=== PATIENT | male | born 1945 | race Caucasian/White ===

== ENCOUNTER 2018-04-15 06:56 | Inpatient (IN) | payer OTHER, MEDICARE ==
--- NOTE | 2018-04-15 07:52 | PDOC ---
History of Present Illness - General History Source: Patient Exam Limitations: No Limitations - History of Present Illness Initial Comments: 04/15/18 09:19 The patient is a 72 year old male with a significant PMH of COPD, afib( on eliquis), hypertension and BPH who presents to the emergency department with an injury s/p fall earlier today. The patient reports that he woke up this morning to use the rest room and slipped and fell. The patient reports that he had an episode of lightheadedness and dizziness when he was walking to the bathroom and slipped on his urine . The patient states that he fell forward but denies any loc or head injury. He denies any pain prior to falling. He also reports some difficulty speaking clearly secondary to cough. The patient reports that he recently got his flu shot. He denies any other symptoms. He denies any fever, chills, nausea, vomit, diarrhea, constipation or urinary symptoms. He denies any chest pain, shortness of breath, headache . the patient denies any other complaints. PCP: Dr. Cordoba <Mariajose Jiang - Last Filed: 04/15/18 09:20> - General History Source: Patient Exam Limitations: No Limitations <Hemalatha Manzo - Last Filed: 04/15/18 15:58> - General Chief Complaint: Injury Stated Complaint: FALL/WEAKNESS Time Seen by Provider: 04/15/18 07:52 Past History <Mariajose Jiang - Last Filed: 04/15/18 09:20> - Past Medical History Anemia: No Cardiac Disorders: Yes (A-fib) COPD: Yes Disorders: Yes (BPH) HTN: Yes - Surgical History Abdominal Surgery: Yes (hernia) Orthopedic Surgery: Yes (rt hip replacement) - Suicide/Smoking/Psychosocial Hx Smoking History: Never smoked Have you smoked in the past 12 months: No Information on smoking cessation initiated: No Hx Alcohol Use: No Drug/Substance Use Hx: No Substance Use Type: None Hx Substance Use Treatment: No <Hemalatha Manzo - Last Filed: 04/15/18 15:58> - Past Medical History Allergies/Adverse Reactions: Allergies Allergy/AdvReac Type Severity Reaction Status Date / Time No Known Allergies Allergy Verified 04/15/18 07:03 Home Medications: Ambulatory Orders Alprazolam [Xanax] 1 mg PO QID 03/06/18 Apixaban [Eliquis] 5 mg PO BID 03/06/18 Atenolol [Tenormin -] 50 mg PO DAILY 03/06/18 Folic Acid 1 mg PO DAILY 03/06/18 Clopidogrel Bisulfate [Plavix -] 75 mg PO DAILY 03/07/18 Albuterol 2.5/Ipratropium 0.5 [Duoneb -] 1 vial NEB QID PRN 03/09/18 Cefuroxime Axetil [Ceftin -] 500 mg PO Q12H 2 Days #4 tablet 03/11/18 Mineral Oil/Pet Hy-Phl [Aquaphor -] 1 applic TP BID jar 03/11/18 Prednisone See Taper PO DAILY #42 tablet 03/11/18 Tamsulosin HCl [Flomax -] 0.4 mg PO DAILY@0830 30 Days #30 cap.er.24h 03/11/18 Budesonide/Formeterol Fumarate [SYMBICORT 80/4.5mcg -] 2 puff IH BID inhaler Diltiazem Cd [Cardizem Cd -] 120 mg PO DAILY #30 cap.cd.24h 03/19/18 Docusate Sodium [Colace -] 300 mg PO HS capsule 03/19/18 Polyethylene Glycol 3350 [Miralax 119 gm Btl -] 17 gm PO DAILY bottle 03/19/18 predniSONE [Deltasone -] 20 mg PO DAILY tablet 03/19/18 Review of Systems - Review of Systems Able to Perform ROS?: Yes Comments:: 04/15/18 09:19 GENERAL/CONSTITUTIONAL: (+)injury s/p fall. No fever or chills. No weakness. HEAD, EYES, EARS, NOSE AND THROAT: No change in vision. No ear pain or discharge. No sore throat. CARDIOVASCULAR: No chest pain or shortness of breath. RESPIRATORY: (+)cough. No wheezing, or hemoptysis. GASTROINTESTINAL: No nausea, vomiting, diarrhea or constipation. GENITOURINARY: No dysuria, frequency, or change in urination. MUSCULOSKELETAL: No joint or muscle swelling or pain. No neck or back pain. SKIN: No rash NEUROLOGIC: (+)lightheaded, dizziness. No headache, vertigo, loss of consciousness, or change in strength/sensation. ENDOCRINE: No increased thirst. No abnormal weight change. HEMATOLOGIC/LYMPHATIC: No anemia, easy bleeding, or history of blood clots. ALLERGIC/IMMUNOLOGIC: No hives or skin allergy. <Mariajose Jiang - Last Filed: 04/15/18 09:20> *Physical Exam - Vital Signs Last Vital Signs Temp Pulse Resp BP Pulse Ox 97.9 F 84 20 116/68 95 04/15/18 07:03 04/15/18 07:03 04/15/18 07:03 04/15/18 07:03 04/15/18 07:03 - Physical Exam Comments: 04/15/18 09:19 GENERAL: A&O , answers questions, speaks in 3-4 word sentences The patient is in no acute distress. HEAD: Normal with no signs of trauma. EYES: PERRLA, EOMI, sclera anicteric, conjunctiva clear. ENT: Ears normal, nares patent, oropharynx clear without exudates. Moist mucous membranes. NECK: Normal range of motion, supple without lymphadenopathy, JVD, or masses. LUNGS: (+)wheezing, rhonchorous breath sounds. Breath sounds equal, no crackles. HEART:(+)distant heart sounds. Regular rate and rhythm, normal S1 and S2 without murmur, rub or gallop. ABDOMEN: Soft, nontender, normoactive bowel sounds. No guarding, no rebound. No masses palpable. EXTREMITIES: (+)right lower extremity edema. Normal range of motion. No clubbing or cyanosis. No erythema, or tenderness. NEUROLOGICAL: Cranial nerves II through XII grossly intact. Normal speech. No focal neurological deficits. MUSCULOSKELETAL: Back non-tender to palpation, no CVA tenderness SKIN: Warm, Dry, normal turgor, no rashes or lesions noted <Mariajose Jiang - Last Filed: 04/15/18 09:20> - Vital Signs Last Vital Signs Temp Pulse Resp BP Pulse Ox 97.9 F 84 20 116/68 95 04/15/18 07:03 04/15/18 07:03 04/15/18 07:03 04/15/18 07:03 04/15/18 07:03 <Hemalatha Manzo - Last Filed: 04/15/18 15:58> ED Treatment Course - LABORATORY CBC & Chemistry Diagram: 04/15/18 09:14 04/15/18 09:14 <Hemalatha Manzo - Last Filed: 04/15/18 15:58> Medical Decision Making - Critical Care Time Total Critical Care Time (minutes): 60 Critical Care Statement: The care of this patient involved high complexity decision making to prevent further life threatening deterioration of the patient 's condition and/or to evaluate & treat vital organ system(s) failure or risk of failure. - Medical Decision Making 04/15/18 11:34 EKG: SR rate of 84 bpm, axis nml, no st elevations or depression, t waves upright, right axis 04/15/18 11:35 Laboratory Tests 04/15/18 04/15/18 04/15/18 09:14 09:14 10:30 WBC 18.9 H Hgb 11.6 L Hct 35.1 L Plt Count 307 D ABG pH 7.34 L ABG pCO2 at Pt Temp 62.7 H* ABG pO2 at Pt Temp 58.6 L ABG HCO3 33.1 H Sodium 135 L Potassium 3.9 Chloride 96 L Carbon Dioxide 35 H BUN 9 Creatinine 0.4 L CXR: demonstrates RLL pneumonia Pt very hypoxic Is currently on Eliquis Will do CTA chest as well to r/o PE Admitted to Dr Poon Consults placed to ID, Cardiology Call placed to ICU resident for ICU admission given pt hypoxia Clinical impression: pneumonia, initial presentation hypoxia, initial presentation <Hemalatha Manzo - Last Filed: 04/15/18 15:58> *DC/Admit/Observation/Transfer - Attestations Scribe Attestion: 04/15/18 09:20 Documentation prepared by Mariajose Jiang, acting as medical clinic manager for Hemalatha Manzo MD. <Mariajose Jiang - Last Filed: 04/15/18 09:20> - Discharge Dispostion Decision to Admit order: Yes <Hemalatha Manzo - Last Filed: 04/15/18 15:58> Diagnosis at time of Disposition: Pneumonia Qualifiers: Pneumonia type: due to unspecified organism Laterality: right Lung location: lower lobe of lung Qualified Code(s): J18.1 - Lobar pneumonia, unspecified organism - Discharge Dispostion Condition at time of disposition: Fair
[2018-04-15] MEDS ORDERED: methylPREDNISolone NA SUCC 125 MG/2 ML VIAL IVPB ONE (08:26)
[2018-04-15] MEDS ORDERED: ALBUTEROL SO4 2.5/IPRATROPIUM 0.5 INH SOL 3 ML VIAL.NEB. NEB ONE ×4 (08:26→16:33)
[2018-04-15 09:27] LABS: BASO % 0.7 % (0-2.0); HEMATOCRIT 35.1 % (35.4-49); HEMOGLOBIN 11.6 GM/dL (11.7-16.9); LYMPH % 3.2 % (8-40); MCH 29.9 pg (25.7-33.7); MCHC 32.9 g/dl (32.0-35.9); MEAN CELL VOLUME 90.9 fl (80-96); MEAN PLT VOLUME 7.6 fl (7.5-11.1); MONO % 8.5 % (3.8-10.2); NEUT % 87.6 % (42.8-82.8); PLATELET COUNT 307 K/MM3 (134-434); RBC 3.86 M/mm3 (4.00-5.60); RDW 13.8 % (11.9-15.9); WHITE BLOOD COUNT 18.9 K/mm3 (4.0-10.0)
[2018-04-15 09:49] LABS: ALBUMIN 2.3 g/dl (3.4-5.0); ANION GAP 4 MMOL/L (8-16); BILIRUBIN,TOTAL 0.6 mg/dL (0.2-1); BLOOD UREA NITROGEN 9 mg/dL (7-18); CHLORIDE 96 mmol/L (98-107); CO2 35 mmol/L (21-32); CREATININE 0.4 mg/dL (0.55-1.3); GLUCOSE,RANDOM 117 mg/dL (74-106); POTASSIUM 3.9 mmol/L (3.5-5.1); SGOT/AST 19 U/L (15-37); SGPT/ALT 14 U/L (13-61); SODIUM 135 mmol/L (136-145); TOT PROT 5.8 g/dl (6.4-8.2)
[2018-04-15 09:53] LABS: ALK PHOS 67 U/L (45-117)
[2018-04-15] MEDS ORDERED: methylPREDNISolone NA SUCC 125 MG/2 ML VIAL ONE (09:53)
[2018-04-15] MEDS ORDERED: PIPERACILLIN/TAZOB 4.5 GM 4.5 GM in DEXTROSE 5%-WATER 100 ML IVPB ONE (10:00)
[2018-04-15] MEDS ORDERED: VANCOMYCIN 1,000 MG in DEXTROSE 5%-WATER - 250 ML IVPB ONE (10:00)
[2018-04-15 10:54] LABS: ARTERIAL BLD GAS O2 SATURATION 87.7 % (90-98.9); ARTERIAL BLOOD GAS BASE EXCESS 6.1 meq/l (-2-2); ARTERIAL BLOOD GAS PO2 58.6 mmHg (70-100); ARTERIAL BLOOD GAS pH 7.34 (7.35-7.45)
[2018-04-15 11:03] LABS: ALLENS TEST POSITIVE
[2018-04-15 11:04] LABS: ARTERIAL BLOOD GAS PCO2 62.7 mmHg (35-45)
[2018-04-15] MEDS ORDERED: VANCOMYCIN 1 GRAM (PRE-DOCKED) 1,000 MG/250 ML BAG IVPB ONE (11:23)
[2018-04-15] MEDS ORDERED: PIPERACILLIN/TAZOB 4.5 GM 4.5 GM/100 ML BAG IVPB ONE (11:23)
[2018-04-15 11:34] LABS: URINE APPEARANCE SLCLOUDY; URINE BILIRUBIN NEGATIVE (<2.0 mg/dL); URINE COLOR AMBER; URINE GLUCOSE (UA) NEGATIVE (NEGATIVE); URINE KETONE NEGATIVE (NEGATIVE); URINE NITRITE NEGATIVE (NEGATIVE); URINE UROBILINOGEN 4.0 E.U/dl mg/dL (0.2-1.0)
[2018-04-15 11:35] LABS: URINE LEUK ESTERASE 1+ (NEGATIVE); URINE PROTEIN 1+ (NEGATIVE)
[2018-04-15 11:55] LABS: EPI CELLS RARE /HPF (FEW); GRANULAR CASTS 3 /lpf; URINE MUCUS FEW
--- NOTE | 2018-04-15 12:30 | PN ---
Teaching Attending Note Name of Resident: Thien Lin ATTENDING PHYSICIAN STATEMENT I saw and evaluated the patient. I reviewed the resident's note and discussed the case with the resident. I agree with the resident's findings and plan as documented. SUBJECTIVE: Pt seen and examined in the ER. Briefly, 72yo male with h/o HTN, COPD, atrial fibrillation on anticoagulation, BPH who presents after fall at home. Denies chest pain or palpitations. [place]on short of breath and with a productive cough. No fevers, chills or sweats. No recent travel or sick contacts. Was hospitalized last month for pneumonia treated with zosyn and vanco. MRSA in sputum but felt to be contaminant. He is a former long time smoker, quit last year, smoked on average 1 1/2 PPD. Hypoxic and in respiratory distress in the ER , placed on BiPAP. OBJECTIVE: Vital Signs Period Temp Pulse Resp BP Sys/Cleaning Pulse Ox Last 24 Hr 97.9 F-98.6 F 66-84 14-20 95-116/53-68 85-98 Intake & Output 04/12/18 04/13/18 04/14/18 04/15/18 23:59 23:59 23:59 23:59 Weight 63.503 kg Gen: somnolent but arousable, mildly tachypneic on BiPAP Heart: RRR Lung: distant breath sounds Abd: soft, nontender Ext: no edema CBC, BMP 04/15/18 09:14 04/15/18 09:14 ABG Results ABG pH 7.34 (7.35-7.45) L 04/15/18 10:30 ABG pCO2 at Pt Temp 62.7 mmHg (35-45) H* 04/15/18 10:30 ABG pO2 at Pt Temp 58.6 mmHg (70-100) L 04/15/18 10:30 ABG HCO3 33.1 meq/L (22-26) H 04/15/18 10:30 ABG O2 Sat (Measured) 87.7 % (90-98.9) L 04/15/18 10:30 ABG O2 Content 13.8 % vol (15-22) L 04/15/18 10:30 ABG Base Excess 6.1 meq/l (-2-2) H 04/15/18 10:30 ASSESSMENT AND PLAN: Acute on Chronic Hypoxic and Hypercapneic Respiratory Failure RLL Pneumonia Sepsis Acute COPD Exacerbation Atrial Fibrillation HTN BPH - IV antibiotics to cover health care acquired organisms - f/u cultures - send urinary antigens - check lactate - ID eval - IV medrol 60mg q8h - inhaled bronchodilators standing and PRN - O2 to keep SpO2 >88% - BiPAP to assist in work of breathing - rate control - continue anticoagulation - ICU monitoring for now critical care time spent in reviewing chart, evaluating patient and formulating plan 35 min
--- NOTE | 2018-04-15 13:36 | EKG ---
Test Reason : Blood Pressure : / mmHG Vent. Rate : 084 BPM Atrial Rate : 075 BPM P-R Int : 160 ms QRS Dur : 066 ms QT Int : 362 ms P-R-T Axes : 079 091 091 degrees QTc Int : 427 ms POOR DATA QUALITY, INTERPRETATION MAY BE ADVERSELY AFFECTED SINUS RHYTHM WITH MARKED SINUS ARRHYTHMIA RIGHTWARD AXIS LOW VOLTAGE QRS CANNOT RULE OUT ANTEROSEPTAL INFARCT , AGE UNDETERMINED ABNORMAL ECG WHEN COMPARED WITH ECG OF 12-MAR-2018 23:23, SINUS RHYTHM HAS REPLACED ATRIAL FIBRILLATION VENT. RATE HAS DECREASED BY 49 BPM QUESTIONABLE CHANGE IN QRS DURATION Confirmed by PRAKASH KENDRICK MD ([id number]) on 04/15/2018 1:36:00 PM Referred By: Confirmed By:PRAKASH KENDRICK MD
[2018-04-15] MEDS ORDERED: ALBUTEROL SO4 2.5/IPRATROPIUM 0.5 INH SOL 3 ML VIAL.NEB. NEB PRN (14:42)
[2018-04-15] MEDS ORDERED: AZITHROMYCIN IVPB 500 MG in DEXTROSE 5%-WATER - 250 ML IVPB ONE (15:22)
--- NOTE | 2018-04-15 15:22 | PN ---
Progress Note (short form) - Note Progress Note: id consult dictated RLL pneumonia hyopoxemic hypercapneic resp failure copd mrsa contact isolation vanco/zosyn/zith cultures legionella urinary antigen Problem List - Problems (1) Respiratory failure with hypoxia and hypercapnia Code(s): J96.91 - RESPIRATORY FAILURE, UNSPECIFIED WITH HYPOXIA; J96.92 - RESPIRATORY FAILURE, UNSPECIFIED WITH HYPERCAPNIA (2) Pneumonia Code(s): J18.9 - PNEUMONIA, UNSPECIFIED ORGANISM Qualifiers: Pneumonia type: due to unspecified organism Laterality: right Lung location: lower lobe of lung Qualified Code(s): J18.1 - Lobar pneumonia, unspecified organism (3) CHF exacerbation Code(s): I50.9 - HEART FAILURE, UNSPECIFIED (4) COPD exacerbation Code(s): J44.1 - CHRONIC OBSTRUCTIVE PULMONARY DISEASE W (ACUTE) EXACERBATION (5) MRSA (methicillin resistant Staphylococcus aureus) carrier Code(s): Z22.322 - CARRIER OR SUSPECTED CARRIER OF METHICILLIN RESIS STAPH
--- NOTE | 2018-04-15 15:24 | CONSULT ---
Consultation: REQUESTING PROVIDER: Dr. Manzo CONSULT REQUEST: We have been asked to medically evaluate this patient for Dr. Ovalles. HISTORY OF PRESENT ILLNESS: A 72 y.o. M w/ PMHx. of COPD(not on home O2), A. Fib ( on Eliquis), HTN and BPH, present to the ED for syncopal episode. Pt.s provided Hx, as Pt. was on Bipap. Over the last few days Pt. has been feeling increasingly lethargic with subjective fever, and coughing with phlegm production. Pt.and Pt's unable to describe phlegm. Pt. woke up this morning and went to use the bathroom(complaining of incontinence), when the Pt. slipped on his own urine and fell to the ground. Pt. denies hitting head or losing consciousness. Pt. was recently admitted for pneumonia here last month and was treat with Vancomycin and Zosyn. Pt. had a positive(?contamination) culture for MRSA. Pt. at this time endorses "leaking urine," suprapubic abdominal pain, fever, shortness of breath and a cough that has been present for a long time. REVIEW OF SYSTEMS: CONSTITUTIONAL: Present: fever, chills, diaphoresis, malaise Absent: generalized weakness, loss of appetite, weight change CARDIOVASCULAR: Absent: chest pain, syncope, palpitations, irregular heart rate , lightheadedness, peripheral edema RESPIRATORY: Present: cough, shortness of breath Absent: dyspnea with exertion, orthopnea, wheezing, stridor, hemoptysis GASTROINTESTINAL: Present: abdominal pain Absent: abdominal distension, nausea, vomiting, diarrhea, constipation, melena, hematochezia GENITOURINARY: Present: urgency, hesitancy Absent: dysuria, frequency, hematuria , flank pain, genital pain HEMATOLOGIC/IMMUNOLOGIC: Present: frequent infections NEUROLOGIC: Present: bladder incontinence Absent: headache, bowel changes PHYSICAL EXAMINATION Vital Signs - 24 hr 04/15/18 04/15/18 04/15/18 07:03 08:20 11:50 Temperature 97.9 F 98.6 F Pulse Rate 84 Pulse Rate [ 67 Left Apical] Respiratory 20 16 Rate Blood Pressure 116/68 Blood Pressure 95/64 [Left Arm] O2 Sat by Pulse 95 85 L 98 Oximetry (%) 04/15/18 04/15/18 04/15/18 12:22 12:38 14:25 Temperature 98.2 F Pulse Rate Pulse Rate [ 66 64 Left Apical] Respiratory 14 16 Rate Blood Pressure Blood Pressure 100/53 93/47 [Left Arm] O2 Sat by Pulse 86 L 99 99 Oximetry (%) 04/15/18 14:28 Temperature 98.0 F Pulse Rate Pulse Rate [ 57 L Left Apical] Respiratory 16 Rate Blood Pressure Blood Pressure 97/55 [Left Arm] O2 Sat by Pulse 100 Oximetry (%) GENERAL: Drowsy, lethargic, in moderate respiratory distress EARS, NOSE, THROAT: On Bipap LUNGS: Decreased breath sounds, on Bipap, right-sided crackles. No accessory muscle use.- Limited Exam HEART: Soft heart beat Regular rate and rhythm, normal S1 and S2 without murmur - Limited Exam ABDOMEN: Soft, nontender, not distended, normoactive bowel sounds, no guarding, no rebound, no masses. UPPER EXTREMITIES: 2+ right radial pulses, warm, well-perfused. No cyanosis. Mild clubbing. Cap refill <2 seconds. No peripheral edema. LOWER EXTREMITIES: Pulses not appreciated, warm, well-perfused. No calf tenderness. 1+ edema. PSYCHIATRIC: Cooperative. Good eye contact. SKIN: Warm, dry, xerotic flaky skin on the lower extremities Laboratory Results - last 24 hr 04/15/18 04/15/18 04/15/18 09:14 09:14 10:30 WBC 18.9 H RBC 3.86 L Hgb 11.6 L Hct 35.1 L MCV 90.9 MCH 29.9 MCHC 32.9 RDW 13.8 Plt Count 307 D MPV 7.6 Absolute Neuts (auto) 16.5 H Neutrophils % 87.6 H Lymphocytes % 3.2 L D Monocytes % 8.5 Eosinophils % 0.0 D Basophils % 0.7 D Nucleated RBC % 0 Anticoagulation Therapy No Result Required. Puncture Site Left radial ABG pH 7.34 L ABG pCO2 at Pt Temp 62.7 H* ABG pO2 at Pt Temp 58.6 L ABG HCO3 33.1 H ABG O2 Sat (Measured) 87.7 L ABG O2 Content 13.8 L ABG Base Excess 6.1 H [place] Test Positive O2 Delivery Device No Result Required. Oxygen Flow Rate 6l Vent Mode No Result Required. Vent Rate No Result Required. Mechanical Rate No Result Required. Pressure Support Vent No Result Required. Sodium 135 L Potassium 3.9 Chloride 96 L Carbon Dioxide 35 H Anion Gap 4 L BUN 9 Creatinine 0.4 L Creat Clearance w eGFR > 60 Random Glucose 117 H Calcium 8.0 L Total Bilirubin 0.6 AST 19 ALT 14 Alkaline Phosphatase 67 Creatine Kinase 41 Troponin I 0.02 Total Protein 5.8 L Albumin 2.3 L Urine Color Urine Appearance Urine pH Ur Specific [place] Urine Protein Urine Glucose (UA) Urine Ketones Urine Blood Urine Nitrite Urine Bilirubin Urine Urobilinogen Ur Leukocyte Esterase Urine WBC (Auto) Urine RBC (Auto) Ur Epithelial Cells Granular Casts Urine Mucus 04/15/18 11:22 WBC RBC Hgb Hct MCV MCH MCHC RDW Plt Count MPV Absolute Neuts (auto) Neutrophils % Lymphocytes % Monocytes % Eosinophils % Basophils % Nucleated RBC % Anticoagulation Therapy Puncture Site ABG pH ABG pCO2 at Pt Temp ABG pO2 at Pt Temp ABG HCO3 ABG O2 Sat (Measured) ABG O2 Content ABG Base Excess [place] Test O2 Delivery Device Oxygen Flow Rate Vent Mode Vent Rate Mechanical Rate Pressure Support Vent Sodium Potassium Chloride Carbon Dioxide Anion Gap BUN Creatinine Creat Clearance w eGFR Random Glucose Calcium Total Bilirubin AST ALT Alkaline Phosphatase Creatine Kinase Troponin I Total Protein Albumin Urine Color Kimber[place] Urine Appearance Slcloudy Urine pH 5.0 D Ur Specific [place] 1.018 Urine Protein 1+ H Urine Glucose (UA) Negative Urine Ketones Negative Urine Blood 1+ H Urine Nitrite Negative Urine Bilirubin Negative Urine Urobilinogen 4.0 e.u/dl Ur Leukocyte Esterase 1+ H Urine WBC (Auto) 33 Urine RBC (Auto) 10 Ur Epithelial Cells Rare Granular Casts 3 Urine Mucus Few Active Medications Current Medications Albuterol/Ipratropium (Duoneb -) 1 amp NEB Q4H PRN PRN Reason: SHORTNESS OF BREATH Albuterol/Ipratropium (Duoneb -) 1 amp NEB RQID GE Vancomycin HCl 1,000 mg/ (Dextrose) 250 mls @ 166.667 mls/hr IVPB ONCE ONE; Protocol Stop: 04/16/18 11:29 Piperacillin Sod/Tazobactam (Sod 4.5 gm/ Dextrose) 100 mls @ 200 mls/hr IVPB ONCE ONE; Protocol Stop: 04/15/18 16:29 Methylprednisolone Sodium Succinate (Solu-Medrol -) 60 mg IVPUSH Q8H-IV GE ASSESSMENT/PLAN: A 72 y.o. M w/ PMHx. of COPD(not on home O2), A. Fib( on Eliquis), HTN and BPH, present to the ED for syncopal episode and acute respiratory distress. #Pulmonary -Pneumonia superimposed on COPD CXR: shows RLL consolidation Duonebs Q4H PRN and RQID c/w BiPAP on 60% FiO2, Rate: 12, IPAP: 12, EPAP: 6 will attempt to titrate down f/u CTA chest started Solumedrol 60mg Q8H c/w Vancomycin 1000mg daily, f/u w/ trough before 4th dose c/w Zosyn 4.5g Q6H received 1 dose of Zithromax in ED f/u Urine Legionella Ag f/u lactate received 1 dose of Solumedrol 125mg in ED #Cardiovascular -Afib c/w Eliquis (Head CT: no acute pathology) c/w Atenolol ICU monitoring Telemetry monitoring EKG #Urology -BPH c/w Tamsulosin monitor urine output bladder scan if output is low low threshold for Boyd? #F/E/N -monitor electrolytes, replete as needed -regular diet -encourage PO intake for fluid hydration #DVT PPx. -c/w Eliquis Dispo: We will continue to follow the patient. Thank you for this consultative opportunity. Visit type - Emergency Visit Emergency Visit: Yes ED Registration Date: 04/15/18 Care time: The patient presented to the Emergency Department on the above date and was hospitalized for further evaluation of their emergent condition. - New Patient This patient is new to me today: Yes Date on this admission: 04/15/18 - Critical Care Critical Care patient: No
[2018-04-15] MEDS: ALBUTEROL SO4 2.5/IPRATROPIUM 0.5 INH SOL 3 ML VIAL.NEB. NEB SCH ×2 (15:26→21:49)
[2018-04-15] MEDS ORDERED: AZITHROMYCIN IVPB 250 ML IVPB ONE (15:27)
[2018-04-15] MEDS: PIPERACILLIN/TAZOB 4.5 GM 4.5 GM in DEXTROSE 5%-WATER 100 ML IVPB ONE ×2 (15:31→16:20)
--- NOTE | 2018-04-15 17:19 | CON.CARD ---
Cardiology Consult (text) - Consultation Consultation Note: cc: fall hpi: 72 m hx copd, afib, htn, cad here s/p fall. Pt slipped and had mechanical fall at home. Also with some sob. No cp, palps, loc, pnd, orthopnea, le edema. In er found with pna and hypoxic, now on bipap. 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 pmh: per hpi psh: hip surgery social: ex tob fam: nc ros: no nvd, vision changes, bacon, muscel pain, dysuria, gib, hematuria meds: Home Medications Medication Instructions Recorded Alprazolam [Xanax] 1 mg PO QID 03/06/18 Apixaban [Eliquis] 5 mg PO BID 03/06/18 Atenolol [Tenormin -] 50 mg PO DAILY 03/06/18 Folic Acid 1 mg PO DAILY 03/06/18 Clopidogrel Bisulfate [Plavix -] 75 mg PO DAILY 03/07/18 Albuterol 2.5/Ipratropium 0.5 1 vial NEB QID PRN 03/09/18 [Duoneb -] Cefuroxime Axetil [Ceftin -] 500 mg PO Q12H 2 Days #4 tablet 03/11/18 Mineral Oil/Pet Hy-Phl [Aquaphor -] 1 applic TP BID jar 03/11/18 Prednisone See Taper PO DAILY #42 tablet 03/11/18 Tamsulosin HCl [Flomax -] 0.4 mg PO DAILY@0830 30 Days #30 03/11/18 cap.er.24h Budesonide/Formeterol Fumarate 2 puff IH BID inhaler 03/19/18 [SYMBICORT 80/4.5mcg -] Diltiazem Cd [Cardizem Cd -] 120 mg PO DAILY #30 cap.cd.24h 03/19/18 Docusate Sodium [Colace -] 300 mg PO HS capsule 03/19/18 Polyethylene Glycol 3350 [Miralax 17 gm PO DAILY bottle 03/19/18 119 gm Btl -] predniSONE [Deltasone -] 20 mg PO DAILY tablet 03/19/18 pe: Vital Signs Period Temp Pulse Resp BP Sys/Cleaning Pulse Ox Last 24 Hr 97.9 F-98.6 F 57-84 14-20 93-116/47-68 85-100 nad, no jvd rrr s1s2 no mrg coarse bs bl, on bipap, nl eff, on bipap aao3 no le e/c/c abd nt nd pos bs no jaundice diaphoresis pos dp pt Laboratory Last Values WBC 18.9 K/mm3 (4.0-10.0) H 04/15/18 09:14 RBC 3.86 M/mm3 (4.00-5.60) L 04/15/18 09:14 Hgb 11.6 GM/dL (11.7-16.9) L 04/15/18 09:14 Hct 35.1 % (35.4-49) L 04/15/18 09:14 MCV 90.9 fl (80-96) 04/15/18 09:14 MCH 29.9 pg (25.7-33.7) 04/15/18 09:14 MCHC 32.9 g/dl (32.0-35.9) 04/15/18 09:14 RDW 13.8 % (11.9-15.9) 04/15/18 09:14 Plt Count 307 K/MM3 (134-434) D 04/15/18 09:14 MPV 7.6 fl (7.5-11.1) 04/15/18 09:14 Absolute Neuts (auto) 16.5 K/mm3 (1.5-8.0) H 04/15/18 09:14 Neutrophils % 87.6 % (42.8-82.8) H 04/15/18 09:14 Lymphocytes % 3.2 % (8-40) L D 04/15/18 09:14 Monocytes % 8.5 % (3.8-10.2) 04/15/18 09:14 Eosinophils % 0.0 % (0-4.5) D 04/15/18 09:14 Basophils % 0.7 % (0-2.0) D 04/15/18 09:14 Nucleated RBC % 0 % (0-0) 04/15/18 09:14 Anticoagulation Therapy No Result Required. 04/15/18 10:30 Puncture Site Left radial 04/15/18 10:30 ABG pH 7.34 (7.35-7.45) L 04/15/18 10:30 ABG pCO2 at Pt Temp 62.7 mmHg (35-45) H* 04/15/18 10:30 ABG pO2 at Pt Temp 58.6 mmHg (70-100) L 04/15/18 10:30 ABG HCO3 33.1 meq/L (22-26) H 04/15/18 10:30 ABG O2 Sat (Measured) 87.7 % (90-98.9) L 04/15/18 10:30 ABG O2 Content 13.8 % vol (15-22) L 04/15/18 10:30 ABG Base Excess 6.1 meq/l (-2-2) H 04/15/18 10:30 Tiago Test Positive 04/15/18 10:30 O2 Delivery Device No Result Required. 04/15/18 10:30 Oxygen Flow Rate 6l 04/15/18 10:30 Vent Mode No Result Required. 04/15/18 10:30 Vent Rate No Result Required. 04/15/18 10:30 Mechanical Rate No Result Required. 04/15/18 10:30 Pressure Support Vent No Result Required. 04/15/18 10:30 Sodium 135 mmol/L (136-145) L 04/15/18 09:14 Potassium 3.9 mmol/L (3.5-5.1) 04/15/18 09:14 Chloride 96 mmol/L (98-107) L 04/15/18 09:14 Carbon Dioxide 35 mmol/L (21-32) H 04/15/18 09:14 Anion Gap 4 MMOL/L (8-16) L 04/15/18 09:14 BUN 9 mg/dL (7-18) 04/15/18 09:14 Creatinine 0.4 mg/dL (0.55-1.3) L 04/15/18 09:14 Creat Clearance w eGFR > 60 (>60) 04/15/18 09:14 Random Glucose 117 mg/dL (74-106) H 04/15/18 09:14 Calcium 8.0 mg/dL (8.5-10.1) L 04/15/18 09:14 Total Bilirubin 0.6 mg/dL (0.2-1) 04/15/18 09:14 AST 19 U/L (15-37) 04/15/18 09:14 ALT 14 U/L (13-61) 04/15/18 09:14 Alkaline Phosphatase 67 U/L (45-117) 04/15/18 09:14 Creatine Kinase 41 IU/L (26-308) 04/15/18 09:14 Troponin I 0.02 ng/ml (0.00-0.05) 04/15/18 09:14 Total Protein 5.8 g/dl (6.4-8.2) L 04/15/18 09:14 Albumin 2.3 g/dl (3.4-5.0) L 04/15/18 09:14 Urine Color Kimberly 04/15/18 11:22 Urine Appearance Slcloudy 04/15/18 11:22 Urine pH 5.0 (5.0-8.0) D 04/15/18 11:22 Ur Specific [place] 1.018 (1.001-1.035) 04/15/18 11:22 Urine Protein 1+ (NEGATIVE) H 04/15/18 11:22 Urine Glucose (UA) Negative (NEGATIVE) 04/15/18 11:22 Urine Ketones Negative (NEGATIVE) 04/15/18 11:22 Urine Blood 1+ (NEGATIVE) H 04/15/18 11:22 Urine Nitrite Negative (NEGATIVE) 04/15/18 11:22 Urine Bilirubin Negative (<2.0 mg/dL) 04/15/18 11:22 Urine Urobilinogen 4.0 e.u/dl mg/dL (0.2-1.0) 04/15/18 11:22 Ur Leukocyte Esterase 1+ (NEGATIVE) H 04/15/18 11:22 Urine WBC (Auto) 33 /hpf (3-5) 04/15/18 11:22 Urine RBC (Auto) 10 /hpf (0-3) 04/15/18 11:22 Ur Epithelial Cells Rare /HPF (FEW) 04/15/18 11:22 Granular Casts 3 /lpf 04/15/18 11:22 Urine Mucus Few 04/15/18 11:22 ecg: sr,nl intervals, no ischemic changes cxr: right pna echo 02/2018: nl lv/rv, mild tr, mod phtn a/p: 72 m hx copd, afib, htn, cad here s/p fall. fall: -mechanical, no signs of cardiac etiology pna: -cont abx, supplemental o2 afib: -in sr now -was on atenolol 50 qd and dilt 120 qd but now bp low likely from sepsis. hold these meds for now, monitor on tele -cont home eliquis htn: -bp on low side in setting of infection, holding home meds for now cad: -unclear details, pt said he had cath at [facility] about 10 yrs ago and was told he had narrowing in artery but that due to its location it could not be fixed. he says he was started on plavix and told to continue. Seems that cad is no longer and indication for him to take plavix now that he is on eliquis. Would consider dc plavix when more info is available.
--- NOTE | 2018-04-15 19:25 | CONS ---
DATE OF CONSULTATION: DATE OF DICTATION: 04/15/2018 INFECTIOUS DISEASE CONSULTATION REQUESTING PHYSICIAN: Georgina Michelle M.D. CONSULTING PHYSICIAN: Zenaida Kolb M.D. HISTORY OF PRESENT ILLNESS: This is a 72-year-old man who I originally met in early February. He has had 2 admissions to [facility]. He was here from the to , and again from the to the . The first admission was for pneumonia, he was treated with Zosyn. He had just been in the hospital at [place] prior to that, and was treated with Zosyn. He had MRSA colonization of his sputum. He had urinary retention. He was discharged on the , he returned on the with atrial fibrillation. He had the Boyd catheter apparently removed. He is now readmitted today early this morning for a syncopal episode. Over the past few days he had been increasingly lethargic with fever and cough with phlegm production. He woke up, he went to the bathroom, and then he slipped and fell. He was brought to the emergency room. There was no actual syncope. He was treated, and he had a chest x-ray, was noted to be hypoxic, had a large right lower lobe infiltrate, he was started on vancomycin and Zosyn. I am asked to see him for further recommendations. He is currently on BiPAP and unable to contribute to the history which is from the chart. PAST MEDICAL HISTORY: Notable for history of urinary retention. He has had a Boyd in the past. He has a history of COPD, atrial fibrillation, hypertension, bronchitis. He is oxygen dependent. SURGICAL HISTORY: Notable for hernia repair, pacemaker, and appendectomy. He has also had a right hip fracture. ALLERGIES: He has no known drug allergies. SOCIAL HISTORY: He is a former smoker. He stopped one year ago. Former alcohol use. He stopped drinking 10 years ago. 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 He lives with his . He is followed by Dr. Cordoba in the community. MEDICATION: At home include, it is hard to know if this is an up to date list. Includes prednisone, Flomax, Miralax, valproic acid, Colace, Cardizem, Plavix, Symbicort, Tenormin, Eliquis, Xanax, and DuoNeb. REVIEW OF SYSTEMS: Per the he has apparently been having fever over the last several days and becoming more lethargic at home. PHYSICAL EXAMINATION: GENERAL: He is a thin man on BiPAP, he is arousable, saturating 100%. VITAL SIGNS: Temperature 98.4, has had no fever . Pulse of 61, blood pressure 95/46, respiratory rate 16. He is on BiPAP saturating 98%. HEENT: Normocephalic. Eyes are anicteric. I cannot look in his mouth. NECK: Supple. LUNGS: Diminished breath sounds at the right base. HEART: Regular rate and rhythm. ABDOMEN: Soft, nontender. He has no palpable bladder. EXTREMITIES: Without edema. LABORATORY: White count is 18.9, hemoglobin 11.6, platelets of 307. His pO2 on 6 L was 58. His BUN and creatinine are 9 and 0.4. Liver function tests normal. Sodium 135. Urinalysis was 1%. Leukocyte esterase with 33 white cells. Urine and blood cultures are pending. He had a prior sputum on March 07 with MRSA. Chest x-ray reveals a right lower lobe infiltrate. CAT scan reveals no acute changes. 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 He received vancomycin and Zosyn in the emergency room, which I would continue . I would add Zithromax at this time, follow up his blood cultures, obtain a sputum culture if possible and obtain urinary antigens. Management of his chronic obstructive pulmonary disease per pulmonary. Further recommendations to follow. Rivera [id number]
[2018-04-15] MEDS ORDERED: PIPERACILLIN/TAZOBACTAM 4.5 GM VIAL IVPB ONE (21:19)
[2018-04-15] MEDS ORDERED: DEXTROSE 5%-WATER 100 ML IVPB ONE (21:19)
[2018-04-15] MEDS: PIPERACILLIN/TAZOB 4.5 GM 4.5 GM in DEXTROSE 5%-WATER 100 ML IVPB SCH (21:38)
[2018-04-15] MEDS: APIXABAN 5 MG TABLET PO SCH (21:39)
[2018-04-15] MEDS: methylPREDNISolone NA SUCC 40 MG/1 ML VIAL IVPUSH SCH (21:45)
[2018-04-15] MEDS: MUPIROCIN 2% TOPICAL OINTMENT FOR DECOLONIZATION NS SCH (21:46)
[2018-04-15] MEDS ORDERED: CHLORHEXIDINE GLUCONATE 4% CLEANSER FOR DECOLONIZATION TP SCH (22:00)
[2018-04-15] MEDS ORDERED: ALPRAZolam 2 MG TABLET PO ONE (23:30)
--- NOTE | 2018-04-15 23:34 | HP ---
Admitting History and Physical - Admission Chief Complaint: fall / cough / fever History of Present Illness: HISTORY OF PRESENT ILLNESS: A 72 y.o. M w/ PMHx. of COPD(not on home O2), A. Fib ( on Eliquis), HTN and BPH, present to the ED for syncopal episode. Pt.s provided Hx, as Pt. was on Bipap. Over the last few days Pt. has been feeling increasingly lethargic with subjective fever, and coughing with phlegm production. Pt.and Pt's unable to describe phlegm. Pt. woke up this morning and went to use the bathroom(complaining of incontinence), when the Pt. slipped on his own urine and fell to the ground. Pt. denies hitting head or losing consciousness. Pt. was recently admitted for pneumonia here last month and was treat with Vancomycin and Zosyn. Pt. had a positive(?contamination) culture for MRSA. Pt. at this time endorses "leaking urine," suprapubic abdominal pain, fever, shortness of breath and a cough that has been present for a long time. History Source: Medical Record Limitations to Obtaining History: Other (patient on bipap) - Past Medical History Cardiovascular: Yes: AFIB, HTN Pulmonary: Yes: Bronchitis, COPD, O2 Dependent, Pneumonia Dermatology: Yes: Other (B/L feet scars/ scratches) - Past Surgical History Past Surgical History: Yes: Appendectomy, Hernia Repair, Permanent Pacemaker - Smoking History Smoking history: Former smoker Have you smoked in the past 12 months: No - Alcohol/Substance Use Hx Alcohol Use: No - Social History Usual Living Arrangement: Yes: With Significant Other Home Medications - Allergies Allergies/Adverse Reactions: Allergies Allergy/AdvReac Type Severity Reaction Status Date / Time No Known Allergies Allergy Verified 04/15/18 07:03 - Home Medications Home Medications: Ambulatory Orders Alprazolam [Xanax] 1 mg PO QID 03/06/18 Apixaban [Eliquis] 5 mg PO BID 03/06/18 Atenolol [Tenormin -] 50 mg PO DAILY 03/06/18 Folic Acid 1 mg PO DAILY 03/06/18 Clopidogrel Bisulfate [Plavix -] 75 mg PO DAILY 03/07/18 Albuterol 2.5/Ipratropium 0.5 [Duoneb -] 1 vial NEB QID PRN 03/09/18 Cefuroxime Axetil [Ceftin -] 500 mg PO Q12H 2 Days #4 tablet 03/11/18 Mineral Oil/Pet Hy-Phl [Aquaphor -] 1 applic TP BID jar 03/11/18 Prednisone See Taper PO DAILY #42 tablet 03/11/18 Tamsulosin HCl [Flomax -] 0.4 mg PO DAILY@0830 30 Days #30 cap.er.24h 03/11/18 Budesonide/Formeterol Fumarate [SYMBICORT 80/4.5mcg -] 2 puff IH BID inhaler Diltiazem Cd [Cardizem Cd -] 120 mg PO DAILY #30 cap.cd.24h 03/19/18 Docusate Sodium [Colace -] 300 mg PO HS capsule 03/19/18 Polyethylene Glycol 3350 [Miralax 119 gm Btl -] 17 gm PO DAILY bottle 03/19/18 predniSONE [Deltasone -] 20 mg PO DAILY tablet 03/19/18 Review of Systems - Review of Systems Constitutional: reports: Chills, Fever, Lethargy, Weakness. denies: Night Sweats, Unintentional Wgt. Loss Eyes: reports: No Symptoms HENT: reports: No Symptoms, Nasal Congestion Neck: reports: No Symptoms Cardiovascular: reports: Shortness of Breath. denies: Chest Pain, Palpitations Respiratory: reports: Cough. denies: Orthopnea, SOB, Wheezing Gastrointestinal: reports: No Symptoms Genitourinary: reports: No Symptoms Breasts: reports: No Symptoms Reported Musculoskeletal: reports: No Symptoms Integumentary: reports: No Symptoms Neurological: reports: Pre-Existing Deficit Endocrine: reports: No Symptoms Hematology/Lymphatic: reports: No Symptoms Psychiatric: reports: No Symptoms Physical Examination Vital Signs: Vital Signs Temperature 98.0 F 04/15/18 19:01 Pulse Rate 63 04/15/18 21:00 Respiratory Rate 17 04/15/18 21:00 Blood Pressure 100/49 04/15/18 21:00 O2 Sat by Pulse Oximetry (%) 98 04/15/18 21:30 Labs: CBC, BMP 04/15/18 09:14 04/15/18 09:14 Problem List - Problems (1) Pneumonia Code(s): J18.9 - PNEUMONIA, UNSPECIFIED ORGANISM Qualifiers: Pneumonia type: due to unspecified organism Laterality: right Lung location: lower lobe of lung Qualified Code(s): J18.1 - Lobar pneumonia, unspecified organism (2) Respiratory failure with hypoxia and hypercapnia Code(s): J96.91 - RESPIRATORY FAILURE, UNSPECIFIED WITH HYPOXIA; J96.92 - RESPIRATORY FAILURE, UNSPECIFIED WITH HYPERCAPNIA (3) CHF exacerbation Code(s): I50.9 - HEART FAILURE, UNSPECIFIED (4) COPD exacerbation Code(s): J44.1 - CHRONIC OBSTRUCTIVE PULMONARY DISEASE W (ACUTE) EXACERBATION (5) Atrial fibrillation Code(s): I48.91 - UNSPECIFIED ATRIAL FIBRILLATION Qualifiers: Atrial fibrillation type: paroxysmal Qualified Code(s): I48.0 - Paroxysmal atrial fibrillation (6) Coronary artery disease Code(s): I25.10 - ATHSCL HEART DISEASE OF [place] CORONARY ARTERY W/O ANG PCTRS Qualifiers: Coronary Disease-Associated Artery/Lesion type: [place] artery [place] vs. transplanted heart: [place] heart Associated angina: without angina Qualified Code(s): I25.10 - Atherosclerotic heart disease of [place] coronary artery without angina pectoris (7) HTN (hypertension) Code(s): I10 - ESSENTIAL (PRIMARY) HYPERTENSION Qualifiers: Hypertension type: essential hypertension Qualified Code(s): I10 - Essential (primary) hypertension Assessment/Plan hpi: 72 m hx copd, afib, htn, cad here s/p fall. Pt slipped and had mechanical fall at home. Also with some sob. No cp, palps, loc, pnd, orthopnea, le edema. In er found with pna and hypoxic, now on bipap.
[2018-04-15] MEDS: VANCOMYCIN 1,000 MG in DEXTROSE 5%-WATER - 250 ML IVPB SCH (23:59)
[2018-04-16] MEDS: methylPREDNISolone NA SUCC 40 MG/1 ML VIAL IVPUSH SCH ×3 (03:00→17:01)
[2018-04-16] MEDS: PIPERACILLIN/TAZOB 4.5 GM 4.5 GM in DEXTROSE 5%-WATER 100 ML IVPB SCH ×3 (03:00→17:01)
[2018-04-16] MEDS ORDERED: DEXTROSE 5%-WATER 100 ML IVPB ONE ×3 (03:36→16:32)
[2018-04-16] MEDS ORDERED: PIPERACILLIN/TAZOBACTAM 4.5 GM VIAL IVPB ONE ×3 (03:36→16:32)
[2018-04-16 06:23] LABS: BASO % 0.2 % (0-2.0); HEMATOCRIT 32.1 % (35.4-49); HEMOGLOBIN 10.7 GM/dL (11.7-16.9); LYMPH % 4.2 % (8-40); MCH 29.9 pg (25.7-33.7); MCHC 33.4 g/dl (32.0-35.9); MEAN CELL VOLUME 89.7 fl (80-96); MEAN PLT VOLUME 8.1 fl (7.5-11.1); MONO % 4.1 % (3.8-10.2); NEUT % 91.5 % (42.8-82.8); PLATELET COUNT 272 K/MM3 (134-434); RBC 3.58 M/mm3 (4.00-5.60); RDW 13.5 % (11.9-15.9); WHITE BLOOD COUNT 10.1 K/mm3 (4.0-10.0)
[2018-04-16 06:30] LABS: INR 1.86 (0.83-1.09)
[2018-04-16 06:33] LABS: ACTIVATED PTT 32.1 SECONDS (25.2-36.5)
[2018-04-16 06:44] LABS: CHLORIDE 92 mmol/L (98-107); POTASSIUM 3.9 mmol/L (3.5-5.1); SODIUM 132 mmol/L (136-145)
[2018-04-16 06:51] LABS: ANION GAP 3 MMOL/L (8-16); BLOOD UREA NITROGEN 10 mg/dL (7-18); CALCIUM 8.2 mg/dL (8.5-10.1); CO2 37 mmol/L (21-32); CREATININE 0.3 mg/dL (0.55-1.3); GLUCOSE,RANDOM 144 mg/dL (74-106); MAGNESIUM 2.2 mg/dL (1.8-2.4); PHOSPHOROUS 3.4 mg/dL (2.5-4.9)
[2018-04-16] MEDS: ALBUTEROL SO4 2.5/IPRATROPIUM 0.5 INH SOL 3 ML VIAL.NEB. NEB SCH ×4 (08:30→20:04)
--- NOTE | 2018-04-16 09:22 | PN ---
Progress Note (short form) - Note Progress Note: &2 y/o male came to ER for syncopal episode/fall. Found to be hypoxic with Rt lower lobe pneumonia. No c/o pain. Intermittent coughing/congestion noted. Reports being hungry. Vital Signs Period Temp Pulse Resp BP Sys/Cleaning Pulse Ox Last 24 Hr 97.2 F-98.6 F 51-67 14-22 93-124/45-69 86-100 CBC, BMP 04/16/18 05:30 04/16/18 05:30 HEENT- Normocephalic Neck- Supple Lungs- Diminished rt Lower lobe Heart- S1/S2 Abd- Soft, nt Ext- No LE edema Active Medications Albuterol/Ipratropium (Duoneb -) 1 amp NEB Q4H PRN PRN Reason: SHORTNESS OF BREATH Last Admin: 04/15/18 16:17 Dose: 1 amp Albuterol/Ipratropium (Duoneb -) 1 amp NEB RQID GE Last Admin: 04/15/18 21:49 Dose: 1 amp Apixaban (Eliquis -) 5 mg PO BID GE Last Admin: 04/15/18 21:39 Dose: 5 mg Chlorhexidine Gluconate (Hibiclens For Decolonization -) 1 applic TP HS GE Last Admin: 04/15/18 21:46 Dose: 1 applic Chlorhexidine Gluconate (Hibiclens For Decolonization -) 1 applic TP HS GE Piperacillin Sod/Tazobactam (Sod 4.5 gm/ Dextrose) 100 mls @ 200 mls/hr IVPB Q8H-IV GE; Protocol Last Admin: 04/16/18 03:00 Dose: 200 mls/hr Vancomycin HCl 1,000 mg/ (Dextrose) 250 mls @ 166.667 mls/hr IVPB Q12H GE; Protocol Last Admin: 04/15/18 23:59 Dose: 166.667 mls/hr Methylprednisolone Sodium Succinate (Solu-Medrol -) 60 mg IVPUSH Q8H-IV GE Last Admin: 04/16/18 03:00 Dose: 60 mg Mupirocin (Bactroban Ointment (For Decolonization) -) 1 applic NS BID GE Stop: 04/20/18 21:59 Last Admin: 04/15/18 21:46 Dose: 1 applic Mupirocin (Bactroban Ointment (For Decolonization) -) 1 applic NS BID GE Stop: 04/21/18 09:59 Pneumococcal 13-Valent Conj Vacc (Prevnar 13 Syringe -) 0.5 ml IM .ONCE ONE Stop: 04/16/18 10:01 #Pneumonia Cont IV antibiotics/ steroids WBC trending down now 10.1 Cult pending # COPD ON O2 via nasal cannula Sat 96 Duoneb/ Albuterol PRN #Afib Eliquis 5 mg BID Plan- Awaiting breakfast. Transfer out of ICU today if pt remains stable. Problem List - Problems (1) Pneumonia Code(s): J18.9 - PNEUMONIA, UNSPECIFIED ORGANISM Qualifiers: Pneumonia type: due to unspecified organism Laterality: right Lung location: lower lobe of lung Qualified Code(s): J18.1 - Lobar pneumonia, unspecified organism (2) Respiratory failure with hypoxia and hypercapnia Code(s): J96.91 - RESPIRATORY FAILURE, UNSPECIFIED WITH HYPOXIA; J96.92 - RESPIRATORY FAILURE, UNSPECIFIED WITH HYPERCAPNIA (3) CHF exacerbation Code(s): I50.9 - HEART FAILURE, UNSPECIFIED (4) COPD exacerbation Code(s): J44.1 - CHRONIC OBSTRUCTIVE PULMONARY DISEASE W (ACUTE) EXACERBATION (5) Atrial fibrillation Code(s): I48.91 - UNSPECIFIED ATRIAL FIBRILLATION Qualifiers: Atrial fibrillation type: paroxysmal Qualified Code(s): I48.0 - Paroxysmal atrial fibrillation (6) Coronary artery disease Code(s): I25.10 - ATHSCL HEART DISEASE OF [place] CORONARY ARTERY W/O ANG PCTRS Qualifiers: Coronary Disease-Associated Artery/Lesion type: [place] artery [place] vs. transplanted heart: [place] heart Associated angina: without angina Qualified Code(s): I25.10 - Atherosclerotic heart disease of [place] coronary artery without angina pectoris (7) HTN (hypertension) Code(s): I10 - ESSENTIAL (PRIMARY) HYPERTENSION Qualifiers: Hypertension type: essential hypertension Qualified Code(s): I10 - Essential (primary) hypertension
[2018-04-16] MEDS: APIXABAN 5 MG TABLET PO SCH ×2 (09:53→21:48)
[2018-04-16] MEDS ORDERED: PNEUMOC 13-VAL CONJ-DIP CRM/PF 0.5 ML DISP.SYRIN IM ONE (10:00)
[2018-04-16] MEDS ORDERED: MUPIROCIN 2% TOPICAL OINTMENT FOR DECOLONIZATION NS SCH ×2 (10:00→22:00)
[2018-04-16] MEDS ORDERED: VANCOMYCIN 1,000 MG in DEXTROSE 5%-WATER - 250 ML IVPB ONE (10:00)
[2018-04-16 11:07] LABS: ACANTHOCYTES 0; ANISOCYTOSIS 0; HELMET CELLS 0; HOWELL-JOLLY BODIES 0; MACROCYTOSIS 0; OVALOCYTE 0; PLATELET ESTIMATE NORMAL; ROULEAU 0; SICKELED CELLS 0; TARGET CELLS 0; TEAR DROP CELLS 0; TOXIC GRANULATION 0
[2018-04-16] MEDS: VANCOMYCIN 1,000 MG in DEXTROSE 5%-WATER - 250 ML IVPB SCH ×2 (11:28→22:51)
[2018-04-16] MEDS ORDERED: ALBUTEROL SO4 0.083% IH SOL 2.5 MG/3 ML VIAL.NEB. NEB PRN ×2 (11:34→18:03)
--- NOTE | 2018-04-16 11:54 | PN ---
Progress Note (short form) - Note Progress Note: s: less sob today, no cp palps dizzy o: Vital Signs Period Temp Pulse Resp BP Sys/Cleaning Pulse Ox Last 24 Hr 97.2 F-98.6 F 51-67 14-22 93-124/45-69 86-100 nad, no jvd rrr s1s2 no mrg coarse bs bl, nl eff, aao3 no le e/c/c abd nt nd pos bs no jaundice diaphoresis Current Medications Generic Name Dose Route Start Last Admin Trade Name Freq PRN Reason Stop Dose Admin Albuterol Sulfate 1 amp 04/16/18 11:34 Ventolin 0.083% Nebulizer Soln - NEB Q8H PRN SHORT OF BREATH/WHEEZING Albuterol/Ipratropium 1 amp 04/15/18 16:00 04/15/18 21:49 Duoneb - NEB 1 amp RQID GE Administration Apixaban 5 mg 04/15/18 22:00 04/16/18 09:53 Eliquis - PO 5 mg BID GE Administration Chlorhexidine Gluconate 1 applic 04/15/18 22:00 04/15/18 21:46 Hibiclens For Decolonization - TP 1 applic HS GE Administration Chlorhexidine Gluconate 1 applic 04/16/18 22:00 Hibiclens For Decolonization - TP HS GE Piperacillin Sod/Tazobactam 100 mls @ 200 mls/hr 04/15/18 18:45 04/16/18 09: 55 Sod 4.5 gm/ Dextrose IVPB 200 mls/hr Q8H-IV GE Administration Protocol Vancomycin HCl 1,000 mg/ 250 mls @ 166.667 mls/hr 04/15/18 23:00 04/16/18 11: 28 Dextrose IVPB 166.667 mls/hr Q12H GE Administration Protocol Methylprednisolone Sodium Succinate 60 mg 04/15/18 18:00 04/16/18 09:52 Solu-Medrol - IVPUSH 60 mg Q8H-IV GE Administration Mupirocin 1 applic 04/15/18 22:00 04/15/18 21:46 Bactroban Ointment (For Decolonization) - NS 04/20/18 21:59 1 applic BID GE Administration Mupirocin 1 applic 04/16/18 10:00 04/16/18 09:51 Bactroban Ointment (For Decolonization) - NS 04/21/18 09:59 Not Given BID GE CBC, BMP 04/16/18 05:30 04/16/18 05:30 ecg: sr,nl intervals, no ischemic changes cxr: right pna echo 02/2018: nl lv/rv, mild tr, mod phtn a/p: 72 m hx copd, afib, htn, cad here s/p fall. fall: -mechanical, no signs of cardiac etiology pna: -cont abx, supplemental o2 afib: -in sr now -was on atenolol 50 qd and dilt 120 qd but now bp low likely from sepsis. hold these meds for now, monitor on tele -cont home eliquis htn: -bp on low side in setting of infection, holding home meds for now cad: -unclear details, pt said he had cath at [facility] about 10 yrs ago and was told he had narrowing in artery but that due to its location it could not be fixed. he says he was started on plavix and told to continue. Seems that cad is no longer and indication for him to take plavix now that he is on eliquis. Would consider dc plavix if no other indication.
--- NOTE | 2018-04-16 11:54 | PN ---
Teaching Attending Note Name of Resident: Thien Lin ATTENDING PHYSICIAN STATEMENT I saw and evaluated the patient. I reviewed the resident's note and discussed the case with the resident. I agree with the resident's findings and plan as documented. SUBJECTIVE: Pt seen and examined in the ICU. Breathing much improved today. Off BiPAP, tolerating PO. +productive cough. No fevers recorded. OBJECTIVE: Vital Signs Period Temp Pulse Resp BP Sys/Cleaning Pulse Ox Last 24 Hr 97.2 F-98.6 F 51-67 14-22 93-124/45-69 86-100 Intake & Output 04/13/18 04/14/18 04/15/18 04/16/18 23:59 23:59 23:59 23:59 Intake Total 350 250 Balance 350 250 Weight 62.9 kg Gen: less tachypneic Heart: RRR Lung: distant breath sounds Abd: soft, nontender Ext: no edema CBC, BMP 04/16/18 05:30 04/16/18 05:30 Active Medications Albuterol Sulfate (Ventolin 0.083% Nebulizer Soln -) 1 amp NEB Q8H PRN PRN Reason: SHORT OF BREATH/WHEEZING Albuterol/Ipratropium (Duoneb -) 1 amp NEB RQID GE Last Admin: 04/15/18 21:49 Dose: 1 amp Apixaban (Eliquis -) 5 mg PO BID GE Last Admin: 04/16/18 09:53 Dose: 5 mg Chlorhexidine Gluconate (Hibiclens For Decolonization -) 1 applic TP HS GE Last Admin: 04/15/18 21:46 Dose: 1 applic Chlorhexidine Gluconate (Hibiclens For Decolonization -) 1 applic TP HS GE Piperacillin Sod/Tazobactam (Sod 4.5 gm/ Dextrose) 100 mls @ 200 mls/hr IVPB Q8H-IV GE; Protocol Last Admin: 04/16/18 09:55 Dose: 200 mls/hr Vancomycin HCl 1,000 mg/ (Dextrose) 250 mls @ 166.667 mls/hr IVPB Q12H GE; Protocol Last Admin: 04/16/18 11:28 Dose: 166.667 mls/hr Methylprednisolone Sodium Succinate (Solu-Medrol -) 60 mg IVPUSH Q8H-IV GE Last Admin: 04/16/18 09:52 Dose: 60 mg Mupirocin (Bactroban Ointment (For Decolonization) -) 1 applic NS BID [facility] Stop: 04/20/18 21:59 Last Admin: 04/15/18 21:46 Dose: 1 applic Mupirocin (Bactroban Ointment (For Decolonization) -) 1 applic NS BID [facility] Stop: 04/21/18 09:59 Last Admin: 04/16/18 09:51 Dose: Not Given ASSESSMENT AND PLAN: Acute on Chronic Hypoxic and Hypercapneic Respiratory Failure RLL Pneumonia Sepsis Acute COPD Exacerbation Atrial Fibrillation HTN BPH - continue antibiotics per ID - f/u cultures, send sputum - send urinary antigens - can decrease medrol to 40mg q8h - inhaled bronchodilators standing and PRN - O2 to keep SpO2 >88% - BiPAP as needed to assist in work of breathing - rate control - continue anticoagulation - can monitor on floor critical care time spent in reviewing chart, evaluating patient and formulating plan 35 min
[2018-04-16] MEDS ORDERED: ATENOLOL 50 MG TABLET (FP) PO SCH (12:30)
[2018-04-16] MEDS: MUPIROCIN 2% TOPICAL OINTMENT FOR DECOLONIZATION NS SCH ×2 (13:22→21:48)
[2018-04-16] MEDS: ALPRAZolam 0.25 MG TABLET PO SCH ×3 (13:42→21:50)
--- NOTE | 2018-04-16 13:58 | PN ---
Physical Exam: SUBJECTIVE: Patient seen and examined. Pt. is asking for Flu vaccine when healthy. No acute events overnight, denies complaints except to eat and to get a private bed if transferred from the ICU. OBJECTIVE: Vital Signs Period Temp Pulse Resp BP Sys/Cleaning Pulse Ox Last 24 Hr 97.2 F-98.6 F 51-74 14-22 95-124/45-69 96-100 GENERAL: The patient is awake, alert, in no acute distress. HEAD: Normal with no signs of trauma. EYES: PERRL, extraocular movements intact, sclera anicteric, conjunctiva clear. No ptosis. ENT: Ears normal, nares patent, oropharynx clear without exudates, moist mucous membranes. NECK: Trachea midline, full range of motion, supple. LUNGS: Decreased breath sounds, mild expiratory wheezes- improved from yesterday , no crackles, wet sounding cough with white sputum production, no accessory muscle use. HEART: Soft beat, regular rate and rhythm, S1, S2 without murmur ABDOMEN: Soft, nontender, nondistended, normoactive bowel sounds, no guarding, no rebound EXTREMITIES: LLE 1+ pulse, RLE pulse not appreciated, Right radial 1+ pulse, All extremities were warm, well-perfused, RLE has trace edema. NEUROLOGICAL: Normal speech, gait not observed. PSYCH: Normal mood, normal affect. SKIN: Warm, dry. LE xerotic w/ flaky skin Laboratory Results - last 24 hr 04/15/18 04/16/18 04/16/18 16:43 05:30 05:30 WBC 10.1 H RBC 3.58 L Hgb 10.7 L Hct 32.1 L MCV 89.7 MCH 29.9 MCHC 33.4 RDW 13.5 Plt Count 272 MPV 8.1 Absolute Neuts (auto) 9.2 H Neutrophils % 91.5 H Neutrophils % (Manual) 93.0 H Band Neutrophils % 1.0 Lymphocytes % 4.2 L D Lymphocytes % (Manual) 3.0 L D Monocytes % 4.1 Monocytes % (Manual) 3 L Eosinophils % 0.0 Eosinophils % (Manual) 0.0 Basophils % 0.2 Basophils % (Manual) 0.0 Myelocytes % (Man) 0 Promyelocytes % (Man) 0 Blast Cells % (Manual) 0 Nucleated RBC % 0 Metamyelocytes 0 Hypochromia 0 Toxic Granulation 0 Dohle Bodies 0 Platelet Estimate Normal Polychromasia 0 Poikilocytosis 0 Basophilic Stippling 0 Anisocytosis 0 Microcytosis 0 Macrocytosis 0 Spherocytes 0 Sickle Cells 0 Target Cells 0 Tear Drop Cells 0 Ovalocytes 0 Stomatocytes 0 Helmet Cells 0 [place] Bodies 0 [place] Rings 0 Jerel Cells 0 Acanthocytes (Spur) 0 Rouleaux 0 Fragmented RBCs 0 Schistocytes 0 PT with INR 21.00 H INR 1.86 H PTT (Actin FS) 32.1 Sodium Potassium Chloride Carbon Dioxide Anion Gap BUN Creatinine Creat Clearance w eGFR POC Glucometer Random Glucose Lactic Acid 2.1 H Calcium Phosphorus Magnesium 04/16/18 04/16/18 05:30 05:50 WBC RBC Hgb Hct MCV MCH MCHC RDW Plt Count MPV Absolute Neuts (auto) Neutrophils % Neutrophils % (Manual) Band Neutrophils % Lymphocytes % Lymphocytes % (Manual) Monocytes % Monocytes % (Manual) Eosinophils % Eosinophils % (Manual) Basophils % Basophils % (Manual) Myelocytes % (Man) Promyelocytes % (Man) Blast Cells % (Manual) Nucleated RBC % Metamyelocytes Hypochromia Toxic Granulation Dohle Bodies Platelet Estimate Polychromasia Poikilocytosis Basophilic Stippling Anisocytosis Microcytosis Macrocytosis Spherocytes Sickle Cells Target Cells Tear Drop Cells Ovalocytes Stomatocytes Helmet Cells [place] Bodies [place] Rings Jerel Cells Acanthocytes (Spur) Rouleaux Fragmented RBCs Schistocytes PT with INR INR PTT (Actin FS) Sodium 132 L Potassium 3.9 Chloride 92 L Carbon Dioxide 37 H Anion Gap 3 L BUN 10 Creatinine 0.3 L Creat Clearance w eGFR > 60 POC Glucometer [phone] Random Glucose 144 H Lactic Acid Calcium 8.2 L Phosphorus 3.4 Magnesium 2.2 Active Medications Current Medications Albuterol Sulfate (Ventolin 0.083% Nebulizer Soln -) 1 amp NEB Q8H PRN PRN Reason: SHORT OF BREATH/WHEEZING Albuterol/Ipratropium (Duoneb -) 1 amp NEB RQID [facility] Last Admin: 04/16/18 11:40 Dose: 1 amp Alprazolam (Xanax -) 1 mg PO QID [facility] Last Admin: 04/16/18 13:42 Dose: 1 mg Apixaban (Eliquis -) 5 mg PO BID [facility] Last Admin: 04/16/18 09:53 Dose: 5 mg Atenolol (Tenormin -) 50 mg PO DAILY [facility] Last Admin: 04/16/18 13:22 Dose: 50 mg Chlorhexidine Gluconate (Hibiclens For Decolonization -) 1 applic TP HS [facility] Last Admin: 04/15/18 21:46 Dose: 1 applic Chlorhexidine Gluconate (Hibiclens For Decolonization -) 1 applic TP HS [facility] Piperacillin Sod/Tazobactam (Sod 4.5 gm/ Dextrose) 100 mls @ 200 mls/hr IVPB Q8H-IV [facility]; Protocol Last Admin: 04/16/18 09:55 Dose: 200 mls/hr Vancomycin HCl 1,000 mg/ (Dextrose) 250 mls @ 166.667 mls/hr IVPB Q12H [facility]; Protocol Last Admin: 04/16/18 11:28 Dose: 166.667 mls/hr Azithromycin 500 mg/ Dextrose 250 mls @ 250 mls/hr IVPB DAILY [facility] Methylprednisolone Sodium Succinate (Solu-Medrol -) 60 mg IVPUSH Q8H-IV [facility] Last Admin: 04/16/18 09:52 Dose: 60 mg Mupirocin (Bactroban Ointment (For Decolonization) -) 1 applic NS BID [facility] Stop: 04/20/18 21:59 Last Admin: 04/16/18 13:22 Dose: 1 applic Mupirocin (Bactroban Ointment (For Decolonization) -) 1 applic NS BID [facility] Stop: 04/21/18 09:59 Last Admin: 04/16/18 09:51 Dose: Not Given Tamsulosin HCl (Flomax -) 0.4 mg PO DAILY@0830 [facility] ASSESSMENT/PLAN: A 72 y.o. M w/ PMHx. of COPD(not on home O2), A. Fib( on Eliquis), HTN and BPH, present to the ED for syncopal episode and acute respiratory distress. #Pulmonary -Pneumonia superimposed on COPD f/u Sputum Cx. CXR: shows RLL consolidation Duonebs RQID and Albuterol Neb Q8H PRN switch to 2L NC f/u CTA chest Decreased Solumedrol to 40mg Q8H c/w Vancomycin 1000mg daily, f/u w/ trough before 4th dose c/w Zosyn 4.5g Q6H c/w Azithromycin 500mg (day 2/4- as per UptoDate protocol for bacterial etiology for COPD exacerbation) Day 2 of total Abx. Legionella Ag. Negative #Cardiovascular -Afib c/w Eliquis (Head CT: no acute pathology) Started Atenolol 50mg Hold Cardizem as BP is in the low-normal range #Urology -BPH Started Tamsulosin 0.4mg monitor urine output bladder scan if output is low low threshold for Boyd? #Psychiatry -Anxiety Resumed Xanax 1mg PO QID #F/E/N -monitor electrolytes, replete as needed -regular diet -encourage PO intake for fluid hydration #DVT PPx. -c/w Eliquis Visit type - Emergency Visit Emergency Visit: Yes ED Registration Date: 04/15/18 Care time: The patient presented to the Emergency Department on the above date and was hospitalized for further evaluation of their emergent condition. - New Patient This patient is new to me today: No - Critical Care Critical Care patient: No - Discharge Referral Referred to [facility] Med P.C.: No
[2018-04-16] MEDS ORDERED: TAMSULOSIN HCL 0.4 MG CAP.ER.24H (FP) PO STA (15:03)
--- NOTE | 2018-04-16 16:46 | PN ---
Progress Note (short form) - Note Progress Note: doing much better Vital Signs Period Temp Pulse Resp BP Sys/Cleaning Pulse Ox Last 24 Hr 97.2 F-98.4 F 51-74 16-22 95-124/45-69 96-100 cor-rrr llungs decreased bs at basesa abd soft,nt ext no edema CBC, BMP 04/16/18 05:30 04/16/18 05:30 Microbiology 04/15/18 10:56 Blood - Peripheral Venous Blood Culture - Preliminary NO GROWTH OBTAINED AFTER 24 HOURS, INCUBATION TO CONTINUE FOR 4 DAYS. 04/15/18 10:50 Blood - Peripheral Venous Blood Culture - Preliminary NO GROWTH OBTAINED AFTER 24 HOURS, INCUBATION TO CONTINUE FOR 4 DAYS. 04/15/18 17:42 Urine For Antigen Detection Legionella Antigen - Final 04/15/18 17:42 Urine For Antigen Detection Streptococcus pneumoniae Antigen (M - Final 04/15/18 11:22 Urine - Urine Clean Catch Urine Culture - Final NO GROWTH OBTAINED a/p RLL pneumonia hyopoxemic hypercapneic resp failure copd mrsa contact isolation vanco/zosyn cultures legionella urinary antigen-negative can d/c zithromax Problem List - Problems (1) Respiratory failure with hypoxia and hypercapnia Code(s): J96.91 - RESPIRATORY FAILURE, UNSPECIFIED WITH HYPOXIA; J96.92 - RESPIRATORY FAILURE, UNSPECIFIED WITH HYPERCAPNIA (2) Pneumonia Code(s): J18.9 - PNEUMONIA, UNSPECIFIED ORGANISM Qualifiers: Pneumonia type: due to unspecified organism Laterality: right Lung location: lower lobe of lung Qualified Code(s): J18.1 - Lobar pneumonia, unspecified organism (3) CHF exacerbation Code(s): I50.9 - HEART FAILURE, UNSPECIFIED (4) COPD exacerbation Code(s): J44.1 - CHRONIC OBSTRUCTIVE PULMONARY DISEASE W (ACUTE) EXACERBATION (5) MRSA (methicillin resistant Staphylococcus aureus) carrier Code(s): Z22.322 - CARRIER OR SUSPECTED CARRIER OF METHICILLIN RESIS STAPH
[2018-04-16] MEDS ORDERED: PT OWN MED DRAWER 7, Y5N ONE ×2 (19:56→21:44)
[2018-04-16] MEDS: CHLORHEXIDINE GLUCONATE 4% CLEANSER FOR DECOLONIZATION TP SCH (21:49)
[2018-04-16] MEDS ORDERED: CHLORHEXIDINE GLUCONATE 4% CLEANSER FOR DECOLONIZATION TP SCH (22:00)
[2018-04-17] MEDS ORDERED: DEXTROSE 5%-WATER 100 ML IVPB ONE ×3 (01:38→17:50)
[2018-04-17] MEDS ORDERED: PIPERACILLIN/TAZOBACTAM 4.5 GM VIAL IVPB ONE ×3 (01:38→17:49)
[2018-04-17] MEDS: methylPREDNISolone NA SUCC 40 MG/1 ML VIAL IVPUSH SCH ×3 (02:00→17:54)
[2018-04-17] MEDS: PIPERACILLIN/TAZOB 4.5 GM 4.5 GM in DEXTROSE 5%-WATER 100 ML IVPB SCH ×3 (02:00→17:54)
[2018-04-17] MEDS: CHLORHEXIDINE GLUCONATE 4% CLEANSER FOR DECOLONIZATION TP SCH ×3 (02:01→22:57)
[2018-04-17 06:12] LABS: HEMATOCRIT 33.3 % (35.4-49); HEMOGLOBIN 11.1 GM/dL (11.7-16.9); MCH 29.8 pg (25.7-33.7); MCHC 33.5 g/dl (32.0-35.9); MEAN CELL VOLUME 88.9 fl (80-96); MEAN PLT VOLUME 8.2 fl (7.5-11.1); PLATELET COUNT 335 K/MM3 (134-434); RBC 3.74 M/mm3 (4.00-5.60); RDW 13.7 % (11.9-15.9); WHITE BLOOD COUNT 12.6 K/mm3 (4.0-10.0)
[2018-04-17 06:27] LABS: ANION GAP 3 MMOL/L (8-16); BLOOD UREA NITROGEN 9 mg/dL (7-18); CALCIUM 8.1 mg/dL (8.5-10.1); CHLORIDE 92 mmol/L (98-107); CO2 36 mmol/L (21-32); CREATININE 0.3 mg/dL (0.55-1.3); GLUCOSE,RANDOM 122 mg/dL (74-106); PHOSPHOROUS 3.5 mg/dL (2.5-4.9); POTASSIUM 3.9 mmol/L (3.5-5.1); SODIUM 131 mmol/L (136-145)
[2018-04-17] MEDS: ALBUTEROL SO4 2.5/IPRATROPIUM 0.5 INH SOL 3 ML VIAL.NEB. NEB SCH ×4 (07:40→20:45)
[2018-04-17] MEDS ORDERED: TAMSULOSIN HCL 0.4 MG CAP.ER.24H (FP) PO SCH (08:30)
[2018-04-17] MEDS: TAMSULOSIN HCL 0.4 MG CAP.ER.24H (FP) PO SCH (08:54)
--- NOTE | 2018-04-17 09:10 | PN ---
Progress Note (short form) - Note Progress Note: doing much better Vital Signs Period Temp Pulse Resp BP Sys/Cleaning Pulse Ox Last 24 Hr 97.2 F-97.8 F 62-78 14-21 99-146/45-77 98 cor-rrr lungs decreased bs at bases abd soft,nt ext no edema CBC, BMP 04/17/18 05:30 04/17/18 05:30 Microbiology 04/15/18 10:56 Blood - Peripheral Venous Blood Culture - Preliminary NO GROWTH OBTAINED AFTER 24 HOURS, INCUBATION TO CONTINUE FOR 4 DAYS. 04/15/18 10:50 Blood - Peripheral Venous Blood Culture - Preliminary NO GROWTH OBTAINED AFTER 24 HOURS, INCUBATION TO CONTINUE FOR 4 DAYS. 04/15/18 17:42 Urine For Antigen Detection Legionella Antigen - Final 04/15/18 17:42 Urine For Antigen Detection Streptococcus pneumoniae Antigen (M - Final 04/15/18 11:22 Urine - Urine Clean Catch Urine Culture - Final NO GROWTH OBTAINED a/p RLL pneumonia hyopoxemic hypercapneic resp failure copd mrsa contact isolation vanco/zosyn-check vanco trough f/u cultures Problem List - Problems (1) Respiratory failure with hypoxia and hypercapnia Code(s): J96.91 - RESPIRATORY FAILURE, UNSPECIFIED WITH HYPOXIA; J96.92 - RESPIRATORY FAILURE, UNSPECIFIED WITH HYPERCAPNIA (2) Pneumonia Code(s): J18.9 - PNEUMONIA, UNSPECIFIED ORGANISM Qualifiers: Pneumonia type: due to unspecified organism Laterality: right Lung location: lower lobe of lung Qualified Code(s): J18.1 - Lobar pneumonia, unspecified organism (3) CHF exacerbation Code(s): I50.9 - HEART FAILURE, UNSPECIFIED (4) COPD exacerbation Code(s): J44.1 - CHRONIC OBSTRUCTIVE PULMONARY DISEASE W (ACUTE) EXACERBATION (5) MRSA (methicillin resistant Staphylococcus aureus) carrier Code(s): Z22.322 - CARRIER OR SUSPECTED CARRIER OF METHICILLIN RESIS STAPH
[2018-04-17] MEDS: ALPRAZolam 0.25 MG TABLET PO SCH ×2 (09:18→15:36)
--- NOTE | 2018-04-17 09:18 | PN ---
Physical Exam: SUBJECTIVE: Patient seen and examined. Around midnight Pt. complained about not being able to urinate. Bladder scan performed and found 1L of fluid, Boyd placed and drained 1100ml fluid. Pt. had not complaints afterwards. OBJECTIVE: Vital Signs Period Temp Pulse Resp BP Sys/Cleaning Pulse Ox Last 24 Hr 97.2 F-97.8 F 62-78 14-21 99-146/45-88 98 GENERAL: The patient is awake, alert, lying in bed in no acute distress. EYES: sclera anicteric, conjunctiva clear. ENT: Ears normal, nares patent, moist mucous membranes. LUNGS: Decreased breath sounds b/l, no wheezes, no crackles, no accessory muscle use. HEART: soft heart beat, could not appreciate sounds. ABDOMEN: Soft, nontender, nondistended, normoactive bowel sounds, no guarding, no rebound EXTREMITIES: 1+ left radial pulse, could not appreciate dorsal pedal pulses b/l , could not appreciate right radial pulse, All extremites warm to touch, well- perfused, no edema, no tenderness. NEUROLOGICAL: Normal speech, gait not observed. PSYCH: Normal mood, normal affect. SKIN: Warm, dry, normal turgor Laboratory Results - last 24 hr 04/16/18 04/17/18 04/17/18 05:30 05:30 05:30 WBC 12.6 H RBC 3.74 L Hgb 11.1 L Hct 33.3 L MCV 88.9 MCH 29.8 MCHC 33.5 RDW 13.7 Plt Count 335 D MPV 8.2 Neutrophils % (Manual) 93.0 H Band Neutrophils % 1.0 Lymphocytes % (Manual) 3.0 L D Monocytes % (Manual) 3 L Eosinophils % (Manual) 0.0 Basophils % (Manual) 0.0 Myelocytes % (Man) 0 Promyelocytes % (Man) 0 Blast Cells % (Manual) 0 Metamyelocytes 0 Hypochromia 0 Toxic Granulation 0 Dohle Bodies 0 Platelet Estimate Normal Polychromasia 0 Poikilocytosis 0 Basophilic Stippling 0 Anisocytosis 0 Microcytosis 0 Macrocytosis 0 Spherocytes 0 Sickle Cells 0 Target Cells 0 Tear Drop Cells 0 Ovalocytes 0 Stomatocytes 0 Helmet Cells 0 [place] Bodies 0 [place] Rings 0 Jerel Cells 0 Acanthocytes (Spur) 0 Rouleaux 0 Fragmented RBCs 0 Schistocytes 0 Sodium 131 L Potassium 3.9 Chloride 92 L Carbon Dioxide 36 H Anion Gap 3 L BUN 9 Creatinine 0.3 L Creat Clearance w eGFR > 60 Random Glucose 122 H Calcium 8.1 L Phosphorus 3.5 Magnesium 2.0 Active Medications Current Medications Albuterol Sulfate (Ventolin 0.083% Nebulizer Soln -) 1 amp NEB Q8H PRN PRN Reason: SHORT OF BREATH/WHEEZING Albuterol/Ipratropium (Duoneb -) 1 amp NEB RQID [facility] Last Admin: 04/16/18 20:04 Dose: 1 amp Alprazolam (Xanax -) 1 mg PO QID [facility] Last Admin: 04/16/18 21:50 Dose: 1 mg Apixaban (Eliquis -) 5 mg PO BID [facility] Last Admin: 04/16/18 21:48 Dose: 5 mg Atenolol (Tenormin -) 50 mg PO DAILY [facility] Chlorhexidine Gluconate (Hibiclens For Decolonization -) 1 applic TP HS [facility] Last Admin: 04/16/18 21:49 Dose: 1 applic Chlorhexidine Gluconate (Hibiclens For Decolonization -) 1 applic TP HS [facility] Last Admin: 04/17/18 02:01 Dose: 1 applic Vancomycin HCl 1,000 mg/ (Dextrose) 250 mls @ 166.667 mls/hr IVPB Q12H [facility]; Protocol Last Admin: 04/16/18 22:51 Dose: 166.667 mls/hr Piperacillin Sod/Tazobactam (Sod 4.5 gm/ Dextrose) 100 mls @ 200 mls/hr IVPB Q8H-IV [facility]; Protocol Last Admin: 04/17/18 02:00 Dose: 200 mls/hr Methylprednisolone Sodium Succinate (Solu-Medrol -) 40 mg IVPUSH Q8H-IV [facility] Last Admin: 04/17/18 02:00 Dose: 40 mg Mupirocin (Bactroban Ointment (For Decolonization) -) 1 applic NS BID [facility] Stop: 04/20/18 21:59 Last Admin: 04/16/18 21:48 Dose: 1 applic Tamsulosin HCl (Flomax -) 0.4 mg PO DAILY@0830 [facility] Last Admin: 04/17/18 08:54 Dose: 0.4 mg ASSESSMENT/PLAN: A 72 y.o. M w/ PMHx. of COPD(not on home O2), A. Fib( on Eliquis), HTN and BPH, present to the ED for syncopal episode and acute respiratory distress. #Pulmonary -Pneumonia superimposed on COPD f/u Sputum Cx. CXR: shows RLL consolidation Duonebs RQID and Albuterol Neb Q8H PRN switch to 2L NC f/u CTA chest Decreased Solumedrol to 40mg Q8H c/w Vancomycin 1000mg daily, f/u w/ trough 30min before 4th dose c/w Zosyn 4.5g Q6H c/w Azithromycin 500mg (day 3/4- as per UptoDate protocol for bacterial etiology for COPD exacerbation) Day 3 of total Abx. Legionella Ag. Negative #Cardiovascular -Afib c/w Eliquis (Head CT: no acute pathology) c/w Atenolol 50mg Restart Cardizem as SBP is starting to increase to 140s #Urology -BPH c/w Tamsulosin 0.4mg monitor urine output bladder scan if output is low low threshold for Boyd? #Psychiatry -Anxiety Resumed Xanax 1mg PO QID #F/E/N -monitor electrolytes, replete as needed -regular diet -encourage PO intake for fluid hydration #DVT PPx. -c/w Eliquis
[2018-04-17] MEDS: APIXABAN 5 MG TABLET PO SCH ×2 (09:19→21:53)
[2018-04-17] MEDS: MUPIROCIN 2% TOPICAL OINTMENT FOR DECOLONIZATION NS SCH ×2 (09:19→22:56)
[2018-04-17] MEDS: ATENOLOL 50 MG TABLET (FP) PO SCH (09:19)
[2018-04-17] MEDS ORDERED: AZITHROMYCIN IVPB 500 MG in DEXTROSE 5%-WATER - 250 ML IVPB SCH (10:00)
--- NOTE | 2018-04-17 10:16 | PN ---
Progress Note (short form) - Note Progress Note: 72 y/o male found eating breakfast. Denies pain. No coughing noted. Vital Signs Period Temp Pulse Resp BP Sys/Cleaning Pulse Ox Last 24 Hr 97.2 F-97.8 F 62-78 14-21 99-146/45-88 96-98 CBC, BMP 04/17/18 05:30 04/17/18 05:30 HEENT- NL Neck- Supple Lungs- CTAB Heart- S1/ s2 Abd- Soft, NT Ext- No LE edema Active Medications Albuterol Sulfate (Ventolin 0.083% Nebulizer Soln -) 1 amp NEB Q8H PRN PRN Reason: SHORT OF BREATH/WHEEZING Albuterol/Ipratropium (Duoneb -) 1 amp NEB RQID [facility] Last Admin: 04/17/18 07:40 Dose: 1 amp Alprazolam (Xanax -) 1 mg PO QID [facility] Last Admin: 04/17/18 09:18 Dose: 1 mg Apixaban (Eliquis -) 5 mg PO BID [facility] Last Admin: 04/17/18 09:19 Dose: 5 mg Atenolol (Tenormin -) 50 mg PO DAILY [facility] Last Admin: 04/17/18 09:19 Dose: 50 mg Chlorhexidine Gluconate (Hibiclens For Decolonization -) 1 applic TP HS [facility] Last Admin: 04/16/18 21:49 Dose: 1 applic Chlorhexidine Gluconate (Hibiclens For Decolonization -) 1 applic TP HS [facility] Last Admin: 04/17/18 02:01 Dose: 1 applic Vancomycin HCl 1,000 mg/ (Dextrose) 250 mls @ 166.667 mls/hr IVPB Q12H [facility]; Protocol Last Admin: 04/16/18 22:51 Dose: 166.667 mls/hr Piperacillin Sod/Tazobactam (Sod 4.5 gm/ Dextrose) 100 mls @ 200 mls/hr IVPB Q8H-IV [facility]; Protocol Last Admin: 04/17/18 09:18 Dose: 200 mls/hr Methylprednisolone Sodium Succinate (Solu-Medrol -) 40 mg IVPUSH Q8H-IV [facility] Last Admin: 04/17/18 09:18 Dose: 40 mg Mupirocin (Bactroban Ointment (For Decolonization) -) 1 applic NS BID [facility] Stop: 04/20/18 21:59 Last Admin: 04/17/18 09:19 Dose: 1 applic Tamsulosin HCl (Flomax -) 0.4 mg PO DAILY@0830 [facility] Last Admin: 04/17/18 08:54 Dose: 0.4 mg #Pneumonia Cont IV antibiotics/ steroids WBC now 12.6 Cultures neg # COPD ON O2 via nasal cannula Sat 96-98 Duoneb/ Albuterol PRN #Afib Eliquis 5 mg BID Cardio consult appreciated Problem List - Problems (1) Pneumonia Code(s): J18.9 - PNEUMONIA, UNSPECIFIED ORGANISM Qualifiers: Pneumonia type: due to unspecified organism Laterality: right Lung location: lower lobe of lung Qualified Code(s): J18.1 - Lobar pneumonia, unspecified organism (2) Respiratory failure with hypoxia and hypercapnia Code(s): J96.91 - RESPIRATORY FAILURE, UNSPECIFIED WITH HYPOXIA; J96.92 - RESPIRATORY FAILURE, UNSPECIFIED WITH HYPERCAPNIA (3) CHF exacerbation Code(s): I50.9 - HEART FAILURE, UNSPECIFIED (4) COPD exacerbation Code(s): J44.1 - CHRONIC OBSTRUCTIVE PULMONARY DISEASE W (ACUTE) EXACERBATION (5) Atrial fibrillation Code(s): I48.91 - UNSPECIFIED ATRIAL FIBRILLATION Qualifiers: Atrial fibrillation type: paroxysmal Qualified Code(s): I48.0 - Paroxysmal atrial fibrillation (6) Coronary artery disease Code(s): I25.10 - ATHSCL HEART DISEASE OF [place] CORONARY ARTERY W/O ANG PCTRS Qualifiers: Coronary Disease-Associated Artery/Lesion type: [place] artery [place] vs. transplanted heart: [place] heart Associated angina: without angina Qualified Code(s): I25.10 - Atherosclerotic heart disease of [place] coronary artery without angina pectoris (7) HTN (hypertension) Code(s): I10 - ESSENTIAL (PRIMARY) HYPERTENSION Qualifiers: Hypertension type: essential hypertension Qualified Code(s): I10 - Essential (primary) hypertension
--- NOTE | 2018-04-17 11:14 | PN ---
Progress Note (short form) - Note Progress Note: s: less sob today, no cp palps dizzy o: Vital Signs Period Temp Pulse Resp BP Sys/Cleaning Pulse Ox Last 24 Hr 97.2 F-97.8 F 62-78 14-21 99-146/45-88 96-98 nad, no jvd rrr s1s2 no mrg coarse bs bl, nl eff, aao3 no le e/c/c abd nt nd pos bs no jaundice diaphoresis Current Medications Generic Name Dose Route Start Last Admin Trade Name Freq PRN Reason Stop Dose Admin Albuterol Sulfate 1 amp 04/16/18 18:03 Ventolin 0.083% Nebulizer Soln - NEB Q8H PRN SHORT OF BREATH/WHEEZING Albuterol/Ipratropium 1 amp 04/16/18 20:00 04/17/18 07:40 Duoneb - NEB 1 amp RQID [facility] Administration Alprazolam 1 mg 04/16/18 14:00 04/17/18 09:18 Xanax - PO 1 mg QID [facility] Administration Apixaban 5 mg 04/16/18 22:00 04/17/18 09:19 Eliquis - PO 5 mg BID [facility] Administration Atenolol 50 mg 04/17/18 10:00 04/17/18 09:19 Tenormin - PO 50 mg DAILY [facility] Administration Chlorhexidine Gluconate 1 applic 04/16/18 22:00 04/16/18 21:49 Hibiclens For Decolonization - TP 1 applic HS [facility] Administration Chlorhexidine Gluconate 1 applic 04/16/18 22:00 04/17/18 02:01 Hibiclens For Decolonization - TP 1 applic HS [facility] Administration Vancomycin HCl 1,000 mg/ 250 mls @ 166.667 mls/hr 04/16/18 23:00 04/16/18 22: 51 Dextrose IVPB 166.667 mls/hr Q12H [facility] Administration Protocol Piperacillin Sod/Tazobactam 100 mls @ 200 mls/hr 04/17/18 02:00 04/17/18 09: 18 Sod 4.5 gm/ Dextrose IVPB 200 mls/hr Q8H-IV [facility] Administration Protocol Methylprednisolone Sodium Succinate 40 mg 04/16/18 14:58 04/17/18 09:18 Solu-Medrol - IVPUSH 40 mg Q8H-IV [facility] Administration Mupirocin 1 applic 04/16/18 22:00 04/17/18 09:19 Bactroban Ointment (For Decolonization) - NS 04/20/18 21:59 1 applic BID [facility] Administration Tamsulosin HCl 0.4 mg 04/16/18 13:55 04/17/18 08:54 Flomax - PO 0.4 mg DAILY@0830 [facility] Administration CBC, BMP 04/17/18 05:30 04/17/18 05:30 tele: sr ecg: sr,nl intervals, no ischemic changes cxr: right pna echo 02/2018: nl lv/rv, mild tr, mod phtn a/p: 72 m hx copd, afib, htn, cad here s/p fall. fall: -mechanical, no signs of cardiac etiology pna: -cont abx, supplemental o2 afib: -in sr now -was on atenolol 50 qd and dilt 120 qd but now bp low likely from sepsis. held these meds at first, now atenolol resumed, watch bp. -cont home eliquis htn: -stable cad: -unclear details, pt said he had cath at [facility] about 10 yrs ago and was told he had narrowing in artery but that due to its location it could not be fixed. he says he was started on plavix and told to continue. Seems that cad is no longer and indication for him to take plavix now that he is on eliquis. Would consider dc plavix if no other indication. can dc tele
[2018-04-17] MEDS: VANCOMYCIN 1,000 MG in DEXTROSE 5%-WATER - 250 ML IVPB SCH (11:36)
--- NOTE | 2018-04-17 12:05 | PN ---
Teaching Attending Note Name of Resident: Thien Lin ATTENDING PHYSICIAN STATEMENT I saw and evaluated the patient. I reviewed the resident's note and discussed the case with the resident. I agree with the resident's findings and plan as documented. SUBJECTIVE: Patient seen and examined in the ICU. Breathing much improved today. Currently off NIPPV and on NC O2. Still with some congested cough, but improving. OBJECTIVE: Intake & Output 04/14/18 04/15/18 04/16/18 04/17/18 23:59 23:59 23:59 23:59 Intake Total 350 1750 550 Output Total 0 3500 Balance 350 1750 -2950 Weight 138 lb 10.732 oz 138 lb 128 lb 1 oz Last Vital Signs Temp Pulse Resp BP Pulse Ox 97.8 F 74 16 137/88 96 04/17/18 06:00 04/17/18 08:00 04/17/18 08:00 04/17/18 08:00 04/17/18 08:20 Active Medications Albuterol Sulfate (Ventolin 0.083% Nebulizer Soln -) 1 amp NEB Q8H PRN PRN Reason: SHORT OF BREATH/WHEEZING Albuterol/Ipratropium (Duoneb -) 1 amp NEB RQID [facility] Last Admin: 04/17/18 07:40 Dose: 1 amp Alprazolam (Xanax -) 1 mg PO QID [facility] Last Admin: 04/17/18 09:18 Dose: 1 mg Apixaban (Eliquis -) 5 mg PO BID [facility] Last Admin: 04/17/18 09:19 Dose: 5 mg Atenolol (Tenormin -) 50 mg PO DAILY [facility] Last Admin: 04/17/18 09:19 Dose: 50 mg Chlorhexidine Gluconate (Hibiclens For Decolonization -) 1 applic TP HS [facility] Last Admin: 04/16/18 21:49 Dose: 1 applic Chlorhexidine Gluconate (Hibiclens For Decolonization -) 1 applic TP HS [facility] Last Admin: 04/17/18 02:01 Dose: 1 applic Vancomycin HCl 1,000 mg/ (Dextrose) 250 mls @ 166.667 mls/hr IVPB Q12H [facility]; Protocol Last Admin: 04/17/18 11:36 Dose: 166.667 mls/hr Piperacillin Sod/Tazobactam (Sod 4.5 gm/ Dextrose) 100 mls @ 200 mls/hr IVPB Q8H-IV [facility]; Protocol Last Admin: 04/17/18 09:18 Dose: 200 mls/hr Methylprednisolone Sodium Succinate (Solu-Medrol -) 40 mg IVPUSH Q8H-IV [facility] Last Admin: 04/17/18 09:18 Dose: 40 mg Mupirocin (Bactroban Ointment (For Decolonization) -) 1 applic NS BID [facility] Stop: 04/20/18 21:59 Last Admin: 04/17/18 09:19 Dose: 1 applic Tamsulosin HCl (Flomax -) 0.4 mg PO DAILY@0830 [facility] Last Admin: 04/17/18 08:54 Dose: 0.4 mg Gen: mildly tachypneic at rest Heart: RRR Lung: distant breath sounds, few scattered rhonchi, no wheeze Abd: soft, nontender Ext: no edema Laboratory Results - last 24 hr 04/17/18 04/17/18 04/17/18 05:30 05:30 09:55 WBC 12.6 H RBC 3.74 L Hgb 11.1 L Hct 33.3 L MCV 88.9 MCH 29.8 MCHC 33.5 RDW 13.7 Plt Count 335 D MPV 8.2 Sodium 131 L Potassium 3.9 Chloride 92 L Carbon Dioxide 36 H Anion Gap 3 L BUN 9 Creatinine 0.3 L Creat Clearance w eGFR > 60 Random Glucose 122 H Calcium 8.1 L Phosphorus 3.5 Magnesium 2.0 Vancomycin Pre-Dose 8.9 L ASSESSMENT AND PLAN: Acute on Chronic Hypoxic and Hypercapneic Respiratory Failure RLL Pneumonia Sepsis Acute COPD Exacerbation Atrial Fibrillation HTN BPH - continue antibiotics per ID - Medrol taper - inhaled bronchodilators standing and PRN - O2 to keep SpO2 >88% - NIPPV as needed to assist in work of breathing - rate control - continue anticoagulation - Floor Dr Turner
[2018-04-17] MEDS: ALPRAZolam 2 MG TABLET PO SCH ×3 (14:45→21:53)
[2018-04-17] MEDS ORDERED: PT OWN MED DRAWER 7, Y5N ONE (23:56)
[2018-04-18] MEDS: VANCOMYCIN 1,000 MG in DEXTROSE 5%-WATER - 250 ML IVPB SCH ×3 (00:08→22:33)
[2018-04-18] MEDS ORDERED: PIPERACILLIN/TAZOBACTAM 4.5 GM VIAL IVPB ONE ×2 (01:52→10:13)
[2018-04-18] MEDS ORDERED: DEXTROSE 5%-WATER 100 ML IVPB ONE ×2 (01:52→10:13)
[2018-04-18] MEDS: methylPREDNISolone NA SUCC 40 MG/1 ML VIAL IVPUSH SCH ×3 (02:06→17:15)
[2018-04-18] MEDS: PIPERACILLIN/TAZOB 4.5 GM 4.5 GM in DEXTROSE 5%-WATER 100 ML IVPB SCH ×2 (02:06→10:32)
[2018-04-18] MEDS: ALBUTEROL SO4 2.5/IPRATROPIUM 0.5 INH SOL 3 ML VIAL.NEB. NEB SCH ×4 (07:30→20:39)
[2018-04-18] MEDS: TAMSULOSIN HCL 0.4 MG CAP.ER.24H (FP) PO SCH (08:33)
[2018-04-18] MEDS: MUPIROCIN 2% TOPICAL OINTMENT FOR DECOLONIZATION NS SCH ×2 (10:29→21:03)
[2018-04-18] MEDS: APIXABAN 5 MG TABLET PO SCH ×2 (10:31→21:05)
[2018-04-18] MEDS: ATENOLOL 50 MG TABLET (FP) PO SCH (10:31)
[2018-04-18] MEDS: ALPRAZolam 2 MG TABLET PO SCH ×4 (10:31→22:31)
[2018-04-18] MEDS ORDERED: PT OWN MED DRAWER 7, Y5N ONE ×3 (11:28→20:47)
--- NOTE | 2018-04-18 12:13 | PN ---
Progress Note (short form) - Note Progress Note: doing much better alert Vital Signs Period Temp Pulse Resp BP Sys/Cleaning Pulse Ox Last 24 Hr 97.8 F-98.1 F 71-83 14-20 105-121/41-61 98 cor-rrr lungs decreased bs at bases abd soft,nt ext no edema CBC, BMP 04/17/18 05:30 04/17/18 05:30 Microbiology 04/16/18 16:35 Sputum - Expectorated Gram Stain - Final 04/16/18 16:35 Sputum - Expectorated Sputum Culture - Preliminary Presumptive Mrsa (Pbp2a Pos) 04/15/18 10:56 Blood - Peripheral Venous Blood Culture - Preliminary NO GROWTH OBTAINED AFTER 72 HOURS, INCUBATION TO CONTINUE FOR 2 DAYS. 04/15/18 10:50 Blood - Peripheral Venous Blood Culture - Preliminary NO GROWTH OBTAINED AFTER 72 HOURS, INCUBATION TO CONTINUE FOR 2 DAYS. 04/15/18 17:42 Urine For Antigen Detection Legionella Antigen - Final 04/15/18 17:42 Urine For Antigen Detection Streptococcus pneumoniae Antigen (M - Final 04/15/18 11:22 Urine - Urine Clean Catch Urine Culture - Final NO GROWTH OBTAINED a/p RLL pneumonia-MRSA hyopoxemic hypercapneic resp failure copd mrsa contact isolation d/c zosyn continue vancomycin repeat vanco trough before increasing dose Problem List - Problems (1) Respiratory failure with hypoxia and hypercapnia Code(s): J96.91 - RESPIRATORY FAILURE, UNSPECIFIED WITH HYPOXIA; J96.92 - RESPIRATORY FAILURE, UNSPECIFIED WITH HYPERCAPNIA (2) Pneumonia Code(s): J18.9 - PNEUMONIA, UNSPECIFIED ORGANISM Qualifiers: Pneumonia type: due to unspecified organism Laterality: right Lung location: lower lobe of lung Qualified Code(s): J18.1 - Lobar pneumonia, unspecified organism (3) CHF exacerbation Code(s): I50.9 - HEART FAILURE, UNSPECIFIED (4) COPD exacerbation Code(s): J44.1 - CHRONIC OBSTRUCTIVE PULMONARY DISEASE W (ACUTE) EXACERBATION (5) MRSA (methicillin resistant Staphylococcus aureus) carrier Code(s): Z22.322 - CARRIER OR SUSPECTED CARRIER OF METHICILLIN RESIS STAPH
--- NOTE | 2018-04-18 12:26 | PN ---
Progress Note, Physician History of Present Illness: PULMONARY ALERT,OOB-CHAIR,FEELING BETTER,+ COUGH - Current Medication List Current Medications: Active Medications Albuterol Sulfate (Ventolin 0.083% Nebulizer Soln -) 1 amp NEB Q8H PRN PRN Reason: SHORT OF BREATH/WHEEZING Albuterol/Ipratropium (Duoneb -) 1 amp NEB RQID [facility] Last Admin: 04/18/18 11:00 Dose: 1 amp Alprazolam (Xanax -) 1 mg PO QID [facility] Last Admin: 04/18/18 10:31 Dose: 1 mg Apixaban (Eliquis -) 5 mg PO BID [facility] Last Admin: 04/18/18 10:31 Dose: 5 mg Atenolol (Tenormin -) 50 mg PO DAILY [facility] Last Admin: 04/18/18 10:31 Dose: 50 mg Chlorhexidine Gluconate (Hibiclens For Decolonization -) 1 applic TP HS [facility] Last Admin: 04/17/18 22:56 Dose: Not Given Chlorhexidine Gluconate (Hibiclens For Decolonization -) 1 applic TP HS [facility] Last Admin: 04/17/18 22:57 Dose: Not Given Vancomycin HCl 1,000 mg/ (Dextrose) 250 mls @ 166.667 mls/hr IVPB Q12H [facility]; Protocol Last Admin: 04/18/18 12:16 Dose: 166.667 mls/hr Methylprednisolone Sodium Succinate (Solu-Medrol -) 40 mg IVPUSH Q8H-IV [facility] Last Admin: 04/18/18 10:31 Dose: 40 mg Mupirocin (Bactroban Ointment (For Decolonization) -) 1 applic NS BID [facility] Stop: 04/20/18 21:59 Last Admin: 04/18/18 10:29 Dose: Not Given Tamsulosin HCl (Flomax -) 0.4 mg PO DAILY@0830 [facility] Last Admin: 04/18/18 08:33 Dose: 0.4 mg - Objective Vital Signs: Vital Signs Temperature 98 F 04/18/18 10:00 Pulse Rate 83 04/18/18 10:00 Respiratory Rate 20 04/18/18 10:00 Blood Pressure 119/58 L 04/18/18 10:00 O2 Sat by Pulse Oximetry (%) 98 04/17/18 21:00 Constitutional: Yes: Well Nourished, Calm Eyes: Yes: WNL HENT: Yes: WNL Neck: Yes: WNL Cardiovascular: Yes: Pulse Irregular, S1, S2 Respiratory: Yes: Rales (FEW CRACKLES R BASE) Gastrointestinal: Yes: Normal Bowel Sounds, Soft Extremities: Yes: WNL Edema: No Labs: CBC, BMP 04/17/18 05:30 Problem List - Problems (1) Acute on chronic respiratory failure with hypoxia and hypercapnia Code(s): J96.21 - ACUTE AND CHRONIC RESPIRATORY FAILURE WITH HYPOXIA; J96.22 - ACUTE AND CHRONIC RESPIRATORY FAILURE WITH HYPERCAPNIA Assessment/Plan ASSESSMENT AND PLAN: Acute on Chronic Hypoxic and Hypercapneic Respiratory Failure improving RLL Pneumonia Sepsis resolved Acute COPD Exacerbation Atrial Fibrillation HTN BPH - continue antibiotics per ID - medrol - inhaled bronchodilators standing and PRN - O2 to keep SpO2 >88% - BiPAP as needed to assist in work of breathing - rate control - continue anticoagulation DR COREAS
--- NOTE | 2018-04-18 14:41 | PN ---
Progress Note (short form) - Note Progress Note: sitting in chair / comfortable Harsh cough / productive cough no dyspnea Vital Signs Period Temp Pulse Resp BP Sys/Cleaning Pulse Ox Last 24 Hr 97.8 F-98.1 F 71-83 14-20 107-121/48-61 98-99 thin frail neck suppl e heart s1/S2 irreg lung decresed BS / ronchi left base expiratory wheeze abd soft non tneder barba in place ext no edema CBC, BMP 04/17/18 05:30 04/17/18 05:30 Microbiology 04/16/18 16:35 Sputum - Expectorated Gram Stain - Final 04/16/18 16:35 Sputum - Expectorated Sputum Culture - Preliminary Presumptive Mrsa (Pbp2a Pos) 04/15/18 10:56 Blood - Peripheral Venous Blood Culture - Preliminary NO GROWTH OBTAINED AFTER 72 HOURS, INCUBATION TO CONTINUE FOR 2 DAYS. 04/15/18 10:50 Blood - Peripheral Venous Blood Culture - Preliminary NO GROWTH OBTAINED AFTER 72 HOURS, INCUBATION TO CONTINUE FOR 2 DAYS. 04/15/18 17:42 Urine For Antigen Detection Legionella Antigen - Final 04/15/18 17:42 Urine For Antigen Detection Streptococcus pneumoniae Antigen (M - Final 04/15/18 11:22 Urine - Urine Clean Catch Urine Culture - Final NO GROWTH OBTAINED Active Medications Albuterol Sulfate (Ventolin 0.083% Nebulizer Soln -) 1 amp NEB Q8H PRN PRN Reason: SHORT OF BREATH/WHEEZING Albuterol/Ipratropium (Duoneb -) [address] [facility] Last Admin: 04/18/18 11:00 Dose: 1 amp Alprazolam (Xanax -) [address] [facility] Last Admin: 04/18/18 13:58 Dose: 1 mg Apixaban (Eliquis -) [address] [facility] Last Admin: 04/18/18 10:31 Dose: 5 mg Atenolol (Tenormin -) [address] [facility] Last Admin: 04/18/18 10:31 Dose: 50 mg Chlorhexidine Gluconate (Hibiclens For Decolonization -) 1 applic TP [facility] Last Admin: 04/17/18 22:56 Dose: Not Given Chlorhexidine Gluconate (Hibiclens For Decolonization -) 1 applic TP [facility] Last Admin: 04/17/18 22:57 Dose: Not Given Vancomycin HCl 1,000 mg/ (Dextrose) 250 mls @ 166.667 mls/hr IVPB Q12H [facility]; Protocol Last Admin: 04/18/18 12:16 Dose: 166.667 mls/hr Methylprednisolone Sodium Succinate (Solu-Medrol -) 40 mg IVPUSH Q8H-IV [facility] Stop: 04/19/18 02:00 Last Admin: 04/18/18 10:31 Dose: 40 mg Methylprednisolone Sodium Succinate (Solu-Medrol -) [address] [facility] Mupirocin (Bactroban Ointment (For Decolonization) -) [address] [facility] Stop: 04/20/18 21:59 Last Admin: 04/18/18 10:29 Dose: Not Given Tamsulosin HCl (Flomax -) 0.4 mg PO DAILY@0830 [facility] Last Admin: 04/18/18 08:33 Dose: 0.4 mg # PNA in setting of COPD RLL pneumonia s/p acute on chronic hypoxic repiratory failure s/p sepsis required ICU NIPPV PRN keep O2 > 88% continue ABX / nebulizer / IV steroids appreciate Pulm follow up # Atrial Fibrillation rate controlled -atenolol on NOAC - to continue # HTN trend Bp on atenolol # BPH required barba on flomax opinion Problem List - Problems (1) Pneumonia Code(s): J18.9 - PNEUMONIA, UNSPECIFIED ORGANISM Qualifiers: Pneumonia type: due to unspecified organism Laterality: right Lung location: lower lobe of lung Qualified Code(s): J18.1 - Lobar pneumonia, unspecified organism (2) Respiratory failure with hypoxia and hypercapnia Code(s): J96.91 - RESPIRATORY FAILURE, UNSPECIFIED WITH HYPOXIA; J96.92 - RESPIRATORY FAILURE, UNSPECIFIED WITH HYPERCAPNIA (3) CHF exacerbation Code(s): I50.9 - HEART FAILURE, UNSPECIFIED (4) COPD exacerbation Code(s): J44.1 - CHRONIC OBSTRUCTIVE PULMONARY DISEASE W (ACUTE) EXACERBATION (5) Atrial fibrillation Code(s): I48.91 - UNSPECIFIED ATRIAL FIBRILLATION Qualifiers: Atrial fibrillation type: paroxysmal Qualified Code(s): I48.0 - Paroxysmal atrial fibrillation (6) Coronary artery disease Code(s): I25.10 - ATHSCL HEART DISEASE OF [place] CORONARY ARTERY W/O ANG PCTRS Qualifiers: Coronary Disease-Associated Artery/Lesion type: [place] artery [place] vs. transplanted heart: [place] heart Associated angina: without angina Qualified Code(s): I25.10 - Atherosclerotic heart disease of [place] coronary artery without angina pectoris (7) HTN (hypertension) Code(s): I10 - ESSENTIAL (PRIMARY) HYPERTENSION Qualifiers: Hypertension type: essential hypertension Qualified Code(s): I10 - Essential (primary) hypertension
[2018-04-18] MEDS: CHLORHEXIDINE GLUCONATE 4% CLEANSER FOR DECOLONIZATION TP SCH ×2 (21:03→21:04)
[2018-04-19] MEDS: methylPREDNISolone NA SUCC 40 MG/1 ML VIAL IVPUSH SCH ×3 (02:50→21:48)
[2018-04-19] MEDS: ALBUTEROL SO4 2.5/IPRATROPIUM 0.5 INH SOL 3 ML VIAL.NEB. NEB SCH ×4 (07:35→19:55)
[2018-04-19 08:01] LABS: BASO % 0.1 % (0-2.0); HEMATOCRIT 32.9 % (35.4-49); HEMOGLOBIN 10.8 GM/dL (11.7-16.9); LYMPH % 3.2 % (8-40); MCH 29.6 pg (25.7-33.7); MCHC 32.8 g/dl (32.0-35.9); MEAN CELL VOLUME 90.2 fl (80-96); MEAN PLT VOLUME 8.4 fl (7.5-11.1); MONO % 5.4 % (3.8-10.2); NEUT % 91.3 % (42.8-82.8); PLATELET COUNT 343 K/MM3 (134-434); RBC 3.65 M/mm3 (4.00-5.60); RDW 14.1 % (11.9-15.9); WHITE BLOOD COUNT 13.1 K/mm3 (4.0-10.0)
[2018-04-19 08:35] LABS: ANION GAP 8 MMOL/L (8-16); BLOOD UREA NITROGEN 8 mg/dL (7-18); CALCIUM 8.3 mg/dL (8.5-10.1); CHLORIDE 96 mmol/L (98-107); CO2 34 mmol/L (21-32); CREATININE 0.3 mg/dL (0.55-1.3); GLUCOSE,RANDOM 97 mg/dL (74-106); POTASSIUM 4.1 mmol/L (3.5-5.1); SODIUM 139 mmol/L (136-145)
[2018-04-19] MEDS: TAMSULOSIN HCL 0.4 MG CAP.ER.24H (FP) PO SCH (08:42)
[2018-04-19] MEDS: VANCOMYCIN 1,000 MG in DEXTROSE 5%-WATER - 250 ML IVPB SCH (10:45)
[2018-04-19] MEDS: APIXABAN 5 MG TABLET PO SCH ×2 (10:45→21:48)
[2018-04-19] MEDS: MUPIROCIN 2% TOPICAL OINTMENT FOR DECOLONIZATION NS SCH ×2 (10:45→21:46)
[2018-04-19] MEDS: ALPRAZolam 2 MG TABLET PO SCH ×4 (10:46→21:48)
[2018-04-19] MEDS: ATENOLOL 50 MG TABLET (FP) PO SCH (10:46)
[2018-04-19] MEDS ORDERED: VANCOMYCIN 1,250 MG in DEXTROSE 5%-WATER - 250 ML IVPB SCH (10:58)
--- NOTE | 2018-04-19 10:58 | PN ---
Progress Note (short form) - Note Progress Note: doing much better alert Vital Signs Period Temp Pulse Resp BP Sys/Cleaning Pulse Ox Last 24 Hr 97.6 F-98 F 58-77 18-20 100-136/54-80 96 cor-rrr lungs decreased bs at bses abd soft,nt ext no edema +barba Laboratory Tests 04/17/18 04/19/18 09:55 09:45 Vancomycin Pre-Dose 8.9 L 10.1 L CBC, BMP 04/19/18 06:30 04/19/18 06:30 Microbiology 04/16/18 16:35 Sputum - Expectorated Gram Stain - Final 04/16/18 16:35 Sputum - Expectorated Sputum Culture - Preliminary Presumptive Mrsa (Pbp2a Pos) 04/15/18 10:56 Blood - Peripheral Venous Blood Culture - Preliminary NO GROWTH OBTAINED AFTER 72 HOURS, INCUBATION TO CONTINUE FOR 2 DAYS. 04/15/18 10:50 Blood - Peripheral Venous Blood Culture - Preliminary NO GROWTH OBTAINED AFTER 72 HOURS, INCUBATION TO CONTINUE FOR 2 DAYS. 04/15/18 17:42 Urine For Antigen Detection Legionella Antigen - Final 04/15/18 17:42 Urine For Antigen Detection Streptococcus pneumoniae Antigen (M - Final 04/15/18 11:22 Urine - Urine Clean Catch Urine Culture - Final NO GROWTH OBTAINED Current Medications Albuterol Sulfate (Ventolin 0.083% Nebulizer Soln -) 1 amp NEB Q8H PRN PRN Reason: SHORT OF BREATH/WHEEZING Albuterol/Ipratropium (Duoneb -) 1 amp NEB RQID [facility] Last Admin: 04/19/18 07:35 Dose: 1 amp Alprazolam (Xanax -) 1 mg PO QID [facility] Last Admin: 04/19/18 10:46 Dose: 1 mg Apixaban (Eliquis -) 5 mg PO BID [facility] Last Admin: 04/19/18 10:45 Dose: 5 mg Atenolol (Tenormin -) 50 mg PO DAILY [facility] Last Admin: 04/19/18 10:46 Dose: 50 mg Chlorhexidine Gluconate (Hibiclens For Decolonization -) 1 applic TP [facility] Last Admin: 04/18/18 21:03 Dose: Not Given Chlorhexidine Gluconate (Hibiclens For Decolonization -) 1 applic TP [facility] Last Admin: 04/18/18 21:04 Dose: Not Given Vancomycin HCl 1,000 mg/ (Dextrose) 250 mls @ 166.667 mls/hr IVPB Q12H [facility]; Protocol Last Admin: 04/19/18 10:45 Dose: 166.667 mls/hr Methylprednisolone Sodium Succinate (Solu-Medrol -) 40 mg IVPUSH BID [facility] Last Admin: 04/19/18 10:46 Dose: 40 mg Mupirocin (Bactroban Ointment (For Decolonization) -) 1 applic NS BID [facility] Stop: 04/20/18 21:59 Last Admin: 04/19/18 10:45 Dose: Not Given Tamsulosin HCl (Flomax -) 0.4 mg PO DAILY@0830 [facility] Last Admin: 04/19/18 08:42 Dose: 0.4 mg a/p RLL pneumonia-MRSA hyopoxemic hypercapneic resp failure copd mrsa day #4 antibiotics contact isolation increase vancomycin to 1250 bid suspect leukocytosis partially due to steroids Problem List - Problems (1) Respiratory failure with hypoxia and hypercapnia Code(s): J96.91 - RESPIRATORY FAILURE, UNSPECIFIED WITH HYPOXIA; J96.92 - RESPIRATORY FAILURE, UNSPECIFIED WITH HYPERCAPNIA (2) Pneumonia Code(s): J18.9 - PNEUMONIA, UNSPECIFIED ORGANISM Qualifiers: Pneumonia type: due to unspecified organism Laterality: right Lung location: lower lobe of lung Qualified Code(s): J18.1 - Lobar pneumonia, unspecified organism (3) CHF exacerbation Code(s): I50.9 - HEART FAILURE, UNSPECIFIED (4) COPD exacerbation Code(s): J44.1 - CHRONIC OBSTRUCTIVE PULMONARY DISEASE W (ACUTE) EXACERBATION (5) MRSA (methicillin resistant Staphylococcus aureus) carrier Code(s): Z22.322 - CARRIER OR SUSPECTED CARRIER OF METHICILLIN RESIS STAPH
[2018-04-19 12:13] LABS: PLATELET ESTIMATE ADEQUATE
--- NOTE | 2018-04-19 13:49 | PN ---
Progress Note, Physician History of Present Illness: pulmonary alert,no distress,-cp,-sob - Current Medication List Current Medications: Active Medications Albuterol Sulfate (Ventolin 0.083% Nebulizer Soln -) 1 amp NEB Q8H PRN PRN Reason: SHORT OF BREATH/WHEEZING Albuterol/Ipratropium (Duoneb -) 1 amp NEB RQID [facility] Last Admin: 04/19/18 11:34 Dose: 1 amp Alprazolam (Xanax -) 1 mg PO QID [facility] Last Admin: 04/19/18 10:46 Dose: 1 mg Apixaban (Eliquis -) 5 mg PO BID [facility] Last Admin: 04/19/18 10:45 Dose: 5 mg Atenolol (Tenormin -) 50 mg PO DAILY [facility] Last Admin: 04/19/18 10:46 Dose: 50 mg Chlorhexidine Gluconate (Hibiclens For Decolonization -) 1 applic TP [facility] Last Admin: 04/18/18 21:03 Dose: Not Given Chlorhexidine Gluconate (Hibiclens For Decolonization -) 1 applic TP [facility] Last Admin: 04/18/18 21:04 Dose: Not Given Vancomycin HCl 1,250 mg/ (Dextrose) 250 mls @ 166.667 mls/hr IVPB BID [facility]; Protocol Methylprednisolone Sodium Succinate (Solu-Medrol -) 40 mg IVPUSH BID [facility] Last Admin: 04/19/18 10:46 Dose: 40 mg Mupirocin (Bactroban Ointment (For Decolonization) -) 1 applic NS BID [facility] Stop: 04/20/18 21:59 Last Admin: 04/19/18 10:45 Dose: Not Given Tamsulosin HCl (Flomax -) 0.4 mg PO DAILY@0830 [facility] Last Admin: 04/19/18 08:42 Dose: 0.4 mg - Objective Vital Signs: Vital Signs Temperature 98 F 04/19/18 10:00 Pulse Rate 73 04/19/18 10:00 Respiratory Rate 20 04/19/18 10:00 Blood Pressure 121/62 04/19/18 10:00 O2 Sat by Pulse Oximetry (%) 96 04/18/18 21:00 Constitutional: Yes: Well Nourished, Calm Eyes: Yes: WNL HENT: Yes: WNL Neck: Yes: Lymphadenopathy Cardiovascular: Yes: Pulse Irregular, S1, S2 Respiratory: Yes: Diminished Gastrointestinal: Yes: Normal Bowel Sounds, Soft Extremities: Yes: WNL Edema: No Labs: CBC, BMP 04/19/18 06:30 04/19/18 06:30 INR, PTT INR 1.86 (0.83-1.09) H 04/16/18 05:30 Problem List - Problems (1) Acute on chronic respiratory failure with hypoxia and hypercapnia Code(s): J96.21 - ACUTE AND CHRONIC RESPIRATORY FAILURE WITH HYPOXIA; J96.22 - ACUTE AND CHRONIC RESPIRATORY FAILURE WITH HYPERCAPNIA Assessment/Plan ASSESSMENT AND PLAN: Acute on Chronic Hypoxic and Hypercapneic Respiratory Failure improving RLL Pneumonia Sepsis resolved Acute COPD Exacerbation Atrial Fibrillation HTN BPH - continue antibiotics per ID - medrol taper - inhaled bronchodilators standing and PRN - O2 to keep SpO2 >88% - BiPAP as needed to assist in work of breathing - rate control - continue anticoagulation DR COREAS
[2018-04-19] MEDS: CHLORHEXIDINE GLUCONATE 4% CLEANSER FOR DECOLONIZATION TP SCH (21:46)
[2018-04-19] MEDS: VANCOMYCIN 1,250 MG in DEXTROSE 5%-WATER - 250 ML IVPB SCH (22:28)
[2018-04-20] MEDS: ALBUTEROL SO4 2.5/IPRATROPIUM 0.5 INH SOL 3 ML VIAL.NEB. NEB SCH ×4 (07:31→20:53)
[2018-04-20 08:08] LABS: BASO % 0.1 % (0-2.0); HEMATOCRIT 34.6 % (35.4-49); HEMOGLOBIN 11.3 GM/dL (11.7-16.9); LYMPH % 3.6 % (8-40); MCH 29.4 pg (25.7-33.7); MCHC 32.7 g/dl (32.0-35.9); MEAN CELL VOLUME 89.8 fl (80-96); MEAN PLT VOLUME 8.1 fl (7.5-11.1); MONO % 4.6 % (3.8-10.2); NEUT % 91.7 % (42.8-82.8); PLATELET COUNT 418 K/MM3 (134-434); RBC 3.85 M/mm3 (4.00-5.60); RDW 13.9 % (11.9-15.9); WHITE BLOOD COUNT 18.5 K/mm3 (4.0-10.0)
[2018-04-20 08:54] LABS: ANION GAP 5 MMOL/L (8-16); BLOOD UREA NITROGEN 8 mg/dL (7-18); CALCIUM 8.2 mg/dL (8.5-10.1); CHLORIDE 97 mmol/L (98-107); CO2 34 mmol/L (21-32); CREATININE 0.3 mg/dL (0.55-1.3); GLUCOSE,RANDOM 81 mg/dL (74-106); POTASSIUM 4.3 mmol/L (3.5-5.1); SODIUM 135 mmol/L (136-145)
[2018-04-20] MEDS: APIXABAN 5 MG TABLET PO SCH ×2 (10:19→22:21)
[2018-04-20] MEDS: MUPIROCIN 2% TOPICAL OINTMENT FOR DECOLONIZATION NS SCH (10:19)
[2018-04-20] MEDS: TAMSULOSIN HCL 0.4 MG CAP.ER.24H (FP) PO SCH (10:19)
[2018-04-20] MEDS: ATENOLOL 50 MG TABLET (FP) PO SCH (10:19)
[2018-04-20] MEDS: VANCOMYCIN 1,250 MG in DEXTROSE 5%-WATER - 250 ML IVPB SCH ×2 (10:20→22:22)
[2018-04-20] MEDS: ALPRAZolam 2 MG TABLET PO SCH ×4 (10:20→22:21)
[2018-04-20] MEDS: methylPREDNISolone NA SUCC 40 MG/1 ML VIAL IVPUSH SCH ×2 (10:20→22:22)
--- NOTE | 2018-04-20 10:26 | PN ---
Progress Note (short form) - Note Progress Note: PULMONARY Breathing much improved. +nonproductive cough. No fevers or chills. Vital Signs Period Temp Pulse Resp BP Sys/Cleaning Pulse Ox Last 24 Hr 97.8 F-98.2 F 54-75 18-20 105-133/55-80 94 Gen: NAD in chair Heart: RRR Lung: decreased breath sounds at the bases Abd: soft, nontender Ext: no edema CBC, BMP 04/20/18 07:30 04/20/18 07:30 Active Medications Albuterol Sulfate (Ventolin 0.083% Nebulizer Soln -) 1 amp NEB Q8H PRN PRN Reason: SHORT OF BREATH/WHEEZING Albuterol/Ipratropium (Duoneb -) 1 amp NEB RQID [facility] Last Admin: 04/20/18 07:31 Dose: 1 amp Alprazolam (Xanax -) 1 mg PO QID [facility] Last Admin: 04/20/18 10:20 Dose: 1 mg Apixaban (Eliquis -) 5 mg PO BID [facility] Last Admin: 04/20/18 10:19 Dose: 5 mg Atenolol (Tenormin -) 50 mg PO DAILY [facility] Last Admin: 04/20/18 10:19 Dose: 50 mg Chlorhexidine Gluconate (Hibiclens For Decolonization -) 1 applic TP HS [facility] Last Admin: 04/19/18 21:46 Dose: Not Given Vancomycin HCl 1,250 mg/ (Dextrose) 250 mls @ 166.667 mls/hr IVPB BID [facility]; Protocol Last Admin: 04/20/18 10:20 Dose: 166.667 mls/hr Methylprednisolone Sodium Succinate (Solu-Medrol -) 40 mg IVPUSH BID [facility] Last Admin: 04/20/18 10:20 Dose: 40 mg Mupirocin (Bactroban Ointment (For Decolonization) -) 1 applic NS BID [facility] Stop: 04/20/18 21:59 Last Admin: 04/20/18 10:19 Dose: Not Given Tamsulosin HCl (Flomax -) 0.8 mg PO DAILY@0830 [facility] Last Admin: 04/20/18 10:19 Dose: 0.8 mg A/P Acute on Chronic Hypoxic and Hypercapneic Respiratory Failure improving RLL Pneumonia Sepsis resolved Acute COPD Exacerbation Atrial Fibrillation HTN BPH - continue antibiotics per ID - can change steroids to PO prednisone 40mg daily in AM if continues to improve - inhaled bronchodilators standing and PRN - O2 to keep SpO2 >88% - rate control - continue anticoagulation
[2018-04-20 11:15] LABS: ANISOCYTOSIS 0; MACROCYTOSIS 0; PLATELET ESTIMATE INCREASED
[2018-04-20 13:01] VITALS: BMI 16.9
--- NOTE | 2018-04-20 13:54 | PN ---
Progress Note (short form) - Note Progress Note: s: no cp, palps, dizzy, sob, edema o: Vital Signs Period Temp Pulse Resp BP Sys/Cleaning Pulse Ox Last 24 Hr 97.8 F-98.2 F 54-75 18-20 105-133/55-80 94 nad, no jvd rrr s1s2 no mrg coarse bs bl, nl eff, aao3 no le e/c/c abd nt nd pos bs no jaundice diaphoresis Current Medications Albuterol Sulfate (Ventolin 0.083% Nebulizer Soln -) 1 amp NEB Q8H PRN PRN Reason: SHORT OF BREATH/WHEEZING Albuterol/Ipratropium (Duoneb -) 1 amp NEB RQID [facility] Last Admin: 04/20/18 11:11 Dose: 1 amp Alprazolam (Xanax -) 1 mg PO QID [facility] Last Admin: 04/20/18 13:41 Dose: 1 mg Apixaban (Eliquis -) 5 mg PO BID [facility] Last Admin: 04/20/18 10:19 Dose: 5 mg Atenolol (Tenormin -) 50 mg PO DAILY [facility] Last Admin: 04/20/18 10:19 Dose: 50 mg Chlorhexidine Gluconate (Hibiclens For Decolonization -) 1 applic TP HS [facility] Last Admin: 04/19/18 21:46 Dose: Not Given Vancomycin HCl 1,250 mg/ (Dextrose) 250 mls @ 166.667 mls/hr IVPB BID [facility]; Protocol Last Admin: 04/20/18 10:20 Dose: 166.667 mls/hr Methylprednisolone Sodium Succinate (Solu-Medrol -) 40 mg IVPUSH BID [facility] Last Admin: 04/20/18 10:20 Dose: 40 mg Mupirocin (Bactroban Ointment (For Decolonization) -) 1 applic NS BID [facility] Stop: 04/20/18 21:59 Last Admin: 04/20/18 10:19 Dose: Not Given Tamsulosin HCl (Flomax -) 0.8 mg PO DAILY@0830 [facility] Last Admin: 04/20/18 10:19 Dose: 0.8 mg tele: sr ecg: sr,nl intervals, no ischemic changes cxr: right pna echo 02/2018: nl lv/rv, mild tr, mod phtn a/p: 72 m hx copd, afib, htn, cad here s/p fall. fall: -mechanical, no signs of cardiac etiology pna: -cont abx, supplemental o2 afib: -in sr now -was on atenolol 50 qd and dilt 120 qd initially bp low likely from sepsis, improving - continue atenolol, holding diltiazem, rate is controlled -cont home eliquis htn: -stable cad: -unclear details, pt said he had cath at [facility] about 10 yrs ago and was told he had narrowing in artery but that due to its location it could not be fixed. he says he was started on plavix and told to continue. Seems that cad is no longer and indication for him to take plavix now that he is on eliquis. Would consider dc plavix if no other indication.
--- NOTE | 2018-04-20 15:22 | CONSULT ---
- Consultation REQUESTING PROVIDER: Zechariah Nicole - Wound Care CONSULT REQUEST: We have been asked to surgically evaluate this patient for sacral ulcer PCP: Georgina Michelle MD History Source: Medical Record HPI: Called to liset 72 yo male with PMHx, admitted to [facility] s/p syncopal episode. During his physical exam it was noted he has a sacral ulcer. Smoking history: Former smoker PMHx: AFIB, HTN, Bronchitis, COPD, O2 Dependent / BiPap, Pneumonia, B/L feet scars/ scratches, BPH PSHx: Appendectomy, Hernia Repair, Permanent Pacemaker Home Meds Alprazolam [Xanax] 1 mg PO QID 03/06/18 Apixaban [Eliquis] 5 mg PO BID 03/06/18 Atenolol [Tenormin -] 50 mg PO DAILY 03/06/18 Folic Acid 1 mg PO DAILY 03/06/18 Clopidogrel Bisulfate [Plavix -] 75 mg PO DAILY 03/07/18 Albuterol 2.5/Ipratropium 0.5 1 vial NEB QID PRN 03/09/18 [Duoneb -] Cefuroxime Axetil [Ceftin -] 500 mg PO Q12H 2 Days #4 tablet 03/11/18 Mineral Oil/Pet Hy-Phl [Aquaphor -] 1 applic TP BID jar 03/11/18 Prednisone See Taper PO DAILY #42 tablet 03/11/18 Tamsulosin HCl [Flomax -] 0.4 mg PO DAILY@0830 30 Days #30 03/11/18 Budesonide/Formeterol Fumarate 2 puff IH BID inhaler 03/19/18 [SYMBICORT 80/4.5mcg -] Diltiazem Cd [Cardizem Cd -] 120 mg PO DAILY #30 cap.cd.24h 03/19/18 Docusate Sodium [Colace -] 300 mg PO HS capsule 03/19/18 Polyethylene Glycol 3350 [Miralax 17 gm PO DAILY bottle 03/19/18 predniSONE [Deltasone -] 20 mg PO DAILY tablet 03/19/18 Allergies: NKDA ROS: CONSTITUTIONAL: Absent: fever, chills, diaphoresis, generalized weakness, malaise, loss of appetite, weight change CARDIOVASCULAR: Absent: chest pain, syncope, palpitations, irregular heart rate , lightheadedness, peripheral edema RESPIRATORY: Absent: cough, shortness of breath, dyspnea with exertion, wheezing , stridor, hemoptysis GASTROINTESTINAL:Absent: abdominal pain, abdominal distension, nausea, vomiting , diarrhea, constipation, melena, hematochezia GENITOURINARY: Absent: dysuria, frequency, urgency, hesitancy, hematuria, flank pain, genital pain MUSCULOSKELETAL: Absent: myalgia, arthralgia, joint swelling, back pain, neck pain SKIN: Absent: rash, itching, pallor HEMATOLOGIC/IMMUNOLOGIC: Absent: easy bleeding, easy bruising, lymphadenopathy NEUROLOGIC: Absent: headache, focal weakness, paresthesias, dizziness, unsteady gait, seizure, mental status changes, PSYCHIATRIC: Absent: anxiety, depression, suicidal or homicidal ideation, hallucinations. PE: GENERAL: Awake, alert, and fully oriented, in nad HEAD: NC. AT. EYES: PERRL, sclera anicteric, conjunctiva clear. NECK: Normal ROM, supple without lymphadenopathy, JVD, or masses. LUNGS: CTA bilat HEART: Afib ABDOMEN: Soft, NT. ND. MUSCULOSKELETAL: No CVAT bilat UE: 2+ pulses, warm, well-perfused. No cyanosis. Cap refill <2 seconds. No peripheral edema. LE: 2+ pulses, warm, well-perfused. No calf tenderness. No peripheral edema. NEURO: Normal speech, gait not observed. PSYCH: Cooperative. Good eye contact. Appropriate mood and affect. SKIN: Stage 1 sacral/pilonidal cleft ulcer. clean. No signs of infection. Not malodorous. No drainage. No bogginess/induration. DTI developing to right buttock near intergluteal cleft Last Vital Signs Temp Pulse Resp BP Pulse Ox 98.1 F 84 18 116/72 94 L 04/20/18 14:45 04/20/18 14:45 04/20/18 14:45 04/20/18 14:45 04/19/18 21:00 CBC, BMP 04/20/18 07:30 04/20/18 07:30 Microbiology 04/15/18 10:56 Blood - Peripheral Venous Blood Culture - Final NO GROWTH AFTER 5 DAYS INCUBATION 04/15/18 10:50 Blood - Peripheral Venous Blood Culture - Final NO GROWTH AFTER 5 DAYS INCUBATION 04/16/18 16:35 Sputum - Expectorated Gram Stain - Final 04/16/18 16:35 Sputum - Expectorated Sputum Culture - Final S Aureus 04/15/18 17:42 Urine For Antigen Detection Legionella Antigen - Final 04/15/18 17:42 Urine For Antigen Detection Streptococcus pneumoniae Antigen (M - Final 04/15/18 11:22 Urine - Urine Clean Catch Urine Culture - Final NO GROWTH OBTAINED Problem List - Problems (1) Stage 1 decubitus ulcer Assessment/Plan: Offload all pressure sensitive areas. Optifoam dressing No surgical intervention. Cont medical management Reconsult surgery as needed. On behalf of dr. Nicole, thank you for the opportunity to participate in your patient's care. Code(s): L89.91 - PRESSURE ULCER OF UNSPECIFIED SITE, STAGE 1 Visit type - Case Type Case Type: ED Admission - New patient This patient is new to me today: Yes Date on this admission: 04/20/18
[2018-04-20] MEDS: CHLORHEXIDINE GLUCONATE 4% CLEANSER FOR DECOLONIZATION TP SCH (22:23)
--- NOTE | 2018-04-20 22:34 | PN ---
Progress Note (short form) - Note Progress Note: in bed comfortable persistent cough Vital Signs Period Temp Pulse Resp BP Sys/Cleaning Pulse Ox Last 24 Hr 97.7 F-98.1 F 54-84 18-20 112-133/52-80 94-94 thin frail neck suppl e heart s1/S2 irreg lung decresed BS / ronchi left base expiratory wheeze abd soft non tneder barba in place ext no edema CBC, BMP 04/20/18 07:30 04/20/18 07:30 CBC, BMP 04/17/18 05:30 04/17/18 05:30 Microbiology 04/15/18 10:56 Blood - Peripheral Venous Blood Culture - Final NO GROWTH AFTER 5 DAYS INCUBATION 04/15/18 10:50 Blood - Peripheral Venous Blood Culture - Final NO GROWTH AFTER 5 DAYS INCUBATION 04/16/18 16:35 Sputum - Expectorated Gram Stain - Final 04/16/18 16:35 Sputum - Expectorated Sputum Culture - Final S Aureus 04/15/18 17:42 Urine For Antigen Detection Legionella Antigen - Final 04/15/18 17:42 Urine For Antigen Detection Streptococcus pneumoniae Antigen (M - Final 04/15/18 11:22 Urine - Urine Clean Catch Urine Culture - Final NO GROWTH OBTAINED Active Medications Albuterol Sulfate (Ventolin 0.083% Nebulizer Soln -) 1 amp NEB Q8H PRN PRN Reason: SHORT OF BREATH/WHEEZING Albuterol/Ipratropium (Duoneb -) 1 amp NEB RQID [facility] Last Admin: 04/20/18 20:53 Dose: 1 amp Alprazolam (Xanax -) 1 mg PO QID [facility] Last Admin: 04/20/18 22:21 Dose: 1 mg Apixaban (Eliquis -) 5 mg PO BID [facility] Last Admin: 04/20/18 22:21 Dose: 5 mg Atenolol (Tenormin -) 50 mg PO DAILY [facility] Last Admin: 04/20/18 10:19 Dose: 50 mg Chlorhexidine Gluconate (Hibiclens For Decolonization -) 1 applic TP HS [facility] Last Admin: 04/20/18 22:23 Dose: Not Given Vancomycin HCl 1,250 mg/ (Dextrose) 250 mls @ 166.667 mls/hr IVPB BID [facility]; Protocol Last Admin: 04/20/18 22:22 Dose: 166.667 mls/hr Methylprednisolone Sodium Succinate (Solu-Medrol -) 40 mg IVPUSH BID [facility] Last Admin: 04/20/18 22:22 Dose: 40 mg Tamsulosin HCl (Flomax -) 0.8 mg PO DAILY@0830 [facility] Last Admin: 04/20/18 10:19 Dose: 0.8 mg # PNA in setting of COPD inc in WBC today -- may need to re asses for infrction has remained afebrile / decubiti does not appear infected will reculture if febrile admitted with RLL pneumonia s/p acute on chronic hypoxic repiratory failure s/p sepsis required ICU NIPPV PRN keep O2 > 88% continue ABX / nebulizer / IV steroids # Atrial Fibrillation rate controlled -atenolol on NOAC - to continue # HTN trend Bp on atenolol # BPH required barba trial of voiding without barba if unsuccessful will resume and consult on flomax Problem List - Problems (1) Pneumonia Code(s): J18.9 - PNEUMONIA, UNSPECIFIED ORGANISM Qualifiers: Pneumonia type: due to unspecified organism Laterality: right Lung location: lower lobe of lung Qualified Code(s): J18.1 - Lobar pneumonia, unspecified organism (2) Respiratory failure with hypoxia and hypercapnia Code(s): J96.91 - RESPIRATORY FAILURE, UNSPECIFIED WITH HYPOXIA; J96.92 - RESPIRATORY FAILURE, UNSPECIFIED WITH HYPERCAPNIA (3) CHF exacerbation Code(s): I50.9 - HEART FAILURE, UNSPECIFIED (4) COPD exacerbation Code(s): J44.1 - CHRONIC OBSTRUCTIVE PULMONARY DISEASE W (ACUTE) EXACERBATION (5) Atrial fibrillation Code(s): I48.91 - UNSPECIFIED ATRIAL FIBRILLATION Qualifiers: Atrial fibrillation type: paroxysmal Qualified Code(s): I48.0 - Paroxysmal atrial fibrillation (6) Coronary artery disease Code(s): I25.10 - ATHSCL HEART DISEASE OF [place] CORONARY ARTERY W/O ANG PCTRS Qualifiers: Coronary Disease-Associated Artery/Lesion type: [place] artery [place] vs. transplanted heart: [place] heart Associated angina: without angina Qualified Code(s): I25.10 - Atherosclerotic heart disease of [place] coronary artery without angina pectoris (7) HTN (hypertension) Code(s): I10 - ESSENTIAL (PRIMARY) HYPERTENSION Qualifiers: Hypertension type: essential hypertension Qualified Code(s): I10 - Essential (primary) hypertension
[2018-04-21] MEDS: ALBUTEROL SO4 2.5/IPRATROPIUM 0.5 INH SOL 3 ML VIAL.NEB. NEB SCH ×4 (07:30→20:35)
[2018-04-21 07:47] LABS: BASO % 0.1 % (0-2.0); HEMATOCRIT 36.2 % (35.4-49); HEMOGLOBIN 11.9 GM/dL (11.7-16.9); LYMPH % 2.7 % (8-40); MCH 29.6 pg (25.7-33.7); MCHC 32.8 g/dl (32.0-35.9); MEAN CELL VOLUME 90.2 fl (80-96); MEAN PLT VOLUME 7.9 fl (7.5-11.1); MONO % 3.2 % (3.8-10.2); PLATELET COUNT 428 K/MM3 (134-434); RBC 4.01 M/mm3 (4.00-5.60); RDW 14.3 % (11.9-15.9); WHITE BLOOD COUNT 20.4 K/mm3 (4.0-10.0)
[2018-04-21 08:56] LABS: ANION GAP 6 MMOL/L (8-16); BLOOD UREA NITROGEN 11 mg/dL (7-18); CALCIUM 8.2 mg/dL (8.5-10.1); CHLORIDE 98 mmol/L (98-107); CO2 31 mmol/L (21-32); CREATININE 0.4 mg/dL (0.55-1.3); GLUCOSE,RANDOM 93 mg/dL (74-106); POTASSIUM 4.6 mmol/L (3.5-5.1); SODIUM 135 mmol/L (136-145)
--- NOTE | 2018-04-21 10:30 | PN ---
Progress Note (short form) - Note Progress Note: PULMONARY Breathing continues to improve. +nonproductive cough. No fevers or chills. Vital Signs Period Temp Pulse Resp BP Sys/Cleaning Pulse Ox Last 24 Hr 97.7 F-98.1 F 64-84 18-20 112-134/52-72 94 Gen: NAD in chair Heart: RRR Lung: decreased breath sounds at the bases Abd: soft, nontender Ext: no edema CBC, BMP 04/21/18 07:15 04/21/18 07:15 Active Medications Albuterol Sulfate (Ventolin 0.083% Nebulizer Soln -) 1 amp NEB Q8H PRN PRN Reason: SHORT OF BREATH/WHEEZING Albuterol/Ipratropium (Duoneb -) 1 amp NEB RQID [facility] Last Admin: 04/21/18 07:30 Dose: 1 amp Alprazolam (Xanax -) 1 mg PO QID [facility] Last Admin: 04/20/18 22:21 Dose: 1 mg Apixaban (Eliquis -) 5 mg PO BID [facility] Last Admin: 04/20/18 22:21 Dose: 5 mg Atenolol (Tenormin -) 50 mg PO DAILY [facility] Last Admin: 04/20/18 10:19 Dose: 50 mg Chlorhexidine Gluconate (Hibiclens For Decolonization -) 1 applic TP HS [facility] Last Admin: 04/20/18 22:23 Dose: Not Given Vancomycin HCl 1,250 mg/ (Dextrose) 250 mls @ 166.667 mls/hr IVPB BID [facility]; Protocol Last Admin: 04/20/18 22:22 Dose: 166.667 mls/hr Methylprednisolone Sodium Succinate (Solu-Medrol -) 40 mg IVPUSH BID [facility] Last Admin: 04/20/18 22:22 Dose: 40 mg Tamsulosin HCl (Flomax -) 0.8 mg PO DAILY@0830 [facility] Last Admin: 04/20/18 10:19 Dose: 0.8 mg A/P Acute on Chronic Hypoxic and Hypercapneic Respiratory Failure improving RLL Pneumonia Sepsis resolved Acute COPD Exacerbation Atrial Fibrillation HTN BPH - continue antibiotics per ID - will change steroids to PO prednisone - inhaled bronchodilators standing and PRN - O2 to keep SpO2 >88% - rate control - continue anticoagulation
--- NOTE | 2018-04-21 10:33 | PN ---
Progress Note (short form) - Note Progress Note: in bed comfortable persistent cough barba out voiding well Vital Signs Period Temp Pulse Resp BP Sys/[place] Pulse Ox Last 24 Hr 97.7 F-98.1 F 54-84 18-20 112-133/52-80 94-94 thin frail neck suppl e heart s1/S2 irreg lung decresed BS / ronchi left base expiratory wheeze abd soft non tneder / no pelvic distension ext no edema CBC, BMP 04/21/18 07:15 04/21/18 07:15 CBC, BMP 04/20/18 07:30 04/20/18 07:30 Microbiology 04/15/18 10:56 Blood - Peripheral Venous Blood Culture - Final NO GROWTH AFTER 5 DAYS INCUBATION 04/15/18 10:50 Blood - Peripheral Venous Blood Culture - Final NO GROWTH AFTER 5 DAYS INCUBATION 04/16/18 16:35 Sputum - Expectorated Gram Stain - Final 04/16/18 16:35 Sputum - Expectorated Sputum Culture - Final S Aureus 04/15/18 17:42 Urine For Antigen Detection Legionella Antigen - Final 04/15/18 17:42 Urine For Antigen Detection Streptococcus pneumoniae Antigen (M - Final 04/15/18 11:22 Urine - Urine Clean Catch Urine Culture - Final NO GROWTH OBTAINED Active Medications Albuterol Sulfate (Ventolin 0.083% Nebulizer Soln -) 1 amp NEB Q8H PRN PRN Reason: SHORT OF BREATH/WHEEZING Albuterol/Ipratropium (Duoneb -) 1 amp NEB RQID [facility] Last Admin: 04/21/18 07:30 Dose: 1 amp Alprazolam (Xanax -) 1 mg PO QID [facility] Last Admin: 04/20/18 22:21 Dose: 1 mg Apixaban (Eliquis -) 5 mg PO BID [facility] Last Admin: 04/20/18 22:21 Dose: 5 mg Atenolol (Tenormin -) 50 mg PO DAILY [facility] Last Admin: 04/20/18 10:19 Dose: 50 mg Chlorhexidine Gluconate (Hibiclens For Decolonization -) 1 applic TP HS [facility] Last Admin: 04/20/18 22:23 Dose: Not Given Vancomycin HCl 1,250 mg/ (Dextrose) 250 mls @ 166.667 mls/hr IVPB BID [facility]; Protocol Last Admin: 04/20/18 22:22 Dose: 166.667 mls/hr Prednisone (Deltasone -) 40 mg PO DAILY [facility] Tamsulosin HCl (Flomax -) 0.8 mg PO DAILY@0830 [facility] Last Admin: 04/20/18 10:19 Dose: 0.8 mg # PNA in setting of COPD inc in WBC today -- may need to re asses for infrction has remained afebrile / decubiti does not appear infected will reculture if febrile admitted with RLL pneumonia s/p acute on chronic hypoxic repiratory failure s/p sepsis required ICU NIPPV PRN keep O2 > 88% continue ABX / nebulizer / IV steroids # Atrial Fibrillation rate controlled -atenolol on NOAC - to continue # HTN trend Bp on atenolol # BPH required barba trial of voiding without barba if unsuccessful will resume and consult on flomax Problem List - Problems (1) Pneumonia Code(s): J18.9 - PNEUMONIA, UNSPECIFIED ORGANISM Qualifiers: Pneumonia type: due to unspecified organism Laterality: right Lung location: lower lobe of lung Qualified Code(s): J18.1 - Lobar pneumonia, unspecified organism (2) Respiratory failure with hypoxia and hypercapnia Code(s): J96.91 - RESPIRATORY FAILURE, UNSPECIFIED WITH HYPOXIA; J96.92 - RESPIRATORY FAILURE, UNSPECIFIED WITH HYPERCAPNIA (3) CHF exacerbation Code(s): I50.9 - HEART FAILURE, UNSPECIFIED (4) COPD exacerbation Code(s): J44.1 - CHRONIC OBSTRUCTIVE PULMONARY DISEASE W (ACUTE) EXACERBATION (5) Atrial fibrillation Code(s): I48.91 - UNSPECIFIED ATRIAL FIBRILLATION Qualifiers: Atrial fibrillation type: paroxysmal Qualified Code(s): I48.0 - Paroxysmal atrial fibrillation (6) Coronary artery disease Code(s): I25.10 - ATHSCL HEART DISEASE OF [place] CORONARY ARTERY W/O ANG PCTRS Qualifiers: Coronary Disease-Associated Artery/Lesion type: [place] artery [place] vs. transplanted heart: [place] heart Associated angina: without angina Qualified Code(s): I25.10 - Atherosclerotic heart disease of [place] coronary artery without angina pectoris (7) HTN (hypertension) Code(s): I10 - ESSENTIAL (PRIMARY) HYPERTENSION Qualifiers: Hypertension type: essential hypertension Qualified Code(s): I10 - Essential (primary) hypertension
[2018-04-21] MEDS: methylPREDNISolone NA SUCC 40 MG/1 ML VIAL IVPUSH SCH (10:48)
[2018-04-21 10:49] LABS: ACANTHOCYTES 0; ANISOCYTOSIS 0; HELMET CELLS 0; HOWELL-JOLLY BODIES 0; MACROCYTOSIS 0; OVALOCYTE 0; PLATELET ESTIMATE NORMAL; ROULEAU 0; SICKELED CELLS 0; TARGET CELLS 0; TEAR DROP CELLS 0; TOXIC GRANULATION 0
[2018-04-21] MEDS ORDERED: PT OWN MED DRAWER 7, Y5N ONE (11:11)
[2018-04-21] MEDS: ALPRAZolam 2 MG TABLET PO SCH ×4 (11:15→21:28)
[2018-04-21] MEDS: VANCOMYCIN 1,250 MG in DEXTROSE 5%-WATER - 250 ML IVPB SCH ×2 (11:16→21:28)
[2018-04-21] MEDS: TAMSULOSIN HCL 0.4 MG CAP.ER.24H (FP) PO SCH (11:16)
[2018-04-21] MEDS: APIXABAN 5 MG TABLET PO SCH ×2 (11:16→21:28)
[2018-04-21] MEDS: ATENOLOL 50 MG TABLET (FP) PO SCH (11:16)
[2018-04-21] MEDS ORDERED: methylPREDNISolone NA SUCC 40 MG/1 ML VIAL IVPUSH ONE (12:00)
--- NOTE | 2018-04-21 15:32 | PN ---
Progress Note (short form) - Note Progress Note: s: less sob today, no cp palps dizzy o: Vital Signs Period Temp Pulse Resp BP Sys/Cleaning Pulse Ox Last 24 Hr 97.7 F-97.7 F 64-84 20-20 112-134/52-56 94 nad, no jvd rrr s1s2 no mrg cta bl, nl eff, aao3 no le e/c/c abd nt nd pos bs no jaundice diaphoresis Current Medications Generic Name Dose Route Start Last Admin Trade Name Freq PRN Reason Stop Dose Admin Albuterol Sulfate 1 amp 04/16/18 18:03 Ventolin 0.083% Nebulizer Soln - NEB Q8H PRN SHORT OF BREATH/WHEEZING Albuterol/Ipratropium 1 amp 04/16/18 20:00 04/21/18 07:30 Duoneb - NEB 1 amp RQID GE Administration Alprazolam 1 mg 04/17/18 14:45 04/21/18 14:41 Xanax - PO 1 mg QID GE Administration Apixaban 5 mg 04/16/18 22:00 04/21/18 11:16 Eliquis - PO 5 mg BID GE Administration Atenolol 50 mg 04/17/18 10:00 04/21/18 11:16 Tenormin - PO 50 mg DAILY GE Administration Vancomycin HCl 1,250 mg/ 250 mls @ 166.667 mls/hr 04/19/18 22:00 04/21/18 11: 16 Dextrose IVPB 166.667 mls/hr BID GE Administration Protocol Prednisone 40 mg 04/22/18 10:00 Deltasone - PO DAILY GE Tamsulosin HCl 0.8 mg 04/20/18 08:30 04/21/18 11:16 Flomax - PO 0.8 mg DAILY@0830 GE Administration CBC, BMP 04/21/18 07:15 04/21/18 07:15 ecg: sr,nl intervals, no ischemic changes cxr: right pna echo 02/2018: nl lv/rv, mild tr, mod phtn a/p: 72 m hx copd, afib, htn, cad here s/p fall. fall: -mechanical, no signs of cardiac etiology pna: -on abx afib: -in sr now -was on atenolol 50 qd and dilt 120 qd but now bp low likely from sepsis. held these meds at first, now atenolol resumed. Resume dilt on dc. -cont home eliquis htn: -stable cad: -unclear details, pt said he had cath at [facility] about 10 yrs ago and was told he had narrowing in artery but that due to its location it could not be fixed. he says he was started on plavix and told to continue. Seems that cad is no longer and indication for him to take plavix now that he is on eliquis. Would consider dc plavix if no other indication.
--- NOTE | 2018-04-21 17:27 | PN ---
Progress Note (short form) - Note Progress Note: doing much better alert no oxygen feels well Vital Signs Period Temp Pulse Resp BP Sys/Cleaning Pulse Ox Last 24 Hr 97.7 F-98.4 F 64-95 18-20 112-142/52-70 94-97 cor-rrr lungs clear abd soft,nt ext no edema CBC, BMP 04/21/18 07:15 04/21/18 07:15 Microbiology 04/15/18 10:56 Blood - Peripheral Venous Blood Culture - Final NO GROWTH AFTER 5 DAYS INCUBATION 04/15/18 10:50 Blood - Peripheral Venous Blood Culture - Final NO GROWTH AFTER 5 DAYS INCUBATION 04/16/18 16:35 Sputum - Expectorated Gram Stain - Final 04/16/18 16:35 Sputum - Expectorated Sputum Culture - Final S Aureus 04/15/18 17:42 Urine For Antigen Detection Legionella Antigen - Final 04/15/18 17:42 Urine For Antigen Detection Streptococcus pneumoniae Antigen (M - Final 04/15/18 11:22 Urine - Urine Clean Catch Urine Culture - Final NO GROWTH OBTAINED Microbiology 04/15/18 10:56 Blood - Peripheral Venous Blood Culture - Final NO GROWTH AFTER 5 DAYS INCUBATION 04/15/18 10:50 Blood - Peripheral Venous Blood Culture - Final NO GROWTH AFTER 5 DAYS INCUBATION 04/16/18 16:35 Sputum - Expectorated Gram Stain - Final 04/16/18 16:35 Sputum - Expectorated Sputum Culture - Final S Aureus 04/15/18 17:42 Urine For Antigen Detection Legionella Antigen - Final 04/15/18 17:42 Urine For Antigen Detection Streptococcus pneumoniae Antigen (M - Final 04/15/18 11:22 Urine - Urine Clean Catch Urine Culture - Final NO GROWTH OBTAINED a/p RLL pneumonia-MRSA hyopoxemic hypercapneic resp failure copd mrsa day #7 antibiotics contact isolation cxray is stable suspect leukocytosis is partially due to steroids consider d/c home on po bactrim or zyvox soon check vanco trough in am Problem List - Problems (1) Respiratory failure with hypoxia and hypercapnia Code(s): J96.91 - RESPIRATORY FAILURE, UNSPECIFIED WITH HYPOXIA; J96.92 - RESPIRATORY FAILURE, UNSPECIFIED WITH HYPERCAPNIA (2) Pneumonia Code(s): J18.9 - PNEUMONIA, UNSPECIFIED ORGANISM Qualifiers: Pneumonia type: due to unspecified organism Laterality: right Lung location: lower lobe of lung Qualified Code(s): J18.1 - Lobar pneumonia, unspecified organism (3) CHF exacerbation Code(s): I50.9 - HEART FAILURE, UNSPECIFIED (4) COPD exacerbation Code(s): J44.1 - CHRONIC OBSTRUCTIVE PULMONARY DISEASE W (ACUTE) EXACERBATION (5) MRSA (methicillin resistant Staphylococcus aureus) carrier Code(s): Z22.322 - CARRIER OR SUSPECTED CARRIER OF METHICILLIN RESIS STAPH
[2018-04-22 07:07] LABS: EOS % 0.4 % (0-4.5); HEMOGLOBIN 10.9 GM/dL (11.7-16.9); LYMPH % 8.2 % (8-40); MCH 29.6 pg (25.7-33.7); MEAN CELL VOLUME 89.6 fl (80-96); MEAN PLT VOLUME 7.8 fl (7.5-11.1); MONO % 6.8 % (3.8-10.2); NEUT % 84.6 % (42.8-82.8); PLATELET COUNT 393 K/MM3 (134-434); RBC 3.68 M/mm3 (4.00-5.60); RDW 14.2 % (11.9-15.9); WHITE BLOOD COUNT 16.3 K/mm3 (4.0-10.0)
[2018-04-22 07:22] LABS: ALBUMIN 2.2 g/dl (3.4-5.0); ANION GAP 5 MMOL/L (8-16); BLOOD UREA NITROGEN 11 mg/dL (7-18); CALCIUM 7.7 mg/dL (8.5-10.1); CHLORIDE 98 mmol/L (98-107); CO2 33 mmol/L (21-32); CREATININE 0.3 mg/dL (0.55-1.3); GLUCOSE,RANDOM 74 mg/dL (74-106); POTASSIUM 4.1 mmol/L (3.5-5.1); SODIUM 136 mmol/L (136-145)
[2018-04-22] MEDS: TAMSULOSIN HCL 0.4 MG CAP.ER.24H (FP) PO SCH (07:44)
[2018-04-22] MEDS: ALBUTEROL SO4 2.5/IPRATROPIUM 0.5 INH SOL 3 ML VIAL.NEB. NEB SCH ×4 (08:10→20:10)
[2018-04-22] MEDS ORDERED: predniSONE 20 MG TABLET (UD) PO SCH (10:00)
--- NOTE | 2018-04-22 10:09 | PN ---
Progress Note (short form) - Note Progress Note: in bed comfortable persistent cough barba out voiding well appreciate ID and pulmonary follow up Vital Signs Period Temp Pulse Resp BP Sys/Cleaning Pulse Ox Last 24 Hr 97.9 F-98.4 F 67-95 15-20 122-142/54-70 97 thin frail neck suppl e heart s1/S2 irreg lung decresed BS / ronchi left base expiratory wheeze abd soft non tneder / no pelvic distension ext no edema CBC, BMP 04/22/18 06:30 04/22/18 06:30 CBC, BMP 04/21/18 07:15 04/21/18 07:15 CBC, BMP 04/20/18 07:30 04/20/18 07:30 Microbiology 04/15/18 10:56 Blood - Peripheral Venous Blood Culture - Final NO GROWTH AFTER 5 DAYS INCUBATION 04/15/18 10:50 Blood - Peripheral Venous Blood Culture - Final NO GROWTH AFTER 5 DAYS INCUBATION 04/16/18 16:35 Sputum - Expectorated Gram Stain - Final 04/16/18 16:35 Sputum - Expectorated Sputum Culture - Final Mr S Aureus 04/15/18 17:42 Urine For Antigen Detection Legionella Antigen - Final 04/15/18 17:42 Urine For Antigen Detection Streptococcus pneumoniae Antigen (M - Final 04/15/18 11:22 Urine - Urine Clean Catch Urine Culture - Final NO GROWTH OBTAINED Active Medications Albuterol Sulfate (Ventolin 0.083% Nebulizer Soln -) 1 amp NEB Q8H PRN PRN Reason: SHORT OF BREATH/WHEEZING Albuterol/Ipratropium (Duoneb -) 1 amp NEB RQID [facility] Last Admin: 04/22/18 08:10 Dose: 1 amp Alprazolam (Xanax -) 1 mg PO QID [facility] Last Admin: 04/21/18 21:28 Dose: 1 mg Apixaban (Eliquis -) 5 mg PO BID [facility] Last Admin: 04/21/18 21:28 Dose: 5 mg Atenolol (Tenormin -) 50 mg PO DAILY [facility] Last Admin: 04/21/18 11:16 Dose: 50 mg Vancomycin HCl 1,250 mg/ (Dextrose) 250 mls @ 166.667 mls/hr IVPB BID [facility]; Protocol Last Admin: 04/21/18 21:28 Dose: 166.667 mls/hr Prednisone (Deltasone -) 40 mg PO DAILY [facility] Tamsulosin HCl (Flomax -) 0.8 mg PO DAILY@0830 [facility] Last Admin: 04/22/18 07:44 Dose: 0.8 mg # PNA in setting of COPD WBC down with decreased steroids has remained afebrile / decubiti does not appear infected admitted with RLL pneumonia -MRSA s/p acute on chronic hypoxic repiratory failure s/p sepsis required ICU Vanco - vanco trough prednisone to PO arrangements for home discharge being discussed # Atrial Fibrillation rate controlled -atenolol on NOAC - to continue # HTN trend Bp on atenolol # BPH on flomax doing well- will continue as out patient Problem List - Problems (1) Pneumonia Code(s): J18.9 - PNEUMONIA, UNSPECIFIED ORGANISM Qualifiers: Pneumonia type: due to unspecified organism Laterality: right Lung location: lower lobe of lung Qualified Code(s): J18.1 - Lobar pneumonia, unspecified organism (2) Respiratory failure with hypoxia and hypercapnia Code(s): J96.91 - RESPIRATORY FAILURE, UNSPECIFIED WITH HYPOXIA; J96.92 - RESPIRATORY FAILURE, UNSPECIFIED WITH HYPERCAPNIA (3) CHF exacerbation Code(s): I50.9 - HEART FAILURE, UNSPECIFIED (4) COPD exacerbation Code(s): J44.1 - CHRONIC OBSTRUCTIVE PULMONARY DISEASE W (ACUTE) EXACERBATION (5) Atrial fibrillation Code(s): I48.91 - UNSPECIFIED ATRIAL FIBRILLATION Qualifiers: Atrial fibrillation type: paroxysmal Qualified Code(s): I48.0 - Paroxysmal atrial fibrillation (6) Coronary artery disease Code(s): I25.10 - ATHSCL HEART DISEASE OF [place] CORONARY ARTERY W/O ANG PCTRS Qualifiers: Coronary Disease-Associated Artery/Lesion type: [place] artery [place] vs. transplanted heart: [place] heart Associated angina: without angina Qualified Code(s): I25.10 - Atherosclerotic heart disease of [place] coronary artery without angina pectoris (7) HTN (hypertension) Code(s): I10 - ESSENTIAL (PRIMARY) HYPERTENSION Qualifiers: Hypertension type: essential hypertension Qualified Code(s): I10 - Essential (primary) hypertension
[2018-04-22] MEDS: ALPRAZolam 2 MG TABLET PO SCH ×4 (10:27→21:49)
[2018-04-22] MEDS: APIXABAN 5 MG TABLET PO SCH ×2 (10:28→21:49)
[2018-04-22] MEDS: ATENOLOL 50 MG TABLET (FP) PO SCH (10:28)
[2018-04-22 11:16] LABS: ACANTHOCYTES 0; ANISOCYTOSIS 0; HELMET CELLS 0; HOWELL-JOLLY BODIES 0; MACROCYTOSIS 0; OVALOCYTE 0; PLATELET ESTIMATE NORMAL; ROULEAU 0; SICKELED CELLS 0; TARGET CELLS 0; TEAR DROP CELLS 0; TOXIC GRANULATION 0
[2018-04-22] MEDS: VANCOMYCIN 1,250 MG in DEXTROSE 5%-WATER - 250 ML IVPB SCH ×2 (11:44→21:49)
--- NOTE | 2018-04-22 14:07 | PN ---
Progress Note (short form) - Note Progress Note: PULMONARY Breathing continues to improve. +nonproductive cough. No fevers or chills. Vital Signs Period Temp Pulse Resp BP Sys/Cleaning Pulse Ox Last 24 Hr 97.9 F-98.4 F 67-95 15-20 122-142/54-70 97 Gen: NAD in chair Heart: RRR Lung: decreased breath sounds at the bases Abd: soft, nontender Ext: no edema CBC, BMP 04/22/18 06:30 04/22/18 06:30 Active Medications Albuterol Sulfate (Ventolin 0.083% Nebulizer Soln -) 1 amp NEB Q8H PRN PRN Reason: SHORT OF BREATH/WHEEZING Albuterol/Ipratropium (Duoneb -) 1 amp NEB RQID [facility] Last Admin: 04/22/18 11:35 Dose: 1 amp Alprazolam (Xanax -) 1 mg PO QID [facility] Last Admin: 04/22/18 10:27 Dose: 1 mg Apixaban (Eliquis -) 5 mg PO BID [facility] Last Admin: 04/22/18 10:28 Dose: 5 mg Atenolol (Tenormin -) 50 mg PO DAILY [facility] Last Admin: 04/22/18 10:28 Dose: 50 mg Vancomycin HCl 1,250 mg/ (Dextrose) 250 mls @ 166.667 mls/hr IVPB BID [facility]; Protocol Last Admin: 04/22/18 11:44 Dose: 166.667 mls/hr Prednisone (Deltasone -) 40 mg PO DAILY [facility] Last Admin: 04/22/18 10:31 Dose: 40 mg Tamsulosin HCl (Flomax -) 0.8 mg PO DAILY@0830 [facility] Last Admin: 04/22/18 07:44 Dose: 0.8 mg A/P Acute on Chronic Hypoxic and Hypercapneic Respiratory Failure improving RLL Pneumonia Sepsis resolved Acute COPD Exacerbation Atrial Fibrillation HTN BPH - continue antibiotics per ID - will decrease prednisone to 30mg daily - inhaled bronchodilators standing and PRN - O2 to keep SpO2 >88% - rate control - continue anticoagulation - can d/c home from pulmonary standpoint
--- NOTE | 2018-04-22 17:35 | PN ---
Progress Note (short form) - Note Progress Note: s: no cp palps dizzy sob o: Vital Signs Period Temp Pulse Resp BP Sys/Cleaning Pulse Ox Last 24 Hr 97.9 F-98.7 F 67-78 15-20 105-132/51-62 97-97 nad, no jvd rrr s1s2 no mrg cta bl, nl eff, aao3 no le e/c/c abd nt nd pos bs no jaundice diaphoresis Current Medications Generic Name Dose Route Start Last Admin Trade Name Freq PRN Reason Stop Dose Admin Albuterol Sulfate 1 amp 04/16/18 18:03 Ventolin 0.083% Nebulizer Soln - NEB Q8H PRN SHORT OF BREATH/WHEEZING Albuterol/Ipratropium 1 amp 04/16/18 20:00 04/22/18 16:11 Duoneb - NEB 1 amp RQID GE Administration Alprazolam 1 mg 04/17/18 14:45 04/22/18 14:55 Xanax - PO 1 mg QID GE Administration Apixaban 5 mg 04/16/18 22:00 04/22/18 10:28 Eliquis - PO 5 mg BID GE Administration Atenolol 50 mg 04/17/18 10:00 04/22/18 10:28 Tenormin - PO 50 mg DAILY GE Administration Vancomycin HCl 1,250 mg/ 250 mls @ 166.667 mls/hr 04/19/18 22:00 04/22/18 11: 44 Dextrose IVPB 166.667 mls/hr BID GE Administration Protocol Prednisone 30 mg 04/23/18 10:00 Deltasone - PO DAILY GE Tamsulosin HCl 0.8 mg 04/20/18 08:30 04/22/18 07:44 Flomax - PO 0.8 mg DAILY@0830 GE Administration CBC, BMP 04/22/18 06:30 04/22/18 06:30 ecg: sr,nl intervals, no ischemic changes cxr: right pna echo 02/2018: nl lv/rv, mild tr, mod phtn a/p: 72 m hx copd, afib, htn, cad here s/p fall. fall: -mechanical, no signs of cardiac etiology pna: -on abx afib: -in sr now -was on atenolol 50 qd and dilt 120 qd but bp has been low here so held these meds at first, now atenolol resumed. Can continue to hold dilt as not needed for hr or bp control at this time. -cont home eliquis htn: -stable on lisinopril cad: -unclear details, pt said he had cath at [facility] about 10 yrs ago and was told he had narrowing in artery but that due to its location it could not be fixed. he says he was started on plavix and told to continue. Seems that cad is no longer and indication for him to take plavix now that he is on eliquis. Would consider dc plavix if no other indication.
[2018-04-22] MEDS ORDERED: PT OWN MED DRAWER 7, Y5N ONE (21:22)
[2018-04-23 06:59] LABS: BASO % 0.2 % (0-2.0); EOS % 0.8 % (0-4.5); HEMATOCRIT 35.8 % (35.4-49); HEMOGLOBIN 11.8 GM/dL (11.7-16.9); LYMPH % 9.6 % (8-40); MCH 29.5 pg (25.7-33.7); MCHC 32.9 g/dl (32.0-35.9); MEAN CELL VOLUME 89.7 fl (80-96); MEAN PLT VOLUME 7.7 fl (7.5-11.1); MONO % 7.7 % (3.8-10.2); NEUT % 81.7 % (42.8-82.8); PLATELET COUNT 406 K/MM3 (134-434); RDW 14.5 % (11.9-15.9); WHITE BLOOD COUNT 15.5 K/mm3 (4.0-10.0)
--- NOTE | 2018-04-23 07:38 | DS ---
Physical Examination Vital Signs: Vital Signs Temperature 98 F 04/23/18 06:00 Pulse Rate 76 04/23/18 06:00 Respiratory Rate 20 04/23/18 06:00 Blood Pressure 150/64 04/23/18 06:00 O2 Sat by Pulse Oximetry (%) 98 04/22/18 21:00 Findings/Remarks: HISTORY OF PRESENT ILLNESS: A 72 y.o. M w/ PMHx. of COPD(not on home O2), A. Fib ( on Eliquis), HTN and BPH, present to the ED for syncopal episode. Pt.s provided Hx, as Pt. was on Bipap. Over the last few days prior to admission Pt. had been feeling increasingly lethargic with subjective fever, and coughing with phlegm production. Pt.and Pt's unable to describe phlegm. Pt. woke up morning of admission, went to use the bathroom(complaining of incontinence), when the Pt. slipped on his own urine and fell to the ground. Pt. denies hitting head or losing consciousness. Pt. was recently admitted for pneumonia one month ago and was treat with Vancomycin and Zosyn. He had a positive(?contamination) culture for MRSA. Pt. at time of admission endorses "leaking urine," suprapubic abdominal pain, fever, shortness of breath and a cough that has been present for a long time. On evaluation was found to have pneumonia, and during course of hospital stay episode of urinary obstruction necessitating barba placement. He was started on flomax and a few days later successful trila of voiding. He has completed TX for pneumonia and declines STR, so arrangements for home d/c with [facility]NS for PT. Constitutional: Yes: No Distress, Calm, Thin Eyes: Yes: Conjunctiva Clear, EOM Intact HENT: Yes: Atraumatic, Normocephalic Neck: Yes: Supple, Trachea Midline Cardiovascular: Yes: Regular Rate and Rhythm Respiratory: Yes: Diminished, SOB on Exertion Gastrointestinal: Yes: Normal Bowel Sounds, Soft ...Rectal Exam: Yes: Deferred Renal/: Yes: WNL. 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 (Acute) Pneumonia (Acute) Respiratory failure with hypoxia and hypercapnia (Acute) Stage 1 decubitus ulcer (Acute) Condition: Improved - Instructions Referrals: Piyush Cordoba [Primary Care Provider] - Disposition: HOME - Home Medications Comprehensive Discharge Medication List: Ambulatory Orders Alprazolam [Xanax] 1 mg PO QID 03/06/18 Apixaban [Eliquis] 5 mg PO BID 03/06/18 Atenolol [Tenormin -] 50 mg PO DAILY 03/06/18 Folic Acid 1 mg PO DAILY 03/06/18 Clopidogrel Bisulfate [Plavix -] 75 mg PO DAILY 03/07/18 Albuterol 2.5/Ipratropium 0.5 [Duoneb -] 1 vial NEB QID PRN 03/09/18 Cefuroxime Axetil [Ceftin -] 500 mg PO Q12H 2 Days #4 tablet 03/11/18 Mineral Oil/Pet Hy-Phl [Aquaphor -] 1 applic TP BID jar 03/11/18 Tamsulosin HCl [Flomax -] 0.8 mg PO DAILY@0830 30 Days #30 cap.er.24h 03/11/18 Budesonide/Formeterol Fumarate [SYMBICORT 80/4.5mcg -] 2 puff IH BID inhaler Diltiazem Cd [Cardizem Cd -] 120 mg PO DAILY #30 cap.cd.24h 03/19/18 Docusate Sodium [Colace -] 300 mg PO HS capsule 03/19/18 Polyethylene Glycol 3350 [Miralax 119 gm Btl -] 17 gm PO DAILY bottle 03/19/18 predniSONE [Deltasone -] 20 mg PO q am, with food -- with taper over 2 weeks
[2018-04-23] MEDS: ALBUTEROL SO4 2.5/IPRATROPIUM 0.5 INH SOL 3 ML VIAL.NEB. NEB SCH ×2 (08:15→11:44)
[2018-04-23] MEDS: ALPRAZolam 2 MG TABLET PO SCH (09:45)
[2018-04-23] MEDS: TAMSULOSIN HCL 0.4 MG CAP.ER.24H (FP) PO SCH (09:46)
[2018-04-23] MEDS: ATENOLOL 50 MG TABLET (FP) PO SCH (09:46)
[2018-04-23] MEDS: APIXABAN 5 MG TABLET PO SCH (09:46)
[2018-04-23] MEDS ORDERED: predniSONE 20 MG TABLET (UD) PO SCH (10:00)
--- NOTE | 2018-04-23 10:12 | PN ---
Progress Note (short form) - Note Progress Note: PULMONARY Breathing continues to improve. +nonproductive cough. No fevers or chills. Vital Signs Period Temp Pulse Resp BP Sys/Cleaning Pulse Ox Last 24 Hr 97.7 F-98.7 F 75-88 13-20 105-150/51-65 98 Gen: NAD in chair Heart: RRR Lung: decreased breath sounds at the bases Abd: soft, nontender Ext: no edema CBC, BMP 04/23/18 06:31 04/22/18 06:30 Active Medications Albuterol Sulfate (Ventolin 0.083% Nebulizer Soln -) 1 amp NEB Q8H PRN PRN Reason: SHORT OF BREATH/WHEEZING Albuterol/Ipratropium (Duoneb -) 1 amp NEB RQID [facility] Last Admin: 04/23/18 08:15 Dose: 1 amp Alprazolam (Xanax -) 1 mg PO QID [facility] Last Admin: 04/23/18 09:45 Dose: 1 mg Apixaban (Eliquis -) 5 mg PO BID [facility] Last Admin: 04/23/18 09:46 Dose: 5 mg Atenolol (Tenormin -) 50 mg PO DAILY [facility] Last Admin: 04/23/18 09:46 Dose: 50 mg Vancomycin HCl 1,250 mg/ (Dextrose) 250 mls @ 166.667 mls/hr IVPB BID [facility]; Protocol Last Admin: 04/22/18 21:49 Dose: 166.667 mls/hr Prednisone (Deltasone -) 30 mg PO DAILY [facility] Last Admin: 04/23/18 09:46 Dose: 30 mg Tamsulosin HCl (Flomax -) 0.8 mg PO DAILY@0830 [facility] Last Admin: 04/23/18 09:46 Dose: 0.8 mg A/P Acute on Chronic Hypoxic and Hypercapneic Respiratory Failure improving RLL Pneumonia Sepsis resolved Acute COPD Exacerbation Atrial Fibrillation HTN BPH - continue antibiotics per ID - taper off prednisone as outpt - inhaled bronchodilators standing and PRN - O2 to keep SpO2 >88% - rate control - continue anticoagulation - can d/c home from pulmonary standpoint, will need outpt f/u of CXR in 6-8 weeks to ensure resolution of infiltrate
--- NOTE | 2018-04-23 11:05 | PN ---
Progress Note (short form) - Note Progress Note: s: no cp palps dizzy sob o: Vital Signs Period Temp Pulse Resp BP Sys/Cleaning Pulse Ox Last 24 Hr 97.7 F-98.7 F 75-88 13-20 105-150/51-65 98 nad, no jvd rrr s1s2 no mrg cta bl, nl eff, aao3 no le e/c/c abd nt nd pos bs no jaundice diaphoresis Current Medications Generic Name Dose Route Start Last Admin Trade Name Freq PRN Reason Stop Dose Admin Albuterol Sulfate 1 amp 04/16/18 18:03 Ventolin 0.083% Nebulizer Soln - NEB Q8H PRN SHORT OF BREATH/WHEEZING Albuterol/Ipratropium 1 amp 04/16/18 20:00 04/23/18 08:15 Duoneb - NEB 1 amp RQID GE Administration Alprazolam 1 mg 04/17/18 14:45 04/23/18 09:45 Xanax - PO 1 mg QID GE Administration Apixaban 5 mg 04/16/18 22:00 04/23/18 09:46 Eliquis - PO 5 mg BID GE Administration Atenolol 50 mg 04/17/18 10:00 04/23/18 09:46 Tenormin - PO 50 mg DAILY GE Administration Vancomycin HCl 1,250 mg/ 250 mls @ 166.667 mls/hr 04/19/18 22:00 04/22/18 21: 49 Dextrose IVPB 166.667 mls/hr BID GE Administration Protocol Prednisone 30 mg 04/23/18 10:00 04/23/18 09:46 Deltasone - PO 30 mg DAILY GE Administration Tamsulosin HCl 0.8 mg 04/20/18 08:30 04/23/18 09:46 Flomax - PO 0.8 mg DAILY@0830 GE Administration CBC, BMP 04/23/18 06:31 04/22/18 06:30 ecg: sr,nl intervals, no ischemic changes cxr: right pna echo 02/2018: nl lv/rv, mild tr, mod phtn a/p: 72 m hx copd, afib, htn, cad here s/p fall. fall: -mechanical, no signs of cardiac etiology pna: -on abx afib: -in sr now -was on atenolol 50 qd and dilt 120 qd but bp has been low here so held these meds at first, now atenolol resumed. Can continue to hold dilt as not needed for hr or bp control at this time. -cont home eliquis htn: -stable on lisinopril cad: -unclear details, pt said he had cath at [facility] about 10 yrs ago and was told he had narrowing in artery but that due to its location it could not be fixed. he says he was started on plavix and told to continue. Seems that cad is no longer and indication for him to take plavix now that he is on eliquis. Would consider dc plavix if no other indication. cardiac cox stable for dc
[2018-04-23] MEDS: VANCOMYCIN 1,250 MG in DEXTROSE 5%-WATER - 250 ML IVPB SCH (11:13)
[2018-04-23 11:15] VITALS: BP 158/71; PULSE 96; TEMP 98.2
[2018-04-23 11:27] LABS: ACANTHOCYTES 0; ANISOCYTOSIS 0; HELMET CELLS 0; HOWELL-JOLLY BODIES 0; MACROCYTOSIS 0; OVALOCYTE 0; PLATELET ESTIMATE NORMAL; ROULEAU 0; SICKELED CELLS 0; TARGET CELLS 0; TEAR DROP CELLS 0; TOXIC GRANULATION 0
--- NOTE | 2018-04-23 13:50 | PN ---
Progress Note (short form) - Note Progress Note: patient was discharged earlier today d/w Dr Michelle day #9 vancomycin would treat with po bactrim 1 po bid for 5 days she will send prescriiption to the pharmacy Problem List - Problems (1) Respiratory failure with hypoxia and hypercapnia Code(s): J96.91 - RESPIRATORY FAILURE, UNSPECIFIED WITH HYPOXIA; J96.92 - RESPIRATORY FAILURE, UNSPECIFIED WITH HYPERCAPNIA (2) Pneumonia Code(s): J18.9 - PNEUMONIA, UNSPECIFIED ORGANISM Qualifiers: Pneumonia type: due to unspecified organism Laterality: right Lung location: lower lobe of lung Qualified Code(s): J18.1 - Lobar pneumonia, unspecified organism (3) CHF exacerbation Code(s): I50.9 - HEART FAILURE, UNSPECIFIED (4) COPD exacerbation Code(s): J44.1 - CHRONIC OBSTRUCTIVE PULMONARY DISEASE W (ACUTE) EXACERBATION (5) MRSA (methicillin resistant Staphylococcus aureus) carrier Code(s): Z22.322 - CARRIER OR SUSPECTED CARRIER OF METHICILLIN RESIS STAPH
== END 2018-04-23 13:54 | disposition home health service (06) | DRG 871 ==
LOC: JER 06:56 → JERBED 11:29 → JICU 18:56 → J4W 04-17 16:48 → J8W 04-17 16:49
PROVIDERS: ADMIT Family Medicine; ATTEND Family Medicine
DX: A41.9 Sepsis, unspecified organism (principal); J18.9 Pneumonia, unspecified organism; J96.21 Acute and chronic respiratory failure with hypoxia; J96.22 Acute and chronic respiratory failure with hypercapnia; J44.1 Chronic obstructive pulmonary disease with (acute) exacerbation; I48.91 Unspecified atrial fibrillation; N40.0 Benign prostatic hyperplasia without lower urinary tract symptoms; I10 Essential (primary) hypertension; I27.20 Pulmonary hypertension, unspecified; I48.0 Paroxysmal atrial fibrillation; L89.151 Pressure ulcer of sacral region, stage 1; N13.9 Obstructive and reflux uropathy, unspecified; I25.10 Atherosclerotic heart disease of native coronary artery without angina pectoris; Z22.322 Carrier or suspected carrier of Methicillin resistant Staphylococcus aureus; Z87.891 Personal history of nicotine dependence; Z99.81 Dependence on supplemental oxygen; Z96.641 Presence of right artificial hip joint; Z95.0 Presence of cardiac pacemaker; W18.30XA Fall on same level, unspecified, initial encounter; Y92.098 Other place in other non-institutional residence as the place of occurrence of the external cause
CPT/HCPCS: 36415; 36600; 70450-TC; 71045-TC-FY; 71046-TC-FY; 80048; 80053; 81003; 81015; 82040; 82550; 82803; 82962; 83605; 83735; 84100; 84484; 85025; 85027; 85610; 85730; 87040; 87070; 87086; 87186; 87205; 87899; 93005; 93010; 94640; 94660; 97116-GP; 97161-GP; 99285-25; G0480; J7620

== ENCOUNTER 2018-08-21 10:22 | Inpatient (IN) | payer OTHER, MEDICARE ==
--- NOTE | 2018-08-21 11:05 | PDOC ---
History of Present Illness - General History Source: Patient Exam Limitations: No Limitations - History of Present Illness Initial Comments: 08/21/18 11:03 73 w/ PMHx. of COPD(not on home O2), A. Fib (on Eliquis), HTN and BPH presents with coughing yellow and white productive for about a week and shortness of breath and subjective fever since last night. The patient denies chest pain, abdominal pain, dysuria, hematuria or headaches. The patient noted that he often coughs but was concerned because he had shortness of breath. Patient w/ R lower lobe pneumonia and fall in Mar 2018. No other complaints 08/21/18 12:40 <Екатерина Spann - Last Filed: 08/21/18 13:27> <Laney Ruffin - Last Filed: 08/21/18 13:37> - General Chief Complaint: Shortness of Breath Stated Complaint: COPD,FALL Time Seen by Provider: 08/21/18 10:46 Past History - Past Medical History Anemia: No Cardiac Disorders: Yes (A-fib) COPD: Yes Disorders: Yes (BPH) HTN: Yes - Surgical History Abdominal Surgery: Yes (hernia) GI Surgery: No Lung Surgery: No Orthopedic Surgery: Yes (rt hip replacement) - Immunization History Immunization Up to Date: No - Suicide/Smoking/Psychosocial Hx Smoking History: Never smoked Have you smoked in the past 12 months: No Hx Alcohol Use: No Drug/Substance Use Hx: No Substance Use Type: None Hx Substance Use Treatment: No <Екатерина Spann - Last Filed: 08/21/18 13:27> <Laney Ruffin - Last Filed: 08/21/18 13:37> - Past Medical History Allergies/Adverse Reactions: Allergies Allergy/AdvReac Type Severity Reaction Status Date / Time No Known Allergies Allergy Verified 04/15/18 07:03 Home Medications: Ambulatory Orders Alprazolam [Xanax] 1 mg PO QID 03/06/18 Atenolol [Tenormin -] 50 mg PO DAILY 03/06/18 Folic Acid 1 mg PO DAILY 03/06/18 Clopidogrel Bisulfate [Plavix -] 75 mg PO DAILY 03/07/18 Albuterol 2.5/Ipratropium 0.5 [Duoneb -] 1 vial NEB QID PRN 03/09/18 Mineral Oil/Pet Hy-Phl [Aquaphor -] 1 applic TP BID jar 03/11/18 Prednisone See Taper PO DAILY #42 tablet 03/11/18 Budesonide/Formeterol Fumarate [SYMBICORT 80/4.5mcg -] 2 puff IH BID inhaler Diltiazem Cd [Cardizem Cd -] 120 mg PO DAILY #30 cap.cd.24h 03/19/18 Docusate Sodium [Colace -] 300 mg PO HS capsule 03/19/18 Polyethylene Glycol 3350 [Miralax 119 gm Btl -] 17 gm PO DAILY bottle 03/19/18 predniSONE [Deltasone -] 20 mg PO DAILY tablet 03/19/18 Albuterol 0.083% Nebulizer Verna [Ventolin 0.083% Nebulizer Soln -] 1 amp NEB Q8H PRN amp 04/23/18 Albuterol 2.5/Ipratropium 0.5 [Duoneb -] 1 amp NEB RQID 30 Days #120 amp Apixaban [Eliquis] 5 mg PO BID 30 Days #60 tablet 04/23/18 Tamsulosin HCl [Flomax -] 0.8 mg PO DAILY@0830 30 Days #60 cap.er.24h 04/23/18 predniSONE [Deltasone -] 40 mg PO DAILY tablet 04/23/18 predniSONE [Deltasone -] See Taper PO DAILY 28 Days #60 tablet 04/23/18 Review of Systems - Review of Systems Able to Perform ROS?: Yes Is the patient limited Citizen [place] proficient: No Constitutional: Yes: Fever. No: Chills, Diaphoresis HEENTM: No: Blurred Vision, Tinnitus Respiratory: Yes: Cough, Shortness of Breath, SOB at Rest, Productive cough. No : Wheezing Cardiac (ROS): No: Chest Pain, Lightheadedness, Palpitations ABD/GI: No: Constipated, Diarrhea, Nausea, Vomiting : No: Burning, Dysuria, Incontinence Neurological: No: Headache, Numbness, Tingling Endocrine: No: Excessive Sweating <Екатерина Spann - Last Filed: 08/21/18 13:27> *Physical Exam - Physical Exam Comments: 08/21/18 12:02 GENERAL: Awake, alert, and fully oriented, on NRB, using accessory muscles to breath HEAD: No signs of trauma, normocephalic, atraumatic EYES: EOMI, sclera anicteric, conjunctiva clear ENT: oropharynx clear without exudates, slight erythema, Moist mucosa NECK: Normal ROM, supple, no lymphadenopathy, JVD, or masses LUNGS: decreased breath sounds bilaterally HEART: Regular rate and rhythm, normal S1 and S2, no murmurs, rubs or gallops, peripheral pulses normal and equal bilaterally. ABDOMEN: Soft, nontender, normoactive bowel sounds. No guarding, no rebound. No masses. Using abdominal muscles for breathing EXTREMITIES : Normal inspection, Normal range of motion, no edema. No clubbing or cyanosis. NEUROLOGICAL: Cranial nerves II through XII grossly intact. Normal speech, no focal sensorimotor deficits SKIN: Dry flaky skin, normal turgor, no rashes or lesions noted <Екатерина Spann - Last Filed: 08/21/18 13:27> - Vital Signs Last Vital Signs Temp Pulse Resp BP Pulse Ox 103 F H 76 16 109/60 99 08/21/18 13:22 08/21/18 13:22 08/21/18 13:22 08/21/18 13:22 08/21/18 13:22 <Laney Ruffin - Last Filed: 08/21/18 13:37> Moderate Sedation - Procedure Monitoring Vital Signs: Procedure Monitoring Vital Signs Temperature 103 F H 08/21/18 13:22 Pulse Rate 76 08/21/18 13:22 Respiratory Rate 16 08/21/18 13:22 Blood Pressure 109/60 08/21/18 13:22 O2 Sat by Pulse Oximetry (%) 99 08/21/18 13:22 <Laney Ruffin - Last Filed: 08/21/18 13:37> ED Treatment Course - LABORATORY CBC & Chemistry Diagram: 08/21/18 11:24 08/21/18 11:24 - RADIOLOGY Radiology Studies Ordered: Category Date Time Status CXRPORT [CHEST X-RAY PORTABLE*] [RAD] Stat Radiology 08/21/18 11:01 Ordered <Екатерина Spann - Last Filed: 08/21/18 13:27> - LABORATORY CBC & Chemistry Diagram: 08/21/18 11:24 08/21/18 11:24 - ADDITIONAL ORDERS Additional order review: Laboratory Results 08/21/18 08/21/18 08/21/18 12:20 11:30 11:25 PT with INR INR PTT (Actin FS) Anticoagulation Therapy No Result Required. Puncture Site Right radial ABG pH 7.36 ABG pCO2 at Pt Temp 47.3 H D ABG pO2 at Pt Temp 149.0 H D ABG HCO3 25.8 ABG O2 Sat (Measured) 99.1 H ABG O2 Content 14.1 L ABG Base Excess 0.6 [place] Test Positive VBG pH 7.32 POC VBG pCO2 59.5 H POC VBG pO2 29.2 Mixed VBG HCO3 29.7 H Carboxyhemoglobin 1.3 Methemoglobin 0.0 L O2 Delivery Device No Result Required. Oxygen Flow Rate Yes Vent Mode No Result Required. Vent Rate No Result Required. Mechanical Rate No Result Required. Pressure Support Vent No Result Required. Sodium Potassium Chloride Carbon Dioxide Anion Gap BUN Creatinine Creat Clearance w eGFR Random Glucose Lactic Acid 2.1 H Calcium Total Bilirubin AST ALT Alkaline Phosphatase Troponin I Total Protein Albumin 08/21/18 08/21/18 11:24 11:24 PT with INR 18.60 H INR 1.57 H PTT (Actin FS) 32.5 Anticoagulation Therapy Puncture Site ABG pH ABG pCO2 at Pt Temp ABG pO2 at Pt Temp ABG HCO3 ABG O2 Sat (Measured) ABG O2 Content ABG Base Excess [place] Test VBG pH POC VBG pCO2 POC VBG pO2 Mixed VBG HCO3 Carboxyhemoglobin Methemoglobin O2 Delivery Device Oxygen Flow Rate Vent Mode Vent Rate Mechanical Rate Pressure Support Vent Sodium 133 L Potassium 4.1 Chloride 96 L Carbon Dioxide 30 Anion Gap 7 L BUN 11 Creatinine 0.6 Creat Clearance w eGFR > 60 Random Glucose 139 H Lactic Acid Calcium 7.9 L Total Bilirubin 0.5 AST 20 ALT 9 L Alkaline Phosphatase 72 Troponin I 0.24 H Total Protein 7.7 Albumin 2.6 L 08/21/18 11:24 RBC 4.41 MCV 83.2 MCHC 33.3 RDW 15.4 MPV 8.7 D Neutrophils % 90.7 H Lymphocytes % 2.0 L D Monocytes % 6.2 Eosinophils % 0.0 D Basophils % 1.1 D - Medications Given in the ED: ED Medications Discontinued Medications Generic Name Dose Route Start Last Admin Trade Name Freq PRN Reason Stop Dose Admin Acetaminophen 1,000 mg 08/21/18 11:30 08/21/18 11:50 Ofirmev Injection - IVPB 08/21/18 11:31 1,000 mg ONCE ONE Administration Albuterol/Ipratropium 1 amp 08/21/18 12:30 08/21/18 13:30 Duoneb - NEB 08/21/18 13:16 1 amp Q15M GE Administration Ceftriaxone Sodium 250 mg 08/21/18 11:54 08/21/18 12:31 Rocephin - IVPUSH 08/21/18 11:55 Not Given ONCE ONE Ceftriaxone Sodium 1,000 mg 08/21/18 11:59 08/21/18 12:33 Rocephin - IVPUSH 08/21/18 12:00 1,000 mg ONCE ONE Administration Doxycycline Hyclate 100 mg/ 100 mls @ 100 mls/hr 08/21/18 11:54 08/21/18 12: 33 Dextrose IVPB 08/21/18 12:53 100 mls/hr ONCE ONE Administration Methylprednisolone Sodium Succinate 125 mg 08/21/18 12:34 08/21/18 13:07 Solu-Medrol - IVPUSH 08/21/18 12:35 125 mg ONCE ONE Administration Sodium Chloride 1,000 ml 08/21/18 11:30 08/21/18 11:50 Normal Saline - IV 08/21/18 11:31 1,000 ml ONCE ONE Administration <Laney Ruffin - Last Filed: 08/21/18 13:37> Medical Decision Making - Medical Decision Making 08/21/18 12:04 73 w/ PMHx. of COPD(not on home O2), A. Fib (on Eliquis), HTN and BPH presents with coughing yellow and white productive for about a week and shortness of breath and subjective fever since last night. The patient denies chest pain, abdominal pain, dysuria, hematuria or headaches. The patient noted that he often coughs but was concerned because he had shortness of breath. ED Course: Patient with sepsis likely pulm source. consider pneumonia vs copd exacerbation r/o other infectious sources such as uti w/u including : cxr, cbc, cmp, blood cxs, ekg, ua, lactic bipap started due to increased work of breathing and increased oxygen requirement tylenol, ivf, ceftriaxone and doxycycline EKG: normal sinus rhythm HR 97, no interval abnormalities, narrow QRS, ST and T wave segments and morphology normal. CXR: postinflammatory changes in R lower lobe, midline airway, interstitial lung markings, no blunting of costophrenic angle, no cardiomegaly, as read by this scenario writer and attending. labwork w/ elevated troponin likely due to demand, as ekg without ischemic changes will admit patient, rpt trop <Екатерина Spann - Last Filed: 08/21/18 13:27> *DC/Admit/Observation/Transfer - Discharge Dispostion Decision to Admit order: Yes <Екатерина Spann - Last Filed: 08/21/18 13:27> - Discharge Dispostion Decision to Admit order: Yes Decision to Admit order Date/Time: 08/21/18 13:37 <Laney Ruffin - Last Filed: 08/21/18 13:37> Diagnosis at time of Disposition: COPD exacerbation Pneumonia Qualifiers: Pneumonia type: due to unspecified organism Laterality: right Lung location: lower lobe of lung Qualified Code(s): J18.1 - Lobar pneumonia, unspecified organism - Discharge Dispostion Condition at time of disposition: Fair Addendum entered and electronically signed by Laney Ruffin MD 08/23/18 07: 33:
[2018-08-21] MEDS ORDERED: ACETAMINOPHEN 1000 MG/100 ML VIAL (NON FORMULARY) IVPB ONE (11:30)
[2018-08-21] MEDS ORDERED: SODIUM CHLORIDE 0.9% 500 ML INFUS.BAG IV ONE (11:30)
[2018-08-21 11:49] LABS: VENOUS PC02 59.5 mmHg (38-52); VENOUS PH 7.32 (7.32-7.42)
[2018-08-21] MEDS ORDERED: ACETAMINOPHEN INJECTION 100 ML IVPB ONE (11:49)
[2018-08-21 11:50] LABS: VENOUS PO2 29.2 mmHg (28-48)
--- NOTE | 2018-08-21 11:51 | EKG ---
Test Reason : Blood Pressure : / mmHG Vent. Rate : 097 BPM Atrial Rate : 097 BPM P-R Int : 148 ms QRS Dur : 080 ms QT Int : 324 ms P-R-T Axes : 092 -28 066 degrees QTc Int : 411 ms SINUS RHYTHM WITH FUSION COMPLEXES LOW VOLTAGE QRS CANNOT RULE OUT ANTERIOR INFARCT (CITED ON OR BEFORE 15-APR-2018) ABNORMAL ECG WHEN COMPARED WITH ECG OF 15-APR-2018 09:25, FUSION COMPLEXES ARE NOW PRESENT QRS AXIS SHIFTED LEFT Confirmed by MIREILLE BERRIOS, PRAKASH ([id number]) on 08/21/2018 11:51:37 AM Referred By: Confirmed By:PRAKASH KENDRICK MD
[2018-08-21 11:52] LABS: BASO % 1.1 % (0-2.0); HEMATOCRIT 36.6 % (35.4-49); HEMOGLOBIN 12.2 GM/dL (11.7-16.9); MCH 27.7 pg (25.7-33.7); MCHC 33.3 g/dl (32.0-35.9); MEAN CELL VOLUME 83.2 fl (80-96); MEAN PLT VOLUME 8.7 fl (7.5-11.1); MONO % 6.2 % (3.8-10.2); NEUT % 90.7 % (42.8-82.8); PLATELET COUNT 235 K/MM3 (134-434); RBC 4.41 M/mm3 (4.00-5.60); RDW 15.4 % (11.9-15.9); WHITE BLOOD COUNT 13.5 K/mm3 (4.0-10.0)
[2018-08-21] MEDS ORDERED: DOXYCYCLINE INJECTION 100 MG in DEXTROSE 5%-WATER - 100 ML IVPB ONE (11:54)
[2018-08-21 12:02] LABS: INR 1.57 (0.83-1.09); PROTHROMBIN TIME (PATIENT) 18.6 SEC (9.7-13.0)
[2018-08-21 12:04] LABS: ACTIVATED PTT 32.5 SECONDS (25.2-36.5)
--- NOTE | 2018-08-21 12:17 | PDOC ---
Attending Attestation - Medical Decision Making 08/21/18 13:03 Phone call: Call placed to Dr. Michelle for admission (admits for Dr. Justyn Cordoba) at 12:33 and 12:55. Waiting for a call back. Case discussed with Dr. Michelle at 1:00 pm. The patient is admitted. 08/21/18 13:05 Documentation prepared by Lisy Napier, acting as medical transcription radiology for Laney Ruffin MD. <Lisy Napier - Last Filed: 08/21/18 13:03> - Resident Resident Name: Екатерина Spann - ED Attending Attestation I have performed the following: I have examined & evaluated the patient, The case was reviewed & discussed with the resident, I agree w/resident's findings & plan - HPI HPI: 08/21/18 11:56 Henneke A 73 y.o. M w/ PMHx. of COPD (not on home O2), A. Fib ( on Eliquis), HTN and BPH presenting with cough/congestion x 1 week, fever last night. Last admitted 03/2018 with respiratory failure 2/2 COPD and pneumonia/sepsis. +sick contact, with recent URI sx about several weeks ago. no travel history. no recent hospitalizations <3 months. PMD: Dr Cordoba 08/21/18 12:18 - Physicial Exam PE: 08/21/18 11:56 increased WOB, moderate respiratory distress. On bipap. PERRL, EOMI, MMM, nl conjunctiva, anicteric; neck supple. lungs with diminished breath sounds bilaterally. tachypneic. RRR, abdomen soft nontender. HAIR x4, no focal neuro deficits. No peripheral edema. normal color for ethnicity, [facility]. - Medical Decision Making 08/21/18 12:17 See HPI for details DDx. influenza, pneumonia, pleurisy, pleural effusion, ACS, myocarditis/ pericarditis. dehydration. acute respiratory failure. COPD exacerbation, bronchitis, sepsis. doubt PE or dissection with alternative etiology with infection/sepsis from respiratory etiology. Vital signs reviewed, febrile to 103. increased RR and sats >95%. placed on bipap for respiratory work of breathing. Prior notes reviewed, including admissions, discharges and consultations. laboratory results and imaging reviewed, basic labs and lytes wnl, notable for leukocytosis 13K, similar to prior, but lower; normal lytes. lactic borderline normal 2.1, recheck after gentle fluids. influenza neg. VBG normal pH, with mild CO2 retention without significant respiratory/ metabolic derangements. ABG confirmed to be normal. UA_pending CXR_right hilar infiltrative pattern, similar to prior CXR where his RLL pneumonia was noted. COPD appearance. Cardiac panel_+trop to 0.24, never elevated previously. likely demand ischemia from sepsis/infection, will trend. EKG normal sinus rhythm, no interval abnormalities, narrow QRS, ST and T wave segments and morphology normal. Nonspecific T wave abnormalities ED course: IVF, tylenol for fever. duonebs x3. steroids for COPD IV ceftriaxone and doxycycline for CAP coverage. no recent risk factors to indicate pseudomonas/MRSA. septic workup including blood/urine cultures. weaning off Bipap after 2 hours with appropriate response. dispo: admit to Dr Dominguez service, discussed care, treatment of pneumonia/ viral syndrome, +trops, acute respiratory failure 2/2 infection vs COPD. 08/21/18 13:35 08/21/18 13:36 <Laney Ruffin - Last Filed: 08/21/18 13:37> Procedures - Bedside Ultrasound Bedside Ultrasound: Lung Remarks: 08/21/18 12:20 POCUS echo and thoracic exam performed, indication includes dyspnea. views obtained (PSLA, PSS, A4, SX, IVC, bilateral lung vann). Findings include normal EF, no pericardial or pleural effusion, primarily A lines with intermittent B lines in the bases <3 in one lung field at a time., bilateral lung sliding noted, no air bronchograms or consolidation, normal IVC with distension on inspiration 2/2 Bipap. RV>LV with prominent trabeculae and moderator bands. Impression: dilated RV with suspected chronic pulmonary HTN / COPD history, dry lungs, otherwise no acute findings. <Laney Ruffin - Last Filed: 08/21/18 13:37>
[2018-08-21 12:22] LABS: ALBUMIN 2.6 g/dl (3.4-5.0); ALK PHOS 72 U/L (45-117); ANION GAP 7 MMOL/L (8-16); BILIRUBIN,TOTAL 0.5 mg/dL (0.2-1); BLOOD UREA NITROGEN 11 mg/dL (7-18); CALCIUM 7.9 mg/dL (8.5-10.1); CHLORIDE 96 mmol/L (98-107); CO2 30 mmol/L (21-32); CREATININE 0.6 mg/dL (0.55-1.3); GLUCOSE,RANDOM 139 mg/dL (74-106); POTASSIUM 4.1 mmol/L (3.5-5.1); SGOT/AST 20 U/L (15-37); SGPT/ALT 9 U/L (13-61); SODIUM 133 mmol/L (136-145); TOT PROT 7.7 g/dl (6.4-8.2)
[2018-08-21] MEDS ORDERED: ALBUTEROL SO4 2.5/IPRATROPIUM 0.5 INH SOL 3 ML VIAL.NEB. NEB ONE ×2 (12:32→20:17)
[2018-08-21] MEDS ORDERED: CEFTRIAXONE 1 GM/50 ML BAG ONE (12:32)
[2018-08-21] MEDS ORDERED: DOXYCYCLINE HYCLATE 100 MG VIAL ONE (12:32)
[2018-08-21] MEDS: ALBUTEROL SO4 2.5/IPRATROPIUM 0.5 INH SOL 3 ML VIAL.NEB. NEB SCH ×6 (12:33→20:41)
[2018-08-21] MEDS ORDERED: methylPREDNISolone NA SUCC 125 MG/2 ML VIAL IVPUSH ONE (12:34)
[2018-08-21 12:35] LABS: ARTERIAL BLD GAS O2 SATURATION 99.1 % (90-98.9); ARTERIAL BLOOD GAS BASE EXCESS 0.6 meq/l (-2-2); ARTERIAL BLOOD GAS PCO2 47.3 mmHg (35-45); ARTERIAL BLOOD GAS pH 7.36 (7.35-7.45); CARBOXYHEMOGLOBIN 1.3 gm% (0.5-2.0)
[2018-08-21 12:36] LABS: ALLENS TEST POSITIVE
[2018-08-21] MEDS ORDERED: methylPREDNISolone NA SUCC 125 MG/2 ML VIAL ONE (13:07)
[2018-08-21] MEDS ORDERED: ATENOLOL 25 MG TABLET (FP) ONE (13:50)
[2018-08-21] MEDS ORDERED: PANTOPRAZOLE 40 MG TABLET (FP) ONE (13:50)
[2018-08-21] MEDS ORDERED: APIXABAN 5 MG TABLET PO ONE (13:51)
[2018-08-21] MEDS: APIXABAN 5 MG TABLET PO SCH ×3 (13:51→23:55)
[2018-08-21] MEDS: PANTOPRAZOLE 40 MG TABLET (FP) PO SCH (13:51)
[2018-08-21] MEDS ORDERED: PATIENT'S OWN MEDICATION (NON-FORMULARY) (Alprazolam [Xanax] 1 MG) PO SCH (14:00)
[2018-08-21] MEDS: methylPREDNISolone NA SUCC 40 MG/1 ML VIAL IVPUSH SCH ×2 (14:39→23:56)
[2018-08-21] MEDS: ATENOLOL 50 MG TABLET (FP) PO SCH (14:39)
[2018-08-21] MEDS: POLYETHYLENE GLYCOL 3350 119 GM BTL PO SCH (14:39)
--- NOTE | 2018-08-21 16:47 | PN ---
Progress Note (short form) - Note Progress Note: PULMONARY CONSULTATION DICTATED 08/21/18 IMP ACUTE ON CHRONIC HYPOXEMIC/HYPERCAPNEIC RESPIRATORY FAILURE PNEUMONIA COPD EXACERBATION HTN BPH AFIB PLAN IV ABX INHALED BRONCHODILATORS O2 STEROIDS NIPPV IF PT DEVELOPES INCREASED RESPIRATORY DISTRESS CULTURES CHEST CT INFLUENZA SCREEN LEGIONELLA URINARY ANTIGEN WILMER COREAS Problem List - Problems (1) COPD exacerbation Code(s): J44.1 - CHRONIC OBSTRUCTIVE PULMONARY DISEASE W (ACUTE) EXACERBATION (2) Pneumonia Code(s): J18.9 - PNEUMONIA, UNSPECIFIED ORGANISM Qualifiers: Pneumonia type: due to unspecified organism Laterality: right Lung location: lower lobe of lung Qualified Code(s): J18.1 - Lobar pneumonia, unspecified organism (3) Respiratory failure with hypoxia and hypercapnia Code(s): J96.91 - RESPIRATORY FAILURE, UNSPECIFIED WITH HYPOXIA; J96.92 - RESPIRATORY FAILURE, UNSPECIFIED WITH HYPERCAPNIA (4) Atrial fibrillation Code(s): I48.91 - UNSPECIFIED ATRIAL FIBRILLATION Qualifiers: (5) Coronary artery disease Code(s): I25.10 - ATHSCL HEART DISEASE OF [place] CORONARY ARTERY W/O ANG PCTRS Qualifiers: (6) Emphysema of lung Code(s): J43.9 - EMPHYSEMA, UNSPECIFIED (7) Acute on chronic respiratory failure with hypoxia and hypercapnia Code(s): J96.21 - ACUTE AND CHRONIC RESPIRATORY FAILURE WITH HYPOXIA; J96.22 - ACUTE AND CHRONIC RESPIRATORY FAILURE WITH HYPERCAPNIA
--- NOTE | 2018-08-21 17:19 | CONS ---
DATE OF CONSULTATION: 08/21/2018 PULMONARY CONSULTATION REFERRING PHYSICIAN: Georgina Michelle M.D. HISTORY OF PRESENT ILLNESS: The patient is a 73-year-old white male with a past medical history of COPD, not on home O2, atrial fibrillation on Eliquis, hypertension, BPH, admitted to [facility] with complaint of 1 -week history of increasing shortness of breath, cough productive of yellow white sputum and intermittent fevers since last night. The patient denies any complaint of chest pain, nausea, vomiting, diaphoresis. Patient states last night started developing chills and took his temperature at home it was 103. He went to the emergency room with above. In the ER, he was started on inhaled bronchodilators and IV antibiotics. Of note, the patient was hospitalized in March secondary to pneumonia. Patient has history of tobacco use, quit years ago. There is no history of occupational exposure to chemicals or fumes. He states there is no weight loss or night sweats. There is no hemoptysis. PAST MEDICAL HISTORY: Again includes COPD, atrial fibrillation, hypertension, BPH. REVIEW OF SYSTEMS: Positive for shortness of breath. Positive cough. Positive sputum. Positive fever. Positive chills. No abdominal pain. No nausea. No vomiting. CURRENT MEDICATIONS: Include Mucinex, Plavix, Protonix, folic acid, Colace, Cardizem, Tenormin, DuoNeb, Xanax, Eliquis, ceftriaxone, Zithromax, Flomax, Solu-Medrol. PHYSICAL EXAMINATION: GENERAL: The patient is a thin male, well, awake, alert, in no acute distress. He is afebrile. T-max 100.8. VITAL SIGNS: Blood pressure 106/55, respiratory rate 16, O2 saturation 98% on Ventimask. HEENT: Normocephalic, atraumatic. NECK: Supple. HEART: Irregularly irregular S1, S2. CHEST: Bilateral crackles and wheezes. ABDOMEN: Soft, bowel sounds positive. EXTREMITIES: No cyanosis, edema. LABORATORY: WBC 13.5, hemoglobin 12.2, hematocrit 36.6 with a platelet count of 235,000. INR is 1.57. Blood gas: pH 7.47, pCO2 of 47, pO2 of 149, bicarbonate 25, saturation 99, that was on unknown quantity of oxygen. He had a venous blood gas prior to that which was 7.32, pCO2 of 59, pO2 of 29, bicarbonate 27. Chest x-ray, increased markings bilaterally, possible RLL infiltrate. IMPRESSION: Acute hypercapnic, hypoxemic respiratory failure likely secondary to: 1. Advanced chronic obstructive pulmonary disease with acute exacerbation. 2. Pneumonia. 3. Atrial fibrillation. 4. Hypertension. 5. Benign prostatic hypertrophy. PLAN: IV antibiotics. Inhaled bronchodilators. Steroids. Supplemental O2. BiPAP if patient should develop increasing respiratory distress, progressive hypercapnia, hypoxemia. Obtain followup chest x-ray as well as CT scan of the chest, continue anticoagulation, obtain cultures, influenza screen. AGUSITN COREAS M.D. ANDERSON/[id number] MTDD
[2018-08-21] MEDS: ALPRAZolam 2 MG TABLET PO SCH ×2 (18:23→23:56)
[2018-08-21 19:02] LABS: URINE APPEARANCE CLOUDY; URINE BILIRUBIN NEGATIVE (<2.0 mg/dL); URINE COLOR AMBER; URINE GLUCOSE (UA) NEGATIVE (NEGATIVE); URINE KETONE NEGATIVE (NEGATIVE); URINE LEUK ESTERASE 2+ (NEGATIVE); URINE NITRITE NEGATIVE (NEGATIVE); URINE PROTEIN NEGATIVE (NEGATIVE)
[2018-08-21 19:09] LABS: URINE BACTERIA RARE /hpf (NONE SEEN); URINE HYALINE CAST 3 /lpf; URINE MUCUS RARE; YEAST FEW
[2018-08-21] MEDS: guaiFENesin 600 MG TABLET.ER (FP) PO SCH (23:55)
[2018-08-21] MEDS: DOCUSATE SODIUM 100 MG CAPSULE (FP) PO SCH (23:55)
[2018-08-21] MEDS: BUDESONIDE/FORMETEROL FUMARATE 80/4.5 mcg INHALER IH SCH (23:56)
[2018-08-21] MEDS: MINERAL OIL/PET HY-PHL TOPICAL OINTMENT 454 GM JAR TP SCH (23:56)
[2018-08-22] MEDS: methylPREDNISolone NA SUCC 40 MG/1 ML VIAL IVPUSH SCH ×3 (05:35→22:54)
[2018-08-22 07:23] LABS: BASO % 0.3 % (0-2.0); HEMATOCRIT 34.5 % (35.4-49); HEMOGLOBIN 11.6 GM/dL (11.7-16.9); LYMPH % 9.5 % (8-40); MCH 27.6 pg (25.7-33.7); MCHC 33.6 g/dl (32.0-35.9); MEAN PLT VOLUME 8.6 fl (7.5-11.1); MONO % 3.1 % (3.8-10.2); NEUT % 87.1 % (42.8-82.8); PLATELET COUNT 209 K/MM3 (134-434); RDW 15.3 % (11.9-15.9); WHITE BLOOD COUNT 4.4 K/mm3 (4.0-10.0)
[2018-08-22] MEDS: ALBUTEROL SO4 2.5/IPRATROPIUM 0.5 INH SOL 3 ML VIAL.NEB. NEB SCH ×4 (08:09→19:29)
[2018-08-22 08:11] LABS: ANION GAP 9 MMOL/L (8-16); BLOOD UREA NITROGEN 12 mg/dL (7-18); CALCIUM 7.9 mg/dL (8.5-10.1); CHLORIDE 100 mmol/L (98-107); CO2 25 mmol/L (21-32); CREATININE 0.5 mg/dL (0.55-1.3); GLUCOSE,RANDOM 131 mg/dL (74-106); POTASSIUM 4.5 mmol/L (3.5-5.1); SODIUM 134 mmol/L (136-145)
[2018-08-22] MEDS: TAMSULOSIN HCL 0.4 MG CAP PO SCH (09:55)
[2018-08-22] MEDS ORDERED: DEXTROSE 5%-WATER - 50 ML IVPB ONE (09:59)
[2018-08-22] MEDS ORDERED: cefTRIAXone SODIUM 1 GM VIAL ONE (09:59)
[2018-08-22] MEDS ORDERED: PT OWN MED DRAWER 7, Y5N ONE ×4 (10:05→21:18)
[2018-08-22] MEDS: APIXABAN 5 MG TABLET PO SCH ×2 (10:12→22:54)
[2018-08-22] MEDS: ATENOLOL 50 MG TABLET (FP) PO SCH (10:12)
[2018-08-22] MEDS: guaiFENesin 600 MG TABLET.ER (FP) PO SCH ×2 (10:12→22:54)
[2018-08-22] MEDS: FOLIC ACID 1 MG TABLET (FP) PO SCH (10:12)
[2018-08-22] MEDS: CLOPIDOGREL BISULFATE 75 MG TABLET (FP) PO SCH (10:12)
[2018-08-22] MEDS: ALPRAZolam 2 MG TABLET PO SCH ×4 (10:12→22:55)
[2018-08-22] MEDS: AZITHROMYCIN IVPB 500 MG/250 ML BAG IVPB SCH (10:14)
[2018-08-22] MEDS: PANTOPRAZOLE 40 MG TABLET (FP) PO SCH (10:16)
[2018-08-22] MEDS: POLYETHYLENE GLYCOL 3350 119 GM BTL PO SCH (10:18)
--- NOTE | 2018-08-22 11:42 | PN ---
Progress Note (short form) - Note Progress Note: PULMONARY AWAKE/ALERT APPEARS STABLE VSS ANICTERIC/PALE EXP MILD WHEEZE BILATERAL ANTERIOR S1S2 BS+ NO EDEMA LABS/MEDS/NOTES/IMAGES REVIEWED CT NOTED BUMP IN TROPONIN IMP ACUTE ON CHRONIC HYPOXEMIC/HYPERCAPNEIC RESPIRATORY FAILURE PNEUMONIA COPD EXACERBATION HTN BPH AFIB ELEVATED TROP PLAN IV ABX INHALED BRONCHODILATORS O2 STEROIDS NIPPV IF PT DEVELOPES INCREASED RESPIRATORY DISTRESS CULTURES INFLUENZA SCREEN NEGATIVE LEGIONELLA URINARY ANTIGEN PENDING ELIQUIS SUGGEST CARDIO F/U AND EKG R DIOGENES BERRIOS
[2018-08-22] MEDS: CEFTRIAXONE 1 GM in DEXTROSE 5%-WATER - 50 ML IVPB SCH (11:47)
[2018-08-22] MEDS: MINERAL OIL/PET HY-PHL TOPICAL OINTMENT 454 GM JAR TP SCH ×2 (12:41→22:52)
[2018-08-22] MEDS: BUDESONIDE/FORMETEROL FUMARATE 80/4.5 mcg INHALER IH SCH ×2 (12:43→23:13)
--- NOTE | 2018-08-22 14:34 | PN ---
Progress Note (short form) - Note Progress Note: ID CONSULT DICTATED BIBASILAR PNEUMONIA EXACERBATION COPD HX + SPUTUM MRSA AWAIT C/S CONTINUE EMPIRIC CEFTRIAXONE/ ZITHROMAX
--- NOTE | 2018-08-22 14:51 | HP ---
Admitting History and Physical - Admission History of Present Illness: Henry Atkinson 73 y.o. M w/ PMHx. of COPD (not on home O2), A. Fib ( on Eliquis), HTN and BPH presenting with cough/congestion x 1 week, fever last night. Last admitted 03/2018 with respiratory failure 2/2 COPD and pneumonia/sepsis. +sick contact, with recent URI sx about several weeks ago. no travel history. no recent hospitalizations <3 months. patient with previous hospital stay for SOB - AE COPD -- requiring extensive steroids -- has not required O2 at home --- [place] admitted for further treatment and will evaluate for O2 at home. History Source: Patient, Medical Record Limitations to Obtaining History: Poor Historian - Past Medical History Cardiovascular: Yes: AFIB, HTN Pulmonary: Yes: Bronchitis, COPD, O2 Dependent, Pneumonia Dermatology: Yes: Other (B/L feet scars/ scratches) - Past Surgical History Past Surgical History: Yes: Appendectomy, Hernia Repair, Permanent Pacemaker - Smoking History Smoking history: Former smoker Have you smoked in the past 12 months: No If you are a former smoker, when did you quit?: 1979 - Alcohol/Substance Use Hx Alcohol Use: No - Social History Usual Living Arrangement: Yes: With Spouse History of Recent Travel: No Home Medications - Allergies Allergies/Adverse Reactions: Allergies Allergy/AdvReac Type Severity Reaction Status Date / Time No Known Allergies Allergy Verified 04/15/18 07:03 - Home Medications Home Medications: Ambulatory Orders Alprazolam [Xanax] 1 mg PO QID 03/06/18 Atenolol [Tenormin -] 50 mg PO DAILY 03/06/18 Folic Acid 1 mg PO DAILY 03/06/18 Albuterol 2.5/Ipratropium 0.5 [Duoneb -] 1 vial NEB QID PRN 03/09/18 Mineral Oil/Pet Hy-Phl [Aquaphor -] 1 applic TP BID jar 03/11/18 Budesonide/Formeterol Fumarate [SYMBICORT 80/4.5mcg -] 2 puff IH BID inhaler Diltiazem Cd [Cardizem Cd -] 120 mg PO DAILY #30 cap.cd.24h 03/19/18 Docusate Sodium [Colace -] 300 mg PO HS capsule 03/19/18 Albuterol 0.083% Nebulizer Verna [Ventolin 0.083% Nebulizer Soln -] 1 amp NEB Q8H PRN amp 04/23/18 Albuterol 2.5/Ipratropium 0.5 [Duoneb -] 1 amp NEB RQID 30 Days #120 amp Apixaban [Eliquis] 5 mg PO BID 30 Days #60 tablet 04/23/18 Tamsulosin HCl [Flomax -] 0.8 mg PO DAILY@0830 30 Days #60 cap.er.24h 04/23/18 Review of Systems - Review of Systems Constitutional: reports: Chills, Fever Eyes: reports: No Symptoms HENT: reports: No Symptoms Neck: reports: No Symptoms Cardiovascular: reports: Shortness of Breath Respiratory: reports: Cough, SOB on Exertion, Wheezing Gastrointestinal: reports: No Symptoms Genitourinary: reports: No Symptoms Breasts: reports: No Symptoms Reported Musculoskeletal: reports: Back Pain Integumentary: reports: No Symptoms Neurological: reports: Confusion, Pre-Existing Deficit Endocrine: reports: No Symptoms Hematology/Lymphatic: reports: No Symptoms Psychiatric: reports: No Symptoms, Anxiety, Depression Physical Examination Vital Signs: Vital Signs Temperature 97.6 F 08/22/18 10:00 Pulse Rate 62 08/22/18 10:00 Respiratory Rate 20 08/22/18 10:00 Blood Pressure 120/56 L 08/22/18 10:00 O2 Sat by Pulse Oximetry (%) 96 08/22/18 08:08 Constitutional: Yes: Cachectic, Moderate Distress, Thin Eyes: Yes: Conjunctiva Clear, EOM Intact HENT: Yes: Atraumatic, Normocephalic Neck: Yes: Trachea Midline Cardiovascular: Yes: Pulse Irregular Respiratory: Yes: Accessory Muscle Use, Cough, Diminished Gastrointestinal: Yes: Normal Bowel Sounds, Soft ...Rectal Exam: Yes: Deferred Renal/: Yes: WNL Breast(s): Yes: WNL Musculoskeletal: Yes: Muscle Weakness Extremities: No: Cold, Cyanosis, Deformity Edema: Yes Edema: LLE: 1+, RLE: 1+ Peripheral Pulses WNL: Yes Integumentary: Yes: WNL Neurological: Yes: Alert, Oriented, Pre-Existing Deficit Psychiatric: Yes: Alert, Oriented Labs: CBC, BMP 08/22/18 06:30 08/22/18 06:30 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 Code(s): Z22.322 - CARRIER OR SUSPECTED CARRIER OF METHICILLIN RESIS STAPH (5) Respiratory failure with hypoxia and hypercapnia Code(s): J96.91 - RESPIRATORY FAILURE, UNSPECIFIED WITH HYPOXIA; J96.92 - RESPIRATORY FAILURE, UNSPECIFIED WITH HYPERCAPNIA (6) Atrial fibrillation Code(s): I48.91 - UNSPECIFIED ATRIAL FIBRILLATION Qualifiers: (7) Coronary artery disease Code(s): I25.10 - ATHSCL HEART DISEASE OF [place] CORONARY ARTERY W/O ANG PCTRS Qualifiers: (8) Emphysema of lung Code(s): J43.9 - EMPHYSEMA, UNSPECIFIED (9) HTN (hypertension) Code(s): I10 - ESSENTIAL (PRIMARY) HYPERTENSION Qualifiers: Hypertension type: essential hypertension Qualified Code(s): I10 - Essential (primary) hypertension
--- NOTE | 2018-08-22 15:19 | CONS ---
DATE OF CONSULTATION: 08/22/2018 HISTORY OF PRESENT ILLNESS: The patient is a 73-year-old male who is being evaluated for pneumonia. The patient was admitted to the hospital on August 21, 2018. He presented with a one-week history of cough productive of yellowish sputum and a one-day history of worsening shortness of breath and fever. He presented to the emergency room where a CAT scan of the chest revealed bibasilar consolidations. Cultures were obtained and he was empirically treated with Zithromax and ceftriaxone. The patient does not give a reliable history. According to the notes, he had been in contact with his , who had a respiratory tract illness. He was hospitalized in March 2018 for pneumonia. At that time, a sputum culture was positive for MRSA. He denies any chest pain. He has no complaints of hemoptysis. The patient is a former smoker; he states he stopped years ago. He reports receiving influenza and pneumococcal vaccines. No recent travel. PAST MEDICAL HISTORY: Positive for COPD, atrial fibrillation, hypertension, BPH. ALLERGIES: No known drug allergies. CURRENT MEDICATIONS: Tylenol, albuterol, Xanax, Eliquis, Tenormin, Zithromax, ceftriaxone, Plavix, Cardizem, Colace, methylprednisolone, Protonix and Flomax. SOCIAL HISTORY: He lives at home with his significant other. He is a former smoker. No current alcohol use. REVIEW OF SYSTEMS: Neurologic: No loss of consciousness, seizure activity or focal weakness. Cardiac: Negative for chest pain or palpitations. Respiratory: As per HPI. Gastrointestinal: Negative for vomiting or diarrhea. Genitourinary: Negative for urinary tract infection. LABORATORY DATA: On admission, white count 13.5, currently 4.4. Hematocrit 34.5, platelet count 209, creatinine 0.5. Urinalysis shows 395 white cells. Influenza swab is negative. PHYSICAL EXAMINATION: General: The patient is awake. He is seated in bed. He is in no acute distress. Vital Signs: Temperature 97.6. T-max is 103. Blood pressure 112/66, pulse 71 and regular, respiratory rate 20 per minute. HEENT:: Sclerae anicteric. Heart: Heart sounds S1, S2. Lungs: His breathing is unlabored on nasal cannula O2. He has a few crepitations at the bases bilaterally. Abdomen: Soft. No tenderness was elicited. No mass, rebound or rigidity. Extremities: Negative for edema. Negative Tan sign. IMPRESSION: 1. Community-acquired vs. atypical bibasilar pneumonia. 2. Acute exacerbation of COPD. 3. History of positive sputum culture for methicillin-resistant Staphylococcus aureus. PLAN: 1. Await cultures. 2. Continue empiric ceftriaxone and Zithromax. 3. Continue bronchodilators and intravenous corticosteroids. 4. Will follow Thank you for the kind referral. CAM BRENNAN M.D. [id number]
[2018-08-22] MEDS: DOCUSATE SODIUM 100 MG CAPSULE (FP) PO SCH (22:54)
[2018-08-23] MEDS: methylPREDNISolone NA SUCC 40 MG/1 ML VIAL IVPUSH SCH ×3 (05:44→21:14)
[2018-08-23] MEDS: ALBUTEROL SO4 2.5/IPRATROPIUM 0.5 INH SOL 3 ML VIAL.NEB. NEB SCH ×4 (08:19→20:20)
[2018-08-23] MEDS: TAMSULOSIN HCL 0.4 MG CAP PO SCH (08:51)
[2018-08-23] MEDS ORDERED: cefTRIAXone SODIUM 1 GM VIAL ONE (09:28)
[2018-08-23] MEDS ORDERED: DEXTROSE 5%-WATER - 50 ML IVPB ONE (09:29)
[2018-08-23] MEDS: AZITHROMYCIN IVPB 500 MG/250 ML BAG IVPB SCH (09:36)
[2018-08-23] MEDS: CEFTRIAXONE 1 GM in DEXTROSE 5%-WATER - 50 ML IVPB SCH (09:36)
[2018-08-23] MEDS: MINERAL OIL/PET HY-PHL TOPICAL OINTMENT 454 GM JAR TP SCH ×2 (09:37→22:15)
[2018-08-23] MEDS: ALPRAZolam 2 MG TABLET PO SCH ×4 (09:37→21:15)
[2018-08-23] MEDS: APIXABAN 5 MG TABLET PO SCH ×2 (09:37→21:14)
[2018-08-23] MEDS: BUDESONIDE/FORMETEROL FUMARATE 80/4.5 mcg INHALER IH SCH ×2 (09:37→21:15)
[2018-08-23] MEDS: ATENOLOL 50 MG TABLET (FP) PO SCH (09:37)
[2018-08-23] MEDS: guaiFENesin 600 MG TABLET.ER (FP) PO SCH ×2 (09:37→21:14)
[2018-08-23] MEDS: PANTOPRAZOLE 40 MG TABLET (FP) PO SCH (09:38)
[2018-08-23] MEDS: CLOPIDOGREL BISULFATE 75 MG TABLET (FP) PO SCH (09:38)
[2018-08-23] MEDS: POLYETHYLENE GLYCOL 3350 119 GM BTL PO SCH (09:38)
[2018-08-23] MEDS: FOLIC ACID 1 MG TABLET (FP) PO SCH (09:38)
--- NOTE | 2018-08-23 11:38 | PN ---
Progress Note (short form) - Note Progress Note: PULMONARY AWAKE/ALERT APPEARS STABLE VSS ANICTERIC/PALE EXP MILD WHEEZE BILATERAL ANTERIOR S1S2 BS+ NO EDEMA LABS/MEDS/NOTES/IMAGES REVIEWED CT NOTED BUMP IN TROPONIN IMP ACUTE ON CHRONIC HYPOXEMIC/HYPERCAPNEIC RESPIRATORY FAILURE PNEUMONIA COPD EXACERBATION HTN BPH AFIB ELEVATED TROP PLAN IV ABX INHALED BRONCHODILATORS O2 STEROIDS NIPPV IF PT DEVELOPES INCREASED RESPIRATORY DISTRESS CULTURES INFLUENZA SCREEN NEGATIVE ELIQUIS SUGGEST CARDIO F/U AND EKG/TROPS R DIOGENES BERRIOS
--- NOTE | 2018-08-23 12:49 | PN ---
Progress Note (short form) - Note Progress Note: sititing up O2 in place denies CP difficulty expectorating Vital Signs Period Temp Pulse Resp BP Sys/Cleaning Pulse Ox Last 24 Hr 97.4 F-98.2 F 59-77 18-20 101-128/49-67 96 neck - JVD heart S1/S2 lungs decreased BS abd soft non tender ext no calf tenderness CBC, BMP 08/22/18 06:30 08/22/18 06:30 Laboratory Last Values WBC 4.4 K/mm3 (4.0-10.0) 08/22/18 06:30 RBC 4.20 M/mm3 (4.00-5.60) 08/22/18 06:30 Hgb 11.6 GM/dL (11.7-16.9) L 08/22/18 06:30 Hct 34.5 % (35.4-49) L 08/22/18 06:30 MCV 82.0 fl (80-96) 08/22/18 06:30 MCH 27.6 pg (25.7-33.7) 08/22/18 06:30 MCHC 33.6 g/dl (32.0-35.9) 08/22/18 06:30 RDW 15.3 % (11.9-15.9) 08/22/18 06:30 Plt Count 209 K/MM3 (134-434) 08/22/18 06:30 MPV 8.6 fl (7.5-11.1) 08/22/18 06:30 Absolute Neuts (auto) 3.9 K/mm3 (1.5-8.0) 08/22/18 06:30 Neutrophils % 87.1 % (42.8-82.8) H 08/22/18 06:30 Lymphocytes % 9.5 % (8-40) D 08/22/18 06:30 Monocytes % 3.1 % (3.8-10.2) L 08/22/18 06:30 Eosinophils % 0.0 % (0-4.5) 08/22/18 06:30 Basophils % 0.3 % (0-2.0) 08/22/18 06:30 Nucleated RBC % 0 % (0-0) 08/22/18 06:30 PT with INR 18.60 SEC (9.7-13.0) H 08/21/18 11:24 INR 1.57 (0.83-1.09) H 08/21/18 11:24 PTT (Actin FS) 32.5 SECONDS (25.2-36.5) 08/21/18 11:24 Anticoagulation Therapy No Result Required. 08/21/18 12:20 Puncture Site Right radial 08/21/18 12:20 ABG pH 7.36 (7.35-7.45) 08/21/18 12:20 ABG pCO2 at Pt Temp 47.3 mmHg (35-45) H D 08/21/18 12:20 ABG pO2 at Pt Temp 149.0 mmHg (70-100) H D 08/21/18 12:20 ABG HCO3 25.8 meq/L (22-26) 08/21/18 12:20 ABG O2 Sat (Measured) 99.1 % (90-98.9) H 08/21/18 12:20 ABG O2 Content 14.1 % vol (15-22) L 08/21/18 12:20 ABG Base Excess 0.6 meq/l (-2-2) 08/21/18 12:20 Tiago Test Positive 08/21/18 12:20 VBG pH 7.32 (7.32-7.42) 08/21/18 11:25 POC VBG pCO2 59.5 mmHg (38-52) H 08/21/18 11:25 POC VBG pO2 29.2 mmHg (28-48) 08/21/18 11:25 Mixed VBG HCO3 29.7 meq/L (19-25) H 08/21/18 11:25 Carboxyhemoglobin 1.3 gm% (0.5-2.0) 08/21/18 12:20 Methemoglobin 0.0 % (0.4-1.5) L 08/21/18 12:20 O2 Delivery Device No Result Required. 08/21/18 12:20 Oxygen Flow Rate Yes 08/21/18 12:20 Vent Mode No Result Required. 08/21/18 12:20 Vent Rate No Result Required. 08/21/18 12:20 Mechanical Rate No Result Required. 08/21/18 12:20 Pressure Support Vent No Result Required. 08/21/18 12:20 Sodium 134 mmol/L (136-145) L 08/22/18 06:30 Potassium 4.5 mmol/L (3.5-5.1) 08/22/18 06:30 Chloride 100 mmol/L (98-107) 08/22/18 06:30 Carbon Dioxide 25 mmol/L (21-32) 08/22/18 06:30 Anion Gap 9 MMOL/L (8-16) 08/22/18 06:30 BUN 12 mg/dL (7-18) 08/22/18 06:30 Creatinine 0.5 mg/dL (0.55-1.3) L 08/22/18 06:30 Creat Clearance w eGFR > 60 (>60) 08/22/18 06:30 Random Glucose 131 mg/dL (74-106) H 08/22/18 06:30 Lactic Acid 1.0 mmol/L (0.4-2.0) 08/21/18 13:31 Calcium 7.9 mg/dL (8.5-10.1) L 08/22/18 06:30 Magnesium 2.0 mg/dL (1.8-2.4) 08/22/18 06:30 Total Bilirubin 0.5 mg/dL (0.2-1) 08/21/18 11:24 AST 20 U/L (15-37) 08/21/18 11:24 ALT 9 U/L (13-61) L 08/21/18 11:24 Alkaline Phosphatase 72 U/L (45-117) 08/21/18 11:24 Creatine Kinase 166 U/L (26-308) 08/21/18 18:30 Creatine Kinase Index 3.7 % (0.0-5.0) 08/21/18 18:30 CK-MB (CK-2) 6.2 ng/mL (0.5-3.6) H 08/21/18 18:30 Troponin I 0.86 ng/ml (0.00-0.05) H* 08/21/18 18:30 Total Protein 7.7 g/dl (6.4-8.2) 08/21/18 11:24 Albumin 2.6 g/dl (3.4-5.0) L 08/21/18 11:24 Urine Color Kimberly 08/21/18 13:22 Urine Appearance Cloudy 08/21/18 13:22 Urine pH 5.0 (5.0-8.0) 08/21/18 13:22 Ur Specific Uneeda 1.024 (1.010-1.035) 08/21/18 13:22 Urine Protein Negative (NEGATIVE) 08/21/18 13:22 Urine Glucose (UA) Negative (NEGATIVE) 08/21/18 13:22 Urine Ketones Negative (NEGATIVE) 08/21/18 13:22 Urine Blood 1+ (NEGATIVE) H 08/21/18 13:22 Urine Nitrite Negative (NEGATIVE) 08/21/18 13:22 Urine Bilirubin Negative (<2.0 mg/dL) 08/21/18 13:22 Urine Urobilinogen 2.0 mg/dL (0.2-1.0) 08/21/18 13:22 Ur Leukocyte Esterase 2+ (NEGATIVE) H 08/21/18 13:22 Urine WBC (Auto) 395 /hpf (3-5) 08/21/18 13:22 Urine RBC (Auto) 17 /hpf (0-3) 08/21/18 13:22 Urine Bacteria Rare /hpf (NONE SEEN) 08/21/18 13:22 Hyaline Casts 3 /lpf 08/21/18 13:22 Urine Mucus Rare 08/21/18 13:22 Urine Yeast Few 08/21/18 13:22 Influenza A (Rapid) Negative 08/21/18 11:37 Influenza B (Rapid) Negative 08/21/18 11:37 Microbiology 08/21/18 11:00 Blood - Peripheral Venous Blood Culture - Preliminary NO GROWTH OBTAINED AFTER 48 HOURS, INCUBATION TO CONTINUE FOR 3 DAYS. 08/21/18 11:30 Blood - Peripheral Venous Blood Culture - Preliminary NO GROWTH OBTAINED AFTER 48 HOURS, INCUBATION TO CONTINUE FOR 3 DAYS. 08/21/18 13:22 Urine - Urine Clean Catch Urine Culture - Preliminary Active Medications Albuterol/Ipratropium (Duoneb -) 1 amp NEB RQID [facility] [place] Last Admin: 08/23/18 11:53 Dose: 1 amp Alprazolam (Xanax -) 1 mg PO QID [facility] [place] Last Admin: 08/23/18 09:37 Dose: 1 mg Apixaban (Eliquis -) 5 mg PO BID [facility] [place] Last Admin: 08/23/18 09:37 Dose: 5 mg Atenolol (Tenormin -) 50 mg PO DAILY [facility] [place] Last Admin: 08/23/18 09:37 Dose: 50 mg Budesonide/Formoterol Fumarate (Symbicort 80/4.5mcg -) 2 puff IH BID [facility] [place] Last Admin: 08/23/18 09:37 Dose: 2 puff Clopidogrel Bisulfate (Plavix -) 75 mg PO DAILY [facility] [place] Last Admin: 08/23/18 09:38 Dose: 75 mg Diltiazem HCl (Cardizem Cd -) 120 mg PO DAILY [facility] [place] Last Admin: 08/23/18 09:37 Dose: 120 mg Docusate Sodium (Colace -) 300 mg PO HS [facility] [place] Last Admin: 08/22/18 22:54 Dose: 300 mg Emollient Ointment (Aquaphor -) 1 applic TP BID [facility] [place] Last Admin: 08/23/18 09:37 Dose: 1 applic Folic Acid (Folic Acid -) 1 mg PO DAILY [facility] [place] Last Admin: 08/23/18 09:38 Dose: 1 mg Guaifenesin (Mucinex -) 600 mg PO BID [facility] [place] Last Admin: 08/23/18 09:37 Dose: 600 mg Azithromycin (Zithromax 500mg Ivpb (Pre-Docked)) 500 mg in 250 mls @ 250 mls/ hr IVPB DAILY [facility] [place] Last Admin: 08/23/18 09:36 Dose: 250 mls/hr Ceftriaxone Sodium 1 gm/ (Dextrose) 50 mls @ 200 mls/hr IVPB DAILY [facility] [place]; Protocol Last Admin: 08/23/18 09:36 Dose: 200 mls/hr Methylprednisolone Sodium Succinate (Solu-Medrol -) 80 mg IVPUSH TID [facility] [place] Last Admin: 08/23/18 05:44 Dose: 80 mg Pantoprazole Sodium (Protonix -) 40 mg PO DAILY [facility] [place] Last Admin: 08/23/18 09:38 Dose: 40 mg Polyethylene Glycol (Miralax (For Daily Use) -) 17 gm PO DAILY [facility] [place] Last Admin: 08/23/18 09:38 Dose: 17 gm Tamsulosin HCl (Flomax -) 0.8 mg PO DAILY@0830 [facility] [place] Last Admin: 08/23/18 08:51 Dose: 0.8 mg assmt / plan # COPD IV steroids / PPi / nebulizer / abx #PNA - CAP ? continue emperic abx rocephin / azithromycin #A fib rate controlled on A/C --Eliquis #BPH flomax # CAD elevated [facility] cardiology eval 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 Code(s): Z22.322 - CARRIER OR SUSPECTED CARRIER OF METHICILLIN RESIS STAPH (5) Respiratory failure with hypoxia and hypercapnia Code(s): J96.91 - RESPIRATORY FAILURE, UNSPECIFIED WITH HYPOXIA; J96.92 - RESPIRATORY FAILURE, UNSPECIFIED WITH HYPERCAPNIA (6) Atrial fibrillation Code(s): I48.91 - UNSPECIFIED ATRIAL FIBRILLATION Qualifiers: (7) Coronary artery disease Code(s): I25.10 - ATHSCL HEART DISEASE OF [place] CORONARY ARTERY W/O ANG PCTRS Qualifiers: (8) Emphysema of lung Code(s): J43.9 - EMPHYSEMA, UNSPECIFIED (9) HTN (hypertension) Code(s): I10 - ESSENTIAL (PRIMARY) HYPERTENSION Qualifiers: Hypertension type: essential hypertension Qualified Code(s): I10 - Essential (primary) hypertension
[2018-08-23] MEDS ORDERED: PT OWN MED DRAWER 7, Y5N ONE (16:43)
[2018-08-23] MEDS: DOCUSATE SODIUM 100 MG CAPSULE (FP) PO SCH (21:15)
[2018-08-24] MEDS: methylPREDNISolone NA SUCC 40 MG/1 ML VIAL IVPUSH SCH ×3 (05:37→22:03)
[2018-08-24] MEDS: ALBUTEROL SO4 2.5/IPRATROPIUM 0.5 INH SOL 3 ML VIAL.NEB. NEB SCH ×4 (07:15→20:55)
[2018-08-24 08:05] LABS: BASO % 0.2 % (0-2.0); HEMATOCRIT 32.5 % (35.4-49); HEMOGLOBIN 10.9 GM/dL (11.7-16.9); LYMPH % 5.5 % (8-40); MCH 27.6 pg (25.7-33.7); MCHC 33.6 g/dl (32.0-35.9); MEAN CELL VOLUME 82.2 fl (80-96); MEAN PLT VOLUME 8.4 fl (7.5-11.1); MONO % 5.5 % (3.8-10.2); NEUT % 88.8 % (42.8-82.8); PLATELET COUNT 208 K/MM3 (134-434); RBC 3.96 M/mm3 (4.00-5.60); RDW 15.3 % (11.9-15.9); WHITE BLOOD COUNT 6.2 K/mm3 (4.0-10.0)
[2018-08-24 08:18] LABS: ANION GAP 3 MMOL/L (8-16); BLOOD UREA NITROGEN 13 mg/dL (7-18); CALCIUM 8.2 mg/dL (8.5-10.1); CHLORIDE 98 mmol/L (98-107); CO2 35 mmol/L (21-32); CREATININE 0.3 mg/dL (0.55-1.3); GLUCOSE,RANDOM 125 mg/dL (74-106); N-TERMINAL BNP 2121.1 pg/ml (5-450); POTASSIUM 4.7 mmol/L (3.5-5.1); SODIUM 136 mmol/L (136-145)
[2018-08-24] MEDS: TAMSULOSIN HCL 0.4 MG CAP PO SCH (08:29)
--- NOTE | 2018-08-24 10:26 | CON.CARD ---
Consult Consult Specialty:: cardio - History of Present Illness Chief Complaint: sob History of Present Illness: 73 male admitted with cough, chest congestion, fever. being treated or PNA and a.e. copd by pulmonary here. pt denies chest pain or syncope/presyncope, palpitations PMH: afib cad copd HTN - Past Medical History Cardio/Vascular: Yes: AFIB, HTN Pulmonary: Yes: Bronchitis, COPD, O2 Dependent, Pneumonia Dermatology: Yes: Other (B/L feet scars/ scratches) - Past Surgical History Past Surgical History: Yes: Appendectomy, Hernia Repair, Permanent Pacemaker - Alcohol/Substance Use Hx Alcohol Use: No - Smoking History Smoking history: Former smoker Have you smoked in the past 12 months: No If you are a former smoker, when did you quit?: 1979 - Social History History of Recent Travel: No Home Medications - Allergies Allergies/Adverse Reactions: Allergies Allergy/AdvReac Type Severity Reaction Status Date / Time No Known Allergies Allergy Verified 04/15/18 07:03 - Home Medications Home Medications: Ambulatory Orders Alprazolam [Xanax] 1 mg PO QID 03/06/18 Atenolol [Tenormin -] 50 mg PO DAILY 03/06/18 Folic Acid 1 mg PO DAILY 03/06/18 Albuterol 2.5/Ipratropium 0.5 [Duoneb -] 1 vial NEB QID PRN 03/09/18 Mineral Oil/Pet Hy-Phl [Aquaphor -] 1 applic TP BID jar 03/11/18 Budesonide/Formeterol Fumarate [SYMBICORT 80/4.5mcg -] 2 puff IH BID inhaler Diltiazem Cd [Cardizem Cd -] 120 mg PO DAILY #30 cap.cd.24h 03/19/18 Docusate Sodium [Colace -] 300 mg PO HS capsule 03/19/18 Albuterol 0.083% Nebulizer Verna [Ventolin 0.083% Nebulizer Soln -] 1 amp NEB Q8H PRN amp 04/23/18 Albuterol 2.5/Ipratropium 0.5 [Duoneb -] 1 amp NEB RQID 30 Days #120 amp Apixaban [Eliquis] 5 mg PO BID 30 Days #60 tablet 04/23/18 Tamsulosin HCl [Flomax -] 0.8 mg PO DAILY@0830 30 Days #60 cap.er.24h 04/23/18 Family Disease History - Family Disease History Family History: Denies (no known cmp) Review of Systems - Review of Systems Constitutional: denies: Chills, Fever Eyes: denies: Eye Pain HENT: denies: Nasal Congestion Neck: denies: Stiffness Cardiovascular: denies: Palpitations Respiratory: denies: Orthopnea, PND Gastrointestinal: denies: Diarrhea, Rectal Bleeding Genitourinary: denies: Burning, Hematuria Musculoskeletal: denies: Muscle Pain Integumentary: denies: Rash Neurological: denies: Numbness, Seizure, Syncope Endocrine: denies: Excessive Sweating Hematology/Lymphatic: denies: Excessive Bleeding Vital Signs: Vital Signs Temperature 97.8 F 08/24/18 06:47 Pulse Rate 64 08/24/18 06:47 Respiratory Rate 20 08/24/18 06:47 Blood Pressure 116/56 L 08/24/18 06:47 O2 Sat by Pulse Oximetry (%) 96 08/23/18 09:00 Constitutional: Yes: Well Nourished, No Distress Eyes: No: Sclera Icterus HENT: No: Nasal Congestion Neck: No: Decreased ROM Respiratory: Yes: CTA Bilaterally (decr intensity), Wheezes (bilat). No: Accessory Muscle Use, Rales, Rhonchi Gastrointestinal: Yes: Normal Bowel Sounds. No: Distention, Hepatomegaly, Palpable Mass, Tenderness Cardiovascular: Yes: Regular Rate and Rhythm JVD: No Carotid Bruit: No PMI: Non-Displaced Heart Sounds: Yes: S1, S2. No: Gallop Murmur: No: Systolic Murmur, Diastolic Murmur Musculoskeletal: Yes: Other (No kyphosis) Extremities: No: Cool, Cyanosis Edema: No Peripheral Pulses: 2+ Left Carotid, 2+ Right Carotid, 2+ Left Doralis Pedis, 2+ Right Dorsalis Pedis Integumentary: No: Jaundice Neurological: Yes: Alert. No: Oriented (not to trump or year), Seizure Psychiatric: No: Agitated - Other Data Labs, Other Data: CBC, BMP 08/24/18 06:17 08/24/18 06:17 INR, PTT INR 1.57 (0.83-1.09) H 08/21/18 11:24 Troponin, BNP 08/23/18 08/24/18 12:08 06:17 Troponin I 0.42 H B-Natriuretic Peptide 2121.1 H Troponin, BNP 08/23/18 08/24/18 12:08 06:17 Troponin I 0.42 H B-Natriuretic Peptide 2121.1 H Laboratory Tests 03/13/18 08/21/18 08/21/18 00:13 11:24 18:30 WBC Hgb Plt Count Sodium Potassium Carbon Dioxide BUN Creatinine Troponin I 0.24 H 0.86 H* B-Natriuretic Peptide 1736.58 H 08/23/18 08/24/18 08/24/18 12:08 06:17 06:17 WBC 6.2 Hgb 10.9 L Plt Count 208 Sodium 136 Potassium 4.7 Carbon Dioxide 35 H BUN 13 Creatinine 0.3 L Troponin I 0.42 H B-Natriuretic Peptide 2121.1 H Assessment/Plan ECG 08/21: NSR, ? old ASMI, no ST-Ts. no change vs prior ECG 08/23: NSR, PVCs, new TWIs V2/V3 (QT normal) Echo 02/2018: nl lv/rv, mild tr, mod phtn tele: episode of AT/AFL with HR 129 around 10:50 am on 08/23-->sinus sob, congested cough, copd, pna -being treated by pulm -BNP 2100, vs 1700 previous = no signif change NSTEMI: -trop 0.2-->0.8-->0.4. [id number] pattern potentially c/w small ACS event. though cannot exclude Type II MS with this low-range troponin (on bipap at times , ? was hypoxic at times not measured, including at home) vs sepsis -nonspecific TWAs developed on serial ECG here (no ST segment shifts) -recheck echo for LV function/wall motion -will plan pharmacologic nuclear stress test once resp status improves -start hi intensity statin (atorva 40, in elderly) -continue home plavix, plus NOAC agent -continue home b-lainey--observe wheezing/sob clinical course cad: -unclear details, pt said he had cath at [facility] about 10 yrs ago and was told he had narrowing in artery but that due to its location it could not be fixed. he says he was started on plavix and told to continue. -abundant data suggests it is reasonable to stop anti-PLT agents even after remote stenting in stable CAD patients who are on warfarin or NOACs, and many experts recommend this raymond in elderly or other higher bleeding risk. given this pt's age, would not recommend continuing plavix with the above history of med managed CAD -however, will continue for now until stress test is completed given the ? of new ACS event here afib/flutter -in sr here, with a paroxysm of AT/AFL rapid HR 120s. -cont same AVN lainey meds for now (atenolol 50, dilt 120). -monitor tele--will need incr CCB dose if frequent rapid PAF/flutter -cont home eliquis htn: -bp controlled -same meds
[2018-08-24] MEDS ORDERED: cefTRIAXone SODIUM 1 GM VIAL ONE (10:46)
[2018-08-24] MEDS ORDERED: DEXTROSE 5%-WATER - 50 ML IVPB ONE (10:46)
[2018-08-24] MEDS: AZITHROMYCIN IVPB 500 MG/250 ML BAG IVPB SCH (10:49)
[2018-08-24] MEDS: CEFTRIAXONE 1 GM in DEXTROSE 5%-WATER - 50 ML IVPB SCH (10:49)
[2018-08-24] MEDS: ALPRAZolam 2 MG TABLET PO SCH ×4 (10:49→22:03)
[2018-08-24] MEDS: APIXABAN 5 MG TABLET PO SCH ×2 (10:49→22:03)
[2018-08-24] MEDS: FOLIC ACID 1 MG TABLET (FP) PO SCH (10:50)
[2018-08-24] MEDS: POLYETHYLENE GLYCOL 3350 119 GM BTL PO SCH (10:50)
[2018-08-24] MEDS: ATENOLOL 50 MG TABLET (FP) PO SCH (10:50)
[2018-08-24] MEDS: PANTOPRAZOLE 40 MG TABLET (FP) PO SCH (10:50)
[2018-08-24] MEDS: BUDESONIDE/FORMETEROL FUMARATE 80/4.5 mcg INHALER IH SCH ×2 (10:50→22:02)
[2018-08-24] MEDS: guaiFENesin 600 MG TABLET.ER (FP) PO SCH ×2 (10:50→22:03)
[2018-08-24] MEDS: MINERAL OIL/PET HY-PHL TOPICAL OINTMENT 454 GM JAR TP SCH ×2 (10:50→22:02)
--- NOTE | 2018-08-24 11:00 | EKG ---
Test Reason : Blood Pressure : / mmHG Vent. Rate : 069 BPM Atrial Rate : 069 BPM P-R Int : 170 ms QRS Dur : 070 ms QT Int : 412 ms P-R-T Axes : 089 066 070 degrees QTc Int : 441 ms SINUS RHYTHM WITH PREMATURE ATRIAL COMPLEXES AND PREMATURE VENTRICULAR COMPLEXES WITH ABERRANT CONDUCTION LOW VOLTAGE QRS CANNOT RULE OUT ANTEROSEPTAL INFARCT (CITED ON OR BEFORE 15-APR-2018) ABNORMAL ECG WHEN COMPARED WITH ECG OF 21-AUG-2018 11:06, ABERRANT CONDUCTION IS NOW PRESENT VENT. RATE HAS DECREASED Confirmed by MADONNA BERRIOS, MARIA ELENA ([id number]) on 08/24/2018 10:59:49 AM Referred By: Jessika TSAI Confirmed By:MARIA ELENA PEACOCK MD
--- NOTE | 2018-08-24 13:01 | ECHO ---
Name: GRISEL JASON Exam:Adult Echocardiogram Study Date: 08/24/2018 11:13 AM Age: 73 yrs Reason For Study: Elevated trops/wheeze Height: 72 in Weight: 140 lb BSA: 1.8 m2 MMode/2D Measurements & Calculations IVSd: 0.79 cm Ao root diam: 3.4 cm LVIDd: 5.2 cm LA dimension: 3.4 cm LVIDs: 2.7 cm ACS: 1.6 cm LVPWd: 0.81 cm IVSs: 0.88 cm LVPWs: 1.1 cm EDV(Teich): 128.6 ml ESV(Teich): 27.8 ml Doppler Measurements & Calculations TR max judah: 293.5 cm/sec PI end-d judah: 132.5 cm/sec TR max P.5 mmHg Med Peak E' Judah: 7.1 cm/sec Lat Peak E' Judah: 9.7 cm/sec Procedure A complete two-dimensional transthoracic echocardiogram was performed (2D, M-mode, Doppler and color flow Doppler). Technically limited study. Left Ventricle The left ventricle is normal in size. Left ventricular systolic function is normal. Ejection Fraction = 65- 70%. No regional wall motion abnormalities noted. Right Ventricle The right ventricle is normal size. The right ventricular systolic function is normal. Atria The left atrial size is normal. Right atrial size is normal. Mitral Valve There is mild mitral annular calcification. There is mild mitral regurgitation. Tricuspid Valve The tricuspid valve is normal in structure and function. There is moderate tricuspid regurgitation. P ulmonary artery systolic pressure is at least 41 mmHg assuming RA pressure at least 3 mmHg (IVC was not visual ized to estimate RA pressure). Aortic Valve There is mild aortic sclerosis.;. No aortic regurgitation is present. Pulmonic Valve The pulmonic valve is not well visualized. Trace to mild pulmonic valvular regurgitation. Great Vessels The aortic root is normal size. Pericardium/Pleura There is no pericardial effusion. Interpretation Summary Technically limited study The left ventricle is normal in size. Left ventricular systolic function is normal. No regional wall motion abnormalities noted. Ejection Fraction = 65-70%. The right ventricular systolic function is normal. The left atrial size is normal. Right atrial size is normal. There is mild mitral annular calcification. There is mild mitral regurgitation. There is moderate tricuspid regurgitation. Pulmonary artery systolic pressure is at least 41 mmHg assuming RA pressure at least 3 mmHg (IVC was not visualized to estimate RA pressure) There is mild aortic sclerosis.; No aortic regurgitation is present. Trace to mild pulmonic valvular regurgitation. There is no pericardial effusion. When compared to study dated 03/09/18, no significant changes Esvin Caldera MD 08/24/2018 01:00 PM
--- NOTE | 2018-08-24 14:01 | PN ---
Progress Note (short form) - Note Progress Note: PULMONARY Breathing slightly better today. +nonproductive cough and wheezing. Vital Signs Period Temp Pulse Resp BP Sys/Cleaning Pulse Ox Last 24 Hr 97.3 F-97.8 F 59-77 18-20 112-123/54-62 93 Gen: NAD at rest Heart: RRR Lung: scattered rhonchi Abd: soft, nontender Ext: no edema CBC, BMP 08/24/18 06:17 08/24/18 06:17 Active Medications Albuterol/Ipratropium (Duoneb -) 1 amp NEB RQID [facility] Last Admin: 08/24/18 11:20 Dose: 1 amp Alprazolam (Xanax -) 1 mg PO QID [facility] Last Admin: 08/24/18 10:49 Dose: 1 mg Apixaban (Eliquis -) 5 mg PO BID [facility] Last Admin: 08/24/18 10:49 Dose: 5 mg Atenolol (Tenormin -) 50 mg PO DAILY [facility] Last Admin: 08/24/18 10:50 Dose: 50 mg Atorvastatin Calcium (Lipitor -) 40 mg PO HS [facility] Budesonide/Formoterol Fumarate (Symbicort 80/4.5mcg -) 2 puff IH BID [facility] Last Admin: 08/24/18 10:50 Dose: 2 puff Clopidogrel Bisulfate (Plavix -) 75 mg PO DAILY [facility] Diltiazem HCl (Cardizem Cd -) 120 mg PO DAILY [facility] Last Admin: 08/24/18 10:49 Dose: 120 mg Docusate Sodium (Colace -) 300 mg PO HS [facility] Last Admin: 08/23/18 21:15 Dose: 300 mg Emollient Ointment (Aquaphor -) 1 applic TP BID [facility] Last Admin: 08/24/18 10:50 Dose: 1 applic Folic Acid (Folic Acid -) 1 mg PO DAILY [facility] Last Admin: 08/24/18 10:50 Dose: 1 mg Guaifenesin (Mucinex -) 600 mg PO BID [facility] Last Admin: 08/24/18 10:50 Dose: 600 mg Azithromycin (Zithromax 500mg Ivpb (Pre-Docked)) 500 mg in 250 mls @ 250 mls/ hr IVPB DAILY [facility] Last Admin: 08/24/18 10:49 Dose: 250 mls/hr Ceftriaxone Sodium 1 gm/ (Dextrose) 50 mls @ 200 mls/hr IVPB DAILY [facility]; Protocol Last Admin: 08/24/18 10:49 Dose: 200 mls/hr Methylprednisolone Sodium Succinate (Solu-Medrol -) 80 mg IVPUSH TID [facility] Last Admin: 08/24/18 05:37 Dose: 80 mg Pantoprazole Sodium (Protonix -) 40 mg PO DAILY [facility] Last Admin: 08/24/18 10:50 Dose: 40 mg Polyethylene Glycol (Miralax (For Daily Use) -) 17 gm PO DAILY [facility] Last Admin: 08/24/18 10:50 Dose: 17 gm Tamsulosin HCl (Flomax -) 0.8 mg PO DAILY@0830 [facility] Last Admin: 08/24/18 08:29 Dose: 0.8 mg A/P Pneumonia Acute COPD Exacerbation Lung Nodule Pulmonary HTN Acute NSTEMI CAD Atrial Fibrillation/Flutter HTN - continue antibiotics - will decrease medrol to 40mg q8h - inhaled bronchodilators - O2 to keep SpO2 >90% - rate controlled - continue anticoagulation - will need outpt f/u of chest imaging of nodule
[2018-08-24] MEDS ORDERED: PT OWN MED DRAWER 7, Y5N ONE (21:58)
[2018-08-24] MEDS: DOCUSATE SODIUM 100 MG CAPSULE (FP) PO SCH (22:03)
[2018-08-24] MEDS: ATORVASTATIN CA 40 MG TABLET (FP) PO SCH (22:03)
[2018-08-24 22:05] VITALS: BMI 17.4
[2018-08-25] MEDS: methylPREDNISolone NA SUCC 40 MG/1 ML VIAL IVPUSH SCH ×3 (03:05→18:05)
[2018-08-25] MEDS: ALBUTEROL SO4 2.5/IPRATROPIUM 0.5 INH SOL 3 ML VIAL.NEB. NEB SCH ×4 (08:28→20:27)
[2018-08-25] MEDS: TAMSULOSIN HCL 0.4 MG CAP PO SCH (08:57)
--- NOTE | 2018-08-25 09:20 | PN ---
Progress Note (short form) - Note Progress Note: s: breathing improving, no chest pain, palps, dizziness Vital Signs: Vital Signs Period Temp Pulse Resp BP Sys/Cleaning Pulse Ox Last 24 Hr 97.4 F-97.8 F 61-72 16-20 117-124/53-60 98 Constitutional: Yes: Well Nourished, No Distress Eyes: No: Sclera Icterus HENT: No: Nasal Congestion Neck: No: Decreased ROM Respiratory: Yes: CTA Bilaterally (decr intensity), Wheezes (bilat). No: Accessory Muscle Use, Rales, Rhonchi Gastrointestinal: Yes: Normal Bowel Sounds. No: Distention, Hepatomegaly, Palpable Mass, Tenderness Cardiovascular: Yes: Regular Rate and Rhythm JVD: No Carotid Bruit: No PMI: Non-Displaced Heart Sounds: Yes: S1, S2. No: Gallop Murmur: No: Systolic Murmur, Diastolic Murmur Musculoskeletal: Yes: Other (No kyphosis) Extremities: No: Cool, Cyanosis Edema: No Peripheral Pulses: 2+ Left Carotid, 2+ Right Carotid, 2+ Left Doralis Pedis, 2+ Right Dorsalis Pedis Integumentary: No: Jaundice Neurological: Yes: Alert. No: Oriented (not to trump or year), Seizure Psychiatric: No: Agitated Assessment/Plan ECG 08/21: NSR, ? old ASMI, no ST-Ts. no change vs prior ECG 08/23: NSR, PVCs, new TWIs V2/V3 (QT normal) Echo 02/2018: nl lv/rv, mild tr, mod phtn echo 07/2018 nl LV/RV fn, mild MR, mod TR, PASP at least 41 mmHg tele: sinus sob, congested cough, copd, pna -being treated by pulm -BNP 2100, vs 1700 previous = no signif change NSTEMI: -trop 0.2-->0.8-->0.4. icou-btm-ayur pattern potentially c/w small ACS event. though cannot exclude Type II [place] with this low-range troponin (on bipap at times , ? was hypoxic at times not measured, including at home) vs sepsis -nonspecific TWAs developed on serial ECG here (no ST segment shifts) -echo - nl LV function -will plan pharmacologic nuclear stress test once resp status improves -cont hi intensity statin (atorva 40, in elderly) -continue home plavix, plus NOAC agent -continue home b-lainey--observe wheezing/sob clinical course cad: -unclear details, pt said he had cath at [facility] about 10 yrs ago and was told he had narrowing in artery but that due to its location it could not be fixed. he says he was started on plavix and told to continue. -abundant data suggests it is reasonable to stop anti-PLT agents even after remote stenting in stable CAD patients who are on warfarin or NOACs, and many experts recommend this raymond in elderly or other higher bleeding risk. given this pt's age, would not recommend continuing plavix with the above history of med managed CAD -however, will continue for now until stress test is completed given the ? of new ACS event here afib/flutter -in sr here, with a paroxysm of AT/AFL rapid HR 120s on 08/23 -cont same AVN lainey meds for now (atenolol 50, dilt 120). -monitor tele--will need incr CCB dose if frequent rapid PAF/flutter -cont home eliquis htn: -bp controlled -same meds
[2018-08-25] MEDS ORDERED: DEXTROSE 5%-WATER - 50 ML IVPB ONE (09:41)
[2018-08-25] MEDS ORDERED: cefTRIAXone SODIUM 1 GM VIAL ONE (09:41)
[2018-08-25] MEDS: guaiFENesin 600 MG TABLET.ER (FP) PO SCH ×2 (10:13→21:29)
[2018-08-25] MEDS: ALPRAZolam 2 MG TABLET PO SCH ×4 (10:13→21:29)
[2018-08-25] MEDS: AZITHROMYCIN IVPB 500 MG/250 ML BAG IVPB SCH (10:13)
[2018-08-25] MEDS: CEFTRIAXONE 1 GM in DEXTROSE 5%-WATER - 50 ML IVPB SCH (10:13)
[2018-08-25] MEDS: CLOPIDOGREL BISULFATE 75 MG TABLET (FP) PO SCH (10:14)
[2018-08-25] MEDS: APIXABAN 5 MG TABLET PO SCH ×2 (10:14→21:29)
[2018-08-25] MEDS: MINERAL OIL/PET HY-PHL TOPICAL OINTMENT 454 GM JAR TP SCH ×2 (10:14→21:29)
[2018-08-25] MEDS: FOLIC ACID 1 MG TABLET (FP) PO SCH (10:14)
[2018-08-25] MEDS: POLYETHYLENE GLYCOL 3350 119 GM BTL PO SCH (10:14)
[2018-08-25] MEDS: ATENOLOL 50 MG TABLET (FP) PO SCH (10:14)
[2018-08-25] MEDS: PANTOPRAZOLE 40 MG TABLET (FP) PO SCH (10:14)
[2018-08-25] MEDS: BUDESONIDE/FORMETEROL FUMARATE 80/4.5 mcg INHALER IH SCH ×2 (10:34→21:30)
--- NOTE | 2018-08-25 14:45 | PN ---
Progress Note (short form) - Note Progress Note: PULMONARY Breathing continues to improve. less nonproductive cough and wheezing. Vital Signs Period Temp Pulse Resp BP Sys/Cleaning Pulse Ox Last 24 Hr 97.3 F-97.8 F 61-70 18-20 116-124/51-60 98 Gen: NAD at rest Heart: RRR Lung: scattered rhonchi Abd: soft, nontender Ext: no edema CBC, BMP 08/24/18 06:17 08/24/18 06:17 Active Medications Albuterol/Ipratropium (Duoneb -) 1 amp NEB RQID [facility] Last Admin: 08/25/18 11:32 Dose: 1 amp Alprazolam (Xanax -) 1 mg PO QID [facility] Last Admin: 08/25/18 10:13 Dose: 1 mg Apixaban (Eliquis -) 5 mg PO BID [facility] Last Admin: 08/25/18 10:14 Dose: 5 mg Atenolol (Tenormin -) 50 mg PO DAILY [facility] Last Admin: 08/25/18 10:14 Dose: 50 mg Atorvastatin Calcium (Lipitor -) 40 mg PO HS [facility] Last Admin: 08/24/18 22:03 Dose: 40 mg Budesonide/Formoterol Fumarate (Symbicort 80/4.5mcg -) 2 puff IH BID [facility] Last Admin: 08/24/18 22:02 Dose: 2 puff Clopidogrel Bisulfate (Plavix -) 75 mg PO DAILY [facility] Last Admin: 08/25/18 10:14 Dose: 75 mg Diltiazem HCl (Cardizem Cd -) 120 mg PO DAILY [facility] Last Admin: 08/25/18 10:14 Dose: 120 mg Docusate Sodium (Colace -) 300 mg PO HS [facility] Last Admin: 08/24/18 22:03 Dose: 300 mg Emollient Ointment (Aquaphor -) 1 applic TP BID [facility] Last Admin: 08/25/18 10:14 Dose: 1 applic Folic Acid (Folic Acid -) 1 mg PO DAILY [facility] Last Admin: 08/25/18 10:14 Dose: 1 mg Guaifenesin (Mucinex -) 600 mg PO BID [facility] Last Admin: 08/25/18 10:13 Dose: 600 mg Azithromycin (Zithromax 500mg Ivpb (Pre-Docked)) 500 mg in 250 mls @ 250 mls/ hr IVPB DAILY [facility] Last Admin: 08/25/18 10:13 Dose: 250 mls/hr Ceftriaxone Sodium 1 gm/ (Dextrose) 50 mls @ 200 mls/hr IVPB DAILY [facility]; Protocol Last Admin: 08/25/18 10:13 Dose: 200 mls/hr Methylprednisolone Sodium Succinate (Solu-Medrol -) 40 mg IVPUSH Q8H-IV [facility] Last Admin: 08/25/18 10:13 Dose: 40 mg Pantoprazole Sodium (Protonix -) 40 mg PO DAILY [facility] Last Admin: 08/25/18 10:14 Dose: 40 mg Polyethylene Glycol (Miralax (For Daily Use) -) 17 gm PO DAILY [facility] Last Admin: 08/25/18 10:14 Dose: 17 gm Tamsulosin HCl (Flomax -) 0.8 mg PO DAILY@0830 [facility] Last Admin: 08/25/18 08:57 Dose: 0.8 mg A/P Pneumonia Acute COPD Exacerbation Lung Nodule Pulmonary HTN Acute NSTEMI CAD Atrial Fibrillation/Flutter HTN - continue antibiotics - continue medrol to 40mg q8h - if continues to improve, can likely change steroids to PO prednisone 40mg daily and taper as outpt - inhaled bronchodilators - O2 to keep SpO2 >90% - rate controlled - continue anticoagulation - will need outpt f/u of chest imaging of nodule
[2018-08-25] MEDS: ATORVASTATIN CA 40 MG TABLET (FP) PO SCH (21:29)
[2018-08-25] MEDS: DOCUSATE SODIUM 100 MG CAPSULE (FP) PO SCH (21:29)
--- NOTE | 2018-08-25 22:54 | PN ---
Progress Note (short form) - Note Progress Note: sititing up O2 in place denies CP Vital Signs Period Temp Pulse Resp BP Sys/Cleaning Pulse Ox Last 24 Hr 97.3 F-97.8 F 59-69 16-20 113-124/46-60 96 neck heart S1/S2 lungs decreased BS abd soft non tender ext no calf tenderness CBC, BMP 08/24/18 06:17 08/24/18 06:17 CBC, BMP 08/22/18 06:30 08/22/18 06:30 Microbiology 08/21/18 11:00 Blood - Peripheral Venous Blood Culture - Preliminary NO GROWTH OBTAINED AFTER 96 HOURS, INCUBATION TO CONTINUE FOR 1 DAYS. 08/21/18 11:30 Blood - Peripheral Venous Blood Culture - Preliminary NO GROWTH OBTAINED AFTER 96 HOURS, INCUBATION TO CONTINUE FOR 1 DAYS. 08/21/18 13:22 Urine - Urine Clean Catch Urine Culture - Final Yeast Like Organism Pseudomonas Species Active Medications Albuterol/Ipratropium (Duoneb -) 1 amp NEB RQID [facility] Last Admin: 08/25/18 20:27 Dose: 1 amp Alprazolam (Xanax -) 1 mg PO QID [facility] Last Admin: 08/25/18 21:29 Dose: 1 mg Apixaban (Eliquis -) 5 mg PO BID [facility] Last Admin: 08/25/18 21:29 Dose: 5 mg Atenolol (Tenormin -) 50 mg PO DAILY [facility] Last Admin: 08/25/18 10:14 Dose: 50 mg Atorvastatin Calcium (Lipitor -) 40 mg PO [facility] Last Admin: 08/25/18 21:29 Dose: 40 mg Budesonide/Formoterol Fumarate (Symbicort 80/4.5mcg -) 2 puff IH BID [facility] Last Admin: 08/25/18 21:30 Dose: 2 puff Clopidogrel Bisulfate (Plavix -) 75 mg PO DAILY [facility] Last Admin: 08/25/18 10:14 Dose: 75 mg Diltiazem HCl (Cardizem Cd -) 120 mg PO DAILY [facility] Last Admin: 08/25/18 10:14 Dose: 120 mg Docusate Sodium (Colace -) 300 mg PO HS [facility] Last Admin: 08/25/18 21:29 Dose: 300 mg Emollient Ointment (Aquaphor -) 1 applic TP BID [facility] Last Admin: 08/25/18 21:29 Dose: 1 applic Folic Acid (Folic Acid -) 1 mg PO DAILY [facility] Last Admin: 08/25/18 10:14 Dose: 1 mg Guaifenesin (Mucinex -) 600 mg PO BID [facility] Last Admin: 08/25/18 21:29 Dose: 600 mg Azithromycin (Zithromax 500mg Ivpb (Pre-Docked)) 500 mg in 250 mls @ 250 mls/ hr IVPB DAILY [facility] Last Admin: 08/25/18 10:13 Dose: 250 mls/hr Ceftriaxone Sodium 1 gm/ (Dextrose) 50 mls @ 200 mls/hr IVPB DAILY [facility]; Protocol Last Admin: 08/25/18 10:13 Dose: 200 mls/hr Methylprednisolone Sodium Succinate (Solu-Medrol -) 40 mg IVPUSH Q8H-IV [facility] Last Admin: 08/25/18 18:05 Dose: 40 mg Pantoprazole Sodium (Protonix -) 40 mg PO DAILY [facility] Last Admin: 08/25/18 10:14 Dose: 40 mg Polyethylene Glycol (Miralax (For Daily Use) -) 17 gm PO DAILY [facility] Last Admin: 08/25/18 10:14 Dose: 17 gm Tamsulosin HCl (Flomax -) 0.8 mg PO DAILY@0830 [facility] Last Admin: 08/25/18 08:57 Dose: 0.8 mg assmt / plan # COPD IV steroids / PPi / nebulizer / abx #PNA - CAP ? continue abx rocephin / azithromycin #A fib rate controlled although episodes of inc HR CCB on A/C --Eliquis #BPH flomax # CAD elevated TNI - no c/o CP however episodes hypoxia appreciate cardiology eval testing once pulm status improved and stable 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 Code(s): Z22.322 - CARRIER OR SUSPECTED CARRIER OF METHICILLIN RESIS STAPH (5) Respiratory failure with hypoxia and hypercapnia Code(s): J96.91 - RESPIRATORY FAILURE, UNSPECIFIED WITH HYPOXIA; J96.92 - RESPIRATORY FAILURE, UNSPECIFIED WITH HYPERCAPNIA (6) Atrial fibrillation Code(s): I48.91 - UNSPECIFIED ATRIAL FIBRILLATION Qualifiers: (7) Coronary artery disease Code(s): I25.10 - ATHSCL HEART DISEASE OF [place] CORONARY ARTERY W/O ANG PCTRS Qualifiers: (8) Emphysema of lung Code(s): J43.9 - EMPHYSEMA, UNSPECIFIED (9) HTN (hypertension) Code(s): I10 - ESSENTIAL (PRIMARY) HYPERTENSION Qualifiers: Hypertension type: essential hypertension Qualified Code(s): I10 - Essential (primary) hypertension
[2018-08-26] MEDS: methylPREDNISolone NA SUCC 40 MG/1 ML VIAL IVPUSH SCH ×3 (01:18→17:41)
[2018-08-26 07:13] LABS: BASO % 0.1 % (0-2.0); HEMATOCRIT 36.4 % (35.4-49); HEMOGLOBIN 11.9 GM/dL (11.7-16.9); LYMPH % 3.4 % (8-40); MCH 27.6 pg (25.7-33.7); MCHC 32.7 g/dl (32.0-35.9); MEAN CELL VOLUME 84.3 fl (80-96); MEAN PLT VOLUME 8.1 fl (7.5-11.1); MONO % 6.4 % (3.8-10.2); NEUT % 90.1 % (42.8-82.8); PLATELET COUNT 226 K/MM3 (134-434); RBC 4.32 M/mm3 (4.00-5.60); RDW 15.6 % (11.9-15.9); WHITE BLOOD COUNT 9.8 K/mm3 (4.0-10.0)
[2018-08-26 07:39] LABS: ANION GAP 2 MMOL/L (8-16); BLOOD UREA NITROGEN 13 mg/dL (7-18); CALCIUM 8.2 mg/dL (8.5-10.1); CHLORIDE 96 mmol/L (98-107); CO2 41 mmol/L (21-32); CREATININE 0.4 mg/dL (0.55-1.3); GLUCOSE,RANDOM 115 mg/dL (74-106); POTASSIUM 4.6 mmol/L (3.5-5.1); SODIUM 138 mmol/L (136-145)
[2018-08-26] MEDS: ALBUTEROL SO4 2.5/IPRATROPIUM 0.5 INH SOL 3 ML VIAL.NEB. NEB SCH ×4 (08:05→20:31)
[2018-08-26] MEDS: CLOPIDOGREL BISULFATE 75 MG TABLET (FP) PO SCH ×2 (08:17→11:03)
--- NOTE | 2018-08-26 09:43 | PN ---
Progress Note, Physician History of Present Illness: AWAKE, ALERT SEATED IN BED OFFERS NO COMPLAINTS NO C/O CHEST PAIN/ DYSPNEA/ COUGH NO FEVER/ CHILLS AFEBRILE WBC WNL - Current Medication List Current Medications: Active Medications Albuterol/Ipratropium (Duoneb -) 1 amp NEB RQID [facility] Last Admin: 08/26/18 08:05 Dose: 1 amp Alprazolam (Xanax -) 1 mg PO QID [facility] Last Admin: 08/25/18 21:29 Dose: 1 mg Apixaban (Eliquis -) 5 mg PO BID [facility] Last Admin: 08/25/18 21:29 Dose: 5 mg Atenolol (Tenormin -) 50 mg PO DAILY [facility] Last Admin: 08/25/18 10:14 Dose: 50 mg Atorvastatin Calcium (Lipitor -) 40 mg PO HS [facility] Last Admin: 08/25/18 21:29 Dose: 40 mg Budesonide/Formoterol Fumarate (Symbicort 80/4.5mcg -) 2 puff IH BID [facility] Last Admin: 08/25/18 21:30 Dose: 2 puff Clopidogrel Bisulfate (Plavix -) 75 mg PO DAILY [facility] Last Admin: 08/25/18 10:14 Dose: 75 mg Diltiazem HCl (Cardizem Cd -) 120 mg PO DAILY [facility] Last Admin: 08/25/18 10:14 Dose: 120 mg Docusate Sodium (Colace -) 300 mg PO HS [facility] Last Admin: 08/25/18 21:29 Dose: 300 mg Emollient Ointment (Aquaphor -) 1 applic TP BID [facility] Last Admin: 08/25/18 21:29 Dose: 1 applic Folic Acid (Folic Acid -) 1 mg PO DAILY [facility] Last Admin: 08/25/18 10:14 Dose: 1 mg Guaifenesin (Mucinex -) 600 mg PO BID [facility] Last Admin: 08/25/18 21:29 Dose: 600 mg Azithromycin (Zithromax 500mg Ivpb (Pre-Docked)) 500 mg in 250 mls @ 250 mls/ hr IVPB DAILY [facility] Last Admin: 08/25/18 10:13 Dose: 250 mls/hr Ceftriaxone Sodium 1 gm/ (Dextrose) 50 mls @ 200 mls/hr IVPB DAILY [facility]; Protocol Last Admin: 08/25/18 10:13 Dose: 200 mls/hr Methylprednisolone Sodium Succinate (Solu-Medrol -) 40 mg IVPUSH Q8H-IV [facility] Last Admin: 08/26/18 01:18 Dose: 40 mg Pantoprazole Sodium (Protonix -) 40 mg PO DAILY [facility] Last Admin: 08/25/18 10:14 Dose: 40 mg Polyethylene Glycol (Miralax (For Daily Use) -) 17 gm PO DAILY [facility] Last Admin: 08/25/18 10:14 Dose: 17 gm Tamsulosin HCl (Flomax -) 0.8 mg PO DAILY@0830 [facility] Last Admin: 08/25/18 08:57 Dose: 0.8 mg - Objective Vital Signs: Vital Signs Temperature 97.5 F L 08/26/18 06:00 Pulse Rate 71 08/26/18 06:00 Respiratory Rate 18 08/26/18 06:00 Blood Pressure 130/63 08/26/18 06:00 O2 Sat by Pulse Oximetry (%) 96 08/25/18 21:00 Constitutional: Yes: No Distress Eyes: Yes: Conjunctiva Clear Cardiovascular: Yes: Regular Rate and Rhythm Respiratory: Yes: Diminished Gastrointestinal: Yes: Normal Bowel Sounds, Soft. No: Tenderness Edema: LLE: 1+, RLE: 1+ Labs: CBC, BMP 08/26/18 06:30 08/26/18 06:30 INR, PTT INR 1.57 (0.83-1.09) H 08/21/18 11:24 Assessment/Plan BASILAR PNEUMONIA COPD EXACERBATION FEVER- RESOLVED CONTINUE CEFTRIAXONE/ ZITHROMAX
--- NOTE | 2018-08-26 10:16 | PN ---
Progress Note (short form) - Note Progress Note: s: breathing improving, walked with PT without dyspnea. no chest pain, palps, dizziness Vital Signs: Vital Signs Period Temp Pulse Resp BP Sys/Cleaning Pulse Ox Last 24 Hr 97.3 F-97.7 F 59-71 16-18 113-133/46-91 96 Constitutional: Yes: Well Nourished, No Distress Eyes: No: Sclera Icterus HENT: No: Nasal Congestion Neck: No: Decreased ROM Respiratory: Yes: CTA Bilaterally (decr intensity), Wheezes (bilat). No: Accessory Muscle Use, Rales, Rhonchi Gastrointestinal: Yes: Normal Bowel Sounds. No: Distention, Hepatomegaly, Palpable Mass, Tenderness Cardiovascular: Yes: Regular Rate and Rhythm JVD: No Carotid Bruit: No PMI: Non-Displaced Heart Sounds: Yes: S1, S2. No: Gallop Murmur: No: Systolic Murmur, Diastolic Murmur Musculoskeletal: Yes: Other (No kyphosis) Extremities: No: Cool, Cyanosis Edema: No Peripheral Pulses: 2+ Left Carotid, 2+ Right Carotid, 2+ Left Doralis Pedis, 2+ Right Dorsalis Pedis Integumentary: No: Jaundice Neurological: Yes: Alert. No: Oriented (not to trump or year), Seizure Psychiatric: No: Agitated Current Medications Albuterol/Ipratropium (Duoneb -) 1 amp NEB RQID [facility] Last Admin: 08/26/18 08:05 Dose: 1 amp Alprazolam (Xanax -) 1 mg PO QID [facility] Last Admin: 08/25/18 21:29 Dose: 1 mg Apixaban (Eliquis -) 5 mg PO BID [facility] Last Admin: 08/25/18 21:29 Dose: 5 mg Atenolol (Tenormin -) 50 mg PO DAILY [facility] Last Admin: 08/25/18 10:14 Dose: 50 mg Atorvastatin Calcium (Lipitor -) 40 mg PO HS [facility] Last Admin: 08/25/18 21:29 Dose: 40 mg Budesonide/Formoterol Fumarate (Symbicort 80/4.5mcg -) 2 puff IH BID [facility] Last Admin: 08/25/18 21:30 Dose: 2 puff Clopidogrel Bisulfate (Plavix -) 75 mg PO DAILY [facility] Last Admin: 08/25/18 10:14 Dose: 75 mg Diltiazem HCl (Cardizem Cd -) 120 mg PO DAILY [facility] Last Admin: 08/25/18 10:14 Dose: 120 mg Docusate Sodium (Colace -) 300 mg PO HS [facility] Last Admin: 08/25/18 21:29 Dose: 300 mg Emollient Ointment (Aquaphor -) 1 applic TP BID [facility] Last Admin: 08/25/18 21:29 Dose: 1 applic Folic Acid (Folic Acid -) 1 mg PO DAILY [facility] Last Admin: 08/25/18 10:14 Dose: 1 mg Guaifenesin (Mucinex -) 600 mg PO BID [facility] Last Admin: 08/25/18 21:29 Dose: 600 mg Azithromycin (Zithromax 500mg Ivpb (Pre-Docked)) 500 mg in 250 mls @ 250 mls/ hr IVPB DAILY [facility] Last Admin: 08/25/18 10:13 Dose: 250 mls/hr Ceftriaxone Sodium 1 gm/ (Dextrose) 50 mls @ 200 mls/hr IVPB DAILY [facility]; Protocol Last Admin: 08/25/18 10:13 Dose: 200 mls/hr Methylprednisolone Sodium Succinate (Solu-Medrol -) 40 mg IVPUSH Q8H-IV [facility] Last Admin: 08/26/18 01:18 Dose: 40 mg Pantoprazole Sodium (Protonix -) 40 mg PO DAILY [facility] Last Admin: 08/25/18 10:14 Dose: 40 mg Polyethylene Glycol (Miralax (For Daily Use) -) 17 gm PO DAILY [facility] Last Admin: 08/25/18 10:14 Dose: 17 gm Tamsulosin HCl (Flomax -) 0.8 mg PO DAILY@0830 [facility] Last Admin: 08/25/18 08:57 Dose: 0.8 mg Assessment/Plan ECG 08/21: NSR, ? old ASMI, no ST-Ts. no change vs prior ECG 08/23: NSR, PVCs, new TWIs V2/V3 (QT normal) Echo 02/2018: nl lv/rv, mild tr, mod phtn echo 07/2018 nl LV/RV fn, mild MR, mod TR, PASP at least 41 mmHg tele: sinus sob, congested cough, copd, pna -being treated by pulm, sob improving -BNP 2100, vs 1700 previous = no signif change NSTEMI: -trop 0.2-->0.8-->0.4. [id number] pattern potentially c/w small ACS event. though cannot exclude Type II MO with this low-range troponin (on bipap at times , ? was hypoxic at times not measured, including at home) vs sepsis -nonspecific TWAs developed on serial ECG here (no ST segment shifts) -echo - nl LV function -cont hi intensity statin (atorva 40, in elderly) -continue home plavix, plus NOAC agent -continue home b-lainey--observe wheezing/sob clinical course -will plan pharmacologic nuclear stress test once resp status improves cad: -unclear details, pt said he had cath at [facility] about 10 yrs ago and was told he had narrowing in artery but that due to its location it could not be fixed. he says he was started on plavix and told to continue. -abundant data suggests it is reasonable to stop anti-PLT agents even after remote stenting in stable CAD patients who are on warfarin or NOACs, and many experts recommend this raymond in elderly or other higher bleeding risk. given this pt's age, would not recommend continuing plavix with the above history of med managed CAD -however, will continue for now until stress test is completed given the ? of new ACS event here afib/flutter -in sr here, with a paroxysm of AT/AFL rapid HR 120s on 08/23 -cont same AVN lainey meds for now (atenolol 50, dilt 120). -monitor tele--will need incr CCB dose if frequent rapid PAF/flutter -cont home eliquis htn: -bp controlled -same meds
[2018-08-26] MEDS ORDERED: PT OWN MED DRAWER 7, Y5N ONE (10:27)
[2018-08-26] MEDS ORDERED: DEXTROSE 5%-WATER - 50 ML IVPB ONE (10:28)
[2018-08-26] MEDS ORDERED: cefTRIAXone SODIUM 1 GM VIAL ONE (10:28)
[2018-08-26] MEDS: MINERAL OIL/PET HY-PHL TOPICAL OINTMENT 454 GM JAR TP SCH ×2 (11:02→21:53)
[2018-08-26] MEDS: TAMSULOSIN HCL 0.4 MG CAP PO SCH (11:02)
[2018-08-26] MEDS: ATENOLOL 50 MG TABLET (FP) PO SCH (11:02)
[2018-08-26] MEDS: ALPRAZolam 2 MG TABLET PO SCH ×4 (11:02→21:54)
[2018-08-26] MEDS: AZITHROMYCIN IVPB 500 MG/250 ML BAG IVPB SCH (11:02)
[2018-08-26] MEDS: BUDESONIDE/FORMETEROL FUMARATE 80/4.5 mcg INHALER IH SCH ×2 (11:02→21:54)
[2018-08-26] MEDS: POLYETHYLENE GLYCOL 3350 119 GM BTL PO SCH (11:03)
[2018-08-26] MEDS: PANTOPRAZOLE 40 MG TABLET (FP) PO SCH (11:03)
[2018-08-26] MEDS: APIXABAN 5 MG TABLET PO SCH ×2 (11:03→21:54)
[2018-08-26] MEDS: guaiFENesin 600 MG TABLET.ER (FP) PO SCH ×2 (11:03→21:54)
[2018-08-26] MEDS: CEFTRIAXONE 1 GM in DEXTROSE 5%-WATER - 50 ML IVPB SCH (11:03)
[2018-08-26] MEDS: FOLIC ACID 1 MG TABLET (FP) PO SCH (11:03)
--- NOTE | 2018-08-26 12:07 | PN ---
Progress Note, Physician History of Present Illness: pulmonary alert,oob-chair,-resp distress,less cough - Current Medication List Current Medications: Active Medications Albuterol/Ipratropium (Duoneb -) 1 amp NEB RQID [facility] Last Admin: 08/26/18 11:44 Dose: 1 amp Alprazolam (Xanax -) 1 mg PO QID [facility] Last Admin: 08/26/18 11:02 Dose: 1 mg Apixaban (Eliquis -) 5 mg PO BID [facility] Last Admin: 08/26/18 11:03 Dose: 5 mg Atenolol (Tenormin -) 50 mg PO DAILY [facility] Last Admin: 08/26/18 11:02 Dose: 50 mg Atorvastatin Calcium (Lipitor -) 40 mg PO HS [facility] Last Admin: 08/25/18 21:29 Dose: 40 mg Budesonide/Formoterol Fumarate (Symbicort 80/4.5mcg -) 2 puff IH BID [facility] Last Admin: 08/26/18 11:02 Dose: Not Given Clopidogrel Bisulfate (Plavix -) 75 mg PO DAILY [facility] Last Admin: 08/26/18 11:03 Dose: 75 mg Diltiazem HCl (Cardizem Cd -) 120 mg PO DAILY [facility] Last Admin: 08/26/18 11:03 Dose: 120 mg Docusate Sodium (Colace -) 300 mg PO HS [facility] Last Admin: 08/25/18 21:29 Dose: 300 mg Emollient Ointment (Aquaphor -) 1 applic TP BID [facility] Last Admin: 08/26/18 11:02 Dose: 1 applic Folic Acid (Folic Acid -) 1 mg PO DAILY [facility] Last Admin: 08/26/18 11:03 Dose: 1 mg Guaifenesin (Mucinex -) 600 mg PO BID [facility] Last Admin: 08/26/18 11:03 Dose: 600 mg Azithromycin (Zithromax 500mg Ivpb (Pre-Docked)) 500 mg in 250 mls @ 250 mls/ hr IVPB DAILY [facility] Last Admin: 08/26/18 11:02 Dose: 250 mls/hr Ceftriaxone Sodium 1 gm/ (Dextrose) 50 mls @ 200 mls/hr IVPB DAILY [facility]; Protocol Last Admin: 08/26/18 11:03 Dose: 200 mls/hr Methylprednisolone Sodium Succinate (Solu-Medrol -) 40 mg IVPUSH Q8H-IV [facility] Last Admin: 08/26/18 11:02 Dose: 40 mg Pantoprazole Sodium (Protonix -) 40 mg PO DAILY [facility] Last Admin: 08/26/18 11:03 Dose: 40 mg Polyethylene Glycol (Miralax (For Daily Use) -) 17 gm PO DAILY [facility] Last Admin: 08/26/18 11:03 Dose: 17 gm Tamsulosin HCl (Flomax -) 0.8 mg PO DAILY@0830 [facility] Last Admin: 08/26/18 11:02 Dose: 0.8 mg - Objective Vital Signs: Vital Signs Temperature 97.5 F L 08/26/18 06:00 Pulse Rate 71 08/26/18 06:00 Respiratory Rate 18 08/26/18 06:00 Blood Pressure 130/63 08/26/18 06:00 O2 Sat by Pulse Oximetry (%) 96 08/25/18 21:00 Constitutional: Yes: Calm, Thin Eyes: Yes: WNL HENT: Yes: WNL Neck: Yes: WNL Cardiovascular: Yes: Pulse Irregular, S1, S2 Respiratory: Yes: Rhonchi (few scattered ced rhonchi) Gastrointestinal: Yes: Normal Bowel Sounds, Soft Extremities: Yes: WNL Edema: No Labs: CBC, BMP 08/26/18 06:30 08/26/18 06:30 INR, PTT INR 1.57 (0.83-1.09) H 08/21/18 11:24 Problem List - Problems (1) COPD exacerbation Code(s): J44.1 - CHRONIC OBSTRUCTIVE PULMONARY DISEASE W (ACUTE) EXACERBATION (2) Pneumonia Code(s): J18.9 - PNEUMONIA, UNSPECIFIED ORGANISM Qualifiers: Pneumonia type: due to unspecified organism Laterality: right Lung location: lower lobe of lung Qualified Code(s): J18.1 - Lobar pneumonia, unspecified organism (3) Respiratory failure with hypoxia and hypercapnia Code(s): J96.91 - RESPIRATORY FAILURE, UNSPECIFIED WITH HYPOXIA; J96.92 - RESPIRATORY FAILURE, UNSPECIFIED WITH HYPERCAPNIA (4) Atrial fibrillation Code(s): I48.91 - UNSPECIFIED ATRIAL FIBRILLATION Qualifiers: (5) Coronary artery disease Code(s): I25.10 - ATHSCL HEART DISEASE OF [place] CORONARY ARTERY W/O ANG PCTRS Qualifiers: (6) Emphysema of lung Code(s): J43.9 - EMPHYSEMA, UNSPECIFIED (7) Acute on chronic respiratory failure with hypoxia and hypercapnia Code(s): J96.21 - ACUTE AND CHRONIC RESPIRATORY FAILURE WITH HYPOXIA; J96.22 - ACUTE AND CHRONIC RESPIRATORY FAILURE WITH HYPERCAPNIA Assessment/Plan IMP ACUTE ON CHRONIC HYPOXEMIC/HYPERCAPNEIC RESPIRATORY FAILURE PNEUMONIA COPD EXACERBATION HTN BPH AFIB LUNG NODULE/MASS PLAN IV ABX INHALED BRONCHODILATORS O2 STEROID TAPER NIPPV IF PT DEVELOPES INCREASED RESPIRATORY DISTRESS ELIQUIS F/U CHEST CT 4-6 TO DOCUMENT RESOLUTION OF INFILTRATE/NODULE,IF NO CHANGE PET SCAN ,CT GUIDED BX RLL MASS DR COREAS Problem List - Problems (1) COPD exacerbation Code(s): J44.1 - CHRONIC OBSTRUCTIVE PULMONARY DISEASE W (ACUTE) EXACERBATION (2) Pneumonia Code(s): J18.9 - PNEUMONIA, UNSPECIFIED ORGANISM Qualifiers: Pneumonia type: due to unspecified organism Laterality: right Lung location: lower lobe of lung Qualified Code(s): J18.1 - Lobar pneumonia, unspecified organism (3) Respiratory failure with hypoxia and hypercapnia Code(s): J96.91 - RESPIRATORY FAILURE, UNSPECIFIED WITH HYPOXIA; J96.92 - RESPIRATORY FAILURE, UNSPECIFIED WITH HYPERCAPNIA (4) Atrial fibrillation Code(s): I48.91 - UNSPECIFIED ATRIAL FIBRILLATION Qualifiers: (5) Coronary artery disease Code(s): I25.10 - ATHSCL HEART DISEASE OF [place] CORONARY ARTERY W/O ANG PCTRS Qualifiers: (6) Emphysema of lung Code(s): J43.9 - EMPHYSEMA, UNSPECIFIED (7) Acute on chronic respiratory failure with hypoxia and hypercapnia Code(s): J96.21 - ACUTE AND CHRONIC RESPIRATORY FAILURE WITH HYPOXIA; J96.22 - ACUTE AND CHRONIC RESPIRATORY FAILURE WITH HYPERCAPNIA
--- NOTE | 2018-08-26 18:10 | PN ---
Progress Note, Physician Chief Complaint: 73 y/o M admitted for management of CAP History of Present Illness: 24HR EVENTS: -cardiology recommends nuclear stress test once resp status improves for troponemia. -pts' resp status remains stable -pt anxious to go home -pulm recommends outpt f/u of chest imaging of nodule - Current Medication List Current Medications: Active Medications Albuterol/Ipratropium (Duoneb -) 1 amp NEB RQID ON LICENSE OF [facility] Last Admin: 08/26/18 15:31 Dose: 1 amp Alprazolam (Xanax -) 1 mg PO QID ON [facility] OF [facility] Last Admin: 08/26/18 17:41 Dose: 1 mg Apixaban (Eliquis -) 5 mg PO BID ON [facility] Last Admin: 08/26/18 11:03 Dose: 5 mg Atenolol (Tenormin -) 50 mg PO DAILY ON [facility] Last Admin: 08/26/18 11:02 Dose: 50 mg Atorvastatin Calcium (Lipitor -) 40 mg PO HS ON [facility] Last Admin: 08/25/18 21:29 Dose: 40 mg Budesonide/Formoterol Fumarate (Symbicort 80/4.5mcg -) 2 puff IH BID ON [facility] Last Admin: 08/26/18 11:02 Dose: Not Given Clopidogrel Bisulfate (Plavix -) 75 mg PO DAILY ON [facility] Last Admin: 08/26/18 11:03 Dose: 75 mg Diltiazem HCl (Cardizem Cd -) 120 mg PO DAILY [facility] Last Admin: 08/26/18 11:03 Dose: 120 mg Docusate Sodium (Colace -) 300 mg PO HS ON [facility] Last Admin: 08/25/18 21:29 Dose: 300 mg Emollient Ointment (Aquaphor -) 1 applic TP BID ON [facility] Last Admin: 08/26/18 11:02 Dose: 1 applic Folic Acid (Folic Acid -) 1 mg PO DAILY [facility] Last Admin: 08/26/18 11:03 Dose: 1 mg Guaifenesin (Mucinex -) 600 mg PO BID [facility] Last Admin: 08/26/18 11:03 Dose: 600 mg Azithromycin (Zithromax 500mg Ivpb (Pre-Docked)) 500 mg in 250 mls @ 250 mls/ hr IVPB DAILY [facility] Last Admin: 08/26/18 11:02 Dose: 250 mls/hr Ceftriaxone Sodium 1 gm/ (Dextrose) 50 mls @ 200 mls/hr IVPB DAILY ON [facility]; Protocol Last Admin: 08/26/18 11:03 Dose: 200 mls/hr Methylprednisolone Sodium Succinate (Solu-Medrol -) 40 mg IVPUSH Q8H-IV ON [facility] OF [facility] Last Admin: 08/26/18 17:41 Dose: 40 mg Pantoprazole Sodium (Protonix -) 40 mg PO DAILY [facility] Last Admin: 08/26/18 11:03 Dose: 40 mg Polyethylene Glycol (Miralax (For Daily Use) -) 17 gm PO DAILY [facility] Last Admin: 08/26/18 11:03 Dose: 17 gm Tamsulosin HCl (Flomax -) 0.8 mg PO DAILY@0830 [facility] Last Admin: 08/26/18 11:02 Dose: 0.8 mg - Objective Vital Signs: Vital Signs Temperature 98.0 F 08/26/18 13:37 Pulse Rate 60 08/26/18 13:37 Respiratory Rate 16 08/26/18 13:37 Blood Pressure 110/51 L 08/26/18 13:37 O2 Sat by Pulse Oximetry (%) 97 08/26/18 09:00 Constitutional: Yes: No Distress, Calm, Cachectic, Thin Eyes: Yes: Conjunctiva Clear, PERRL HENT: Yes: Atraumatic, Normocephalic Neck: Yes: Supple Cardiovascular: Yes: Regular Rate and Rhythm Respiratory: Yes: Regular, Rhonchi, Wheezes Gastrointestinal: Yes: Normal Bowel Sounds, Soft ...Rectal Exam: Yes: Deferred Musculoskeletal: Yes: WNL Extremities: Yes: WNL Edema: Yes Edema: LLE: 1+ (ankle/pedal edema), RLE: 1+ (ankle/pedal edema) Peripheral Pulses WNL: Yes Peripheral Pulses: Left Radial: 2+, Right Radial: 2+, Left Doralis Pedis: 2+, Right Dorsalis Pedis: 2+ Integumentary: Yes: WNL Neurological: Yes: Alert, Oriented ...Motor Strength: WNL Psychiatric: Yes: Alert, Oriented Labs: CBC, BMP 08/26/18 06:30 08/26/18 06:30 INR, PTT INR 1.57 (0.83-1.09) H 08/21/18 11:24 Problem List - Problems (1) Prophylactic measure Assessment/Plan: bowel regimen with senna and colace miralax PRN Code(s): Z29.9 - ENCOUNTER FOR PROPHYLACTIC MEASURES, UNSPECIFIED (2) Elevated troponin Assessment/Plan: pt followed by cards, recommendations appreciated. 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 Assessment/Plan: contact isolation Code(s): Z22.322 - CARRIER OR SUSPECTED CARRIER OF METHICILLIN RESIS STAPH (6) Atrial fibrillation Assessment/Plan: cardizem 120mg daily atenolol 50mg daily eliquis 5mg BID Code(s): I48.91 - UNSPECIFIED ATRIAL FIBRILLATION Qualifiers: Impression/Plan Impression/Plan: BPH: flomax 0.8mg daily Anxiety: Xanax 1mg QID GI PPX: protonix 40mg daily DISPO: home when stable FULL CODE Visit type - Emergency Visit Emergency Visit: Yes ED Registration Date: 08/21/18 Care time: The patient presented to the Emergency Department on the above date and was hospitalized for further evaluation of their emergent condition. - New Patient This patient is new to me today: Yes Date on this admission: 08/26/18 - Critical Care Critical Care patient: No - Discharge Referral Referred to [facility] Med P.C.: No
[2018-08-26] MEDS: DOCUSATE SODIUM 100 MG CAPSULE (FP) PO SCH (21:54)
[2018-08-26] MEDS: ATORVASTATIN CA 40 MG TABLET (FP) PO SCH (21:54)
[2018-08-27] MEDS: methylPREDNISolone NA SUCC 40 MG/1 ML VIAL IVPUSH SCH ×3 (01:20→18:15)
[2018-08-27] MEDS: ALBUTEROL SO4 2.5/IPRATROPIUM 0.5 INH SOL 3 ML VIAL.NEB. NEB SCH ×4 (07:34→20:20)
[2018-08-27] MEDS: TAMSULOSIN HCL 0.4 MG CAP PO SCH (08:15)
[2018-08-27] MEDS ORDERED: DEXTROSE 5%-WATER - 50 ML IVPB ONE (10:10)
[2018-08-27] MEDS ORDERED: cefTRIAXone SODIUM 1 GM VIAL ONE (10:10)
[2018-08-27] MEDS: FOLIC ACID 1 MG TABLET (FP) PO SCH (10:15)
[2018-08-27] MEDS: guaiFENesin 600 MG TABLET.ER (FP) PO SCH ×2 (10:15→21:52)
[2018-08-27] MEDS: BUDESONIDE/FORMETEROL FUMARATE 80/4.5 mcg INHALER IH SCH ×2 (10:16→22:16)
[2018-08-27] MEDS: CLOPIDOGREL BISULFATE 75 MG TABLET (FP) PO SCH (10:16)
[2018-08-27] MEDS: ALPRAZolam 2 MG TABLET PO SCH ×4 (10:16→21:59)
[2018-08-27] MEDS: APIXABAN 5 MG TABLET PO SCH ×2 (10:16→22:01)
[2018-08-27] MEDS: PANTOPRAZOLE 40 MG TABLET (FP) PO SCH (10:16)
[2018-08-27] MEDS: CEFTRIAXONE 1 GM in DEXTROSE 5%-WATER - 50 ML IVPB SCH (10:16)
[2018-08-27] MEDS: ATENOLOL 50 MG TABLET (FP) PO SCH (10:16)
[2018-08-27] MEDS: POLYETHYLENE GLYCOL 3350 119 GM BTL PO SCH (10:17)
[2018-08-27] MEDS: MINERAL OIL/PET HY-PHL TOPICAL OINTMENT 454 GM JAR TP SCH ×2 (10:18→21:54)
--- NOTE | 2018-08-27 10:21 | PN ---
Progress Note (short form) - Note Progress Note: s: breathing improving, walked with PT without dyspnea again today. no chest pain, palps, dizziness. says he wants to go home tomorrow. Vital Signs: Vital Signs Period Temp Pulse Resp BP Sys/Cleaning Pulse Ox Last 24 Hr 97.4 F-98.1 F 56-71 16-20 110-134/50-60 96 Constitutional: Yes: Well Nourished, No Distress Eyes: No: Sclera Icterus Respiratory: Yes: CTA Bilaterally . No: Accessory Muscle Use, Rales, Rhonchi Gastrointestinal: Yes: Normal Bowel Sounds. No: Distention, Hepatomegaly, Palpable Mass, Tenderness Cardiovascular: Yes: Regular Rate and Rhythm JVD: No Carotid Bruit: No PMI: Non-Displaced Heart Sounds: Yes: S1, S2. No: Gallop Murmur: No: Systolic Murmur, Diastolic Murmur Extremities: No: Cool, Cyanosis Edema: No Peripheral Pulses: 2+ Left Carotid, 2+ Right Carotid, 2+ Left Doralis Pedis, 2+ Right Dorsalis Pedis Integumentary: No: Jaundice Neurological: Yes: Alert. No: Oriented (not to trump or year), Seizure Psychiatric: No: Agitated Current Medications Generic Name Dose Route Start Last Admin Trade Name Jcq PRN Reason Stop Dose Admin Albuterol/Ipratropium 1 amp 08/21/18 16:00 08/27/18 07:34 Duoneb - NEB 1 amp RQID GE Administration Alprazolam 1 mg 08/21/18 18:00 08/26/18 21:54 Xanax - PO 1 mg QID GE Administration Apixaban 5 mg 08/21/18 13:15 08/26/18 21:54 Eliquis - PO 5 mg BID GE Administration Atenolol 50 mg 08/21/18 13:15 08/26/18 11:02 Tenormin - PO 50 mg DAILY GE Administration Atorvastatin Calcium 40 mg 08/24/18 22:00 08/26/18 21:54 Lipitor - PO 40 mg HS GE Administration Budesonide/Formoterol Fumarate 2 puff 08/21/18 22:00 08/26/18 21:54 Symbicort 80/4.5mcg - IH 2 puff BID GE Administration Clopidogrel Bisulfate 75 mg 08/25/18 10:00 08/26/18 11:03 Plavix - PO 75 mg DAILY GE Administration Diltiazem HCl 120 mg 08/22/18 10:00 08/26/18 11:03 Cardizem Cd - PO 120 mg DAILY GE Administration Docusate Sodium 300 mg 08/21/18 22:00 08/26/18 21:54 Colace - PO 300 mg HS GE Administration Emollient Ointment 1 applic 08/21/18 22:00 08/26/18 21:53 Aquaphor - TP 1 applic BID GE Administration Folic Acid 1 mg 08/22/18 10:00 08/26/18 11:03 Folic Acid - PO 1 mg DAILY GE Administration Guaifenesin 600 mg 08/21/18 22:00 08/26/18 21:54 Mucinex - PO 600 mg BID GE Administration Azithromycin 500 mg in 250 mls @ 250 mls/hr 08/22/18 10:00 08/26/18 11:02 Zithromax 500mg Ivpb (Pre-Docked) IVPB 250 mls/hr DAILY GE Administration Ceftriaxone Sodium 1 gm/ 50 mls @ 200 mls/hr 08/22/18 10:00 08/26/18 11:03 Dextrose IVPB 200 mls/hr DAILY GE Administration Protocol Methylprednisolone Sodium Succinate 40 mg 08/24/18 22:00 08/27/18 01:20 Solu-Medrol - IVPUSH 40 mg Q8H-IV GE Administration Pantoprazole Sodium 40 mg 08/21/18 13:15 08/26/18 11:03 Protonix - PO 40 mg DAILY GE Administration Polyethylene Glycol 17 gm 08/21/18 13:15 08/26/18 11:03 Miralax (For Daily Use) - PO 17 gm DAILY GE Administration Tamsulosin HCl 0.8 mg 08/22/18 08:30 08/26/18 11:02 Flomax - PO 0.8 mg DAILY@0830 GE Administration CBC, BMP 08/26/18 06:30 08/26/18 06:30 Assessment/Plan ECG 08/21: NSR, ? old ASMI, no ST-Ts. no change vs prior ECG 08/23: NSR, PVCs, new TWIs V2/V3 (QT normal) Echo 02/2018: nl lv/rv, mild tr, mod phtn echo 07/2018 nl LV/RV fn, mild MR, mod TR, PASP at least 41 mmHg tele: sinus sob, congested cough, copd, pna -being treated by pulm, sob improving -BNP 2100, vs 1700 previous = no signif change NSTEMI: -trop 0.2-->0.8-->0.4. [id number] pattern potentially c/w small ACS event. though cannot exclude Type II CT with this low-range troponin (on bipap at times , ? was hypoxic at times not measured, including at home) vs sepsis -nonspecific TWAs developed on serial ECG here (no ST segment shifts) -echo - nl LV function -cont hi intensity statin (atorva 40, in elderly) -continue home plavix, plus NOAC agent -continue home b-lainey -plan was for nuclear stress test for risk stratification after resp issues resolved but in speaking with pt today he declines stress test and says he just wants to go home. cad: -unclear details, pt said he had cath at [facility] about 10 yrs ago and was told he had narrowing in artery but that due to its location it could not be fixed. he says he was started on plavix and told to continue. -abundant data suggests it is reasonable to stop anti-PLT agents even after remote stenting in stable CAD patients who are on warfarin or NOACs, and many experts recommend this raymond in elderly or other higher bleeding risk. given this pt's age, would not recommend continuing plavix with the above history of med managed CAD -however, will continue for now given the ? of new ACS event here afib/flutter -in sr here, with a paroxysm of AT/AFL rapid HR 120s on 08/23 -cont same AVN lainey meds for now (atenolol 50, dilt 120). -monitor tele--will need incr CCB dose if frequent rapid PAF/flutter -cont home eliquis htn: -bp controlled -same meds
[2018-08-27] MEDS: AZITHROMYCIN IVPB 500 MG/250 ML BAG IVPB SCH (11:24)
--- NOTE | 2018-08-27 11:52 | PN ---
Progress Note (short form) - Note Progress Note: 73 y/o male found sitting in chair. O2 in place. Receiving IV antibiotics. States that he feels better than yesterday and would like to go home. Vital Signs Period Temp Pulse Resp BP Sys/Cleaning Pulse Ox Last 24 Hr 97.4 F-98.1 F 56-76 16-20 110-134/50-60 96 CBC, BMP 08/26/18 06:30 08/26/18 06:30 HEENT-Normocephalic Neck-Supple Lungs-CTAB Heart- S1/S2 Abd- Soft, nt Ext- No LE edema Active Medications Albuterol/Ipratropium (Duoneb -) 1 amp NEB RQID [facility] Last Admin: 08/27/18 11:15 Dose: 1 amp Alprazolam (Xanax -) 1 mg PO QID [facility] Last Admin: 08/27/18 10:16 Dose: 1 mg Apixaban (Eliquis -) 5 mg PO BID [facility] Last Admin: 08/27/18 10:16 Dose: 5 mg Atenolol (Tenormin -) 50 mg PO DAILY [facility] Last Admin: 08/27/18 10:16 Dose: 50 mg Atorvastatin Calcium (Lipitor -) 40 mg PO HS [facility] Last Admin: 08/26/18 21:54 Dose: 40 mg Budesonide/Formoterol Fumarate (Symbicort 80/4.5mcg -) 2 puff IH BID [facility] Last Admin: 08/27/18 10:16 Dose: 2 puff Clopidogrel Bisulfate (Plavix -) 75 mg PO DAILY [facility] Last Admin: 08/27/18 10:16 Dose: 75 mg Diltiazem HCl (Cardizem Cd -) 120 mg PO DAILY [facility] Last Admin: 08/27/18 10:16 Dose: 120 mg Docusate Sodium (Colace -) 300 mg PO HS [facility] Last Admin: 08/26/18 21:54 Dose: 300 mg Emollient Ointment (Aquaphor -) 1 applic TP BID [facility] Last Admin: 08/27/18 10:18 Dose: 1 applic Folic Acid (Folic Acid -) 1 mg PO DAILY [facility] Last Admin: 08/27/18 10:15 Dose: 1 mg Guaifenesin (Mucinex -) 600 mg PO BID [facility] Last Admin: 08/27/18 10:15 Dose: 600 mg Azithromycin (Zithromax 500mg Ivpb (Pre-Docked)) 500 mg in 250 mls @ 250 mls/ hr IVPB DAILY [facility] Last Admin: 08/27/18 11:24 Dose: 250 mls/hr Ceftriaxone Sodium 1 gm/ (Dextrose) 50 mls @ 200 mls/hr IVPB DAILY [facility]; Protocol Last Admin: 08/27/18 10:16 Dose: 200 mls/hr Methylprednisolone Sodium Succinate (Solu-Medrol -) 40 mg IVPUSH Q8H-IV [facility] Last Admin: 08/27/18 10:15 Dose: 40 mg Pantoprazole Sodium (Protonix -) 40 mg PO DAILY [facility] Last Admin: 08/27/18 10:16 Dose: 40 mg Polyethylene Glycol (Miralax (For Daily Use) -) 17 gm PO DAILY [facility] Last Admin: 08/27/18 10:17 Dose: 17 gm Tamsulosin HCl (Flomax -) 0.8 mg PO DAILY@0830 [facility] Last Admin: 08/27/18 08:15 Dose: 0.8 mg assmt / plan # COPD IV steroids / PPI/ nebulizer IV antibiotics per ID #PNA - CAP ? continue abx rocephin / azithromycin #A fib rate controlled although episodes of inc HR CCB and BB on A/C --Eliquis #BPH cont flomax # CAD elevated TNI - no c/o CP however episodes hypoxia appreciate cardiology eval declines testing at this time 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 Code(s): Z22.322 - CARRIER OR SUSPECTED CARRIER OF METHICILLIN RESIS STAPH (5) Respiratory failure with hypoxia and hypercapnia Code(s): J96.91 - RESPIRATORY FAILURE, UNSPECIFIED WITH HYPOXIA; J96.92 - RESPIRATORY FAILURE, UNSPECIFIED WITH HYPERCAPNIA (6) Atrial fibrillation Code(s): I48.91 - UNSPECIFIED ATRIAL FIBRILLATION Qualifiers: (7) Coronary artery disease Code(s): I25.10 - ATHSCL HEART DISEASE OF [place] CORONARY ARTERY W/O ANG PCTRS Qualifiers: (8) Emphysema of lung Code(s): J43.9 - EMPHYSEMA, UNSPECIFIED (9) HTN (hypertension) Code(s): I10 - ESSENTIAL (PRIMARY) HYPERTENSION Qualifiers: Hypertension type: essential hypertension Qualified Code(s): I10 - Essential (primary) hypertension
--- NOTE | 2018-08-27 13:08 | PN ---
Progress Note (short form) - Note Progress Note: PULMONARY Breathing continues to improve. less nonproductive cough and wheezing. Vital Signs Period Temp Pulse Resp BP Sys/Cleaning Pulse Ox Last 24 Hr 97.4 F-98.1 F 56-76 16-20 110-134/50-60 96 Gen: NAD at rest Heart: RRR Lung: scattered rhonchi Abd: soft, nontender Ext: no edema CBC, BMP 08/26/18 06:30 08/26/18 06:30 Active Medications Albuterol/Ipratropium (Duoneb -) 1 amp NEB RQID [facility] Last Admin: 08/27/18 11:15 Dose: 1 amp Alprazolam (Xanax -) 1 mg PO QID [facility] Last Admin: 08/27/18 10:16 Dose: 1 mg Apixaban (Eliquis -) 5 mg PO BID [facility] Last Admin: 08/27/18 10:16 Dose: 5 mg Atenolol (Tenormin -) 50 mg PO DAILY [facility] Last Admin: 08/27/18 10:16 Dose: 50 mg Atorvastatin Calcium (Lipitor -) 40 mg PO HS [facility] Last Admin: 08/26/18 21:54 Dose: 40 mg Budesonide/Formoterol Fumarate (Symbicort 80/4.5mcg -) 2 puff IH BID [facility] Last Admin: 08/27/18 10:16 Dose: 2 puff Clopidogrel Bisulfate (Plavix -) 75 mg PO DAILY [facility] Last Admin: 08/27/18 10:16 Dose: 75 mg Diltiazem HCl (Cardizem Cd -) 120 mg PO DAILY [facility] Last Admin: 08/27/18 10:16 Dose: 120 mg Docusate Sodium (Colace -) 300 mg PO HS [facility] Last Admin: 08/26/18 21:54 Dose: 300 mg Emollient Ointment (Aquaphor -) 1 applic TP BID [facility] Last Admin: 08/27/18 10:18 Dose: 1 applic Folic Acid (Folic Acid -) 1 mg PO DAILY [facility] Last Admin: 08/27/18 10:15 Dose: 1 mg Guaifenesin (Mucinex -) 600 mg PO BID [facility] Last Admin: 08/27/18 10:15 Dose: 600 mg Azithromycin (Zithromax 500mg Ivpb (Pre-Docked)) 500 mg in 250 mls @ 250 mls/ hr IVPB DAILY [facility] Last Admin: 08/27/18 11:24 Dose: 250 mls/hr Ceftriaxone Sodium 1 gm/ (Dextrose) 50 mls @ 200 mls/hr IVPB DAILY [facility]; Protocol Last Admin: 08/27/18 10:16 Dose: 200 mls/hr Methylprednisolone Sodium Succinate (Solu-Medrol -) 40 mg IVPUSH Q8H-IV [facility] Last Admin: 08/27/18 10:15 Dose: 40 mg Pantoprazole Sodium (Protonix -) 40 mg PO DAILY [facility] Last Admin: 08/27/18 10:16 Dose: 40 mg Polyethylene Glycol (Miralax (For Daily Use) -) 17 gm PO DAILY [facility] Last Admin: 08/27/18 10:17 Dose: 17 gm Tamsulosin HCl (Flomax -) 0.8 mg PO DAILY@0830 [facility] Last Admin: 08/27/18 08:15 Dose: 0.8 mg A/P Pneumonia Acute COPD Exacerbation Lung Nodule Pulmonary HTN Acute NSTEMI CAD Atrial Fibrillation/Flutter HTN - continue antibiotics - continue medrol - if continues to improve, can likely change steroids to PO prednisone 40mg daily in AM and taper as outpt - inhaled bronchodilators - O2 to keep SpO2 >90% - rate controlled - continue anticoagulation - will need outpt f/u of chest imaging of nodule
[2018-08-27] MEDS ORDERED: PT OWN MED DRAWER 7, Y5N ONE (21:45)
[2018-08-27] MEDS: ATORVASTATIN CA 40 MG TABLET (FP) PO SCH (21:59)
[2018-08-27] MEDS: DOCUSATE SODIUM 100 MG CAPSULE (FP) PO SCH (22:00)
[2018-08-28] MEDS: methylPREDNISolone NA SUCC 40 MG/1 ML VIAL IVPUSH SCH ×3 (01:43→17:25)
[2018-08-28] MEDS: ALBUTEROL SO4 2.5/IPRATROPIUM 0.5 INH SOL 3 ML VIAL.NEB. NEB SCH ×4 (07:35→20:33)
[2018-08-28] MEDS ORDERED: PT OWN MED DRAWER 7, Y5N ONE ×2 (09:33→21:23)
[2018-08-28] MEDS ORDERED: DEXTROSE 5%-WATER - 50 ML IVPB ONE (09:34)
[2018-08-28] MEDS ORDERED: cefTRIAXone SODIUM 1 GM VIAL ONE (09:34)
[2018-08-28] MEDS: AZITHROMYCIN IVPB 500 MG/250 ML BAG IVPB SCH (09:44)
[2018-08-28] MEDS: TAMSULOSIN HCL 0.4 MG CAP PO SCH (09:45)
[2018-08-28] MEDS: CEFTRIAXONE 1 GM in DEXTROSE 5%-WATER - 50 ML IVPB SCH (09:45)
[2018-08-28] MEDS: guaiFENesin 600 MG TABLET.ER (FP) PO SCH ×2 (09:46→22:26)
[2018-08-28] MEDS: CLOPIDOGREL BISULFATE 75 MG TABLET (FP) PO SCH (09:46)
[2018-08-28] MEDS: APIXABAN 5 MG TABLET PO SCH ×2 (09:46→22:26)
[2018-08-28] MEDS: ALPRAZolam 2 MG TABLET PO SCH ×4 (09:46→22:26)
[2018-08-28] MEDS: BUDESONIDE/FORMETEROL FUMARATE 80/4.5 mcg INHALER IH SCH ×2 (09:46→22:27)
[2018-08-28] MEDS: FOLIC ACID 1 MG TABLET (FP) PO SCH (09:46)
[2018-08-28] MEDS: PANTOPRAZOLE 40 MG TABLET (FP) PO SCH (09:46)
[2018-08-28] MEDS: ATENOLOL 50 MG TABLET (FP) PO SCH (09:46)
[2018-08-28] MEDS: POLYETHYLENE GLYCOL 3350 119 GM BTL PO SCH (09:49)
[2018-08-28] MEDS: MINERAL OIL/PET HY-PHL TOPICAL OINTMENT 454 GM JAR TP SCH ×2 (09:50→22:26)
--- NOTE | 2018-08-28 11:14 | PN ---
Progress Note (short form) - Note Progress Note: 73 y/o male found sitting in chair. O2 in place. Nurse informed O2 sat low this am on room air (80s). Vital Signs Period Temp Pulse Resp BP Sys/Cleaning Pulse Ox Last 24 Hr 97.3 F-97.6 F 56-84 16-20 116-139/53-73 90-96 CBC, BMP 08/26/18 06:30 08/26/18 06:30 HEENT- Normocephalic. O2 in place Neck- supple Lungs- CTAB Heart- S1/S2 Abd- Soft, Nt Ext- No Le edema Active Medications Albuterol/Ipratropium (Duoneb -) [address] [facility] Last Admin: 08/28/18 07:35 Dose: 1 amp Alprazolam (Xanax -) [address] [facility] Last Admin: 08/28/18 09:46 Dose: 1 mg Apixaban (Eliquis -) [address] [facility] Last Admin: 08/28/18 09:46 Dose: 5 mg Atenolol (Tenormin -) [address] [facility] Last Admin: 08/28/18 09:46 Dose: 50 mg Atorvastatin Calcium (Lipitor -) [address] [facility] Last Admin: 08/27/18 21:59 Dose: 40 mg Budesonide/Formoterol Fumarate (Symbicort 80/4.5mcg -) [address] [facility] Last Admin: 08/28/18 09:46 Dose: 2 puff Clopidogrel Bisulfate (Plavix -) [address] [facility] Last Admin: 08/28/18 09:46 Dose: 75 mg Diltiazem HCl (Cardizem Cd -) [address] [facility] Last Admin: 08/28/18 09:45 Dose: 120 mg Docusate Sodium (Colace -) [address] [facility] Last Admin: 08/27/18 22:00 Dose: 300 mg Emollient Ointment (Aquaphor -) [address] [facility] Last Admin: 08/28/18 09:50 Dose: 1 applic Folic Acid (Folic Acid -) [address] [facility] Last Admin: 08/28/18 09:46 Dose: 1 mg Guaifenesin (Mucinex -) [address] [facility] Last Admin: 08/28/18 09:46 Dose: 600 mg Azithromycin (Zithromax 500mg Ivpb (Pre-Docked)) 500 mg in 250 mls @ 250 mls/ hr IVPB DAILY [facility] Last Admin: 08/28/18 09:44 Dose: 250 mls/hr Ceftriaxone Sodium 1 gm/ (Dextrose) 50 mls @ 200 mls/hr IVPB DAILY [facility]; Protocol Last Admin: 08/28/18 09:45 Dose: 200 mls/hr Methylprednisolone Sodium Succinate (Solu-Medrol -) 40 mg IVPUSH Q8H-IV [facility] Last Admin: 08/28/18 09:45 Dose: 40 mg Pantoprazole Sodium (Protonix -) [address] [facility] Last Admin: 08/28/18 09:46 Dose: 40 mg Polyethylene Glycol (Miralax (For Daily Use) -) [address] [facility] Last Admin: 08/28/18 09:49 Dose: 17 gm Tamsulosin HCl (Flomax -) 0.8 mg PO DAILY@0830 [facility] Last Admin: 08/28/18 09:45 Dose: 0.8 mg assmt / plan # COPD IV steroids / PPI/ nebulizer IV antibiotics per ID Pre and post done- Oxygen needed #PNA - CAP ? continue abx rocephin / azithromycin #A fib rate controlled although episodes of inc HR CCB and BB on A/C --Eliquis #BPH cont flomax # CAD elevated TNI - no c/o CP however episodes hypoxia appreciate cardiology eval Declines testing at this time Plan- Possible DC home tomorrow on Oxygen, PO steroids and antibiotics. 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 Code(s): Z22.322 - CARRIER OR SUSPECTED CARRIER OF METHICILLIN RESIS STAPH (5) Respiratory failure with hypoxia and hypercapnia Code(s): J96.91 - RESPIRATORY FAILURE, UNSPECIFIED WITH HYPOXIA; J96.92 - RESPIRATORY FAILURE, UNSPECIFIED WITH HYPERCAPNIA (6) Atrial fibrillation Code(s): I48.91 - UNSPECIFIED ATRIAL FIBRILLATION Qualifiers: (7) Coronary artery disease Code(s): I25.10 - ATHSCL HEART DISEASE OF [place] CORONARY ARTERY W/O ANG PCTRS Qualifiers: (8) Emphysema of lung Code(s): J43.9 - EMPHYSEMA, UNSPECIFIED (9) HTN (hypertension) Code(s): I10 - ESSENTIAL (PRIMARY) HYPERTENSION Qualifiers: Hypertension type: essential hypertension Qualified Code(s): I10 - Essential (primary) hypertension
--- NOTE | 2018-08-28 11:44 | PN ---
Progress Note, Physician History of Present Illness: pulmonary alert,comfortable,-resp distress,-cp, less cough,remains on hypoxemic on ra - Current Medication List Current Medications: Active Medications Albuterol/Ipratropium (Duoneb -) 1 amp NEB RQID [facility] Last Admin: 08/28/18 07:35 Dose: 1 amp Alprazolam (Xanax -) 1 mg PO QID [facility] Last Admin: 08/28/18 09:46 Dose: 1 mg Apixaban (Eliquis -) 5 mg PO BID [facility] Last Admin: 08/28/18 09:46 Dose: 5 mg Atenolol (Tenormin -) 50 mg PO DAILY [facility] Last Admin: 08/28/18 09:46 Dose: 50 mg Atorvastatin Calcium (Lipitor -) 40 mg PO HS [facility] Last Admin: 08/27/18 21:59 Dose: 40 mg Budesonide/Formoterol Fumarate (Symbicort 80/4.5mcg -) 2 puff IH BID [facility] Last Admin: 08/28/18 09:46 Dose: 2 puff Clopidogrel Bisulfate (Plavix -) 75 mg PO DAILY [facility] Last Admin: 08/28/18 09:46 Dose: 75 mg Diltiazem HCl (Cardizem Cd -) 120 mg PO DAILY [facility] Last Admin: 08/28/18 09:45 Dose: 120 mg Docusate Sodium (Colace -) 300 mg PO HS [facility] Last Admin: 08/27/18 22:00 Dose: 300 mg Emollient Ointment (Aquaphor -) 1 applic TP BID [facility] Last Admin: 08/28/18 09:50 Dose: 1 applic Folic Acid (Folic Acid -) 1 mg PO DAILY [facility] Last Admin: 08/28/18 09:46 Dose: 1 mg Guaifenesin (Mucinex -) 600 mg PO BID [facility] Last Admin: 08/28/18 09:46 Dose: 600 mg Azithromycin (Zithromax 500mg Ivpb (Pre-Docked)) 500 mg in 250 mls @ 250 mls/ hr IVPB DAILY [facility] Last Admin: 08/28/18 09:44 Dose: 250 mls/hr Ceftriaxone Sodium 1 gm/ (Dextrose) 50 mls @ 200 mls/hr IVPB DAILY [facility]; Protocol Last Admin: 08/28/18 09:45 Dose: 200 mls/hr Methylprednisolone Sodium Succinate (Solu-Medrol -) 40 mg IVPUSH Q8H-IV [facility] Last Admin: 08/28/18 09:45 Dose: 40 mg Pantoprazole Sodium (Protonix -) 40 mg PO DAILY [facility] Last Admin: 08/28/18 09:46 Dose: 40 mg Polyethylene Glycol (Miralax (For Daily Use) -) 17 gm PO DAILY [facility] Last Admin: 08/28/18 09:49 Dose: 17 gm Tamsulosin HCl (Flomax -) 0.8 mg PO DAILY@0830 [facility] Last Admin: 08/28/18 09:45 Dose: 0.8 mg - Objective Vital Signs: Vital Signs Temperature 97.5 F L 08/28/18 06:00 Pulse Rate 84 08/28/18 10:56 Respiratory Rate 18 08/28/18 06:00 Blood Pressure 139/63 08/28/18 06:00 O2 Sat by Pulse Oximetry (%) 90 L 08/28/18 10:56 Constitutional: Yes: Well Nourished, Calm Eyes: Yes: WNL HENT: Yes: WNL Neck: Yes: WNL Cardiovascular: Yes: Regular Rate and Rhythm, S1, S2 Respiratory: Yes: Rhonchi (scattered rhonchi) Gastrointestinal: Yes: Normal Bowel Sounds, Soft Extremities: Yes: WNL Edema: No Labs: CBC, BMP Problem List - Problems (1) COPD exacerbation Code(s): J44.1 - CHRONIC OBSTRUCTIVE PULMONARY DISEASE W (ACUTE) EXACERBATION (2) Pneumonia Code(s): J18.9 - PNEUMONIA, UNSPECIFIED ORGANISM Qualifiers: Pneumonia type: due to unspecified organism Laterality: right Lung location: lower lobe of lung Qualified Code(s): J18.1 - Lobar pneumonia, unspecified organism (3) Respiratory failure with hypoxia and hypercapnia Code(s): J96.91 - RESPIRATORY FAILURE, UNSPECIFIED WITH HYPOXIA; J96.92 - RESPIRATORY FAILURE, UNSPECIFIED WITH HYPERCAPNIA (4) Atrial fibrillation Code(s): I48.91 - UNSPECIFIED ATRIAL FIBRILLATION Qualifiers: (5) Coronary artery disease Code(s): I25.10 - ATHSCL HEART DISEASE OF [place] CORONARY ARTERY W/O ANG PCTRS Qualifiers: (6) Emphysema of lung Code(s): J43.9 - EMPHYSEMA, UNSPECIFIED (7) Acute on chronic respiratory failure with hypoxia and hypercapnia Code(s): J96.21 - ACUTE AND CHRONIC RESPIRATORY FAILURE WITH HYPOXIA; J96.22 - ACUTE AND CHRONIC RESPIRATORY FAILURE WITH HYPERCAPNIA Assessment/Plan IMP ACUTE ON CHRONIC HYPOXEMIC/HYPERCAPNEIC RESPIRATORY FAILURE improving PNEUMONIA COPD EXACERBATION HTN BPH AFIB LUNG NODULE/MASS PLAN ABX INHALED BRONCHODILATORS O2 STEROID TAPER HOME O2 ELIQUIS F/U CHEST CT 4-6 TO DOCUMENT RESOLUTION OF INFILTRATE/NODULE,IF NO CHANGE PET SCAN ,CT GUIDED BX RLL MASS DR COREAS Problem List - Problems (1) COPD exacerbation Code(s): J44.1 - CHRONIC OBSTRUCTIVE PULMONARY DISEASE W (ACUTE) EXACERBATION (2) Pneumonia Code(s): J18.9 - PNEUMONIA, UNSPECIFIED ORGANISM Qualifiers: Pneumonia type: due to unspecified organism Laterality: right Lung location: lower lobe of lung Qualified Code(s): J18.1 - Lobar pneumonia, unspecified organism (3) Respiratory failure with hypoxia and hypercapnia Code(s): J96.91 - RESPIRATORY FAILURE, UNSPECIFIED WITH HYPOXIA; J96.92 - RESPIRATORY FAILURE, UNSPECIFIED WITH HYPERCAPNIA (4) Atrial fibrillation Code(s): I48.91 - UNSPECIFIED ATRIAL FIBRILLATION Qualifiers: (5) Coronary artery disease Code(s): I25.10 - ATHSCL HEART DISEASE OF [place] CORONARY ARTERY W/O ANG PCTRS Qualifiers: (6) Emphysema of lung Code(s): J43.9 - EMPHYSEMA, UNSPECIFIED (7) Acute on chronic respiratory failure with hypoxia and hypercapnia Code(s): J96.21 - ACUTE AND CHRONIC RESPIRATORY FAILURE WITH HYPOXIA; J96.22 - ACUTE AND CHRONIC RESPIRATORY FAILURE WITH HYPERCAPNIA
--- NOTE | 2018-08-28 11:48 | PN ---
Progress Note (short form) - Note Progress Note: s: breathing improving, walked with PT without dyspnea again today. no chest pain, palps, dizziness. says he wants to go home Vital Signs: Vital Signs Period Temp Pulse Resp BP Sys/Cleaning Pulse Ox Last 24 Hr 97.3 F-97.6 F 56-84 16-20 116-139/53-73 90-96 Constitutional: Yes: Well Nourished, No Distress Eyes: No: Sclera Icterus Respiratory: Yes: CTA Bilaterally . No: Accessory Muscle Use, Rales, Rhonchi Gastrointestinal: Yes: Normal Bowel Sounds. No: Distention, Hepatomegaly, Palpable Mass, Tenderness Cardiovascular: Yes: Regular Rate and Rhythm JVD: No Carotid Bruit: No PMI: Non-Displaced Heart Sounds: Yes: S1, S2. No: Gallop Murmur: No: Systolic Murmur, Diastolic Murmur Extremities: No: Cool, Cyanosis Edema: No Peripheral Pulses: 2+ Left Carotid, 2+ Right Carotid, 2+ Left Doralis Pedis, 2+ Right Dorsalis Pedis Integumentary: No: Jaundice Neurological: Yes: Alert. No: Oriented (not to trump or year), Seizure Psychiatric: No: Agitated Current Medications Generic Name Dose Route Start Last Admin Trade Name Jcq PRN Reason Stop Dose Admin Albuterol/Ipratropium 1 amp 08/21/18 16:00 08/27/18 07:34 Duoneb - NEB 1 amp RQID [facility] Administration Alprazolam 1 mg 08/21/18 18:00 08/26/18 21:54 Xanax - PO 1 mg QID GE Administration Apixaban 5 mg 08/21/18 13:15 08/26/18 21:54 Eliquis - PO 5 mg BID GE Administration Atenolol 50 mg 08/21/18 13:15 08/26/18 11:02 Tenormin - PO 50 mg DAILY GE Administration Atorvastatin Calcium 40 mg 08/24/18 22:00 08/26/18 21:54 Lipitor - PO 40 mg HS GE Administration Budesonide/Formoterol Fumarate 2 puff 08/21/18 22:00 08/26/18 21:54 Symbicort 80/4.5mcg - IH 2 puff BID GE Administration Clopidogrel Bisulfate 75 mg 08/25/18 10:00 08/26/18 11:03 Plavix - PO 75 mg DAILY [facility] Administration Diltiazem HCl 120 mg 08/22/18 10:00 08/26/18 11:03 Cardizem Cd - PO 120 mg DAILY [facility] Administration Docusate Sodium 300 mg 08/21/18 22:00 08/26/18 21:54 Colace - PO 300 mg HS GE Administration Emollient Ointment 1 applic 08/21/18 22:00 08/26/18 21:53 Aquaphor - TP 1 applic BID [facility] Administration Folic Acid 1 mg 08/22/18 10:00 08/26/18 11:03 Folic Acid - PO 1 mg DAILY [facility] Administration Guaifenesin 600 mg 08/21/18 22:00 08/26/18 21:54 Mucinex - PO 600 mg BID GE Administration Azithromycin 500 mg in 250 mls @ 250 mls/hr 08/22/18 10:00 08/26/18 11:02 Zithromax 500mg Ivpb (Pre-Docked) IVPB 250 mls/hr DAILY [facility] Administration Ceftriaxone Sodium 1 gm/ 50 mls @ 200 mls/hr 08/22/18 10:00 08/26/18 11:03 Dextrose IVPB 200 mls/hr DAILY [facility] Administration Protocol Methylprednisolone Sodium Succinate 40 mg 08/24/18 22:00 08/27/18 01:20 Solu-Medrol - IVPUSH 40 mg Q8H-IV GE Administration Pantoprazole Sodium 40 mg 08/21/18 13:15 08/26/18 11:03 Protonix - PO 40 mg DAILY [facility] Administration Polyethylene Glycol 17 gm 08/21/18 13:15 08/26/18 11:03 Miralax (For Daily Use) - PO 17 gm DAILY [facility] Administration Tamsulosin HCl 0.8 mg 08/22/18 08:30 08/26/18 11:02 Flomax - PO 0.8 mg DAILY@0830 GE Administration CBC, BMP 08/26/18 06:30 08/26/18 06:30 Assessment/Plan ECG 08/21: NSR, ? old ASMI, no ST-Ts. no change vs prior ECG 08/23: NSR, PVCs, new TWIs V2/V3 (QT normal) Echo 02/2018: nl lv/rv, mild tr, mod phtn echo 07/2018 nl LV/RV fn, mild MR, mod TR, PASP at least 41 mmHg tele: sinus sob, congested cough, copd, pna -being treated by pulm, sob improving -BNP 2100, vs 1700 previous = no signif change NSTEMI: -trop 0.2-->0.8-->0.4. rxdl-nrt-inrc pattern potentially c/w small ACS event. though cannot exclude Type II [place] with this low-range troponin (on bipap at times , ? was hypoxic at times not measured, including at home) vs sepsis -nonspecific TWAs developed on serial ECG here (no ST segment shifts) -echo - nl LV function -cont hi intensity statin (atorva 40, in elderly) -continue home plavix, plus NOAC agent -continue home b-lainey -plan was for nuclear stress test for risk stratification after resp issues resolved but in speaking with pt today he declines stress test and says he just wants to go home. cad: -unclear details, pt said he had cath at [facility] about 10 yrs ago and was told he had narrowing in artery but that due to its location it could not be fixed. he says he was started on plavix and told to continue. -abundant data suggests it is reasonable to stop anti-PLT agents even after remote stenting in stable CAD patients who are on warfarin or NOACs, and many experts recommend this raymond in elderly or other higher bleeding risk. given this pt's age, would not recommend continuing plavix with the above history of med managed CAD -however, will continue for now given the ? of new ACS event here afib/flutter -in sr here, with a paroxysm of AT/AFL rapid HR 120s on 08/23 -cont same AVN lainey meds for now (atenolol 50, dilt 120). -monitor tele--will need incr CCB dose if frequent rapid PAF/flutter -cont home eliquis htn: -bp controlled -same meds cardiac cox stable
--- NOTE | 2018-08-28 15:18 | PN ---
Progress Note, Physician History of Present Illness: AWAKE, ALERT OOB IN CHAIR OFFERS NO COMPLAINTS NO C/O CHEST PAIN/ DYSPNEA/ COUGH NO FEVER/ CHILLS AFEBRILE WBC WNL - Current Medication List Current Medications: Active Medications Albuterol/Ipratropium (Duoneb -) 1 amp NEB RQID [facility] Last Admin: 08/28/18 11:15 Dose: 1 amp Alprazolam (Xanax -) 1 mg PO QID [facility] Last Admin: 08/28/18 13:56 Dose: 1 mg Apixaban (Eliquis -) 5 mg PO BID [facility] Last Admin: 08/28/18 09:46 Dose: 5 mg Atenolol (Tenormin -) 50 mg PO DAILY [facility] Last Admin: 08/28/18 09:46 Dose: 50 mg Atorvastatin Calcium (Lipitor -) 40 mg PO HS [facility] Last Admin: 08/27/18 21:59 Dose: 40 mg Budesonide/Formoterol Fumarate (Symbicort 80/4.5mcg -) 2 puff IH BID [facility] Last Admin: 08/28/18 09:46 Dose: 2 puff Clopidogrel Bisulfate (Plavix -) 75 mg PO DAILY [facility] Last Admin: 08/28/18 09:46 Dose: 75 mg Diltiazem HCl (Cardizem Cd -) 120 mg PO DAILY [facility] Last Admin: 08/28/18 09:45 Dose: 120 mg Docusate Sodium (Colace -) 300 mg PO HS [facility] Last Admin: 08/27/18 22:00 Dose: 300 mg Emollient Ointment (Aquaphor -) 1 applic TP BID [facility] Last Admin: 08/28/18 09:50 Dose: 1 applic Folic Acid (Folic Acid -) 1 mg PO DAILY [facility] Last Admin: 08/28/18 09:46 Dose: 1 mg Guaifenesin (Mucinex -) 600 mg PO BID [facility] Last Admin: 08/28/18 09:46 Dose: 600 mg Azithromycin (Zithromax 500mg Ivpb (Pre-Docked)) 500 mg in 250 mls @ 250 mls/ hr IVPB DAILY [facility] Last Admin: 08/28/18 09:44 Dose: 250 mls/hr Ceftriaxone Sodium 1 gm/ (Dextrose) 50 mls @ 200 mls/hr IVPB DAILY [facility]; Protocol Last Admin: 08/28/18 09:45 Dose: 200 mls/hr Methylprednisolone Sodium Succinate (Solu-Medrol -) 40 mg IVPUSH Q8H-IV [facility] Last Admin: 08/28/18 09:45 Dose: 40 mg Pantoprazole Sodium (Protonix -) 40 mg PO DAILY [facility] Last Admin: 08/28/18 09:46 Dose: 40 mg Polyethylene Glycol (Miralax (For Daily Use) -) 17 gm PO DAILY [facility] Last Admin: 08/28/18 09:49 Dose: 17 gm Tamsulosin HCl (Flomax -) 0.8 mg PO DAILY@0830 [facility] Last Admin: 08/28/18 09:45 Dose: 0.8 mg - Objective Vital Signs: Vital Signs Temperature 97.7 F 08/28/18 14:20 Pulse Rate 70 08/28/18 14:20 Respiratory Rate 18 08/28/18 14:20 Blood Pressure 126/54 L 08/28/18 14:20 O2 Sat by Pulse Oximetry (%) 90 L 08/28/18 10:56 Constitutional: Yes: No Distress Eyes: Yes: Conjunctiva Clear Cardiovascular: Yes: Regular Rate and Rhythm, S1, S2 Respiratory: Yes: Diminished Gastrointestinal: Yes: Normal Bowel Sounds, Soft Labs: CBC, BMP 08/26/18 06:30 08/26/18 06:30 INR, PTT INR 1.57 (0.83-1.09) H 08/21/18 11:24 Assessment/Plan BASILAR PNEUMONIA COPD EXACERBATION FEVER- RESOLVED CONTINUE CEFTRIAXONE/ ZITHROMAX ADDITIONAL 24-48HR THEN OBSERVE OFF
[2018-08-28] MEDS: DOCUSATE SODIUM 100 MG CAPSULE (FP) PO SCH (22:25)
[2018-08-28] MEDS: ATORVASTATIN CA 40 MG TABLET (FP) PO SCH (22:26)
[2018-08-29] MEDS: methylPREDNISolone NA SUCC 40 MG/1 ML VIAL IVPUSH SCH ×2 (02:20→10:45)
[2018-08-29 07:44] LABS: HEMATOCRIT 34.4 % (35.4-49); HEMOGLOBIN 11.3 GM/dL (11.7-16.9); LYMPH % 1.9 % (8-40); MCH 26.9 pg (25.7-33.7); MCHC 32.9 g/dl (32.0-35.9); MEAN CELL VOLUME 81.9 fl (80-96); MEAN PLT VOLUME 8.2 fl (7.5-11.1); MONO % 3.4 % (3.8-10.2); NEUT % 94.7 % (42.8-82.8); PLATELET COUNT 264 K/MM3 (134-434); RDW 15.8 % (11.9-15.9); WHITE BLOOD COUNT 13.7 K/mm3 (4.0-10.0)
[2018-08-29] MEDS: ALBUTEROL SO4 2.5/IPRATROPIUM 0.5 INH SOL 3 ML VIAL.NEB. NEB SCH ×3 (07:45→16:15)
[2018-08-29 08:55] LABS: ANION GAP 4 MMOL/L (8-16); BLOOD UREA NITROGEN 15 mg/dL (7-18); CALCIUM 7.9 mg/dL (8.5-10.1); CHLORIDE 97 mmol/L (98-107); CO2 36 mmol/L (21-32); CREATININE 0.4 mg/dL (0.55-1.3); GLUCOSE,RANDOM 113 mg/dL (74-106); POTASSIUM 4.4 mmol/L (3.5-5.1); SODIUM 137 mmol/L (136-145)
[2018-08-29] MEDS ORDERED: PT OWN MED DRAWER 7, Y5N ONE (10:39)
[2018-08-29] MEDS ORDERED: DEXTROSE 5%-WATER - 50 ML IVPB ONE (10:39)
[2018-08-29] MEDS ORDERED: cefTRIAXone SODIUM 1 GM VIAL ONE (10:39)
[2018-08-29] MEDS: CEFTRIAXONE 1 GM in DEXTROSE 5%-WATER - 50 ML IVPB SCH (10:43)
[2018-08-29] MEDS: guaiFENesin 600 MG TABLET.ER (FP) PO SCH (10:46)
[2018-08-29] MEDS: CLOPIDOGREL BISULFATE 75 MG TABLET (FP) PO SCH (10:48)
[2018-08-29] MEDS: FOLIC ACID 1 MG TABLET (FP) PO SCH (10:48)
[2018-08-29] MEDS: TAMSULOSIN HCL 0.4 MG CAP PO SCH (10:48)
[2018-08-29] MEDS: ALPRAZolam 2 MG TABLET PO SCH ×2 (10:49→14:02)
[2018-08-29] MEDS: ATENOLOL 50 MG TABLET (FP) PO SCH (10:49)
[2018-08-29] MEDS: APIXABAN 5 MG TABLET PO SCH (10:49)
[2018-08-29] MEDS: PANTOPRAZOLE 40 MG TABLET (FP) PO SCH (10:49)
[2018-08-29] MEDS: BUDESONIDE/FORMETEROL FUMARATE 80/4.5 mcg INHALER IH SCH (10:50)
[2018-08-29] MEDS: POLYETHYLENE GLYCOL 3350 119 GM BTL PO SCH (10:51)
[2018-08-29] MEDS: MINERAL OIL/PET HY-PHL TOPICAL OINTMENT 454 GM JAR TP SCH (10:52)
--- NOTE | 2018-08-29 11:23 | PN ---
Progress Note, Physician History of Present Illness: No CV complaints Breathing better, no chest pains Tele: NSR 80s with PVCs - Current Medication List Current Medications: Active Medications Albuterol/Ipratropium (Duoneb -) 1 amp NEB RQID [facility] Last Admin: 08/29/18 07:45 Dose: 1 amp Alprazolam (Xanax -) 1 mg PO QID [facility] Last Admin: 08/29/18 10:49 Dose: 1 mg Apixaban (Eliquis -) 5 mg PO BID [facility] Last Admin: 08/29/18 10:49 Dose: 5 mg Atenolol (Tenormin -) 50 mg PO DAILY [facility] Last Admin: 08/29/18 10:49 Dose: 50 mg Atorvastatin Calcium (Lipitor -) 40 mg PO HS [facility] Last Admin: 08/28/18 22:26 Dose: 40 mg Budesonide/Formoterol Fumarate (Symbicort 80/4.5mcg -) 2 puff IH BID [facility] Last Admin: 08/29/18 10:50 Dose: 2 puff Clopidogrel Bisulfate (Plavix -) 75 mg PO DAILY [facility] Last Admin: 08/29/18 10:48 Dose: 75 mg Diltiazem HCl (Cardizem Cd -) 120 mg PO DAILY [facility] Last Admin: 08/29/18 10:46 Dose: 120 mg Docusate Sodium (Colace -) 300 mg PO HS [facility] Last Admin: 08/28/18 22:25 Dose: 300 mg Emollient Ointment (Aquaphor -) 1 applic TP BID [facility] Last Admin: 08/29/18 10:52 Dose: 1 applic Folic Acid (Folic Acid -) 1 mg PO DAILY [facility] Last Admin: 08/29/18 10:48 Dose: 1 mg Guaifenesin (Mucinex -) 600 mg PO BID [facility] Last Admin: 08/29/18 10:46 Dose: 600 mg Ceftriaxone Sodium 1 gm/ (Dextrose) 50 mls @ 200 mls/hr IVPB DAILY [facility]; Protocol Last Admin: 08/29/18 10:43 Dose: 200 mls/hr Methylprednisolone Sodium Succinate (Solu-Medrol -) 40 mg IVPUSH Q8H-IV [facility] Last Admin: 08/29/18 10:45 Dose: 40 mg Pantoprazole Sodium (Protonix -) 40 mg PO DAILY [facility] Last Admin: 08/29/18 10:49 Dose: 40 mg Polyethylene Glycol (Miralax (For Daily Use) -) 17 gm PO DAILY [facility] Last Admin: 08/29/18 10:51 Dose: Not Given Tamsulosin HCl (Flomax -) 0.8 mg PO DAILY@0830 [facility] Last Admin: 08/29/18 10:48 Dose: 0.8 mg - Objective Vital Signs: Vital Signs Temperature 97.4 F L 08/29/18 06:00 Pulse Rate 58 L 08/29/18 10:00 Respiratory Rate 22 H 08/29/18 10:00 Blood Pressure 144/72 08/29/18 10:00 O2 Sat by Pulse Oximetry (%) 98 08/28/18 21:00 Constitutional: Yes: No Distress, Calm, Cachectic Eyes: Yes: WNL HENT: Yes: WNL Neck: Yes: WNL Cardiovascular: Yes: Regular Rate and Rhythm Respiratory: Yes: CTA Bilaterally, Diminished Gastrointestinal: Yes: Normal Bowel Sounds Musculoskeletal: Yes: WNL Extremities: Yes: WNL Edema: No Labs: CBC, BMP 08/29/18 06:30 08/29/18 06:30 INR, PTT INR 1.57 (0.83-1.09) H 08/21/18 11:24 Assessment/Plan NSTEMI: -echo - nl LV function -cont hi intensity statin (atorva 40, in elderly) -continue home plavix, plus NOAC agent -continue home b-lainey -As per Dr. Darnell-plan was for nuclear stress test for risk stratification after resp issues resolved but in speaking with pt today he declines stress test and says he just wants to go home. cad: Plavix and NOAC afib/flutter -in sr here, with a paroxysm of AT/AFL rapid HR 120s on 08/23 -cont same AVN lainey meds for now (atenolol 50, dilt 120). -Tele with good rate control -cont home eliquis cardiac standoint remains stable
[2018-08-29 11:27] LABS: ANISOCYTOSIS 1+; MACROCYTOSIS 0; PLATELET ESTIMATE NORMAL
--- NOTE | 2018-08-29 12:26 | PN ---
Progress Note (short form) - Note Progress Note: OOB to chair. Still with some congested cough. No CP. No acute events overnight. Intake & Output 08/26/18 08/27/18 08/28/18 08/29/18 23:59 23:59 23:59 23:59 Intake Total 1250 1150 300 560 Output Total 1250 3100 2100 950 Balance 0 -1950 -1800 -390 Last Vital Signs Temp Pulse Resp BP Pulse Ox 97.4 F L 58 L 22 H 144/72 98 08/29/18 06:00 08/29/18 10:00 08/29/18 10:00 08/29/18 10:00 08/28/18 21:00 Active Medications Albuterol/Ipratropium (Duoneb -) 1 amp NEB RQID [facility] Last Admin: 08/29/18 07:45 Dose: 1 amp Alprazolam (Xanax -) 1 mg PO QID [facility] Last Admin: 08/29/18 10:49 Dose: 1 mg Apixaban (Eliquis -) 5 mg PO BID [facility] Last Admin: 08/29/18 10:49 Dose: 5 mg Atenolol (Tenormin -) 50 mg PO DAILY [facility]S [facility] Last Admin: 08/29/18 10:49 Dose: 50 mg Atorvastatin Calcium (Lipitor -) 40 mg PO HS [facility] 234 BEDS [facility] Last Admin: 08/28/18 22:26 Dose: 40 mg Budesonide/Formoterol Fumarate (Symbicort 80/4.5mcg -) 2 puff IH BID [facility] 234 [facility]S [facility] Last Admin: 08/29/18 10:50 Dose: 2 puff Clopidogrel Bisulfate (Plavix -) 75 mg PO DAILY [facility] 234 [facility]S [facility] Last Admin: 08/29/18 10:48 Dose: 75 mg Diltiazem HCl (Cardizem Cd -) 120 mg PO DAILY [facility] 234 [facility]S [facility] Last Admin: 08/29/18 10:46 Dose: 120 mg Docusate Sodium (Colace -) 300 mg PO HS [facility] 234 B[facility]S [facility] Last Admin: 08/28/18 22:25 Dose: 300 mg Emollient Ointment (Aquaphor -) 1 applic TP BID [facility]S [facility] Last Admin: 08/29/18 10:52 Dose: 1 applic Folic Acid (Folic Acid -) 1 mg PO DAILY [facility]S [facility] Last Admin: 08/29/18 10:48 Dose: 1 mg Guaifenesin (Mucinex -) 600 mg PO BID [facility] 234 B[facility]S [facility] Last Admin: 08/29/18 10:46 Dose: 600 mg Ceftriaxone Sodium 1 gm/ (Dextrose) 50 mls @ 200 mls/hr IVPB DAILY [facility] 234 BEDS [facility]; Protocol Last Admin: 08/29/18 10:43 Dose: 200 mls/hr Methylprednisolone Sodium Succinate (Solu-Medrol -) 40 mg IVPUSH Q8H-IV [facility] 234 BEDS [facility] Last Admin: 08/29/18 10:45 Dose: 40 mg Pantoprazole Sodium (Protonix -) 40 mg PO DAILY [facility] 234 B[facility]S [facility] Last Admin: 08/29/18 10:49 Dose: 40 mg Polyethylene Glycol (Miralax (For Daily Use) -) 17 gm PO DAILY [facility] 234 BEDS [facility] Last Admin: 08/29/18 10:51 Dose: Not Given Tamsulosin HCl (Flomax -) 0.8 mg PO DAILY@0830 [facility] 234 BEDS AT [facility] Last Admin: 08/29/18 10:48 Dose: 0.8 mg Constitutional: Yes: Thin, NAD Eyes: Yes: WNL HENT: Yes: WNL Neck: Yes: WNL Cardiovascular: Yes: Regular Rate and Rhythm, S1, S2 Respiratory: Yes: Scattered Rhonchi Gastrointestinal: Yes: Normal Bowel Sounds, Soft Extremities: Yes: WNL Edema: No Labs: Laboratory Results - last 24 hr 08/29/18 08/29/18 06:30 06:30 WBC 13.7 H RBC 4.20 Hgb 11.3 L Hct 34.4 L MCV 81.9 MCH 26.9 MCHC 32.9 RDW 15.8 Plt Count 264 MPV 8.2 Absolute Neuts (auto) 13.0 H Neutrophils % 94.7 H Neutrophils % (Manual) 91.8 H Band Neutrophils % 0.0 Lymphocytes % 1.9 L D Lymphocytes % (Manual) 3.1 L D Monocytes % 3.4 L Monocytes % (Manual) 5 Eosinophils % 0.0 Eosinophils % (Manual) 0.0 D Basophils % 0.0 Basophils % (Manual) 0.0 Myelocytes % (Man) 0 Promyelocytes % (Man) 0 Blast Cells % (Manual) 0 Nucleated RBC % 0 Metamyelocytes 0 Hypochromia 0 Platelet Estimate Normal Platelet Comment Present Polychromasia 0 Poikilocytosis 0 Anisocytosis 1+ Microcytosis 0 Macrocytosis 0 [place] Cells 1+ Sodium 137 Potassium 4.4 Chloride 97 L Carbon Dioxide 36 H Anion Gap 4 L BUN 15 Creatinine 0.4 L Creat Clearance w eGFR > 60 Random Glucose 113 H Calcium 7.9 L Problem List - Problems (1) COPD exacerbation Code(s): J44.1 - CHRONIC OBSTRUCTIVE PULMONARY DISEASE W (ACUTE) EXACERBATION (2) Pneumonia Code(s): J18.9 - PNEUMONIA, UNSPECIFIED ORGANISM Qualifiers: Pneumonia type: due to unspecified organism Laterality: right Lung location: lower lobe of lung Qualified Code(s): J18.1 - Lobar pneumonia, unspecified organism (3) Respiratory failure with hypoxia and hypercapnia Code(s): J96.91 - RESPIRATORY FAILURE, UNSPECIFIED WITH HYPOXIA; J96.92 - RESPIRATORY FAILURE, UNSPECIFIED WITH HYPERCAPNIA (4) Atrial fibrillation Code(s): I48.91 - UNSPECIFIED ATRIAL FIBRILLATION Qualifiers: (5) Coronary artery disease Code(s): I25.10 - ATHSCL HEART DISEASE OF [place] CORONARY ARTERY W/O ANG PCTRS Qualifiers: (6) Emphysema of lung Code(s): J43.9 - EMPHYSEMA, UNSPECIFIED (7) Acute on chronic respiratory failure with hypoxia and hypercapnia Code(s): J96.21 - ACUTE AND CHRONIC RESPIRATORY FAILURE WITH HYPOXIA; J96.22 - ACUTE AND CHRONIC RESPIRATORY FAILURE WITH HYPERCAPNIA Assessment/Plan IMP ACUTE ON CHRONIC HYPOXEMIC/HYPERCAPNEIC RESPIRATORY FAILURE improving PNEUMONIA COPD EXACERBATION HTN BPH AFIB LUNG NODULE/MASS PLAN ABX INHALED BRONCHODILATORS O2 STEROID TAPER HOME O2 ELIQUIS F/U CHEST CT 4-6 TO DOCUMENT RESOLUTION OF INFILTRATE/NODULE,IF NO CHANGE PET SCAN ,CT GUIDED BX RLL MASS Dr Turner
--- NOTE | 2018-08-29 15:04 | PN ---
Progress Note (short form) - Note Progress Note: sititing up O2 in place denies CP at bed side O2 was delivered yesterday Vital Signs Period Temp Pulse Resp BP Sys/Cleaning Pulse Ox Last 24 Hr 97.3 F-97.8 F 59-69 16-20 113-124/46-60 96 neck heart S1/S2 lungs decreased BS abd soft non tender ext no calf tenderness CBC, BMP 08/29/18 06:30 08/29/18 06:30 CBC, BMP 08/22/18 06:30 08/22/18 06:30 Microbiology 08/27/18 03:59 Urine For Antigen Detection Legionella Antigen - Final 08/27/18 03:59 Urine For Antigen Detection Streptococcus pneumoniae Antigen (M - Final 08/21/18 11:00 Blood - Peripheral Venous Blood Culture - Final NO GROWTH AFTER 5 DAYS INCUBATION 08/21/18 11:30 Blood - Peripheral Venous Blood Culture - Final NO GROWTH AFTER 5 DAYS INCUBATION 08/21/18 13:22 Urine - Urine Clean Catch Urine Culture - Final Yeast Like Organism Pseudomonas Species Active Medications Albuterol/Ipratropium (Duoneb -) 1 amp NEB RQID [facility] Last Admin: 08/25/18 20:27 Dose: 1 amp Alprazolam (Xanax -) 1 mg PO QID [facility] Last Admin: 08/25/18 21:29 Dose: 1 mg Apixaban (Eliquis -) 5 mg PO BID [facility] Last Admin: 08/25/18 21:29 Dose: 5 mg Atenolol (Tenormin -) 50 mg PO DAILY [facility] Last Admin: 08/25/18 10:14 Dose: 50 mg Atorvastatin Calcium (Lipitor -) 40 mg PO HS [facility] Last Admin: 08/25/18 21:29 Dose: 40 mg Budesonide/Formoterol Fumarate (Symbicort 80/4.5mcg -) 2 puff IH BID [facility] Last Admin: 08/25/18 21:30 Dose: 2 puff Clopidogrel Bisulfate (Plavix -) 75 mg PO DAILY [facility] Last Admin: 08/25/18 10:14 Dose: 75 mg Diltiazem HCl (Cardizem Cd -) 120 mg PO DAILY [facility] Last Admin: 08/25/18 10:14 Dose: 120 mg Docusate Sodium (Colace -) 300 mg PO [facility] Last Admin: 08/25/18 21:29 Dose: 300 mg Emollient Ointment (Aquaphor -) 1 applic TP BID [facility] Last Admin: 08/25/18 21:29 Dose: 1 applic Folic Acid (Folic Acid -) 1 mg PO DAILY [facility] Last Admin: 08/25/18 10:14 Dose: 1 mg Guaifenesin (Mucinex -) 600 mg PO BID [facility] Last Admin: 08/25/18 21:29 Dose: 600 mg Azithromycin (Zithromax 500mg Ivpb (Pre-Docked)) 500 mg in 250 mls @ 250 mls/ hr IVPB DAILY [facility] Last Admin: 08/25/18 10:13 Dose: 250 mls/hr Ceftriaxone Sodium 1 gm/ (Dextrose) 50 mls @ 200 mls/hr IVPB DAILY [facility]; Protocol Last Admin: 08/25/18 10:13 Dose: 200 mls/hr Methylprednisolone Sodium Succinate (Solu-Medrol -) 40 mg IVPUSH Q8H-IV [facility] Last Admin: 08/25/18 18:05 Dose: 40 mg Pantoprazole Sodium (Protonix -) 40 mg PO DAILY [facility] Last Admin: 08/25/18 10:14 Dose: 40 mg Polyethylene Glycol (Miralax (For Daily Use) -) 17 gm PO DAILY [facility] Last Admin: 08/25/18 10:14 Dose: 17 gm Tamsulosin HCl (Flomax -) 0.8 mg PO DAILY@0830 [facility] Last Admin: 08/25/18 08:57 Dose: 0.8 mg assmt / plan # COPD PO steroids / PPi / nebulizer / #PNA - CAP ? abx rocephin / azithromycin completed #A fib rate controlled although episodes of inc HR CCB on A/C --Eliquis #BPH flomax # CAD elevated TNI - no c/o CP however episodes hypoxia appreciate cardiology eval testing once pulm status improved and stable requires O2 at home - now delivered - was instructed in its use. 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 Code(s): Z22.322 - CARRIER OR SUSPECTED CARRIER OF METHICILLIN RESIS STAPH (5) Respiratory failure with hypoxia and hypercapnia Code(s): J96.91 - RESPIRATORY FAILURE, UNSPECIFIED WITH HYPOXIA; J96.92 - RESPIRATORY FAILURE, UNSPECIFIED WITH HYPERCAPNIA (6) Atrial fibrillation Code(s): I48.91 - UNSPECIFIED ATRIAL FIBRILLATION Qualifiers: (7) Coronary artery disease Code(s): I25.10 - ATHSCL HEART DISEASE OF [place] CORONARY ARTERY W/O ANG PCTRS Qualifiers: (8) Emphysema of lung Code(s): J43.9 - EMPHYSEMA, UNSPECIFIED (9) HTN (hypertension) Code(s): I10 - ESSENTIAL (PRIMARY) HYPERTENSION Qualifiers: Hypertension type: essential hypertension Qualified Code(s): I10 - Essential (primary) hypertension
--- NOTE | 2018-08-29 15:19 | DS ---
Physical Examination Vital Signs: Vital Signs Temperature 97.7 F 08/29/18 14:10 Pulse Rate 64 08/29/18 14:10 Respiratory Rate 16 08/29/18 14:10 Blood Pressure 133/64 08/29/18 14:10 O2 Sat by Pulse Oximetry (%) 98 08/29/18 09:00 Findings/Remarks: Henry Atkinson 73 y.o. M w/ PMHx. of COPD (not on home O2), A. Fib ( on Eliquis), HTN and BPH presenting with cough/congestion x 1 week, fever last night. Last admitted 03/2018 with respiratory failure 2/2 COPD and pneumonia/sepsis. +sick contact, with recent URI sx about several weeks ago. no travel history. no recent hospitalizations <3 months. patient with previous hospital stay for SOB - AE COPD -- requiring extensive steroids -- has not required O2 at home --- [facility] admitted for further treatment and he was evaluated for O2 at home. Arrangements for O2 at home have been made O2 was delived yesterday and was instructed in it use -- per . Constitutional: Yes: Cachectic, Mild Distress, Poor Hygeine, Thin Eyes: Yes: Conjunctiva Clear, EOM Intact HENT: Yes: Atraumatic, Normocephalic Neck: Yes: Supple, Trachea Midline Cardiovascular: Yes: Pulse Irregular Respiratory: Yes: Regular, Diminished, On Nasal O2, Poor Air Entry. No: Accessory Muscle Use Gastrointestinal: Yes: Normal Bowel Sounds ...Rectal Exam: Yes: Deferred Renal/: Yes: WNL Breast(s): Yes: WNL Musculoskeletal: Yes: WNL Extremities: No: Cyanosis, Deformity Edema: No Edema: LLE: 1+, RLE: 1+ Peripheral Pulses WNL: Yes Integumentary: Yes: WNL Neurological: Yes: Alert, Oriented, Pre-Existing Deficit ...Motor Strength: WNL Psychiatric: Yes: Alert, Oriented Labs: CBC, BMP 08/29/18 06:30 08/29/18 06:30 Discharge Summary Reason For Visit: SEPSIS,ACUTE EXACERBATION OF COPD,PNEUMONIA Current Active Problems COPD exacerbation (Acute) Elevated troponin (Acute) Pneumonia (Acute) Prophylactic measure (Acute) Condition: Fair - Instructions Referrals: Piyush Cordoba [Primary Care Provider] - Disposition: HOME - Home Medications Comprehensive Discharge Medication List: Ambulatory Orders Alprazolam [Xanax] 1 mg PO QID 03/06/18 Atenolol [Tenormin -] 50 mg PO DAILY 03/06/18 Folic Acid 1 mg PO DAILY 03/06/18 Albuterol 2.5/Ipratropium 0.5 [Duoneb -] 1 vial NEB QID PRN 03/09/18 Mineral Oil/Pet Hy-Phl [Aquaphor -] 1 applic TP BID jar 03/11/18 Budesonide/Formeterol Fumarate [SYMBICORT 80/4.5mcg -] 2 puff IH BID inhaler Diltiazem Cd [Cardizem Cd -] 120 mg PO DAILY #30 cap.cd.24h 03/19/18 Docusate Sodium [Colace -] 300 mg PO HS capsule 03/19/18 Albuterol 0.083% Nebulizer Verna [Ventolin 0.083% Nebulizer Soln -] 1 amp NEB Q8H PRN amp 04/23/18 Albuterol 2.5/Ipratropium 0.5 [Duoneb -] 1 amp NEB RQID 30 Days #120 amp Apixaban [Eliquis] 5 mg PO BID 30 Days #60 tablet 04/23/18 Tamsulosin HCl [Flomax -] 0.8 mg PO DAILY@0830 30 Days #60 cap.er.24h 04/23/18
[2018-08-29 17:42] VITALS: BP 128/53; PULSE 57; TEMP 97.8
[2018-08-30] MEDS ORDERED: predniSONE 20 MG TABLET (UD) PO SCH (10:00)
== END 2018-08-29 19:15 | disposition home or self-care (01) | DRG 193 ==
LOC: JER 10:22 → JERBED 12:42 → J4S 23:45
PROVIDERS: ADMIT Family Medicine; ATTEND Family Medicine
DX: J18.9 Pneumonia, unspecified organism (principal); I21.4 Non-ST elevation (NSTEMI) myocardial infarction; J96.21 Acute and chronic respiratory failure with hypoxia; J96.22 Acute and chronic respiratory failure with hypercapnia; J44.0 Chronic obstructive pulmonary disease with (acute) lower respiratory infection; J44.1 Chronic obstructive pulmonary disease with (acute) exacerbation; I48.92 Unspecified atrial flutter; R64 Cachexia; Z68.1 Body mass index [BMI] 19.9 or less, adult; I48.91 Unspecified atrial fibrillation; N40.0 Benign prostatic hyperplasia without lower urinary tract symptoms; I25.10 Atherosclerotic heart disease of native coronary artery without angina pectoris; I10 Essential (primary) hypertension; R91.1 Solitary pulmonary nodule; I27.20 Pulmonary hypertension, unspecified
CPT/HCPCS: 36415; 36600; 71045-TC-FY; 71250-TC; 80048; 80053; 81003; 81015; 82375; 82550; 82553; 82803; 83050; 83605; 83735; 83880; 84484; 85025; 85610; 85730; 87040; 87086; 87804; 87899; 93005; 93010; 93306-TC; 94640; 94660; 94761; 97116-GP; 97161-GP; 99285-25; J0131

== ENCOUNTER 2018-09-21 10:14 | Emergency (ER) | payer OTHER, MEDICARE ==
[2018-09-21 10:30] VITALS: TEMP 99.5; BMI 18.5
[2018-09-21] MEDS ORDERED: ALBUTEROL SO4 2.5/IPRATROPIUM 0.5 INH SOL 3 ML VIAL.NEB. NEB ONE ×4 (11:13→15:22)
[2018-09-21 12:16] LABS: BASO % 0.8 % (0-2.0); HEMATOCRIT 31.1 % (35.4-49); HEMOGLOBIN 10.3 GM/dL (11.7-16.9); LYMPH % 3.5 % (8-40); MCH 28.1 pg (25.7-33.7); MEAN CELL VOLUME 85.2 fl (80-96); MONO % 3.6 % (3.8-10.2); NEUT % 91.1 % (42.8-82.8); PLATELET COUNT 303 K/MM3 (134-434); RBC 3.65 M/mm3 (4.00-5.60); RDW 17.9 % (11.9-15.9); WHITE BLOOD COUNT 11.4 K/mm3 (4.0-10.0)
[2018-09-21 12:27] LABS: INR 1.1 (0.83-1.09)
[2018-09-21 12:40] LABS: ALBUMIN 2.7 g/dl (3.4-5.0); ALK PHOS 67 U/L (45-117); ANION GAP 1 MMOL/L (8-16); BILIRUBIN,TOTAL 0.2 mg/dL (0.2-1); BLOOD UREA NITROGEN 32 mg/dL (7-18); CALCIUM 8.1 mg/dL (8.5-10.1); CHLORIDE 98 mmol/L (98-107); CO2 37 mmol/L (21-32); CREATININE 0.4 mg/dL (0.55-1.3); GLUCOSE,RANDOM 111 mg/dL (74-106); POTASSIUM 4.7 mmol/L (3.5-5.1); SGOT/AST 14 U/L (15-37); SGPT/ALT 14 U/L (13-61); SODIUM 136 mmol/L (136-145); TOT PROT 5.9 g/dl (6.4-8.2)
--- NOTE | 2018-09-21 12:40 | PDOC ---
History of Present Illness - General Chief Complaint: Shortness of Breath Stated Complaint: Shortness of Breath Time Seen by Provider: 09/21/18 10:53 History Source: Patient Exam Limitations: No Limitations - History of Present Illness Initial Comments: 09/21/18 12:31 Patient is a 73M with history of COPD (recent admission for copd ex, pneumonia, d/c on 08/29/18), afib (on eliquis) here today complaining of 1 day of hemoptysis. Patient states that he's had a cough for weeks, on a prednisone taper. He started noticing blood in his sputum yesterday, in spots, not passing large clots. He states that he feels like the blood is coming from the back of his throat. Denies fevers, chills, nausea, vomiting. Denies chest pain, shortness of breath. Only change to sputum is the blood. Cough is chronic. Past History - Past Medical History Allergies/Adverse Reactions: Allergies Allergy/AdvReac Type Severity Reaction Status Date / Time No Known Allergies Allergy Verified 04/15/18 07:03 Home Medications: Ambulatory Orders Alprazolam [Xanax] 1 mg PO QID 03/06/18 Atenolol [Tenormin -] 50 mg PO DAILY 03/06/18 Folic Acid 1 mg PO DAILY 03/06/18 Albuterol 2.5/Ipratropium 0.5 [Duoneb -] 1 vial NEB QID PRN 03/09/18 Mineral Oil/Pet Hy-Phl [Aquaphor -] 1 applic TP BID jar 03/11/18 Budesonide/Formeterol Fumarate [SYMBICORT 80/4.5mcg -] 2 puff IH BID inhaler Diltiazem Cd [Cardizem Cd -] 120 mg PO DAILY #30 cap.cd.24h 03/19/18 Docusate Sodium [Colace -] 300 mg PO HS capsule 03/19/18 Albuterol 0.083% Nebulizer Verna [Ventolin 0.083% Nebulizer Soln -] 1 amp NEB Q8H PRN amp 04/23/18 Albuterol 2.5/Ipratropium 0.5 [Duoneb -] 1 amp NEB RQID 30 Days #120 amp Apixaban [Eliquis] 5 mg PO BID 30 Days #60 tablet 04/23/18 Tamsulosin HCl [Flomax -] 0.8 mg PO DAILY@0830 30 Days #60 cap.er.24h 04/23/18 Atenolol [Tenormin -] 50 mg PO DAILY 30 Days #30 tablet 08/29/18 Clopidogrel Bisulfate [Plavix -] 75 mg PO DAILY tablet 08/29/18 Guaifenesin [Mucinex -] 600 mg PO BID 30 Days #60 tablet.er 08/29/18 Pantoprazole Sodium [Protonix -] 40 mg PO DAILY tablet.ec 08/29/18 Polyethylene Glycol 3350 [Miralax 119 gm Btl -] 17 gm PO DAILY bottle 08/29/18 predniSONE [Deltasone -] 20 mg PO DAILY 30 Days #30 tablet 08/29/18 Anemia: No Cardiac Disorders: Yes (A-fib) CVA: No COPD: Yes CHF: No Dementia: No Diabetes: No GI Disorders: No Disorders: Yes (BPH) HTN: Yes Hypercholesterolemia: No Liver Disease: No Seizures: No Thyroid Disease: No - Surgical History Abdominal Surgery: Yes (hernia) Appendectomy: Yes GI Surgery: No Lung Surgery: No Orthopedic Surgery: Yes (rt hip replacement) - Immunization History Immunization Up to Date: No - Suicide/Smoking/Psychosocial Hx Smoking History: Never smoked Have you smoked in the past 12 months: No If you are a former smoker, when did you quit?: 1979 Information on smoking cessation initiated: No Hx Alcohol Use: No Drug/Substance Use Hx: No Substance Use Type: None Hx Substance Use Treatment: No Review of Systems - Review of Systems Able to Perform ROS?: Yes Comments:: 09/21/18 12:40 GENERAL/CONSTITUTIONAL: No fever or chills. No weakness. HEAD, EYES, EARS, NOSE AND THROAT: No change in vision. No sore throat. CARDIOVASCULAR: No chest pain or shortness of breath RESPIRATORY: +cough, no wheezing, +hemoptysis. GASTROINTESTINAL: No nausea, vomiting, diarrhea or constipation. GENITOURINARY: No dysuria, frequency, or change in urination. MUSCULOSKELETAL: No joint or muscle swelling or pain. No neck or back pain. SKIN: No rash NEUROLOGIC: No headache, vertigo, loss of consciousness, or change in strength/ sensation. HEMATOLOGIC/LYMPHATIC: No anemia, easy bleeding, or history of blood clots. ALLERGIC/IMMUNOLOGIC: No hives or skin allergy. *Physical Exam - Vital Signs Last Vital Signs Temp Pulse Resp BP Pulse Ox 99.5 F 79 16 120/84 96 09/21/18 10:14 09/21/18 10:14 09/21/18 10:14 09/21/18 10:14 09/21/18 10:14 - Physical Exam Comments: 09/21/18 12:40 GENERAL: Awake, alert, and fully oriented, in no acute distress HEAD: No signs of trauma, normocephalic, atraumatic EYES: PERRLA, EOMI, sclera anicteric, conjunctiva clear ENT: Auricles normal inspection, hearing grossly normal, nares patent, oropharynx clear without exudates. Moist mucosa NECK: Normal ROM, supple, no lymphadenopathy, JVD, or masses LUNGS: No distress, speaks full sentences, clear to auscultation bilaterally HEART: Regular rate and rhythm, normal S1 and S2, no murmurs, rubs or gallops, peripheral pulses normal and equal bilaterally. ABDOMEN: Soft, nontender, normoactive bowel sounds. No guarding, no rebound. No masses EXTREMITIES: Normal inspection, Normal range of motion, no edema. No clubbing or cyanosis. NEUROLOGICAL: Cranial nerves II through XII grossly intact. Normal speech, no focal sensorimotor deficits SKIN: Warm, Dry, normal turgor, no rashes or lesions noted. Moderate Sedation - Procedure Monitoring Vital Signs: Procedure Monitoring Vital Signs Temperature 99.5 F 09/21/18 10:14 Pulse Rate 79 09/21/18 10:14 Respiratory Rate 16 09/21/18 10:14 Blood Pressure 120/84 09/21/18 10:14 O2 Sat by Pulse Oximetry (%) 96 09/21/18 10:14 ED Treatment Course - LABORATORY CBC & Chemistry Diagram: 09/21/18 12:00 09/21/18 12:00 - ADDITIONAL ORDERS Additional order review: Laboratory Results 09/21/18 12:00 PT with INR 13.00 INR 1.10 H - RADIOLOGY Radiology Studies Ordered: Category Date Time Status CHEST X-RAY PORTABLE* [RAD] Stat Radiology 09/21/18 11:12 Completed - Medications Given in the ED: ED Medications Discontinued Medications Generic Name Dose Route Start Last Admin Trade Name Freq PRN Reason Stop Dose Admin Albuterol/Ipratropium 1 amp 09/21/18 11:13 09/21/18 12:03 Duoneb - NEB 09/21/18 11:14 1 amp ONCE ONE Administration Medical Decision Making - Medical Decision Making 09/21/18 12:41 Patient is 73M with history of COPD, afib on eliquis here today with small amount of hemoptysis. Vitals normal and stable. DDx includes, but is not limited to: bronchitis, pneumonia, lung cancer. PE considered, do not believe likely given lack of chest pain and tachycardia. 09/21/18 17:43 CBC CMP shows no acute issue. Trop negative. CXR shows no acute process. CTA shows likely metastatic disease in liver. Results discussed with patient and Dr Michelle. Patient states that he does not wish to be admitted and wishes to be worked up as an outpatient. Dr Michelle aware, will contact patient in the morning. Risks and benefits of going home discussed with patient. Patient hypoxic to 83% on room air, has o2 at home but no portable oxygen available. Will require ambulance ride home. *DC/Admit/Observation/Transfer Diagnosis at time of Disposition: Metastatic cancer - Discharge Dispostion Disposition: HOME Condition at time of disposition: Poor - Referrals Referrals: Georgina Michelle MD [Primary Care Provider] - - Patient Instructions Additional Instructions: Dr Michelle will call you tomorrow to set up further follow up. You are welcome to return to the ED at any time for admission. Please return immediately if you have any new, worsening or concerning symptoms , especially fever, shortness of breath, and chest pain. - Post Discharge Activity
[2018-09-21 14:45] LABS: ANISOCYTOSIS 0; HELMET CELLS 0; HOWELL-JOLLY BODIES 0; MACROCYTOSIS 0; OVALOCYTE 0; PLATELET ESTIMATE NORMAL; ROULEAU 0; SICKELED CELLS 0; TARGET CELLS 0; TEAR DROP CELLS 0; TOXIC GRANULATION 0
[2018-09-21] MEDS ORDERED: methylPREDNISolone NA SUCC 125 MG/2 ML VIAL IVPB ONE (14:52)
[2018-09-21] MEDS ORDERED: methylPREDNISolone NA SUCC 125 MG/2 ML VIAL ONE (15:23)
--- NOTE | 2018-09-21 19:00 | PDOC ---
Attending Attestation - Resident Resident Name: Fuentes Villalobos - ED Attending Attestation I have performed the following: I have examined & evaluated the patient, The case was reviewed & discussed with the resident, I agree w/resident's findings & plan, Exceptions are as noted - HPI HPI: 09/21/18 18:56 73 yo male h/o afib , copd, on eloquis here for co hemoptysis. takes eloquis, and plavix for pvd. today had cough with bright red blood. no n/v no d/ no f/c wheres home oxygen . using nebs. follows with dr traylor. no cp no other new leg swelling. - Physicial Exam PE: 09/21/18 18:57 awake alert wheezes at bases, poor air flow prolonged expiration. heart rrr nomrg abd soft nt nd. ext wwp no edema. no calf tenderness. - Medical Decision Making 09/21/18 18:58 differential pneumonia, pe copd , coagulapahty, mass ca. plan cta chest cxr was unremarkable. ekg labs cbc . ct a shows metastatic lesions to liver. per dr traylor. pt with h/o prior mass seen on lung ct. pt offered admission. declined. labs unrermarkable. given nebs will dc on steroids for difficulty breathing. and copd exacerbation. kymberly will call pt tomorrow. Heart Score/ECG Review #1 General ECG Interpretation: Sinus Rhythm, Normal Rate (79), Normal Intervals, No acute ischemic changes
[2018-09-21 19:22] VITALS: BP 114/70; PULSE 70
--- NOTE | 2018-09-21 20:25 | EKG ---
Test Reason : Blood Pressure : / mmHG Vent. Rate : 079 BPM Atrial Rate : 079 BPM P-R Int : 158 ms QRS Dur : 064 ms QT Int : 356 ms P-R-T Axes : 088 073 074 degrees QTc Int : 408 ms NORMAL SINUS RHYTHM SEPTAL INFARCT (CITED ON OR BEFORE 15-APR-2018) ABNORMAL ECG WHEN COMPARED WITH ECG OF 23-AUG-2018 12:20, PREMATURE VENTRICULAR COMPLEXES ARE NO LONGER PRESENT T WAVE INVERSION NO LONGER EVIDENT IN ANTERIOR LEADS Confirmed by MARIA ELENA PEACOCK MD ([id number]) on 09/21/2018 8:24:38 PM Referred By: Confirmed By:MARIA ELENA PEACOCK MD
== END 2018-09-21 20:47 | disposition home or self-care (01) ==
LOC: JER 10:14
PROC: 3E0F7GC Introduction of Other Therapeutic Substance into Respiratory Tract, Via Natural or Artificial Opening (ICD-10-PCS; principal; 2018-09-21)
PROC: 3E0F7GC Introduction of Other Therapeutic Substance into Respiratory Tract, Via Natural or Artificial Opening (ICD-10-PCS; 2018-09-21)
PROC: 3E0333Z Introduction of Anti-inflammatory into Peripheral Vein, Percutaneous Approach (ICD-10-PCS; 2018-09-21)
DX: C22.9 Malignant neoplasm of liver, not specified as primary or secondary (principal); J44.9 Chronic obstructive pulmonary disease, unspecified; I10 Essential (primary) hypertension; I48.91 Unspecified atrial fibrillation; Z79.01 Long term (current) use of anticoagulants; N40.0 Benign prostatic hyperplasia without lower urinary tract symptoms
CPT/HCPCS: 36415; 71045-TC-FY; 71275-TC; 80053; 82550; 83735; 84484; 85025; 85610; 93005; 93010; 94640; 96374; 99283-25

== ENCOUNTER 2018-12-22 11:17 | Inpatient (IN) | payer OTHER, MEDICARE ==
[2018-12-22 11:48] LABS: BASO % 0.7 % (0-2.0); EOS % 1.4 % (0-4.5); HEMATOCRIT 32.7 % (35.4-49); HEMOGLOBIN 9.8 GM/dL (11.7-16.9); MCH 23.1 pg (25.7-33.7); MCHC 30.1 g/dl (32.0-35.9); MEAN CELL VOLUME 76.8 fl (80-96); MEAN PLT VOLUME 7.6 fl (7.5-11.1); NEUT % 84.9 % (42.8-82.8); PLATELET COUNT 435 K/MM3 (134-434); RBC 4.25 M/mm3 (4.00-5.60); RDW 15.7 % (11.9-15.9); WHITE BLOOD COUNT 11.8 K/mm3 (4.0-10.0)
--- NOTE | 2018-12-22 11:53 | PDOC ---
History of Present Illness - General Chief Complaint: Shortness of Breath Stated Complaint: SOB Time Seen by Provider: 12/22/18 11:29 History Source: Patient Past History - Past Medical History Allergies/Adverse Reactions: Allergies Allergy/AdvReac Type Severity Reaction Status Date / Time No Known Allergies Allergy Verified 12/22/18 11:30 Home Medications: Ambulatory Orders Alprazolam [Xanax] 1 mg PO QID 03/06/18 Atenolol [Tenormin -] 50 mg PO DAILY 03/06/18 Folic Acid 1 mg PO DAILY 03/06/18 Albuterol 2.5/Ipratropium 0.5 [Duoneb -] 1 vial NEB QID PRN 03/09/18 Mineral Oil/Pet Hy-Phl [Aquaphor -] 1 applic TP BID jar 03/11/18 Budesonide/Formeterol Fumarate [SYMBICORT 80/4.5mcg -] 2 puff IH BID inhaler Diltiazem Cd [Cardizem Cd -] 120 mg PO DAILY #30 cap.cd.24h 03/19/18 Docusate Sodium [Colace -] 300 mg PO HS capsule 03/19/18 Albuterol 0.083% Nebulizer Verna [Ventolin 0.083% Nebulizer Soln -] 1 amp NEB Q8H PRN amp 04/23/18 Albuterol 2.5/Ipratropium 0.5 [Duoneb -] 1 amp NEB RQID 30 Days #120 amp Apixaban [Eliquis] 5 mg PO BID 30 Days #60 tablet 04/23/18 Tamsulosin HCl [Flomax -] 0.8 mg PO DAILY@0830 30 Days #60 cap.er.24h 04/23/18 Atenolol [Tenormin -] 50 mg PO DAILY 30 Days #30 tablet 08/29/18 Clopidogrel Bisulfate [Plavix -] 75 mg PO DAILY tablet 08/29/18 Guaifenesin [Mucinex -] 600 mg PO BID 30 Days #60 tablet.er 08/29/18 Pantoprazole Sodium [Protonix -] 40 mg PO DAILY tablet.ec 08/29/18 Polyethylene Glycol 3350 [Miralax 119 gm Btl -] 17 gm PO DAILY bottle 08/29/18 predniSONE [Deltasone -] 20 mg PO DAILY 30 Days #30 tablet 08/29/18 Anemia: No Cancer: Yes Cardiac Disorders: Yes (A-fib) CVA: No COPD: Yes CHF: No Dementia: No Diabetes: No GI Disorders: No Disorders: Yes (BPH) HTN: Yes Hypercholesterolemia: No Liver Disease: No Seizures: No Thyroid Disease: No - Surgical History Abdominal Surgery: Yes (hernia) Appendectomy: Yes GI Surgery: No Lung Surgery: No Orthopedic Surgery: Yes (rt hip replacement) - Immunization History Immunization Up to Date: No - Suicide/Smoking/Psychosocial Hx Smoking History: Unknown if ever smoked Have you smoked in the past 12 months: No If you are a former smoker, when did you quit?: 1979 Information on smoking cessation initiated: No Hx Alcohol Use: No Drug/Substance Use Hx: No Substance Use Type: None Hx Substance Use Treatment: No *Physical Exam - Vital Signs Last Vital Signs Temp Pulse Resp BP Pulse Ox 73 32 H 173/82 H 100 12/22/18 11:17 12/22/18 11:17 12/22/18 11:17 12/22/18 11:17 ED Treatment Course - LABORATORY CBC & Chemistry Diagram: 12/22/18 11:35 12/22/18 11:35 - ADDITIONAL ORDERS Additional order review: 12/22/18 11:35 RBC 4.25 MCV 76.8 L MCHC 30.1 L RDW 15.7 D MPV 7.6 Neutrophils % 84.9 H Lymphocytes % 5.0 L D Monocytes % 8.0 D Eosinophils % 1.4 Basophils % 0.7 *DC/Admit/Observation/Transfer - Referrals Referrals: Georgina Michelle MD [Primary Care Provider] - - Patient Instructions - Post Discharge Activity
[2018-12-22 12:11] LABS: INR 1.91 (0.83-1.09); PROTHROMBIN TIME (PATIENT) 22.7 SEC (9.7-13.0)
[2018-12-22 12:13] LABS: ACTIVATED PTT 35.9 SECONDS (25.2-36.5)
[2018-12-22 12:15] LABS: ALBUMIN 2.1 g/dl (3.4-5.0); ALK PHOS 75 U/L (45-117); ANION GAP 6 MMOL/L (8-16); BILIRUBIN,TOTAL 0.3 mg/dL (0.2-1); BLOOD UREA NITROGEN 8 mg/dL (7-18); CALCIUM 8.3 mg/dL (8.5-10.1); CHLORIDE 98 mmol/L (98-107); CO2 35 mmol/L (21-32); CREATININE 0.5 mg/dL (0.55-1.3); GLUCOSE,RANDOM 117 mg/dL (74-106); MAGNESIUM 2.1 mg/dL (1.8-2.4); POTASSIUM 4.3 mmol/L (3.5-5.1); SGOT/AST 13 U/L (15-37); SGPT/ALT 8 U/L (13-61); SODIUM 138 mmol/L (136-145)
[2018-12-22 12:41] LABS: ARTERIAL BLD GAS O2 SATURATION 97.1 % (95-98); ARTERIAL BLOOD GAS BASE EXCESS 8.1 meq/l (-2-2); ARTERIAL BLOOD GAS PCO2 69.9 mmHg (35-45); ARTERIAL BLOOD GAS PO2 101 mmHg (80-105); ARTERIAL BLOOD GAS pH 7.32 (7.35-7.45); CARBOXYHEMOGLOBIN 1.2 % (0-2)
[2018-12-22 12:43] LABS: ALLENS TEST POSITIVE
--- NOTE | 2018-12-22 12:46 | PDOC ---
Attending Attestation - Resident Resident Name: Negrita Andujar - ED Attending Attestation I have performed the following: I have examined & evaluated the patient, The case was reviewed & discussed with the resident, I agree w/resident's findings & plan - HPI HPI: 12/22/18 12:46 73 y.o. M w/ PMHx. of COPD (not on home O2), A. Fib ( on Eliquis), HTN and BPH presenting to the ED by EMS with respiratory distress and hypoxia. recent eval in the ED with progressive metastatic disease did not want to be admitted at that time, for his hypoxia 12/22/18 13:37 - Physicial Exam PE: 12/22/18 13:39 Agree with the resident's HPI and PE as documented in the electronic medical record. +respiratory distress, on Bipap with improvement, EOMI, PERRL pale conjunctiva, anicteric; neck supple. no JVD. lungs with b/l faint crackles, moderate respiratory distress irregularly irregular, abdomen soft nontender. Back nontender. HAIR x4, no focal neuro deficits. bilateral nonpitting peripheral edema. pallor noted (chronic) - Critical Care Time Total Critical Care Time: 40 (acute respiratory failure) Critical Care Statement: The care of this patient involved high complexity decision making to prevent further life threatening deterioration of the patient 's condition and/or to evaluate & treat vital organ system(s) failure or risk of failure. - Medical Decision Making 12/22/18 13:38 hpi as documented VS reviewed, +tachypneic, +hypoxic to 82% on O2. hypertensive as well. placed on Bipap for WOB. DDx SOB: ACS, PE, PTX, CHF, COPD exac, pulmonary edema, pleurisy, pneumonia, viral syndrome. effusion. anemia, electrolyte/metabolic derangements. CT chest from 09/21/18 with no evidence of pulmonary embolism, however there was advanced emphysematous changes, irregular opacities in the right lung field that could be infiltrate versus atelectasis versus, multiple hepatic hypodensities lesions consistent with neoplastic disease. Laboratory results reviewed, baseline anemia without acute changes, coags mildly elevated consistent with his anticoagulation use. ABG reveals mild CO2 retention and acute on chronic respiratory acidosis, currently remains on BiPAP for support. Electrolytes are normal, troponin negative, BNP in indeterminate range but clinically does not appear as CHF exacerbation. Likely COPD and underlying malignancy. ED course: - duonebs, steroids, mg, bipap. feels much improved on bipap. - ABG with acute on chronic compensatory respiratory acidosis - blowing off Co2 - attempt weaning off O2 - IV abx, ceftriaxone and azithromycin for PNA coverage. CT imaging her chest to evaluate for pulmonary embolism as etiology. prior CT chest as above - neoplastic vs atelectasis vs infiltrative pattern malignancy and moderate risk for PE with respiratory sx, hypoxia- CT Angio chest to eval for PE or other pulmonary pathology. CT head showed negative for PE however there is interval development of bibasilar infiltrative pattern compared to prior CT, opacities are noted which could be atelectasis versus scarring versus COPD/emphysematous changes. Liver lesions as previously seen with possible underlying neoplastic etiology admit to Dr Dominguez for medical management respiratory failure, pna, copd exacerbation. pt and family made aware of impression and plan, confirmed code status which is DNI, but not DNR. 12/22/18 17:08 Heart Score/ECG Review #1 ECG reviewed & interpreted by me at: 11:50 General ECG Interpretation: Sinus Rhythm, Normal Rate, Normal Intervals 12/22/18 13:41 EKG normal sinus rhythm, no interval abnormalities, narrow QRS, ST and T wave segments and morphology normal. Nonspecific T wave abnormalities
[2018-12-22] MEDS ORDERED: methylPREDNISolone NA SUCC 125 MG/2 ML VIAL IVPUSH ONE (12:48)
[2018-12-22] MEDS ORDERED: MAGNESIUM SULF 50% (8.12 MEQ/2 ML-1 GM VIAL) IVPB ONE (12:48)
[2018-12-22] MEDS ORDERED: ALBUTEROL SO4 2.5/IPRATROPIUM 0.5 INH SOL 3 ML VIAL.NEB. NEB ONE ×2 (12:48→13:01)
[2018-12-22] MEDS ORDERED: CEFTRIAXONE 1,000 MG in DEXTROSE 5%-WATER - 50 ML IVPB ONE (12:49)
[2018-12-22] MEDS ORDERED: AZITHROMYCIN IVPB 500 MG in DEXTROSE 5%-WATER - 250 ML IVPB ONE (12:49)
--- NOTE | 2018-12-22 12:52 | PDOC ---
History of Present Illness <Laney Ruffin Nicknegrito - Last Filed: 12/22/18 17:24> - History of Present Illness Initial Comments: 73yo M with PMH of COPD on home oxygen, AFib on eliquis, HTN, CHF, suspicion for liver ?CA as seen on CT in Aug 2018 presenting with shortness of breath. is at the bedside providing collateral history. Patient has been increasingly short of breath and weak for the past week such that patient was no longer able to walk a couple steps. His , noting him to be symptomatic, increased his home oxygen from 3L to 4L about a week ago. He has not been on steroids or antibiotics recently. Patient has been following his home breathing treatment regimen. Per chart review, patient had a CTA in Aug 2018 and was noted to have masses on his liver consistent with neoplasm. Patient has not seen an oncologist. He was not amenable to admission in Aug, but is today. Endorses chills, but no fevers or chest pain. PCP: Dr. Ovalles <Negrita Andujar - Last Filed: 12/22/18 20:34> - General Chief Complaint: Shortness of Breath Stated Complaint: SOB Time Seen by Provider: 12/22/18 11:29 Past History <LalyLaney Lucy - Last Filed: 12/22/18 17:24> - Past Medical History Anemia: No Cancer: Yes Cardiac Disorders: Yes (A-fib) CVA: No COPD: Yes CHF: No Dementia: No Diabetes: No GI Disorders: No Disorders: Yes (BPH) HTN: Yes Hypercholesterolemia: No Liver Disease: No Seizures: No Thyroid Disease: No - Surgical History Abdominal Surgery: Yes (hernia) Appendectomy: Yes GI Surgery: No Lung Surgery: No Orthopedic Surgery: Yes (rt hip replacement) - Immunization History Immunization Up to Date: No - Suicide/Smoking/Psychosocial Hx Smoking History: Unknown if ever smoked Have you smoked in the past 12 months: No If you are a former smoker, when did you quit?: 1979 Information on smoking cessation initiated: No Hx Alcohol Use: No Drug/Substance Use Hx: No Substance Use Type: None Hx Substance Use Treatment: No <Negrita Andujar - Last Filed: 12/22/18 20:34> - Past Medical History Allergies/Adverse Reactions: Allergies Allergy/AdvReac Type Severity Reaction Status Date / Time No Known Allergies Allergy Verified 12/22/18 11:30 Home Medications: Ambulatory Orders Alprazolam [Xanax] 1 mg PO QID 03/06/18 Atenolol [Tenormin -] 50 mg PO DAILY 03/06/18 Folic Acid 1 mg PO DAILY 03/06/18 Albuterol 2.5/Ipratropium 0.5 [Duoneb -] 1 vial NEB QID PRN 03/09/18 Diltiazem Cd [Cardizem Cd -] 120 mg PO DAILY #30 cap.cd.24h 03/19/18 Apixaban [Eliquis] 5 mg PO BID 30 Days #60 tablet 04/23/18 Tamsulosin HCl [Flomax -] 0.8 mg PO DAILY@30 30 Days #60 cap.er.24h 04/23/18 Clopidogrel Bisulfate [Plavix -] 75 mg PO DAILY tablet 08/29/18 Review of Systems - Review of Systems Comments:: Constitutional: no fever, +chills HEENT: no throat pain, no dysphagia Cardiovascular: no chest pain, no palpitations Respiratory: +cough, +shortness of breath Gastrointestinal: no abdominal pain, no nausea Genitourinary: no dysuria, no frequency Musculoskeletal: no myalgia, no arthralgia Skin: no rash, no itching Neurologic: no headache, +weakness <Negrita Andujar - Last Filed: 12/22/18 20:34> *Physical Exam - Vital Signs Last Vital Signs Temp Pulse Resp BP Pulse Ox 98.1 F 58 L 22 H 107/47 L 98 12/22/18 15:23 12/22/18 16:35 12/22/18 16:35 12/22/18 16:35 12/22/18 16:35 <Laney Ruffin - Last Filed: 12/22/18 17:24> - Vital Signs Last Vital Signs Temp Pulse Resp BP Pulse Ox 73 32 H 173/82 H 82 L 12/22/18 11:17 12/22/18 11:17 12/22/18 11:17 12/22/18 12:03 - Physical Exam Comments: General: Awake, alert, and fully oriented, in no acute distress, cachectic Head: No signs of trauma Eyes: EOMI, sclera anicteric ENT: Dry mucus membranes Neck: Normal ROM, supple Lungs: on BiPAP, crackles present bilaterally Cardio: Regular rhythm, S1 and S2 present Abdomen: Soft, nontender Extremities: Normal range of motion, Distal pulses present, 2+ pitting edema BLE SKIN: Warm, Dry, normal turgor Neurologic: Cranial nerves II through XII grossly intact. Normal speech <Negrita Andujar - Last Filed: 12/22/18 20:34> ED Treatment Course - LABORATORY CBC & Chemistry Diagram: 12/22/18 11:35 12/22/18 11:35 - ADDITIONAL ORDERS Additional order review: Laboratory Results 12/22/18 12/22/18 12/22/18 12:09 11:35 11:35 PT with INR INR PTT (Actin FS) Anticoagulation Therapy No Result Required. Puncture Site Right radial ABG pH 7.32 L ABG pCO2 at Pt Temp 69.9 H ABG pO2 at Pt Temp 101 ABG HCO3 35.3 H ABG O2 Sat (Measured) 97.1 ABG O2 Content 13.0 L ABG Base Excess 8.1 H Tiago Test Positive Carboxyhemoglobin 1.2 Methemoglobin 0.0 O2 Delivery Device Bipap Oxygen Flow Rate 40 Vent Mode No Result Required. Vent Rate 14 Mechanical Rate No Result Required. Pressure Support Vent 12/5 Sodium 138 Potassium 4.3 Chloride 98 Carbon Dioxide 35 H Anion Gap 6 L BUN 8 Creatinine 0.5 L Est GFR (CKD-EPI)AfAm 122.86 Est GFR (CKD-EPI)NonAf 106.01 Random Glucose 117 H Calcium 8.3 L Magnesium 2.1 Total Bilirubin 0.3 AST 13 L ALT 8 L Alkaline Phosphatase 75 Creatine Kinase 59 Troponin I < 0.02 B-Natriuretic Peptide 721.2 H Total Protein 7.0 Albumin 2.1 L 12/22/18 11:35 PT with INR 22.70 H INR 1.91 H PTT (Actin FS) 35.9 Anticoagulation Therapy Puncture Site ABG pH ABG pCO2 at Pt Temp ABG pO2 at Pt Temp ABG HCO3 ABG O2 Sat (Measured) ABG O2 Content ABG Base Excess Tiago Test Carboxyhemoglobin Methemoglobin O2 Delivery Device Oxygen Flow Rate Vent Mode Vent Rate Mechanical Rate Pressure Support Vent Sodium Potassium Chloride Carbon Dioxide Anion Gap BUN Creatinine Est GFR (CKD-EPI)AfAm Est GFR (CKD-EPI)NonAf Random Glucose Calcium Magnesium Total Bilirubin AST ALT Alkaline Phosphatase Creatine Kinase Troponin I B-Natriuretic Peptide Total Protein Albumin 12/22/18 11:35 RBC 4.25 MCV 76.8 L MCHC 30.1 L RDW 15.7 D MPV 7.6 Neutrophils % 84.9 H Lymphocytes % 5.0 L D Monocytes % 8.0 D Eosinophils % 1.4 Basophils % 0.7 - RADIOLOGY Radiology Studies Ordered: Category Date Time Status CHEST X-RAY PORTABLE* [RAD] Stat Radiology 12/22/18 11:33 Completed - Medications Given in the ED: ED Medications Discontinued Medications Generic Name Dose Route Start Last Admin Trade Name Freq PRN Reason Stop Dose Admin Albuterol/Ipratropium 3 amp 12/22/18 12:48 12/22/18 13:18 Duoneb - NEB 12/22/18 12:49 3 amp ONCE ONE Administration Azithromycin 500 mg/ Dextrose 250 mls @ 250 mls/hr 12/22/18 12:49 12/22/18 13 :19 IVPB 12/22/18 13:48 250 mls/hr ONCE ONE Administration Ceftriaxone Sodium 1,000 mg/ 50 mls @ 100 mls/hr 12/22/18 12:49 12/22/18 13: 18 Dextrose IVPB 12/22/18 13:18 100 mls/hr ONCE ONE Administration Magnesium Sulfate 2 gm 12/22/18 12:48 12/22/18 13:18 Magnesium Sulfate IVPB 12/22/18 12:49 2 gm ONCE ONE Administration Methylprednisolone Sodium Succinate 125 mg 12/22/18 12:48 12/22/18 13:18 Solu-Medrol - IVPUSH 12/22/18 12:49 125 mg ONCE ONE Administration <Laney Ruffin - Last Filed: 12/22/18 17:24> - LABORATORY CBC & Chemistry Diagram: 12/22/18 11:35 12/22/18 11:35 - ADDITIONAL ORDERS Additional order review: Laboratory Results 12/22/18 12/22/18 12/22/18 12:09 11:35 11:35 PT with INR INR PTT (Actin FS) Anticoagulation Therapy No Result Required. Puncture Site Right radial ABG pH 7.32 L ABG pCO2 at Pt Temp 69.9 H ABG pO2 at Pt Temp 101 ABG HCO3 35.3 H ABG O2 Sat (Measured) 97.1 ABG O2 Content 13.0 L ABG Base Excess 8.1 H Tiago Test Positive Carboxyhemoglobin 1.2 Methemoglobin 0.0 O2 Delivery Device Bipap Oxygen Flow Rate 40 Vent Mode No Result Required. Vent Rate 14 Mechanical Rate No Result Required. Pressure Support Vent 12/5 Sodium 138 Potassium 4.3 Chloride 98 Carbon Dioxide 35 H Anion Gap 6 L BUN 8 Creatinine 0.5 L Est GFR (CKD-EPI)AfAm 122.86 Est GFR (CKD-EPI)NonAf 106.01 Random Glucose 117 H Calcium 8.3 L Magnesium 2.1 Total Bilirubin 0.3 AST 13 L ALT 8 L Alkaline Phosphatase 75 Creatine Kinase 59 Troponin I < 0.02 B-Natriuretic Peptide 721.2 H Total Protein 7.0 Albumin 2.1 L 12/22/18 11:35 PT with INR 22.70 H INR 1.91 H PTT (Actin FS) 35.9 Anticoagulation Therapy Puncture Site ABG pH ABG pCO2 at Pt Temp ABG pO2 at Pt Temp ABG HCO3 ABG O2 Sat (Measured) ABG O2 Content ABG Base Excess Tiago Test Carboxyhemoglobin Methemoglobin O2 Delivery Device Oxygen Flow Rate Vent Mode Vent Rate Mechanical Rate Pressure Support Vent Sodium Potassium Chloride Carbon Dioxide Anion Gap BUN Creatinine Est GFR (CKD-EPI)AfAm Est GFR (CKD-EPI)NonAf Random Glucose Calcium Magnesium Total Bilirubin AST ALT Alkaline Phosphatase Creatine Kinase Troponin I B-Natriuretic Peptide Total Protein Albumin 12/22/18 11:35 RBC 4.25 MCV 76.8 L MCHC 30.1 L RDW 15.7 D MPV 7.6 Neutrophils % 84.9 H Lymphocytes % 5.0 L D Monocytes % 8.0 D Eosinophils % 1.4 Basophils % 0.7 - RADIOLOGY Radiology Studies Ordered: Category Date Time Status CHEST CTA [CT] Stat CT Scan 12/22/18 12:49 Ordered <Negrita Andujar - Last Filed: 12/22/18 20:34> Medical Decision Making - Medical Decision Making 73yo M with PMH of COPD on home oxygen, AFib on eliquis, HTN, CHF, liver ?CA presenting with shortness of breath. DDX including but not limted to COPD exacerbation, CHF exacerbation, metastasis , PE, PNA, URI Was satting 82 upon arrival to the ED, placed on BiPAP and now satting 100 Had discussion with the patient regarding his wishes. He does not wish to be intubated or placed on a ventilator. He would want chest compressions in event of a cardiac arrest. Patient's was present during this conversation. EKG: rate 68, QTc 412, NSR CXR: "Left costophrenic angle not included on the x-ray. There is blunting of the right costophrenic angles. COPD. Bullous changes are noted in the right lung. Increasing additional lung markings noted in the left lower lung zone. No pneumothorax is seen. No evidence of large pleural effusion. Unchanged contour of the cardiomediastinal silhouette. Please refer to the CT of the chest September 21 of additional findings. Impression. COPD. No pneumothorax is seen. Chronic postinflammatory, atelectatic changes are noted in left lower lung zone. " As Xray is consistent with COPD, together with patient's hypoxia in the low 80s , high suspicion for COPD exacerbation Treating with solu-medrol, mag, duonebs, ceftriaxone, and azithromycin Also, plan to CTA to r/o PE given patient's hypoxia and suspicion for liver malignancy (seen on CT on 09/21/18) CBC WBC 11.8 K/mm3 (4.0-10.0) H 12/22/18 11:35 RBC 4.25 M/mm3 (4.00-5.60) 12/22/18 11:35 Hgb 9.8 GM/dL (11.7-16.9) L 12/22/18 11:35 Hct 32.7 % (35.4-49) L 12/22/18 11:35 MCV 76.8 fl (80-96) L 12/22/18 11:35 MCH 23.1 pg (25.7-33.7) L D 12/22/18 11:35 MCHC 30.1 g/dl (32.0-35.9) L 12/22/18 11:35 RDW 15.7 % (11.9-15.9) D 12/22/18 11:35 Plt Count 435 K/MM3 (134-434) H D 12/22/18 11:35 MPV 7.6 fl (7.5-11.1) 12/22/18 11:35 Absolute Neuts (auto) 10.0 K/mm3 (1.5-8.0) H 12/22/18 11:35 Neutrophils % 84.9 % (42.8-82.8) H 12/22/18 11:35 Lymphocytes % 5.0 % (8-40) L D 12/22/18 11:35 Monocytes % 8.0 % (3.8-10.2) D 12/22/18 11:35 Eosinophils % 1.4 % (0-4.5) 12/22/18 11:35 Basophils % 0.7 % (0-2.0) 12/22/18 11:35 Nucleated RBC % 0 % (0-0) 12/22/18 11:35 Slight leukocytosis, WBC=11.8 Anemia, hgb=9.8, at patient's baseline CMP Sodium 138 mmol/L (136-145) 12/22/18 11:35 Potassium 4.3 mmol/L (3.5-5.1) 12/22/18 11:35 Chloride 98 mmol/L (98-107) 12/22/18 11:35 Carbon Dioxide 35 mmol/L (21-32) H 12/22/18 11:35 Anion Gap 6 MMOL/L (8-16) L 12/22/18 11:35 BUN 8 mg/dL (7-18) 12/22/18 11:35 Creatinine 0.5 mg/dL (0.55-1.3) L 12/22/18 11:35 Est GFR (CKD-EPI)AfAm 122.86 12/22/18 11:35 Est GFR (CKD-EPI)NonAf 106.01 12/22/18 11:35 Random Glucose 117 mg/dL (74-106) H 12/22/18 11:35 Calcium 8.3 mg/dL (8.5-10.1) L 12/22/18 11:35 Magnesium 2.1 mg/dL (1.8-2.4) 12/22/18 11:35 Total Bilirubin 0.3 mg/dL (0.2-1) 12/22/18 11:35 AST 13 U/L (15-37) L 12/22/18 11:35 ALT 8 U/L (13-61) L 12/22/18 11:35 Alkaline Phosphatase 75 U/L (45-117) 12/22/18 11:35 Creatine Kinase 59 U/L (26-308) 12/22/18 11:35 Troponin I < 0.02 ng/ml (0.00-0.05) 12/22/18 11:35 B-Natriuretic Peptide 721.2 pg/ml (5-450) H 12/22/18 11:35 Total Protein 7.0 g/dl (6.4-8.2) 12/22/18 11:35 Albumin 2.1 g/dl (3.4-5.0) L 12/22/18 11:35 Electrolytes unremarkable Cr=0.5 Tpn undetectable BNP is lower than patient's baseline ABG pending 12/22/18 12:55 ABG indicates respiratory acidosis; patient is retaining CO2 Patient awaiting CT as it the machine is currently unavailable at this time; will send when ready 12/22/18 14:17 CTA: "Multiplanar imaging was performed on the intravenous administration of nonionic contrast. No discrete pulmonary embolus is seen. In comparison to a prior CT study of 09/21/2018 interval development of bilateral posterior basilar infiltrates is seen. There is resultant obscuration of the bibasilar opacities present on the previous exam which may represent areas of chronic atelectasis or probably less likely neoplastic disease. No pleural effusion is noted. Marked centrilobular emphysema is again noted. There is no definite cardiac enlargement. At least moderate atherosclerotic coronary artery calcifications are noted. No pericardial effusion is seen. There is no aortic aneurysm. The osseous structures demonstrate no gross CT evidence of acute pathology or neoplastic disease. Impression: No CT evidence of pulmonary embolism. Interval development of bibasilar infiltrates is noted in comparison to a prior CT study of 2018. There is resultant obscuration of pre-existing bibasilar opacities which may represent atelectasis, scarring and less likely neoplastic disease. Correlate with 2 month follow-up CT. Advanced centrilobular emphysema. A 3 cm right hepatic lobe lesion is seen which may be on the basis of neoplastic disease. " 12/22/18 16:[address] Michelle who accepted patient for admission. Per her request, placed consult for Dr. Turner 12/22/18 17:07 Patient with drop in BP, now systolic 107. 500cc fluids ordered. Plan to wean patient from biPAP to venti mask 12/22/18 17:41 Patient satting 97 on Venti Mask 12/22/18 20:10 <Negrita Andujar - Last Filed: 12/22/18 20:34> *DC/Admit/Observation/Transfer - Discharge Dispostion Decision to Admit order: Yes Decision to Admit order Date/Time: 12/22/18 17:25 <Laney Ruffin - Last Filed: 12/22/18 17:24> - Discharge Dispostion Decision to Admit order: Yes <Negrita Andujar - Last Filed: 12/22/18 20:34> Diagnosis at time of Disposition: COPD exacerbation, Acute respiratory failure, Pneumonia - Discharge Dispostion Condition at time of disposition: Guarded
[2018-12-22] MEDS ORDERED: AZITHROMYCIN IVPB 500 MG/250 ML BAG IVPB ONE (13:02)
[2018-12-22] MEDS ORDERED: MAGNESIUM SULF 50% (8.12 MEQ/2 ML-1 GM VIAL) ONE (13:02)
[2018-12-22] MEDS ORDERED: CEFTRIAXONE 1 GM/50 ML BAG ONE (13:02)
[2018-12-22] MEDS ORDERED: methylPREDNISolone NA SUCC 125 MG/2 ML VIAL ONE (13:02)
--- NOTE | 2018-12-22 15:40 | EKG ---
Test Reason : Blood Pressure : / mmHG Vent. Rate : 068 BPM Atrial Rate : 068 BPM P-R Int : 152 ms QRS Dur : 070 ms QT Int : 388 ms P-R-T Axes : 075 050 054 degrees QTc Int : 412 ms NORMAL SINUS RHYTHM SEPTAL INFARCT (CITED ON OR BEFORE 15-APR-2018) ABNORMAL ECG WHEN COMPARED WITH ECG OF 21-SEP-2018 10:37, NO SIGNIFICANT CHANGE WAS FOUND Confirmed by Jose Madden MD ([id number]) on 12/22/2018 3:39:59 PM Referred By: Confirmed By:Jose Madden MD
[2018-12-22] MEDS ORDERED: SODIUM CHLORIDE 0.9% 500 ML INFUS.BAG IV ONE (17:24)
[2018-12-22] MEDS ORDERED: ALBUTEROL SO4 2.5/IPRATROPIUM 0.5 INH SOL 3 ML VIAL.NEB. NEB PRN (17:53)
[2018-12-22] MEDS ORDERED: PATIENT'S OWN MEDICATION (NON-FORMULARY) (Alprazolam [Xanax] 1 MG) PO SCH (18:00)
[2018-12-22] MEDS: INSULIN SLIDING SCALE (NOVOLOG) 1 VIAL SQ SCH (20:40)
[2018-12-22] MEDS: APIXABAN 5 MG TABLET PO SCH (20:40)
[2018-12-22] MEDS ORDERED: APIXABAN 5 MG TABLET PO ONE (22:26)
[2018-12-23] MEDS: ALPRAZolam 0.25 MG TABLET PO SCH ×4 (00:55→18:17)
[2018-12-23 04:36] VITALS: BMI 20.2
[2018-12-23] MEDS: INSULIN SLIDING SCALE (NOVOLOG) 1 VIAL SQ SCH ×4 (06:23→21:12)
[2018-12-23 07:31] LABS: HEMATOCRIT 27.6 % (35.4-49); HEMOGLOBIN 8.5 GM/dL (11.7-16.9); MCH 23.5 pg (25.7-33.7); MCHC 30.9 g/dl (32.0-35.9); MEAN CELL VOLUME 76.3 fl (80-96); MEAN PLT VOLUME 7.7 fl (7.5-11.1); PLATELET COUNT 395 K/MM3 (134-434); RBC 3.62 M/mm3 (4.00-5.60); RDW 15.7 % (11.9-15.9); WHITE BLOOD COUNT 4.9 K/mm3 (4.0-10.0)
[2018-12-23 08:25] LABS: ALBUMIN 1.7 g/dl (3.4-5.0); BILIRUBIN,TOTAL 0.3 mg/dL (0.2-1); CALCIUM 8.5 mg/dL (8.5-10.1); CREATININE 0.4 mg/dL (0.55-1.3); POTASSIUM 4.7 mmol/L (3.5-5.1); TOT PROT 5.8 g/dl (6.4-8.2)
[2018-12-23] MEDS: TAMSULOSIN HCL 0.4 MG CAP PO SCH (09:04)
[2018-12-23] MEDS: FOLIC ACID 1 MG TABLET (FP) PO SCH (09:04)
[2018-12-23] MEDS: APIXABAN 5 MG TABLET PO SCH ×2 (09:04→21:43)
[2018-12-23] MEDS: ATENOLOL 50 MG TABLET (FP) PO SCH (09:04)
[2018-12-23] MEDS: CLOPIDOGREL BISULFATE 75 MG TABLET (FP) PO SCH (09:04)
--- NOTE | 2018-12-23 11:06 | HP ---
Admitting History and Physical - Admission History of Present Illness: Initial Comments: 73yo M with PMH of COPD on home oxygen, AFib on eliquis, HTN, CHF, suspicion for liver ?CA as seen on CT in Aug 2018 presenting with shortness of breath. is at the bedside providing collateral history. Patient has been increasingly short of breath and weak for the past week such that patient was no longer able to walk a couple steps. His , noting him to be symptomatic, increased his home oxygen from 3L to 4L about a week ago. He has not been on steroids or antibiotics recently. Patient has been following his home breathing treatment regimen. Per chart review, patient had a CTA in Aug 2018 and was noted to have masses on his liver consistent with neoplasm. Patient has declined work up in the past - aware of liver masses. Patient has not seen an oncologist. He was not amenable to admission in Aug, but is today. Endorses chills, but no fevers or chest pain. 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: Dementia (mild to moderate) Cardiovascular: Yes: AFIB, HTN Pulmonary: Yes: Bronchitis, COPD, O2 Dependent, Pneumonia Infectious Disease: Yes: MRSA (hx) Psych: Yes: Anxiety, Panic Musculoskeletal: Yes: Osteoarthritis Dermatology: Yes: Other (B/L feet scars/ scratches) - Past Surgical History Past Surgical History: Yes: Appendectomy, Hernia Repair, Permanent Pacemaker - Smoking History Smoking history: Former smoker Have you smoked in the past 12 months: No If you are a former smoker, when did you quit?: 1979 - Alcohol/Substance Use Hx Alcohol Use: No - Social History Usual Living Arrangement: Yes: With Spouse History of Recent Travel: No Home Medications - Allergies Allergies/Adverse Reactions: Allergies Allergy/AdvReac Type Severity Reaction Status Date / Time No Known Allergies Allergy Verified 12/22/18 11:30 - Home Medications Home Medications: Ambulatory Orders Alprazolam [Xanax] 1 mg PO QID 03/06/18 Atenolol [Tenormin -] 50 mg PO DAILY 03/06/18 Folic Acid 1 mg PO DAILY 03/06/18 Albuterol 2.5/Ipratropium 0.5 [Duoneb -] 1 vial NEB QID PRN 08/13/18 Diltiazem Cd [Cardizem Cd -] 120 mg PO DAILY #30 cap.cd.24h 03/19/18 Apixaban [Eliquis] 5 mg PO BID 30 Days #60 tablet 04/23/18 Tamsulosin HCl [Flomax -] 0.8 mg PO DAILY@0830 30 Days #60 cap.er.24h 04/23/18 Clopidogrel Bisulfate [Plavix -] 75 mg PO DAILY tablet 08/29/18 Review of Systems - Review of Systems Constitutional: reports: Chills, Loss of Appetite, Weakness. denies: Fever, Night Sweats Eyes: reports: No Symptoms HENT: reports: No Symptoms Neck: reports: No Symptoms Cardiovascular: reports: Shortness of Breath. denies: Chest Pain, Palpitations Respiratory: reports: Cough, Exercise Intolerance, SOB, SOB on Exertion, Wheezing. denies: Hemoptysis Gastrointestinal: reports: No Symptoms Genitourinary: reports: No Symptoms Musculoskeletal: reports: Decreased ROM, Muscle Weakness Integumentary: reports: No Symptoms Neurological: reports: Pre-Existing Deficit, Unsteady Gait, Weakness Endocrine: reports: No Symptoms Hematology/Lymphatic: reports: No Symptoms Psychiatric: reports: No Symptoms Physical Examination Vital Signs: Vital Signs Temperature 97.0 F L 12/23/18 10:04 Pulse Rate 68 12/23/18 10:04 Respiratory Rate 20 12/23/18 10:04 Blood Pressure 123/66 12/23/18 10:04 O2 Sat by Pulse Oximetry (%) 99 12/23/18 01:10 Constitutional: Yes: No Distress, Calm, Pallor, Thin Eyes: Yes: Conjunctiva Clear, EOM Intact HENT: Yes: Atraumatic, Normocephalic Neck: Yes: Supple, Trachea Midline Cardiovascular: Yes: Pulse Irregular Respiratory: Yes: Diminished, On Nasal O2 Gastrointestinal: Yes: Normal Bowel Sounds, Soft ...Rectal Exam: Yes: Deferred Renal/: Yes: WNL Breast(s): Yes: WNL Musculoskeletal: Yes: Muscle Weakness Extremities: No: Calf Tenderness, Cyanosis, Deformity Edema: No Peripheral Pulses WNL: Yes Integumentary: Yes: WNL Neurological: Yes: Pre-Existing Deficit, Unsteady Gait, Weakness Psychiatric: Yes: Alert Labs: CBC, BMP 12/23/18 07:00 12/23/18 07:00 Problem List - Problems (1) COPD exacerbation Code(s): J44.1 - CHRONIC OBSTRUCTIVE PULMONARY DISEASE W (ACUTE) EXACERBATION (2) MRSA (methicillin resistant Staphylococcus aureus) carrier Code(s): Z22.322 - CARRIER OR SUSPECTED CARRIER OF METHICILLIN RESIS STAPH (3) Respiratory failure with hypoxia and hypercapnia Code(s): J96.91 - RESPIRATORY FAILURE, UNSPECIFIED WITH HYPOXIA; J96.92 - RESPIRATORY FAILURE, UNSPECIFIED WITH HYPERCAPNIA (4) Atrial fibrillation Code(s): I48.91 - UNSPECIFIED ATRIAL FIBRILLATION Qualifiers: (5) Coronary artery disease Code(s): I25.10 - ATHSCL HEART DISEASE OF [place] CORONARY ARTERY W/O ANG PCTRS Qualifiers: (6) Emphysema of lung Code(s): J43.9 - EMPHYSEMA, UNSPECIFIED (7) HTN (hypertension) Code(s): I10 - ESSENTIAL (PRIMARY) HYPERTENSION Qualifiers: Hypertension type: essential hypertension Qualified Code(s): I10 - Essential (primary) hypertension (8) Malnutrition Code(s): E46 - UNSPECIFIED PROTEIN-CALORIE MALNUTRITION Assessment/Plan # AE COPD COPD / pHTN / ? PNA nebulizer / Steroids / IV ABX pulmonary consult follow up CXR r/o PNA # A fib rate controlled continue a/c # Anemia blood loss vs chronic diseas stool giuacs / oncology eval # Malignancy -liver masses ?metastatic disease During previous hospitalization / and follow up visits has declined w/u to determine primary site of probable metastatic DZ He has declined w/u to both myself and Dr Cordoba on multiple occasions. Today he is agreeable and is requesting to find out "where the problem is coming from" I have explained more testing would be required and more doctors involved - he agrees #diastolic HF no evidence of fluid overload # malnutrition albumin 2.1 anemia underweight
--- NOTE | 2018-12-23 12:48 | CON.PULM ---
Consult Consult Specialty:: PULMONARY Referred by:: Dr Michelle Reason for Consultation:: pneumonia - History of Present Illness Chief Complaint: shortness of breath History of Present Illness: 73yo male with h/o HTN, atrial fibrillation, CHF, COPD, chronic hypoxic respiratory failure on home O2, liver masses who was admitted with worsening shortness of breath x 1 week. Denies chest pain or palpitations. +nonproductive cough and wheezing. No fevers but with chills. He is a former smoker. CT chest was done showing increase in bibasilar infiltrates. Prior CT chest with right basilar mass vs atelectasis. 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 (mild to moderate) Cardio/Vascular: Yes: AFIB, HTN Pulmonary: Yes: Bronchitis, COPD, O2 Dependent, Pneumonia Infectious Disease: Yes: MRSA (hx) Psych: Yes: Anxiety, Panic Musculoskeletal: Yes: Osteoarthritis Dermatology: Yes: Other (B/L feet scars/ scratches) - Past Surgical History Past Surgical History: Yes: Appendectomy, Hernia Repair, Permanent Pacemaker - Alcohol/Substance Use Hx Alcohol Use: No - Smoking History Smoking history: Former smoker Have you smoked in the past 12 months: No If you are a former smoker, when did you quit?: 1979 - Social History History of Recent Travel: No Home Medications - Allergies Allergies/Adverse Reactions: Allergies Allergy/AdvReac Type Severity Reaction Status Date / Time No Known Allergies Allergy Verified 12/22/18 11:30 - Home Medications Home Medications: Ambulatory Orders Alprazolam [Xanax] 1 mg PO QID 03/06/18 Atenolol [Tenormin -] 50 mg PO DAILY 03/06/18 Folic Acid 1 mg PO DAILY 03/06/18 Albuterol 2.5/Ipratropium 0.5 [Duoneb -] 1 vial NEB QID PRN 03/09/18 Diltiazem Cd [Cardizem Cd -] 120 mg PO DAILY #30 cap.cd.24h 03/19/18 Apixaban [Eliquis] 5 mg PO BID 30 Days #60 tablet 04/23/18 Tamsulosin HCl [Flomax -] 0.8 mg PO DAILY@0830 30 Days #60 cap.er.24h 04/23/18 Clopidogrel Bisulfate [Plavix -] 75 mg PO DAILY tablet 08/29/18 Review of Systems - Review of Systems Constitutional: reports: Chills, Weakness. denies: Fever Eyes: denies: Recent Change in Vision HENT: denies: Nasal Congestion, Throat Pain Neck: denies: Stiffness, Tenderness Cardiovascular: reports: Shortness of Breath. denies: Chest Pain, Palpitations Respiratory: reports: Cough, SOB, Wheezing. denies: Hemoptysis Gastrointestinal: denies: Abdominal Pain, Nausea, Vomiting Genitourinary: denies: Dysuria, Hematuria Neurological: denies: Dizziness, Headache Endocrine: denies: Unexplained Weight Loss Physical Exam Vital Sings: Vital Signs Temperature 97.0 F L 12/23/18 10:04 Pulse Rate 68 12/23/18 10:04 Respiratory Rate 20 12/23/18 10:04 Blood Pressure 123/66 12/23/18 10:04 O2 Sat by Pulse Oximetry (%) 93 L 12/23/18 09:00 Constitutional: Yes: Calm Eyes: Yes: Conjunctiva Clear, EOM Intact HENT: Yes: Atraumatic, Normocephalic Neck: Yes: Supple, Trachea Midline Cardiovascular: Yes: Regular Rate and Rhythm Respiratory: Yes: Rhonchi (scattered) ...Clubbing: No Gastrointestinal: Yes: Normal Bowel Sounds, Soft. No: Tenderness Edema: No Neurological: Yes: Alert, Oriented Labs: CBC, BMP 12/23/18 07:00 12/23/18 07:00 ABG Results ABG pH 7.32 (7.35-7.45) L 12/22/18 12:09 ABG pCO2 at Pt Temp 69.9 mmHg (35-45) H 12/22/18 12:09 ABG pO2 at Pt Temp 101 mmHg (80-105) 12/22/18 12:09 ABG HCO3 35.3 mmol/L (22-27) H 12/22/18 12:09 ABG O2 Sat (Measured) 97.1 % (95-98) 12/22/18 12:09 ABG O2 Content 13.0 % vol (15-22) L 12/22/18 12:09 ABG Base Excess 8.1 meq/l (-2-2) H 12/22/18 12:09 Imaging - Results Chest X-ray: Report Reviewed, Image Reviewed Cat Scan: Report Reviewed, Image Reviewed (emphysematous changes, bibasilar infiltrates) Problem List - Problems (1) Pneumonia Code(s): J18.9 - PNEUMONIA, UNSPECIFIED ORGANISM Qualifiers: (2) COPD exacerbation Code(s): J44.1 - CHRONIC OBSTRUCTIVE PULMONARY DISEASE W (ACUTE) EXACERBATION Assessment/Plan Acute on Chronic Hypoxic Respiratory Failure Pneumonia Acute COPD Exacerbation Atrial Fibrillation LV Diastolic Dysfunction Pulmonary HTN HTN Liver Masses - IV antibiotics - f/u cultures - short course of medrol - inhaled bronchodilators standing and PRN - O2 to keep SpO2 >90% - rate control - continue anticoagulation - outpt f/u of chest imaging Thank you for this consult Khris Jordan MD
[2018-12-23] MEDS ORDERED: ALBUTEROL SO4 0.083% IH SOL 2.5 MG/3 ML VIAL.NEB. NEB PRN (12:51)
[2018-12-23] MEDS ORDERED: AZITHROMYCIN IVPB 500 MG in DEXTROSE 5%-WATER - 250 ML IVPB SCH (13:00)
[2018-12-23] MEDS ORDERED: CEFTRIAXONE 1 GM in DEXTROSE 5%-WATER - 50 ML IVPB SCH (13:00)
[2018-12-23] MEDS ORDERED: AZITHROMYCIN IVPB 500 MG/250 ML BAG IVPB SCH (13:02)
[2018-12-23] MEDS: methylPREDNISolone NA SUCC 40 MG/1 ML VIAL IVPUSH SCH ×2 (13:14→18:17)
--- NOTE | 2018-12-23 14:15 | CONSULT ---
Consultation: REQUESTING PROVIDER: CONSULT REQUEST: We have been asked to medically evaluate this patient for hepatic mass HISTORY OF PRESENT ILLNESS: This is a 73 yo M with PMH of COPD on 3L O2, AF on eliquis, HTN, CHF, recently found to have 3 cm R hepatic lobe mass on CTA Aug 2018 but refused workup, who presented with SOB and admitted with COPD exacerbation. Currently being treated with abx, medrol and nebs. Patient has not seed an oncologist but is now agreeable to onc workup. CTA during this admission again shown the R hepatic lobe mass. Labs consistent with microcytic anemia hgb 8.5, alk phos wnl 58. Patient poor historian due to poor memory. denies weight loss. reports heavy smoking history. denies ever having a colonoscopy. denies family history of CA. Denies melena, hematochezia, hematuria, hematemesis, hemoptysis, abd pain, n/v. reports vague history of prostate problems REVIEW OF SYSTEMS: CONSTITUTIONAL: Absent: fever, chills, weight change HEENT: Absent: rhinorrhea, nasal congestion, throat pain CARDIOVASCULAR: Absent: chest pain, syncope, palpitations, lightheadedness RESPIRATORY: Absent: hemoptysis GASTROINTESTINAL: Absent: abdominal pain, abdominal distension, nausea, vomiting, melena, hematochezia GENITOURINARY: Absent: dysuria, hematuria MUSCULOSKELETAL: Absent: back pain, neck pain SKIN: Absent: rash, itching, pallor HEMATOLOGIC/IMMUNOLOGIC: Absent: easy bleeding, easy bruising ENDOCRINE: Absent: unexplained weight gain, unexplained weight loss NEUROLOGIC: Absent: headache, focal weakness or paresthesias PSYCHIATRIC: Absent: anxiety, depression PHYSICAL EXAMINATION Vital Signs - 24 hr 12/22/18 12/22/18 12/22/18 15:23 16:35 17:05 Temperature 98.1 F Pulse Rate Pulse Rate [ 68 58 L Apical] Pulse Rate [ Right Radial] Respiratory 20 22 H Rate Blood Pressure Blood Pressure 124/58 L 107/47 L [Right Arm] O2 Sat by Pulse 100 98 100 Oximetry (%) 12/22/18 12/22/18 12/22/18 17:48 18:05 21:44 Temperature Pulse Rate 56 L Pulse Rate [ 56 L 56 L Apical] Pulse Rate [ 55 L Right Radial] Respiratory 14 14 18 Rate Blood Pressure Blood Pressure 112/49 L 115/47 L 102/51 L [Right Arm] O2 Sat by Pulse 99 99 99 Oximetry (%) 12/23/18 12/23/18 12/23/18 00:05 01:03 01:10 Temperature 98.8 F Pulse Rate 73 Pulse Rate [ Apical] Pulse Rate [ 54 L Right Radial] Respiratory 16 20 20 Rate Blood Pressure 140/70 Blood Pressure 106/58 L [Right Arm] O2 Sat by Pulse 100 99 Oximetry (%) 12/23/18 12/23/18 09:00 10:04 Temperature 97.0 F L Pulse Rate 68 Pulse Rate [ Apical] Pulse Rate [ Right Radial] Respiratory 20 Rate Blood Pressure 123/66 Blood Pressure [Right Arm] O2 Sat by Pulse 93 L Oximetry (%) GENERAL: Awake, alert, and fully oriented, in no acute distress. HEAD: Normal with no signs of trauma. EYES:extraocular movements intact, sclera anicteric, conjunctiva clear. EARS, NOSE, THROAT: Moist mucous membranes. NECK: supple without lymphadenopathy or masses, no supraclavicular adenopathy. LUNGS: poor air movement b/l HEART: irregularly irregular, normal S1 and S2 ABDOMEN: Soft, nontender, not distended, normoactive bowel sounds Testicular: no masses or lesions, no inguinal adenopathy Laboratory Results - last 24 hr 12/22/18 12/23/18 12/23/18 22:37 05:51 07:00 WBC 4.9 RBC 3.62 L Hgb 8.5 L Hct 27.6 L D MCV 76.3 L MCH 23.5 L MCHC 30.9 L RDW 15.7 Plt Count 395 MPV 7.7 Sodium Potassium Chloride Carbon Dioxide Anion Gap BUN Creatinine Est GFR (CKD-EPI)AfAm Est GFR (CKD-EPI)NonAf POC Glucometer 134 130 Random Glucose Calcium Total Bilirubin AST ALT Alkaline Phosphatase Total Protein Albumin TSH 12/23/18 12/23/18 07:00 11:48 WBC RBC Hgb Hct MCV MCH MCHC RDW Plt Count MPV Sodium 137 Potassium 4.7 Chloride 98 Carbon Dioxide 35 H Anion Gap 4 L BUN 13 Creatinine 0.4 L Est GFR (CKD-EPI)AfAm 134.66 Est GFR (CKD-EPI)NonAf 116.19 POC Glucometer 184 Random Glucose 124 H Calcium 8.5 Total Bilirubin 0.3 AST 7 L ALT 6 L Alkaline Phosphatase 58 Total Protein 5.8 L Albumin 1.7 L TSH 0.23 L D Active Medications Generic Name Dose Route Start Last Admin Trade Name Freq PRN Reason Stop Dose Admin Albuterol Sulfate 1 amp 12/23/18 12:51 Ventolin 0.083% Nebulizer Soln - NEB Q4H PRN SHORT OF BREATH/WHEEZING Albuterol/Ipratropium 1 amp 12/23/18 16:00 Duoneb - NEB RQID GE Alprazolam 1 mg 12/22/18 19:08 12/23/18 12:02 Xanax - PO 1 mg Q6HPO GE Administration Apixaban 5 mg 12/22/18 22:00 12/23/18 09:04 Eliquis - PO 5 mg BID GE Administration Atenolol 50 mg 12/23/18 10:00 12/23/18 09:04 Tenormin - PO 50 mg DAILY GE Administration Clopidogrel Bisulfate 75 mg 12/23/18 10:00 12/23/18 09:04 Plavix - PO 75 mg DAILY GE Administration Diltiazem HCl 120 mg 12/23/18 10:00 12/23/18 09:04 Cardizem Cd - PO 120 mg DAILY GE Administration Folic Acid 1 mg 12/23/18 10:00 12/23/18 09:04 Folic Acid - PO 1 mg DAILY GE Administration Ceftriaxone Sodium 1 gm/ 50 mls @ 100 mls/hr 12/23/18 13:30 Dextrose IVPB DAILY [facility] Azithromycin 500 mg in 250 mls @ 250 mls/hr 12/23/18 13:30 Zithromax 500mg Ivpb (Pre-Docked) IVPB 12/27/18 10:59 DAILY [facility] Insulin Aspart 1 vial 12/22/18 22:00 12/23/18 11:53 Novolog Vial Sliding Scale - SQ Not Given ACHS [facility] Protocol Methylprednisolone Sodium Succinate 40 mg 12/23/18 13:00 12/23/18 13:14 Solu-Medrol - IVPUSH 40 mg Q8H-IV GE Administration Tamsulosin HCl 0.8 mg 12/23/18 08:30 12/23/18 09:04 Flomax - PO 0.8 mg DAILY@0830 GE Administration ASSESSMENT/PLAN: This is a 73 yo M with PMH of COPD on 3L O2, AF on eliquis, HTN, CHF, recently found to have 3 cm R hepatic lobe mass on CTA Aug 2018 but refused workup, who presented with SOB and admitted with COPD exacerbation. R hepatic lobe mass microcytic anemia COPD exacerbation AF on eliquis HTN CHF -CT abd/pelvis with cont -afp, ca 19-9, CEA -f/u anemia workup Dispo: We will continue to follow the patient. Thank you for this consultative opportunity.
[2018-12-23] MEDS: AZITHROMYCIN IVPB 500 MG/250 ML BAG IVPB SCH (15:58)
[2018-12-23] MEDS: ALBUTEROL SO4 2.5/IPRATROPIUM 0.5 INH SOL 3 ML VIAL.NEB. NEB SCH ×2 (16:02→20:39)
[2018-12-23] MEDS: CEFTRIAXONE 1 GM in DEXTROSE 5%-WATER - 50 ML IVPB SCH ×2 (17:06→19:02)
--- NOTE | 2018-12-23 20:21 | PN ---
Teaching Attending Note Name of Resident: Ruth Foster ATTENDING PHYSICIAN STATEMENT I saw and evaluated the patient. I reviewed the resident's note and discussed the case with the resident. I agree with the resident's findings and plan as documented. SUBJECTIVE: Patient seen and examined Heavy smoker and alcoholic background. Presented with COPD exacerbation History of liver mass detected on prior chest CT. Has hypo/micro anemia. Denies recent significant weight loss . Normal LFT's Reverse albumin /globulin ratio but low serum albumin Plan for CT evaluation Tumor markers-CEA, 19-9, and AFP. Further discussion thereafter -re: tissue . OBJECTIVE: ASSESSMENT AND PLAN:
[2018-12-24] MEDS: ALPRAZolam 0.25 MG TABLET PO SCH ×2 (00:21→06:46)
[2018-12-24] MEDS: methylPREDNISolone NA SUCC 40 MG/1 ML VIAL IVPUSH SCH ×3 (02:00→18:01)
[2018-12-24] MEDS ORDERED: PT OWN MED DRAWER 7, Y5N ONE (04:05)
[2018-12-24] MEDS: ALPRAZolam 2 MG TABLET PO SCH ×4 (06:31→23:33)
[2018-12-24] MEDS: INSULIN SLIDING SCALE (NOVOLOG) 1 VIAL SQ SCH ×4 (06:32→21:53)
[2018-12-24] MEDS: ALBUTEROL SO4 2.5/IPRATROPIUM 0.5 INH SOL 3 ML VIAL.NEB. NEB SCH ×4 (08:05→20:06)
[2018-12-24 08:09] LABS: BASO % 0.1 % (0-2.0); HEMATOCRIT 28.1 % (35.4-49); HEMOGLOBIN 8.8 GM/dL (11.7-16.9); LYMPH % 4.7 % (8-40); MCH 23.5 pg (25.7-33.7); MCHC 31.5 g/dl (32.0-35.9); MEAN CELL VOLUME 74.7 fl (80-96); MEAN PLT VOLUME 7.7 fl (7.5-11.1); MONO % 2.3 % (3.8-10.2); NEUT % 92.9 % (42.8-82.8); PLATELET COUNT 432 K/MM3 (134-434); RBC 3.76 M/mm3 (4.00-5.60); RDW 15.6 % (11.9-15.9); WHITE BLOOD COUNT 8.8 K/mm3 (4.0-10.0)
[2018-12-24 08:53] LABS: ALBUMIN 1.9 g/dl (3.4-5.0); BILIRUBIN,TOTAL 0.2 mg/dL (0.2-1); CALCIUM 8.1 mg/dL (8.5-10.1); CREATININE 0.4 mg/dL (0.55-1.3); POTASSIUM 4.2 mmol/L (3.5-5.1)
--- NOTE | 2018-12-24 09:29 | PN ---
Progress Note (short form) - Note Progress Note: Sitting in bed in NAD on NC O2. Breathing feels OK today. Some dry cough. No hemoptysis. Intake & Output 12/21/18 12/22/18 12/23/18 12/24/18 23:59 23:59 23:59 23:59 Intake Total 1140 200 Balance 1140 200 Weight 160 lb 149 lb 5 oz Last Vital Signs Temp Pulse Resp BP Pulse Ox 98.0 F 50 L 20 114/48 L 93 L 12/24/18 06:00 12/24/18 06:00 12/24/18 06:00 12/24/18 06:00 12/23/18 09:00 Active Medications Albuterol Sulfate (Ventolin 0.083% Nebulizer Soln -) 1 amp NEB Q4H PRN PRN Reason: SHORT OF BREATH/WHEEZING Albuterol/Ipratropium (Duoneb -) 1 amp NEB RQID [facility] Last Admin: 12/23/18 20:39 Dose: 1 amp Alprazolam (Xanax -) 1 mg PO Q6HPO [facility] Last Admin: 12/24/18 06:31 Dose: 1 mg Apixaban (Eliquis -) 5 mg PO BID [facility] Last Admin: 12/23/18 21:43 Dose: 5 mg Atenolol (Tenormin -) 50 mg PO DAILY [facility] Last Admin: 12/23/18 09:04 Dose: 50 mg Clopidogrel Bisulfate (Plavix -) 75 mg PO DAILY [facility] Last Admin: 12/23/18 09:04 Dose: 75 mg Diltiazem HCl (Cardizem Cd -) 120 mg PO DAILY [facility] Last Admin: 12/23/18 09:04 Dose: 120 mg Folic Acid (Folic Acid -) 1 mg PO DAILY [facility] Last Admin: 12/23/18 09:04 Dose: 1 mg Ceftriaxone Sodium 1 gm/ (Dextrose) 50 mls @ 100 mls/hr IVPB DAILY [facility] Last Admin: 12/23/18 19:02 Dose: 100 mls/hr Azithromycin (Zithromax 500mg Ivpb (Pre-Docked)) 500 mg in 250 mls @ 250 mls/ hr IVPB DAILY [facility] Stop: 12/27/18 10:59 Last Admin: 12/23/18 15:58 Dose: 250 mls/hr Insulin Aspart (Novolog Vial Sliding Scale -) 1 vial SQ ACHS [facility]; Protocol Last Admin: 12/24/18 06:32 Dose: Not Given Methylprednisolone Sodium Succinate (Solu-Medrol -) 40 mg IVPUSH Q8H-IV [facility] Last Admin: 12/24/18 02:00 Dose: 40 mg Tamsulosin HCl (Flomax -) 0.8 mg PO DAILY@0830 [facility] Last Admin: 12/23/18 09:04 Dose: 0.8 mg Constitutional: Yes: NAD, thin Eyes: Yes: Conjunctiva Clear, EOM Intact HENT: Yes: Atraumatic, Normocephalic Neck: Yes: Supple, Trachea Midline Cardiovascular: Yes: Regular Rate and Rhythm Respiratory: Yes: Few scattered Rhonchi, no wheeze ...Clubbing: No Gastrointestinal: Yes: Normal Bowel Sounds, Soft. No: Tenderness Edema: No Neurological: Yes: Alert, Oriented Labs: Laboratory Results - last 24 hr 12/23/18 12/23/18 12/24/18 11:48 20:52 06:30 WBC RBC Hgb Hct MCV MCH MCHC RDW Plt Count MPV Absolute Neuts (auto) Neutrophils % Lymphocytes % Monocytes % Eosinophils % Basophils % Nucleated RBC % Retic Count Sodium Potassium Chloride Carbon Dioxide Anion Gap BUN Creatinine Est GFR (CKD-EPI)AfAm Est GFR (CKD-EPI)NonAf POC Glucometer 184 161 135 Random Glucose Calcium Ferritin Total Bilirubin AST ALT Alkaline Phosphatase LD Total Total Protein Albumin Vitamin B12 Free T4 12/24/18 12/24/18 12/24/18 07:05 07:05 07:05 WBC 8.8 RBC 3.76 L Hgb 8.8 L Hct 28.1 L MCV 74.7 L MCH 23.5 L MCHC 31.5 L RDW 15.6 Plt Count 432 MPV 7.7 Absolute Neuts (auto) 8.2 H Neutrophils % 92.9 H Lymphocytes % 4.7 L Monocytes % 2.3 L Eosinophils % 0.0 D Basophils % 0.1 Nucleated RBC % 0 Retic Count 0.83 Sodium 139 Potassium 4.2 Chloride 99 Carbon Dioxide 34 H Anion Gap 5 L BUN 14 Creatinine 0.4 L Est GFR (CKD-EPI)AfAm 134.66 Est GFR (CKD-EPI)NonAf 116.19 POC Glucometer Random Glucose 127 H Calcium 8.1 L Ferritin 81.2 Total Bilirubin 0.2 AST 12 L ALT 8 L Alkaline Phosphatase 57 LD Total 114 Total Protein 6.0 L Albumin 1.9 L Vitamin B12 672 Free T4 1.12 Problem List - Problems (1) Pneumonia Code(s): J18.9 - PNEUMONIA, UNSPECIFIED ORGANISM Qualifiers: (2) COPD exacerbation Code(s): J44.1 - CHRONIC OBSTRUCTIVE PULMONARY DISEASE W (ACUTE) EXACERBATION Assessment/Plan Acute on Chronic Hypoxic Respiratory Failure Pneumonia Acute COPD Exacerbation Atrial Fibrillation LV Diastolic Dysfunction Pulmonary HTN HTN Liver Masses - IV antibiotics - f/u cultures - Short course of medrol - Inhaled bronchodilators standing and PRN - O2 to keep SpO2 >90% - rate control - continue anticoagulation - outpatient f/u of chest imaging - Will likely need tissue diagnosis of liver lesion Dr Turner
[2018-12-24] MEDS ORDERED: cefTRIAXone SODIUM 1 GM VIAL ONE (09:43)
[2018-12-24] MEDS ORDERED: DEXTROSE 5%-WATER - 50 ML IVPB ONE (09:43)
[2018-12-24] MEDS: APIXABAN 5 MG TABLET PO SCH ×2 (10:24→21:52)
[2018-12-24] MEDS: TAMSULOSIN HCL 0.4 MG CAP PO SCH (10:24)
[2018-12-24] MEDS: CLOPIDOGREL BISULFATE 75 MG TABLET (FP) PO SCH (10:25)
[2018-12-24] MEDS: CEFTRIAXONE 1 GM in DEXTROSE 5%-WATER - 50 ML IVPB SCH (10:25)
[2018-12-24] MEDS: FOLIC ACID 1 MG TABLET (FP) PO SCH (10:25)
[2018-12-24] MEDS: AZITHROMYCIN IVPB 500 MG/250 ML BAG IVPB SCH (10:26)
[2018-12-24] MEDS: ATENOLOL 50 MG TABLET (FP) PO SCH (10:38)
--- NOTE | 2018-12-24 11:12 | PN ---
Progress Note (short form) - Note Progress Note: 73 y/o male found sitting comfortably in bed. O2 in place. No SOB, pain or discomfort. Vital Signs Period Temp Pulse Resp BP Sys/Cleaning Pulse Ox Last 24 Hr 97.6 F-98.0 F 50-60 20-20 100-114/45-48 CBC, BMP 12/24/18 07:05 12/24/18 07:05 HEENT- NL Neck- Supple Lungs- dimished lower lobes Heart- S1/S2 Abd- Soft, NT Ext- No LE edema Active Medications Albuterol Sulfate (Ventolin 0.083% Nebulizer Soln -) 1 amp NEB Q4H PRN PRN Reason: SHORT OF BREATH/WHEEZING Albuterol/Ipratropium (Duoneb -) 1 amp NEB RQID [facility] Last Admin: 12/24/18 08:05 Dose: 1 amp Alprazolam (Xanax -) 1 mg PO Q6HPO [facility] Last Admin: 12/24/18 06:31 Dose: 1 mg Apixaban (Eliquis -) 5 mg PO BID [facility] Last Admin: 12/24/18 10:24 Dose: 5 mg Atenolol (Tenormin -) 50 mg PO DAILY [facility] Last Admin: 12/24/18 10:38 Dose: 50 mg Clopidogrel Bisulfate (Plavix -) 75 mg PO DAILY [facility] Last Admin: 12/24/18 10:25 Dose: 75 mg Diltiazem HCl (Cardizem Cd -) 120 mg PO DAILY [facility] Last Admin: 12/24/18 10:24 Dose: 120 mg Folic Acid (Folic Acid -) 1 mg PO DAILY [facility] Last Admin: 12/24/18 10:25 Dose: 1 mg Ceftriaxone Sodium 1 gm/ (Dextrose) 50 mls @ 100 mls/hr IVPB DAILY [facility] Last Admin: 12/24/18 10:25 Dose: 100 mls/hr Azithromycin (Zithromax 500mg Ivpb (Pre-Docked)) 500 mg in 250 mls @ 250 mls/ hr IVPB DAILY [facility] Stop: 12/27/18 10:59 Last Admin: 12/24/18 10:26 Dose: 250 mls/hr Insulin Aspart (Novolog Vial Sliding Scale -) 1 vial SQ ACHS [facility]; Protocol Last Admin: 12/24/18 06:32 Dose: Not Given Methylprednisolone Sodium Succinate (Solu-Medrol -) 40 mg IVPUSH Q8H-IV [facility] Last Admin: 12/24/18 10:26 Dose: 40 mg Tamsulosin HCl (Flomax -) 0.8 mg PO DAILY@0830 [facility] Last Admin: 12/24/18 10:24 Dose: 0.8 mg Assessment/Plan # AE COPD COPD / pHTN/ PNA nebulizer / Steroids / IV ABX pulmonary consult appreciated Chest xray reviewed # A fib rate controlled continue a/c # Anemia blood loss vs chronic disease # Malignancy -liver masses ?metastatic disease Oncology consult appreciated #diastolic HF no evidence of fluid overload # malnutrition albumin level pending anemia Problem List - Problems (1) COPD exacerbation Code(s): J44.1 - CHRONIC OBSTRUCTIVE PULMONARY DISEASE W (ACUTE) EXACERBATION (2) MRSA (methicillin resistant Staphylococcus aureus) carrier Code(s): Z22.322 - CARRIER OR SUSPECTED CARRIER OF METHICILLIN RESIS STAPH (3) Respiratory failure with hypoxia and hypercapnia Code(s): J96.91 - RESPIRATORY FAILURE, UNSPECIFIED WITH HYPOXIA; J96.92 - RESPIRATORY FAILURE, UNSPECIFIED WITH HYPERCAPNIA (4) Atrial fibrillation Code(s): I48.91 - UNSPECIFIED ATRIAL FIBRILLATION Qualifiers: (5) Coronary artery disease Code(s): I25.10 - ATHSCL HEART DISEASE OF [place] CORONARY ARTERY W/O ANG PCTRS Qualifiers: (6) Emphysema of lung Code(s): J43.9 - EMPHYSEMA, UNSPECIFIED (7) HTN (hypertension) Code(s): I10 - ESSENTIAL (PRIMARY) HYPERTENSION Qualifiers: Hypertension type: essential hypertension Qualified Code(s): I10 - Essential (primary) hypertension (8) Malnutrition Code(s): E46 - UNSPECIFIED PROTEIN-CALORIE MALNUTRITION
[2018-12-24] MEDS ORDERED: INSULIN (NOVOLOG) ASPART 100 UNITS/ML 10ML VIAL ONE (11:17)
[2018-12-24 11:40] LABS: ANISOCYTOSIS 1+; MACROCYTOSIS 0; PLATELET ESTIMATE NORMAL
[2018-12-25] MEDS: methylPREDNISolone NA SUCC 40 MG/1 ML VIAL IVPUSH SCH ×3 (01:23→16:50)
[2018-12-25 04:12] LABS: CARCINOEMBRYONIC ANTIGEN 2.9 ng/mL (0.0-4.7)
[2018-12-25] MEDS: ALPRAZolam 2 MG TABLET PO SCH ×4 (06:28→23:45)
[2018-12-25] MEDS: INSULIN SLIDING SCALE (NOVOLOG) 1 VIAL SQ SCH ×4 (06:32→22:49)
[2018-12-25] MEDS: ALBUTEROL SO4 2.5/IPRATROPIUM 0.5 INH SOL 3 ML VIAL.NEB. NEB SCH ×4 (07:35→20:36)
[2018-12-25 07:39] LABS: BASO % 0.1 % (0-2.0); HEMATOCRIT 28.6 % (35.4-49); HEMOGLOBIN 8.8 GM/dL (11.7-16.9); LYMPH % 2.9 % (8-40); MCH 23.3 pg (25.7-33.7); MCHC 30.9 g/dl (32.0-35.9); MEAN CELL VOLUME 75.4 fl (80-96); MEAN PLT VOLUME 7.9 fl (7.5-11.1); MONO % 3.4 % (3.8-10.2); NEUT % 93.6 % (42.8-82.8); PLATELET COUNT 417 K/MM3 (134-434); RBC 3.79 M/mm3 (4.00-5.60); RDW 15.7 % (11.9-15.9); WHITE BLOOD COUNT 9.8 K/mm3 (4.0-10.0)
[2018-12-25 07:48] LABS: CALCIUM 8.3 mg/dL (8.5-10.1); CREATININE 0.4 mg/dL (0.55-1.3); POTASSIUM 4.4 mmol/L (3.5-5.1)
[2018-12-25] MEDS: TAMSULOSIN HCL 0.4 MG CAP PO SCH (09:30)
--- NOTE | 2018-12-25 10:21 | PN ---
Progress Note (short form) - Note Progress Note: 73 y/o male found sitting comfortably in chair. O2 in place via nasal cannula. No c/o pain, sob or discomfort. Vital Signs Period Temp Pulse Resp BP Sys/Cleaning Pulse Ox Last 24 Hr 97.5 F-97.7 F 62-89 21-21 113-131/47-56 97 CBC, BMP 12/25/18 05:45 12/25/18 05:41 HEENT- NL Neck- Supple Lungs- CTAB Heart- S1/S2 Abd- Soft, NT Ext- No LE edema Active Medications Albuterol Sulfate (Ventolin 0.083% Nebulizer Soln -) 1 amp NEB Q4H PRN PRN Reason: SHORT OF BREATH/WHEEZING Last Admin: 12/25/18 00:09 Dose: 1 amp Albuterol/Ipratropium (Duoneb -) 1 amp NEB RQID [facility] Last Admin: 12/25/18 07:35 Dose: 1 amp Alprazolam (Xanax -) 1 mg PO Q6HPO [facility] Last Admin: 12/25/18 06:28 Dose: 1 mg Apixaban (Eliquis -) 5 mg PO BID [facility] Last Admin: 12/24/18 21:52 Dose: 5 mg Atenolol (Tenormin -) 50 mg PO DAILY [facility] Last Admin: 12/24/18 10:38 Dose: 50 mg Clopidogrel Bisulfate (Plavix -) 75 mg PO DAILY [facility] Last Admin: 12/24/18 10:25 Dose: 75 mg Diltiazem HCl (Cardizem Cd -) 120 mg PO DAILY [facility] Last Admin: 12/24/18 10:24 Dose: 120 mg Folic Acid (Folic Acid -) 1 mg PO DAILY [facility] Last Admin: 12/24/18 10:25 Dose: 1 mg Ceftriaxone Sodium 1 gm/ (Dextrose) 50 mls @ 100 mls/hr IVPB DAILY [facility] Last Admin: 12/24/18 10:25 Dose: 100 mls/hr Azithromycin (Zithromax 500mg Ivpb (Pre-Docked)) 500 mg in 250 mls @ 250 mls/ hr IVPB DAILY [facility] Stop: 12/27/18 10:59 Last Admin: 12/24/18 10:26 Dose: 250 mls/hr Insulin Aspart (Novolog Vial Sliding Scale -) 1 vial SQ ACHS [facility]; Protocol Last Admin: 12/25/18 06:32 Dose: Not Given Methylprednisolone Sodium Succinate (Solu-Medrol -) 40 mg IVPUSH Q8H-IV [facility] Last Admin: 12/25/18 01:23 Dose: 40 mg Tamsulosin HCl (Flomax -) 0.8 mg PO DAILY@0830 [facility] Last Admin: 12/24/18 10:24 Dose: 0.8 mg Assessment/Plan # AE COPD COPD / pHTN/ PNA nebulizer / IV Steroids / IV ABX # A fib rate controlled continue a/c #HTN BP stable cont BB # Anemia blood loss vs chronic disease # Malignancy -metastatic disease Oncology consult appreciated Tumur markers wnl- CEA 2.9, AFP 1.2, CA 19-[address] scan showed bibasilar consolidation Multiple hepatic masses suspicious for metastatic dz or primary hepatocellular carcinoma Cholelithiasis Enlarged prostate #diastolic HF no evidence of fluid overload # malnutrition albumin level still pending anemia- trend hgb/hct Problem List - Problems (1) COPD exacerbation Code(s): J44.1 - CHRONIC OBSTRUCTIVE PULMONARY DISEASE W (ACUTE) EXACERBATION (2) MRSA (methicillin resistant Staphylococcus aureus) carrier Code(s): Z22.322 - CARRIER OR SUSPECTED CARRIER OF METHICILLIN RESIS STAPH (3) Respiratory failure with hypoxia and hypercapnia Code(s): J96.91 - RESPIRATORY FAILURE, UNSPECIFIED WITH HYPOXIA; J96.92 - RESPIRATORY FAILURE, UNSPECIFIED WITH HYPERCAPNIA (4) Atrial fibrillation Code(s): I48.91 - UNSPECIFIED ATRIAL FIBRILLATION Qualifiers: (5) Coronary artery disease Code(s): I25.10 - ATHSCL HEART DISEASE OF [place] CORONARY ARTERY W/O ANG PCTRS Qualifiers: (6) Emphysema of lung Code(s): J43.9 - EMPHYSEMA, UNSPECIFIED (7) HTN (hypertension) Code(s): I10 - ESSENTIAL (PRIMARY) HYPERTENSION Qualifiers: Hypertension type: essential hypertension Qualified Code(s): I10 - Essential (primary) hypertension (8) Malnutrition Code(s): E46 - UNSPECIFIED PROTEIN-CALORIE MALNUTRITION
[2018-12-25] MEDS ORDERED: DEXTROSE 5%-WATER - 50 ML IVPB ONE (10:24)
[2018-12-25] MEDS ORDERED: cefTRIAXone SODIUM 1 GM VIAL ONE (10:24)
[2018-12-25] MEDS ORDERED: PT OWN MED DRAWER 7, Y5N ONE (10:25)
[2018-12-25 10:44] LABS: ANISOCYTOSIS 1+; MACROCYTOSIS 0; OVALOCYTE 1+; PLATELET ESTIMATE NORMAL
[2018-12-25] MEDS: AZITHROMYCIN IVPB 500 MG/250 ML BAG IVPB SCH (10:45)
[2018-12-25] MEDS: CEFTRIAXONE 1 GM in DEXTROSE 5%-WATER - 50 ML IVPB SCH (10:45)
[2018-12-25] MEDS: CLOPIDOGREL BISULFATE 75 MG TABLET (FP) PO SCH (10:47)
[2018-12-25] MEDS: FOLIC ACID 1 MG TABLET (FP) PO SCH (10:47)
[2018-12-25] MEDS: ATENOLOL 50 MG TABLET (FP) PO SCH (10:48)
[2018-12-25] MEDS: APIXABAN 5 MG TABLET PO SCH ×2 (10:48→22:48)
[2018-12-25] MEDS ORDERED: INSULIN (NOVOLOG) ASPART 100 UNITS/ML 10ML VIAL ONE ×2 (11:09→16:39)
--- NOTE | 2018-12-25 15:28 | PN ---
Physical Exam: SUBJECTIVE: Patient seen and examined resting in bed nad no acute events, afebrile hemodynamically stable. O2 support NC. denies cp, sob, cugh, abd pain, n/v, f/c. OBJECTIVE: Vital Signs Period Temp Pulse Resp BP Sys/Cleaning Pulse Ox Last 24 Hr 97.5 F-97.7 F 62-89 21-21 113-131/47-56 97 GENERAL: Awake, alert, and fully oriented, in no acute distress. HEAD: Normal with no signs of trauma. EYES:extraocular movements intact, sclera anicteric, conjunctiva clear. EARS, NOSE, THROAT: Moist mucous membranes. NECK: supple without lymphadenopathy or masses, no supraclavicular adenopathy. LUNGS: poor air movement b/l HEART: irregularly irregular, normal S1 and S2 ABDOMEN: Soft, nontender, not distended, normoactive bowel sounds Laboratory Results - last 24 hr 12/24/18 12/24/18 12/24/18 07:05 07:05 17:02 WBC RBC Hgb Hct 30.2 L MCV MCH MCHC RDW Plt Count MPV Absolute Neuts (auto) Neutrophils % Neutrophils % (Manual) Band Neutrophils % Lymphocytes % Lymphocytes % (Manual) Monocytes % Monocytes % (Manual) Eosinophils % Eosinophils % (Manual) Basophils % Basophils % (Manual) Myelocytes % (Man) Promyelocytes % (Man) Blast Cells % (Manual) Nucleated RBC % Metamyelocytes Hypochromia Platelet Estimate Polychromasia Poikilocytosis Anisocytosis Microcytosis Macrocytosis Ovalocytes Schistocytes Haptoglobin 278 H Sodium Potassium Chloride Carbon Dioxide Anion Gap BUN Creatinine Est GFR (CKD-EPI)AfAm Est GFR (CKD-EPI)NonAf POC Glucometer 97 Random Glucose Calcium Iron 22 L TIBC 255 Iron Saturation 9 L Transferrin 210 Tumor Marker AFP 1.2 Carcinoembryonic Ag 2.9 CA 19-9 Antigen 14 Folate 1491 Folate Hemolysate 450.4 12/24/18 12/25/18 12/25/18 21:37 05:41 05:45 WBC 9.8 RBC 3.79 L Hgb 8.8 L Hct 28.6 L MCV 75.4 L MCH 23.3 L MCHC 30.9 L RDW 15.7 Plt Count 417 MPV 7.9 Absolute Neuts (auto) 9.1 H Neutrophils % 93.6 H Neutrophils % (Manual) 95.0 H Band Neutrophils % 1.0 Lymphocytes % 2.9 L D Lymphocytes % (Manual) 2.0 L D Monocytes % 3.4 L Monocytes % (Manual) 2 L D Eosinophils % 0.0 Eosinophils % (Manual) 0.0 Basophils % 0.1 Basophils % (Manual) 0.0 Myelocytes % (Man) 0 Promyelocytes % (Man) 0 Blast Cells % (Manual) 0 Nucleated RBC % 0 Metamyelocytes 0 Hypochromia 1+ Platelet Estimate Normal Polychromasia 1+ Poikilocytosis 0 Anisocytosis 1+ Microcytosis 1+ Macrocytosis 0 Ovalocytes 1+ Schistocytes 1+ Haptoglobin Sodium 141 Potassium 4.4 Chloride 101 Carbon Dioxide 36 H Anion Gap 4 L BUN 14 Creatinine 0.4 L Est GFR (CKD-EPI)AfAm 134.66 Est GFR (CKD-EPI)NonAf 116.19 POC Glucometer 155 Random Glucose 134 H Calcium 8.3 L Iron TIBC Iron Saturation Transferrin Tumor Marker AFP Carcinoembryonic Ag CA 19-9 Antigen Folate Folate Hemolysate 12/25/18 12/25/18 06:02 11:18 WBC RBC Hgb Hct MCV MCH MCHC RDW Plt Count MPV Absolute Neuts (auto) Neutrophils % Neutrophils % (Manual) Band Neutrophils % Lymphocytes % Lymphocytes % (Manual) Monocytes % Monocytes % (Manual) Eosinophils % Eosinophils % (Manual) Basophils % Basophils % (Manual) Myelocytes % (Man) Promyelocytes % (Man) Blast Cells % (Manual) Nucleated RBC % Metamyelocytes Hypochromia Platelet Estimate Polychromasia Poikilocytosis Anisocytosis Microcytosis Macrocytosis Ovalocytes Schistocytes Haptoglobin Sodium Potassium Chloride Carbon Dioxide Anion Gap BUN Creatinine Est GFR (CKD-EPI)AfAm Est GFR (CKD-EPI)NonAf POC Glucometer 135 163 Random Glucose Calcium Iron TIBC Iron Saturation Transferrin Tumor Marker AFP Carcinoembryonic Ag CA 19-9 Antigen Folate Folate Hemolysate Active Medications Generic Name Dose Route Start Last Admin Trade Name Freq PRN Reason Stop Dose Admin Albuterol Sulfate 1 amp 12/23/18 12:51 12/25/18 00:09 Ventolin 0.083% Nebulizer Soln - NEB 1 amp Q4H PRN Administration SHORT OF BREATH/WHEEZING Albuterol/Ipratropium 1 amp 12/23/18 16:00 12/25/18 11:38 Duoneb - NEB 1 amp RQID GE Administration Alprazolam 1 mg 12/24/18 06:15 12/25/18 11:24 Xanax - PO 1 mg Q6HPO GE Administration Apixaban 5 mg 12/22/18 22:00 12/25/18 10:48 Eliquis - PO 5 mg BID GE Administration Atenolol 50 mg 12/23/18 10:00 12/25/18 10:48 Tenormin - PO 50 mg DAILY GE Administration Clopidogrel Bisulfate 75 mg 12/23/18 10:00 12/25/18 10:47 Plavix - PO 75 mg DAILY GE Administration Diltiazem HCl 120 mg 12/23/18 10:00 12/25/18 10:57 Cardizem Cd - PO 120 mg DAILY GE Administration Folic Acid 1 mg 12/23/18 10:00 12/25/18 10:47 Folic Acid - PO 1 mg DAILY GE Administration Ceftriaxone Sodium 1 gm/ 50 mls @ 100 mls/hr 12/23/18 13:30 12/25/18 10:45 Dextrose IVPB 100 mls/hr DAILY GE Administration Azithromycin 500 mg in 250 mls @ 250 mls/hr 12/23/18 13:30 12/25/18 10:45 Zithromax 500mg Ivpb (Pre-Docked) IVPB 12/27/18 10:59 250 mls/hr DAILY GE Administration Insulin Aspart 1 vial 12/22/18 22:00 12/25/18 11:20 Novolog Vial Sliding Scale - SQ Not Given ACHS [facility] Protocol Methylprednisolone Sodium Succinate 40 mg 12/23/18 13:00 12/25/18 10:46 Solu-Medrol - IVPUSH 40 mg Q8H-IV GE Administration Tamsulosin HCl 0.8 mg 12/23/18 08:30 12/25/18 09:30 Flomax - PO 0.8 mg DAILY@0830 [facility] Administration ASSESSMENT/PLAN: This is a 73 yo M with PMH of COPD on 3L O2, AF on eliquis, HTN, CHF, recently found to have 3 cm R hepatic lobe mass on CTA Aug 2018 but refused workup, who presented with SOB and admitted with COPD exacerbation. R hepatic lobe mass microcytic anemia COPD exacerbation AF on eliquis HTN CHF -CT abd/pelvis with cont consistnt with multiple hepatic masses. will require liver biopsy -afp, ca 19-9, CEA wnl -no evidence of hemolysis. low Fe and fe sat. can benefit from venofer.
--- NOTE | 2018-12-25 15:31 | PN ---
Progress Note (short form) - Note Progress Note: Patient seen Results of CT noted Multiple hypodense lesions in liver compatible with mets Suggest most efficient way to establish dx is Ct guided biopsy as next step. Tumor markers are not helpful. Iron studies with Fe++ sat of 9% suggests possible GI primary. As it would be taxing for patient to have prep and GI work up as first step, would do liver bx as next step.
--- NOTE | 2018-12-25 15:48 | PN ---
Progress Note, Physician History of Present Illness: PULMONARY ALERT,NO DISTRESS,-C/O CP,-SOB - Current Medication List Current Medications: Active Medications Albuterol Sulfate (Ventolin 0.083% Nebulizer Soln -) 1 amp NEB Q4H PRN PRN Reason: SHORT OF BREATH/WHEEZING Last Admin: 12/25/18 00:09 Dose: 1 amp Albuterol/Ipratropium (Duoneb -) 1 amp NEB RQID [facility] Last Admin: 12/25/18 11:38 Dose: 1 amp Alprazolam (Xanax -) 1 mg PO Q6HPO [facility] Last Admin: 12/25/18 11:24 Dose: 1 mg Apixaban (Eliquis -) 5 mg PO BID [facility] Last Admin: 12/25/18 10:48 Dose: 5 mg Atenolol (Tenormin -) 50 mg PO DAILY [facility] Last Admin: 12/25/18 10:48 Dose: 50 mg Clopidogrel Bisulfate (Plavix -) 75 mg PO DAILY [facility] Last Admin: 12/25/18 10:47 Dose: 75 mg Diltiazem HCl (Cardizem Cd -) 120 mg PO DAILY [facility] Last Admin: 12/25/18 10:57 Dose: 120 mg Folic Acid (Folic Acid -) 1 mg PO DAILY [facility] Last Admin: 12/25/18 10:47 Dose: 1 mg Ceftriaxone Sodium 1 gm/ (Dextrose) 50 mls @ 100 mls/hr IVPB DAILY [facility] Last Admin: 12/25/18 10:45 Dose: 100 mls/hr Azithromycin (Zithromax 500mg Ivpb (Pre-Docked)) 500 mg in 250 mls @ 250 mls/ hr IVPB DAILY [facility] Stop: 12/27/18 10:59 Last Admin: 12/25/18 10:45 Dose: 250 mls/hr Iron Sucrose 100 mg/ Sodium (Chloride) 100 mls @ 200 mls/hr IVPB ONCE ONE Stop: 12/25/18 16:59 Insulin Aspart (Novolog Vial Sliding Scale -) 1 vial SQ ACHS [facility]; Protocol Last Admin: 12/25/18 11:20 Dose: Not Given Methylprednisolone Sodium Succinate (Solu-Medrol -) 40 mg IVPUSH Q8H-IV [facility] Last Admin: 12/25/18 10:46 Dose: 40 mg Tamsulosin HCl (Flomax -) 0.8 mg PO DAILY@0830 [facility] Last Admin: 12/25/18 09:30 Dose: 0.8 mg - Objective Vital Signs: Vital Signs Temperature 97.7 F 12/25/18 06:00 Pulse Rate 62 12/25/18 06:00 Respiratory Rate 21 H 12/24/18 21:00 Blood Pressure 113/47 L 12/25/18 06:00 O2 Sat by Pulse Oximetry (%) 97 12/24/18 21:00 Constitutional: Yes: Calm, Thin Eyes: Yes: WNL HENT: Yes: WNL Neck: Yes: WNL Cardiovascular: Yes: Pulse Irregular, S1, S2 Respiratory: Yes: Diminished Gastrointestinal: Yes: Normal Bowel Sounds, Soft Extremities: Yes: WNL Edema: No Labs: CBC, BMP 12/25/18 05:45 12/25/18 05:41 INR, PTT INR 1.91 (0.83-1.09) H 12/22/18 11:35 Problem List - Problems (1) Liver masses Code(s): R16.0 - HEPATOMEGALY, NOT ELSEWHERE CLASSIFIED (2) Pneumonia Code(s): J18.9 - PNEUMONIA, UNSPECIFIED ORGANISM Qualifiers: (3) Acute on chronic respiratory failure with hypoxia and hypercapnia Code(s): J96.21 - ACUTE AND CHRONIC RESPIRATORY FAILURE WITH HYPOXIA; J96.22 - ACUTE AND CHRONIC RESPIRATORY FAILURE WITH HYPERCAPNIA (4) Rapid atrial fibrillation Code(s): I48.91 - UNSPECIFIED ATRIAL FIBRILLATION (5) Atrial fibrillation Code(s): I48.91 - UNSPECIFIED ATRIAL FIBRILLATION Qualifiers: (6) Coronary artery disease Code(s): I25.10 - ATHSCL HEART DISEASE OF [place] CORONARY ARTERY W/O ANG PCTRS Qualifiers: Assessment/Plan Problem List - Problems (1) Pneumonia Code(s): J18.9 - PNEUMONIA, UNSPECIFIED ORGANISM Qualifiers: (2) COPD exacerbation Code(s): J44.1 - CHRONIC OBSTRUCTIVE PULMONARY DISEASE W (ACUTE) EXACERBATION Assessment/Plan Acute on Chronic Hypoxic/Hypercapneic Respiratory Failure improving Pneumonia Acute COPD Exacerbation Atrial Fibrillation LV Diastolic Dysfunction Pulmonary HTN HTN Liver Masses - IV antibiotics - medrol taper - Inhaled bronchodilators standing and PRN - O2 to keep SpO2 >90% - rate control - continue anticoagulation - outpatient f/u of chest imaging - Will likely need tissue diagnosis of liver lesion DR COREAS
[2018-12-25] MEDS ORDERED: IRON SUCROSE INJECTION 100 MG in SODIUM CHLORIDE 95 ML IVPB ONE (16:30)
[2018-12-25 18:14] LABS: FREE KAPPA,SERUM 32.4 mg/L (3.3-19.4)
[2018-12-26] MEDS: methylPREDNISolone NA SUCC 40 MG/1 ML VIAL IVPUSH SCH ×2 (04:25→16:48)
[2018-12-26] MEDS: ALPRAZolam 2 MG TABLET PO SCH ×4 (06:16→23:06)
[2018-12-26] MEDS: INSULIN SLIDING SCALE (NOVOLOG) 1 VIAL SQ SCH ×4 (06:31→23:05)
[2018-12-26 07:41] LABS: BASO % 0.1 % (0-2.0); HEMATOCRIT 29.7 % (35.4-49); HEMOGLOBIN 9.4 GM/dL (11.7-16.9); LYMPH % 2.3 % (8-40); MCH 23.7 pg (25.7-33.7); MCHC 31.5 g/dl (32.0-35.9); MEAN CELL VOLUME 75.3 fl (80-96); MEAN PLT VOLUME 7.9 fl (7.5-11.1); NEUT % 93.6 % (42.8-82.8); PLATELET COUNT 426 K/MM3 (134-434); RBC 3.94 M/mm3 (4.00-5.60); WHITE BLOOD COUNT 10.5 K/mm3 (4.0-10.0)
[2018-12-26] MEDS: TAMSULOSIN HCL 0.4 MG CAP PO SCH (07:58)
[2018-12-26] MEDS: ALBUTEROL SO4 2.5/IPRATROPIUM 0.5 INH SOL 3 ML VIAL.NEB. NEB SCH ×4 (08:00→20:50)
--- NOTE | 2018-12-26 08:25 | PN ---
Progress Note (short form) - Note Progress Note: sitting up in chair just finished breakfast no distress Vital Signs Period Temp Pulse Resp BP Sys/Cleaning Pulse Ox Last 24 Hr 97.5 F-98.0 F 48-62 18-19 106-131/53-58 96-97 neck -JVD heart S1/S2 irreg lungs diminished BS no wheezing abd soft ext ankle edema left > right CBC, BMP 12/26/18 06:55 12/26/18 06:55 Active Medications Albuterol Sulfate (Ventolin 0.083% Nebulizer Soln -) 1 amp NEB Q4H PRN PRN Reason: SHORT OF BREATH/WHEEZING Last Admin: 12/25/18 00:09 Dose: 1 amp Albuterol/Ipratropium (Duoneb -) 1 amp NEB RQID [facility] Last Admin: 12/26/18 08:00 Dose: 1 amp Alprazolam (Xanax -) 1 mg PO Q6HPO [facility] Last Admin: 12/26/18 06:16 Dose: 1 mg Apixaban (Eliquis -) 5 mg PO BID [facility] Last Admin: 12/25/18 22:48 Dose: 5 mg Atenolol (Tenormin -) 50 mg PO DAILY [facility] Last Admin: 12/25/18 10:48 Dose: 50 mg Clopidogrel Bisulfate (Plavix -) 75 mg PO DAILY [facility] Last Admin: 12/25/18 10:47 Dose: 75 mg Diltiazem HCl (Cardizem Cd -) 120 mg PO DAILY [facility] Last Admin: 12/25/18 10:57 Dose: 120 mg Folic Acid (Folic Acid -) 1 mg PO DAILY [facility] Last Admin: 12/25/18 10:47 Dose: 1 mg Ceftriaxone Sodium 1 gm/ (Dextrose) 50 mls @ 100 mls/hr IVPB DAILY [facility] Last Admin: 12/25/18 10:45 Dose: 100 mls/hr Azithromycin (Zithromax 500mg Ivpb (Pre-Docked)) 500 mg in 250 mls @ 250 mls/ hr IVPB DAILY [facility] Stop: 12/27/18 10:59 Last Admin: 12/25/18 10:45 Dose: 250 mls/hr Insulin Aspart (Novolog Vial Sliding Scale -) 1 vial SQ ACHS [facility]; Protocol Last Admin: 12/26/18 06:31 Dose: Not Given Methylprednisolone Sodium Succinate (Solu-Medrol -) 40 mg IVPUSH Q12H [facility] Last Admin: 12/26/18 04:25 Dose: 40 mg Tamsulosin HCl (Flomax -) 0.8 mg PO DAILY@0830 [facility] Last Admin: 12/26/18 07:58 Dose: 0.8 mg # AE COPD COPD / pHTN / ? PNA nebulizer / Steroids / IV ABX will taper steroids pulmonary consult appreciated follow up CXR r/o PNA # A fib rate controlled continue a/c # Anemia blood loss vs chronic disease stool giuacs / oncology eval # Malignancy -liver masses ?metastatic disease patient state he is aware liver BX is needed and agrees with continued work up #diastolic HF no evidence of fluid overload # malnutrition albumin 2.1 anemia underweight Problem List - Problems (1) COPD exacerbation Code(s): J44.1 - CHRONIC OBSTRUCTIVE PULMONARY DISEASE W (ACUTE) EXACERBATION (2) MRSA (methicillin resistant Staphylococcus aureus) carrier Code(s): Z22.322 - CARRIER OR SUSPECTED CARRIER OF METHICILLIN RESIS STAPH (3) Respiratory failure with hypoxia and hypercapnia Code(s): J96.91 - RESPIRATORY FAILURE, UNSPECIFIED WITH HYPOXIA; J96.92 - RESPIRATORY FAILURE, UNSPECIFIED WITH HYPERCAPNIA (4) Atrial fibrillation Code(s): I48.91 - UNSPECIFIED ATRIAL FIBRILLATION Qualifiers: (5) Coronary artery disease Code(s): I25.10 - ATHSCL HEART DISEASE OF [place] CORONARY ARTERY W/O ANG PCTRS Qualifiers: (6) Emphysema of lung Code(s): J43.9 - EMPHYSEMA, UNSPECIFIED (7) HTN (hypertension) Code(s): I10 - ESSENTIAL (PRIMARY) HYPERTENSION Qualifiers: Hypertension type: essential hypertension Qualified Code(s): I10 - Essential (primary) hypertension (8) Malnutrition Code(s): E46 - UNSPECIFIED PROTEIN-CALORIE MALNUTRITION
[2018-12-26 08:26] LABS: CALCIUM 8.6 mg/dL (8.5-10.1); CREATININE 0.4 mg/dL (0.55-1.3); POTASSIUM 4.4 mmol/L (3.5-5.1)
[2018-12-26] MEDS ORDERED: DEXTROSE 5%-WATER - 50 ML IVPB ONE (09:55)
[2018-12-26] MEDS ORDERED: cefTRIAXone SODIUM 1 GM VIAL ONE (09:55)
[2018-12-26] MEDS: CEFTRIAXONE 1 GM in DEXTROSE 5%-WATER - 50 ML IVPB SCH (10:01)
[2018-12-26] MEDS: APIXABAN 5 MG TABLET PO SCH ×2 (10:05→23:00)
[2018-12-26] MEDS: FOLIC ACID 1 MG TABLET (FP) PO SCH (10:05)
[2018-12-26] MEDS: ATENOLOL 50 MG TABLET (FP) PO SCH (10:05)
[2018-12-26] MEDS: CLOPIDOGREL BISULFATE 75 MG TABLET (FP) PO SCH (10:05)
[2018-12-26] MEDS: AZITHROMYCIN IVPB 500 MG/250 ML BAG IVPB SCH (10:09)
--- NOTE | 2018-12-26 11:27 | PN ---
Progress Note, Physician History of Present Illness: pulmonary alert,oob-chair,comfortable,-sob - Current Medication List Current Medications: Active Medications Albuterol Sulfate (Ventolin 0.083% Nebulizer Soln -) 1 amp NEB Q4H PRN PRN Reason: SHORT OF BREATH/WHEEZING Last Admin: 12/25/18 00:09 Dose: 1 amp Albuterol/Ipratropium (Duoneb -) 1 amp NEB RQID [facility] Last Admin: 12/26/18 08:00 Dose: 1 amp Alprazolam (Xanax -) 1 mg PO Q6HPO [facility] Last Admin: 12/26/18 06:16 Dose: 1 mg Apixaban (Eliquis -) 5 mg PO BID [facility] Last Admin: 12/26/18 10:05 Dose: 5 mg Atenolol (Tenormin -) 50 mg PO DAILY [facility] Last Admin: 12/26/18 10:05 Dose: 50 mg Clopidogrel Bisulfate (Plavix -) 75 mg PO DAILY [facility] Last Admin: 12/26/18 10:05 Dose: 75 mg Diltiazem HCl (Cardizem Cd -) 120 mg PO DAILY [facility] Last Admin: 12/26/18 10:05 Dose: 120 mg Folic Acid (Folic Acid -) 1 mg PO DAILY [facility] Last Admin: 12/26/18 10:05 Dose: 1 mg Ceftriaxone Sodium 1 gm/ (Dextrose) 50 mls @ 100 mls/hr IVPB DAILY [facility] Last Admin: 12/26/18 10:01 Dose: 100 mls/hr Azithromycin (Zithromax 500mg Ivpb (Pre-Docked)) 500 mg in 250 mls @ 250 mls/ hr IVPB DAILY [facility] Stop: 12/27/18 10:59 Last Admin: 12/26/18 10:09 Dose: 250 mls/hr Insulin Aspart (Novolog Vial Sliding Scale -) 1 vial SQ ACHS [facility]; Protocol Last Admin: 12/26/18 06:31 Dose: Not Given Methylprednisolone Sodium Succinate (Solu-Medrol -) 40 mg IVPUSH Q12H [facility] Last Admin: 12/26/18 04:25 Dose: 40 mg Tamsulosin HCl (Flomax -) 0.8 mg PO DAILY@0830 [facility] Last Admin: 12/26/18 07:58 Dose: 0.8 mg - Objective Vital Signs: Vital Signs Temperature 98.0 F 06/01/19 06:00 Pulse Rate 62 12/26/18 06:00 Respiratory Rate 18 12/26/18 06:00 Blood Pressure 118/57 L 12/26/18 06:00 O2 Sat by Pulse Oximetry (%) 97 12/25/18 21:00 Constitutional: Yes: Calm, Thin Eyes: Yes: WNL HENT: Yes: WNL Neck: Yes: WNL Cardiovascular: Yes: Pulse Irregular, S1, S2 Respiratory: Yes: Diminished Gastrointestinal: Yes: Normal Bowel Sounds, Soft Extremities: Yes: WNL Edema: No Labs: CBC, BMP 12/26/18 06:55 12/26/18 06:55 INR, PTT INR 1.91 (0.83-1.09) H 12/22/18 11:35 Problem List - Problems (1) Liver masses Code(s): R16.0 - HEPATOMEGALY, NOT ELSEWHERE CLASSIFIED (2) Pneumonia Code(s): J18.9 - PNEUMONIA, UNSPECIFIED ORGANISM Qualifiers: (3) Acute on chronic respiratory failure with hypoxia and hypercapnia Code(s): J96.21 - ACUTE AND CHRONIC RESPIRATORY FAILURE WITH HYPOXIA; J96.22 - ACUTE AND CHRONIC RESPIRATORY FAILURE WITH HYPERCAPNIA (4) Rapid atrial fibrillation Code(s): I48.91 - UNSPECIFIED ATRIAL FIBRILLATION (5) Atrial fibrillation Code(s): I48.91 - UNSPECIFIED ATRIAL FIBRILLATION Qualifiers: (6) Coronary artery disease Code(s): I25.10 - ATHSCL HEART DISEASE OF [place] CORONARY ARTERY W/O ANG PCTRS Qualifiers: Assessment/Plan Problem List - Problems (1) Pneumonia Code(s): J18.9 - PNEUMONIA, UNSPECIFIED ORGANISM Qualifiers: (2) COPD exacerbation Code(s): J44.1 - CHRONIC OBSTRUCTIVE PULMONARY DISEASE W (ACUTE) EXACERBATION Assessment/Plan Acute on Chronic Hypoxic/Hypercapneic Respiratory Failure improving Pneumonia Acute COPD Exacerbation Atrial Fibrillation LV Diastolic Dysfunction Pulmonary HTN HTN Liver Masses - IV antibiotics - medrol taper - Inhaled bronchodilators standing and PRN - O2 to keep SpO2 >90% - rate control - continue anticoagulation - outpatient f/u of chest imaging - tissue diagnosis of liver lesion DR COREAS
[2018-12-26 12:38] LABS: ANISOCYTOSIS 0; MACROCYTOSIS 0; PLATELET ESTIMATE NORMAL
[2018-12-26] MEDS ORDERED: PT OWN MED DRAWER 7, Y5N ONE (23:00)
[2018-12-27] MEDS: ALPRAZolam 2 MG TABLET PO SCH ×4 (05:20→23:50)
[2018-12-27] MEDS: methylPREDNISolone NA SUCC 40 MG/1 ML VIAL IVPUSH SCH ×2 (05:20→16:38)
[2018-12-27] MEDS: INSULIN SLIDING SCALE (NOVOLOG) 1 VIAL SQ SCH ×4 (06:25→22:08)
[2018-12-27 06:57] LABS: HEMATOCRIT 29.7 % (35.4-49); HEMOGLOBIN 9.3 GM/dL (11.7-16.9); LYMPH % 3.1 % (8-40); MCH 23.6 pg (25.7-33.7); MCHC 31.2 g/dl (32.0-35.9); MEAN CELL VOLUME 75.9 fl (80-96); MONO % 5.1 % (3.8-10.2); NEUT % 91.8 % (42.8-82.8); PLATELET COUNT 363 K/MM3 (134-434); RBC 3.92 M/mm3 (4.00-5.60); RDW 15.7 % (11.9-15.9); WHITE BLOOD COUNT 10.2 K/mm3 (4.0-10.0)
[2018-12-27 07:18] LABS: CALCIUM 8.3 mg/dL (8.5-10.1); CREATININE 0.4 mg/dL (0.55-1.3); POTASSIUM 4.2 mmol/L (3.5-5.1)
[2018-12-27] MEDS: ALBUTEROL SO4 2.5/IPRATROPIUM 0.5 INH SOL 3 ML VIAL.NEB. NEB SCH ×4 (07:20→19:53)
[2018-12-27] MEDS: TAMSULOSIN HCL 0.4 MG CAP PO SCH (08:13)
[2018-12-27] MEDS ORDERED: cefTRIAXone SODIUM 1 GM VIAL ONE (08:34)
[2018-12-27] MEDS ORDERED: DEXTROSE 5%-WATER - 50 ML IVPB ONE (08:34)
[2018-12-27] MEDS: CEFTRIAXONE 1 GM in DEXTROSE 5%-WATER - 50 ML IVPB SCH (09:16)
[2018-12-27] MEDS: APIXABAN 5 MG TABLET PO SCH ×2 (09:17→22:08)
[2018-12-27] MEDS: CLOPIDOGREL BISULFATE 75 MG TABLET (FP) PO SCH (09:17)
[2018-12-27] MEDS: AZITHROMYCIN IVPB 500 MG/250 ML BAG IVPB SCH (09:17)
[2018-12-27] MEDS: ATENOLOL 50 MG TABLET (FP) PO SCH (09:17)
[2018-12-27] MEDS: FOLIC ACID 1 MG TABLET (FP) PO SCH (09:17)
[2018-12-27 11:51] LABS: ANISOCYTOSIS 1+; MACROCYTOSIS 0; OVALOCYTE 1+; PLATELET ESTIMATE NORMAL
--- NOTE | 2018-12-27 13:55 | PN ---
Progress Note (short form) - Note Progress Note: sitting up in chair no distress Vital Signs Period Temp Pulse Resp BP Sys/Cleaning Pulse Ox Last 24 Hr 97.5 F-98.0 F 48-62 18-19 106-131/53-58 96-97 neck -JVD heart S1/S2 irreg lungs diminished BS no wheezing abd soft ext ankle edema left > right CBC, BMP 12/27/18 06:30 12/27/18 06:30 CBC, BMP 12/26/18 06:55 12/26/18 06:55 Active Medications Albuterol Sulfate (Ventolin 0.083% Nebulizer Soln -) 1 amp NEB Q4H PRN PRN Reason: SHORT OF BREATH/WHEEZING Last Admin: 12/25/18 00:09 Dose: 1 amp Albuterol/Ipratropium (Duoneb -) 1 amp NEB RQID [facility] Last Admin: 12/27/18 11:05 Dose: 1 amp Alprazolam (Xanax -) 1 mg PO Q6HPO [facility] Last Admin: 12/27/18 11:52 Dose: 1 mg Apixaban (Eliquis -) 5 mg PO BID [facility] Last Admin: 12/27/18 09:17 Dose: 5 mg Atenolol (Tenormin -) 50 mg PO DAILY [facility] Last Admin: 12/27/18 09:17 Dose: 50 mg Clopidogrel Bisulfate (Plavix -) 75 mg PO DAILY [facility] Last Admin: 12/27/18 09:17 Dose: 75 mg Diltiazem HCl (Cardizem Cd -) 120 mg PO DAILY [facility] Last Admin: 12/27/18 09:17 Dose: 120 mg Folic Acid (Folic Acid -) 1 mg PO DAILY [facility] Last Admin: 12/27/18 09:17 Dose: 1 mg Ceftriaxone Sodium 1 gm/ (Dextrose) 50 mls @ 100 mls/hr IVPB DAILY [facility] Last Admin: 12/27/18 09:16 Dose: 100 mls/hr Insulin Aspart (Novolog Vial Sliding Scale -) 1 vial SQ ACHS [facility]; Protocol Last Admin: 12/27/18 11:35 Dose: Not Given Methylprednisolone Sodium Succinate (Solu-Medrol -) 40 mg IVPUSH Q12H [facility] Last Admin: 12/27/18 05:20 Dose: 40 mg Tamsulosin HCl (Flomax -) 0.8 mg PO DAILY@0830 [facility] Last Admin: 12/27/18 08:13 Dose: 0.8 mg Last Admin: 12/26/18 07:58 Dose: 0.8 mg # AE COPD COPD / pHTN / ? PNA nebulizer / Steroids / IV ABX taper steroids pulmonary consult appreciated follow up CXR r/o PNA # A fib rate controlled continue a/c # Anemia blood loss vs chronic disease stool giuacs / oncology eval # Malignancy -liver masses ?metastatic disease patient state he is aware liver BX is needed and agrees with continued work up #diastolic HF no evidence of fluid overload # malnutrition albumin 2.1 anemia underweight Problem List - Problems (1) COPD exacerbation Code(s): J44.1 - CHRONIC OBSTRUCTIVE PULMONARY DISEASE W (ACUTE) EXACERBATION (2) MRSA (methicillin resistant Staphylococcus aureus) carrier Code(s): Z22.322 - CARRIER OR SUSPECTED CARRIER OF METHICILLIN RESIS STAPH (3) Respiratory failure with hypoxia and hypercapnia Code(s): J96.91 - RESPIRATORY FAILURE, UNSPECIFIED WITH HYPOXIA; J96.92 - RESPIRATORY FAILURE, UNSPECIFIED WITH HYPERCAPNIA (4) Atrial fibrillation Code(s): I48.91 - UNSPECIFIED ATRIAL FIBRILLATION Qualifiers: (5) Coronary artery disease Code(s): I25.10 - ATHSCL HEART DISEASE OF [place] CORONARY ARTERY W/O ANG PCTRS Qualifiers: (6) Emphysema of lung Code(s): J43.9 - EMPHYSEMA, UNSPECIFIED (7) HTN (hypertension) Code(s): I10 - ESSENTIAL (PRIMARY) HYPERTENSION Qualifiers: Hypertension type: essential hypertension Qualified Code(s): I10 - Essential (primary) hypertension (8) Malnutrition Code(s): E46 - UNSPECIFIED PROTEIN-CALORIE MALNUTRITION
--- NOTE | 2018-12-27 14:23 | PN ---
Progress Note, Physician History of Present Illness: pulmonary alert,comfortable,oob-chair,-sob - Current Medication List Current Medications: Active Medications Albuterol Sulfate (Ventolin 0.083% Nebulizer Soln -) 1 amp NEB Q4H PRN PRN Reason: SHORT OF BREATH/WHEEZING Last Admin: 12/25/18 00:09 Dose: 1 amp Albuterol/Ipratropium (Duoneb -) 1 amp NEB RQID [facility] Last Admin: 12/27/18 11:05 Dose: 1 amp Alprazolam (Xanax -) 1 mg PO Q6HPO [facility] Last Admin: 12/27/18 11:52 Dose: 1 mg Apixaban (Eliquis -) 5 mg PO BID [facility] Last Admin: 12/27/18 09:17 Dose: 5 mg Atenolol (Tenormin -) 50 mg PO DAILY [facility] Last Admin: 12/27/18 09:17 Dose: 50 mg Clopidogrel Bisulfate (Plavix -) 75 mg PO DAILY [facility] Last Admin: 12/27/18 09:17 Dose: 75 mg Diltiazem HCl (Cardizem Cd -) 120 mg PO DAILY [facility] Last Admin: 12/27/18 09:17 Dose: 120 mg Folic Acid (Folic Acid -) 1 mg PO DAILY [facility] Last Admin: 12/27/18 09:17 Dose: 1 mg Ceftriaxone Sodium 1 gm/ (Dextrose) 50 mls @ 100 mls/hr IVPB DAILY [facility] Last Admin: 12/27/18 09:16 Dose: 100 mls/hr Insulin Aspart (Novolog Vial Sliding Scale -) 1 vial SQ ACHS [facility]; Protocol Last Admin: 12/27/18 11:35 Dose: Not Given Methylprednisolone Sodium Succinate (Solu-Medrol -) 40 mg IVPUSH Q12H [facility] Last Admin: 12/27/18 05:20 Dose: 40 mg Tamsulosin HCl (Flomax -) 0.8 mg PO DAILY@0830 [facility] Last Admin: 12/27/18 08:13 Dose: 0.8 mg - Objective Vital Signs: Vital Signs Temperature 97.5 F L 12/27/18 10:00 Pulse Rate 50 L 12/27/18 10:00 Respiratory Rate 20 12/27/18 10:00 Blood Pressure 117/52 L 12/27/18 10:00 O2 Sat by Pulse Oximetry (%) 99 12/27/18 09:00 Constitutional: Yes: Well Nourished, Calm Eyes: Yes: WNL HENT: Yes: WNL Neck: Yes: WNL Cardiovascular: Yes: Pulse Irregular, S1, S2 Respiratory: Yes: Diminished Gastrointestinal: Yes: Normal Bowel Sounds, Soft Extremities: Yes: WNL Edema: Yes Edema: LLE: Trace, RLE: Trace Labs: CBC, BMP 12/27/18 06:30 12/27/18 06:30 INR, PTT INR 1.91 (0.83-1.09) H 12/22/18 11:35 Problem List - Problems (1) Liver masses Code(s): R16.0 - HEPATOMEGALY, NOT ELSEWHERE CLASSIFIED (2) Pneumonia Code(s): J18.9 - PNEUMONIA, UNSPECIFIED ORGANISM Qualifiers: (3) Acute on chronic respiratory failure with hypoxia and hypercapnia Code(s): J96.21 - ACUTE AND CHRONIC RESPIRATORY FAILURE WITH HYPOXIA; J96.22 - ACUTE AND CHRONIC RESPIRATORY FAILURE WITH HYPERCAPNIA (4) Rapid atrial fibrillation Code(s): I48.91 - UNSPECIFIED ATRIAL FIBRILLATION (5) Atrial fibrillation Code(s): I48.91 - UNSPECIFIED ATRIAL FIBRILLATION Qualifiers: (6) Coronary artery disease Code(s): I25.10 - ATHSCL HEART DISEASE OF [place] CORONARY ARTERY W/O ANG PCTRS Qualifiers: Assessment/Plan Problem List - Problems (1) Pneumonia Code(s): J18.9 - PNEUMONIA, UNSPECIFIED ORGANISM Qualifiers: (2) COPD exacerbation Code(s): J44.1 - CHRONIC OBSTRUCTIVE PULMONARY DISEASE W (ACUTE) EXACERBATION Assessment/Plan Acute on Chronic Hypoxic/Hypercapneic Respiratory Failure improving Pneumonia Acute COPD Exacerbation Atrial Fibrillation LV Diastolic Dysfunction Pulmonary HTN HTN Liver Masses - IV antibiotics - medrol taper - Inhaled bronchodilators standing and PRN - O2 to keep SpO2 >90% - rate control - continue anticoagulation - outpatient f/u of chest imaging - tissue diagnosis of liver lesion DR COREAS
[2018-12-28] MEDS: methylPREDNISolone NA SUCC 40 MG/1 ML VIAL IVPUSH SCH (03:52)
[2018-12-28 06:00] LABS: BASO % 0.1 % (0-2.0); HEMATOCRIT 28.4 % (35.4-49); HEMOGLOBIN 8.7 GM/dL (11.7-16.9); LYMPH % 2.3 % (8-40); MCH 23.1 pg (25.7-33.7); MCHC 30.7 g/dl (32.0-35.9); MEAN CELL VOLUME 75.3 fl (80-96); MEAN PLT VOLUME 7.8 fl (7.5-11.1); MONO % 3.5 % (3.8-10.2); NEUT % 94.1 % (42.8-82.8); PLATELET COUNT 366 K/MM3 (134-434); RBC 3.77 M/mm3 (4.00-5.60)
[2018-12-28] MEDS: ALPRAZolam 2 MG TABLET PO SCH ×4 (06:20→23:30)
[2018-12-28] MEDS: INSULIN SLIDING SCALE (NOVOLOG) 1 VIAL SQ SCH ×4 (06:20→21:54)
[2018-12-28 06:25] LABS: CALCIUM 7.9 mg/dL (8.5-10.1); CREATININE 0.5 mg/dL (0.55-1.3); MAGNESIUM 2.3 mg/dL (1.8-2.4)
[2018-12-28] MEDS: ALBUTEROL SO4 2.5/IPRATROPIUM 0.5 INH SOL 3 ML VIAL.NEB. NEB SCH ×4 (07:37→21:00)
--- NOTE | 2018-12-28 08:14 | PN ---
Progress Note (short form) - Note Progress Note: sitting up in chair no distress Vital Signs Period Temp Pulse Resp BP Sys/Cleaning Pulse Ox Last 24 Hr 97.5 F-98.0 F 48-62 18-19 106-131/53-58 96-97 neck -JVD heart S1/S2 irreg lungs diminished BS no wheezing abd soft ext ankle edema left > right CBC, BMP 12/28/18 05:31 12/28/18 05:31 CBC, BMP 12/27/18 06:30 12/27/18 06:30 Active Medications Albuterol Sulfate (Ventolin 0.083% Nebulizer Soln -) 1 amp NEB Q4H PRN PRN Reason: SHORT OF BREATH/WHEEZING Last Admin: 12/25/18 00:09 Dose: 1 amp Albuterol/Ipratropium (Duoneb -) 1 amp NEB RQID [facility] Last Admin: 12/28/18 07:37 Dose: 1 amp Alprazolam (Xanax -) 1 mg PO Q6HPO [facility] Last Admin: 12/28/18 06:20 Dose: 1 mg Apixaban (Eliquis -) 5 mg PO BID [facility] Last Admin: 12/27/18 22:08 Dose: 5 mg Atenolol (Tenormin -) 50 mg PO DAILY [facility] Last Admin: 12/27/18 09:17 Dose: 50 mg Clopidogrel Bisulfate (Plavix -) 75 mg PO DAILY [facility] Last Admin: 12/27/18 09:17 Dose: 75 mg Diltiazem HCl (Cardizem Cd -) 120 mg PO DAILY [facility] Last Admin: 12/27/18 09:17 Dose: 120 mg Folic Acid (Folic Acid -) 1 mg PO DAILY [facility] Last Admin: 12/27/18 09:17 Dose: 1 mg Ceftriaxone Sodium 1 gm/ (Dextrose) 50 mls @ 100 mls/hr IVPB DAILY [facility] Last Admin: 12/27/18 09:16 Dose: 100 mls/hr Insulin Aspart (Novolog Vial Sliding Scale -) 1 vial SQ ACHS [facility]; Protocol Last Admin: 12/28/18 06:20 Dose: Not Given Methylprednisolone Sodium Succinate (Solu-Medrol -) 40 mg IVPUSH DAILY [facility] Tamsulosin HCl (Flomax -) 0.8 mg PO DAILY@0830 [facility] Last Admin: 12/27/18 08:13 Dose: 0.8 mg # AE COPD COPD / pHTN / ? PNA nebulizer / Steroids / IV ABX taper steroids pulmonary consult appreciated # A fib rate controlled continue a/c # Anemia blood loss vs chronic disease stool giuacs / oncology eval # Malignancy -liver masses ?metastatic disease patient state he is aware liver BX is needed and agrees with continued work up #diastolic HF no evidence of fluid overload # malnutrition albumin 2.1 anemia underweight Problem List - Problems (1) COPD exacerbation Code(s): J44.1 - CHRONIC OBSTRUCTIVE PULMONARY DISEASE W (ACUTE) EXACERBATION (2) MRSA (methicillin resistant Staphylococcus aureus) carrier Code(s): Z22.322 - CARRIER OR SUSPECTED CARRIER OF METHICILLIN RESIS STAPH (3) Respiratory failure with hypoxia and hypercapnia Code(s): J96.91 - RESPIRATORY FAILURE, UNSPECIFIED WITH HYPOXIA; J96.92 - RESPIRATORY FAILURE, UNSPECIFIED WITH HYPERCAPNIA (4) Atrial fibrillation Code(s): I48.91 - UNSPECIFIED ATRIAL FIBRILLATION Qualifiers: (5) Coronary artery disease Code(s): I25.10 - ATHSCL HEART DISEASE OF [place] CORONARY ARTERY W/O ANG PCTRS Qualifiers: (6) Emphysema of lung Code(s): J43.9 - EMPHYSEMA, UNSPECIFIED (7) HTN (hypertension) Code(s): I10 - ESSENTIAL (PRIMARY) HYPERTENSION Qualifiers: Hypertension type: essential hypertension Qualified Code(s): I10 - Essential (primary) hypertension (8) Malnutrition Code(s): E46 - UNSPECIFIED PROTEIN-CALORIE MALNUTRITION
[2018-12-28] MEDS: TAMSULOSIN HCL 0.4 MG CAP PO SCH (08:34)
[2018-12-28] MEDS ORDERED: methylPREDNISolone NA SUCC 40 MG/1 ML VIAL IVPUSH SCH (10:00)
[2018-12-28] MEDS ORDERED: DEXTROSE 5%-WATER - 50 ML IVPB ONE (10:13)
[2018-12-28] MEDS ORDERED: cefTRIAXone SODIUM 1 GM VIAL ONE (10:13)
[2018-12-28] MEDS: ATENOLOL 50 MG TABLET (FP) PO SCH (10:17)
[2018-12-28] MEDS: FOLIC ACID 1 MG TABLET (FP) PO SCH (10:17)
[2018-12-28] MEDS: CLOPIDOGREL BISULFATE 75 MG TABLET (FP) PO SCH (10:17)
[2018-12-28] MEDS: APIXABAN 5 MG TABLET PO SCH ×2 (10:18→23:00)
[2018-12-28] MEDS: CEFTRIAXONE 1 GM in DEXTROSE 5%-WATER - 50 ML IVPB SCH (10:19)
--- NOTE | 2018-12-28 10:51 | PN ---
Progress Note (short form) - Note Progress Note: PULMONARY States breathing better. Less cough. No fevers or chills. States that he likely needs help at home cleaning his apartment, feels his living space is contributing to his frequent exacerbations. Vital Signs Period Temp Pulse Resp BP Sys/Cleaning Pulse Ox Last 24 Hr 97.5 F-98.4 F 46-64 16-19 114-124/48-57 98 Gen: NAD in chair Heart: RRR Lung: distant breath sounds, no wheezes Abd: soft, nontender Ext: no edema CBC, BMP 12/28/18 05:31 12/28/18 05:31 Active Medications Albuterol Sulfate (Ventolin 0.083% Nebulizer Soln -) 1 amp NEB Q4H PRN PRN Reason: SHORT OF BREATH/WHEEZING Last Admin: 12/25/18 00:09 Dose: 1 amp Albuterol/Ipratropium (Duoneb -) 1 amp NEB RQID [facility] Last Admin: 12/28/18 07:37 Dose: 1 amp Alprazolam (Xanax -) 1 mg PO Q6HPO [facility] Last Admin: 12/28/18 06:20 Dose: 1 mg Apixaban (Eliquis -) 5 mg PO BID [facility] Last Admin: 12/28/18 10:18 Dose: 5 mg Atenolol (Tenormin -) 25 mg PO DAILY [facility] Last Admin: 12/28/18 10:17 Dose: 25 mg Clopidogrel Bisulfate (Plavix -) 75 mg PO DAILY [facility] Last Admin: 12/28/18 10:17 Dose: 75 mg Diltiazem HCl (Cardizem Cd -) 120 mg PO DAILY [facility] Last Admin: 12/28/18 10:18 Dose: 120 mg Folic Acid (Folic Acid -) 1 mg PO DAILY [facility] Last Admin: 12/28/18 10:17 Dose: 1 mg Ceftriaxone Sodium 1 gm/ (Dextrose) 50 mls @ 100 mls/hr IVPB DAILY [facility] Last Admin: 12/28/18 10:19 Dose: 100 mls/hr Insulin Aspart (Novolog Vial Sliding Scale -) 1 vial SQ ACHS [facility]; Protocol Last Admin: 12/28/18 06:20 Dose: Not Given Methylprednisolone Sodium Succinate (Solu-Medrol -) 40 mg IVPUSH DAILY [facility] Last Admin: 12/28/18 10:19 Dose: 40 mg Tamsulosin HCl (Flomax -) 0.8 mg PO DAILY@0830 [facility] Last Admin: 12/28/18 08:34 Dose: 0.8 mg A/P Acute on Chronic Hypoxic/Hypercapneic Respiratory Failure improving Pneumonia Acute COPD Exacerbation Atrial Fibrillation LV Diastolic Dysfunction Pulmonary HTN HTN Liver Masses - continue antibiotics - can change steroids to PO prednisone and taper - inhaled bronchodilators standing and PRN - O2 to keep SpO2 >90% - rate control - continue anticoagulation - outpatient f/u of chest imaging - for CT guided needle biopsy of liver lesion Problem List - Problems (1) Pneumonia Code(s): J18.9 - PNEUMONIA, UNSPECIFIED ORGANISM Qualifiers: (2) COPD exacerbation Code(s): J44.1 - CHRONIC OBSTRUCTIVE PULMONARY DISEASE W (ACUTE) EXACERBATION
[2018-12-28 11:18] LABS: ANISOCYTOSIS 0; MACROCYTOSIS 0; PLATELET ESTIMATE NORMAL
--- NOTE | 2018-12-28 16:16 | CON.CARD ---
Cardiology Consult (text) - Consultation Consultation Note: History of Present Illness: 73 male admitted with cough, sob. Being treated for acute COPD exac, sob improving. No chest pain, palps, dizziness PMH: afib cad copd HTN - Past Medical History Cardio/Vascular: Yes: AFIB, HTN Pulmonary: Yes: Bronchitis, COPD, O2 Dependent, Pneumonia Dermatology: Yes: Other (B/L feet scars/ scratches) - Past Surgical History Past Surgical History: Yes: Appendectomy, Hernia Repair, Permanent Pacemaker - Alcohol/Substance Use Hx Alcohol Use: No - Smoking History Smoking history: Former smoker Have you smoked in the past 12 months: No If you are a former smoker, when did you quit?: 1979 - Social History History of Recent Travel: No Home Medications - Allergies Allergies/Adverse Reactions: Allergies Allergy/AdvReac Type Severity Reaction Status Date / Time No Known Allergies Allergy Verified 12/22/18 11:30 Ambulatory Orders Alprazolam [Xanax] 1 mg PO QID 03/06/18 Atenolol [Tenormin -] 50 mg PO DAILY 03/06/18 Folic Acid 1 mg PO DAILY 03/06/18 Albuterol 2.5/Ipratropium 0.5 [Duoneb -] 1 vial NEB QID PRN 03/09/18 Diltiazem Cd [Cardizem Cd -] 120 mg PO DAILY #30 cap.cd.24h 03/19/18 Apixaban [Eliquis] 5 mg PO BID 30 Days #60 tablet 04/23/18 Tamsulosin HCl [Flomax -] 0.8 mg PO DAILY@0830 30 Days #60 cap.er.24h 04/23/18 Clopidogrel Bisulfate [Plavix -] 75 mg PO DAILY tablet 08/29/18 Family Disease History - Family Disease History Family History: Denies (no known cmp) Review of Systems - Review of Systems Constitutional: denies: Chills, Fever Eyes: denies: Eye Pain HENT: denies: Nasal Congestion Neck: denies: Stiffness Cardiovascular: denies: Palpitations Respiratory: denies: Orthopnea, PND Gastrointestinal: denies: Diarrhea, Rectal Bleeding Genitourinary: denies: Burning, Hematuria Musculoskeletal: denies: Muscle Pain Integumentary: denies: Rash Neurological: denies: Numbness, Seizure, Syncope Endocrine: denies: Excessive Sweating Hematology/Lymphatic: denies: Excessive Bleeding Vital Signs Period Temp Pulse Resp BP Sys/Cleaning Pulse Ox Last 24 Hr 97.7 F-98.4 F 53-64 16-19 118-124/48-57 98-98 Constitutional: Yes: Well Nourished, No Distress Eyes: No: Sclera Icterus HENT: No: Nasal Congestion Neck: No: Decreased ROM Respiratory: Yes: CTAB No: Accessory Muscle Use, Rales, Rhonchi, wheezes Gastrointestinal: Yes: Normal Bowel Sounds. No: Distention, Hepatomegaly, Palpable Mass, Tenderness Cardiovascular: Yes: Regular Rate and Rhythm JVD: No Carotid Bruit: No PMI: Non-Displaced Heart Sounds: Yes: S1, S2. No: Gallop Murmur: No: Systolic Murmur, Diastolic Murmur Musculoskeletal: Yes: Other (No kyphosis) Extremities: No: Cool, Cyanosis Edema: No Peripheral Pulses: 2+ Left Carotid, 2+ Right Carotid Integumentary: No: Jaundice Neurological: Yes: Alert. Psychiatric: No: Agitated Laboratory Last Values WBC 12.0 K/mm3 (4.0-10.0) H 12/28/18 05:31 RBC 3.77 M/mm3 (4.00-5.60) L 12/28/18 05:31 Hgb 8.7 GM/dL (11.7-16.9) L 12/28/18 05:31 Hct 28.4 % (35.4-49) L 12/28/18 05:31 MCV 75.3 fl (80-96) L 12/28/18 05:31 MCH 23.1 pg (25.7-33.7) L 12/28/18 05:31 MCHC 30.7 g/dl (32.0-35.9) L 12/28/18 05:31 RDW 16.0 % (11.9-15.9) H 12/28/18 05:31 Plt Count 366 K/MM3 (134-434) 12/28/18 05:31 MPV 7.8 fl (7.5-11.1) 12/28/18 05:31 Absolute Neuts (auto) 11.3 K/mm3 (1.5-8.0) H 12/28/18 05:31 Neutrophils % 94.1 % (42.8-82.8) H 12/28/18 05:31 Neutrophils % (Manual) 93.1 % (42.8-82.8) H 12/28/18 05:31 Band Neutrophils % 0.0 % 12/28/18 05:31 Lymphocytes % 2.3 % (8-40) L D 12/28/18 05:31 Lymphocytes % (Manual) 3.9 % (8-40) L 12/28/18 05:31 Monocytes % 3.5 % (3.8-10.2) L 12/28/18 05:31 Monocytes % (Manual) 3 % (3.8-10.2) L 12/28/18 05:31 Eosinophils % 0.0 % (0-4.5) 12/28/18 05:31 Eosinophils % (Manual) 0.0 % (0-4.5) 12/28/18 05:31 Basophils % 0.1 % (0-2.0) D 12/28/18 05:31 Basophils % (Manual) 0.0 % (0-2.0) 12/28/18 05:31 Myelocytes % (Man) 0 % (0-2) 12/28/18 05:31 Promyelocytes % (Man) 0 % (0-2) 12/28/18 05:31 Blast Cells % (Manual) 0 % (0-0) 12/28/18 05:31 Nucleated RBC % 0 % (0-0) 12/28/18 05:31 Metamyelocytes 0 % (0-2) 12/28/18 05:31 Hypochromia 1+ 12/28/18 05:31 Platelet Estimate Normal 12/28/18 05:31 Polychromasia 0 12/28/18 05:31 Poikilocytosis 0 12/28/18 05:31 Anisocytosis 0 12/28/18 05:31 Microcytosis 1+ 12/28/18 05:31 Macrocytosis 0 12/28/18 05:31 Ovalocytes 1+ 12/27/18 06:30 Schistocytes 1+ 12/25/18 05:45 Retic Count 0.83 % (0.5-1.5) 12/24/18 07:05 Haptoglobin 278 mg/dL (34-200) H 12/24/18 07:05 PT with INR 22.70 SEC (9.7-13.0) H 12/22/18 11:35 INR 1.91 (0.83-1.09) H 12/22/18 11:35 PTT (Actin FS) 35.9 SECONDS (25.2-36.5) 12/22/18 11:35 Anticoagulation Therapy No Result Required. 12/22/18 12:09 Puncture Site Right radial 12/22/18 12:09 ABG pH 7.32 (7.35-7.45) L 12/22/18 12:09 ABG pCO2 at Pt Temp 69.9 mmHg (35-45) H 12/22/18 12:09 ABG pO2 at Pt Temp 101 mmHg (80-105) 12/22/18 12:09 ABG HCO3 35.3 mmol/L (22-27) H 12/22/18 12:09 ABG O2 Sat (Measured) 97.1 % (95-98) 12/22/18 12:09 ABG O2 Content 13.0 % vol (15-22) L 12/22/18 12:09 ABG Base Excess 8.1 meq/l (-2-2) H 12/22/18 12:09 Tiago Test Positive 12/22/18 12:09 Carboxyhemoglobin 1.2 % (0-2) 12/22/18 12:09 Methemoglobin 0.0 % (0-2) 12/22/18 12:09 O2 Delivery Device Bipap 12/22/18 12:09 Oxygen Flow Rate 40 12/22/18 12:09 Vent Mode No Result Required. 12/22/18 12:09 Vent Rate 14 12/22/18 12:09 Mechanical Rate No Result Required. 12/22/18 12:09 Pressure Support Vent 12/12/22/18 12:09 Sodium 139 mmol/L (136-145) 12/28/18 05:31 Potassium 4.0 mmol/L (3.5-5.1) 12/28/18 05:31 Chloride 100 mmol/L (98-107) 12/28/18 05:31 Carbon Dioxide 36 mmol/L (21-32) H 12/28/18 05:31 Anion Gap 3 MMOL/L (8-16) L 12/28/18 05:31 BUN 13 mg/dL (7-18) 12/28/18 05:31 Creatinine 0.5 mg/dL (0.55-1.3) L 12/28/18 05:31 Est GFR (CKD-EPI)AfAm 122.86 12/28/18 05:31 Est GFR (CKD-EPI)NonAf 106.01 12/28/18 05:31 POC Glucometer 130 UNITS (80-120) 12/28/18 05:54 Random Glucose 138 mg/dL (74-106) H 12/28/18 05:31 Calcium 7.9 mg/dL (8.5-10.1) L 12/28/18 05:31 Magnesium 2.3 mg/dL (1.8-2.4) 12/28/18 05:31 Iron 22 ug/dL (38-169) L 12/24/18 07:05 TIBC 255 ug/dL (250-450) 12/24/18 07:05 Iron Saturation 9 % (15-55) L 12/24/18 07:05 Transferrin 210 mg/dL (200-370) 12/24/18 07:05 Ferritin 81.2 ng/ml (8-388) 12/24/18 07:05 Total Bilirubin 0.2 mg/dL (0.2-1) 12/24/18 07:05 AST 12 U/L (15-37) L 12/24/18 07:05 ALT 8 U/L (13-61) L 12/24/18 07:05 Alkaline Phosphatase 57 U/L (45-117) 12/24/18 07:05 LD Total 114 U/L (87-246) 12/24/18 07:05 Creatine Kinase 59 U/L (26-308) 12/22/18 11:35 Troponin I < 0.02 ng/ml (0.00-0.05) 12/22/18 11:35 B-Natriuretic Peptide 721.2 pg/ml (5-450) H 12/22/18 11:35 Total Protein 6.0 g/dl (6.4-8.2) L 12/24/18 07:05 Total Protein (PEP) 5.9 g/dL (6.0-8.5) L 12/24/18 07:05 Albumin 1.9 g/dl (3.4-5.0) L 12/24/18 07:05 Albumin (PEP) 2.2 gm/dl (2.9-4.4) L 12/24/18 07:05 Globulin 3.7 g/dL (2.2-3.9) 12/24/18 07:05 Albumin/Globulin Ratio 0.6 (0.7-1.7) L 12/24/18 07:05 Beta Globulins 0.9 gm/dL (0.7-1.3) 12/24/18 07:05 Tumor Marker AFP 1.2 ng/ml (0.0-8.3) 12/24/18 07:05 Carcinoembryonic Ag 2.9 ng/mL (0.0-4.7) 12/24/18 07:05 CA 19-9 Antigen 14 U/mL (0-35) 12/24/18 07:05 Vitamin B12 672 pg/ml (193-986) 12/24/18 07:05 Folate 1491 ng/mL (>498) 12/24/18 07:05 Folate Hemolysate 450.4 ng/mL (Not Estab.) 12/24/18 07:05 TSH 0.23 uIU/ml (0.358-3.74) L D 12/23/18 07:00 Free T4 1.12 ng/dl (0.76-1.16) 12/24/18 07:05 HEATHER M-Dashawn Not observed g/dL (Not Observed) 12/24/18 07:05 Free [place] LC, Quant 32.4 mg/L (3.3-19.4) H 12/24/18 07:05 Free Lambda LC, Quant 25.6 mg/L (5.7-26.3) 12/24/18 07:05 Free [place]/Lambda Ratio 1.27 (0.26-1.65) 12/24/18 07:05 Assessment/Plan EKG: sinus, old septal infarct, no ischemic changes Echo 02/2018: nl lv/rv, mild tr, mod phtn echo 07/2018 nl LV/RV fn, mild MR, mod TR, PASP at least 41 mmHg sob, copd, PNA -manage per primary, pulm - on steroids, abx -BNP 712 vs 2100 prior, euvolemic on exam. cad: - trop neg x 2 - continue plavix, eliquis - holding statin - likely liver malignancy afib/flutter - stable, cont home diltiazem, atenolol, eliquis htn: -bp controlled -cont home meds liver masses - manage per onc
[2018-12-29] MEDS: ALPRAZolam 2 MG TABLET PO SCH ×3 (05:55→17:49)
[2018-12-29] MEDS: INSULIN SLIDING SCALE (NOVOLOG) 1 VIAL SQ SCH ×3 (06:37→16:23)
[2018-12-29 07:52] LABS: BASO % 0.1 % (0-2.0); HEMATOCRIT 32.1 % (35.4-49); LYMPH % 4.2 % (8-40); MCH 23.8 pg (25.7-33.7); MEAN CELL VOLUME 76.6 fl (80-96); MEAN PLT VOLUME 8.1 fl (7.5-11.1); MONO % 6.5 % (3.8-10.2); NEUT % 89.2 % (42.8-82.8); PLATELET COUNT 399 K/MM3 (134-434); RBC 4.19 M/mm3 (4.00-5.60); RDW 16.2 % (11.9-15.9); WHITE BLOOD COUNT 16.3 K/mm3 (4.0-10.0)
[2018-12-29 08:10] LABS: ALBUMIN 2.2 g/dl (3.4-5.0); BILIRUBIN,TOTAL 0.2 mg/dL (0.2-1); CALCIUM 8.6 mg/dL (8.5-10.1); CREATININE 0.4 mg/dL (0.55-1.3); POTASSIUM 4.1 mmol/L (3.5-5.1); TOT PROT 5.9 g/dl (6.4-8.2)
[2018-12-29] MEDS: TAMSULOSIN HCL 0.4 MG CAP PO SCH (08:23)
--- NOTE | 2018-12-29 08:38 | PN ---
Progress Note (short form) - Note Progress Note: sitting up in chair no distress Vital Signs Period Temp Pulse Resp BP Sys/Cleaning Pulse Ox Last 24 Hr 97.6 F-98.7 F 52-64 18-20 118-132/48-80 98-98 neck -JVD heart S1/S2 irreg lungs diminished BS no wheezing abd soft ext ankle edema left > right CBC, BMP 12/29/18 07:15 12/29/18 07:15 CBC, BMP 12/28/18 05:31 12/28/18 05:31 Active Medications Albuterol Sulfate (Ventolin 0.083% Nebulizer Soln -) 1 amp NEB Q4H PRN PRN Reason: SHORT OF BREATH/WHEEZING Last Admin: 12/25/18 00:09 Dose: 1 amp Albuterol/Ipratropium (Duoneb -) 1 amp NEB RQID [facility] Last Admin: 12/28/18 21:00 Dose: 1 amp Alprazolam (Xanax -) 1 mg PO Q6HPO [facility] Last Admin: 12/29/18 05:55 Dose: 1 mg Apixaban (Eliquis -) 5 mg PO BID [facility] Last Admin: 12/28/18 23:00 Dose: 5 mg Atenolol (Tenormin -) 25 mg PO DAILY [facility] Last Admin: 12/28/18 10:17 Dose: 25 mg Clopidogrel Bisulfate (Plavix -) 75 mg PO DAILY [facility] Last Admin: 12/28/18 10:17 Dose: 75 mg Diltiazem HCl (Cardizem Cd -) 120 mg PO DAILY [facility] Last Admin: 12/28/18 10:18 Dose: 120 mg Folic Acid (Folic Acid -) 1 mg PO DAILY [facility] Last Admin: 12/28/18 10:17 Dose: 1 mg Ceftriaxone Sodium 1 gm/ (Dextrose) 50 mls @ 100 mls/hr IVPB DAILY [facility] Last Admin: 12/28/18 10:19 Dose: 100 mls/hr Insulin Aspart (Novolog Vial Sliding Scale -) 1 vial SQ ACHS [facility]; Protocol Last Admin: 12/29/18 06:37 Dose: Not Given Prednisone (Deltasone -) 40 mg PO DAILY [facility] Tamsulosin HCl (Flomax -) 0.8 mg PO DAILY@0830 [facility] Last Admin: 12/29/18 08:23 Dose: 0.8 mg # AE COPD COPD / pHTN / ? PNA nebulizer / Steroids / IV ABX completed taper steroids as out patient # A fib rate controlled / bradycardia - now bettter rates with decreased tenormin Cardiology consult requested and appreciated continue to monitor rate continue a/c # Anemia no evidence of hemolysis. low Fe and fe sat oncology eval appreciated # Malignancy -liver masses ?metastatic disease CT abd/pelvis with cont consistent with multiple hepatic masses. will require liver biopsy afp, ca 19-9, CEA wnl patient state he is aware liver BX is needed and agrees with continued work up will discuss with Onc for out patient follow up #diastolic HF no evidence of fluid overload # malnutrition albumin 2.1 anemia underweight Problem List - Problems (1) COPD exacerbation Code(s): J44.1 - CHRONIC OBSTRUCTIVE PULMONARY DISEASE W (ACUTE) EXACERBATION (2) MRSA (methicillin resistant Staphylococcus aureus) carrier Code(s): Z22.322 - CARRIER OR SUSPECTED CARRIER OF METHICILLIN RESIS STAPH (3) Respiratory failure with hypoxia and hypercapnia Code(s): J96.91 - RESPIRATORY FAILURE, UNSPECIFIED WITH HYPOXIA; J96.92 - RESPIRATORY FAILURE, UNSPECIFIED WITH HYPERCAPNIA (4) Atrial fibrillation Code(s): I48.91 - UNSPECIFIED ATRIAL FIBRILLATION Qualifiers: (5) Coronary artery disease Code(s): I25.10 - ATHSCL HEART DISEASE OF [place] CORONARY ARTERY W/O ANG PCTRS Qualifiers: (6) Emphysema of lung Code(s): J43.9 - EMPHYSEMA, UNSPECIFIED (7) HTN (hypertension) Code(s): I10 - ESSENTIAL (PRIMARY) HYPERTENSION Qualifiers: Hypertension type: essential hypertension Qualified Code(s): I10 - Essential (primary) hypertension (8) Malnutrition Code(s): E46 - UNSPECIFIED PROTEIN-CALORIE MALNUTRITION
[2018-12-29] MEDS: ALBUTEROL SO4 2.5/IPRATROPIUM 0.5 INH SOL 3 ML VIAL.NEB. NEB SCH ×3 (09:00→15:30)
--- NOTE | 2018-12-29 09:27 | DS ---
Physical Examination Vital Signs: Vital Signs Temperature 97.6 F 12/29/18 05:37 Pulse Rate 52 L 12/29/18 05:37 Respiratory Rate 20 12/29/18 05:37 Blood Pressure 126/51 L 12/29/18 05:37 O2 Sat by Pulse Oximetry (%) 98 12/28/18 21:00 Findings/Remarks: 73yo M with PMH of COPD on home oxygen, AFib on eliquis, HTN, CHF, suspicion for liver ?CA as seen on CT in Aug 2018 presenting with shortness of breath to ED.W Per chart review, patient had a CTA in Aug 2018 and was noted to have masses on his liver consistent with neoplasm. Patient has declined work up in the past - aware of liver masses. Patient has not seen an oncologist at time of ED presentation. Patient admitted for AE COPD and evaluated by oncology during hospital stay He will require outpatient follow up This was discussed with patient and with Sonia - both understand Bx to be scheduled as out patient ASSMT and PLAN # AE COPD COPD / pHTN / ? PNA nebulizer / Steroids / IV ABX completed taper steroids as out patient # A fib rate controlled / bradycardia - now better rates with decreased Tenormin Cardiology consult requested and appreciated continue to monitor rate continue a/c # Anemia no evidence of hemolysis. low Fe and fe sat oncology eval appreciated # Malignancy -liver masses ?metastatic disease CT abd/pelvis with cont consistent with multiple hepatic masses. will require liver biopsy afp, ca 19-9, CEA wnl patient state he is aware liver BX is needed and agrees with continued work up will discuss with Onc for out patient follow up #diastolic HF no evidence of fluid overload # malnutrition albumin 2.1 anemia underweight Constitutional: Yes: No Distress, Calm Eyes: Yes: Conjunctiva Clear, EOM Intact HENT: Yes: Atraumatic, Normocephalic Neck: Yes: Supple, Trachea Midline Cardiovascular: Yes: Regular Rate and Rhythm, Pulse Irregular Respiratory: Yes: CTA Bilaterally, Diminished, On Nasal O2. No: Rales, Rhonchi , SOB Gastrointestinal: Yes: Normal Bowel Sounds, Soft ...Rectal Exam: Yes: Deferred Breast(s): Yes: WNL Musculoskeletal: Yes: Muscle Weakness Extremities: No: Calf Tenderness, Cool, Cyanosis, Deformity Edema: LLE: 3+, RLE: 2+ Peripheral Pulses WNL: Yes Integumentary: Yes: WNL Neurological: Yes: Paresthesia, Pre-Existing Deficit, Unsteady Gait Psychiatric: Yes: WNL, Alert, Oriented Labs: CBC, BMP 12/29/18 07:15 12/29/18 07:15 Discharge Summary Reason For Visit: COPD Current Active Problems Acute respiratory failure (Acute) COPD exacerbation (Acute) Liver masses (Acute) Pneumonia (Acute) Condition: Improved - Instructions Disposition: HOME - Home Medications Comprehensive Discharge Medication List: Ambulatory Orders Alprazolam [Xanax] 1 mg PO QID 03/06/18 Atenolol [Tenormin -] 25 mg PO DAILY 03/06/18 Folic Acid 1 mg PO DAILY 03/06/18 Albuterol 2.5/Ipratropium 0.5 [Duoneb -] 1 vial NEB QID PRN 03/09/18 Diltiazem Cd [Cardizem Cd -] 120 mg PO DAILY #30 cap.cd.24h 03/19/18 Apixaban [Eliquis] 5 mg PO BID 30 Days #60 tablet 04/23/18 Tamsulosin HCl [Flomax -] 0.8 mg PO DAILY@0830 30 Days #60 cap.er.24h 04/23/18 Clopidogrel Bisulfate [Plavix -] 75 mg PO DAILY tablet 08/29/18 Feso4 325 BID colace 200 BID Miralx 17 grams PO daily mix with fluids 6oz
[2018-12-29] MEDS ORDERED: cefTRIAXone SODIUM 1 GM VIAL ONE (09:54)
[2018-12-29] MEDS ORDERED: DEXTROSE 5%-WATER - 50 ML IVPB ONE (09:54)
[2018-12-29] MEDS ORDERED: predniSONE 20 MG TABLET (UD) PO SCH (10:00)
[2018-12-29 10:01] VITALS: BP 132/50; PULSE 54; TEMP 97.5
[2018-12-29] MEDS: ATENOLOL 50 MG TABLET (FP) PO SCH (10:01)
[2018-12-29] MEDS: CLOPIDOGREL BISULFATE 75 MG TABLET (FP) PO SCH (10:02)
[2018-12-29] MEDS: APIXABAN 5 MG TABLET PO SCH (10:02)
[2018-12-29] MEDS: CEFTRIAXONE 1 GM in DEXTROSE 5%-WATER - 50 ML IVPB SCH (10:02)
[2018-12-29] MEDS: FOLIC ACID 1 MG TABLET (FP) PO SCH (10:02)
--- NOTE | 2018-12-29 10:43 | PN ---
Progress Note (short form) - Note Progress Note: PULMONARY Breathing continues to improve. No cough or wheezing. Vital Signs Period Temp Pulse Resp BP Sys/Cleaning Pulse Ox Last 24 Hr 97.5 F-98.7 F 52-60 20-20 120-132/50-80 98 Gen: NAD in chair Heart: RRR Lung: distant breath sounds, no wheezes Abd: soft, nontender Ext: no edema CBC, BMP 12/29/18 07:15 12/29/18 07:15 Active Medications Albuterol Sulfate (Ventolin 0.083% Nebulizer Soln -) 1 amp NEB Q4H PRN PRN Reason: SHORT OF BREATH/WHEEZING Last Admin: 12/25/18 00:09 Dose: 1 amp Albuterol/Ipratropium (Duoneb -) 1 amp NEB RQID [facility] Last Admin: 12/28/18 21:00 Dose: 1 amp Alprazolam (Xanax -) 1 mg PO Q6HPO [facility] Last Admin: 12/29/18 05:55 Dose: 1 mg Apixaban (Eliquis -) 5 mg PO BID [facility] Last Admin: 12/29/18 10:02 Dose: 5 mg Atenolol (Tenormin -) 25 mg PO DAILY [facility] Last Admin: 12/29/18 10:01 Dose: 25 mg Clopidogrel Bisulfate (Plavix -) 75 mg PO DAILY [facility] Last Admin: 12/29/18 10:02 Dose: 75 mg Diltiazem HCl (Cardizem Cd -) 120 mg PO DAILY [facility] Last Admin: 12/29/18 10:01 Dose: 120 mg Folic Acid (Folic Acid -) 1 mg PO DAILY [facility] Last Admin: 12/29/18 10:02 Dose: 1 mg Ceftriaxone Sodium 1 gm/ (Dextrose) 50 mls @ 100 mls/hr IVPB DAILY [facility] Last Admin: 12/29/18 10:02 Dose: 100 mls/hr Insulin Aspart (Novolog Vial Sliding Scale -) 1 vial SQ ACHS [facility]; Protocol Last Admin: 12/29/18 06:37 Dose: Not Given Prednisone (Deltasone -) 40 mg PO DAILY [facility] Last Admin: 12/29/18 10:01 Dose: 40 mg Tamsulosin HCl (Flomax -) 0.8 mg PO DAILY@0830 [facility] Last Admin: 12/29/18 08:23 Dose: 0.8 mg A/P Acute on Chronic Hypoxic/Hypercapneic Respiratory Failure improving Pneumonia Acute COPD Exacerbation Atrial Fibrillation LV Diastolic Dysfunction Pulmonary HTN HTN Liver Masses - continue antibiotics - prednisone taper - inhaled bronchodilators standing and PRN - O2 to keep SpO2 >90% - rate control - continue anticoagulation - outpatient f/u of chest imaging - CT guided needle biopsy of liver lesion, can be done as outpt Problem List - Problems (1) Pneumonia Code(s): J18.9 - PNEUMONIA, UNSPECIFIED ORGANISM Qualifiers: (2) COPD exacerbation Code(s): J44.1 - CHRONIC OBSTRUCTIVE PULMONARY DISEASE W (ACUTE) EXACERBATION
--- NOTE | 2018-12-29 12:54 | PN ---
Physical Exam: SUBJECTIVE: Patient seen and examined. He is feeling good, denies fever, chills , pain, weakness. OBJECTIVE: Vital Signs Period Temp Pulse Resp BP Sys/Cleaning Pulse Ox Last 24 Hr 97.5 F-98.7 F 52-60 20-20 120-132/50-80 97-98 GENERAL: The patient is awake, alert, and fully oriented, in no acute distress, sitting in a chair. HEAD: Normal with no signs of trauma. EYES: Extraocular movements intact ENT: Moist mucous membranes, oropharynx: no exudates NECK: Supple. LUNGS: CTA bilaterally, no wheezes, no crackles, no accessory muscle use. HEART: Irregular rate and rhythm, S1, S2 without murmur, rub or gallop. ABDOMEN: Soft, nontender, nondistended, normoactive bowel sounds, no guarding. EXTREMITIES: No edema. NEUROLOGICAL: Normal speech, gait not observed. PSYCH: Normal mood, normal affect. SKIN: Warm, dry, normal turgor, no rashes. Laboratory Results - last 24 hr 12/28/18 12/29/18 12/29/18 21:13 05:49 07:15 WBC 16.3 H RBC 4.19 Hgb 10.0 L Hct 32.1 L MCV 76.6 L MCH 23.8 L MCHC 31.0 L RDW 16.2 H Plt Count 399 MPV 8.1 Absolute Neuts (auto) 14.5 H Neutrophils % 89.2 H Lymphocytes % 4.2 L D Monocytes % 6.5 D Eosinophils % 0.0 Basophils % 0.1 Nucleated RBC % 0 Sodium Potassium Chloride Carbon Dioxide Anion Gap BUN Creatinine Est GFR (CKD-EPI)AfAm Est GFR (CKD-EPI)NonAf POC Glucometer 143 93 Random Glucose Calcium Total Bilirubin AST ALT Alkaline Phosphatase Total Protein Albumin 12/29/18 12/29/18 07:15 11:28 WBC RBC Hgb Hct MCV MCH MCHC RDW Plt Count MPV Absolute Neuts (auto) Neutrophils % Lymphocytes % Monocytes % Eosinophils % Basophils % Nucleated RBC % Sodium 140 Potassium 4.1 Chloride 100 Carbon Dioxide 36 H Anion Gap 3 L BUN 15 Creatinine 0.4 L Est GFR (CKD-EPI)AfAm 134.66 Est GFR (CKD-EPI)NonAf 116.19 POC Glucometer 71 Random Glucose 80 Calcium 8.6 Total Bilirubin 0.2 AST 18 ALT 43 Alkaline Phosphatase 71 Total Protein 5.9 L Albumin 2.2 L Active Medications Generic Name Dose Route Start Last Admin Trade Name Freq PRN Reason Stop Dose Admin Albuterol Sulfate 1 amp 12/23/18 12:51 12/25/18 00:09 Ventolin 0.083% Nebulizer Soln - NEB 1 amp Q4H PRN Administration SHORT OF BREATH/WHEEZING Albuterol/Ipratropium 1 amp 12/23/18 16:00 12/29/18 09:00 Duoneb - NEB 1 amp RQID GE Administration Alprazolam 1 mg 12/24/18 06:15 12/29/18 11:33 Xanax - PO 1 mg Q6HPO GE Administration Apixaban 5 mg 12/22/18 22:00 12/29/18 10:02 Eliquis - PO 5 mg BID GE Administration Atenolol 25 mg 12/28/18 10:00 12/29/18 10:01 Tenormin - PO 25 mg DAILY GE Administration Clopidogrel Bisulfate 75 mg 12/23/18 10:00 12/29/18 10:02 Plavix - PO 75 mg DAILY GE Administration Diltiazem HCl 120 mg 12/23/18 10:00 12/29/18 10:01 Cardizem Cd - PO 120 mg DAILY GE Administration Folic Acid 1 mg 12/23/18 10:00 12/29/18 10:02 Folic Acid - PO 1 mg DAILY GE Administration Ceftriaxone Sodium 1 gm/ 50 mls @ 100 mls/hr 12/23/18 13:30 12/29/18 10:02 Dextrose IVPB 100 mls/hr DAILY GE Administration Insulin Aspart 1 vial 12/22/18 22:00 12/29/18 11:31 Novolog Vial Sliding Scale - SQ Not Given ACHS GE Protocol Prednisone 40 mg 12/29/18 10:00 12/29/18 10:01 Deltasone - PO 40 mg DAILY GE Administration Tamsulosin HCl 0.8 mg 12/23/18 08:30 12/29/18 08:23 Flomax - PO 0.8 mg DAILY@0830 GE Administration ASSESSMENT/PLAN: This is a 73 yo M with PMH of COPD on 3L O2, AF on eliquis, HTN, CHF, recently found to have 3 cm R hepatic lobe mass on CTA Aug 2018 but refused workup, who presented with SOB and admitted with COPD exacerbation. Assesment: R hepatic lobe mass Microcytic anemia COPD exacerbation AF on eliquis HTN CHF Plan: -CT abd/pelvis with contrast with multiple hypodense masses in liver -afp, ca 19-9, CEA nl, not helpful in establishing diagnosis, will require liver biopsy as outpatient, going home today will f/u Dispo: We will continue to follow the patient. Thank you for this consultative opportunity. Problem List - Problems (1) Acute respiratory failure Code(s): J96.00 - ACUTE RESPIRATORY FAILURE, UNSP W HYPOXIA OR HYPERCAPNIA (2) COPD exacerbation Code(s): J44.1 - CHRONIC OBSTRUCTIVE PULMONARY DISEASE W (ACUTE) EXACERBATION (3) Liver masses Code(s): R16.0 - HEPATOMEGALY, NOT ELSEWHERE CLASSIFIED (4) Acute on chronic respiratory failure with hypoxia and hypercapnia Code(s): J96.21 - ACUTE AND CHRONIC RESPIRATORY FAILURE WITH HYPOXIA; J96.22 - ACUTE AND CHRONIC RESPIRATORY FAILURE WITH HYPERCAPNIA (5) MRSA (methicillin resistant Staphylococcus aureus) carrier Code(s): Z22.322 - CARRIER OR SUSPECTED CARRIER OF METHICILLIN RESIS STAPH (6) Metastatic cancer Code(s): C79.9 - SECONDARY MALIGNANT NEOPLASM OF UNSPECIFIED SITE (7) Rapid atrial fibrillation Code(s): I48.91 - UNSPECIFIED ATRIAL FIBRILLATION (8) Atrial fibrillation Code(s): I48.91 - UNSPECIFIED ATRIAL FIBRILLATION Qualifiers: (9) Coronary artery disease Code(s): I25.10 - ATHSCL HEART DISEASE OF [place] CORONARY ARTERY W/O ANG PCTRS Qualifiers: (10) Emphysema of lung Code(s): J43.9 - EMPHYSEMA, UNSPECIFIED (11) HTN (hypertension) Code(s): I10 - ESSENTIAL (PRIMARY) HYPERTENSION Qualifiers: Hypertension type: essential hypertension Qualified Code(s): I10 - Essential (primary) hypertension (12) Malnutrition Code(s): E46 - UNSPECIFIED PROTEIN-CALORIE MALNUTRITION Visit type - Emergency Visit Emergency Visit: Yes ED Registration Date: 12/22/18 Care time: The patient presented to the Emergency Department on the above date and was hospitalized for further evaluation of their emergent condition. - New Patient This patient is new to me today: Yes Date on this admission: 12/29/18 - Critical Care Critical Care patient: No - Discharge Referral Referred to [facility] No
--- NOTE | 2018-12-29 15:21 | PN ---
Progress Note (short form) - Note Progress Note: s: no sob palps dizzy cp Current Medications Generic Name Dose Route Start Last Admin Trade Name Freq PRN Reason Stop Dose Admin Albuterol Sulfate 1 amp 12/23/18 12:51 12/25/18 00:09 Ventolin 0.083% Nebulizer Soln - NEB 1 amp Q4H PRN Administration SHORT OF BREATH/WHEEZING Albuterol/Ipratropium 1 amp 12/23/18 16:00 12/29/18 12:00 Duoneb - NEB 1 amp RQID GE Administration Alprazolam 1 mg 12/24/18 06:15 12/29/18 11:33 Xanax - PO 1 mg Q6HPO GE Administration Apixaban 5 mg 12/22/18 22:00 12/29/18 10:02 Eliquis - PO 5 mg BID GE Administration Atenolol 25 mg 12/28/18 10:00 12/29/18 10:01 Tenormin - PO 25 mg DAILY GE Administration Clopidogrel Bisulfate 75 mg 12/23/18 10:00 12/29/18 10:02 Plavix - PO 75 mg DAILY GE Administration Diltiazem HCl 120 mg 12/23/18 10:00 12/29/18 10:01 Cardizem Cd - PO 120 mg DAILY GE Administration Folic Acid 1 mg 12/23/18 10:00 12/29/18 10:02 Folic Acid - PO 1 mg DAILY GE Administration Ceftriaxone Sodium 1 gm/ 50 mls @ 100 mls/hr 12/23/18 13:30 12/29/18 10:02 Dextrose IVPB 100 mls/hr DAILY GE Administration Insulin Aspart 1 vial 12/22/18 22:00 12/29/18 11:31 Novolog Vial Sliding Scale - SQ Not Given ACHS GE Protocol Prednisone 40 mg 12/29/18 10:00 12/29/18 10:01 Deltasone - PO 40 mg DAILY GE Administration Tamsulosin HCl 0.8 mg 12/23/18 08:30 12/29/18 08:23 Flomax - PO 0.8 mg DAILY@0830 GE Administration Vital Signs Period Temp Pulse Resp BP Sys/Cleaning Pulse Ox Last 24 Hr 97.5 F-98.7 F 52-60 20-20 120-132/50-80 97-98 Constitutional: Yes: Well Nourished, No Distress Eyes: No: Sclera Icterus Respiratory: Yes: CTAB No: Accessory Muscle Use, Rales, Rhonchi, wheezes Gastrointestinal: Yes: Normal Bowel Sounds. No: Distention, Hepatomegaly, Palpable Mass, Tenderness Cardiovascular: Yes: Regular Rate and Rhythm JVD: No Heart Sounds: Yes: S1, S2. No: Gallop Murmur: No: Systolic Murmur, Diastolic Murmur Extremities: No: Cool, Cyanosis Edema: No Integumentary: No: Jaundice diaphoresis Neurological: Yes: Alert. Psychiatric: No: Agitated CBC, BMP 12/29/18 07:15 12/29/18 07:15 Assessment/Plan EKG: sinus, old septal infarct, no ischemic changes Echo 02/2018: nl lv/rv, mild tr, mod phtn echo 07/2018 nl LV/RV fn, mild MR, mod TR, PASP at least 41 mmHg sob, copd, PNA -manage per primary, pulm - on steroids, abx -BNP 712 vs 2100 prior, euvolemic on exam. cad: - trop neg x 2 - continue plavix, eliquis - holding statin - likely liver malignancy afib/flutter - stable, cont home diltiazem, atenolol, eliquis htn: -bp controlled -cont home meds liver masses - manage per onc cardiac cox stable
--- NOTE | 2018-12-29 19:33 | PN ---
Teaching Attending Note Name of Resident: Gayathri Schmidt ATTENDING PHYSICIAN STATEMENT I saw and evaluated the patient. I reviewed the resident's note and discussed the case with the resident. I agree with the resident's findings and plan as documented. SUBJECTIVE: OBJECTIVE: ASSESSMENT AND PLAN: Patient seen and examined Discussed issue of liver biopsy Not inclined to consider at this time.
== END 2018-12-29 20:24 | disposition home or self-care (01) | DRG 193 ==
LOC: JER 11:17 → JERBED 16:38 → J6S 12-23 00:36
PROVIDERS: ADMIT Family Medicine; ATTEND Family Medicine
DX: J18.9 Pneumonia, unspecified organism (principal); J96.22 Acute and chronic respiratory failure with hypercapnia; J44.1 Chronic obstructive pulmonary disease with (acute) exacerbation; D62 Acute posthemorrhagic anemia; E46 Unspecified protein-calorie malnutrition; C22.9 Malignant neoplasm of liver, not specified as primary or secondary; I50.30 Unspecified diastolic (congestive) heart failure; I48.92 Unspecified atrial flutter; D49.0 Neoplasm of unspecified behavior of digestive system; I48.91 Unspecified atrial fibrillation; I11.0 Hypertensive heart disease with heart failure; F03.90 Unspecified dementia, unspecified severity, without behavioral disturbance, psychotic disturbance, mood disturbance, and anxiety; I27.20 Pulmonary hypertension, unspecified; R26.89 Other abnormalities of gait and mobility; I25.10 Atherosclerotic heart disease of native coronary artery without angina pectoris; F41.0 Panic disorder [episodic paroxysmal anxiety]; Z99.81 Dependence on supplemental oxygen; Z22.322 Carrier or suspected carrier of Methicillin resistant Staphylococcus aureus; Z68.20 Body mass index [BMI] 20.0-20.9, adult
CPT/HCPCS: 36415; 36600; 71045-TC-FY; 71275-TC; 74177-TC; 80048; 80053; 82105; 82375; 82378; 82550; 82607; 82728; 82747; 82803; 82962; 83010; 83050; 83540; 83550; 83615; 83735; 83880; 83883; 84155; 84165; 84436; 84439; 84443; 84466; 84484; 85014; 85025; 85027; 85044; 85610; 85730; 86301; 93005; 93010; 94640; 97116-GP; 99284-25; J1756

== ENCOUNTER 2019-02-24 10:32 | Inpatient (IN) | payer OTHER, MEDICARE ==
[2019-02-24] MEDS ORDERED: ALBUTEROL SO4 2.5/IPRATROPIUM 0.5 INH SOL 3 ML VIAL.NEB. NEB ONE ×2 (10:46→11:50)
[2019-02-24] MEDS ORDERED: MAGNESIUM SULF 50% (8.12 MEQ/2 ML-1 GM VIAL) IVPB ONE (11:28)
[2019-02-24] MEDS ORDERED: methylPREDNISolone NA SUCC 125 MG/2 ML VIAL IVPUSH ONE (11:29)
[2019-02-24 11:33] LABS: BASO % 2.6 % (0-2.0); EOS % 5.1 % (0-4.5); HEMATOCRIT 20.7 % (35.4-49); LYMPH % 7.9 % (8-40); MCHC 28.4 g/dl (32.0-35.9); MEAN CELL VOLUME 67.1 fl (80-96); MEAN PLT VOLUME 7.5 fl (7.5-11.1); MONO % 10.7 % (3.8-10.2); NEUT % 73.7 % (42.8-82.8); PLATELET COUNT 357 K/MM3 (134-434); RBC 3.08 M/mm3 (4.00-5.60); RDW 21.7 % (11.9-15.9); WHITE BLOOD COUNT 7.8 K/mm3 (4.0-10.0)
[2019-02-24 11:35] LABS: MCH 19.1 pg (25.7-33.7)
[2019-02-24] MEDS: ALBUTEROL SO4 2.5/IPRATROPIUM 0.5 INH SOL 3 ML VIAL.NEB. NEB SCH ×5 (11:40→20:33)
[2019-02-24] MEDS ORDERED: methylPREDNISolone NA SUCC 125 MG/2 ML VIAL ONE (11:41)
[2019-02-24] MEDS ORDERED: MAGNESIUM SULF 50% (8.12 MEQ/2 ML-1 GM VIAL) ONE (11:41)
[2019-02-24 11:45] LABS: INR 1.74 (0.83-1.09); PROTHROMBIN TIME (PATIENT) 20.7 SEC (9.7-13.0)
--- NOTE | 2019-02-24 11:45 | PDOC ---
Documentation entered by Rico Acuna SCRIBE, acting as scribe for Laney Ruffin MD. Laney Ruffin MD: This documentation has been prepared by the Armand deleon Joel, SCRIBE, under my direction and personally reviewed by me in its entirety. I confirm that the documentation accurately reflects all work, treatment, procedures, and medical decision making performed by me. History of Present Illness - General Chief Complaint: Shortness of Breath Stated Complaint: SOB Time Seen by Provider: 02/24/19 10:40 History Source: Patient, EMS, Family, Old Records - History of Present Illness Initial Comments: 02/24/19 11:35 The patient is a 73 year old male with a significant PMH of COPD (on home O2), Afib on Eliquis, HTN, and CHF who presents to the emergency department for evaluation of shortness of breath beginning approximately this morning, at rest and mild exertion. The patient reports taking multiple Albuterol nebulizers at home without relief. He denies cough or mucus production. Per chart review, patient had a CTA in Aug 2018 and was noted to have masses on his liver consistent with neoplasm. Patient has declined work up in the past - aware of liver masses. Patient has not seen an oncologist at time of ED presentation. Patient admitted in Decemberfor AE COPD and evaluated by oncology during hospital stay Denies fever, chills, chest pain, palpitation, dizziness, weakness, N, V, D, abdominal pain, bladder and bowel problems, leg swelling, No sick contacts or travel. No new changes in medications. denies bloody BMs. Allergies: None Past Medical History: as noted above. Social history: Lives with family. Former smoker. No ETOH or drug use. Surgical history: Hernia repair. Appendectomy. R hip replacement. Meds: as documented in EMR PMD: Dr. Michelle 02/24/19 11:43 02/24/19 12:22 Past History - Past Medical History Allergies/Adverse Reactions: Allergies Allergy/AdvReac Type Severity Reaction Status Date / Time No Known Allergies Allergy Verified 02/24/19 10:57 Home Medications: Ambulatory Orders Alprazolam [Xanax] 1 mg PO QID 03/06/18 Folic Acid 1 mg PO DAILY 03/06/18 Albuterol 2.5/Ipratropium 0.5 [Duoneb -] 1 vial NEB QID PRN 03/09/18 Diltiazem Cd [Cardizem Cd -] 120 mg PO DAILY #30 cap.cd.24h 03/19/18 Apixaban [Eliquis] 5 mg PO BID 30 Days #60 tablet 04/23/18 Tamsulosin HCl [Flomax -] 0.8 mg PO DAILY@0830 30 Days #60 cap.er.24h 04/23/18 Clopidogrel Bisulfate [Plavix -] 75 mg PO DAILY tablet 08/29/18 Albuterol 0.083% Nebulizer Verna [Ventolin 0.083% Nebulizer Soln -] 1 amp NEB Q4H PRN amp 12/29/18 Atenolol [Tenormin -] 25 mg PO DAILY 30 Days #30 tablet 12/29/18 Anemia: No Cancer: Yes Cardiac Disorders: Yes (A-fib) CVA: No COPD: Yes CHF: No Dementia: No Diabetes: No GI Disorders: No Disorders: Yes (BPH) HTN: Yes Hypercholesterolemia: No Liver Disease: No Seizures: No Thyroid Disease: No - Surgical History Abdominal Surgery: Yes (hernia) Appendectomy: Yes GI Surgery: No Lung Surgery: No Orthopedic Surgery: Yes (rt hip replacement) - Immunization History Immunization Up to Date: No - Suicide/Smoking/Psychosocial Hx Smoking History: Former smoker Have you smoked in the past 12 months: No If you are a former smoker, when did you quit?: 1979 Information on smoking cessation initiated: No Hx Alcohol Use: No Drug/Substance Use Hx: No Substance Use Type: None Hx Substance Use Treatment: No Review of Systems - Review of Systems Able to Perform ROS?: Yes Comments:: 02/24/19 11:36 Constitutional: no fevers or chills. HEENT: no headache or dizziness. No congestion. No visual/hearing disturbances. CVS: no cp or syncope. Resp: (+) Shortness of breath. No cough. Gastrointestinal: no abdominal pain, nausea or vomiting. Genitourinary: no urinary sx, hematuria. MUSCULOSKELETAL: No joint pain and swelling. No neck or back pain. SKIN: no redness or skin changes, no discharge, no rash. No wounds. +pallor, + dry skin Hematologic: no easy bruising/bleeding. +anemia NEUROLOGIC: No headache, dizziness, LOC or altered mental status. No weakness, numbness or tingling. Psych: no anxiety or depression Allergic/Immunologic: no allergies All other systems reviewed and negative, or as documented in HPI. 02/24/19 11:42 02/24/19 12:23 *Physical Exam - Vital Signs Last Vital Signs Temp Pulse Resp BP Pulse Ox 98.9 F 79 26 H 140/56 L 98 02/24/19 10:54 02/24/19 10:54 02/24/19 10:54 02/24/19 10:54 02/24/19 10:54 - Physical Exam Comments: 02/24/19 11:36 General: awake and alert, mild respiratory distress on nasal cannula baseline HEENT: (+) Pale conjunctiva. NCAT, PERRL, EOMI, anicteric, moist mucus membranes, clear oropharynx, no oral lesions.. Neck: neck supple, FROM Resp: Mild respiratory distress with tachypnea, on supplemental O2 via nasal cannula. B/l expiratory wheezing, diminished breath sounds. CVS: RRR, no murmurs, 2+ peripheral pulses throughout, bilateral peripheral edema Abdomen: soft, NTND, no rebound or guarding. No CVAT. Rectal: no active bleeding, brown stool Back: nontender, normal inspection and ROM MSK: HAIR x4, ROM intact. No clubbing or cyanosis. normal bulk and tone. Extremities: +3 pitting edema to bilateral lower extremities. no calf tenderness Neuro: alert no focal neurologic deficits Skin: warm and well perfused, cap refill <2 sec, +pallor, dry skin 02/24/19 11:42 ED Treatment Course - LABORATORY CBC & Chemistry Diagram: 02/24/19 11:12 02/24/19 11:12 - RADIOLOGY Radiology Studies Ordered: Category Date Time Status CHEST X-RAY PORTABLE* [RAD] Stat Radiology 02/24/19 10:48 Completed Medical Decision Making - Medical Decision Making 02/24/19 11:43 See HPI for details. Prior notes reviewed, including admissions, discharges and consultations. Vital signs reviewed, mildly tachypneic, sats 98% on supp O2 baseline Vital Signs Temp Pulse Resp BP Pulse Ox 98.9 F 79 26 H 140/56 L 98 02/24/19 10:54 02/24/19 10:54 02/24/19 10:54 02/24/19 10:54 02/24/19 10:54 laboratory results and imaging reviewed, basic labs and lytes wnl, notable for + acute on chronic anemia, Hb 5.9 anemia panel/retic ct, txs sent will need prbc transfusion. guaiac pending, no gross blood on rectal exam, brown stool. CXR_no acute chest pathology/infection/edema, infiltrate. Cardiac panel_neg markers, reassuring. EKG normal sinus rhythm at 77 bpm, no interval abnormalities, narrow QRS, ST and T wave segments and morphology normal. Nonspecific T wave abnormalities - intermittent PVCs. ED course -interventions: pRBC transfusion x 2 units for sx anemia, consented for blood for symptomatic severe anemia Mg, duonebs, steroids solumedrol IV, treating as copd exacerbation as well. updated Mrs Raven Figueroa via phone, also consented for blood for anemia , discussed indications and risks, also agreeable. Admit for anemia/COPD Discussed results and management plan with pt and family member at bedside, agree with impression, treatment indications, recommendations and plan. s/o to Dr Dominguez regarding admission 02/24/19 13:52 *DC/Admit/Observation/Transfer Diagnosis at time of Disposition: COPD exacerbation Anemia Qualifiers: Anemia type: unspecified type Qualified Code(s): D64.9 - Anemia, unspecified - Discharge Dispostion Condition at time of disposition: Fair Decision to Admit order: Yes Decision to Admit order Date/Time: 02/24/19 12:08 Decision to Admit Order Category Date Time Status Decision to Admit to Hospital Routine Admission 02/24/19 12:08 Ordered - Referrals - Patient Instructions - Post Discharge Activity
[2019-02-24 11:48] LABS: ACTIVATED PTT 39.1 SECONDS (25.2-36.5)
[2019-02-24 11:54] LABS: HEMOGLOBIN 5.9 GM/dL (11.7-16.9)
[2019-02-24 12:06] LABS: ALBUMIN 2.9 g/dl (3.4-5.0); BILIRUBIN,TOTAL 0.2 mg/dL (0.2-1); BLOOD UREA NITROGEN 7.9 mg/dL (7-18); CALCIUM 8.1 mg/dL (8.5-10.1); CREATININE 0.5 mg/dL (0.55-1.3); MAGNESIUM 2.3 mg/dL (1.8-2.4); POTASSIUM 4.3 mmol/L (3.5-5.1); TOT PROT 6.2 g/dl (6.4-8.2)
[2019-02-24 12:50] LABS: ANISOCYTOSIS 3+; MACROCYTOSIS 0; PLATELET ESTIMATE NORMAL
[2019-02-24 12:52] LABS: VENOUS PC02 66.3 mmHg (41-51); VENOUS PH 7.31 (7.31-7.41); VENOUS PO2 36.2 mmHg (30-40)
[2019-02-24] MEDS ORDERED: ALBUTEROL SO4 0.083% IH SOL 2.5 MG/3 ML VIAL.NEB. NEB PRN (14:26)
[2019-02-24] MEDS ORDERED: ALBUTEROL SO4 2.5/IPRATROPIUM 0.5 INH SOL 3 ML VIAL.NEB. NEB PRN (14:26)
--- NOTE | 2019-02-24 15:18 | EKG ---
Test Reason : Blood Pressure : / mmHG Vent. Rate : 077 BPM Atrial Rate : 077 BPM P-R Int : 158 ms QRS Dur : 066 ms QT Int : 360 ms P-R-T Axes : 096 054 063 degrees QTc Int : 407 ms POOR DATA QUALITY, INTERPRETATION MAY BE ADVERSELY AFFECTED SINUS RHYTHM WITH SINUS ARRHYTHMIA WITH OCCASIONAL PREMATURE VENTRICULAR COMPLEXES POSSIBLE LEFT ATRIAL ENLARGEMENT SEPTAL INFARCT (CITED ON OR BEFORE 15-APR-2018) ABNORMAL ECG WHEN COMPARED WITH ECG OF 22-DEC-2018 11:48, PREMATURE VENTRICULAR COMPLEXES ARE NOW PRESENT Confirmed by PRAKASH KENDRICK MD ([id number]) on 02/24/2019 3:18:29 PM Referred By: Confirmed By:PRAKASH KENDRICK MD
[2019-02-24] MEDS: methylPREDNISolone NA SUCC 40 MG/1 ML VIAL IVPUSH SCH ×2 (15:30→20:59)
[2019-02-24 15:42] LABS: HEMATOCRIT 22.6 % (35.4-49); MCHC 28.2 g/dl (32.0-35.9); MEAN CELL VOLUME 67.1 fl (80-96); PLATELET COUNT 360 K/MM3 (134-434); RBC 3.37 M/mm3 (4.00-5.60); RDW 21.4 % (11.9-15.9)
[2019-02-24 15:47] LABS: MCH 18.9 pg (25.7-33.7)
[2019-02-24 15:51] LABS: HEMOGLOBIN 6.4 GM/dL (11.7-16.9)
--- NOTE | 2019-02-24 16:18 | PN ---
Progress Note (short form) - Note Progress Note: PULMONARY CONSULTATION DICTATED 02/24/19 IMP ACUTE ON CHRONIC HYPOXIC/HYPERCAPNEIC RESPIRATORY FAILURE ADVANCED COPD O2 DEPENDENT SYMPTOMATIC ANEMIA CHF HTN AFIB LIVER MASSES PLAN NORMAL TRANSFUSION THRESHOLD INHALED BRONCHODILATORS SUPPLEMENTAL O2 MEDROL ABG MONITOR LYTES,H+H STOOL GUAIACS HEME EVALUATION DR COREAS Problem List - Problems (1) Symptomatic anemia Code(s): D64.9 - ANEMIA, UNSPECIFIED (2) Anemia Code(s): D64.9 - ANEMIA, UNSPECIFIED Qualifiers: Anemia type: unspecified type Qualified Code(s): D64.9 - Anemia, unspecified (3) COPD exacerbation Code(s): J44.1 - CHRONIC OBSTRUCTIVE PULMONARY DISEASE W (ACUTE) EXACERBATION (4) Acute on chronic respiratory failure with hypoxia and hypercapnia Code(s): J96.21 - ACUTE AND CHRONIC RESPIRATORY FAILURE WITH HYPOXIA; J96.22 - ACUTE AND CHRONIC RESPIRATORY FAILURE WITH HYPERCAPNIA (5) Liver masses Code(s): R16.0 - HEPATOMEGALY, NOT ELSEWHERE CLASSIFIED (6) Atrial fibrillation Code(s): I48.91 - UNSPECIFIED ATRIAL FIBRILLATION Qualifiers: (7) Coronary artery disease Code(s): I25.10 - ATHSCL HEART DISEASE OF [place] CORONARY ARTERY W/O ANG PCTRS Qualifiers:
[2019-02-24 16:33] LABS: CALCIUM 8.5 mg/dL (8.5-10.1); CREATININE 0.5 mg/dL (0.55-1.3); POTASSIUM 4.6 mmol/L (3.5-5.1)
--- NOTE | 2019-02-24 16:55 | CON.GI ---
Consult Consult Specialty:: Gastroenterology Referred by:: Dr. Georgina Michelle Reason for Consultation:: Anemia - History of Present Illness Chief Complaint: Anemia History of Present Illness: 73yo male h/o COPD on home O2, CAD, A fib on eliquis and plavix, HTN presenting with worsening sob and fatigue asked to evaluate for severe anemia. Pts present at bedside. Pt reporting worsening sob and fatigue prompting hospitalization. Found to be severely anemic, Hb 5.9, therefore GI consulted. Pt reports poor appetite, feels poor dentition has mostly limited his po intake. Denies dysphagia. States he has lost 40-50lbs over the past 1-2 years. Denies abdominal pain, n/v. Reports constipation at baseline, moves bowels every 1-3 days, usually formed, takes colace as needed. Denies rectal bleeding. Last dose of plavix and eliquis was this morning. Hospitalization noted in 11/2018, found to have liver lesions on CT imaging concerning for mets vs multifocal HCC, declined liver biopsy at that time. No prior EGD or colonoscopy. No known family h/o colon ca. Labs reviewed 03/2018, Hb 11-12. 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: Dementia (mild to moderate) Cardio/Vascular: Yes: AFIB, HTN Pulmonary: Yes: Bronchitis, COPD, O2 Dependent, Pneumonia Infectious Disease: Yes: MRSA (hx) Psych: Yes: Anxiety, Panic Musculoskeletal: Yes: Osteoarthritis Dermatology: Yes: Other (B/L feet scars/ scratches) - Past Surgical History Past Surgical History: Yes: Appendectomy, Hernia Repair, Permanent Pacemaker - Alcohol/Substance Use Hx Alcohol Use: No - Smoking History Smoking history: Former smoker Have you smoked in the past 12 months: No If you are a former smoker, when did you quit?: 1979 - Social History History of Recent Travel: No Home Medications - Allergies Allergies/Adverse Reactions: Allergies Allergy/AdvReac Type Severity Reaction Status Date / Time No Known Allergies Allergy Verified 02/24/19 10:57 - Home Medications Home Medications: Ambulatory Orders Alprazolam [Xanax] 1 mg PO QID 03/06/18 Folic Acid 1 mg PO DAILY 03/06/18 Albuterol 2.5/Ipratropium 0.5 [Duoneb -] 1 vial NEB QID PRN 03/09/18 Diltiazem Cd [Cardizem Cd -] 120 mg PO DAILY #30 cap.cd.24h 03/19/18 Apixaban [Eliquis] 5 mg PO BID 30 Days #60 tablet 04/23/18 Tamsulosin HCl [Flomax -] 0.8 mg PO DAILY@0830 30 Days #60 cap.er.24h 04/23/18 Clopidogrel Bisulfate [Plavix -] 75 mg PO DAILY tablet 08/29/18 Albuterol 0.083% Nebulizer Verna [Ventolin 0.083% Nebulizer Soln -] 1 amp NEB Q4H PRN amp 12/29/18 Atenolol [Tenormin -] 25 mg PO DAILY 30 Days #30 tablet 12/29/18 Review of Systems - Review of Systems Constitutional: reports: Loss of Appetite, Unintentional Wgt. Loss Cardiovascular: reports: No Symptoms Respiratory: reports: SOB Gastrointestinal: reports: No Symptoms Physical Exam-GI Vital Signs: Vital Signs Temperature 98 F 02/24/19 13:51 Pulse Rate 64 02/24/19 13:51 Respiratory Rate 22 H 02/24/19 13:51 Blood Pressure 125/53 L 02/24/19 13:51 O2 Sat by Pulse Oximetry (%) 96 02/24/19 13:51 Constitutional: Yes: No Distress, Calm, Cachectic Cardiovascular: Yes: WNL, Regular Rate and Rhythm Respiratory: Yes: WNL, Regular, CTA Bilaterally, Accessory Muscle Use Gastrointestinal Inspection: Yes: WNL ...Palpate: Yes: Other (Abd soft, nt, nd Rectal exam: brown stool, no blood) Labs: CBC, BMP 02/24/19 15:00 02/24/19 15:00 INR, PTT INR 1.74 (0.83-1.09) H 02/24/19 11:12 Problem List - Problems (1) Anemia Assessment/Plan: 73yo male h/o COPD on home O2, CAD, A fib on eliquis and plavix, HTN presenting with worsening sob and fatigue asked to evaluate for severe symptomatic anemia. No overt GI bleeding. Weight loss and evidence iron deficiency noted (Ferritin [address] imaging in 11/2018 revealing liver lesions concerning for malignancy , pt declined liver biopsy at that time. No prior EGD or colonoscopy. -Pt would require EGD and colonoscopy for further evaluation as concern is for underlying malignancy possibly colonic. Detailed discussion taken place with pt and pts regarding risks/benefits of endoscopy including but not limited to bleeding, infection, perforation, side effects of sedation/medications and possible cardiorespiratory compromise. Pt would like to consider further before proceeding. -Recommend cardiology consultation and to clarify if antithrombotics can be safely held in preparation for possible endoscopic procedures. Also need to clarify indication for plavix. If antithrombotics needed would prefer heparin which can be held 4-6 hours prior to endoscopy. (Last dose of plavix and eliquis was today). -PPI daily -Continue optimization from a respiratory standpoint -Monitor Hb and transfuse to maintain Hb >7 -Oncology consult -If overt bleeding or acute drop in Hb not responding to prbc transfusion please notify GI for possible more urgent intervention. Discussed with Dr. Michelle Code(s): D64.9 - ANEMIA, UNSPECIFIED Qualifiers: Anemia type: iron deficiency
[2019-02-24] MEDS: ALPRAZolam 0.25 MG TABLET PO SCH ×2 (17:38→23:44)
[2019-02-24] MEDS ORDERED: PATIENT'S OWN MEDICATION (NON-FORMULARY) (Alprazolam [Xanax] 1 MG) PO SCH (18:00)
--- NOTE | 2019-02-24 18:34 | CONSULT ---
Consultation: CONSULT REQUEST: Heme/Onc HISTORY OF PRESENT ILLNESS: Patient is 73 yo M with a PMhx of COPD (3L O2), A-fib on eliquis, HTN, CHF, microcytic anemia, Liver mass on CTA 09/15 (refused workup), presented to the ED for acute on chronic COPD exacerbation. He was found with a Hgb of 5.9 and crit of 20.7. Patient says he has noticed dark stools over the last few weeks. He does complain of dizziness and fatigue. He has never had a colonoscopy in the past. Patient denies chest pain, sob, nausea, vomiting, hematuria, bloody stools. Patient was seen this morning, was a/o x3. @ 7pm, more confused Pmhx: per HPI Social hx: drinks almost daily, last drink yesterday. 12oz beer x 2, former smoker, quit 4 years ago. Surgical hx: hernia repair, appendectomy Home Medications Medication Instructions Recorded Alprazolam [Xanax] 1 mg PO QID 03/06/18 Folic Acid 1 mg PO DAILY 03/06/18 Albuterol 2.5/Ipratropium 0.5 1 vial NEB QID PRN 03/09/18 [Duoneb -] Diltiazem Cd [Cardizem Cd -] 120 mg PO DAILY #30 cap.cd.24h 03/19/18 Apixaban [Eliquis] 5 mg PO BID 30 Days #60 tablet 04/23/18 Tamsulosin HCl [Flomax -] 0.8 mg PO DAILY@0830 30 Days #60 04/23/18 cap.er.24h Clopidogrel Bisulfate [Plavix -] 75 mg PO DAILY tablet 08/29/18 Albuterol 0.083% Nebulizer Verna 1 amp NEB Q4H PRN amp 12/29/18 [Ventolin 0.083% Nebulizer Soln -] Atenolol [Tenormin -] 25 mg PO DAILY 30 Days #30 tablet 12/29/18 REVIEW OF SYSTEMS: CONSTITUTIONAL: Absent: fever, chills, diaphoresis, generalized weakness, malaise, loss of appetite, weight change HEENT: Absent: rhinorrhea, nasal congestion, throat pain, throat swelling, difficulty swallowing, mouth swelling, ear pain, eye pain, visual changes CARDIOVASCULAR: Absent: chest pain, syncope, palpitations, irregular heart rate, lightheadedness , peripheral edema RESPIRATORY: cough, sob, woodson Absent: orthopnea, wheezing, stridor, hemoptysis GASTROINTESTINAL: melena Absent: abdominal pain, abdominal distension, nausea, vomiting, diarrhea, constipation, hematochezia GENITOURINARY: Absent: dysuria, frequency, urgency, hesitancy, hematuria, flank pain, genital pain HEMATOLOGIC/IMMUNOLOGIC: Absent: easy bleeding, easy bruising, lymphadenopathy, frequent infections NEUROLOGIC: Absent: headache, focal weakness or paresthesias, dizziness, unsteady gait, seizure, mental status changes, bladder or bowel incontinence PHYSICAL EXAMINATION Vital Signs - 24 hr 02/24/19 02/24/19 02/24/19 10:54 11:20 12:00 Temperature 98.9 F Pulse Rate 79 Pulse Rate [ 68 Apical] Respiratory 26 H 22 H Rate Blood Pressure 140/56 L Blood Pressure 120/56 L [Left Arm] O2 Sat by Pulse 98 96 Oximetry (%) 02/24/19 02/24/19 02/24/19 12:51 13:51 15:40 Temperature 98 F 98.1 F Pulse Rate 67 66 Pulse Rate [ 64 Apical] Respiratory 22 H 20 Rate Blood Pressure 125/57 L Blood Pressure 125/53 L [Left Arm] O2 Sat by Pulse 96 96 97 Oximetry (%) GENERAL: a/o x 3a EYES: Pale conjunctiva EARS, NOSE, THROAT: Dry mucous membrane NECK: supple neck LUNGS: decreased breath sounds, +rales HEART: irregular rhythm ABDOMEN: Soft, nontender, not distended LOWER EXTREMITIES: 2+ pulses, +edema Testes: circumsized, no blood seen, no palpable masses Laboratory Results - last 24 hr 02/24/19 02/24/19 02/24/19 12:54 15:00 15:00 WBC 8.0 RBC 3.37 L Hgb 6.4 L* Hct 22.6 L MCV 67.1 L MCH 18.9 L MCHC 28.2 L RDW 21.4 H Plt Count 360 MPV 8.0 Absolute Neuts (auto) Neutrophils % Lymphocytes % Monocytes % Eosinophils % Basophils % Nucleated RBC % Hypochromia Platelet Estimate Polychromasia Poikilocytosis Anisocytosis Microcytosis Macrocytosis Stomatocytes Schistocytes Retic Count PT with INR INR PTT (Actin FS) VBG pH POC VBG pCO2 POC VBG pO2 VBG HCO3 VBG O2 Sat ([place]) VBG Base Excess Sodium 139 Potassium 4.6 Chloride 102 Carbon Dioxide 33 H Anion Gap 4 L BUN 7.0 Creatinine 0.5 L Est GFR (CKD-EPI)AfAm 122.86 Est GFR (CKD-EPI)NonAf 106.01 Random Glucose 108 H Calcium 8.5 Magnesium Ferritin Total Bilirubin AST ALT Alkaline Phosphatase LD Total Creatine Kinase Troponin I Total Protein Albumin Stool Occult Blood Blood Type O POSITIVE Antibody Screen Crossmatch ASSESSMENT/PLAN: #Acute on Chronic Respiratory failure #COPD #A-fib #Likely GI bleed #Liver masses -Patient with likely GI bleed -Eliquis Held -Follow up GI reccs -Transfuse as needed -Patient declined biopsy and liver mass workup in the past. Dispo: We will continue to follow the patient. Thank you for this consultative opportunity. Visit type - Emergency Visit Emergency Visit: Yes ED Registration Date: 02/24/19 Care time: The patient presented to the Emergency Department on the above date and was hospitalized for further evaluation of their emergent condition. - New Patient This patient is new to me today: Yes Date on this admission: 02/25/19 - Critical Care Critical Care patient: No ATTENDING PHYSICIAN STATEMENT I saw and evaluated the patient. I reviewed the resident's note and discussed the case with the resident. I agree with the resident's findings and plan as documented. SUBJECTIVE: OBJECTIVE: ASSESSMENT AND PLAN:
--- NOTE | 2019-02-24 19:01 | PN ---
Teaching Attending Note Name of Resident: Shayy Adler ATTENDING PHYSICIAN STATEMENT I saw and evaluated the patient. I reviewed the resident's note and discussed the case with the resident. I agree with the resident's findings and plan as documented. SUBJECTIVE: Patient seen and examined Currently confused Exacerbation of COPD Anemia- hypo/micro indices dark stool over past several weeks and profound anemia with Hb-5.9 with Hct- 20.7% Currently receiving packed cells Has liver masses and has declined or not followed up with biopsy in past Last Vital Signs Temp Pulse Resp BP Pulse Ox 97.7 F 58 L 20 104/53 L 97 02/24/19 18:00 02/24/19 18:00 02/24/19 18:00 02/24/19 18:00 02/24/19 15:40 Confused decrease papillation of tongue Cor-AF Abd -soft No significant edema CBC, BMP 02/24/19 15:00 02/24/19 15:00 Current Medications Generic Name Dose Route Start Last Admin Trade Name Freq PRN Reason Stop Dose Admin Albuterol Sulfate 1 amp 02/24/19 14:26 Ventolin 0.083% Nebulizer Soln - NEB Q4H PRN SHORT OF BREATH/WHEEZING Albuterol/Ipratropium 1 amp 02/24/19 14:35 02/24/19 18:37 Duoneb - NEB 1 amp RQID GE Administration Alprazolam 1 mg 02/24/19 18:00 02/24/19 17:38 Xanax - PO 1 mg Q6HPO GE Administration Apixaban 5 mg 02/24/19 22:00 Eliquis - PO BID GE Atenolol 25 mg 02/25/19 10:00 Tenormin - PO DAILY GE Diltiazem HCl 120 mg 02/25/19 10:00 Cardizem Cd - PO DAILY GE Docusate Sodium 100 mg 02/24/19 22:00 Colace - PO BID GE Folic Acid 1 mg 02/25/19 10:00 Folic Acid - PO DAILY GE Methylprednisolone Sodium Succinate 80 mg 02/24/19 15:00 02/24/19 15:30 Solu-Medrol - IVPUSH 80 mg Q6H-IV GE Administration Pantoprazole Sodium 40 mg 02/24/19 22:00 Protonix - PO BID GE Polyethylene Glycol 17 gm 02/25/19 10:00 Miralax (For Daily Use) - PO DAILY [facility] Tamsulosin HCl 0.8 mg 02/25/19 08:30 Flomax - PO DAILY@0830 [facility] OBJECTIVE: Impression: Hypercapnea Hypoxia COPD Atrial Fib GI bleeding Liver masses Current issues related to anemia and COPD Have discontinued eliquis in view of bleeding Has declined liver biopsies in past For academic reasons-AFP Transfuse will need GI assessment if feasible. ASSESSMENT AND PLAN:
[2019-02-24] MEDS: DOCUSATE SODIUM 100 MG CAPSULE (FP) PO SCH (20:59)
[2019-02-24] MEDS: PANTOPRAZOLE 40 MG TABLET (FP) PO SCH (20:59)
[2019-02-24] MEDS ORDERED: APIXABAN 5 MG TABLET PO SCH (22:00)
[2019-02-25] MEDS ORDERED: FUROSEMIDE 40 MG/4 ML INJECTABLE VIAL IVPUSH ONE
[2019-02-25] MEDS: methylPREDNISolone NA SUCC 40 MG/1 ML VIAL IVPUSH SCH ×4 (03:13→21:42)
[2019-02-25] MEDS: ALPRAZolam 0.25 MG TABLET PO SCH ×4 (05:03→23:31)
[2019-02-25] MEDS: ALBUTEROL SO4 2.5/IPRATROPIUM 0.5 INH SOL 3 ML VIAL.NEB. NEB SCH ×4 (08:00→20:10)
[2019-02-25 08:10] LABS: HEMOGLOBIN 8.4 GM/dL (11.7-16.9); MCH 22.2 pg (25.7-33.7); MEAN CELL VOLUME 71.7 fl (80-96); MEAN PLT VOLUME 7.9 fl (7.5-11.1); PLATELET COUNT 342 K/MM3 (134-434); RBC 3.77 M/mm3 (4.00-5.60); RDW 26.3 % (11.9-15.9)
[2019-02-25 08:26] LABS: INR 1.39 (0.83-1.09); PROTHROMBIN TIME (PATIENT) 16.5 SEC (9.7-13.0)
[2019-02-25 08:37] LABS: BILIRUBIN,TOTAL 1.2 mg/dL (0.2-1); BLOOD UREA NITROGEN 8.4 mg/dL (7-18); CALCIUM 8.6 mg/dL (8.5-10.1); CREATININE 0.6 mg/dL (0.55-1.3); TOT PROT 6.3 g/dl (6.4-8.2)
--- NOTE | 2019-02-25 08:58 | CONS ---
DATE OF CONSULTATION: 02/24/2019 PULMONARY CONSULTATION REFERRING PHYSICIAN: Georgina Michelle MD HISTORY OF PRESENT ILLNESS: The patient is a 73-year-old white male known to me from previous hospitalization. He has a past medical history of advanced end-stage COPD on home O2, atrial fibrillation on Eliquis, hypertension, CHF, anemia and a history of a liver masses for which he refuses workup. He was admitted to [facility] with complaints of a three-day history of increasing shortness of breath and dyspnea on exertion. The patient states that on Friday, he started developing increasing shortness of breath and dyspnea on exertion. He denied any chest pain, nausea or vomiting. He had a cough without any sputum. He denied any fever or chills. He has had occasional bronchospasm. His symptoms continued to worsen, at which time he presented to the emergency room. In the ER, he was noted to have significant anemia with a hemoglobin of 5 grams. He was subsequently transfused and transferred to the medical floor for further management. He was also started on inhaled bronchodilators and steroids. His ABG revealed evidence of acute hypercapnia, likely [id number] hypercapnic hypoxic respiratory failure. The patient had a CTA of the chest in August and was noted to have liver masses. He has declined a workup. He has a history of tobacco use but quit a few years ago. There is no history of occupational exposure to chemicals or fumes. PAST MEDICAL HISTORY: Again, this includes advanced COPD on home O2, atrial fibrillation on Eliquis, hypertension, CHF and liver masses. SOCIAL HISTORY: History of tobacco use; quit a few years ago. No occupational exposures. REVIEW OF SYSTEMS: Positive dyspnea, positive orthopnea. No chest pain or palpitations. Positive wheezing. No abdominal pain. CURRENT MEDICATIONS: Solu-Medrol 80 q. 6, Flomax, Eliquis, Xanax, albuterol, DuoNeb, Tenormin, Cardizem, Colace, MiraLAX, Lipitor, Protonix and folic acid. PHYSICAL EXAMINATION: General: The patient is an elderly male, awake and alert, mildly dyspneic but in no acute distress. Vital Signs: He is afebrile. Heart rate is 64. Blood pressure is 125/53, respiratory rate 22, O2 saturation is 96% on 3 liters of oxygen. HEENT: Head is normocephalic, atraumatic. Neck: Supple. Heart: Regular. S1, S2. Chest: breath sounds bilaterally with a few expiratory wheezes. Abdomen: Soft. Bowel sounds are positive. Extremities: No cyanosis or edema. LABORATORY: Initial WBC is 7.8, hemoglobin 5.9, hematocrit 20.7. Followup WBC is 8.0, hemoglobin 6.4, hematocrit 22.6 with a platelet count of 360,000. Venous blood gas 7.31, PCO2 is 66, PO2 is 36, bicarb 32. On chemistries, BUN is 7, creatinine is 0.5. A chest x-ray shows no acute infiltrates or effusions. IMPRESSION: [id number] hypoxemic, hypercapnic respiratory failure secondary to multiple factors includin. Advanced COPD, O2 dependent. 2. Severe symptomatic anemia 3. Congestive heart failure. 4. Hypertension. 5. Liver masses. 6. Atrial fibrillation. PLAN: 1. Normal transfusion threshold. 2. Inhaled bronchodilators. 3. Supplemental O2. 4. A short course of Medrol. 5. Check arterial blood gas. 6. Monitor electrolytes. 7. Monitor H and H. 8. Stool for occult blood. 9. Stool guaiacs. 10. Hematology evaluation. AGUSTIN COREAS M.D. [place]/[id number] MTDD
--- NOTE | 2019-02-25 09:42 | PN ---
Progress Note (short form) - Note Progress Note: 73 y/o male found sitting in bed. A and O x 3. Talkative without c/o pain or discomfort. States that he took Oxygen off this am. Current O2 sat 93. Vital Signs Period Temp Pulse Resp BP Sys/Cleaning Pulse Ox Last 24 Hr 97.7 F-98.9 F 50-79 18-26 104-140/53-64 96-98 CBC, BMP 02/25/19 07:00 02/25/19 07:00 HEENT- Normocephalic. Neck-supple Lungs- CTAB Heart- S1/S2 Abd-soft, NT Ext- No LE edema Active Medications Albuterol Sulfate (Ventolin 0.083% Nebulizer Soln -) 1 amp NEB Q4H PRN PRN Reason: SHORT OF BREATH/WHEEZING Albuterol/Ipratropium (Duoneb -) 1 amp NEB RQID [facility] Last Admin: 02/25/19 08:00 Dose: 1 amp Alprazolam (Xanax -) 1 mg PO Q6HPO [facility] Last Admin: 02/25/19 05:03 Dose: 1 mg Atenolol (Tenormin -) 25 mg PO DAILY [facility] Diltiazem HCl (Cardizem Cd -) 120 mg PO DAILY [facility] Docusate Sodium (Colace -) 100 mg PO BID [facility] Last Admin: 02/24/19 20:59 Dose: 100 mg Folic Acid (Folic Acid -) 1 mg PO DAILY [facility] Methylprednisolone Sodium Succinate (Solu-Medrol -) 80 mg IVPUSH Q6H-IV [facility] Last Admin: 02/25/19 03:13 Dose: 80 mg Pantoprazole Sodium (Protonix -) 40 mg PO BID [facility] Last Admin: 02/24/19 20:59 Dose: 40 mg Polyethylene Glycol (Miralax (For Daily Use) -) 17 gm PO DAILY [facility] Tamsulosin HCl (Flomax -) 0.8 mg PO DAILY@0830 [facility]
--- NOTE | 2019-02-25 09:50 | HP ---
Admitting History and Physical - Admission Chief Complaint: 73 y/o male admitted for worsening SOB. PMHx includes COPD, Afib, HTN and BPH. 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: Dementia (mild to moderate) Cardiovascular: Yes: AFIB, HTN Pulmonary: Yes: Bronchitis, COPD, O2 Dependent, Pneumonia Heme/Onc: Yes: Anemia Infectious Disease: Yes: MRSA (hx) Psych: Yes: Anxiety, Panic Musculoskeletal: Yes: Osteoarthritis Dermatology: Yes: Other (B/L feet scars/ scratches) - Past Surgical History Past Surgical History: Yes: Appendectomy, Hernia Repair, Permanent Pacemaker - Smoking History Smoking history: Former smoker Have you smoked in the past 12 months: No If you are a former smoker, when did you quit?: 1979 - Alcohol/Substance Use Hx Alcohol Use: No - Social History Usual Living Arrangement: Yes: With Spouse History of Recent Travel: No Home Medications - Allergies Allergies/Adverse Reactions: Allergies Allergy/AdvReac Type Severity Reaction Status Date / Time No Known Allergies Allergy Verified 02/24/19 10:57 - Home Medications Home Medications: Ambulatory Orders Alprazolam [Xanax] 1 mg PO QID 03/06/18 Folic Acid 1 mg PO DAILY 03/06/18 Albuterol 2.5/Ipratropium 0.5 [Duoneb -] 1 vial NEB QID PRN 03/09/18 Diltiazem Cd [Cardizem Cd -] 120 mg PO DAILY #30 cap.cd.24h 03/19/18 Apixaban [Eliquis] 5 mg PO BID 30 Days #60 tablet 04/23/18 Tamsulosin HCl [Flomax -] 0.8 mg PO DAILY@0830 30 Days #60 cap.er.24h 04/23/18 Clopidogrel Bisulfate [Plavix -] 75 mg PO DAILY tablet 08/29/18 Albuterol 0.083% Nebulizer Verna [Ventolin 0.083% Nebulizer Soln -] 1 amp NEB Q4H PRN amp 12/29/18 Atenolol [Tenormin -] 25 mg PO DAILY 30 Days #30 tablet 12/29/18 Review of Systems - Review of Systems Constitutional: reports: Loss of Appetite Eyes: reports: No Symptoms HENT: reports: Other (Poor dentition) Neck: reports: No Symptoms Cardiovascular: reports: Shortness of Breath Respiratory: reports: SOB on Exertion Gastrointestinal: reports: Other (Dark Stools) Genitourinary: reports: No Symptoms Breasts: reports: No Symptoms Reported Musculoskeletal: reports: No Symptoms Integumentary: reports: No Symptoms Neurological: reports: No Symptoms Endocrine: reports: Unexplained Weight Loss Hematology/Lymphatic: reports: No Symptoms Psychiatric: reports: Anxiety Physical Examination Vital Signs: Vital Signs Temperature 97.7 F 02/25/19 06:00 Pulse Rate 50 L 02/25/19 06:00 Respiratory Rate 18 02/25/19 06:00 Blood Pressure 130/62 02/25/19 06:00 O2 Sat by Pulse Oximetry (%) 97 02/24/19 20:06 Constitutional: Yes: Calm Eyes: Yes: Conjunctiva Clear HENT: Yes: Atraumatic, Normocephalic Neck: Yes: Supple, Trachea Midline Cardiovascular: Yes: Regular Rate and Rhythm Respiratory: Yes: Regular, CTA Bilaterally Gastrointestinal: Yes: Normal Bowel Sounds, Soft ...Rectal Exam: Yes: Deferred Renal/: Yes: WNL Breast(s): Yes: WNL Musculoskeletal: Yes: WNL Extremities: Yes: WNL Edema: No Peripheral Pulses WNL: Yes Integumentary: Yes: WNL Neurological: Yes: Alert, Oriented ...Motor Strength: WNL Psychiatric: Yes: Alert, Oriented Labs: CBC, BMP 02/25/19 07:00 02/25/19 07:00 Problem List - Problems (1) Anemia Code(s): D64.9 - ANEMIA, UNSPECIFIED Qualifiers: Anemia type: iron deficiency (2) COPD exacerbation Code(s): J44.1 - CHRONIC OBSTRUCTIVE PULMONARY DISEASE W (ACUTE) EXACERBATION (3) Symptomatic anemia Code(s): D64.9 - ANEMIA, UNSPECIFIED (4) Acute on chronic respiratory failure with hypoxia and hypercapnia Code(s): J96.21 - ACUTE AND CHRONIC RESPIRATORY FAILURE WITH HYPOXIA; J96.22 - ACUTE AND CHRONIC RESPIRATORY FAILURE WITH HYPERCAPNIA (5) Acute respiratory failure Code(s): J96.00 - ACUTE RESPIRATORY FAILURE, UNSP W HYPOXIA OR HYPERCAPNIA (6) Elevated troponin Code(s): R74.8 - ABNORMAL LEVELS OF OTHER SERUM ENZYMES (7) Liver masses Code(s): R16.0 - HEPATOMEGALY, NOT ELSEWHERE CLASSIFIED Assessment/Plan Chest xray results, AFP and Haptoglobin results pending. Seen by GI and Oncology. Liver masses noted in 09/15. Pt declined further work up at that time. Hgb increased from 5 after 2 u RBCs. Maintain hgb above 8.Monitor resp and GI status.
[2019-02-25] MEDS: ATENOLOL 50 MG TABLET (FP) PO SCH (10:05)
[2019-02-25] MEDS: PANTOPRAZOLE 40 MG TABLET (FP) PO SCH ×2 (10:06→21:42)
[2019-02-25] MEDS: FOLIC ACID 1 MG TABLET (FP) PO SCH (10:06)
[2019-02-25] MEDS: DOCUSATE SODIUM 100 MG CAPSULE (FP) PO SCH ×2 (10:06→21:42)
[2019-02-25] MEDS: POLYETHYLENE GLYCOL 3350 119 GM BTL PO SCH (10:06)
[2019-02-25] MEDS: TAMSULOSIN HCL 0.4 MG CAP PO SCH (10:06)
--- NOTE | 2019-02-25 10:53 | CON.CARD ---
Cardiology Consult (text) - Consultation Consultation Note: cc: sob hpi: 73 m hx copd, afib, htn, cad here with sob. Past 1-2 days noticed woodson. No cp rest sob palps dizzy loc pnd orthopnea le edema. Found to have severe anemia here with hgb 5.9. pmh: per hpi psh: hip surgery social: ex tob fam: nc ros: no nvd, vision changes, bacon, muscel pain, dysuria, gib, hematuria; all others nl meds: Ambulatory Orders Alprazolam [Xanax] 1 mg PO QID 03/06/18 Folic Acid 1 mg PO DAILY 03/06/18 Albuterol 2.5/Ipratropium 0.5 [Duoneb -] 1 vial NEB QID PRN 03/09/18 Diltiazem Cd [Cardizem Cd -] 120 mg PO DAILY #30 cap.cd.24h 03/19/18 Apixaban [Eliquis] 5 mg PO BID 30 Days #60 tablet 04/23/18 Tamsulosin HCl [Flomax -] 0.8 mg PO DAILY@0830 30 Days #60 cap.er.24h 04/23/18 Clopidogrel Bisulfate [Plavix -] 75 mg PO DAILY tablet 08/29/18 Albuterol 0.083% Nebulizer Verna [Ventolin 0.083% Nebulizer Soln -] 1 amp NEB Q4H PRN amp 12/29/18 Atenolol [Tenormin -] 25 mg PO DAILY 30 Days #30 tablet 12/29/18 Vital Signs Period Temp Pulse Resp BP Sys/Cleaning Pulse Ox Last 24 Hr 97.7 F-98.1 F 50-68 18-22 104-137/53-78 95-97 nad, no jvd rrr s1s2 no mrg cta bl nl eff aao3 no le e/c/c abd nt nd pos bs no jaundice diaphoresis pos dp pt Laboratory Last Values WBC 5.0 K/mm3 (4.0-10.0) 02/25/19 07:00 RBC 3.77 M/mm3 (4.00-5.60) L 02/25/19 07:00 Hgb 8.4 GM/dL (11.7-16.9) L 02/25/19 07:00 Hct 27.0 % (35.4-49) L D 02/25/19 07:00 MCV 71.7 fl (80-96) L 02/25/19 07:00 MCH 22.2 pg (25.7-33.7) L 02/25/19 07:00 MCHC 31.0 g/dl (32.0-35.9) L 02/25/19 07:00 RDW 26.3 % (11.9-15.9) H 02/25/19 07:00 Plt Count 342 K/MM3 (134-434) 02/25/19 07:00 MPV 7.9 fl (7.5-11.1) 02/25/19 07:00 Absolute Neuts (auto) 5.7 K/mm3 (1.5-8.0) 02/24/19 11:12 Neutrophils % 73.7 % (42.8-82.8) 02/24/19 11:12 Lymphocytes % 7.9 % (8-40) L D 02/24/19 11:12 Monocytes % 10.7 % (3.8-10.2) H 02/24/19 11:12 Eosinophils % 5.1 % (0-4.5) H D 02/24/19 11:12 Basophils % 2.6 % (0-2.0) H D 02/24/19 11:12 Nucleated RBC % 0 % (0-0) 02/24/19 11:12 Hypochromia 2+ 02/24/19 11:12 Platelet Estimate Normal 02/24/19 11:12 Polychromasia 0 02/24/19 11:12 Poikilocytosis 1+ 02/24/19 11:12 Anisocytosis 3+ 02/24/19 11:12 Microcytosis 3+ 02/24/19 11:12 Macrocytosis 0 02/24/19 11:12 Stomatocytes 1+ 02/24/19 11:12 Schistocytes 1+ 02/24/19 11:12 Retic Count 0.63 % (0.5-1.5) D 02/24/19 11:48 PT with INR 16.50 SEC (9.7-13.0) H 02/25/19 07:00 INR 1.39 (0.83-1.09) H 02/25/19 07:00 PTT (Actin FS) 39.1 SECONDS (25.2-36.5) H 02/24/19 11:12 VBG pH 7.31 (7.31-7.41) 02/24/19 12:30 POC VBG pCO2 66.3 mmHg (41-51) H 02/24/19 12:30 POC VBG pO2 36.2 mmHg (30-40) 02/24/19 12:30 VBG HCO3 32.1 mmol/L (23-29) H 02/24/19 12:30 VBG O2 Sat ([place]na) 55.3 % (70-80) L 02/24/19 12:30 VBG Base Excess 5.7 meq/l (-2-2) H 02/24/19 12:30 Sodium 139 mmol/L (136-145) 02/25/19 07:00 Potassium 4.0 mmol/L (3.5-5.1) 02/25/19 07:00 Chloride 100 mmol/L (98-107) 02/25/19 07:00 Carbon Dioxide 35 mmol/L (21-32) H 02/25/19 07:00 Anion Gap 4 MMOL/L (8-16) L 02/25/19 07:00 BUN 8.4 mg/dL (7-18) 02/25/19 07:00 Creatinine 0.6 mg/dL (0.55-1.3) 02/25/19 07:00 Est GFR (CKD-EPI)AfAm 113.99 02/25/19 07:00 Est GFR (CKD-EPI)NonAf 98.35 02/25/19 07:00 Random Glucose 138 mg/dL (74-106) H 02/25/19 07:00 Calcium 8.6 mg/dL (8.5-10.1) 02/25/19 07:00 Magnesium 2.3 mg/dL (1.8-2.4) 02/24/19 11:12 Ferritin 9.0 ng/ml (8-388) 02/24/19 11:48 Total Bilirubin 1.2 mg/dL (0.2-1) H 02/25/19 07:00 AST 8 U/L (15-37) L 02/25/19 07:00 ALT 9 U/L (13-61) L 02/25/19 07:00 Alkaline Phosphatase 74 U/L (45-117) 02/25/19 07:00 LD Total 152 U/L (87-246) 02/24/19 11:48 Creatine Kinase 46 U/L (26-308) 02/24/19 11:12 Troponin I < 0.02 ng/ml (0.00-0.05) 02/24/19 11:12 Total Protein 6.3 g/dl (6.4-8.2) L 02/25/19 07:00 Albumin 3.0 g/dl (3.4-5.0) L 02/25/19 07:00 TSH 0.32 uIU/ml (0.358-3.74) L D 02/25/19 07:00 Stool Occult Blood Negative (NEGATIVE) 02/24/19 12:35 Blood Type O POSITIVE 02/24/19 12:54 Antibody Screen Negative 02/24/19 11:48 Crossmatch See Detail 02/24/19 11:48 tele: sr , occ pvcs ecg: sr,nl intervals, no ischemic changes cxr: clear lungs echo 02/2018: nl lv/rv, mild tr, mod phtn echo 07/2018 nl LV/RV fn, mild MR, mod TR, PASP at least 41 mmHg a/p: 73 m hx copd, afib, htn, cad here with sob. afib: -in sr now -cont dilt, atenolol for rate control -eliquis on hold for anemia htn: -stable, cont home meds cad: -unclear details, pt [facility] and was told he had narrowing in artery but that due to its location it could not be fixed. He says he was started on plavix and told to continue. Seems that cad is no longer and indication for him to take plavix now that he is on eliquis, especially given his anemia now. Thus will dc plavix. sob, copd, anemia: -no signs chf or acs -sxs likely 2/2 anemia, possibly copd component as well -manage per primary, pulm -GI eval for anemia -no cardiac contraindications to egd/foc.
--- NOTE | 2019-02-25 12:50 | PN ---
Progress Note (short form) - Note Progress Note: PULMONARY Denies shortness of breath, cough or wheezing. Vital Signs Period Temp Pulse Resp BP Sys/Cleaning Pulse Ox Last 24 Hr 97.7 F-98.1 F 50-67 18-22 104-137/53-78 95-97 Gen: NAD at rest Heart: RRR Lung: scattered rhonchi Abd: soft, nontender Ext: no edema CBC, BMP 02/25/19 07:00 02/25/19 07:00 Active Medications Albuterol Sulfate (Ventolin 0.083% Nebulizer Soln -) 1 amp NEB Q4H PRN PRN Reason: SHORT OF BREATH/WHEEZING Albuterol/Ipratropium (Duoneb -) 1 amp NEB RQID [facility] Last Admin: 02/25/19 11:59 Dose: Not Given Alprazolam (Xanax -) 1 mg PO Q6HPO [facility] Last Admin: 02/25/19 12:33 Dose: 1 mg Atenolol (Tenormin -) 25 mg PO DAILY [facility] Last Admin: 02/25/19 10:05 Dose: 25 mg Diltiazem HCl (Cardizem Cd -) 120 mg PO DAILY [facility] Last Admin: 02/25/19 10:06 Dose: 120 mg Docusate Sodium (Colace -) 100 mg PO BID [facility] Last Admin: 02/25/19 10:06 Dose: 100 mg Folic Acid (Folic Acid -) 1 mg PO DAILY [facility] Last Admin: 02/25/19 10:06 Dose: 1 mg Methylprednisolone Sodium Succinate (Solu-Medrol -) 80 mg IVPUSH Q6H-IV [facility] Last Admin: 02/25/19 10:06 Dose: 80 mg Pantoprazole Sodium (Protonix -) 40 mg PO BID [facility] Last Admin: 02/25/19 10:06 Dose: 40 mg Polyethylene Glycol (Miralax (For Daily Use) -) 17 gm PO DAILY [facility] Last Admin: 02/25/19 10:06 Dose: 17 units Tamsulosin HCl (Flomax -) 0.8 mg PO DAILY@0830 [facility] Last Admin: 02/25/19 10:06 Dose: 0.8 mg A/P Symptomatic Anemia r/o GI Bleed COPD Chronic Hypoxic and Hypercapneic Respiratory Failure HTN Atrial Fibrillation Liver Masses - monitor H/H - transfuse as needed - protonix - will decrease medrol - inhaled bronchodilators - o2 to keep Spo2 >90% - no pulmonary contraindications for endoscopy
--- NOTE | 2019-02-25 15:43 | PN.GI ---
GI Progress Note Subjective: No acute events Transfused No abdominal complaints - Objective Vital Signs: Vital Signs Temperature 97.7 F 02/25/19 14:00 Pulse Rate 68 02/25/19 14:00 Respiratory Rate 18 02/25/19 14:00 Blood Pressure 133/58 L 02/25/19 14:00 O2 Sat by Pulse Oximetry (%) 95 02/25/19 10:00 Constitutional: Calm Eyes: No: Sclera Icterus Cardiovascular: Yes: Regular Rate and Rhythm Respiratory: Yes: Diminished (At bases b/l) Gastrointestinal Inspection: No: Distention ...Auscultate: Yes: Normoactive Bowel Sounds ...Palpate: Yes: Soft. No: Tenderness Edema: No (No LE edema) Neurological: Yes: Alert Labs: CBC, BMP 02/25/19 07:00 02/25/19 07:00 INR, PTT INR 1.39 (0.83-1.09) H 02/25/19 07:00 Hepatic Panel Total Bilirubin 1.2 mg/dL (0.2-1) H 02/25/19 07:00 AST 8 U/L (15-37) L 02/25/19 07:00 ALT 9 U/L (13-61) L 02/25/19 07:00 Alkaline Phosphatase 74 U/L (45-117) 02/25/19 07:00 Albumin 3.0 g/dl (3.4-5.0) L 02/25/19 07:00 AFP/CEA/CA 19-9 all normal 12/13 Problem List - Problems (1) Anemia Assessment/Plan: Iron deficiency component Discussed EGD/Colonoscopy with Mr. Figueroa to evaluate for sources of blood loss such as PUD, bleeding blood vessels, polyps or cancers of the GI tract. Discussed potential risks of the procedures like but not limited to bleeding, perforation requiring surgery to repair, infection, sedation medication effects all of which could be potentially life threatening. He was uncertain if he wants to undertake potential risks and have procedures performed. This was explained to his . She would be talking with him this evening. The question is what are the goals of care. ? repeat imaging to see if there has been progression of his suspected metastatic disease since 12/13 Onc following Await decision regarding procedures. ASA/Plavix have been held Dr. Bunch resumes care 02/26 Code(s): D64.9 - ANEMIA, UNSPECIFIED Qualifiers: Anemia type: iron deficiency
[2019-02-25 21:22] LABS: IRON SERUM 14 ug/dL (50-175); TOTAL IRON BINDING CAPACITY 421 ug/dL (250-450)
[2019-02-26] MEDS: methylPREDNISolone NA SUCC 40 MG/1 ML VIAL IVPUSH SCH ×4 (03:55→21:09)
[2019-02-26] MEDS: ALPRAZolam 0.25 MG TABLET PO SCH ×4 (05:15→23:27)
[2019-02-26] MEDS: ALBUTEROL SO4 2.5/IPRATROPIUM 0.5 INH SOL 3 ML VIAL.NEB. NEB SCH ×4 (07:25→20:25)
[2019-02-26 08:01] LABS: BLOOD UREA NITROGEN 12.2 mg/dL (7-18); CALCIUM 8.4 mg/dL (8.5-10.1); CREATININE 0.5 mg/dL (0.55-1.3); POTASSIUM 3.8 mmol/L (3.5-5.1)
[2019-02-26 08:31] LABS: HEMATOCRIT 24.9 % (35.4-49); HEMOGLOBIN 7.7 GM/dL (11.7-16.9); MCH 22.2 pg (25.7-33.7); MEAN CELL VOLUME 71.6 fl (80-96); PLATELET COUNT 333 K/MM3 (134-434); RBC 3.47 M/mm3 (4.00-5.60); RDW 27.5 % (11.9-15.9); WHITE BLOOD COUNT 10.5 K/mm3 (4.0-10.0)
--- NOTE | 2019-02-26 08:37 | PN ---
Progress Note, Physician Chief Complaint: sitting in chair Denies CP or SOB TELE: NSR, rare PVCs - Current Medication List Current Medications: Active Medications Albuterol Sulfate (Ventolin 0.083% Nebulizer Soln -) 1 amp NEB Q4H PRN PRN Reason: SHORT OF BREATH/WHEEZING Albuterol/Ipratropium (Duoneb -) 1 amp NEB RQID [facility] Last Admin: 02/26/19 07:25 Dose: 1 amp Alprazolam (Xanax -) 1 mg PO Q6HPO [facility] Last Admin: 02/26/19 05:15 Dose: 1 mg Atenolol (Tenormin -) 25 mg PO DAILY [facility] Last Admin: 02/25/19 10:05 Dose: 25 mg Diltiazem HCl (Cardizem Cd -) 120 mg PO DAILY [facility] Last Admin: 02/25/19 10:06 Dose: 120 mg Docusate Sodium (Colace -) 100 mg PO BID [facility] Last Admin: 02/25/19 21:42 Dose: 100 mg Folic Acid (Folic Acid -) 1 mg PO DAILY [facility] Last Admin: 02/25/19 10:06 Dose: 1 mg Methylprednisolone Sodium Succinate (Solu-Medrol -) 80 mg IVPUSH Q6H-IV [facility] Last Admin: 02/26/19 03:55 Dose: 80 mg Pantoprazole Sodium (Protonix -) 40 mg PO BID [facility] Last Admin: 02/25/19 21:42 Dose: 40 mg Polyethylene Glycol (Miralax (For Daily Use) -) 17 gm PO DAILY [facility] Last Admin: 02/25/19 10:06 Dose: 17 units Tamsulosin HCl (Flomax -) 0.8 mg PO DAILY@0830 [facility] Last Admin: 02/25/19 10:06 Dose: 0.8 mg - Objective Vital Signs: Vital Signs Temperature 97.6 F 02/26/19 06:00 Pulse Rate 55 L 02/26/19 06:00 Respiratory Rate 18 02/26/19 06:00 Blood Pressure 124/48 L 02/26/19 06:00 O2 Sat by Pulse Oximetry (%) 100 02/25/19 20:30 Constitutional: Yes: No Distress, Calm Cardiovascular: Yes: Regular Rate and Rhythm Respiratory: Yes: Other (decreased breath sounds b/l, no active wheezing.) Gastrointestinal: Yes: Soft Edema: Yes Edema: LLE: 1+ (ankle), RLE: 1+ (ankle) Neurological: Yes: Alert, Oriented Labs: CBC, BMP 02/26/19 07:08 INR, PTT INR 1.39 (0.83-1.09) H 02/25/19 07:00 - ....Imaging EKG: Image Reviewed Assessment/Plan echo 07/2018 nl LV/RV fn, mild MR, mod TR, PASP at least 41 mmHg A/P: 73 m hx copd, afib, htn, cad here with sob. AF: -in sr now -cont dilt, atenolol for rate control -eliquis on hold for anemia HTN: -stable, cont home meds CAD: -unclear details, pt said he had cath at [facility] about 10 yrs ago and was told he had narrowing in artery but that due to its location it could not be fixed. He says he was started on plavix and told to continue. Seems that cad is no longer and indication for him to take plavix now that he is on eliquis, especially given his anemia now. Plavix was d/c'd SOB, COPD, Anemia: -no signs chf or acs -sxs likely 2/2 anemia, possibly copd component as well -manage per primary, pulm -GI eval for anemia -no cardiac contraindications to egd/colonoscopy
[2019-02-26] MEDS: TAMSULOSIN HCL 0.4 MG CAP PO SCH (09:42)
[2019-02-26] MEDS: DOCUSATE SODIUM 100 MG CAPSULE (FP) PO SCH (09:43)
[2019-02-26] MEDS: FOLIC ACID 1 MG TABLET (FP) PO SCH (09:43)
[2019-02-26] MEDS: PANTOPRAZOLE 40 MG TABLET (FP) PO SCH ×2 (09:43→21:09)
[2019-02-26] MEDS: POLYETHYLENE GLYCOL 3350 119 GM BTL PO SCH ×2 (09:51→21:09)
--- NOTE | 2019-02-26 09:59 | PN ---
Progress Note (short form) - Note Progress Note: 73 y/o male found sitting in chaair with O2 in place via nasal cannula. O2 sat 98. Aware of person, location (hosp) and date. However, states that he is in [facility]. States that breathing is okay. Denies pain and discomfort. Vital Signs Period Temp Pulse Resp BP Sys/Cleaning Pulse Ox Last 24 Hr 97.5 F-97.9 F 50-68 18-20 124-137/48-78 95-100 CBC, BMP 02/26/19 07:08 02/26/19 07:08 HEENT- NL Neck-Supple Lungs- CTAB Heart- S1/S2 Abd- soft, nt Ext- No LE edema Active Medications Albuterol Sulfate (Ventolin 0.083% Nebulizer Soln -) 1 amp NEB Q4H PRN PRN Reason: SHORT OF BREATH/WHEEZING Albuterol/Ipratropium (Duoneb -) 1 amp NEB RQID [facility] Last Admin: 02/26/19 07:25 Dose: 1 amp Alprazolam (Xanax -) 1 mg PO Q6HPO [facility] Last Admin: 02/26/19 05:15 Dose: 1 mg Atenolol (Tenormin -) 25 mg PO DAILY [facility] Last Admin: 02/25/19 10:05 Dose: 25 mg Diltiazem HCl (Cardizem Cd -) 120 mg PO DAILY [facility] Last Admin: 02/25/19 10:06 Dose: 120 mg Docusate Sodium (Colace -) 100 mg PO BID [facility] Last Admin: 02/26/19 09:43 Dose: 100 mg Folic Acid (Folic Acid -) 1 mg PO DAILY [facility] Last Admin: 02/26/19 09:43 Dose: 1 mg Methylprednisolone Sodium Succinate (Solu-Medrol -) 80 mg IVPUSH Q6H-IV [facility] Last Admin: 02/26/19 09:43 Dose: 80 mg Pantoprazole Sodium (Protonix -) 40 mg PO BID [facility] Last Admin: 02/26/19 09:43 Dose: 40 mg Polyethylene Glycol (Miralax (For Daily Use) -) 17 gm PO DAILY [facility] Last Admin: 02/25/19 10:06 Dose: 17 units Tamsulosin HCl (Flomax -) 0.8 mg PO DAILY@0830 [facility] Last Admin: 02/26/19 09:42 Dose: 0.8 mg #Anemia Appreciate GI consult Hgb 7.7 Trend hgb/hct Eliquis dc'd due to bleeding risk #COPD Solumedrol Cont O2- maintain O2 sat >90 #Acute on chronic resp failure Appreciate pulmonary consult Duoneb #Elevated troponin levels Appreciate Cardiology consult Cont BB for rate control Plavix dc'd #BPH Tamsulosin #Liver masses Pt discussed GI procedures with Agreeable to Endoscopy and Colonoscopy at this time Problem List - Problems (1) Anemia Code(s): D64.9 - ANEMIA, UNSPECIFIED Qualifiers: Anemia type: iron deficiency (2) COPD exacerbation Code(s): J44.1 - CHRONIC OBSTRUCTIVE PULMONARY DISEASE W (ACUTE) EXACERBATION (3) Symptomatic anemia Code(s): D64.9 - ANEMIA, UNSPECIFIED (4) Acute on chronic respiratory failure with hypoxia and hypercapnia Code(s): J96.21 - ACUTE AND CHRONIC RESPIRATORY FAILURE WITH HYPOXIA; J96.22 - ACUTE AND CHRONIC RESPIRATORY FAILURE WITH HYPERCAPNIA (5) Acute respiratory failure Code(s): J96.00 - ACUTE RESPIRATORY FAILURE, UNSP W HYPOXIA OR HYPERCAPNIA (6) Elevated troponin Code(s): R74.8 - ABNORMAL LEVELS OF OTHER SERUM ENZYMES (7) Liver masses Code(s): R16.0 - HEPATOMEGALY, NOT ELSEWHERE CLASSIFIED Problem List - Problems (1) Anemia Code(s): D64.9 - ANEMIA, UNSPECIFIED Qualifiers: Anemia type: iron deficiency (2) COPD exacerbation Code(s): J44.1 - CHRONIC OBSTRUCTIVE PULMONARY DISEASE W (ACUTE) EXACERBATION (3) Symptomatic anemia Code(s): D64.9 - ANEMIA, UNSPECIFIED (4) Acute on chronic respiratory failure with hypoxia and hypercapnia Code(s): J96.21 - ACUTE AND CHRONIC RESPIRATORY FAILURE WITH HYPOXIA; J96.22 - ACUTE AND CHRONIC RESPIRATORY FAILURE WITH HYPERCAPNIA (5) Acute respiratory failure Code(s): J96.00 - ACUTE RESPIRATORY FAILURE, UNSP W HYPOXIA OR HYPERCAPNIA (6) Elevated troponin Code(s): R74.8 - ABNORMAL LEVELS OF OTHER SERUM ENZYMES (7) Liver masses Code(s): R16.0 - HEPATOMEGALY, NOT ELSEWHERE CLASSIFIED
[2019-02-26 11:17] VITALS: BMI 19.9
[2019-02-26] MEDS: ATENOLOL 50 MG TABLET (FP) PO SCH (11:25)
[2019-02-26 11:41] LABS: PLATELET ESTIMATE ADEQUATE
--- NOTE | 2019-02-26 13:27 | PN ---
Progress Note (short form) - Note Progress Note: Resting in NAD. Denies shortness of breath, cough or wheezing. No acute events overnight. Intake & Output 02/23/19 02/24/19 02/25/19 02/26/19 23:59 23:59 23:59 23:59 Intake Total 730 780 Output Total 2800 750 Balance 730 -2020 -750 Weight 147 lb 11.355 oz 147 lb Last Vital Signs Temp Pulse Resp BP Pulse Ox 98.1 F 63 20 120/53 L 98 02/26/19 10:00 02/26/19 10:00 02/26/19 10:00 02/26/19 10:00 02/26/19 09:00 Active Medications Albuterol Sulfate (Ventolin 0.083% Nebulizer Soln -) 1 amp NEB Q4H PRN PRN Reason: SHORT OF BREATH/WHEEZING Albuterol/Ipratropium (Duoneb -) 1 amp NEB RQID [facility] Last Admin: 02/26/19 11:25 Dose: 1 amp Alprazolam (Xanax -) 1 mg PO Q6HPO [facility] Last Admin: 02/26/19 11:25 Dose: 1 mg Atenolol (Tenormin -) 25 mg PO DAILY [facility] Last Admin: 02/26/19 11:25 Dose: 25 mg Diltiazem HCl (Cardizem Cd -) 120 mg PO DAILY [facility] Last Admin: 02/26/19 11:25 Dose: 120 mg Docusate Sodium (Colace -) 100 mg PO BID [facility] Last Admin: 02/26/19 09:43 Dose: 100 mg Folic Acid (Folic Acid -) 1 mg PO DAILY [facility] Last Admin: 02/26/19 09:43 Dose: 1 mg Methylprednisolone Sodium Succinate (Solu-Medrol -) 80 mg IVPUSH Q6H-IV [facility] Last Admin: 02/26/19 09:43 Dose: 80 mg Pantoprazole Sodium (Protonix -) 40 mg PO BID [facility] Last Admin: 02/26/19 09:43 Dose: 40 mg Polyethylene Glycol (Miralax (For Daily Use) -) 17 gm PO DAILY [facility] Last Admin: 02/26/19 09:51 Dose: 17 gm Tamsulosin HCl (Flomax -) 0.8 mg PO DAILY@0830 [facility] Last Admin: 02/26/19 09:42 Dose: 0.8 mg Gen: NAD at rest Heart: RRR Lung: scattered rhonchi Abd: soft, nontender Ext: no edema Laboratory Results - last 24 hr 02/24/19 02/25/19 02/25/19 11:12 07:00 07:00 WBC RBC Hgb Hct MCV MCH MCHC RDW Plt Count MPV Total Counted Neutrophils % Neutrophils % (Manual) Lymphocytes % Lymphocytes % (Manual) Monocytes % (Manual) Basophils % (Manual) Nucleated RBC % Platelet Estimate Haptoglobin 196 Sodium 139 Potassium 4.0 Chloride 100 Carbon Dioxide 35 H Anion Gap 4 L BUN 8.4 Creatinine 0.6 Est GFR (CKD-EPI)AfAm 113.99 Est GFR (CKD-EPI)NonAf 98.35 Random Glucose 138 H Calcium 8.6 Iron 71 TIBC 386 Iron Saturation 18 Unsaturated IBC 315 H Total Bilirubin 1.2 H AST 8 L ALT 9 L Alkaline Phosphatase 74 Total Protein 6.3 L Albumin 3.0 L Tumor Marker AFP 0.8 TSH 0.32 L D 02/25/19 02/26/19 02/26/19 20:00 07:08 07:08 WBC 10.5 H RBC 3.47 L Hgb 7.7 L Hct 24.9 L MCV 71.6 L MCH 22.2 L MCHC 31.0 L RDW 27.5 H Plt Count 333 MPV 8.0 Total Counted 100 Neutrophils % No Result Required. Neutrophils % (Manual) 91.5 H Lymphocytes % No Result Required. Lymphocytes % (Manual) 5.2 L D Monocytes % (Manual) 3 L Basophils % (Manual) 0.1 D Nucleated RBC % 0 Platelet Estimate Adequate Haptoglobin Sodium 141 Potassium 3.8 Chloride 102 Carbon Dioxide 35 H Anion Gap 3 L BUN 12.2 Creatinine 0.5 L Est GFR (CKD-EPI)AfAm 122.86 Est GFR (CKD-EPI)NonAf 106.01 Random Glucose 129 H Calcium 8.4 L Iron 14 L TIBC 421 Iron Saturation 3 L Unsaturated IBC 407 H Total Bilirubin AST ALT Alkaline Phosphatase Total Protein Albumin Tumor Marker AFP TSH A/P Symptomatic Anemia r/o GI Bleed COPD Chronic Hypoxic and Hypercapneic Respiratory Failure HTN Atrial Fibrillation Liver Masses - monitor H/H - transfuse as needed - protonix - will decrease medrol - inhaled bronchodilators - o2 to keep Spo2 >90% - no pulmonary contraindications if endoscopic evaluation is anticipated Dr Turner
--- NOTE | 2019-02-26 14:55 | PN.GI ---
GI Progress Note Subjective: Gi NOte: I discussed EGD and colonoscopy again with Sidney. He told me that he will only consent for the EGD. I explained that statistically he is more likely to have colon cancer than gastric cancer as the cause of his weight loss, anorexia, anemia and liver lesions. I told him that so as to minimize his anesthesia exposure and to minimize the duration of anticoagulation interruption that both procedures should be done under a single anesthesia and that I would try to do both of then on 03/02. I again discussed the potential for such complications as perforation and hemorrhage. After I answered all of his questions he told me that his needs to participate in this decision. I called Mrs. Jason and discussed all of these issues with her. He wants to defer until he can speak with her. She is coming in to convince him to sign. I left my business card. - Objective Vital Signs: Vital Signs Temperature 97.5 F L 02/26/19 13:42 Pulse Rate 78 02/26/19 13:42 Respiratory Rate 18 02/26/19 13:42 Blood Pressure 128/51 L 02/26/19 13:42 O2 Sat by Pulse Oximetry (%) 98 02/26/19 09:00 Laboratory Tests 02/24/19 02/24/19 02/25/19 11:12 15:00 07:00 Hgb 5.9 L* 6.4 L* Tumor Marker AFP 0.8 02/25/19 02/26/19 07:00 07:08 Hgb 8.4 L 7.7 L Tumor Marker AFP Constitutional: Thin Cardiovascular: Yes: Pulse Irregular Respiratory: Yes: Hyperresonant ...Auscultate: Yes: Hypoactive Bowel Sounds ...Palpate: Yes: Soft, Other (nontender) Labs: CBC, BMP 02/26/19 07:08 02/26/19 07:08 INR, PTT INR 1.39 (0.83-1.09) H 02/25/19 07:00 - ....Imaging Cat Scan: Report Reviewed ( Final Report CT ABDOMEN & PELVIS CT WITH CONTR Show Printer-Friendly Version Patient Name: Sidney Jason : Jul-1945 ID: [id number] Study Date: 24-Dec-2018 15:45 Julio C Pavilirene Name: SIDNEY JASON DEPARTMENT OF RADIOLOGY Phys: Ruth Foster RESIDENT : 1945 Age: 73 Sex: Lucio [facility] Acct: [id number] Loc: [id number] [facility] Exam Date: 12/24/18 Status: [place] [address] Unit Number: [id number] EXAM#: TYPE/EXAM: RESULT: CT/ABDOMEN PELVIS CT WITH CONTR HISTORY PROVIDED: Rule out liver mass. Sequential axial images were obtained from the domes of the diaphragms through the symphysis pubis following the administration of both oral and intravenous contrast material. Delayed images were also obtained. Evaluation of the lung bases demonstrates bibasilar consolidation/atelectasis. Trace pleural effusions are also present. COPD changes are noted diffusely. The liver is normal in size with multiple hypodense masses scattered throughout the liver that are strongly suspicious for metastatic disease. The largest mass is a central right hepatic lesion measuring approximately 4.7 x 4.6 x 4.4 cm. The possibility of multifocal hepatocellular carcinoma cannot be excluded. The spleen, pancreas, adrenal glands and kidneys demonstrate no significant abnormalities. There is no gross evidence of a gastric mass. Small gallstones are identified within the gallbladder. There is no evidence of intra-abdominal or retroperitoneal lymphadenopathy or fluid collections. Examination of the pelvis is limited due to extensive artifact from the patient's total right hip replacement. There is no evidence of pelvic masses, fluid collections or lymphadenopathy. The urinary bladder is markedly distended. The prostate gland is enlarged measuring 5.4 x 4.5 x 3.9 cm. Evaluation of the colon is somewhat limited due to a large amount of retained fecal material. There is no gross evidence of a colonic mass. There is no evidence of bony metastases or acute abnormalities. IMPRESSION: 1. Bibasilar consolidation/ atelectasis, trace pleural effusions and moderate COPD. 2. Multiple hepatic masses suspicious for metastatic disease or possibly primary hepatocellular carcinoma. 3. Cholelithiasis. 4. Prostatic enlargement. 5. Extensive fecal retention with no evidence of acute pathology within the abdomen or pelvis. Please see above discussion. Reported By: Rayo Nieves MD 12/25/18812 Technologist: Aakash Degroot Transcribed Date/Time: 05/ 31/19 0813 Agency Manager: Rayo Nieves Printed Date/Time: By: Signed by: Rayo Nieves Signed on: 25-Dec-2018 08:14) Assessment/Plan Impression: - I suspect that Sidney has colon cancer metastatic to his liver but cannot exclude a gastric, pancreatic or pulmonary source among other possibilities. I have informed him and his of the serious nature of these findings and advised EGD and colonoscopy under a single anesthesia. I have again informed him and his of the potential risks of the procedures and need for a bowel prep. The told me that she will come in and convince Sidney to sign consent for both procedures. They are already aware of the risks of a CVA and other thromboses associated with stopping his anticoagulants. Plan: -- Hold anticoagulants -- Miralax TID -- Golytely prep on 03/01 for 03/[address] Barros will be covering this weekend Problem List - Problems (1) Weight loss Code(s): R63.4 - ABNORMAL WEIGHT LOSS (2) COPD exacerbation Code(s): J44.1 - CHRONIC OBSTRUCTIVE PULMONARY DISEASE W (ACUTE) EXACERBATION (3) Symptomatic anemia Code(s): D64.9 - ANEMIA, UNSPECIFIED (4) Liver masses Code(s): R16.0 - HEPATOMEGALY, NOT ELSEWHERE CLASSIFIED (5) Rapid atrial fibrillation Code(s): I48.91 - UNSPECIFIED ATRIAL FIBRILLATION
[2019-02-26] MEDS ORDERED: IRON SUCROSE INJECTION 300 MG in SODIUM CHLORIDE 235 ML IVPB ONE (15:26)
[2019-02-27] MEDS: ALPRAZolam 0.25 MG TABLET PO SCH ×5 (00:43→23:09)
[2019-02-27] MEDS: methylPREDNISolone NA SUCC 40 MG/1 ML VIAL IVPUSH SCH ×3 (02:23→17:33)
[2019-02-27] MEDS: POLYETHYLENE GLYCOL 3350 119 GM BTL PO SCH ×4 (05:15→23:09)
[2019-02-27] MEDS: ALBUTEROL SO4 2.5/IPRATROPIUM 0.5 INH SOL 3 ML VIAL.NEB. NEB SCH ×4 (07:20→20:47)
[2019-02-27 07:39] LABS: HEMATOCRIT 26.8 % (35.4-49); HEMOGLOBIN 8.1 GM/dL (11.7-16.9); LYMPH % 1.9 % (8-40); MCH 21.9 pg (25.7-33.7); MCHC 30.2 g/dl (32.0-35.9); MEAN CELL VOLUME 72.4 fl (80-96); MEAN PLT VOLUME 7.9 fl (7.5-11.1); MONO % 3.1 % (3.8-10.2); PLATELET COUNT 360 K/MM3 (134-434); RBC 3.71 M/mm3 (4.00-5.60); RDW 27.3 % (11.9-15.9); WHITE BLOOD COUNT 12.8 K/mm3 (4.0-10.0)
[2019-02-27 08:09] LABS: BLOOD UREA NITROGEN 12.7 mg/dL (7-18); CALCIUM 8.5 mg/dL (8.5-10.1); CREATININE 0.6 mg/dL (0.55-1.3); POTASSIUM 3.8 mmol/L (3.5-5.1)
--- NOTE | 2019-02-27 09:29 | PN ---
Progress Note, Physician History of Present Illness: No CV complaints TEle: NSR 70s - Current Medication List Current Medications: Active Medications Albuterol Sulfate (Ventolin 0.083% Nebulizer Soln -) 1 amp NEB Q4H PRN PRN Reason: SHORT OF BREATH/WHEEZING Albuterol/Ipratropium (Duoneb -) 1 amp NEB RQID [facility] Last Admin: 02/27/19 07:20 Dose: 1 amp Alprazolam (Xanax -) 1 mg PO Q6HPO [facility] Last Admin: 02/27/19 05:15 Dose: 1 mg Atenolol (Tenormin -) 25 mg PO DAILY [facility] Last Admin: 02/26/19 11:25 Dose: 25 mg Bisacodyl (Dulcolax -) 20 mg PO ONCE ONE Stop: 03/01/19 18:01 Diltiazem HCl (Cardizem Cd -) 120 mg PO DAILY [facility] Last Admin: 02/26/19 11:25 Dose: 120 mg Folic Acid (Folic Acid -) 1 mg PO DAILY [facility] Last Admin: 02/26/19 09:43 Dose: 1 mg Methylprednisolone Sodium Succinate (Solu-Medrol -) 80 mg IVPUSH Q6H-IV [facility] Last Admin: 02/27/19 02:23 Dose: 80 mg Pantoprazole Sodium (Protonix -) 40 mg PO BID [facility] Last Admin: 02/26/19 21:09 Dose: 40 mg Phytonadione (Aqua Mephyton Injection -) 10 mg IVPB ONCE ONE Stop: 02/27/19 09:01 Polyethylene Glycol (Miralax (For Daily Use) -) 17 gm PO TID [facility] Last Admin: 02/27/19 05:15 Dose: 17 gm Polyethylene Glycol/Electrolytes (Golytely Solution -) 4,000 ml PO ONCE ONE Stop: 03/01/19 09:01 Tamsulosin HCl (Flomax -) 0.8 mg PO DAILY@0830 [facility] Last Admin: 02/26/19 09:42 Dose: 0.8 mg - Objective Vital Signs: Vital Signs Temperature 97.7 F 02/27/19 05:52 Pulse Rate 52 L 02/27/19 05:52 Respiratory Rate 20 02/27/19 05:52 Blood Pressure 135/50 L 02/27/19 05:52 O2 Sat by Pulse Oximetry (%) 99 02/26/19 21:00 Constitutional: Yes: No Distress Eyes: Yes: WNL HENT: Yes: WNL Neck: Yes: Supple Cardiovascular: Yes: Regular Rate and Rhythm Respiratory: Yes: CTA Bilaterally Labs: CBC, BMP 02/27/19 06:10 02/27/19 06:10 INR, PTT INR 1.39 (0.83-1.09) H 02/25/19 07:00 Assessment/Plan A/P: 73 m hx copd, afib, htn, cad here with sob. AF: -in nsr now -cont dilt, atenolol for rate control -eliquis on hold for anemia HTN: -stable, cont home meds CAD: - Plavix was d/c'd, on DOAC SOB, COPD, Anemia: -no signs chf or acs -sxs likely 2/2 anemia, possibly copd component as well -manage per primary, pulm -GI eval for anemia -no cardiac contraindications to egd/colonoscopy
[2019-02-27] MEDS: PANTOPRAZOLE 40 MG TABLET (FP) PO SCH ×2 (09:34→23:09)
[2019-02-27] MEDS: TAMSULOSIN HCL 0.4 MG CAP PO SCH (09:34)
[2019-02-27] MEDS: ATENOLOL 50 MG TABLET (FP) PO SCH (09:35)
[2019-02-27] MEDS: FOLIC ACID 1 MG TABLET (FP) PO SCH (09:35)
[2019-02-27 12:05] LABS: ANISOCYTOSIS 1+; MACROCYTOSIS 0; PLATELET ESTIMATE NORMAL
--- NOTE | 2019-02-27 13:57 | PN ---
Progress Note (short form) - Note Progress Note: PULMONARY Denies shortness of breath, cough or wheezing. Vital Signs Period Temp Pulse Resp BP Sys/Cleaning Pulse Ox Last 24 Hr 97.5 F-98.3 F 52-72 18-20 122-135/47-54 97-99 Gen: NAD at rest Heart: RRR Lung: scattered rhonchi Abd: soft, nontender Ext: no edema CBC, BMP 02/27/19 06:10 02/27/19 06:10 Active Medications Albuterol Sulfate (Ventolin 0.083% Nebulizer Soln -) 1 amp NEB Q4H PRN PRN Reason: SHORT OF BREATH/WHEEZING Albuterol/Ipratropium (Duoneb -) 1 amp NEB RQID [facility] Last Admin: 02/27/19 11:20 Dose: 1 amp Alprazolam (Xanax -) 1 mg PO Q6HPO [facility] Last Admin: 02/27/19 12:27 Dose: 1 mg Atenolol (Tenormin -) 25 mg PO DAILY [facility] Last Admin: 02/27/19 09:35 Dose: 25 mg Bisacodyl (Dulcolax -) 20 mg PO ONCE ONE Stop: 03/01/19 18:01 Diltiazem HCl (Cardizem Cd -) 120 mg PO DAILY [facility] Last Admin: 02/27/19 09:35 Dose: 120 mg Folic Acid (Folic Acid -) 1 mg PO DAILY [facility] Last Admin: 02/27/19 09:35 Dose: 1 mg Methylprednisolone Sodium Succinate (Solu-Medrol -) 80 mg IVPUSH Q6H-IV [facility] Last Admin: 02/27/19 09:34 Dose: 80 mg Pantoprazole Sodium (Protonix -) 40 mg PO BID [facility] Last Admin: 02/27/19 09:34 Dose: 40 mg Phytonadione (Aqua Mephyton Injection -) 10 mg IVPB ONCE ONE Stop: 02/27/19 09:01 Polyethylene Glycol (Miralax (For Daily Use) -) 17 gm PO TID [facility] Last Admin: 02/27/19 13:24 Dose: 17 gm Polyethylene Glycol/Electrolytes (Golytely Solution -) 4,000 ml PO ONCE ONE Stop: 03/01/19 09:01 Tamsulosin HCl (Flomax -) 0.8 mg PO DAILY@0830 [facility] Last Admin: 02/27/19 09:34 Dose: 0.8 mg A/P Symptomatic Anemia r/o GI Bleed COPD Chronic Hypoxic and Hypercapneic Respiratory Failure HTN Atrial Fibrillation Liver Masses - monitor H/H - transfuse as needed - protonix - will decrease medrol - inhaled bronchodilators - o2 to keep Spo2 >90% - no pulmonary contraindications for endoscopy
[2019-02-27] MEDS ORDERED: PHYTONADIONE 10 MG/1 ML AMP IVPB ONE (15:30)
--- NOTE | 2019-02-27 15:54 | PN ---
Progress Note (short form) - Note Progress Note: sitting in chair reports feeling much better remains mildly short of breath O2 in place Vital Signs Period Temp Pulse Resp BP Sys/Cleaning Pulse Ox Last 24 Hr 97.4 F-98.3 F 52-72 18-20 119-135/46-54 97-99 neck supple no JVD heart S1/S2 REG lungs decresed BS throughout abd soft non tender ext + edema CBC, BMP 02/27/19 06:10 02/27/19 06:10 haptoglobin 196 (NL) Active Medications Albuterol Sulfate (Ventolin 0.083% Nebulizer Soln -) 1 amp NEB Q4H PRN PRN Reason: SHORT OF BREATH/WHEEZING Albuterol/Ipratropium (Duoneb -) 1 amp NEB RQID [facility] Last Admin: 02/27/19 11:20 Dose: 1 amp Alprazolam (Xanax -) 1 mg PO Q6HPO [facility] Last Admin: 02/27/19 12:27 Dose: 1 mg Atenolol (Tenormin -) 25 mg PO DAILY [facility] Last Admin: 02/27/19 09:35 Dose: 25 mg Bisacodyl (Dulcolax -) 20 mg PO ONCE ONE Stop: 03/01/19 18:01 Diltiazem HCl (Cardizem Cd -) 120 mg PO DAILY [facility] Last Admin: 02/27/19 09:35 Dose: 120 mg Folic Acid (Folic Acid -) 1 mg PO DAILY [facility] Last Admin: 02/27/19 09:35 Dose: 1 mg Methylprednisolone Sodium Succinate (Solu-Medrol -) 40 mg IVPUSH Q8H-IV [facility] Pantoprazole Sodium (Protonix -) 40 mg PO BID [facility] Last Admin: 02/27/19 09:34 Dose: 40 mg Polyethylene Glycol (Miralax (For Daily Use) -) 17 gm PO TID [facility] Last Admin: 02/27/19 13:24 Dose: 17 gm Polyethylene Glycol/Electrolytes (Golytely Solution -) 4,000 ml PO ONCE ONE Stop: 03/01/19 09:01 Tamsulosin HCl (Flomax -) 0.8 mg PO DAILY@0830 [facility] Last Admin: 02/27/19 09:34 Dose: 0.8 mg A/P # Severe anemia r/o GI bleed / GI consult and follow up appreciated will transfuse as needed goal hgb>8.0 a/c on hold --plavix and NOAC continue to monitor h/h # COPD / chronic hypoxic and hypercapneic respiratory failure O2 dependent keep O2 sat>90% nebulizer/ steroids/ PPi # HTN continue home meds # A fib telemetry SR continue meds for rate control Off a/c pending procedure # Liver mass at time of dx patient had decline any work up did not follow up with oncology or GI as out patient. At time of last hospitalization patient agreed to start work up however did not comply with out patient follow up
[2019-02-27 19:02] LABS: BLOOD UREA NITROGEN 16.2 mg/dL (7-18); CALCIUM 8.4 mg/dL (8.5-10.1); CREATININE 0.7 mg/dL (0.55-1.3); POTASSIUM 3.8 mmol/L (3.5-5.1)
[2019-02-28] MEDS: methylPREDNISolone NA SUCC 40 MG/1 ML VIAL IVPUSH SCH ×2 (01:44→09:08)
[2019-02-28] MEDS: ALPRAZolam 0.25 MG TABLET PO SCH ×3 (05:41→18:20)
[2019-02-28] MEDS: POLYETHYLENE GLYCOL 3350 119 GM BTL PO SCH ×4 (05:41→21:29)
[2019-02-28 07:17] LABS: BASO % 0.1 % (0-2.0); HEMATOCRIT 27.9 % (35.4-49); HEMOGLOBIN 8.3 GM/dL (11.7-16.9); LYMPH % 7.2 % (8-40); MCH 21.8 pg (25.7-33.7); MCHC 29.9 g/dl (32.0-35.9); MEAN CELL VOLUME 72.9 fl (80-96); MEAN PLT VOLUME 8.2 fl (7.5-11.1); NEUT % 88.7 % (42.8-82.8); PLATELET COUNT 332 K/MM3 (134-434); RBC 3.83 M/mm3 (4.00-5.60); RDW 28.2 % (11.9-15.9); WHITE BLOOD COUNT 10.1 K/mm3 (4.0-10.0)
[2019-02-28 07:25] LABS: INR 1.21 (0.83-1.09); PROTHROMBIN TIME (PATIENT) 14.3 SEC (9.7-13.0)
[2019-02-28] MEDS: ALBUTEROL SO4 2.5/IPRATROPIUM 0.5 INH SOL 3 ML VIAL.NEB. NEB SCH ×4 (08:38→19:52)
[2019-02-28] MEDS ORDERED: PT OWN MED DRAWER 7, Y5N ONE (08:39)
[2019-02-28] MEDS: FOLIC ACID 1 MG TABLET (FP) PO SCH (09:08)
[2019-02-28] MEDS: PANTOPRAZOLE 40 MG TABLET (FP) PO SCH ×2 (09:08→21:29)
[2019-02-28] MEDS: ATENOLOL 50 MG TABLET (FP) PO SCH (09:08)
[2019-02-28] MEDS: TAMSULOSIN HCL 0.4 MG CAP PO SCH (09:08)
--- NOTE | 2019-02-28 10:10 | PN ---
Progress Note, Physician History of Present Illness: No CV complaints today Tele: NSR - Current Medication List Current Medications: Active Medications Albuterol Sulfate (Ventolin 0.083% Nebulizer Soln -) 1 amp NEB Q4H PRN PRN Reason: SHORT OF BREATH/WHEEZING Albuterol/Ipratropium (Duoneb -) 1 amp NEB RQID [facility] Last Admin: 02/28/19 08:38 Dose: 1 amp Alprazolam (Xanax -) 1 mg PO Q6HPO [facility] Last Admin: 02/28/19 05:41 Dose: 1 mg Atenolol (Tenormin -) 25 mg PO DAILY [facility] Last Admin: 02/28/19 09:08 Dose: 25 mg Bisacodyl (Dulcolax -) 20 mg PO ONCE ONE Stop: 03/01/19 18:01 Diltiazem HCl (Cardizem Cd -) 120 mg PO DAILY [facility] Last Admin: 02/28/19 09:08 Dose: 120 mg Folic Acid (Folic Acid -) 1 mg PO DAILY [facility] Last Admin: 02/28/19 09:08 Dose: 1 mg Methylprednisolone Sodium Succinate (Solu-Medrol -) 40 mg IVPUSH Q8H-IV [facility] Last Admin: 02/28/19 09:08 Dose: 40 mg Pantoprazole Sodium (Protonix -) 40 mg PO BID [facility] Last Admin: 02/28/19 09:08 Dose: 40 mg Polyethylene Glycol (Miralax (For Daily Use) -) 17 gm PO TID [facility] Last Admin: 02/28/19 05:41 Dose: 17 gm Polyethylene Glycol/Electrolytes (Golytely Solution -) 4,000 ml PO ONCE ONE Stop: 03/01/19 09:01 Tamsulosin HCl (Flomax -) 0.8 mg PO DAILY@0830 [facility] Last Admin: 02/28/19 09:08 Dose: 0.8 mg - Objective Vital Signs: Vital Signs Temperature 97.7 F 02/28/19 06:00 Pulse Rate 63 02/28/19 06:00 Respiratory Rate 18 02/28/19 06:00 Blood Pressure 144/78 02/28/19 06:00 O2 Sat by Pulse Oximetry (%) 99 02/27/19 21:00 Constitutional: Yes: No Distress, Calm Cardiovascular: Yes: Regular Rate and Rhythm Respiratory: Yes: Rales (Bilateral bases) Edema: Yes Labs: CBC, BMP 02/28/19 06:20 02/27/19 18:16 INR, PTT INR 1.21 (0.83-1.09) H 02/28/19 06:20 Assessment/Plan A/P: 73 m hx copd, afib, htn, cad here with sob. AF: -in nsr now -cont dilt, atenolol for rate control -eliquis on hold for anemia HTN: -stable, cont home meds CAD: - Plavix was d/c'd, on DOAC SOB, COPD, Anemia: -Hgb 8.3 today and stable -no signs chf or acs -sxs likely 2/2 anemia, possibly copd component as well -manage per primary, pulm -GI eval for anemia -no cardiac contraindications to egd/colonoscopy
--- NOTE | 2019-02-28 12:41 | PN ---
Progress Note (short form) - Note Progress Note: PULMONARY Denies shortness of breath, cough or wheezing. Vital Signs Period Temp Pulse Resp BP Sys/Cleaning Pulse Ox Last 24 Hr 97.4 F-97.8 F 62-67 18-18 119-144/46-78 99 Gen: NAD at rest Heart: RRR Lung: decreased breath sounds at the bases Abd: soft, nontender Ext: no edema CBC, BMP 02/28/19 06:20 02/27/19 18:16 Active Medications Albuterol Sulfate (Ventolin 0.083% Nebulizer Soln -) 1 amp NEB Q4H PRN PRN Reason: SHORT OF BREATH/WHEEZING Albuterol/Ipratropium (Duoneb -) 1 amp NEB RQID [facility] Last Admin: 02/28/19 08:38 Dose: 1 amp Alprazolam (Xanax -) 1 mg PO Q6HPO [facility] Last Admin: 02/28/19 12:28 Dose: 1 mg Atenolol (Tenormin -) 25 mg PO DAILY [facility] Last Admin: 02/28/19 09:08 Dose: 25 mg Bisacodyl (Dulcolax -) 20 mg PO ONCE ONE Stop: 03/01/19 18:01 Diltiazem HCl (Cardizem Cd -) 120 mg PO DAILY [facility] Last Admin: 02/28/19 09:08 Dose: 120 mg Folic Acid (Folic Acid -) 1 mg PO DAILY [facility] Last Admin: 02/28/19 09:08 Dose: 1 mg Methylprednisolone Sodium Succinate (Solu-Medrol -) 40 mg IVPUSH Q8H-IV [facility] Last Admin: 02/28/19 09:08 Dose: 40 mg Pantoprazole Sodium (Protonix -) 40 mg PO BID [facility] Last Admin: 02/28/19 09:08 Dose: 40 mg Polyethylene Glycol (Miralax (For Daily Use) -) 17 gm PO TID [facility] Last Admin: 02/28/19 12:29 Dose: 17 gm Polyethylene Glycol/Electrolytes (Golytely Solution -) 4,000 ml PO ONCE ONE Stop: 03/01/19 09:01 Tamsulosin HCl (Flomax -) 0.8 mg PO DAILY@0830 [facility] Last Admin: 02/28/19 09:08 Dose: 0.8 mg A/P Symptomatic Anemia r/o GI Bleed COPD Chronic Hypoxic and Hypercapneic Respiratory Failure HTN Atrial Fibrillation Liver Masses - monitor H/H - transfuse as needed - protonix - will decrease medrol to daily - inhaled bronchodilators - o2 to keep Spo2 >90% - no pulmonary contraindications for endoscopy
[2019-02-28 16:50] LABS: BLOOD UREA NITROGEN 14.5 mg/dL (7-18); CALCIUM 8.6 mg/dL (8.5-10.1); CREATININE 0.6 mg/dL (0.55-1.3); POTASSIUM 4.1 mmol/L (3.5-5.1)
--- NOTE | 2019-02-28 23:38 | PN ---
Progress Note (short form) - Note Progress Note: sitting in chair reports feeling much better remains mildly short of breath O2 in place Vital Signs Period Temp Pulse Resp BP Sys/Cleaning Pulse Ox Last 24 Hr 97.4 F-98.3 F 52-72 18-20 119-135/46-54 97-99 neck supple no JVD heart S1/S2 REG lungs decreased BS throughout abd soft non tender ext + edema CBC, BMP 02/28/19 06:20 02/28/19 16:15 haptoglobin 196 (NL) Active Medications Albuterol Sulfate (Ventolin 0.083% Nebulizer Soln -) 1 amp NEB Q4H PRN PRN Reason: SHORT OF BREATH/WHEEZING Albuterol/Ipratropium (Duoneb -) 1 amp NEB RQID [facility] Last Admin: 02/28/19 19:52 Dose: 1 amp Alprazolam (Xanax -) 1 mg PO Q6HPO [facility] Last Admin: 02/28/19 18:20 Dose: 1 mg Atenolol (Tenormin -) 25 mg PO DAILY [facility] Last Admin: 02/28/19 09:08 Dose: 25 mg Bisacodyl (Dulcolax -) 20 mg PO ONCE ONE Stop: 03/01/19 18:01 Diltiazem HCl (Cardizem Cd -) 120 mg PO DAILY [facility] Last Admin: 02/28/19 09:08 Dose: 120 mg Folic Acid (Folic Acid -) 1 mg PO DAILY [facility] Last Admin: 02/28/19 09:08 Dose: 1 mg Methylprednisolone Sodium Succinate (Solu-Medrol -) 40 mg IVPUSH DAILY [facility] Pantoprazole Sodium (Protonix -) 40 mg PO BID [facility] Last Admin: 02/28/19 21:29 Dose: 40 mg Polyethylene Glycol (Miralax (For Daily Use) -) 17 gm PO TID [facility] Last Admin: 02/28/19 21:29 Dose: 17 gm Polyethylene Glycol/Electrolytes (Golytely Solution -) 4,000 ml PO ONCE ONE Stop: 03/01/19 09:01 Tamsulosin HCl (Flomax -) 0.8 mg PO DAILY@0830 [facility] Last Admin: 02/28/19 09:08 Dose: 0.8 mg A/P # Severe anemia r/o GI bleed / GI consult and follow up appreciated will transfuse as needed goal hgb>8.0 a/c on hold --plavix and NOAC continue to monitor h/h # COPD / chronic hypoxic and hypercapneic respiratory failure O2 dependent keep O2 sat>90% nebulizer/ steroids/ PPi # HTN continue home meds # A fib telemetry SR continue meds for rate control Off a/c pending procedure # Liver mass at time of dx patient had decline any work up did not follow up with oncology or GI as out patient. At time of last hospitalization patient agreed to start work up however did not comply with out patient follow up
[2019-03-01] MEDS: ALPRAZolam 0.25 MG TABLET PO SCH ×5 (00:09→23:29)
[2019-03-01] MEDS: POLYETHYLENE GLYCOL 3350 119 GM BTL PO SCH ×3 (05:19→21:06)
[2019-03-01 06:59] LABS: MAGNESIUM 2.2 mg/dL (1.8-2.4); PHOSPHOROUS 2.6 mg/dL (2.5-4.9)
[2019-03-01] MEDS: ALBUTEROL SO4 2.5/IPRATROPIUM 0.5 INH SOL 3 ML VIAL.NEB. NEB SCH ×4 (07:43→19:48)
[2019-03-01 08:24] LABS: HEMATOCRIT 28.1 % (35.4-49); HEMOGLOBIN 8.3 GM/dL (11.7-16.9); MCH 21.6 pg (25.7-33.7); MCHC 29.6 g/dl (32.0-35.9); MEAN CELL VOLUME 73.1 fl (80-96); MEAN PLT VOLUME 8.6 fl (7.5-11.1); PLATELET COUNT 358 K/MM3 (134-434); RBC 3.85 M/mm3 (4.00-5.60); WHITE BLOOD COUNT 12.1 K/mm3 (4.0-10.0)
[2019-03-01] MEDS: TAMSULOSIN HCL 0.4 MG CAP PO SCH (08:47)
[2019-03-01] MEDS ORDERED: PEG 3350/NA SULF BICARB CL/KCL 4000 ML SOLN.RECON PO ONE (09:00)
[2019-03-01] MEDS: methylPREDNISolone NA SUCC 40 MG/1 ML VIAL IVPUSH SCH (09:15)
[2019-03-01] MEDS: PANTOPRAZOLE 40 MG TABLET (FP) PO SCH ×2 (09:15→21:06)
[2019-03-01] MEDS: FOLIC ACID 1 MG TABLET (FP) PO SCH (09:16)
[2019-03-01] MEDS: ATENOLOL 50 MG TABLET (FP) PO SCH (09:16)
--- NOTE | 2019-03-01 09:49 | PN ---
Progress Note, Physician Chief Complaint: anemia, sob History of Present Illness: sob resolved leg swelling much better, not resolved denies cp, palpit - Current Medication List Current Medications: Active Medications Albuterol Sulfate (Ventolin 0.083% Nebulizer Soln -) 1 amp NEB Q4H PRN PRN Reason: SHORT OF BREATH/WHEEZING Albuterol/Ipratropium (Duoneb -) 1 amp NEB RQID [facility] Last Admin: 03/01/19 07:43 Dose: 1 amp Alprazolam (Xanax -) 1 mg PO Q6HPO [facility] Last Admin: 03/01/19 05:19 Dose: 1 mg Atenolol (Tenormin -) 25 mg PO DAILY [facility] Last Admin: 03/01/19 09:16 Dose: 25 mg Bisacodyl (Dulcolax -) 20 mg PO ONCE ONE Stop: 03/01/19 18:01 Diltiazem HCl (Cardizem Cd -) 120 mg PO DAILY [facility] Last Admin: 03/01/19 09:15 Dose: 120 mg Folic Acid (Folic Acid -) 1 mg PO DAILY [facility] Last Admin: 03/01/19 09:16 Dose: 1 mg Methylprednisolone Sodium Succinate (Solu-Medrol -) 40 mg IVPUSH DAILY [facility] Last Admin: 03/01/19 09:15 Dose: 40 mg Pantoprazole Sodium (Protonix -) 40 mg PO BID [facility] Last Admin: 03/01/19 09:15 Dose: 40 mg Polyethylene Glycol (Miralax (For Daily Use) -) 17 gm PO TID [facility] Last Admin: 03/01/19 05:19 Dose: 17 gm Tamsulosin HCl (Flomax -) 0.8 mg PO DAILY@0830 [facility] Last Admin: 03/01/19 08:47 Dose: 0.8 mg - Objective Vital Signs: Vital Signs Temperature 97.7 F 03/01/19 08:52 Pulse Rate 71 03/01/19 08:52 Respiratory Rate 18 03/01/19 08:52 Blood Pressure 151/67 03/01/19 08:52 O2 Sat by Pulse Oximetry (%) 98 03/01/19 08:02 Constitutional: Yes: Well Nourished, No Distress, Calm Cardiovascular: Yes: Regular Rate and Rhythm, S1, S2. No: Gallop, Murmur Respiratory: Yes: Regular, CTA Bilaterally (decr diffusely). No: Rales, Wheezes Extremities: No: Cold Edema: Yes (1+ ankles) Neurological: Yes: Alert, Oriented Psychiatric: No: Agitated Labs: CBC, BMP 03/01/19 05:50 02/28/19 16:15 INR, PTT INR 1.21 (0.83-1.09) H 02/28/19 06:20 Assessment/Plan ecg: sr,nl intervals, no ischemic changes cxr: clear lungs echo 02/2018: nl lv/rv, mild tr, mod phtn echo 07/2018 nl LV/RV fn, mild MR, mod TR, PASP at least 41 mmHg tele: NSR, sinus ken to 40s during sleep A/P: 73 m hx copd, afib, htn, cad here with sob. AF: -in nsr now -cont dilt, atenolol for rate control (mild sinus ken during sleep sec to vagal tone is benign finding) -eliquis on hold for anemia HTN: -stable BPs here -cont home meds CAD: -unclear details, pt reports cath at [facility] about 10 yrs ago and was told he had narrowing in artery but that due to its location it could not be fixed. He says he was started on plavix and told to continue. Seems that cad is no longer and indication for him to take plavix now that he is on eliquis, especially given his anemia now. - Plavix was d/c'd, on DOAC -outpt cardio f/u rec'd SOB, COPD, Anemia: -Hgb 8.3 today and stable -no signs chf or acs -sxs likely 2/2 anemia, possibly copd component as well--sob resolved -manage per primary, pulm -GI eval for anemia -no cardiac contraindications to egd/colonoscopy d/c telemetry
--- NOTE | 2019-03-01 11:28 | PN ---
Progress Note (short form) - Note Progress Note: Resting in NAD. Denies shortness of breath, cough or wheezing. No acute events overnight. Intake & Output 02/26/19 02/27/19 02/28/19 03/01/19 23:59 23:59 23:59 23:59 Intake Total 1750 1230 720 360 Output Total 2100 1780 1890 1350 Balance -350 -550 -1170 -990 Weight 147 lb Last Vital Signs Temp Pulse Resp BP Pulse Ox 97.7 F 71 18 151/67 98 03/01/19 08:52 03/01/19 08:52 03/01/19 08:52 03/01/19 08:52 03/01/19 08:02 Active Medications Albuterol Sulfate (Ventolin 0.083% Nebulizer Soln -) 1 amp NEB Q4H PRN PRN Reason: SHORT OF BREATH/WHEEZING Albuterol/Ipratropium (Duoneb -) 1 amp NEB RQID [facility] Last Admin: 03/01/19 07:43 Dose: 1 amp Alprazolam (Xanax -) 1 mg PO Q6HPO [facility] Last Admin: 03/01/19 05:19 Dose: 1 mg Atenolol (Tenormin -) 25 mg PO DAILY [facility] Last Admin: 03/01/19 09:16 Dose: 25 mg Bisacodyl (Dulcolax -) 20 mg PO ONCE ONE Stop: 03/01/19 18:01 Diltiazem HCl (Cardizem Cd -) 120 mg PO DAILY [facility] Last Admin: 03/01/19 09:15 Dose: 120 mg Folic Acid (Folic Acid -) 1 mg PO DAILY [facility] Last Admin: 03/01/19 09:16 Dose: 1 mg Methylprednisolone Sodium Succinate (Solu-Medrol -) 40 mg IVPUSH DAILY [facility] Last Admin: 03/01/19 09:15 Dose: 40 mg Pantoprazole Sodium (Protonix -) 40 mg PO BID [facility] Last Admin: 03/01/19 09:15 Dose: 40 mg Polyethylene Glycol (Miralax (For Daily Use) -) 17 gm PO TID [facility] Last Admin: 03/01/19 05:19 Dose: 17 gm Tamsulosin HCl (Flomax -) 0.8 mg PO DAILY@0830 [facility] Last Admin: 03/01/19 08:47 Dose: 0.8 mg Gen: NAD at rest Heart: RRR Lung: scattered rhonchi Abd: soft, nontender Ext: no edema Laboratory Results - last 24 hr 02/28/19 03/01/19 03/01/19 16:15 05:50 05:50 WBC 12.1 H RBC 3.85 L Hgb 8.3 L Hct 28.1 L MCV 73.1 L MCH 21.6 L MCHC 29.6 L RDW 28.0 H Plt Count 358 MPV 8.6 Neutrophils % No Result Required. Lymphocytes % No Result Required. Nucleated RBC % 0 Sodium 141 Potassium 4.1 Chloride 100 Carbon Dioxide 35 H Anion Gap 6 L BUN 14.5 Creatinine 0.6 Est GFR (CKD-EPI)AfAm 113.99 Est GFR (CKD-EPI)NonAf 98.35 Random Glucose 104 Calcium 8.6 Phosphorus 2.6 Magnesium 2.2 A/P Symptomatic Anemia r/o GI Bleed COPD Chronic Hypoxic and Hypercapneic Respiratory Failure HTN Atrial Fibrillation Liver Masses No clear history consistent with OSAS - monitor H/H - Normal transfusion thresholds - protonix - medrol taper - inhaled bronchodilators - o2 to keep Spo2 >90% - no pulmonary contraindications for endoscopic evaluation Dr Turner
[2019-03-01] MEDS ORDERED: BISACODYL 5 MG TABLET.DR (FP) PO ONE (18:00)
[2019-03-01 18:14] LABS: BLOOD UREA NITROGEN 10.4 mg/dL (7-18); CALCIUM 8.3 mg/dL (8.5-10.1); CREATININE 0.5 mg/dL (0.55-1.3); POTASSIUM 3.9 mmol/L (3.5-5.1)
[2019-03-01] MEDS ORDERED: MAGNESIUM CITRATE 300 ML BOTTLE PO ONE (19:41)
--- NOTE | 2019-03-01 19:49 | PN ---
Progress Note (short form) - Note Progress Note: sitting on commode completed bowel prep / still having brown BM notified GI - added citroma to bowel prep reports breathing improved remains mildly short of breath O2 in place Vital Signs Period Temp Pulse Resp BP Sys/Cleaning Pulse Ox Last 24 Hr 97.5 F-98.0 F 49-85 18-85 120-151/54-69 98 neck supple no JVD heart S1/S2 REG lungs decreased BS throughout / no wheezing abd soft non tender ext + edema CBC, [facility] 03/01/19 05:50 03/01/19 17:00 CBC, [facility] 02/28/19 06:20 02/28/19 16:15 haptoglobin 196 (NL) Active Medications Albuterol Sulfate (Ventolin 0.083% Nebulizer Soln -) 1 amp NEB Q4H PRN PRN Reason: SHORT OF BREATH/WHEEZING Albuterol/Ipratropium (Duoneb -) 1 amp NEB RQID [facility] Last Admin: 03/01/19 16:30 Dose: 1 amp Alprazolam (Xanax -) 1 mg PO Q6HPO [facility] Last Admin: 03/01/19 17:58 Dose: 1 mg Atenolol (Tenormin -) 25 mg PO DAILY [facility] Last Admin: 03/01/19 09:16 Dose: 25 mg Diltiazem HCl (Cardizem Cd -) 120 mg PO DAILY [facility] Last Admin: 03/01/19 09:15 Dose: 120 mg Folic Acid (Folic Acid -) 1 mg PO DAILY [facility] Last Admin: 03/01/19 09:16 Dose: 1 mg Methylprednisolone Sodium Succinate (Solu-Medrol -) 40 mg IVPUSH DAILY [facility] Last Admin: 03/01/19 09:15 Dose: 40 mg Pantoprazole Sodium (Protonix -) 40 mg PO BID [facility] Last Admin: 03/01/19 09:15 Dose: 40 mg Polyethylene Glycol (Miralax (For Daily Use) -) 17 gm PO TID [facility] Last Admin: 03/01/19 14:16 Dose: 17 gm Tamsulosin HCl (Flomax -) 0.8 mg PO DAILY@0830 [facility] Last Admin: 03/01/19 08:47 Dose: 0.8 mg A/P # Severe anemia r/o GI bleed / GI consult and follow up appreciated will transfuse as needed goal hgb>8.0 a/c on hold --plavix and NOAC continue to monitor h/h bowl prep completed - scheduled for Gi w/u in am # COPD / 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 At time of last hospitalization patient agreed to start work up however did not comply with out patient follow up
--- NOTE | 2019-03-01 21:33 | PN.GI ---
GI Progress Note Subjective: GI NOte: I saw Sidney about noontime today but could document until now. He had finished about 1/[address] Michelle notified me earlier this evening that although he completed the Golytely he was still not clear and Citroma was added. The cardiology and pulmonary clearances are appreciated. - Objective Vital Signs: Vital Signs Temperature 97.7 F 03/01/19 21:17 Pulse Rate 85 03/01/19 21:17 Respiratory Rate 18 03/01/19 21:17 Blood Pressure 149/55 L 03/01/19 21:17 O2 Sat by Pulse Oximetry (%) 98 03/01/19 08:02 Laboratory Tests 02/28/19 03/01/19 03/01/19 06:20 05:50 17:00 Hgb 8.3 L INR 1.21 H Potassium 3.9 Laboratory Tests 02/27/19 02/27/19 06:10 09:00 Carcinoembryonic Ag 2.3 CA 19-9 Antigen 29 Constitutional: No Distress ...Auscultate: Yes: Hyperactive Bowel Sounds ...Palpate: Yes: Soft, Other (nontender) Labs: CBC, BMP 03/01/19 05:50 03/01/19 17:00 INR, PTT INR 1.21 (0.83-1.09) H 02/28/19 06:20 Assessment/Plan Impression: - I suspect colon cancer metastatic to his liver but cannot exclude a gastric, pancreatic or pulmonary source among other possibilities. Sidney and his has granted informed consents for EGD and colonoscopy under a single anesthesia. Plan: -- For EGD and colonoscopy in AM Dr. Barros's covering this weekend is appreciated Problem List - Problems (1) Weight loss Code(s): R63.4 - ABNORMAL WEIGHT LOSS (2) COPD exacerbation Code(s): J44.1 - CHRONIC OBSTRUCTIVE PULMONARY DISEASE W (ACUTE) EXACERBATION (3) Symptomatic anemia Code(s): D64.9 - ANEMIA, UNSPECIFIED (4) Liver masses Code(s): R16.0 - HEPATOMEGALY, NOT ELSEWHERE CLASSIFIED (5) Rapid atrial fibrillation Code(s): I48.91 - UNSPECIFIED ATRIAL FIBRILLATION (6) Anemia Code(s): D64.9 - ANEMIA, UNSPECIFIED Qualifiers: Anemia type: iron deficiency (7) Atrial fibrillation Code(s): I48.91 - UNSPECIFIED ATRIAL FIBRILLATION Qualifiers: (8) Emphysema of lung Code(s): J43.9 - EMPHYSEMA, UNSPECIFIED
[2019-03-02] MEDS: ALPRAZolam 0.25 MG TABLET PO SCH ×4 (06:18→23:08)
[2019-03-02] MEDS: POLYETHYLENE GLYCOL 3350 119 GM BTL PO SCH ×3 (06:18→21:03)
[2019-03-02] MEDS ORDERED: BISACODYL 5 MG TABLET.DR (FP) PO ONE (07:30)
[2019-03-02] MEDS: TAMSULOSIN HCL 0.4 MG CAP PO SCH (07:48)
[2019-03-02 08:06] LABS: EOS % 0.2 % (0-4.5); HEMATOCRIT 29.3 % (35.4-49); HEMOGLOBIN 8.8 GM/dL (11.7-16.9); LYMPH % 8.9 % (8-40); MCH 21.8 pg (25.7-33.7); MEAN CELL VOLUME 72.7 fl (80-96); MEAN PLT VOLUME 8.2 fl (7.5-11.1); MONO % 8.9 % (3.8-10.2); PLATELET COUNT 342 K/MM3 (134-434); RBC 4.03 M/mm3 (4.00-5.60); RDW 28.2 % (11.9-15.9); WHITE BLOOD COUNT 14.4 K/mm3 (4.0-10.0)
[2019-03-02] MEDS: ALBUTEROL SO4 2.5/IPRATROPIUM 0.5 INH SOL 3 ML VIAL.NEB. NEB SCH ×4 (09:24→19:51)
[2019-03-02] MEDS: PANTOPRAZOLE 40 MG TABLET (FP) PO SCH ×2 (09:27→21:04)
[2019-03-02] MEDS: ATENOLOL 50 MG TABLET (FP) PO SCH (09:28)
[2019-03-02] MEDS: FOLIC ACID 1 MG TABLET (FP) PO SCH (09:28)
[2019-03-02] MEDS: methylPREDNISolone NA SUCC 40 MG/1 ML VIAL IVPUSH SCH (09:28)
--- NOTE | 2019-03-02 09:56 | PN ---
Progress Note (short form) - Note Progress Note: patient still doing prep having enema "till clear" BM clear brown otherwise doing well O2 in place respiratory improved Vital Signs Period Temp Pulse Resp BP Sys/Cleaning Pulse Ox Last 24 Hr 97.5 F-98.0 F 49-85 18-85 120-151/54-69 98 neck supple no JVD heart S1/S2 REG lungs decreased BS throughout / no wheezing abd soft non tender ext + edema CBC, [facility] 03/02/19 07:28 03/01/19 17:00 CBC, [facility] 03/01/19 05:50 03/01/19 17:00 CBC, [facility] 02/28/19 06:20 02/28/19 16:15 haptoglobin 196 (NL) Active Medications Albuterol Sulfate (Ventolin 0.083% Nebulizer Soln -) 1 amp NEB Q4H PRN PRN Reason: SHORT OF BREATH/WHEEZING Albuterol/Ipratropium (Duoneb -) 1 amp NEB RQID [facility] Last Admin: 03/02/19 09:24 Dose: 1 amp Alprazolam (Xanax -) 1 mg PO Q6HPO [facility] Last Admin: 03/02/19 06:18 Dose: 1 mg Atenolol (Tenormin -) 25 mg PO DAILY [facility] Last Admin: 03/02/19 09:28 Dose: 25 mg Diltiazem HCl (Cardizem Cd -) 120 mg PO DAILY [facility] Last Admin: 03/02/19 09:27 Dose: 120 mg Folic Acid (Folic Acid -) 1 mg PO DAILY [facility] Last Admin: 03/02/19 09:28 Dose: 1 mg Methylprednisolone Sodium Succinate (Solu-Medrol -) 40 mg IVPUSH DAILY [facility] Last Admin: 03/02/19 09:28 Dose: 40 mg Pantoprazole Sodium (Protonix -) 40 mg PO BID [facility] Last Admin: 03/02/19 09:27 Dose: 40 mg Polyethylene Glycol (Miralax (For Daily Use) -) 17 gm PO TID [facility] Last Admin: 03/02/19 06:18 Dose: Not Given Tamsulosin HCl (Flomax -) 0.8 mg PO DAILY@0830 [facility] Last Admin: 03/02/19 07:48 Dose: 0.8 mg Last Admin: 03/01/19 08:47 Dose: 0.8 mg A/P # Severe anemia scheduled for egd/colonoscopy this afternoon r/o GI bleed / malignancy highly suspect GI consult and follow up appreciated will transfuse as needed goal hgb>8.0 a/c on hold --plavix and NOAC continue to monitor h/h # COPD / 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 At time of last hospitalization patient agreed to start work up however did not comply with out patient follow up
--- NOTE | 2019-03-02 11:48 | PN ---
Progress Note (short form) - Note Progress Note: Resting in NAD. Denies shortness of breath, cough or wheezing. No acute events overnight. Intake & Output 02/27/19 02/28/19 03/01/19 03/02/19 23:59 23:59 23:59 23:59 Intake Total 1637 441 0415 Output Total 1780 1890 2150 Balance -550 -1170 -610 Last Vital Signs Temp Pulse Resp BP Pulse Ox 98.2 F 66 18 145/62 99 03/02/19 08:01 03/02/19 08:01 03/02/19 08:01 03/02/19 08:01 03/02/19 08:03 Active Medications Albuterol Sulfate (Ventolin 0.083% Nebulizer Soln -) 1 amp NEB Q4H PRN PRN Reason: SHORT OF BREATH/WHEEZING Albuterol/Ipratropium (Duoneb -) [address] [facility] Last Admin: 03/02/19 09:24 Dose: 1 amp Alprazolam (Xanax -) [address] [facility] Last Admin: 03/02/19 06:18 Dose: 1 mg Atenolol (Tenormin -) [address] [facility] Last Admin: 03/02/19 09:28 Dose: 25 mg Diltiazem HCl (Cardizem Cd -) [address] [facility] Last Admin: 03/02/19 09:27 Dose: 120 mg Folic Acid (Folic Acid -) [address] [facility] Last Admin: 03/02/19 09:28 Dose: 1 mg Methylprednisolone Sodium Succinate (Solu-Medrol -) [address] [facility] Last Admin: 03/02/19 09:28 Dose: 40 mg Pantoprazole Sodium (Protonix -) [address] [facility] Last Admin: 03/02/19 09:27 Dose: 40 mg Polyethylene Glycol (Miralax (For Daily Use) -) [address] [facility] Last Admin: 03/02/19 06:18 Dose: Not Given Tamsulosin HCl (Flomax -) 0.8 mg PO DAILY@0830 [facility] Last Admin: 03/02/19 07:48 Dose: 0.8 mg Gen: NAD at rest Heart: RRR Lung: scattered rhonchi Abd: soft, nontender Ext: no edema Laboratory Results - last 24 hr 03/01/19 03/02/19 17:00 07:28 WBC 14.4 H RBC 4.03 Hgb 8.8 L Hct 29.3 L MCV 72.7 L MCH 21.8 L MCHC 30.0 L RDW 28.2 H Plt Count 342 MPV 8.2 Absolute Neuts (auto) 11.8 H Neutrophils % 82.0 Lymphocytes % 8.9 D Monocytes % 8.9 D Eosinophils % 0.2 D Basophils % 0.0 Nucleated RBC % 0 Sodium 141 Potassium 3.9 Chloride 101 Carbon Dioxide 35 H Anion Gap 6 L BUN 10.4 Creatinine 0.5 L Est GFR (CKD-EPI)AfAm 122.86 Est GFR (CKD-EPI)NonAf 106.01 Random Glucose 95 Calcium 8.3 L A/P Symptomatic Anemia r/o GI Bleed COPD Chronic Hypoxic and Hypercapneic Respiratory Failure HTN Atrial Fibrillation Liver Masses No clear history consistent with OSAS - monitor H/H - Normal transfusion thresholds - protonix - medrol taper - inhaled bronchodilators - o2 to keep Spo2 >90% - no pulmonary contraindications for endoscopic evaluation Dr Turner
[2019-03-02] MEDS ORDERED: ETOMIDATE 20 MG/10 ML AMPUL IVPUSH ONE (13:39)
--- NOTE | 2019-03-02 15:28 | PN ---
Progress Note (short form) - Note Progress Note: GI NOte: Please see EGD and colonoscopy reports. 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 I have informed Sidney of this and the finding of colon polyps that could not be removed due to the large stool residua that precluded safe usage of cautery. I advised that he undergo RT and chemotherapy to prevent full esophageal obstruction . I also advised a G tube placed by IR which he wants to think about. Will keep on full liquids with ensure supplements. He specifically asked that cream of wheat be allowed and which I have ordered. Problem List - Problems (1) Weight loss Code(s): R63.4 - ABNORMAL WEIGHT LOSS (2) COPD exacerbation Code(s): J44.1 - CHRONIC OBSTRUCTIVE PULMONARY DISEASE W (ACUTE) EXACERBATION (3) Symptomatic anemia Code(s): D64.9 - ANEMIA, UNSPECIFIED (4) Liver masses Code(s): R16.0 - HEPATOMEGALY, NOT ELSEWHERE CLASSIFIED (5) Rapid atrial fibrillation Code(s): I48.91 - UNSPECIFIED ATRIAL FIBRILLATION (6) Anemia Code(s): D64.9 - ANEMIA, UNSPECIFIED Qualifiers: Anemia type: iron deficiency (7) Atrial fibrillation Code(s): I48.91 - UNSPECIFIED ATRIAL FIBRILLATION Qualifiers: (8) Emphysema of lung Code(s): J43.9 - EMPHYSEMA, UNSPECIFIED
[2019-03-02 18:01] LABS: BLOOD UREA NITROGEN 9.7 mg/dL (7-18); CALCIUM 8.1 mg/dL (8.5-10.1); CREATININE 0.5 mg/dL (0.55-1.3); POTASSIUM 3.5 mmol/L (3.5-5.1)
--- NOTE | 2019-03-02 18:14 | PN ---
Progress Note, Physician Chief Complaint: seen and examined s/p endoscopies Denies CP or SOB History of Present Illness: Anemia - Current Medication List Current Medications: Active Medications Albuterol Sulfate (Ventolin 0.083% Nebulizer Soln -) 1 amp NEB Q4H PRN PRN Reason: SHORT OF BREATH/WHEEZING Albuterol/Ipratropium (Duoneb -) 1 amp NEB RQID [facility] Last Admin: 03/02/19 16:09 Dose: 1 amp Alprazolam (Xanax -) 1 mg PO Q6HPO [facility] Last Admin: 03/02/19 17:06 Dose: 1 mg Atenolol (Tenormin -) 25 mg PO DAILY [facility] Last Admin: 03/02/19 09:28 Dose: 25 mg Diltiazem HCl (Cardizem Cd -) 120 mg PO DAILY [facility] Last Admin: 03/02/19 09:27 Dose: 120 mg Folic Acid (Folic Acid -) 1 mg PO DAILY [facility] Last Admin: 03/02/19 09:28 Dose: 1 mg Methylprednisolone Sodium Succinate (Solu-Medrol -) 40 mg IVPUSH DAILY [facility] Last Admin: 03/02/19 09:28 Dose: 40 mg Pantoprazole Sodium (Protonix -) 40 mg PO BID [facility] Last Admin: 03/02/19 09:27 Dose: 40 mg Polyethylene Glycol (Miralax (For Daily Use) -) 17 gm PO TID [facility] Last Admin: 03/02/19 14:35 Dose: Not Given Tamsulosin HCl (Flomax -) 0.8 mg PO DAILY@0830 [facility] Last Admin: 03/02/19 07:48 Dose: 0.8 mg - Objective Vital Signs: Vital Signs Temperature 98.1 F 03/02/19 15:03 Pulse Rate 56 L 03/02/19 15:03 Respiratory Rate 20 03/02/19 15:03 Blood Pressure 119/58 L 03/02/19 15:03 O2 Sat by Pulse Oximetry (%) 98 03/02/19 15:03 Constitutional: Yes: Calm Cardiovascular: Yes: Pulse Irregular Respiratory: Yes: CTA Bilaterally Gastrointestinal: Yes: Soft Edema: No Neurological: Yes: Alert Labs: CBC, BMP 03/02/19 07:28 03/02/19 16:30 INR, PTT INR 1.21 (0.83-1.09) H 02/28/19 06:20 Assessment/Plan IMP: AF ASHD Anemia Esophageal Mass REC: 1. Cont current rate control: Atenolol + Cardizem; tele d/c'd 03/01 2. AC on hold due to anemia and esphageal mass 3. Further plans as outlined by GI
[2019-03-03] MEDS: POLYETHYLENE GLYCOL 3350 119 GM BTL PO SCH ×3 (05:31→22:08)
[2019-03-03] MEDS: ALPRAZolam 0.25 MG TABLET PO SCH ×4 (05:33→23:19)
[2019-03-03 06:39] LABS: BASO % 0.1 % (0-2.0); EOS % 0.3 % (0-4.5); HEMATOCRIT 27.6 % (35.4-49); HEMOGLOBIN 8.4 GM/dL (11.7-16.9); LYMPH % 8.6 % (8-40); MCH 22.1 pg (25.7-33.7); MCHC 30.4 g/dl (32.0-35.9); MEAN CELL VOLUME 72.9 fl (80-96); MEAN PLT VOLUME 8.3 fl (7.5-11.1); MONO % 7.1 % (3.8-10.2); NEUT % 83.9 % (42.8-82.8); PLATELET COUNT 298 K/MM3 (134-434); RBC 3.78 M/mm3 (4.00-5.60); RDW 29.1 % (11.9-15.9); WHITE BLOOD COUNT 13.2 K/mm3 (4.0-10.0)
[2019-03-03 06:41] LABS: BLOOD UREA NITROGEN 14.8 mg/dL (7-18); CALCIUM 7.8 mg/dL (8.5-10.1); CREATININE 0.4 mg/dL (0.55-1.3); POTASSIUM 3.4 mmol/L (3.5-5.1)
[2019-03-03] MEDS: ALBUTEROL SO4 2.5/IPRATROPIUM 0.5 INH SOL 3 ML VIAL.NEB. NEB SCH ×4 (08:11→20:44)
[2019-03-03] MEDS: TAMSULOSIN HCL 0.4 MG CAP PO SCH (08:51)
[2019-03-03] MEDS: methylPREDNISolone NA SUCC 40 MG/1 ML VIAL IVPUSH SCH (09:02)
[2019-03-03] MEDS: ATENOLOL 50 MG TABLET (FP) PO SCH (09:03)
[2019-03-03] MEDS: PANTOPRAZOLE 40 MG TABLET (FP) PO SCH ×2 (09:03→22:08)
[2019-03-03] MEDS: FOLIC ACID 1 MG TABLET (FP) PO SCH (09:03)
--- NOTE | 2019-03-03 10:27 | PN ---
Progress Note (short form) - Note Progress Note: s: no chest pain, palps, dizziness, dyspnea, edema Current Medications Albuterol Sulfate (Ventolin 0.083% Nebulizer Soln -) 1 amp NEB Q4H PRN PRN Reason: SHORT OF BREATH/WHEEZING Albuterol/Ipratropium (Duoneb -) 1 amp NEB RQID [facility] Last Admin: 03/03/19 08:11 Dose: 1 amp Alprazolam (Xanax -) 1 mg PO Q6HPO [facility] Last Admin: 03/03/19 05:33 Dose: 1 mg Atenolol (Tenormin -) 25 mg PO DAILY [facility] Last Admin: 03/03/19 09:03 Dose: 25 mg Diltiazem HCl (Cardizem Cd -) 120 mg PO DAILY [facility] Last Admin: 03/03/19 09:03 Dose: 120 mg Folic Acid (Folic Acid -) 1 mg PO DAILY [facility] Last Admin: 03/03/19 09:03 Dose: 1 mg Methylprednisolone Sodium Succinate (Solu-Medrol -) 40 mg IVPUSH DAILY [facility] Last Admin: 03/03/19 09:02 Dose: 40 mg Pantoprazole Sodium (Protonix -) 40 mg PO BID [facility] Last Admin: 03/03/19 09:03 Dose: 40 mg Polyethylene Glycol (Miralax (For Daily Use) -) 17 gm PO TID [facility] Last Admin: 03/03/19 05:31 Dose: Not Given Tamsulosin HCl (Flomax -) 0.8 mg PO DAILY@0830 [facility] Last Admin: 03/03/19 08:51 Dose: 0.8 mg Vital Signs Period Temp Pulse Resp BP Sys/Cleaning Pulse Ox Last 24 Hr 97.5 F-98.7 F 45-68 14-20 105-145/44-62 95-100 Constitutional: Yes: Calm Cardiovascular: Yes: Pulse Irregular Respiratory: Yes: CTA Bilaterally Gastrointestinal: Yes: Soft Edema: No Neurological: Yes: Alert no jaundice, diaphoresis not agitated IMP: AF ASHD Anemia Esophageal Mass REC: 1. Cont current rate control with atenolol and cardizem 2. AC on hold due to anemia and esphageal mass 3. Further plans as outlined by GI
--- NOTE | 2019-03-03 10:58 | PN ---
Progress Note (short form) - Note Progress Note: GI findings noted. Distal esophageal mass. Denies shortness of breath, cough or wheezing. No acute events overnight. Intake & Output 02/28/19 03/01/19 03/02/19 03/03/19 23:59 23:59 23:59 23:59 Intake Total 720 1540 320 120 Output Total 1890 2150 2000 400 Balance -1170 -610 -1680 -280 Last Vital Signs Temp Pulse Resp BP Pulse Ox 97.9 F 68 18 117/49 L 95 03/03/19 08:52 03/03/19 08:52 03/03/19 08:52 03/03/19 08:52 03/03/19 08:52 Active Medications Albuterol Sulfate (Ventolin 0.083% Nebulizer Soln -) 1 amp NEB Q4H PRN PRN Reason: SHORT OF BREATH/WHEEZING Albuterol/Ipratropium (Duoneb -) 1 amp NEB RQID [facility] Last Admin: 03/03/19 08:11 Dose: 1 amp Alprazolam (Xanax -) 1 mg PO Q6HPO [facility] Last Admin: 03/03/19 05:33 Dose: 1 mg Atenolol (Tenormin -) 25 mg PO DAILY [facility] Last Admin: 03/03/19 09:03 Dose: 25 mg Diltiazem HCl (Cardizem Cd -) 120 mg PO DAILY [facility] Last Admin: 03/03/19 09:03 Dose: 120 mg Folic Acid (Folic Acid -) 1 mg PO DAILY [facility] Last Admin: 03/03/19 09:03 Dose: 1 mg Methylprednisolone Sodium Succinate (Solu-Medrol -) 40 mg IVPUSH DAILY [facility] Last Admin: 03/03/19 09:02 Dose: 40 mg Pantoprazole Sodium (Protonix -) 40 mg PO BID [facility] Last Admin: 03/03/19 09:03 Dose: 40 mg Polyethylene Glycol (Miralax (For Daily Use) -) 17 gm PO TID [facility] Last Admin: 03/03/19 05:31 Dose: Not Given Tamsulosin HCl (Flomax -) 0.8 mg PO DAILY@0830 [facility] Last Admin: 03/03/19 08:51 Dose: 0.8 mg Gen: NAD at rest Heart: RRR Lung: scattered rhonchi Abd: soft, nontender Ext: no edema Laboratory Results - last 24 hr 03/02/19 03/03/19 03/03/19 16:30 05:50 05:50 WBC 13.2 H RBC 3.78 L Hgb 8.4 L Hct 27.6 L MCV 72.9 L MCH 22.1 L MCHC 30.4 L RDW 29.1 H Plt Count 298 MPV 8.3 Absolute Neuts (auto) 11.1 H Neutrophils % 83.9 H Lymphocytes % 8.6 Monocytes % 7.1 Eosinophils % 0.3 Basophils % 0.1 D Nucleated RBC % 0 Sodium 141 142 Potassium 3.5 3.4 L Chloride 102 102 Carbon Dioxide 35 H 34 H Anion Gap 4 L 6 L BUN 9.7 14.8 Creatinine 0.5 L 0.4 L Est GFR (CKD-EPI)AfAm 122.86 134.66 Est GFR (CKD-EPI)NonAf 106.01 116.19 Random Glucose 134 H 86 Calcium 8.1 L 7.8 L A/P Esophageal Mass consistent with Malignancy Symptomatic Anemia r/o GI Bleed COPD Chronic Hypoxic and Hypercapneic Respiratory Failure HTN Atrial Fibrillation Liver Masses No clear history consistent with OSAS - Oncology work up - monitor H/H - Normal transfusion thresholds - protonix - D/C medrol - inhaled bronchodilators - O2 to keep Spo2 >90% Dr Turner
--- NOTE | 2019-03-03 12:07 | PN ---
Progress Note (short form) - Note Progress Note: patient sitting in chair discussed EGD findings - awiting oncology consult BUT WANTS to go home respiratory status improved GI NOte: Please see EGD and colonoscopy reports. 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 I have informed Sidney of this and the finding of colon polyps that could not be removed due to the large stool residua that precluded safe usage of cautery. I advised that he undergo RT and chemotherapy to prevent full esophageal obstruction . I also advised a G tube placed by IR which he wants to think about. Will keep on full liquids with ensure supplements. He specifically asked that cream of wheat be allowed and which I have ordered. POC was discussed with yesterday Vital Signs Period Temp Pulse Resp BP Sys/Cleaning Pulse Ox Last 24 Hr 97.5 F-98.7 F 45-68 14-20 105-145/44-62 95-100 neck supple no JVD heart S1/S2 REG lungs decreased BS throughout / no wheezing abd soft non tender ext + edema improving CBC, BMP 03/03/19 05:50 03/03/19 05:50 CBC, BMP 03/02/19 07:28 03/01/19 17:00 haptoglobin 196 (NL) Active Medications Albuterol Sulfate (Ventolin 0.083% Nebulizer Soln -) 1 amp NEB Q4H PRN PRN Reason: SHORT OF BREATH/WHEEZING Albuterol/Ipratropium (Duoneb -) 1 amp NEB RQID [facility] Last Admin: 03/03/19 08:11 Dose: 1 amp Alprazolam (Xanax -) 1 mg PO Q6HPO [facility] Last Admin: 03/03/19 11:52 Dose: 1 mg Atenolol (Tenormin -) 25 mg PO DAILY [facility] Last Admin: 03/03/19 09:03 Dose: 25 mg Diltiazem HCl (Cardizem Cd -) 120 mg PO DAILY [facility] Last Admin: 03/03/19 09:03 Dose: 120 mg Folic Acid (Folic Acid -) 1 mg PO DAILY [facility] Last Admin: 03/03/19 09:03 Dose: 1 mg Pantoprazole Sodium (Protonix -) 40 mg PO BID [facility] Last Admin: 03/03/19 09:03 Dose: 40 mg Polyethylene Glycol (Miralax (For Daily Use) -) 17 gm PO TID [facility] Last Admin: 03/03/19 05:31 Dose: Not Given Tamsulosin HCl (Flomax -) 0.8 mg PO DAILY@0830 [facility] Last Admin: 03/03/19 08:51 Dose: 0.8 mg GI NOte: Please see EGD and colonoscopy reports. 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 I have informed Sidney of this and the finding of colon polyps that could not be removed due to the large stool residua that precluded safe usage of cautery. I advised that he undergo RT and chemotherapy to prevent full esophageal obstruction . I also advised a G tube placed by IR which he wants to think about. Will keep on full liquids with ensure supplements. He specifically asked that cream of wheat be allowed and which I have ordered. 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
[2019-03-04] MEDS: ALPRAZolam 0.25 MG TABLET PO SCH ×4 (06:19→23:32)
[2019-03-04] MEDS: POLYETHYLENE GLYCOL 3350 119 GM BTL PO SCH ×3 (06:19→23:02)
[2019-03-04 07:47] LABS: BLOOD UREA NITROGEN 8.5 mg/dL (7-18); CALCIUM 8.3 mg/dL (8.5-10.1); CREATININE 0.5 mg/dL (0.55-1.3)
[2019-03-04 08:06] LABS: BASO % 0.1 % (0-2.0); EOS % 0.9 % (0-4.5); HEMATOCRIT 28.3 % (35.4-49); HEMOGLOBIN 8.5 GM/dL (11.7-16.9); LYMPH % 7.8 % (8-40); MCH 21.8 pg (25.7-33.7); MEAN CELL VOLUME 72.7 fl (80-96); MEAN PLT VOLUME 8.5 fl (7.5-11.1); MONO % 8.1 % (3.8-10.2); NEUT % 83.1 % (42.8-82.8); PLATELET COUNT 283 K/MM3 (134-434); RBC 3.89 M/mm3 (4.00-5.60); RDW 29.8 % (11.9-15.9)
[2019-03-04] MEDS: ALBUTEROL SO4 2.5/IPRATROPIUM 0.5 INH SOL 3 ML VIAL.NEB. NEB SCH ×4 (08:25→21:00)
[2019-03-04] MEDS: TAMSULOSIN HCL 0.4 MG CAP PO SCH (08:53)
[2019-03-04] MEDS ORDERED: PT OWN MED DRAWER 7, Y5N ONE (09:10)
[2019-03-04] MEDS: ATENOLOL 50 MG TABLET (FP) PO SCH (09:13)
[2019-03-04] MEDS: PANTOPRAZOLE 40 MG TABLET (FP) PO SCH ×2 (09:13→23:02)
[2019-03-04] MEDS: FOLIC ACID 1 MG TABLET (FP) PO SCH (09:14)
--- NOTE | 2019-03-04 10:21 | PN ---
Progress Note (short form) - Note Progress Note: Denies shortness of breath, cough or wheezing. No acute events overnight. Wants to go home. Intake & Output 03/01/19 03/02/19 03/03/19 03/04/19 23:59 23:59 23:59 23:59 Intake Total 1540 320 120 Output Total 2150 6409 7039 513 Banner -508 -1680 -1605 -925 Last Vital Signs Temp Pulse Resp BP Pulse Ox 97.5 F L 55 L 18 146/54 L 100 03/04/19 05:32 03/04/19 05:32 03/04/19 09:00 03/04/19 05:32 03/04/19 09:00 Active Medications Albuterol Sulfate (Ventolin 0.083% Nebulizer Soln -) 1 amp NEB Q4H PRN PRN Reason: SHORT OF BREATH/WHEEZING Albuterol/Ipratropium (Duoneb -) 1 amp NEB RQID [facility] Last Admin: 03/04/19 08:25 Dose: 1 amp Alprazolam (Xanax -) 1 mg PO Q6HPO [facility] Last Admin: 03/04/19 06:19 Dose: 1 mg Atenolol (Tenormin -) 25 mg PO DAILY [facility] Last Admin: 03/04/19 09:13 Dose: 25 mg Diltiazem HCl (Cardizem Cd -) 120 mg PO DAILY [facility] Last Admin: 03/04/19 09:14 Dose: 120 mg Folic Acid (Folic Acid -) 1 mg PO DAILY [facility] Last Admin: 03/04/19 09:14 Dose: 1 mg Pantoprazole Sodium (Protonix -) 40 mg PO BID [facility] Last Admin: 03/04/19 09:13 Dose: 40 mg Polyethylene Glycol (Miralax (For Daily Use) -) 17 gm PO TID [facility] Last Admin: 03/04/19 06:19 Dose: 17 gm Tamsulosin HCl (Flomax -) 0.8 mg PO DAILY@0830 [facility] Last Admin: 03/04/19 08:53 Dose: 0.8 mg Gen: NAD at rest Heart: RRR Lung: scattered rhonchi Abd: soft, nontender Ext: no edema Laboratory Results - last 24 hr 03/04/19 03/04/19 07:10 07:10 WBC 15.0 H RBC 3.89 L Hgb 8.5 L Hct 28.3 L MCV 72.7 L MCH 21.8 L MCHC 30.0 L RDW 29.8 H Plt Count 283 MPV 8.5 Absolute Neuts (auto) 12.5 H Neutrophils % 83.1 H Lymphocytes % 7.8 L Monocytes % 8.1 Eosinophils % 0.9 D Basophils % 0.1 Nucleated RBC % 0 Sodium 142 Potassium 4.0 Chloride 102 Carbon Dioxide 36 H Anion Gap 3 L BUN 8.5 Creatinine 0.5 L Est GFR (CKD-EPI)AfAm 122.86 Est GFR (CKD-EPI)NonAf 106.01 Random Glucose 91 Calcium 8.3 L A/P Esophageal Mass consistent with Malignancy Symptomatic Anemia r/o GI Bleed COPD Chronic Hypoxic and Hypercapneic Respiratory Failure HTN Atrial Fibrillation Liver Masses No clear history consistent with OSAS - Oncology work up ongoing - monitor H/H - Normal transfusion thresholds - protonix - Monitor off systemic steroids - inhaled bronchodilators - O2 to keep Spo2 >90% - DC planning Dr Turner
--- NOTE | 2019-03-04 10:26 | PN ---
Progress Note (short form) - Note Progress Note: s: no chest pain, palps, dizziness, dyspnea, edema Current Medications Generic Name Dose Route Start Last Admin Trade Name Freq PRN Reason Stop Dose Admin Albuterol Sulfate 1 amp 02/24/19 14:26 Ventolin 0.083% Nebulizer Soln - NEB Q4H PRN SHORT OF BREATH/WHEEZING Albuterol/Ipratropium 1 amp 02/24/19 14:35 03/04/19 08:25 Duoneb - NEB 1 amp RQID [facility] Administration Alprazolam 1 mg 02/24/19 18:00 03/04/19 06:19 Xanax - PO 1 mg Q6HPO [facility] Administration Atenolol 25 mg 02/25/19 10:00 03/04/19 09:13 Tenormin - PO 25 mg DAILY [facility] Administration Diltiazem HCl 120 mg 02/25/19 10:00 03/04/19 09:14 Cardizem Cd - PO 120 mg DAILY [facility] Administration Folic Acid 1 mg 02/25/19 10:00 03/04/19 09:14 Folic Acid - PO 1 mg DAILY [facility] Administration Pantoprazole Sodium 40 mg 02/24/19 22:00 03/04/19 09:13 Protonix - PO 40 mg BID [facility] Administration Polyethylene Glycol 17 gm 02/26/19 22:00 03/04/19 06:19 Miralax (For Daily Use) - PO 17 gm TID [facility] Administration Tamsulosin HCl 0.8 mg 02/25/19 08:30 03/04/19 08:53 Flomax - PO 0.8 mg DAILY@0830 [facility] Administration Vital Signs Period Temp Pulse Resp BP Sys/Cleaning Pulse Ox Last 24 Hr 97.5 F-98.3 F 55-80 17-18 117-146/49-54 100-100 Constitutional: Yes: Calm Cardiovascular: Yes: Pulse Irregular Respiratory: Yes: CTA Bilaterally Gastrointestinal: Yes: Soft Edema: No Neurological: Yes: Alert no jaundice, diaphoresis not agitated CBC, BMP 03/04/19 07:10 03/04/19 07:10 IMP: AF ASHD Anemia Esophageal Mass REC: 1. Cont current rate control with atenolol and cardizem 2. AC on hold due to anemia and esphageal mass 3. Further plans as outlined by GI
[2019-03-04 12:28] LABS: ANISOCYTOSIS 2+; MACROCYTOSIS 1+; PLATELET ESTIMATE NORMAL; TEAR DROP CELLS 1+
--- NOTE | 2019-03-04 15:44 | PATH ---
Surgical Pathology Report Patient Name: GRISEL JASON [facility]. Rec. #: [id number] /Age/Gender: 1945 (Age: 73) / M Account: [id number] Location: 4 SO PEDS/ADOL Taken: 03/02/2019 Received: 03/03/2019 Reported: 03/04/2019 Physicians: Rivera Ramos MD Specimen(s) Received A: ANTRUM B: DISTAL ESOPHAGEAL MASS C: PROXIMAL TRANSVERSE COLON POLYP Clinical History Anemia, liver mass, rule out gastric colon cancer Postoperative diagnosis: Esophageal mass, diverticulosis, colon polyps Final Diagnosis A. STOMACH, ANTRUM, BIOPSY: GASTRIC ANTRAL MUCOSA WITH MILD CHRONIC ACTIVE GASTRITIS. IMMUNOHISTOCHEMICAL STAIN FOR H. PYLORI IS NEGATIVE. B. DISTAL ESOPHAGEAL MASS, BIOPSY: ADENOCARCINOMA, MODERATELY DIFFERENTIATED. SEE COMMENT. C. PROXIMAL TRANSVERSE COLON, POLYP, BIOPSY: TUBULAR ADENOMA. Comment: Immunohistochemical stains performed and interpreted at [facility] show the tumor is positive for CK-7 and focally for CK-20. Patchy staining for P63 is noted. HER-2 studies pending, findings will be reported separately. Findings discussed with Dr. Bunch. Positive and negative controls (internal if applicable) show appropriate results. Electronically Signed Raine Bailey M.D. Gross Description A. Received in formalin, labeled "biopsy antrum" are 2 roa, irregular portions of soft tissue measuring 0.4 and 0.5 cm. in greatest dimension. The specimens are submitted in toto in one cassette. B. Received in formalin, labeled "biopsy distal esophageal mass" are 6 roa, irregular portions of soft tissue ranging from 0.2-0.5 cm. in greatest dimension. The specimens are submitted in toto in one cassette. C. Received in formalin, labeled "biopsy proximal transverse colon polyp" are 5 roa, irregular portions of soft tissue ranging from 0.2-0.5 cm. in greatest dimension. The specimens are submitted in toto in one cassette. DL03/03/2019 saudi03/03/2019
--- NOTE | 2019-03-04 16:57 | PN ---
Physical Exam: SUBJECTIVE: Patient seen and examined. No acute events overnight. Says he wants to go home. OBJECTIVE: Vital Signs Period Temp Pulse Resp BP Sys/Cleaning Pulse Ox Last 24 Hr 97.5 F-98.3 F 55-80 16-18 123-146/53-73 100-100 GENERAL: a/o x 3a EARS, NOSE, THROAT: Dry mucous membrane NECK: supple neck LUNGS: decreased breath sounds HEART: irregular rhythm ABDOMEN: Soft, nontender, not distended LOWER EXTREMITIES: 2+ pulses, edema improving Laboratory Results - last 24 hr 03/04/19 03/04/19 07:10 07:10 WBC 15.0 H RBC 3.89 L Hgb 8.5 L Hct 28.3 L MCV 72.7 L MCH 21.8 L MCHC 30.0 L RDW 29.8 H Plt Count 283 MPV 8.5 Absolute Neuts (auto) 12.5 H Neutrophils % 83.1 H Lymphocytes % 7.8 L Monocytes % 8.1 Eosinophils % 0.9 D Basophils % 0.1 Nucleated RBC % 0 Hypochromia 2+ Platelet Estimate Normal Polychromasia 1+ Poikilocytosis 1+ Anisocytosis 2+ Microcytosis 1+ Macrocytosis 1+ Tear Drop Cells 1+ Sodium 142 Potassium 4.0 Chloride 102 Carbon Dioxide 36 H Anion Gap 3 L BUN 8.5 Creatinine 0.5 L Est GFR (CKD-EPI)AfAm 122.86 Est GFR (CKD-EPI)NonAf 106.01 Random Glucose 91 Calcium 8.3 L Active Medications Generic Name Dose Route Start Last Admin Trade Name Freq PRN Reason Stop Dose Admin Albuterol Sulfate 1 amp 02/24/19 14:26 Ventolin 0.083% Nebulizer Soln - NEB Q4H PRN SHORT OF BREATH/WHEEZING Albuterol/Ipratropium 1 amp 02/24/19 14:35 03/04/19 12:42 Duoneb - NEB 1 amp RQID [facility] Administration Alprazolam 1 mg 02/24/19 18:00 03/04/19 11:31 Xanax - PO 1 mg Q6HPO [facility] Administration Atenolol 25 mg 02/25/19 10:00 03/04/19 09:13 Tenormin - PO 25 mg DAILY [facility] Administration Diltiazem HCl 120 mg 02/25/19 10:00 03/04/19 09:14 Cardizem Cd - PO 120 mg DAILY [facility] Administration Folic Acid 1 mg 02/25/19 10:00 03/04/19 09:14 Folic Acid - PO 1 mg DAILY [facility] Administration Pantoprazole Sodium 40 mg 02/24/19 22:00 03/04/19 09:13 Protonix - PO 40 mg BID [facility] Administration Polyethylene Glycol 17 gm 02/26/19 22:00 03/04/19 13:59 Miralax (For Daily Use) - PO 17 gm TID [facility] Administration Tamsulosin HCl 0.8 mg 02/25/19 08:30 03/04/19 08:53 Flomax - PO 0.8 mg DAILY@0830 [facility] Administration ASSESSMENT/PLAN: #Esophageal Mass #Liver Mets #Moderately Differentiated Adenocarcinoma #Iron Def Anemia -Path results revealing Mod Diff Adenocarcinoma Will be a candidate for palliative chemotherapy-- xeloda or FOLFOX or XELOX -Give Venofer 200mg -will need to follow up outpatient Visit type - Emergency Visit Emergency Visit: Yes ED Registration Date: 02/24/19 Care time: The patient presented to the Emergency Department on the above date and was hospitalized for further evaluation of their emergent condition. - New Patient This patient is new to me today: Yes Date on this admission: 03/05/19 - Critical Care Critical Care patient: No ATTENDING PHYSICIAN STATEMENT I saw and evaluated the patient. I reviewed the resident's note and discussed the case with the resident. I agree with the resident's findings and plan as documented. SUBJECTIVE: OBJECTIVE: ASSESSMENT AND PLAN:
[2019-03-04] MEDS ORDERED: IRON SUCROSE INJECTION 200 MG in SODIUM CHLORIDE 90 ML IVPB ONE (17:00)
--- NOTE | 2019-03-04 18:35 | PN ---
Progress Note (short form) - Note Progress Note: patient sitting in chair WANTS to go home respiratory status improved GI NOte: Please see EGD and colonoscopy reports. 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 I have informed Sidney of this and the finding of colon polyps that could not be removed due to the large stool residua that precluded safe usage of cautery. I advised that he undergo RT and chemotherapy to prevent full esophageal obstruction . I also advised a G tube placed by IR which he wants to think about. Will keep on full liquids with ensure supplements. He specifically asked that cream of wheat be allowed and which I have ordered. GI discussed POC was discussed with day of EGD Vital Signs Period Temp Pulse Resp BP Sys/Cleaning Pulse Ox Last 24 Hr 97.5 F-98.2 F 55-80 16-18 123-146/53-73 100-100 neck supple no JVD heart S1/S2 REG lungs decreased BS throughout / no wheezing abd soft non tender ext + edema improving CBC, BMP 03/04/19 07:10 03/04/19 07:10 CBC, [facility] 03/03/19 05:50 03/03/19 05:50 haptoglobin 196 (NL) Active Medications Albuterol Sulfate (Ventolin 0.083% Nebulizer Soln -) 1 amp NEB Q4H PRN PRN Reason: SHORT OF BREATH/WHEEZING Albuterol/Ipratropium (Duoneb -) 1 amp NEB RQID [facility] Last Admin: 03/04/19 17:00 Dose: 1 amp Alprazolam (Xanax -) 1 mg PO Q6HPO [facility] Last Admin: 03/04/19 17:33 Dose: 1 mg Atenolol (Tenormin -) 25 mg PO DAILY [facility] Last Admin: 03/04/19 09:13 Dose: 25 mg Diltiazem HCl (Cardizem Cd -) 120 mg PO DAILY [facility] Last Admin: 03/04/19 09:14 Dose: 120 mg Folic Acid (Folic Acid -) 1 mg PO DAILY [facility] Last Admin: 03/04/19 09:14 Dose: 1 mg Pantoprazole Sodium (Protonix -) 40 mg PO BID [facility] Last Admin: 03/04/19 09:13 Dose: 40 mg Polyethylene Glycol (Miralax (For Daily Use) -) 17 gm PO TID [facility] Last Admin: 03/04/19 13:59 Dose: 17 gm Tamsulosin HCl (Flomax -) 0.8 mg PO DAILY@0830 [facility] Last Admin: 03/04/19 08:53 Dose: 0.8 mg GI NOte: Please see EGD and colonoscopy reports. 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 I have informed Sidney of this and the finding of colon polyps that could not be removed due to the large stool residua that precluded safe usage of cautery. I advised that he undergo RT and chemotherapy to prevent full esophageal obstruction . I also advised a G tube placed by IR which he wants to think about. Will keep on full liquids with ensure supplements. He specifically asked that cream of wheat be allowed and which I have ordered. Problem List A/P # Severe anemia s/p EGD / Colonoscopy 03/02 large nearly obstructing distal esophageal tumor Oncology consulted G tube option still undecided patient didnot want to discuss options / wants to go home will request for palliative care / or alevism support # COPD / chronic hypoxic and hypercapneic respiratory failure O2 dependent keep O2 sat>90% nebulizer/ steroids/ PPi steroid taper # HTN continue home meds # A fib telemetry SR continue meds for rate control Off a/c pending procedure no arrhythmia on tele -- OK to d/c tele
--- NOTE | 2019-03-04 18:53 | PN ---
Progress Note (short form) - Note Progress Note: Patient seen and examined Anxious to go home AFVSS Cor: RSR, No murmurs, No gallops Lungs: Clear to P&A Abd: Soft, Normal bowel sounds, No organomegaly Ext:No significant edema Labs/Meds reviewed A/P 73 y/o patient with COPD, comorbidities, liver mets Biopsy of esophageal mass c./w adenoca Her2 stain pending Metasatic esophageal cancer, presumed Will be a candidate for palliative chemotherapy-- xeloda or FOLFOX or XELOX will need close outpatient follow up will discuss with GI/primary teams
--- NOTE | 2019-03-04 21:41 | PN.GI ---
GI Progress Note Subjective: GI Note: I have informed Sidney that biopsies confirm that he has esophageal adenocarcinoma and reiterated the need to proceed with RT and chemotherapy - Objective Vital Signs: Vital Signs Temperature 98.0 F 03/04/19 18:00 Pulse Rate 63 03/04/19 18:00 Respiratory Rate 18 03/04/19 18:00 Blood Pressure 128/50 L 03/04/19 18:00 O2 Sat by Pulse Oximetry (%) 100 03/04/19 09:00 Constitutional: Anxious ...Auscultate: Yes: Normoactive Bowel Sounds ...Palpate: Yes: Soft, Other (nontender) Labs: CBC, BMP 03/04/19 07:10 03/04/19 07:10 INR, PTT INR 1.21 (0.83-1.09) H 02/28/19 06:20 Assessment/Plan Impression: - Stage 4 esophageal adenocarcinoma wth dysphagia and liver mets. Plan: -- Await oncology and RT consultations Problem List - Problems (1) Adenocarcinoma of esophagus, stage 4 Code(s): C15.9 - MALIGNANT NEOPLASM OF ESOPHAGUS, UNSPECIFIED (2) Dysphagia Code(s): R13.10 - DYSPHAGIA, UNSPECIFIED (3) Weight loss Code(s): R63.4 - ABNORMAL WEIGHT LOSS (4) COPD exacerbation Code(s): J44.1 - CHRONIC OBSTRUCTIVE PULMONARY DISEASE W (ACUTE) EXACERBATION (5) Symptomatic anemia Code(s): D64.9 - ANEMIA, UNSPECIFIED (6) Liver masses Code(s): R16.0 - HEPATOMEGALY, NOT ELSEWHERE CLASSIFIED (7) Rapid atrial fibrillation Code(s): I48.91 - UNSPECIFIED ATRIAL FIBRILLATION (8) Anemia Code(s): D64.9 - ANEMIA, UNSPECIFIED Qualifiers: Anemia type: iron deficiency (9) Atrial fibrillation Code(s): I48.91 - UNSPECIFIED ATRIAL FIBRILLATION Qualifiers: (10) Emphysema of lung Code(s): J43.9 - EMPHYSEMA, UNSPECIFIED
[2019-03-05] MEDS: ALPRAZolam 0.25 MG TABLET PO SCH ×3 (05:51→17:54)
[2019-03-05] MEDS: POLYETHYLENE GLYCOL 3350 119 GM BTL PO SCH ×2 (05:51→15:28)
[2019-03-05] MEDS: ALBUTEROL SO4 2.5/IPRATROPIUM 0.5 INH SOL 3 ML VIAL.NEB. NEB SCH ×3 (07:20→15:30)
[2019-03-05 07:36] LABS: BASO % 0.1 % (0-2.0); EOS % 6.6 % (0-4.5); HEMATOCRIT 28.6 % (35.4-49); HEMOGLOBIN 8.6 GM/dL (11.7-16.9); MCH 22.1 pg (25.7-33.7); MCHC 30.2 g/dl (32.0-35.9); MEAN CELL VOLUME 73.1 fl (80-96); MEAN PLT VOLUME 8.3 fl (7.5-11.1); MONO % 9.2 % (3.8-10.2); NEUT % 74.1 % (42.8-82.8); PLATELET COUNT 267 K/MM3 (134-434); RBC 3.92 M/mm3 (4.00-5.60); WHITE BLOOD COUNT 12.3 K/mm3 (4.0-10.0)
[2019-03-05 07:47] LABS: ALBUMIN 2.7 g/dl (3.4-5.0); BILIRUBIN,TOTAL 0.6 mg/dL (0.2-1); BLOOD UREA NITROGEN 6.5 mg/dL (7-18); CALCIUM 7.9 mg/dL (8.5-10.1); CREATININE 0.5 mg/dL (0.55-1.3); TOT PROT 5.2 g/dl (6.4-8.2)
--- NOTE | 2019-03-05 08:14 | PN ---
Progress Note, Physician Chief Complaint: sitting in chair, no CP or SOB - Current Medication List Current Medications: Active Medications Albuterol Sulfate (Ventolin 0.083% Nebulizer Soln -) 1 amp NEB Q4H PRN PRN Reason: SHORT OF BREATH/WHEEZING Albuterol/Ipratropium (Duoneb -) 1 amp NEB RQID [facility] Last Admin: 03/05/19 07:20 Dose: 1 amp Alprazolam (Xanax -) 1 mg PO Q6HPO [facility] Last Admin: 03/05/19 05:51 Dose: 1 mg Atenolol (Tenormin -) 25 mg PO DAILY [facility] Last Admin: 03/04/19 09:13 Dose: 25 mg Diltiazem HCl (Cardizem Cd -) 120 mg PO DAILY [facility] Last Admin: 03/04/19 09:14 Dose: 120 mg Folic Acid (Folic Acid -) 1 mg PO DAILY [facility] Last Admin: 03/04/19 09:14 Dose: 1 mg Pantoprazole Sodium (Protonix -) 40 mg PO BID [facility] Last Admin: 03/04/19 23:02 Dose: 40 mg Polyethylene Glycol (Miralax (For Daily Use) -) 17 gm PO TID [facility] Last Admin: 03/05/19 05:51 Dose: 17 gm Tamsulosin HCl (Flomax -) 0.8 mg PO DAILY@0830 [facility] Last Admin: 03/04/19 08:53 Dose: 0.8 mg - Objective Vital Signs: Vital Signs Temperature 98.9 F 03/05/19 06:00 Pulse Rate 70 03/05/19 06:00 Respiratory Rate 18 03/05/19 06:00 Blood Pressure 144/65 03/05/19 06:00 O2 Sat by Pulse Oximetry (%) 100 03/04/19 21:00 Constitutional: Yes: No Distress, Calm Cardiovascular: Yes: Regular Rate and Rhythm Respiratory: Yes: Other (no rales, no wheeze) Gastrointestinal: Yes: Soft Edema: Yes Edema: LLE: 1+, RLE: 1+ Neurological: Yes: Alert, Oriented ...Motor Strength: WNL Labs: CBC, BMP 03/05/19 07:00 03/05/19 07:00 INR, PTT INR 1.21 (0.83-1.09) H 02/28/19 06:20 Assessment/Plan IMP: AF ASHD Anemia Esophageal Mass REC: 1. Cont current rate control with atenolol and cardizem 2. AC on hold due to anemia and esphageal mass 3. Further plans as outlined by GI
[2019-03-05] MEDS: TAMSULOSIN HCL 0.4 MG CAP PO SCH (09:05)
[2019-03-05] MEDS: PANTOPRAZOLE 40 MG TABLET (FP) PO SCH (09:06)
[2019-03-05] MEDS: FOLIC ACID 1 MG TABLET (FP) PO SCH (09:06)
[2019-03-05] MEDS: ATENOLOL 50 MG TABLET (FP) PO SCH (09:06)
[2019-03-05 10:54] VITALS: BP 148/61; PULSE 80; TEMP 98.2
--- NOTE | 2019-03-05 12:07 | DS ---
Physical Examination Vital Signs: Vital Signs Temperature 98.2 F 03/05/19 10:00 Pulse Rate 80 03/05/19 10:00 Respiratory Rate 18 03/05/19 10:00 Blood Pressure 148/61 03/05/19 10:00 O2 Sat by Pulse Oximetry (%) 96 03/05/19 09:00 Constitutional: Yes: Cachectic, Thin Eyes: Yes: Conjunctiva Clear HENT: Yes: Atraumatic, Normocephalic Neck: Yes: Supple, Trachea Midline Cardiovascular: Yes: Regular Rate and Rhythm Respiratory: Yes: Regular, CTA Bilaterally Gastrointestinal: Yes: Normal Bowel Sounds, Soft ...Rectal Exam: Yes: Deferred Renal/: Yes: WNL Breast(s): Yes: WNL Musculoskeletal: Yes: WNL Extremities: Yes: WNL Edema: No Peripheral Pulses WNL: No Integumentary: Yes: WNL Neurological: Yes: Alert, Confusion ...Motor Strength: WNL Psychiatric: Yes: Alert (Confused at times.) Labs: CBC, BMP 03/05/19 07:00 03/05/19 07:00 Discharge Summary Reason For Visit: ANEMIA ACUTE EXACERBATION OF CHRONIC OBSTRUCTIVE Current Active Problems Adenocarcinoma of esophagus, stage 4 (Acute) Anemia (Acute) COPD exacerbation (Acute) Dysphagia (Acute) Severe protein-calorie malnutrition (Acute) Symptomatic anemia (Acute) Weight loss (Acute) Hospital Course: The patient is a 73 year old male with a significant PMH of COPD (on home O2), Afib, HTN, and CHF admitted for SOB. Per CTA in Aug 2018, masses on his liver consistent with neoplasm were noted. Patient previously declined work up although aware of liver masses. Patient was admitted again in December 2018 for acute exacerbation of COPD and evaluated by oncology during hospital stay. Declined colonoscopy at that time. This admission, pt agreed to and had both endoscopy and colonsocopy. Endoscopy revealed stage 4 esophageal adenocarcinoma with dysphagia and liver mets.G tube recommended. Pt declined but states will consent to radiation treatments and chemo. Plan to dc home today with . Condition: Guarded - Instructions Diet, Activity, Other Instructions: Follow up with Oncologist as outpatient. Pt requires radiation and chemotherapy for stage 4 esophageal adenocarcinoma and liver mets. Disposition: HOME - Home Medications Comprehensive Discharge Medication List: Ambulatory Orders Alprazolam [Xanax] 1 mg PO QID 03/06/18 Folic Acid 1 mg PO DAILY 03/06/18 Albuterol 2.5/Ipratropium 0.5 [Duoneb -] 1 vial NEB QID PRN 03/09/18 Diltiazem Cd [Cardizem Cd -] 120 mg PO DAILY #30 cap.cd.24h 03/19/18 Apixaban [Eliquis] 5 mg PO BID 30 Days #60 tablet 04/23/18 Tamsulosin HCl [Flomax -] 0.8 mg PO DAILY@30 30 Days #60 cap.er.24h 04/23/18 Clopidogrel Bisulfate [Plavix -] 75 mg PO DAILY tablet 08/29/18 Albuterol 0.083% Nebulizer Verna [Ventolin 0.083% Nebulizer Soln -] 1 amp NEB Q4H PRN amp 12/29/18 Atenolol [Tenormin -] 25 mg PO DAILY 30 Days #30 tablet 12/29/18
--- NOTE | 2019-03-05 16:01 | PN ---
Progress Note (short form) - Note Progress Note: PULMONARY Denies shortness of breath, cough or wheezing. Vital Signs Period Temp Pulse Resp BP Sys/Cleaning Pulse Ox Last 24 Hr 98.0 F-98.9 F 63-80 18-18 125-148/48-65 96-100 Gen: NAD at rest Heart: RRR Lung: decreased breath sounds at the bases Abd: soft, nontender Ext: no edema CBC, BMP 03/05/19 07:00 03/05/19 07:00 Active Medications Albuterol Sulfate (Ventolin 0.083% Nebulizer Soln -) 1 amp NEB Q4H PRN PRN Reason: SHORT OF BREATH/WHEEZING Albuterol/Ipratropium (Duoneb -) 1 amp NEB RQID [facility] Last Admin: 03/05/19 11:15 Dose: 1 amp Alprazolam (Xanax -) 1 mg PO Q6HPO [facility] Last Admin: 03/05/19 11:42 Dose: 1 mg Atenolol (Tenormin -) 25 mg PO DAILY [facility] Last Admin: 03/05/19 09:06 Dose: 25 mg Diltiazem HCl (Cardizem Cd -) 120 mg PO DAILY [facility] Last Admin: 03/05/19 09:07 Dose: 120 mg Folic Acid (Folic Acid -) 1 mg PO DAILY [facility] Last Admin: 03/05/19 09:06 Dose: 1 mg Pantoprazole Sodium (Protonix -) 40 mg PO BID [facility] Last Admin: 03/05/19 09:06 Dose: 40 mg Polyethylene Glycol (Miralax (For Daily Use) -) 17 gm PO TID [facility] Last Admin: 03/05/19 15:28 Dose: Not Given Tamsulosin HCl (Flomax -) 0.8 mg PO DAILY@0830 [facility] Last Admin: 03/05/19 09:05 Dose: 0.8 mg A/P Symptomatic Anemia r/o GI Bleed Esophageal Ca COPD Chronic Hypoxic and Hypercapneic Respiratory Failure HTN Atrial Fibrillation Liver Masses - monitor H/H - protonix - inhaled bronchodilators - o2 to keep Spo2 >90% - d/c planning
== END 2019-03-05 20:32 | disposition home or self-care (01) | DRG 374 ==
LOC: JER 10:32 → JERBED 12:08 → J4S 14:17
PROVIDERS: ADMIT Family Medicine; ATTEND Family Medicine
PROC: 30233N1 Transfusion of Nonautologous Red Blood Cells into Peripheral Vein, Percutaneous Approach (ICD-10-PCS; principal; 2019-02-24)
PROC: 0DD38ZX Extraction of Lower Esophagus, Via Natural or Artificial Opening Endoscopic, Diagnostic (ICD-10-PCS; 2019-03-02)
PROC: 0DBL8ZX Excision of Transverse Colon, Via Natural or Artificial Opening Endoscopic, Diagnostic (ICD-10-PCS; 2019-03-02)
DX: C15.5 Malignant neoplasm of lower third of esophagus (principal); J96.22 Acute and chronic respiratory failure with hypercapnia; J96.21 Acute and chronic respiratory failure with hypoxia; E43 Unspecified severe protein-calorie malnutrition; C78.7 Secondary malignant neoplasm of liver and intrahepatic bile duct; Z68.1 Body mass index [BMI] 19.9 or less, adult; R64 Cachexia; J43.9 Emphysema, unspecified; D50.9 Iron deficiency anemia, unspecified; Z99.81 Dependence on supplemental oxygen; I48.91 Unspecified atrial fibrillation; Z79.01 Long term (current) use of anticoagulants; I11.0 Hypertensive heart disease with heart failure; I50.9 Heart failure, unspecified; R13.10 Dysphagia, unspecified; D12.4 Benign neoplasm of descending colon; D12.3 Benign neoplasm of transverse colon; K57.30 Diverticulosis of large intestine without perforation or abscess without bleeding; K64.8 Other hemorrhoids; Z96.641 Presence of right artificial hip joint; Z87.891 Personal history of nicotine dependence; I25.10 Atherosclerotic heart disease of native coronary artery without angina pectoris; F03.90 Unspecified dementia, unspecified severity, without behavioral disturbance, psychotic disturbance, mood disturbance, and anxiety; F41.9 Anxiety disorder, unspecified; N40.0 Benign prostatic hyperplasia without lower urinary tract symptoms
CPT/HCPCS: 36415; 36430; 36511; 71045-TC-FY; 80048; 80053; 82105; 82272; 82378; 82550; 82728; 82803; 83010; 83540; 83550; 83615; 83735; 84100; 84443; 84466; 84484; 85025; 85027; 85044; 85610; 85730; 86301; 86850; 86900; 86901; 86922; 88305-TC; 88341-TC; 93005; 93010; 94640; 97116-GP; 97161-GP; 99284-25; J1756; P9038; P9058

== ENCOUNTER 2019-04-25 09:59 | Inpatient (IN) | payer OTHER, MEDICARE ==
[2019-04-25] MEDS ORDERED: DEXAMETHASONE SOD PHOSPHATE 10 MG/1 ML VIAL ONE (10:09)
[2019-04-25] MEDS ORDERED: ALBUTEROL SO4 2.5/IPRATROPIUM 0.5 INH SOL 3 ML VIAL.NEB. NEB ONE (10:09)
--- NOTE | 2019-04-25 10:27 | PDOC ---
Attending Attestation - Resident Resident Name: Mirta Iraheta - ED Attending Attestation I have performed the following: I have examined & evaluated the patient, The case was reviewed & discussed with the resident, I agree w/resident's findings & plan, Exceptions are as noted - HPI HPI: 04/25/19 12:18 73yo male with hx of esophageal ca and copd with increasing sob and increasing cough. Used nebulizer yesterday and then this AM was sob. Pt arrived via ambulance - received 3 duonebs and 10decadron captain room service. Pt states feeling better. Pt with productive cough -cream/light yellow colored sputum. Pt with diminished bs b/l. Pt speaking in full sentences. Pt is on 3L nc at home. Pt denies n/v/d. Pt with new dx of esophageal ca - perm cath to R chest wall. - Physicial Exam PE: 04/25/19 12:29 Gen: aaox3, tachy, tachypnic heart: +s1s2 irreg irreg tachy, R chest wall with port a cath in place lungs: diminished bs b/l, soft end expiratory wheezing upper lung vann abd: soft, nt/nd +bs ext: trace edema at ankles - Medical Decision Making 04/25/19 12:30 a/p: 73yo male with hx of copd and sob/cough today -received nebs and steroids in the ambulacne -pt with worsening cough/cough production -no f/c -last steroids were january -last admission january-february -concern for pna given increased sputum -will continue nebs, cxr, labs, cultures, abg -will monitor and reassess 04/25/19 12:31 poss infiltrate on cxr with ILD abx ordered -chronic resp acidosis with metabolic compensation -dr. mijares is pulm -dr. michelle is pmd -will obtain ct, will call kymber[facility] 04/25/19 12:32 pt appears dehydrated, will add ivf hydration 04/25/19 12:45 resident discussed the case with Dr. Michelle who accepts pt to service Heart Score/ECG Review - ECG Intrepretation Comment:: 04/25/19 10:26 afib w rvr at 111, nl axis, q waves anteroseptally, no acute st/t wave findings
[2019-04-25 11:22] LABS: BASO % 2.2 % (0-2.0); EOS % 2.9 % (0-4.5); HEMOGLOBIN 9.6 GM/dL (11.7-16.9); LYMPH % 3.4 % (8-40); MCH 23.8 pg (25.7-33.7); MEAN CELL VOLUME 76.7 fl (80-96); MEAN PLT VOLUME 8.4 fl (7.5-11.1); MONO % 4.5 % (3.8-10.2); PLATELET COUNT 316 K/MM3 (134-434); RBC 4.05 M/mm3 (4.00-5.60); RDW 23.9 % (11.9-15.9); WHITE BLOOD COUNT 13.5 K/mm3 (4.0-10.0)
[2019-04-25 11:29] LABS: ARTERIAL BLD GAS O2 SATURATION 90.1 % (95-98); ARTERIAL BLOOD GAS BASE EXCESS 9.9 meq/l (-2-2); ARTERIAL BLOOD GAS PCO2 57.9 mmHg (35-45); ARTERIAL BLOOD GAS pH 7.41 (7.35-7.45); CARBOXYHEMOGLOBIN 1.9 % (0-2)
[2019-04-25 11:30] LABS: ARTERIAL BLOOD GAS PO2 59.1 mmHg (80-100)
[2019-04-25 11:31] LABS: INR 1.13 (0.83-1.09); PROTHROMBIN TIME (PATIENT) 13.3 SEC (9.7-13.0)
[2019-04-25 11:31] LABS: ALLENS TEST POSITIVE
[2019-04-25 11:47] LABS: ANISOCYTOSIS 1+; MACROCYTOSIS 0; PLATELET ESTIMATE NORMAL; TEAR DROP CELLS 1+
[2019-04-25 11:50] LABS: ALBUMIN 2.4 g/dl (3.4-5.0); ALK PHOS 238 U/L (45-117); ANION GAP 5 MMOL/L (8-16); BILIRUBIN,TOTAL 0.5 mg/dL (0.2-1); BLOOD UREA NITROGEN 6.1 mg/dL (7-18); CALCIUM 8.3 mg/dL (8.5-10.1); CHLORIDE 93 mmol/L (98-107); CO2 36 mmol/L (21-32); CREATININE 0.4 mg/dL (0.55-1.3); GLUCOSE,RANDOM 107 mg/dL (74-106); POTASSIUM 4.4 mmol/L (3.5-5.1); SGOT/AST 43 U/L (15-37); SGPT/ALT 17 U/L (13-61); SODIUM 134 mmol/L (136-145); TOT PROT 6.9 g/dl (6.4-8.2)
[2019-04-25] MEDS ORDERED: PIPERACILLIN/TAZOB 4.5 GM 4.5 GM in DEXTROSE 5%-WATER 100 ML IVPB ONE (11:56)
[2019-04-25] MEDS ORDERED: VANCOMYCIN 1,250 MG in DEXTROSE 5%-WATER - 250 ML IVPB ONE (12:22)
[2019-04-25] MEDS ORDERED: ALBUTEROL SO4 0.083% IH SOL 2.5 MG/3 ML VIAL.NEB. NEB PRN (12:29)
--- NOTE | 2019-04-25 12:35 | PDOC ---
History of Present Illness - General Chief Complaint: Shortness of Breath Stated Complaint: DIFFICULTY BREATHING Time Seen by Provider: 04/25/19 10:21 History Source: Patient Exam Limitations: Other (poor historian) - History of Present Illness Initial Comments: Pt is a 73 yo M, with PMH of Afib (on eliquis and cardizem), HTN, COPD, esophageal adenocarcinoma (stage 4 with mets to liver), anemia, and BPH, who is presenting with complaints of SOB from baseline since last night, with increased sputum production and change of sputum color. SOB is worse on exertion and pt had difficulty ambulating around the house today. Pt states he did not take any nebulizer treatments this morning or last night before EMS arrival, and has not been on prednisone taper since January 2019 (last admission). EMS provided 3 amp duoneb and 10 mg IV decadron. Pt denies any recent fevers/ chills, headache, vision changes, syncope, chest pain, palpitations, nausea/ vomiting, abdominal pain, urinary symptoms, diarrhea/constipation, blood in sputum or stool, or leg swelling. Allergies: YURI PCP: Dr. Ovalles/Viviana Cards: Dr. Brannon Pulm: Dr. Jordan Social: Pt denies any current cigarette, alcohol, or drug use. Pt denies any recent travel or sick contacts. Surgical: R picc line placed x4 days ago. Pt denies drainage from this site -- first chemo session next week. Family: no relevant history. 04/25/19 14:33 04/25/19 14:46 Past History - Travel Traveled outside of the country in the last 30 days: No Close contact w/someone who was outside of country & ill: No - Past Medical History Allergies/Adverse Reactions: Allergies Allergy/AdvReac Type Severity Reaction Status Date / Time No Known Allergies Allergy Verified 04/25/19 10:06 Home Medications: Ambulatory Orders Alprazolam [Xanax] 1 mg PO QID 03/06/18 Folic Acid 1 mg PO DAILY 03/06/18 Albuterol 2.5/Ipratropium 0.5 [Duoneb -] 1 vial NEB QID PRN 03/09/18 Diltiazem Cd [Cardizem Cd -] 120 mg PO DAILY #30 cap.cd.24h 03/19/18 Tamsulosin HCl [Flomax -] 0.8 mg PO DAILY@0830 30 Days #60 cap.er.24h 04/23/18 Albuterol 0.083% Nebulizer Verna [Ventolin 0.083% Nebulizer Soln -] 1 amp NEB Q4H PRN amp 12/29/18 Atenolol [Tenormin -] 25 mg PO DAILY 30 Days #30 tablet 12/29/18 Anemia: No Asthma: No Cancer: Yes Cardiac Disorders: Yes (A-fib) CVA: No COPD: Yes CHF: Yes Dementia: No Diabetes: No GI Disorders: No Disorders: Yes (BPH) HTN: Yes Hypercholesterolemia: No Liver Disease: No Seizures: No Thyroid Disease: No - Surgical History Abdominal Surgery: Yes (hernia) Appendectomy: Yes GI Surgery: No Lung Surgery: No Orthopedic Surgery: Yes (rt hip replacement) - Immunization History Immunization Up to Date: No - Psycho Social/Smoking Cessation Hx Smoking History: Former smoker Have you smoked in the past 12 months: No If you are a former smoker, when did you quit?: 1979 Information on smoking cessation initiated: No Hx Alcohol Use: No Drug/Substance Use Hx: No Substance Use Type: None Hx Substance Use Treatment: No Respiratory Specific PMHX - Complaint Specific PMHX Angina: No Bronchitis: Yes Pneumonia: Yes Pulmonary Embolus: No TB (Tuberculosis): No Review of Systems - Review of Systems Able to Perform ROS?: Yes Is the patient limited [place] proficient: No Constitutional: Yes: Weight Stable. No: Chills, Diaphoresis, Fever, Loss of Appetite, Malaise, Weakness HEENTM: No: Recent change in vision, Nose Congestion, Throat Pain, Throat Swelling, Difficulty Swallowing Respiratory: Yes: Cough, Shortness of Breath, SOB with Exertion, Productive cough. No: Orthopnea, SOB at Rest, Wheezing, Hemoptysis Cardiac (ROS): No: Chest Pain, Edema, Irregular Heart Rate, Lightheadedness, Palpitations, Syncope, Chest Tightness ABD/GI: No: Constipated, Diarrhea, Nausea, Poor Appetite, Poor Fluid Intake, Vomiting : No: Burning, Dysuria, Frequency, Flank Pain, Pain, Urgency Musculoskeletal: No: Back Pain, Joint Pain, Muscle Pain, Muscle Weakness Integumentary: No: Rash Neurological: No: Headache, Numbness, Paresthesia, Weakness, Unsteady Gait, Dizziness Psychiatric: No: Sleep Pattern Change, Change in Appetite Endocrine: No: Increased Urine, Change in Weight Hematologic/Lymphatic: Yes: Anemia. No: Blood Clots, Easy Bleeding, Easy Bruising All Other Systems: Reviewed and Negative *Physical Exam - Vital Signs Last Vital Signs Temp Pulse Resp BP Pulse Ox 98.6 F 93 H 16 119/69 98 04/25/19 10:08 04/25/19 10:04 04/25/19 10:04 04/25/19 10:04 04/25/19 10:04 - Physical Exam Comments: Vitals stable, O2 98% on 2L NC, pt afebrile. Pt in NAD, able to sit up in the bed and speaking in full sentences. Thin body habitus. Pt alert and oriented x3. Poor historian and poor insight into disease process. drosser generally intact, muscular strength and sensation intact. No midline spinal tenderness, step-offs, or crepitus. Head normocephalic, atraumatic. Eyes PERRLA, EOMI. Oropharynx without erythema or exudates, no LAD b/l. No nasal congestion. Hearing intact. Clear heart sounds, S1/S2, no JVD, b/l pedal edema, or heart murmur. Coarse breath sounds with end expiratory wheezing, focally diminished b/l lung bases. No intercostal use or active respiratory distress. No abdominal or CVA tenderness to palpation, no rebound, no guarding. Abdomen soft, non-distended, and with normoactive bowel sounds. Skin without jaundice or rash. 04/25/19 14:47 ED Treatment Course - LABORATORY CBC & Chemistry Diagram: 04/25/19 11:00 04/25/19 11:00 - ADDITIONAL ORDERS Additional order review: Laboratory Results 04/25/19 04/25/19 04/25/19 11:15 11:00 11:00 PT with INR 13.30 H INR 1.13 H Anticoagulation Therapy No Result Required. Puncture Site Right radial ABG pH 7.41 ABG pCO2 at Pt Temp 57.9 H ABG pO2 at Pt Temp 59.1 L ABG HCO3 35.7 H ABG O2 Sat (Measured) 90.1 L ABG O2 Content No Result Required. ABG Base Excess 9.9 H Tiago Test Positive Carboxyhemoglobin 1.9 Methemoglobin < 1.0 O2 Delivery Device N/c Oxygen Flow Rate 3l Vent Mode No Result Required. Vent Rate No Result Required. Mechanical Rate No Result Required. Pressure Support Vent No Result Required. Sodium 134 L Potassium 4.4 Chloride 93 L Carbon Dioxide 36 H Anion Gap 5 L BUN 6.1 L Creatinine 0.4 L Est GFR (CKD-EPI)AfAm 134.66 Est GFR (CKD-EPI)NonAf 116.19 Random Glucose 107 H Calcium 8.3 L Total Bilirubin 0.5 AST 43 H ALT 17 Alkaline Phosphatase 238 H Creatine Kinase 96 Troponin I < 0.02 Total Protein 6.9 Albumin 2.4 L 04/25/19 11:00 RBC 4.05 MCV 76.7 L MCHC 31.0 L RDW 23.9 H MPV 8.4 Neutrophils % 87.0 H Lymphocytes % 3.4 L D Monocytes % 4.5 Eosinophils % 2.9 Basophils % 2.2 H D Medical Decision Making - Medical Decision Making Pt was seen at bedside, also will be seen by attending Dr. Jaime. Pt presenting with complaints of SOB from baseline, difficulty with ambulation and performing daily tasks, worsening sputum and change of color from baseline. PT stable on 2 L NC, no active respiratory distress requiring further oxygenation interventions. Will evaluate for COPD exacerbation vs pleural effusion/ pneumothorax vs ACS vs infection (pneumonia). Pt received duonebs and steroids via EMS. Provided gentle hydration and PRN albuterol nebulizer for wheezing as needed. Will continue to reassess pt and monitor for symptomatic improvement. ECG: Afib with RVR (HR 111, QRS 68, QTc 424). No TWIs or significant ST segment changes. No significant changes from prior ECG. 04/25/19 14:53 CBC: WBC 13 CMP: CO2 36 ABG: pH 7.41, CO2 57, O2 59 -- normal pH, elevated CO2 on chemistry, low o2 -- compensated resp acidosis Trop <.02 and no ECG changes Chest x-ray with superimposed consolidation on infiltrates. -- treating as HAP ( vanc, zosyn, azithromycin) Pt admitted to PCP team (Dr. Michelle) for IV antibiotics. Pt with Stage 4 cancer, requiring chemotx starting next week, needs inpatient abx due to COPD exacerbation with superimposed pneumonia and immunocompromise. Pt resting comfortably post-interventions. 04/25/19 14:59 Discharge - Discharge Information Problems reviewed: Yes Clinical Impression/Diagnosis: COPD exacerbation, Adenocarcinoma of esophagus, stage 4 Pneumonia Qualifiers: Pneumonia type: due to unspecified organism Laterality: left Lung location: lower lobe of lung Qualified Code(s): J18.1 - Lobar pneumonia, unspecified organism Condition: Stable - Admission Yes - Follow up/Referral - Patient Discharge Instructions - Post Discharge Activity
[2019-04-25] MEDS ORDERED: AZITHROMYCIN IVPB 500 MG in DEXTROSE 5%-WATER - 250 ML IVPB ONE (12:36)
[2019-04-25] MEDS ORDERED: APIXABAN 5 MG TABLET ONE (12:53)
[2019-04-25] MEDS ORDERED: ALBUTEROL SO4 2.5/IPRATROPIUM 0.5 INH SOL 3 ML VIAL.NEB. NEB PRN (13:05)
[2019-04-25] MEDS: APIXABAN 5 MG TABLET PO SCH ×3 (13:09→22:01)
[2019-04-25] MEDS ORDERED: ATENOLOL 25 MG TABLET (FP) PO ONE (13:10)
[2019-04-25] MEDS ORDERED: PIPERACILLIN/TAZOB 4.5 GM 4.5 GM/100 ML BAG IVPB ONE (13:11)
[2019-04-25] MEDS ORDERED: ATENOLOL 25 MG TABLET (FP) ONE (13:11)
[2019-04-25] MEDS ORDERED: METOCLOPRAMIDE HCL 10 MG TABLET (FP) PO SCH (13:15)
[2019-04-25] MEDS ORDERED: AZITHROMYCIN IVPB 500 MG/250 ML BAG IVPB ONE (13:24)
[2019-04-25] MEDS ORDERED: VANCOMYCIN 500 MG VIAL (RESTRICTED TO ID ONLY) ONE (13:24)
[2019-04-25] MEDS ORDERED: VANCOMYCIN 1 GRAM (PRE-DOCKED) 1,000 MG/250 ML BAG IVPB ONE (13:24)
[2019-04-25 15:59] LABS: EPI CELLS 9.9 /HPF (0-5/HPF); HYALINE CASTS 27 /lpf (0-8); PH,URINE 5.5 (5.0-8.0); URINE APPEARANCE CLEAR; URINE BACTERIA 0.8 /hpf (NEGATIVE); URINE BILIRUBIN NEGATIVE (NEGATIVE); URINE COLOR YELLOW; URINE GLUCOSE (UA) NEGATIVE (NEGATIVE); URINE KETONE NEGATIVE (NEGATIVE); URINE LEUK ESTERASE 2+ (NEGATIVE); URINE NITRITE NEGATIVE (NEGATIVE); URINE PROTEIN NEGATIVE (NEGATIVE); URINE RBC 2 /hpf (0-4); URINE WBC 49 /hpf (0-5)
[2019-04-25] MEDS: SODIUM CHLORIDE 1,000 ML IV SCH (16:13)
[2019-04-25 16:23] LABS: YEAST MODERATE (NEGATIVE)
[2019-04-25] MEDS: ALPRAZolam 1 MG TABLET PO SCH ×3 (16:39→21:57)
--- NOTE | 2019-04-25 16:46 | EKG ---
Test Reason : Blood Pressure : / mmHG Vent. Rate : 111 BPM Atrial Rate : 170 BPM P-R Int : 000 ms QRS Dur : 068 ms QT Int : 312 ms P-R-T Axes : 000 -07 071 degrees QTc Int : 424 ms ATRIAL FIBRILLATION WITH RAPID VENTRICULAR RESPONSE INITIALLY CONVERTED TO SINUS RHYTHM AND APC ANTEROSEPTAL INFARCT (CITED ON OR BEFORE 15-APR-2018) ABNORMAL ECG WHEN COMPARED WITH ECG OF 24-FEB-2019 10:34, ATRIAL FIBRILLATION HAS REPLACED SINUS RHYTHM PVC IS NO LONGER SEEN Confirmed by MARIA ELENA PEACOCK MD ([id number]) on 04/25/2019 4:45:48 PM Referred By: Confirmed By:MARIA ELENA PEACOCK MD
[2019-04-25] MEDS: methylPREDNISolone NA SUCC 40 MG/1 ML VIAL IVPUSH SCH (17:56)
[2019-04-26] MEDS: methylPREDNISolone NA SUCC 40 MG/1 ML VIAL IVPUSH SCH ×3 (01:39→17:59)
[2019-04-26] MEDS: ALBUTEROL SO4 2.5/IPRATROPIUM 0.5 INH SOL 3 ML VIAL.NEB. NEB SCH ×4 (07:35→20:22)
[2019-04-26 08:14] LABS: HEMATOCRIT 33.4 % (35.4-49); HEMOGLOBIN 10.4 GM/dL (11.7-16.9); MCH 24.1 pg (25.7-33.7); MCHC 31.1 g/dl (32.0-35.9); MEAN CELL VOLUME 77.4 fl (80-96); MEAN PLT VOLUME 8.2 fl (7.5-11.1); PLATELET COUNT 349 K/MM3 (134-434); RBC 4.31 M/mm3 (4.00-5.60); RDW 24.5 % (11.9-15.9); WHITE BLOOD COUNT 7.5 K/mm3 (4.0-10.0)
[2019-04-26 08:44] LABS: ALBUMIN 2.5 g/dl (3.4-5.0); BILIRUBIN,TOTAL 0.4 mg/dL (0.2-1); BLOOD UREA NITROGEN 10.8 mg/dL (7-18); CALCIUM 8.6 mg/dL (8.5-10.1); CREATININE 0.4 mg/dL (0.55-1.3); POTASSIUM 4.5 mmol/L (3.5-5.1)
--- NOTE | 2019-04-26 09:30 | PN ---
Progress Note (short form) - Note Progress Note: ID consult dictated 73 yo former smoker, history of COPD on home oxygen recently diagnosed in February 2019 with stage 4 Esophageal Cancer with liver mets admitted with SOB he has not been in to see his PMD since discharge from the hospital saw the oncologist at [facility] and is to start treatment soon port placed last week no fever history of MRSA in the sputum 2018 notes thick sputum production poor appetite no vomiting no steroids or antiibotics as outpt ?aspiration pneumonia ?CAP coped home oxygen stage 4 esophageal cancer contact isolation f/u chest ct continue vanco/zosyn f/u cultures ?swallowing evaluation Problem List - Problems (1) Pneumonia Code(s): J18.9 - PNEUMONIA, UNSPECIFIED ORGANISM Qualifiers: Pneumonia type: due to unspecified organism Laterality: left Lung location: lower lobe of lung Qualified Code(s): J18.1 - Lobar pneumonia, unspecified organism (2) COPD exacerbation Code(s): J44.1 - CHRONIC OBSTRUCTIVE PULMONARY DISEASE W (ACUTE) EXACERBATION (3) Adenocarcinoma of esophagus, stage 4 Code(s): C15.9 - MALIGNANT NEOPLASM OF ESOPHAGUS, UNSPECIFIED
[2019-04-26] MEDS: TAMSULOSIN HCL 0.4 MG CAP PO SCH (09:44)
[2019-04-26] MEDS ORDERED: VANCOMYCIN 1 GRAM (PRE-DOCKED) 1,000 MG/250 ML BAG IVPB SCH (10:00)
--- NOTE | 2019-04-26 10:13 | CONSULT ---
Consult Consult Specialty:: Pulmonology Referred by:: Dr Dominguez Reason for Consultation:: COPD - History of Present Illness Chief Complaint: Worsening SOB x 1 day History of Present Illness: Pt is a 73 yo M, with PMH of Afib (on eliquis and cardizem), HTN, COPD, esophageal adenocarcinoma (stage 4 with mets to liver), anemia, and BPH, who is presenting from home with one day hx worsening SOB last night. Pt reports having difficulty bringing up very thick sputum, no hemoptysis, occassional cough. No fevers, no chills. Pt reports SOB at rest, with recent limitation of movement. No leg swelling, no chest pain. Pt denies dysphagia, or regurgitation of food. He still eats solid food-chicken. Pt is to start chemotherapy next week , already has a R port inserted and follows and oncologist at [facility]. His initaial diagnosis of esophageal cancer was 09/15 at which time he had refused further workup/mx. He was noted to have metastasis to liver in 2018 and agreed then to have palliative chemotx and radiation tx. Since 11/2018, pt has been unable to follow up as an outpatient due to transportation issues. 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: Dementia (mild to moderate) Cardio/Vascular: Yes: AFIB, HTN Pulmonary: Yes: Bronchitis, COPD, O2 Dependent, Pneumonia Infectious Disease: Yes: MRSA (hx) Psych: Yes: Anxiety, Panic Musculoskeletal: Yes: Osteoarthritis Dermatology: Yes: Other (B/L feet scars/ scratches) - Past Surgical History Past Surgical History: Yes: Appendectomy, Hernia Repair, Permanent Pacemaker - Alcohol/Substance Use Hx Alcohol Use: No - Smoking History Smoking history: Former smoker Have you smoked in the past 12 months: No If you are a former smoker, when did you quit?: 1979 - Social History History of Recent Travel: No Home Medications - Allergies Allergies/Adverse Reactions: Allergies Allergy/AdvReac Type Severity Reaction Status Date / Time No Known Allergies Allergy Verified 04/25/19 10:06 - Home Medications Home Medications: Ambulatory Orders Alprazolam [Xanax] 1 mg PO QID 03/06/18 Folic Acid 1 mg PO DAILY 03/06/18 Albuterol 2.5/Ipratropium 0.5 [Duoneb -] 1 vial NEB QID PRN 03/09/18 Diltiazem Cd [Cardizem Cd -] 120 mg PO DAILY #30 cap.cd.24h 03/19/18 Tamsulosin HCl [Flomax -] 0.8 mg PO DAILY@0830 30 Days #60 cap.er.24h 04/23/18 Albuterol 0.083% Nebulizer Verna [Ventolin 0.083% Nebulizer Soln -] 1 amp NEB Q4H PRN amp 12/29/18 Atenolol [Tenormin -] 25 mg PO DAILY 30 Days #30 tablet 12/29/18 Review of Systems - Review of Systems Constitutional: denies: Chills, Fever, Loss of Appetite HENT: denies: Throat Pain Cardiovascular: reports: Shortness of Breath. denies: Chest Pain, Edema, Palpitations Respiratory: reports: Cough, SOB. denies: Hemoptysis, Wheezing Gastrointestinal: denies: Abdominal Pain, Rectal Bleeding Genitourinary: denies: Burning, Dysuria Neurological: denies: Change in LOC, Confusion, Seizure Physical Exam Vital Signs: Vital Signs Temperature 97.8 F 04/26/19 02:00 Pulse Rate 55 L 04/26/19 06:00 Respiratory Rate 19 04/26/19 06:00 Blood Pressure 135/61 04/26/19 06:00 O2 Sat by Pulse Oximetry (%) 92 L 04/25/19 21:00 Constitutional: Yes: No Distress, Calm, Cachectic Eyes: Yes: Conjunctiva Clear. No: Sclera Icterus HENT: No: Thrush, Other (Poor dentition, small and missing teeth) Neck: Yes: Supple Cardiovascular: Yes: S1, S2 Respiratory: Yes: Diminished, Rales (R lung base on R) Gastrointestinal: Yes: Soft, Hypoactive Bowel Sounds Edema: No Peripheral Pulses WNL: Yes Neurological: Yes: Alert, Oriented ...Motor Strength: WNL Psychiatric: Yes: Alert, Oriented Labs: CBC, BMP 04/26/19 07:07 04/26/19 07:07 Imaging - Results Chest X-ray: Report Reviewed, Image Reviewed Cat Scan: Image Reviewed Assessment/Plan Ambulatory Orders Alprazolam [Xanax] 1 mg PO QID 03/06/18 Folic Acid 1 mg PO DAILY 03/06/18 Albuterol 2.5/Ipratropium 0.5 [Duoneb -] 1 vial NEB QID PRN 03/09/18 Diltiazem Cd [Cardizem Cd -] 120 mg PO DAILY #30 cap.cd.24h 03/19/18 Tamsulosin HCl [Flomax -] 0.8 mg PO DAILY@829 30 Days #60 cap.er.24h 04/23/18 Albuterol 0.083% Nebulizer Verna [Ventolin 0.083% Nebulizer Soln -] 1 amp NEB Q4H PRN amp 12/29/18 Atenolol [Tenormin -] 25 mg PO DAILY 30 Days #30 tablet 12/29/18 Current Medications Albuterol Sulfate (Ventolin 0.083% Nebulizer Soln -) 1 amp NEB RQ4H PRN PRN Reason: ASTHMA Albuterol/Ipratropium (Duoneb -) 1 amp NEB Q4H PRN PRN Reason: SHORTNESS OF BREATH Albuterol/Ipratropium (Duoneb -) 1 amp NEB RQID [facility] Last Admin: 04/26/19 07:35 Dose: 1 amp Alprazolam (Xanax) 1 mg PO QID [facility] Last Admin: 04/26/19 10:43 Dose: 1 mg Apixaban (Eliquis -) 5 mg PO BID [facility] Last Admin: 04/26/19 10:44 Dose: Not Given Diltiazem HCl (Cardizem Cd -) 120 mg PO DAILY [facility] Last Admin: 04/26/19 10:43 Dose: 120 mg Folic Acid (Folic Acid -) 1 mg PO DAILY [facility] Last Admin: 04/26/19 10:43 Dose: 1 mg Sodium Chloride (Normal Saline -) 1,000 mls @ 125 mls/hr IV ASDIR [facility] Last Admin: 04/25/19 16:13 Dose: Not Given Piperacillin Sod/Tazobactam (Sod 4.5 gm/ Dextrose) 100 mls @ 200 mls/hr IVPB Q8H-IV GE; Protocol Vancomycin HCl (Vancomycin (Pre-Docked)) 1,000 mg in 250 mls @ 166.667 mls/hr IVPB DAILY GE; Protocol Last Admin: 04/26/19 10:48 Dose: 166.667 mls/hr Methylprednisolone Sodium Succinate (Solu-Medrol -) 40 mg IVPUSH Q8H-IV GE Metoclopramide HCl (Reglan -) 10 mg PO ASDIR GE Pantoprazole Sodium (Protonix -) 40 mg PO DAILY GE Last Admin: 04/26/19 10:43 Dose: 40 mg Polyethylene Glycol (Miralax (For Daily Use) -) 17 gm PO DAILY GE Tamsulosin HCl (Flomax -) 0.8 mg PO DAILY@0830 GE Last Admin: 04/26/19 09:44 Dose: 0.8 mg Assessment/Plan: Pt is a 73 yo M, with PMH of Afib (on eliquis and cardizem), HTN, COPD, esophageal adenocarcinoma (stage 4 with mets to liver), anemia, and BPH, who is presenting from home with one day hx worsening SOB last night Afib (on eliquis and cardizem), HTN, COPD, esophageal adenocarcinoma (stage 4 with mets to liver), anemia, BPH SOB leucocytosis R/O PNA Acute hypoxic respiratory failure Plan: Pt still on solid diet although he denies aspiration, had been offered GT option in the past that he refused Pending CT formal read, compared to prior CT, pleural effusions resolved and basal changes improved Pending sputum cx- empiric coverage with Vanc- prior MRSA in sputum in past- ID on board Prior Pseudomonas UTI in past- cont zosyn pending cx Reduce solumed from 80mg Q8H to 40mg Q8H Cont nebulizer treatment Will hold off mucinex at this time- to avoid drying of secretions Cont supplement oxygen therapy to maintain sats >90% Aspiration precautions Would consider Speech and swallow eval Other mx per primary team D/W Dr Johnny Sandoval MD PGY 3 Visit type - Emergency Visit Emergency Visit: Yes ED Registration Date: 04/25/19 Care time: The patient presented to the Emergency Department on the above date and was hospitalized for further evaluation of their emergent condition. - New Patient This patient is new to me today: Yes Date on this admission: 04/26/19 - Critical Care Critical Care patient: No ATTENDING PHYSICIAN STATEMENT I saw and evaluated the patient. I reviewed the resident's note and discussed the case with the resident. I agree with the resident's findings and plan as documented. SUBJECTIVE: OBJECTIVE: ASSESSMENT AND PLAN:
[2019-04-26] MEDS ORDERED: DEXTROSE 5%-WATER 100 ML IVPB ONE ×2 (10:30→17:45)
[2019-04-26] MEDS ORDERED: PIPERACILLIN/TAZOBACTAM 4.5 GM VIAL IVPB ONE ×2 (10:30→17:45)
--- NOTE | 2019-04-26 10:31 | HP ---
Admitting History and Physical - Admission History of Present Illness: Pt is a 73 yo M, with PMH of Afib (on eliquis and cardizem), HTN, COPD, esophageal adenocarcinoma (stage 4 with mets to liver), anemia, and BPH, with cognitive decline --( mild-mod dementia ) who is presenting with complaints of SOB from baseline since last night, with increased sputum production and change of sputum color. SOB is worse on exertion and pt had difficulty ambulating around the house today. Pt states he did not take any nebulizer treatments this morning or last night before EMS arrival, and has not been on prednisone taper since January 2019 (last admission). EMS provided 3 amp duoneb and 10 mg IV decadron. Pt denies any recent fevers/chills, headache, vision changes, syncope , chest pain, palpitations, nausea/vomiting, abdominal pain, urinary symptoms, diarrhea/constipation, blood in sputum or stool, or leg swelling. Port placed 4 days prior to admission with plans for chemotherapy. 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: Dementia (mild to moderate) Cardiovascular: Yes: AFIB, HTN Pulmonary: Yes: Bronchitis, COPD, O2 Dependent, Pneumonia Heme/Onc: Yes: Anemia, Other (esophageal Carcinoma with mets) Infectious Disease: Yes: MRSA (hx) Psych: Yes: Anxiety, Panic Musculoskeletal: Yes: Osteoarthritis Dermatology: Yes: Other (B/L feet scars/ scratches) - Past Surgical History Past Surgical History: Yes: Appendectomy, Hernia Repair, Permanent Pacemaker - Smoking History Smoking history: Former smoker Have you smoked in the past 12 months: No If you are a former smoker, when did you quit?: 1979 - Alcohol/Substance Use Hx Alcohol Use: No - Social History Usual Living Arrangement: Yes: With Spouse ADL: Support Services History of Recent Travel: No Home Medications - Allergies Allergies/Adverse Reactions: Allergies Allergy/AdvReac Type Severity Reaction Status Date / Time No Known Allergies Allergy Verified 04/25/19 10:06 - Home Medications Home Medications: Ambulatory Orders Alprazolam [Xanax] 1 mg PO QID 03/06/18 Folic Acid 1 mg PO DAILY 03/06/18 Albuterol 2.5/Ipratropium 0.5 [Duoneb -] 1 vial NEB QID PRN 03/09/18 Diltiazem Cd [Cardizem Cd -] 120 mg PO DAILY #30 cap.cd.24h 03/19/18 Tamsulosin HCl [Flomax -] 0.8 mg PO DAILY@0830 30 Days #60 cap.er.24h 04/23/18 Albuterol 0.083% Nebulizer Verna [Ventolin 0.083% Nebulizer Soln -] 1 amp NEB Q4H PRN amp 12/29/18 Atenolol [Tenormin -] 25 mg PO DAILY 30 Days #30 tablet 12/29/18 Review of Systems - Review of Systems Constitutional: reports: Loss of Appetite, Unintentional Wgt. Loss. denies: Chills, Fever Eyes: reports: No Symptoms HENT: reports: Difficult Swallowing Neck: reports: No Symptoms Cardiovascular: reports: No Symptoms Respiratory: reports: Orthopnea, SOB, SOB on Exertion Gastrointestinal: reports: Indigestion, Nausea Genitourinary: reports: No Symptoms Breasts: reports: No Symptoms Reported Musculoskeletal: reports: Joint Pain, Joint Swelling, Muscle Weakness Neurological: reports: Pre-Existing Deficit, Unsteady Gait, Weakness Endocrine: reports: No Symptoms Hematology/Lymphatic: reports: No Symptoms Psychiatric: reports: No Symptoms, Anxiety, Depression Physical Examination Vital Signs: Vital Signs Temperature 97.8 F 04/26/19 02:00 Pulse Rate 55 L 04/26/19 06:00 Respiratory Rate 04/26/19 06:00 Blood Pressure 135/61 04/26/19 06:00 O2 Sat by Pulse Oximetry (%) 92 L 04/25/19 21:00 Labs: CBC, BMP 04/26/19 07:07 04/26/19 07:07 Problem List - Problems (1) Adenocarcinoma of esophagus, stage 4 Code(s): C15.9 - MALIGNANT NEOPLASM OF ESOPHAGUS, UNSPECIFIED (2) COPD exacerbation Code(s): J44.1 - CHRONIC OBSTRUCTIVE PULMONARY DISEASE W (ACUTE) EXACERBATION (3) Pneumonia Code(s): J18.9 - PNEUMONIA, UNSPECIFIED ORGANISM Qualifiers: Pneumonia type: aspiration pneumonia Aspiration pneumonia type: due to regurgitated food Laterality: left Lung location: lower lobe of lung Qualified Code(s): J69.0 - Pneumonitis due to inhalation of food and vomit (4) Acute on chronic respiratory failure with hypoxia and hypercapnia Code(s): J96.21 - ACUTE AND CHRONIC RESPIRATORY FAILURE WITH HYPOXIA; J96.22 - ACUTE AND CHRONIC RESPIRATORY FAILURE WITH HYPERCAPNIA (5) Anemia Code(s): D64.9 - ANEMIA, UNSPECIFIED Qualifiers: Anemia type: iron deficiency (6) Dysphagia Code(s): R13.10 - DYSPHAGIA, UNSPECIFIED (7) Liver masses Code(s): R16.0 - HEPATOMEGALY, NOT ELSEWHERE CLASSIFIED (8) MRSA (methicillin resistant Staphylococcus aureus) carrier Code(s): Z22.322 - CARRIER OR SUSPECTED CARRIER OF METHICILLIN RESIS STAPH (9) Metastatic cancer Code(s): C79.9 - SECONDARY MALIGNANT NEOPLASM OF UNSPECIFIED SITE (10) Severe protein-calorie malnutrition Code(s): E43 - UNSPECIFIED SEVERE PROTEIN-CALORIE MALNUTRITION (11) Weight loss Code(s): R63.4 - ABNORMAL WEIGHT LOSS (12) Atrial fibrillation Code(s): I48.91 - UNSPECIFIED ATRIAL FIBRILLATION Qualifiers: (13) Coronary artery disease Code(s): I25.10 - ATHSCL HEART DISEASE OF [place] CORONARY ARTERY W/O ANG PCTRS Qualifiers:
[2019-04-26] MEDS: ALPRAZolam 1 MG TABLET PO SCH ×3 (10:43→18:00)
[2019-04-26] MEDS: FOLIC ACID 1 MG TABLET (FP) PO SCH (10:43)
[2019-04-26] MEDS: PANTOPRAZOLE 40 MG TABLET (FP) PO SCH (10:43)
[2019-04-26] MEDS: APIXABAN 5 MG TABLET PO SCH ×2 (10:44→21:16)
[2019-04-26] MEDS: POLYETHYLENE GLYCOL 3350 119 GM BTL PO SCH (10:51)
[2019-04-26] MEDS: PIPERACILLIN/TAZOB 4.5 GM 4.5 GM in DEXTROSE 5%-WATER 100 ML IVPB SCH ×2 (11:25→18:00)
--- NOTE | 2019-04-26 11:38 | CONS ---
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 He was here from the to the 05 of March. He had prior anemia and probable liver metastases noted earlier in 2018 but had refused workup including colonoscopy and liver biopsy. He was then after discharge referred to [facility] where he had a port placed and was to start treatment next week. Over the week, he has had intermittent shortness of breath since discharge home. He has been using his nebulizer machine frequently. He reports thick sputum production. He has not been in to see his primary care doctor. He denies any fevers or chills. He denies any travel. He has no chest pain. He denies any vomiting, diarrhea, or dysuria. PAST MEDICAL HISTORY: Notable for COPD. He has been on home oxygen now for several months. He has a history of atrial fibrillation, hypertension, stage 4 esophageal cancer with liver metastases, anemia, and BPH. SURGICAL HISTORY: Notable for hernia repair. He has had an appendectomy and a right hip replacement. ALLERGIES: No known drug allergies. MEDICATIONS: At home include alprazolam, folic acid, DuoNeb, diltiazem, tamsulosin, and atenolol. Of note, he has not been on any recent steroids or antibiotic since his discharge on the home. SOCIAL HISTORY: He is . He lives with his . He is retired. He stopped smoking 1 year ago. REVIEW OF SYSTEMS: Notable for weight loss, which he did not quantitate, chronic cough with thick sputum. No fevers or chills. Chronic shortness of breath. Patient is extremely poor historian. PHYSICAL EXAMINATION: Vital Signs: His temperature is 97.8, pulse of 55, blood pressure 135/61, respiratory rate is 19. He is saturating 92% on 3 L. He weighs 64 kg. HEENT: He is normocephalic. His eyes are anicteric. He has no thrush. He has very poor dentition with multiple broken teeth and stumps of teeth. Lungs: Very poor air movement. He has a harsh cough. Heart: Regular rate and rhythm. Abdomen: Soft, nontender. There is no palpable adenopathy. Extremities: Without edema. White count on admission was 13.5, currently 7.5, hemoglobin 10.4, platelets are 349. BUN 10, creatinine 0.4. LFTs are notable for an alkaline phosphatase of 224. Urinalysis has 2+ leukocytes with 49 white cells. Blood cultures are pending as well as his sputum culture. He has a chest x-ray that is notable for questionable alveolar patchy infiltrates, which cannot be excluded. Chest CT was done results of which are pending. He received in the emergency room vancomycin, Zosyn, and Zithromax as well as steroids and nebulizers. He has a history of MRSA in sputum in 2018. In summary, this is a 73-year-old man with stage 4 esophageal cancer, COPD on home oxygen admitted with worsening shortness of breath, possible aspiration pneumonia versus CAP. I would continue him on contact isolation, follow up the chest CT. Continue vancomycin and Zosyn given his MRSA colonization in the past as well as possible aspiration. Would follow up cultures and urinary antigens and consider a swallowing evaluation. Further recommendations to follow. Rivera [id number]
--- NOTE | 2019-04-26 12:09 | PN ---
Teaching Attending Note Name of Resident: Kristen Sandoval ATTENDING PHYSICIAN STATEMENT I saw and evaluated the patient. I reviewed the resident's note and discussed the case with the resident. I agree with the resident's findings and plan as documented. SUBJECTIVE: 73 M, Afib (on eliquis and cardizem), HTN, COPD, esophageal adenocarcinoma ( stage 4 with mets to liver), anemia, and BPH. Admitted via the ER due to worsening SOB x 1 day duration. He reports having very thick discolored sputum. No hemoptysis. He denies dysphagia, or regurgitation of food but does report some cough when eating. He is scheduled to start chemotherapy next week. No travel history or sick contacts. Constitutional: Yes: No Distress, Calm, Cachectic Eyes: Yes: Conjunctiva Clear. No: Sclera Icterus HENT: No: Thrush, Other (Poor dentition, small and missing teeth) Neck: Yes: Supple Cardiovascular: Yes: S1, S2 Respiratory: Yes: Diminished, Bibasilar rhonchi Right > Left Gastrointestinal: Yes: Soft, Hypoactive Bowel Sounds Edema: No Peripheral Pulses WNL: Yes Neurological: Yes: Alert, Oriented ...Motor Strength: WNL Psychiatric: Yes: Alert, Oriented Labs: Laboratory Results - last 24 hr 04/25/19 04/26/19 04/26/19 15:41 07:07 07:07 WBC 7.5 RBC 4.31 Hgb 10.4 L Hct 33.4 L MCV 77.4 L MCH 24.1 L MCHC 31.1 L RDW 24.5 H Plt Count 349 MPV 8.2 Sodium 134 L Potassium 4.5 Chloride 92 L Carbon Dioxide 36 H Anion Gap 6 L BUN 10.8 Creatinine 0.4 L Est GFR (CKD-EPI)AfAm 134.66 Est GFR (CKD-EPI)NonAf 116.19 Random Glucose 128 H Calcium 8.6 Total Bilirubin 0.4 AST 28 ALT 17 Alkaline Phosphatase 224 H Total Protein 7.0 Albumin 2.5 L TSH 0.55 D Urine Color Yellow Urine Appearance Clear Urine pH 5.5 Ur Specific [place] 1.014 Urine Protein Negative Urine Glucose (UA) Negative Urine Ketones Negative Urine Blood Negative Urine Nitrite Negative Urine Bilirubin Negative Urine Urobilinogen 1.0 Ur Leukocyte Esterase 2+ H Urine WBC (Auto) 49 Urine RBC (Auto) 2 Urine Casts (Auto) 27 U Epithel Cells (Auto) 9.9 Urine Bacteria (Auto) 0.8 Urine Yeast (Auto) Moderate Assessment/Plan: AE of COPD Chronic bronchitis R/O Micro-aspiration AFib HTN Esophageal adenocarcinoma (stage 4 with mets to liver), anemia, BPH SOB leucocytosis R/O PNA Acute hypoxic respiratory failure Plan: GI evaluation Consider formal Swallow evaluation Check official CT read Noted empiric ABX Follow sputum cultures Reduce medrol dose O2 as needed to maintain saturation Aspiration precautions Dr Turner
[2019-04-26] MEDS: SODIUM CHLORIDE 1,000 ML IV SCH (15:52)
[2019-04-26] MEDS: ALPRAZolam 1 MG TABLET PO PRN (23:10)
[2019-04-27] MEDS ORDERED: DEXTROSE 5%-WATER 100 ML IVPB ONE ×3 (01:03→16:59)
[2019-04-27] MEDS ORDERED: PIPERACILLIN/TAZOBACTAM 4.5 GM VIAL IVPB ONE ×3 (01:03→16:59)
[2019-04-27] MEDS: methylPREDNISolone NA SUCC 40 MG/1 ML VIAL IVPUSH SCH ×3 (01:30→17:17)
[2019-04-27] MEDS: PIPERACILLIN/TAZOB 4.5 GM 4.5 GM in DEXTROSE 5%-WATER 100 ML IVPB SCH ×3 (01:30→17:16)
[2019-04-27 07:12] LABS: BASO % 0.1 % (0-2.0); HEMATOCRIT 28.5 % (35.4-49); HEMOGLOBIN 8.9 GM/dL (11.7-16.9); LYMPH % 4.1 % (8-40); MCH 23.5 pg (25.7-33.7); MCHC 31.2 g/dl (32.0-35.9); MEAN CELL VOLUME 75.4 fl (80-96); MEAN PLT VOLUME 8.7 fl (7.5-11.1); MONO % 3.3 % (3.8-10.2); NEUT % 92.5 % (42.8-82.8); PLATELET COUNT 309 K/MM3 (134-434); RBC 3.77 M/mm3 (4.00-5.60); WHITE BLOOD COUNT 11.7 K/mm3 (4.0-10.0)
[2019-04-27 07:39] LABS: BLOOD UREA NITROGEN 13.4 mg/dL (7-18); CALCIUM 8.2 mg/dL (8.5-10.1); CREATININE 0.5 mg/dL (0.55-1.3); POTASSIUM 4.2 mmol/L (3.5-5.1)
[2019-04-27] MEDS: ALBUTEROL SO4 2.5/IPRATROPIUM 0.5 INH SOL 3 ML VIAL.NEB. NEB SCH ×4 (08:00→20:47)
[2019-04-27] MEDS: TAMSULOSIN HCL 0.4 MG CAP PO SCH (08:55)
[2019-04-27] MEDS: FOLIC ACID 1 MG TABLET (FP) PO SCH (09:02)
[2019-04-27] MEDS: ALPRAZolam 1 MG TABLET PO PRN ×3 (09:02→21:37)
[2019-04-27] MEDS: PANTOPRAZOLE 40 MG TABLET (FP) PO SCH (09:02)
[2019-04-27] MEDS: APIXABAN 5 MG TABLET PO SCH (09:03)
[2019-04-27] MEDS: POLYETHYLENE GLYCOL 3350 119 GM BTL PO SCH (09:03)
[2019-04-27 09:35] LABS: ANISOCYTOSIS 1+; MACROCYTOSIS 0; PLATELET ESTIMATE NORMAL
--- NOTE | 2019-04-27 11:02 | PN ---
Progress Note (short form) - Note Progress Note: sitting in bed comfortable reports feeling better Vital Signs Period Temp Pulse Resp BP Sys/Cleaning Pulse Ox Last 24 Hr 97.0 F-98.4 F 57-78 16-18 119-135/49-62 97-97 neck supple dry dressing to port site -no signs of bleeding heart s1/S2 irreg lungs decreased BS no wheezing abd soft ext + edema CBC, BMP 04/27/19 06:30 04/27/19 06:30 Microbiology 04/25/19 11:00 Blood - Peripheral Venous Blood Culture - Preliminary NO GROWTH OBTAINED AFTER 24 HOURS, INCUBATION TO CONTINUE FOR 4 DAYS. 04/25/19 13:00 Blood - Peripheral Venous Blood Culture - Preliminary NO GROWTH OBTAINED AFTER 24 HOURS, INCUBATION TO CONTINUE FOR 4 DAYS. 04/25/19 13:20 Sputum - Expectorated Gram Stain - Final 04/25/19 13:20 Sputum - Expectorated Sputum Culture - Preliminary NORMAL RESPIRATORY YECENIA 04/25/19 15:41 Urine For Antigen Detection Legionella Antigen - Final 04/25/19 15:41 Urine For Antigen Detection Streptococcus pneumoniae Antigen (M - Final Active Medications Albuterol Sulfate (Ventolin 0.083% Nebulizer Soln -) 1 amp NEB RQ4H PRN PRN Reason: ASTHMA Albuterol/Ipratropium (Duoneb -) 1 amp NEB Q4H PRN PRN Reason: SHORTNESS OF BREATH Albuterol/Ipratropium (Duoneb -) 1 amp NEB RQID [facility] Last Admin: 04/27/19 08:00 Dose: 1 amp Alprazolam (Xanax) 1 mg PO Q6H PRN PRN Reason: ANXIETY Last Admin: 04/27/19 09:02 Dose: 1 mg Apixaban (Eliquis -) 5 mg PO BID [facility] Last Admin: 04/27/19 09:03 Dose: Not Given Diltiazem HCl (Cardizem Cd -) 120 mg PO DAILY [facility] Last Admin: 04/27/19 09:02 Dose: 120 mg Folic Acid (Folic Acid -) 1 mg PO DAILY [facility] Last Admin: 04/27/19 09:02 Dose: 1 mg Sodium Chloride (Normal Saline -) 1,000 mls @ 125 mls/hr IV ASDIR [facility] Last Admin: 04/26/19 15:52 Dose: Not Given Piperacillin Sod/Tazobactam (Sod 4.5 gm/ Dextrose) 100 mls @ 200 mls/hr IVPB Q8H-IV GE; Protocol Last Admin: 04/27/19 09:02 Dose: 200 mls/hr Methylprednisolone Sodium Succinate (Solu-Medrol -) 40 mg IVPUSH Q8H-IV GE Last Admin: 04/27/19 09:03 Dose: 40 mg Metoclopramide HCl (Reglan -) 10 mg PO ASDIR GE Pantoprazole Sodium (Protonix -) 40 mg PO DAILY [facility] Last Admin: 04/27/19 09:02 Dose: 40 mg Polyethylene Glycol (Miralax (For Daily Use) -) 17 gm PO DAILY GE Last Admin: 04/27/19 09:03 Dose: Not Given Tamsulosin HCl (Flomax -) 0.8 mg PO DAILY@0830 [facility] Last Admin: 04/27/19 08:55 Dose: 0.8 mg # COPD exacerbation Neb / steroids /taper IV steroids / PPi follow cultures ABX per ID O2 dependent # Esophageal adenoca ( stage 4 with mets) port in place s/p EGD / Colonoscopy 03/02/19 large nearly obstructing distal esophageal tumor scheduled for chemo once d/c'd # A. fib cardizem / NOAC / atenolol ( on hold due to exacerbation) will resume atenolol # HTN continue home meds # Anemia h/h stable will trend # anxiety / depression continue current medications Problem List - Problems (1) Adenocarcinoma of esophagus, stage 4 Code(s): C15.9 - MALIGNANT NEOPLASM OF ESOPHAGUS, UNSPECIFIED (2) COPD exacerbation Code(s): J44.1 - CHRONIC OBSTRUCTIVE PULMONARY DISEASE W (ACUTE) EXACERBATION (3) Pneumonia Code(s): J18.9 - PNEUMONIA, UNSPECIFIED ORGANISM Qualifiers: Pneumonia type: aspiration pneumonia Aspiration pneumonia type: due to regurgitated food Laterality: left Lung location: lower lobe of lung Qualified Code(s): J69.0 - Pneumonitis due to inhalation of food and vomit (4) Acute on chronic respiratory failure with hypoxia and hypercapnia Code(s): J96.21 - ACUTE AND CHRONIC RESPIRATORY FAILURE WITH HYPOXIA; J96.22 - ACUTE AND CHRONIC RESPIRATORY FAILURE WITH HYPERCAPNIA (5) Anemia Code(s): D64.9 - ANEMIA, UNSPECIFIED Qualifiers: Anemia type: iron deficiency (6) Dysphagia Code(s): R13.10 - DYSPHAGIA, UNSPECIFIED (7) Liver masses Code(s): R16.0 - HEPATOMEGALY, NOT ELSEWHERE CLASSIFIED (8) MRSA (methicillin resistant Staphylococcus aureus) carrier Code(s): Z22.322 - CARRIER OR SUSPECTED CARRIER OF METHICILLIN RESIS STAPH (9) Metastatic cancer Code(s): C79.9 - SECONDARY MALIGNANT NEOPLASM OF UNSPECIFIED SITE (10) Severe protein-calorie malnutrition Code(s): E43 - UNSPECIFIED SEVERE PROTEIN-CALORIE MALNUTRITION (11) Weight loss Code(s): R63.4 - ABNORMAL WEIGHT LOSS (12) Atrial fibrillation Code(s): I48.91 - UNSPECIFIED ATRIAL FIBRILLATION Qualifiers: (13) Coronary artery disease Code(s): I25.10 - ATHSCL HEART DISEASE OF [place] CORONARY ARTERY W/O ANG PCTRS Qualifiers:
--- NOTE | 2019-04-27 11:50 | PN ---
Progress Note, Physician History of Present Illness: PULMONARY ALERT,OOB,CHAIR,COMFORTABLE,-RESP DISTRESS - Current Medication List Current Medications: Active Medications Albuterol Sulfate (Ventolin 0.083% Nebulizer Soln -) 1 amp NEB RQ4H PRN PRN Reason: ASTHMA Albuterol/Ipratropium (Duoneb -) 1 amp NEB Q4H PRN PRN Reason: SHORTNESS OF BREATH Albuterol/Ipratropium (Duoneb -) 1 amp NEB RQID GE Last Admin: 04/27/19 08:00 Dose: 1 amp Alprazolam (Xanax) 1 mg PO Q6H PRN PRN Reason: ANXIETY Last Admin: 04/27/19 09:02 Dose: 1 mg Apixaban (Eliquis -) 5 mg PO BID GE Last Admin: 04/27/19 09:03 Dose: Not Given Diltiazem HCl (Cardizem Cd -) 120 mg PO DAILY GE Last Admin: 04/27/19 09:02 Dose: 120 mg Folic Acid (Folic Acid -) 1 mg PO DAILY GE Last Admin: 04/27/19 09:02 Dose: 1 mg Sodium Chloride (Normal Saline -) 1,000 mls @ 125 mls/hr IV ASDIR GE Last Admin: 04/26/19 15:52 Dose: Not Given Piperacillin Sod/Tazobactam (Sod 4.5 gm/ Dextrose) 100 mls @ 200 mls/hr IVPB Q8H-IV GE; Protocol Last Admin: 04/27/19 09:02 Dose: 200 mls/hr Methylprednisolone Sodium Succinate (Solu-Medrol -) 40 mg IVPUSH Q8H-IV GE Last Admin: 04/27/19 09:03 Dose: 40 mg Metoclopramide HCl (Reglan -) 10 mg PO ASDIR GE Pantoprazole Sodium (Protonix -) 40 mg PO DAILY GE Last Admin: 04/27/19 09:02 Dose: 40 mg Polyethylene Glycol (Miralax (For Daily Use) -) 17 gm PO DAILY GE Last Admin: 04/27/19 09:03 Dose: Not Given Tamsulosin HCl (Flomax -) 0.8 mg PO DAILY@0830 GE Last Admin: 04/27/19 08:55 Dose: 0.8 mg - Objective Vital Signs: Vital Signs Temperature 98.4 F 04/27/19 10:00 Pulse Rate 69 04/27/19 10:00 Respiratory Rate 16 04/27/19 10:00 Blood Pressure 124/58 L 04/27/19 10:00 O2 Sat by Pulse Oximetry (%) 97 04/27/19 10:00 Constitutional: Yes: Calm, Thin Eyes: Yes: WNL HENT: Yes: WNL Neck: Yes: WNL Cardiovascular: Yes: Pulse Irregular, S1, S2 Respiratory: Yes: Diminished Gastrointestinal: Yes: Normal Bowel Sounds, Soft Extremities: Yes: WNL Edema: No Labs: CBC, BMP 04/27/19 06:30 04/27/19 06:30 INR, PTT INR 1.13 (0.83-1.09) H 04/25/19 11:00 - ....Imaging Cat Scan: Report Reviewed, Image Reviewed Problem List - Problems (1) Adenocarcinoma of esophagus, stage 4 Code(s): C15.9 - MALIGNANT NEOPLASM OF ESOPHAGUS, UNSPECIFIED (2) COPD exacerbation Code(s): J44.1 - CHRONIC OBSTRUCTIVE PULMONARY DISEASE W (ACUTE) EXACERBATION (3) Acute respiratory failure Code(s): J96.00 - ACUTE RESPIRATORY FAILURE, UNSP W HYPOXIA OR HYPERCAPNIA (4) Anemia Code(s): D64.9 - ANEMIA, UNSPECIFIED Qualifiers: Anemia type: iron deficiency (5) Metastatic cancer Code(s): C79.9 - SECONDARY MALIGNANT NEOPLASM OF UNSPECIFIED SITE (6) Atrial fibrillation Code(s): I48.91 - UNSPECIFIED ATRIAL FIBRILLATION Qualifiers: (7) Coronary artery disease Code(s): I25.10 - ATHSCL HEART DISEASE OF [place] CORONARY ARTERY W/O ANG PCTRS Qualifiers: (8) HTN (hypertension) Code(s): I10 - ESSENTIAL (PRIMARY) HYPERTENSION Qualifiers: Hypertension type: essential hypertension Qualified Code(s): I10 - Essential (primary) hypertension Assessment/Plan Assessment/Plan: AE of COPD improving Chronic bronchitis R/O Micro-aspiration AFib HTN Esophageal adenocarcinoma (stage 4 with mets to liver), anemia, BPH SOB leucocytosis R/O PNA Acute hypoxic respiratory failure improving Plan: Consider formal Swallow evaluation ABX medrol O2 as needed to maintain saturation Aspiration precautions DR COREAS
--- NOTE | 2019-04-27 15:11 | PN ---
Progress Note (short form) - Note Progress Note: I improved less cough Vital Signs Period Temp Pulse Resp BP Sys/Cleaning Pulse Ox Last 24 Hr 97.0 F-98.4 F 57-69 16-18 119-135/54-69 97-97 cor-rrr lungs decreased bs at bases abd soft,nt ext no edema CBC, BMP 04/27/19 06:30 04/27/19 06:30 Microbiology 04/25/19 11:00 Blood - Peripheral Venous Blood Culture - Preliminary NO GROWTH OBTAINED AFTER 48 HOURS, INCUBATION TO CONTINUE FOR 3 DAYS. 04/25/19 13:00 Blood - Peripheral Venous Blood Culture - Preliminary NO GROWTH OBTAINED AFTER 48 HOURS, INCUBATION TO CONTINUE FOR 3 DAYS. 04/25/19 13:20 Sputum - Expectorated Gram Stain - Final 04/25/19 13:20 Sputum - Expectorated Sputum Culture - Final NORMAL RESPIRATORY YECENIA 04/25/19 15:41 Urine For Antigen Detection Legionella Antigen - Final 04/25/19 15:41 Urine For Antigen Detection Streptococcus pneumoniae Antigen (M - Final Current Medications Albuterol Sulfate (Ventolin 0.083% Nebulizer Soln -) 1 amp NEB RQ4H PRN PRN Reason: ASTHMA Albuterol/Ipratropium (Duoneb -) 1 amp NEB Q4H PRN PRN Reason: SHORTNESS OF BREATH Albuterol/Ipratropium (Duoneb -) 1 amp NEB RQID [facility] Last Admin: 04/27/19 12:00 Dose: 1 amp Alprazolam (Xanax) 1 mg PO Q6H PRN PRN Reason: ANXIETY Last Admin: 04/27/19 09:02 Dose: 1 mg Apixaban (Eliquis -) 5 mg PO BID [facility] Last Admin: 04/27/19 09:03 Dose: Not Given Diltiazem HCl (Cardizem Cd -) 120 mg PO DAILY [facility] Last Admin: 04/27/19 09:02 Dose: 120 mg Folic Acid (Folic Acid -) 1 mg PO DAILY [facility] Last Admin: 04/27/19 09:02 Dose: 1 mg Sodium Chloride (Normal Saline -) 1,000 mls @ 125 mls/hr IV ASDIR [facility] Last Admin: 04/26/19 15:52 Dose: Not Given Piperacillin Sod/Tazobactam (Sod 4.5 gm/ Dextrose) 100 mls @ 200 mls/hr IVPB Q8H-IV GE; Protocol Last Admin: 04/27/19 09:02 Dose: 200 mls/hr Methylprednisolone Sodium Succinate (Solu-Medrol -) 40 mg IVPUSH Q8H-IV GE Last Admin: 04/27/19 09:03 Dose: 40 mg Metoclopramide HCl (Reglan -) 10 mg PO ASDIR GE Pantoprazole Sodium (Protonix -) 40 mg PO DAILY [facility] Last Admin: 04/27/19 09:02 Dose: 40 mg Polyethylene Glycol (Miralax (For Daily Use) -) 17 gm PO DAILY [facility] Last Admin: 04/27/19 09:03 Dose: Not Given Tamsulosin HCl (Flomax -) 0.8 mg PO DAILY@0830 [facility] Last Admin: 04/27/19 08:55 Dose: 0.8 mg a/p probable aspiration pneumonia- copd exacerbationhome oxygen stage 4 esophageal cancer contact isolation no mrsa, vancomycin d/michael continue zosyn will review chest ct with pulmonary Problem List - Problems (1) Pneumonia Code(s): J18.9 - PNEUMONIA, UNSPECIFIED ORGANISM Qualifiers: Pneumonia type: aspiration pneumonia Aspiration pneumonia type: due to regurgitated food Laterality: left Lung location: lower lobe of lung Qualified Code(s): J69.0 - Pneumonitis due to inhalation of food and vomit (2) COPD exacerbation Code(s): J44.1 - CHRONIC OBSTRUCTIVE PULMONARY DISEASE W (ACUTE) EXACERBATION (3) Adenocarcinoma of esophagus, stage 4 Code(s): C15.9 - MALIGNANT NEOPLASM OF ESOPHAGUS, UNSPECIFIED
[2019-04-27 15:27] VITALS: BMI 18.1
[2019-04-28] MEDS ORDERED: PIPERACILLIN/TAZOBACTAM 4.5 GM VIAL IVPB ONE ×3 (00:37→16:50)
[2019-04-28] MEDS ORDERED: DEXTROSE 5%-WATER 100 ML IVPB ONE ×3 (00:38→16:50)
[2019-04-28] MEDS: PIPERACILLIN/TAZOB 4.5 GM 4.5 GM in DEXTROSE 5%-WATER 100 ML IVPB SCH ×3 (01:22→17:02)
[2019-04-28] MEDS: methylPREDNISolone NA SUCC 40 MG/1 ML VIAL IVPUSH SCH ×3 (01:23→22:26)
[2019-04-28] MEDS: ALPRAZolam 1 MG TABLET PO PRN ×3 (06:32→19:09)
[2019-04-28] MEDS: TAMSULOSIN HCL 0.4 MG CAP PO SCH (07:47)
[2019-04-28] MEDS: ALBUTEROL SO4 2.5/IPRATROPIUM 0.5 INH SOL 3 ML VIAL.NEB. NEB SCH ×4 (08:07→20:35)
[2019-04-28] MEDS: FOLIC ACID 1 MG TABLET (FP) PO SCH (09:37)
[2019-04-28] MEDS: PANTOPRAZOLE 40 MG TABLET (FP) PO SCH (09:37)
[2019-04-28] MEDS: POLYETHYLENE GLYCOL 3350 119 GM BTL PO SCH (09:40)
--- NOTE | 2019-04-28 12:37 | PN ---
Progress Note (short form) - Note Progress Note: sitting in bed comfortable reports feeling better Vital Signs Period Temp Pulse Resp BP Sys/Cleaning Pulse Ox Last 24 Hr 97.0 F-98.4 F 57-78 16-18 119-135/49-62 97-97 neck supple dry dressing to port site -no signs of bleeding heart s1/S2 irreg lungs decreased BS no wheezing abd soft ext + edema CBC, BMP 04/27/19 06:30 04/27/19 06:30 CBC, BMP 04/27/19 06:30 04/27/19 06:30 Microbiology 04/25/19 11:00 Blood - Peripheral Venous Blood Culture - Preliminary NO GROWTH OBTAINED AFTER 48 HOURS, INCUBATION TO CONTINUE FOR 3 DAYS. 04/25/19 13:00 Blood - Peripheral Venous Blood Culture - Preliminary NO GROWTH OBTAINED AFTER 48 HOURS, INCUBATION TO CONTINUE FOR 3 DAYS. 04/25/19 13:20 Sputum - Expectorated Gram Stain - Final 04/25/19 13:20 Sputum - Expectorated Sputum Culture - Final NORMAL RESPIRATORY YECENIA 04/25/19 15:41 Urine For Antigen Detection Legionella Antigen - Final 04/25/19 15:41 Urine For Antigen Detection Streptococcus pneumoniae Antigen (M - Final Active Medications Albuterol Sulfate (Ventolin 0.083% Nebulizer Soln -) 1 amp NEB RQ4H PRN PRN Reason: ASTHMA Albuterol/Ipratropium (Duoneb -) 1 amp NEB Q4H PRN PRN Reason: SHORTNESS OF BREATH Albuterol/Ipratropium (Duoneb -) 1 amp NEB RQID GE Last Admin: 04/28/19 11:25 Dose: 1 amp Alprazolam (Xanax) 1 mg PO Q6H PRN PRN Reason: ANXIETY Last Admin: 04/28/19 06:32 Dose: 1 mg Diltiazem HCl (Cardizem Cd -) 120 mg PO DAILY GE Last Admin: 04/27/19 09:02 Dose: 120 mg Folic Acid (Folic Acid -) 1 mg PO DAILY GE Last Admin: 04/28/19 09:37 Dose: 1 mg Piperacillin Sod/Tazobactam (Sod 4.5 gm/ Dextrose) 100 mls @ 200 mls/hr IVPB Q8H-IV GE; Protocol Last Admin: 04/28/19 09:36 Dose: 200 mls/hr Methylprednisolone Sodium Succinate (Solu-Medrol -) 40 mg IVPUSH Q8H-IV GE Last Admin: 04/28/19 09:37 Dose: 40 mg Metoclopramide HCl (Reglan -) 10 mg PO ASDIR GE Pantoprazole Sodium (Protonix -) 40 mg PO DAILY [facility] Last Admin: 04/28/19 09:37 Dose: 40 mg Polyethylene Glycol (Miralax (For Daily Use) -) 17 gm PO DAILY [facility] Last Admin: 04/28/19 09:40 Dose: Not Given Tamsulosin HCl (Flomax -) 0.8 mg PO DAILY@0830 [facility] Last Admin: 04/28/19 07:47 Dose: 0.8 mg # COPD exacerbation Neb / steroids /taper IV steroids / PPi follow cultures ABX per ID O2 dependent # Esophageal adenoca ( stage 4 with mets) port in place s/p EGD / Colonoscopy 03/02/19 large nearly obstructing distal esophageal tumor scheduled for chemo once d/c'd # A. fib cardizem / NOAC / atenolol ( on hold due to exacerbation) will resume atenolol # HTN continue home meds # Anemia h/h stable will trend # anxiety / depression continue current medications Problem List - Problems (1) Adenocarcinoma of esophagus, stage 4 Code(s): C15.9 - MALIGNANT NEOPLASM OF ESOPHAGUS, UNSPECIFIED (2) COPD exacerbation Code(s): J44.1 - CHRONIC OBSTRUCTIVE PULMONARY DISEASE W (ACUTE) EXACERBATION (3) Pneumonia Code(s): J18.9 - PNEUMONIA, UNSPECIFIED ORGANISM Qualifiers: Pneumonia type: aspiration pneumonia Aspiration pneumonia type: due to regurgitated food Laterality: left Lung location: lower lobe of lung Qualified Code(s): J69.0 - Pneumonitis due to inhalation of food and vomit (4) Acute on chronic respiratory failure with hypoxia and hypercapnia Code(s): J96.21 - ACUTE AND CHRONIC RESPIRATORY FAILURE WITH HYPOXIA; J96.22 - ACUTE AND CHRONIC RESPIRATORY FAILURE WITH HYPERCAPNIA (5) Anemia Code(s): D64.9 - ANEMIA, UNSPECIFIED Qualifiers: Anemia type: iron deficiency (6) Dysphagia Code(s): R13.10 - DYSPHAGIA, UNSPECIFIED (7) Liver masses Code(s): R16.0 - HEPATOMEGALY, NOT ELSEWHERE CLASSIFIED (8) MRSA (methicillin resistant Staphylococcus aureus) carrier Code(s): Z22.322 - CARRIER OR SUSPECTED CARRIER OF METHICILLIN RESIS STAPH (9) Metastatic cancer Code(s): C79.9 - SECONDARY MALIGNANT NEOPLASM OF UNSPECIFIED SITE (10) Severe protein-calorie malnutrition Code(s): E43 - UNSPECIFIED SEVERE PROTEIN-CALORIE MALNUTRITION (11) Weight loss Code(s): R63.4 - ABNORMAL WEIGHT LOSS (12) Atrial fibrillation Code(s): I48.91 - UNSPECIFIED ATRIAL FIBRILLATION Qualifiers: (13) Coronary artery disease Code(s): I25.10 - ATHSCL HEART DISEASE OF [place] CORONARY ARTERY W/O ANG PCTRS Qualifiers:
--- NOTE | 2019-04-28 12:43 | PN ---
Progress Note, Physician History of Present Illness: pulmonary alert,comfortable,breathing improved - Current Medication List Current Medications: Active Medications Albuterol Sulfate (Ventolin 0.083% Nebulizer Soln -) 1 amp NEB RQ4H PRN PRN Reason: ASTHMA Albuterol/Ipratropium (Duoneb -) 1 amp NEB Q4H PRN PRN Reason: SHORTNESS OF BREATH Albuterol/Ipratropium (Duoneb -) 1 amp NEB RQID GE Last Admin: 04/28/19 11:25 Dose: 1 amp Alprazolam (Xanax) 1 mg PO Q6H PRN PRN Reason: ANXIETY Last Admin: 04/28/19 06:32 Dose: 1 mg Diltiazem HCl (Cardizem Cd -) 120 mg PO DAILY [facility] Last Admin: 04/27/19 09:02 Dose: 120 mg Folic Acid (Folic Acid -) 1 mg PO DAILY [facility] Last Admin: 04/28/19 09:37 Dose: 1 mg Piperacillin Sod/Tazobactam (Sod 4.5 gm/ Dextrose) 100 mls @ 200 mls/hr IVPB Q8H-IV GE; Protocol Last Admin: 04/28/19 09:36 Dose: 200 mls/hr Methylprednisolone Sodium Succinate (Solu-Medrol -) 40 mg IVPUSH Q8H-IV GE Last Admin: 04/28/19 09:37 Dose: 40 mg Metoclopramide HCl (Reglan -) 10 mg PO ASDIR GE Pantoprazole Sodium (Protonix -) 40 mg PO DAILY [facility] Last Admin: 04/28/19 09:37 Dose: 40 mg Polyethylene Glycol (Miralax (For Daily Use) -) 17 gm PO DAILY [facility] Last Admin: 04/28/19 09:40 Dose: Not Given Tamsulosin HCl (Flomax -) 0.8 mg PO DAILY@0830 [facility] LICENSE OF [facility] Last Admin: 04/28/19 07:47 Dose: 0.8 mg - Objective Vital Signs: Vital Signs Temperature 97.5 F L 04/28/19 08:02 Pulse Rate 52 L 04/28/19 08:02 Respiratory Rate 18 04/28/19 08:02 Blood Pressure 128/52 L 04/28/19 08:02 O2 Sat by Pulse Oximetry (%) 96 04/28/19 10:00 Constitutional: Yes: Calm, Thin Eyes: Yes: WNL HENT: Yes: WNL Neck: Yes: WNL Cardiovascular: Yes: Pulse Irregular, S1, S2 Respiratory: Yes: Diminished Gastrointestinal: Yes: Normal Bowel Sounds, Soft Extremities: Yes: WNL Edema: No Labs: CBC, BMP Problem List - Problems (1) Adenocarcinoma of esophagus, stage 4 Code(s): C15.9 - MALIGNANT NEOPLASM OF ESOPHAGUS, UNSPECIFIED (2) COPD exacerbation Code(s): J44.1 - CHRONIC OBSTRUCTIVE PULMONARY DISEASE W (ACUTE) EXACERBATION (3) Acute respiratory failure Code(s): J96.00 - ACUTE RESPIRATORY FAILURE, UNSP W HYPOXIA OR HYPERCAPNIA (4) Anemia Code(s): D64.9 - ANEMIA, UNSPECIFIED Qualifiers: Anemia type: iron deficiency (5) Metastatic cancer Code(s): C79.9 - SECONDARY MALIGNANT NEOPLASM OF UNSPECIFIED SITE (6) Atrial fibrillation Code(s): I48.91 - UNSPECIFIED ATRIAL FIBRILLATION Qualifiers: (7) Coronary artery disease Code(s): I25.10 - ATHSCL HEART DISEASE OF [place] CORONARY ARTERY W/O ANG PCTRS Qualifiers: (8) HTN (hypertension) Code(s): I10 - ESSENTIAL (PRIMARY) HYPERTENSION Qualifiers: Hypertension type: essential hypertension Qualified Code(s): I10 - Essential (primary) hypertension Assessment/Plan Assessment/Plan: AE of COPD improving Chronic bronchitis R/O Micro-aspiration AFib HTN Esophageal adenocarcinoma (stage 4 with mets to liver), anemia, BPH SOB leucocytosis R/O PNA Acute hypoxic respiratory failure improving Plan: Consider formal Swallow evaluation ABX continue medrol taper O2 as needed to maintain saturation Aspiration precautions DR OCREAS
--- NOTE | 2019-04-28 14:59 | PN ---
Progress Note (short form) - Note Progress Note: I improved much less sob less cough Vital Signs Period Temp Pulse Resp BP Sys/Cleaning Pulse Ox Last 24 Hr 97.2 F-97.8 F 52-67 18-18 115-128/46-60 96 cor-rrr lungs decreased bs at bases abd soft,nt ext no edema CBC, BMP 04/27/19 06:30 04/27/19 06:30 Microbiology 04/25/19 11:00 Blood - Peripheral Venous Blood Culture - Preliminary NO GROWTH OBTAINED AFTER 72 HOURS, INCUBATION TO CONTINUE FOR 2 DAYS. 04/25/19 13:00 Blood - Peripheral Venous Blood Culture - Preliminary NO GROWTH OBTAINED AFTER 72 HOURS, INCUBATION TO CONTINUE FOR 2 DAYS. 04/26/19 11:30 Nares - Mrsa Screen - Left MRSA Screen - Final S Aureus 04/26/19 11:30 Nares - Mrsa Screen - Right MRSA Screen - Final S Aureus 04/25/19 13:20 Sputum - Expectorated Gram Stain - Final 04/25/19 13:20 Sputum - Expectorated Sputum Culture - Final NORMAL RESPIRATORY YECENIA 04/25/19 15:41 Urine For Antigen Detection Legionella Antigen - Final 04/25/19 15:41 Urine For Antigen Detection Streptococcus pneumoniae Antigen (M - Final Current Medications Albuterol Sulfate (Ventolin 0.083% Nebulizer Soln -) 1 amp NEB RQ4H PRN PRN Reason: ASTHMA Albuterol/Ipratropium (Duoneb -) 1 amp NEB Q4H PRN PRN Reason: SHORTNESS OF BREATH Albuterol/Ipratropium (Duoneb -) 1 amp NEB RQID GE Last Admin: 04/28/19 11:25 Dose: 1 amp Alprazolam (Xanax) 1 mg PO Q6H PRN PRN Reason: ANXIETY Last Admin: 04/28/19 12:49 Dose: 1 mg Diltiazem HCl (Cardizem Cd -) 120 mg PO DAILY GE Last Admin: 04/27/19 09:02 Dose: 120 mg Folic Acid (Folic Acid -) 1 mg PO DAILY [facility] Last Admin: 04/28/19 09:37 Dose: 1 mg Piperacillin Sod/Tazobactam (Sod 4.5 gm/ Dextrose) 100 mls @ 200 mls/hr IVPB Q8H-IV GE; Protocol Last Admin: 04/28/19 09:36 Dose: 200 mls/hr Methylprednisolone Sodium Succinate (Solu-Medrol -) 40 mg IVPUSH BID [facility] Metoclopramide HCl (Reglan -) 10 mg PO ASDIR [facility] Pantoprazole Sodium (Protonix -) 40 mg PO DAILY [facility] Last Admin: 04/28/19 09:37 Dose: 40 mg Polyethylene Glycol (Miralax (For Daily Use) -) 17 gm PO DAILY [facility] Last Admin: 04/28/19 09:40 Dose: Not Given Tamsulosin HCl (Flomax -) 0.8 mg PO DAILY@0830 [facility] Last Admin: 04/28/19 07:47 Dose: 0.8 mg a/p probable aspiration pneumonia- copd exacerbation home oxygen stage 4 esophageal cancer contact isolation day 3 ericsyn, can switch to augmentin to complete 7 days Problem List - Problems (1) Pneumonia Code(s): J18.9 - PNEUMONIA, UNSPECIFIED ORGANISM Qualifiers: Pneumonia type: aspiration pneumonia Aspiration pneumonia type: due to regurgitated food Laterality: left Lung location: lower lobe of lung Qualified Code(s): J69.0 - Pneumonitis due to inhalation of food and vomit (2) COPD exacerbation Code(s): J44.1 - CHRONIC OBSTRUCTIVE PULMONARY DISEASE W (ACUTE) EXACERBATION (3) Adenocarcinoma of esophagus, stage 4 Code(s): C15.9 - MALIGNANT NEOPLASM OF ESOPHAGUS, UNSPECIFIED
[2019-04-29] MEDS ORDERED: PIPERACILLIN/TAZOBACTAM 4.5 GM VIAL IVPB ONE ×2 (00:53→09:36)
[2019-04-29] MEDS ORDERED: DEXTROSE 5%-WATER 100 ML IVPB ONE ×2 (00:54→09:36)
[2019-04-29] MEDS: ALPRAZolam 1 MG TABLET PO PRN ×2 (01:02→09:48)
[2019-04-29] MEDS: PIPERACILLIN/TAZOB 4.5 GM 4.5 GM in DEXTROSE 5%-WATER 100 ML IVPB SCH ×2 (01:02→09:49)
[2019-04-29] MEDS: ALBUTEROL SO4 2.5/IPRATROPIUM 0.5 INH SOL 3 ML VIAL.NEB. NEB SCH (08:33)
[2019-04-29] MEDS: TAMSULOSIN HCL 0.4 MG CAP PO SCH (09:46)
[2019-04-29] MEDS: PANTOPRAZOLE 40 MG TABLET (FP) PO SCH (09:47)
[2019-04-29] MEDS: FOLIC ACID 1 MG TABLET (FP) PO SCH (09:47)
[2019-04-29] MEDS: methylPREDNISolone NA SUCC 40 MG/1 ML VIAL IVPUSH SCH (09:47)
[2019-04-29] MEDS: POLYETHYLENE GLYCOL 3350 119 GM BTL PO SCH (09:57)
--- NOTE | 2019-04-29 10:05 | PN ---
Progress Note (short form) - Note Progress Note: 73 y/o male found sitting in bed. Reports that cough/ SOB have improved. No c/o pain or discomfort. Eager to go home today. Vital Signs Period Temp Pulse Resp BP Sys/Cleaning Pulse Ox Last 24 Hr 97.7 F-98.1 F 52-65 16-18 121-155/46-72 96 CBC, BMP 04/27/19 06:30 04/27/19 06:30 HEENT- NL Neck- Trachea Midline Lungs- CTAB Heart- S1/S2 Abd- soft, NT Ext- No LE edema Active Medications Albuterol Sulfate (Ventolin 0.083% Nebulizer Soln -) 1 amp NEB RQ4H PRN PRN Reason: ASTHMA Albuterol/Ipratropium (Duoneb -) 1 amp NEB Q4H PRN PRN Reason: SHORTNESS OF BREATH Albuterol/Ipratropium (Duoneb -) 1 amp NEB RQID [facility] Last Admin: 04/29/19 08:33 Dose: 1 amp Alprazolam (Xanax) 1 mg PO Q6H PRN PRN Reason: ANXIETY Last Admin: 04/29/19 09:48 Dose: 1 mg Diltiazem HCl (Cardizem Cd -) 120 mg PO DAILY [facility] Last Admin: 04/29/19 09:48 Dose: 120 mg Folic Acid (Folic Acid -) 1 mg PO DAILY [facility] Last Admin: 04/29/19 09:47 Dose: 1 mg Piperacillin Sod/Tazobactam (Sod 4.5 gm/ Dextrose) 100 mls @ 200 mls/hr IVPB Q8H-IV GE; Protocol Last Admin: 04/29/19 09:49 Dose: 200 mls/hr Methylprednisolone Sodium Succinate (Solu-Medrol -) 40 mg IVPUSH BID [facility] Last Admin: 04/29/19 09:47 Dose: 40 mg Metoclopramide HCl (Reglan -) 10 mg PO ASDIR GE Pantoprazole Sodium (Protonix -) 40 mg PO DAILY [facility] Last Admin: 04/29/19 09:47 Dose: 40 mg Polyethylene Glycol (Miralax (For Daily Use) -) 17 gm PO DAILY [facility] Last Admin: 04/29/19 09:57 Dose: 17 g Tamsulosin HCl (Flomax -) 0.8 mg PO DAILY@0830 [facility] Last Admin: 04/29/19 09:46 Dose: 0.8 mg # COPD exacerbation Neb / PO steroids / PPI ABX switched to PO O2 dependent # Esophageal adenocarcinoma ( stage 4 with liver mets) s/p EGD / Colonoscopy 03/02/19 large nearly obstructing distal esophageal tumor schedule for chemo once d/c'd # A. fib cardizem / NOAC / atenolol resume atenolol at home # HTN continue home meds # Anemia hct 8.9 # anxiety / depression continue current medications Plan- DC home today with . Continue home meds in addition to PO Augmentin and Prednisone. Problem List - Problems (1) Adenocarcinoma of esophagus, stage 4 Code(s): C15.9 - MALIGNANT NEOPLASM OF ESOPHAGUS, UNSPECIFIED (2) COPD exacerbation Code(s): J44.1 - CHRONIC OBSTRUCTIVE PULMONARY DISEASE W (ACUTE) EXACERBATION (3) Pneumonia Code(s): J18.9 - PNEUMONIA, UNSPECIFIED ORGANISM Qualifiers: Pneumonia type: aspiration pneumonia Aspiration pneumonia type: due to regurgitated food Laterality: left Lung location: lower lobe of lung Qualified Code(s): J69.0 - Pneumonitis due to inhalation of food and vomit (4) Acute on chronic respiratory failure with hypoxia and hypercapnia Code(s): J96.21 - ACUTE AND CHRONIC RESPIRATORY FAILURE WITH HYPOXIA; J96.22 - ACUTE AND CHRONIC RESPIRATORY FAILURE WITH HYPERCAPNIA (5) Anemia Code(s): D64.9 - ANEMIA, UNSPECIFIED Qualifiers: Anemia type: iron deficiency (6) Dysphagia Code(s): R13.10 - DYSPHAGIA, UNSPECIFIED (7) Liver masses Code(s): R16.0 - HEPATOMEGALY, NOT ELSEWHERE CLASSIFIED (8) MRSA (methicillin resistant Staphylococcus aureus) carrier Code(s): Z22.322 - CARRIER OR SUSPECTED CARRIER OF METHICILLIN RESIS STAPH (9) Metastatic cancer Code(s): C79.9 - SECONDARY MALIGNANT NEOPLASM OF UNSPECIFIED SITE (10) Severe protein-calorie malnutrition Code(s): E43 - UNSPECIFIED SEVERE PROTEIN-CALORIE MALNUTRITION (11) Weight loss Code(s): R63.4 - ABNORMAL WEIGHT LOSS (12) Atrial fibrillation Code(s): I48.91 - UNSPECIFIED ATRIAL FIBRILLATION Qualifiers: (13) Coronary artery disease Code(s): I25.10 - ATHSCL HEART DISEASE OF [place] CORONARY ARTERY W/O ANG PCTRS Qualifiers:
--- NOTE | 2019-04-29 10:13 | DS ---
Physical Examination Vital Signs: Vital Signs Temperature 97.8 F 04/29/19 06:00 Pulse Rate 60 04/29/19 06:00 Respiratory Rate 16 04/29/19 06:00 Blood Pressure 155/72 04/29/19 06:00 O2 Sat by Pulse Oximetry (%) 96 04/28/19 21:00 Constitutional: Yes: Well Nourished, Calm Eyes: Yes: Conjunctiva Clear HENT: Yes: Atraumatic, Normocephalic Neck: Yes: Supple, Trachea Midline Cardiovascular: Yes: Regular Rate and Rhythm Respiratory: Yes: Regular, CTA Bilaterally Gastrointestinal: Yes: Normal Bowel Sounds, Soft ...Rectal Exam: Yes: Deferred Renal/: Yes: WNL Breast(s): Yes: WNL Musculoskeletal: Yes: WNL Extremities: Yes: WNL Edema: No Peripheral Pulses WNL: No Integumentary: Yes: WNL Neurological: Yes: Alert, Oriented ...Motor Strength: WNL Psychiatric: Yes: Alert, Oriented Labs: CBC, BMP 04/27/19 06:30 04/27/19 06:30 Discharge Summary Problems reviewed: Yes Reason For Visit: ACUTE EXACERBATION OF CHRONIC OBSTRUCTIVE PULMONAR Current Active Problems Adenocarcinoma of esophagus, stage 4 (Acute) COPD exacerbation (Acute) Pneumonia (Acute) Hospital Course: Pt is a 73 yo M, with PMH of Afib (on eliquis and cardizem), HTN, COPD, esophageal adenocarcinoma (stage 4 with mets to liver), anemia, and BPH, with cognitive decline ( mild-mod dementia). Admitted for COPD exacerbation, treated with IV antibiotics and IV steroids. SOB and cough greatly improved. Plan to DC home today on PO antibiotics and PO steroids. Condition: Stable - Instructions Diet, Activity, Other Instructions: F/U with oncology for Chemo schedule. F/u with PCP in 1-2 weeks. Disposition: HOME - Home Medications Comprehensive Discharge Medication List: Ambulatory Orders Alprazolam [Xanax] 1 mg PO QID 03/06/18 Folic Acid 1 mg PO DAILY 03/06/18 Albuterol 2.5/Ipratropium 0.5 [Duoneb -] 1 vial NEB QID PRN 03/09/18 Diltiazem Cd [Cardizem Cd -] 120 mg PO DAILY #30 cap.cd.24h 08/23/18 Tamsulosin HCl [Flomax -] 0.8 mg PO DAILY@0830 30 Days #60 cap.er.24h 04/23/18 Albuterol 0.083% Nebulizer [place]a [Ventolin 0.083% Nebulizer Soln -] 1 amp NEB Q4H PRN amp 12/29/18 Atenolol [Tenormin -] 25 mg PO DAILY 30 Days #30 tablet 12/29/18
[2019-04-29 10:40] VITALS: TEMP 97.7
--- NOTE | 2019-04-29 11:07 | PN ---
Progress Note (short form) - Note Progress Note: Feels overall better. Denies CP or SOB. Some dry cough. Intake & Output 04/26/19 04/27/19 04/28/19 04/29/19 23:59 23:59 23:59 23:59 Intake Total 1989 1074 490 750 Output Total 2450 1100 3900 350 Balance - 400 Weight 141 lb 6 oz 141 lb 140 lb Last Vital Signs Temp Pulse Resp BP Pulse Ox 97.7 F 69 18 137/52 L 96 04/29/19 10:00 04/29/19 10:00 04/29/19 10:00 04/29/19 10:00 04/28/19 21:00 Active Medications Albuterol Sulfate (Ventolin 0.083% Nebulizer Soln -) 1 amp NEB RQ4H PRN PRN Reason: ASTHMA Albuterol/Ipratropium (Duoneb -) 1 amp NEB Q4H PRN PRN Reason: SHORTNESS OF BREATH Albuterol/Ipratropium (Duoneb -) 1 amp NEB RQID GE Last Admin: 04/29/19 08:33 Dose: 1 amp Alprazolam (Xanax) 1 mg PO Q6H PRN PRN Reason: ANXIETY Last Admin: 04/29/19 09:48 Dose: 1 mg Diltiazem HCl (Cardizem Cd -) 120 mg PO DAILY [facility] Last Admin: 04/29/19 09:48 Dose: 120 mg Folic Acid (Folic Acid -) 1 mg PO DAILY [facility] Last Admin: 04/29/19 09:47 Dose: 1 mg Piperacillin Sod/Tazobactam (Sod 4.5 gm/ Dextrose) 100 mls @ 200 mls/hr IVPB Q8H-IV GE; Protocol Last Admin: 04/29/19 09:49 Dose: 200 mls/hr Methylprednisolone Sodium Succinate (Solu-Medrol -) 40 mg IVPUSH BID [facility] Last Admin: 04/29/19 09:47 Dose: 40 mg Metoclopramide HCl (Reglan -) 10 mg PO ASDIR GE Pantoprazole Sodium (Protonix -) 40 mg PO DAILY [facility] Last Admin: 04/29/19 09:47 Dose: 40 mg Polyethylene Glycol (Miralax (For Daily Use) -) 17 gm PO DAILY [facility] Last Admin: 04/29/19 09:57 Dose: 17 g Tamsulosin HCl (Flomax -) 0.8 mg PO DAILY@0830 GE Last Admin: 04/29/19 09:46 Dose: 0.8 mg Constitutional: Yes: NAD, Thin Eyes: Yes: WNL HENT: Yes: WNL Neck: Yes: WNL Cardiovascular: Yes: Pulse Irregular, S1, S2 Respiratory: Yes: Diminished Gastrointestinal: Yes: Normal Bowel Sounds, Soft Extremities: Yes: WNL Edema: No Labs: Problem List - Problems (1) Adenocarcinoma of esophagus, stage 4 Code(s): C15.9 - MALIGNANT NEOPLASM OF ESOPHAGUS, UNSPECIFIED (2) COPD exacerbation Code(s): J44.1 - CHRONIC OBSTRUCTIVE PULMONARY DISEASE W (ACUTE) EXACERBATION (3) Acute respiratory failure Code(s): J96.00 - ACUTE RESPIRATORY FAILURE, UNSP W HYPOXIA OR HYPERCAPNIA (4) Anemia Code(s): D64.9 - ANEMIA, UNSPECIFIED Qualifiers: Anemia type: iron deficiency (5) Metastatic cancer Code(s): C79.9 - SECONDARY MALIGNANT NEOPLASM OF UNSPECIFIED SITE (6) Atrial fibrillation Code(s): I48.91 - UNSPECIFIED ATRIAL FIBRILLATION Qualifiers: (7) Coronary artery disease Code(s): I25.10 - ATHSCL HEART DISEASE OF [place] CORONARY ARTERY W/O ANG PCTRS Qualifiers: (8) HTN (hypertension) Code(s): I10 - ESSENTIAL (PRIMARY) HYPERTENSION Qualifiers: Hypertension type: essential hypertension Qualified Code(s): I10 - Essential (primary) hypertension Assessment/Plan Improved AE of COPD Chronic bronchitis R/O Micro-aspiration AFib HTN Esophageal adenocarcinoma (stage 4 with mets to liver), anemia, BPH SOB leucocytosis R/O PNA Acute hypoxic respiratory failure improving Plan: PO ABX Per ID Aspiration precautions No smoking DC planning Dr Turner
[2019-04-29 15:01] VITALS: BP 136/55; PULSE 67
== END 2019-04-29 16:31 | disposition home or self-care (01) | DRG 177 ==
LOC: JER 09:59 → JERBED 12:19 → J4S 17:28
PROVIDERS: ADMIT Family Medicine; ATTEND Family Medicine
DX: J69.0 Pneumonitis due to inhalation of food and vomit (principal); J96.22 Acute and chronic respiratory failure with hypercapnia; E43 Unspecified severe protein-calorie malnutrition; J96.01 Acute respiratory failure with hypoxia; E87.2 Acidosis; C15.9 Malignant neoplasm of esophagus, unspecified; C78.7 Secondary malignant neoplasm of liver and intrahepatic bile duct; J44.1 Chronic obstructive pulmonary disease with (acute) exacerbation; R64 Cachexia; Z68.1 Body mass index [BMI] 19.9 or less, adult; E86.0 Dehydration; I10 Essential (primary) hypertension; I48.91 Unspecified atrial fibrillation; Z79.01 Long term (current) use of anticoagulants; D64.9 Anemia, unspecified; N40.0 Benign prostatic hyperplasia without lower urinary tract symptoms; Z87.891 Personal history of nicotine dependence; Z99.81 Dependence on supplemental oxygen; R13.10 Dysphagia, unspecified; I25.10 Atherosclerotic heart disease of native coronary artery without angina pectoris; F32.9 Major depressive disorder, single episode, unspecified; F41.9 Anxiety disorder, unspecified
CPT/HCPCS: 36415; 36600; 71045-TC-FY; 71250-TC; 80048; 80053; 81003; 82375; 82550; 82803; 83050; 84443; 84484; 85025; 85027; 85610; 87040; 87070; 87077; 87081; 87205; 87899; 93005; 93010; 94640; 97116-GP; 97161-GP; 99285-25

== ENCOUNTER 2019-06-14 11:30 | Inpatient (IN) | payer OTHER, MEDICARE ==
[2019-06-14] MEDS ORDERED: ALBUTEROL SO4 2.5/IPRATROPIUM 0.5 INH SOL 3 ML VIAL.NEB. NEB ONE ×3 (11:51→19:28)
--- NOTE | 2019-06-14 12:12 | PDOC ---
History of Present Illness - General Chief Complaint: Shortness of Breath Stated Complaint: Shortness of Breath Time Seen by Provider: 06/14/19 12:05 Past History - Past Medical History Allergies/Adverse Reactions: Allergies Allergy/AdvReac Type Severity Reaction Status Date / Time No Known Allergies Allergy Verified 04/25/19 10:06 Home Medications: Ambulatory Orders Alprazolam [Xanax] 1 mg PO QID 03/06/18 Folic Acid 1 mg PO DAILY 03/06/18 Diltiazem Cd [Cardizem Cd -] 120 mg PO DAILY #30 cap.cd.24h 03/19/18 Tamsulosin HCl [Flomax -] 0.8 mg PO DAILY@0830 30 Days #60 cap.er.24h 04/23/18 Albuterol 0.083% Nebulizer Verna [Ventolin 0.083% Nebulizer Soln -] 1 amp NEB Q4H PRN amp 12/29/18 Atenolol [Tenormin -] 25 mg PO DAILY 30 Days #30 tablet 12/29/18 Metoclopramide HCl [Reglan -] 10 mg PO ASDIR tablet 04/29/19 Pantoprazole Sodium [Protonix -] 40 mg PO DAILY #30 tablet.ec 04/29/19 Anemia: No Asthma: No Cancer: Yes Cardiac Disorders: Yes (A-fib) CVA: No COPD: Yes CHF: Yes Dementia: No Diabetes: No GI Disorders: No Disorders: Yes (BPH) HTN: Yes Hypercholesterolemia: No Liver Disease: No Seizures: No Thyroid Disease: No - Surgical History Abdominal Surgery: Yes (hernia) Appendectomy: Yes Cardiac Surgery: No Cholecystectomy: No GI Surgery: No Lung Surgery: No Neurologic Surgery: No Orthopedic Surgery: Yes (rt hip replacement) - Immunization History Immunization Up to Date: No - Psycho Social/Smoking Cessation Hx Smoking History: Former smoker Have you smoked in the past 12 months: No If you are a former smoker, when did you quit?: 1979 Hx Alcohol Use: No Drug/Substance Use Hx: No Substance Use Type: None Hx Substance Use Treatment: No ED Treatment Course - LABORATORY CBC & Chemistry Diagram: 06/15/19 08:10 06/15/19 08:10 Medical Decision Making - Medical Decision Making 06/14/19 15:01 HPI: 73yo M hx COPD on 3L O2 NC at home, hx PNAs and hospitalizations (last d/c here 04/29/19), HTN, Afib (on eliquis and cardinem), stage 4 esophageal carcinoma w/ liver mets (last chemo 12 days ago), anemia, BPH, and mild dementia BIBA from home c/o acute worsening of chronic SOB and productive cough x1-3days, and 1 day of b/l ankle swelling. Discharge 05/09/19 from here for COPD exacerbation on PO antibiotics and steroids, no longer one. Pt was in [facility]. Endorses chronic SOB but worse for the past few days, especially this AM, causing him to wake up SOB and can't walk between 2 rooms, ambulates with walker normally. SOB worse with exertion, nonpositional, sleeps with 2 pillows. Pt states he can feel the 3L O2 flowing right now but sometimes when SOB at home cannot feel it flowing so thinks there might be something wrong with the central O2 system. Endorses chronic cough productive of white phlegm x months, worse the past few days. Endorses b/l ankle swelling x1 day, denies trauma, rash, warmth, pain. Pt uses albuterol neb 4x/day and used it 1x this AM, not helping last few days. Denies calf tenderness, leg swelling besides ankles, hemoptysis, hormone use, recent travel, recent immobilization, recent surgery, hx DVT/PE, hx CAD, fever, chills , fatigue, headache, dizziness, numbness/tingling, weakness, vision changes, chest pain, chest tightness, palpitations, abdominal pain, blood in stool, diarrhea, constipation, nausea, vomiting, dysuria, hematuria, confusion. PCP - Darin Marshall - [facility] - Jet Curry at [facility] ROS: Constitutional: Negative for chills, fever, fatigue, diaphoresis. HENT: Negative for sore throat, rhinorrhea, congestion. Eyes: Negative for visual disturbance. Respiratory: Positive for shortness of breath, cough. Negative for wheezing. Cardiovascular: Positive for b/l ankle swelling. Negative for chest pain, palpitations. Gastrointestinal: Negative for abdominal pain, blood in stool, constipation, diarrhea, nausea, and vomiting. Genitourinary: Negative for dysuria, flank pain, and hematuria. Musculoskeletal: Negative for myalgias, back pain, and neck pain. Skin: Negative for rash. Neurological: Negative for light-headedness, dizziness, vertigo, syncope, weakness, numbness and headaches. Psychiatric/Behavioral: Negative for behavioral problems and confusion. PE: Gen: Alert, NAD, comfortable-appearing, on NC 3L O2 HEENT: PERRL, EOMI, MMM, NCAT. No conjunctival pallor. Sclera are non-icteric. Oropharynx is clear. CV: Regular rate, irregularly irregular rhythm. No murmurs, rubs, or gallops. PULM: No resp distress. CTAB, diminished BS diffusely, no wheezes, rales, or rhonchi. ABD: soft, NT/ND, no rebound tenderness or guarding, no CVA tenderness. BACK: No TTP of c/t/l-spine. No step-offs or deformities. MSK: No bony deformities. 2+ pulses in all extremities. NEURO: AAOx3. PERRL. No gross CN deficits. Strength and sensation grossly intact throughout. EXTREMITIES: 1+ PE b/l ankles. No cyanosis. No clubbing. No calf tenderness. PSYCH: Normal mood and thought pattern. SKIN: Warm and dry. Normal capillary refill. No rashes. No jaundice. 1cm diameter red (vascular-appearing), nonerythematous, nontender bump to R superior back. MDM: 73yo M hx COPD on 3L O2 NC at home, hx PNAs and hospitalizations (last d/c here 04/29/19), HTN, Afib (on eliquis and cardinem), stage 4 esophageal carcinoma w/ liver mets (last chemo 12 days ago), anemia, BPH, and mild dementia BIBA from home with acute worsening of chronic SOB and productive cough x1-3days, and 1 day of b/l ankle swelling. Hemodynamically stable, afebrile, diminished BS diffusely, pitting edema b/l ankles. Most consistent with PNA vs COPD exacerbation - nebulizers, labs including infectious workup, CXR. Also concern for CHF due to b/l ankle swelling , though no rales on exam - r/o with CXR and BNP. Lower concern for ACS/OK due to lack of hx of CAD and lack of chest pain, but r/o with EKG and trop. Also consider afib or arrythmia. Low concern for PE due to hx, lack of CP, lack of tachycardia, and lack of s/s of DVT, [place] 1 (malignancy), PERC not neg due to age and O2 sat - due to higher likelihood of other diagnoses, no further testing indicated at this time, but if w/u equivocal, consider d-dimer or CTPE. -Duonebs -EKG -CXR -CBC, CMP, Coags, Lact, VBG, Trop, BNP -Dispo: pending w/u and reassessment Labs reviewed. Of note, WBC 10.2, Hb 11.2, VBG consistent with chronic COPD no e /o acute exacerbation (pCO2 72.4, pH 7.31, HCO3 35.3), trop neg, BNP 207, lact 1.6. EKG reviewed: sinus rhythm with occasional PVCs, 74bpm, QTc 430, no e/o ischemia , normal axis CXR reviewed: consolidation consistent with PNA. Start tx for HCAP - Vanc and Zosyn. Pt reassessed - starting to feel a little better, lungs unchanged. 06/14/19 15:31 Will admit for increased oxygen requirement. Spoke with Dr Michelle, accepted admission. Discharge - Discharge Information Problems reviewed: Yes Clinical Impression/Diagnosis: COPD exacerbation Condition: Stable - Admission Yes - Follow up/Referral - Patient Discharge Instructions - Post Discharge Activity
[2019-06-14] MEDS ORDERED: PIPERACILLIN/TAZOB 3.375 GM 3.375 GM in DEXTROSE 5%-WATER - 50 ML IVPB ONE (13:14)
[2019-06-14] MEDS ORDERED: VANCOMYCIN 1,000 MG in DEXTROSE 5%-WATER - 250 ML IVPB ONE (13:14)
--- NOTE | 2019-06-14 13:17 | PDOC ---
Documentation entered by Esteban Velez SCRIBE, acting as scribe for Umesh Bradley MD. Umesh Bradley MD: This documentation has been prepared by the Agustin deleon Daniel, SCRIBE, under my direction and personally reviewed by me in its entirety. I confirm that the documentation accurately reflects all work, treatment, procedures, and medical decision making performed by me. Attending Attestation - Resident Resident Name: Negrita Whitehead - ED Attending Attestation I have performed the following: I have examined & evaluated the patient, The case was reviewed & discussed with the resident, I agree w/resident's findings & plan, Exceptions are as noted - HPI HPI: 06/14/19 12:39 The patient is a 73 year old male with a past medical history of COPD (3L at home), prior pneumonia requiring hospitalization, HTN, anemia, BPH, afib ( eliquis), and esophageal adenocarcinoma (stage 4 with mets to liver) on chemo, here today for evaluation of shortness of breath. The patient reports that he has been having worsening chronic shortness of breath over several days. He states that he wakes up with shortness of breath, notes dyspnea on exertion, but denies any orthopnea. He also notes a cough productive of white phlegm that has been worsening over the past 4 days. Patient denies headache, lightheadedness. Denies fever, chills. Denies chest pain. Denies nausea, vomiting, diarrhea, abdominal pain. Allergies: NKA PCP: Piyush Cordoba - Physicial Exam PE: 06/14/19 12:39 GENERAL: Awake, alert, and fully oriented, in no acute distress. HEAD: No signs of trauma EYES: PERRLA, EOMI, sclera anicteric, conjunctiva clear ENT: Auricles normal inspection, hearing grossly normal, nares patent, oropharynx clear without exudates. Moist mucosa NECK: Nontender, no stepoffs, Normal ROM, supple, no lymphadenopathy, JVD, or masses LUNGS: + coarse breath sounds bilaterally HEART: Regular rate and rhythm, normal S1 and S2, no murmurs, rubs or gallops ABDOMEN: Soft, nontender, normoactive bowel sounds. No guarding, no rebound. No masses EXTREMITIES: Normal range of motion, no edema. No clubbing or cyanosis. No cords, erythema, or tenderness NEUROLOGICAL: Cranial nerves II through XII intact. 5/5 strength and sensation in all extremities, Normal speech, normal gait, normal cerebellar function SKIN: Warm, Dry, normal turgor, no rashes or lesions noted. - Medical Decision Making 06/14/19 13:14 73 M with cough and SOB. Suspect PNA vs COPD exacerbation. - Labs - CXR - Abx
[2019-06-14 13:37] LABS: BASO % 1.4 % (0-2.0); EOS % 2.9 % (0-4.5); HEMATOCRIT 35.7 % (35.4-49); HEMOGLOBIN 11.2 GM/dL (11.7-16.9); LYMPH % 7.8 % (8-40); MCH 25.1 pg (25.7-33.7); MCHC 31.2 g/dl (32.0-35.9); MEAN CELL VOLUME 80.3 fl (80-96); MEAN PLT VOLUME 8.2 fl (7.5-11.1); MONO % 13.7 % (3.8-10.2); NEUT % 74.2 % (42.8-82.8); PLATELET COUNT 180 K/MM3 (134-434); RBC 4.45 M/mm3 (4.00-5.60); RDW 17.2 % (11.9-15.9); WHITE BLOOD COUNT 10.2 K/mm3 (4.0-10.0)
[2019-06-14 13:42] LABS: VENOUS PH 7.31 (7.31-7.41)
[2019-06-14 13:46] LABS: VENOUS PO2 < 49 mmHg (28-48)
[2019-06-14 13:47] LABS: VENOUS PC02 72.4 mmHg (38-52)
[2019-06-14 14:00] LABS: INR 0.97 (0.83-1.09); PROTHROMBIN TIME (PATIENT) 11.4 SEC (9.7-13.0)
[2019-06-14 14:03] LABS: ACTIVATED PTT 39.8 SECONDS (25.2-36.5)
[2019-06-14] MEDS ORDERED: VANCOMYCIN 1 GRAM (PRE-DOCKED) 1,000 MG/250 ML BAG IVPB ONE (14:31)
[2019-06-14 14:32] LABS: ALBUMIN 2.8 g/dl (3.4-5.0); BILIRUBIN,TOTAL 0.4 mg/dL (0.2-1); BLOOD UREA NITROGEN 4.9 mg/dL (7-18); CALCIUM 8.4 mg/dL (8.5-10.1); CREATININE 0.5 mg/dL (0.55-1.3); POTASSIUM 3.9 mmol/L (3.5-5.1); TOT PROT 6.4 g/dl (6.4-8.2)
[2019-06-14] MEDS ORDERED: PIPERACILLIN/TAZOB 3.375 GM 3.375 GM/50 ML BAG IVPB ONE (14:32)
[2019-06-14] MEDS ORDERED: SODIUM CHLORIDE 0.9% 500 ML INFUS.BAG IV ONE (15:08)
[2019-06-14] MEDS ORDERED: ALBUTEROL SO4 0.083% IH SOL 2.5 MG/3 ML VIAL.NEB. NEB PRN (15:43)
--- NOTE | 2019-06-14 15:54 | HP ---
Admitting History and Physical - Admission Chief Complaint: short of breath History of Present Illness: The patient is a 73 year old male with a past medical history of COPD (3L at home), prior pneumonia requiring hospitalization, HTN, anemia, BPH, afib ( eliquis), and esophageal adenocarcinoma (stage 4 with mets to liver) on chemo, here today for evaluation of shortness of breath. The patient reports that he has been having worsening chronic shortness of breath over several days. He states that he wakes up with shortness of breath, notes dyspnea on exertion, but denies any orthopnea. He also notes a cough productive of white phlegm that has been worsening over the past 4 days. Patient denies headache, lightheadedness. Denies fever, chills. Denies chest pain. Denies nausea, vomiting, diarrhea, abdominal pain. 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: Dementia (mild to moderate) Cardiovascular: Yes: AFIB, HTN Pulmonary: Yes: Bronchitis, COPD, O2 Dependent, Pneumonia Gastrointestinal: Yes: Cancer (distal esophageal mass - adenoca) Heme/Onc: Yes: Anemia, Other (esophageal Carcinoma with mets) Infectious Disease: Yes: MRSA (hx) Psych: Yes: Anxiety, Panic Musculoskeletal: Yes: Osteoarthritis Dermatology: Yes: Other (B/L feet scars/ scratches) - Past Surgical History Past Surgical History: Yes: Appendectomy, Hernia Repair, Permanent Pacemaker - Smoking History Smoking history: Former smoker Have you smoked in the past 12 months: No If you are a former smoker, when did you quit?: 1979 - Alcohol/Substance Use Hx Alcohol Use: No - Social History Usual Living Arrangement: Yes: With Spouse ADL: Support Services History of Recent Travel: No Home Medications - Allergies Allergies/Adverse Reactions: Allergies Allergy/AdvReac Type Severity Reaction Status Date / Time No Known Allergies Allergy Verified 04/25/19 10:06 - Home Medications Home Medications: Ambulatory Orders Alprazolam [Xanax] 1 mg PO QID 03/06/18 Folic Acid 1 mg PO DAILY 03/06/18 Albuterol 2.5/Ipratropium 0.5 [Duoneb -] 1 vial NEB QID PRN 03/09/18 Diltiazem Cd [Cardizem Cd -] 120 mg PO DAILY #30 cap.cd.24h 03/19/18 Tamsulosin HCl [Flomax -] 0.8 mg PO DAILY@0830 30 Days #60 cap.er.24h 04/23/18 Albuterol 0.083% Nebulizer Verna [Ventolin 0.083% Nebulizer Soln -] 1 amp NEB Q4H PRN amp 12/29/18 Atenolol [Tenormin -] 25 mg PO DAILY 30 Days #30 tablet 12/29/18 Amoxicillin/Potassium Clav [Augmentin 875-125 Tablet] 1 each PO BID 4 Days #7 tablet 04/29/19 Methylprednisolone [Medrol Dose Alexandre] 4 mg PO ASDIR #21 tablet 04/29/19 Metoclopramide HCl [Reglan -] 10 mg PO ASDIR tablet 04/29/19 Pantoprazole Sodium [Protonix -] 40 mg PO DAILY #30 tablet.ec 04/29/19 Polyethylene Glycol 3350 [Miralax 119 gm Btl -] 17 gm PO DAILY bottle 04/29/19 Physical Examination Vital Signs: Vital Signs Temperature 97.7 F 06/14/19 11:40 Pulse Rate 73 06/14/19 11:40 Respiratory Rate 24 H 06/14/19 11:40 Blood Pressure 117/51 L 06/14/19 11:40 O2 Sat by Pulse Oximetry (%) 96 06/14/19 11:40 Labs: CBC, BMP 06/14/19 12:44 06/14/19 12:44 Problem List - Problems (1) Acute on chronic respiratory failure with hypoxia and hypercapnia Code(s): J96.21 - ACUTE AND CHRONIC RESPIRATORY FAILURE WITH HYPOXIA; J96.22 - ACUTE AND CHRONIC RESPIRATORY FAILURE WITH HYPERCAPNIA (2) Acute respiratory failure Code(s): J96.00 - ACUTE RESPIRATORY FAILURE, UNSP W HYPOXIA OR HYPERCAPNIA (3) Anemia Code(s): D64.9 - ANEMIA, UNSPECIFIED (4) Adenocarcinoma of esophagus, stage 4 Code(s): C15.9 - MALIGNANT NEOPLASM OF ESOPHAGUS, UNSPECIFIED (5) COPD exacerbation Code(s): J44.1 - CHRONIC OBSTRUCTIVE PULMONARY DISEASE W (ACUTE) EXACERBATION (6) Liver masses Code(s): R16.0 - HEPATOMEGALY, NOT ELSEWHERE CLASSIFIED (7) Metastatic cancer Code(s): C79.9 - SECONDARY MALIGNANT NEOPLASM OF UNSPECIFIED SITE (8) MRSA (methicillin resistant Staphylococcus aureus) carrier Code(s): Z22.322 - CARRIER OR SUSPECTED CARRIER OF METHICILLIN RESIS STAPH (9) Pneumonia Code(s): J18.9 - PNEUMONIA, UNSPECIFIED ORGANISM Qualifiers: (10) Respiratory failure with hypoxia and hypercapnia Code(s): J96.91 - RESPIRATORY FAILURE, UNSPECIFIED WITH HYPOXIA; J96.92 - RESPIRATORY FAILURE, UNSPECIFIED WITH HYPERCAPNIA (11) Severe protein-calorie malnutrition Code(s): E43 - UNSPECIFIED SEVERE PROTEIN-CALORIE MALNUTRITION (12) Symptomatic anemia Code(s): D64.9 - ANEMIA, UNSPECIFIED (13) Atrial fibrillation Code(s): I48.91 - UNSPECIFIED ATRIAL FIBRILLATION Qualifiers: (14) Coronary artery disease Code(s): I25.10 - ATHSCL HEART DISEASE OF [place] CORONARY ARTERY W/O ANG PCTRS Qualifiers: (15) Emphysema of lung Code(s): J43.9 - EMPHYSEMA, UNSPECIFIED (16) HTN (hypertension) Code(s): I10 - ESSENTIAL (PRIMARY) HYPERTENSION Qualifiers: (17) Malnutrition Code(s): E46 - UNSPECIFIED PROTEIN-CALORIE MALNUTRITION
[2019-06-14] MEDS ORDERED: BUDESONIDE/FORMETEROL FUMARATE 160/4.5 mcg INHALER IH ONE (17:00)
[2019-06-14] MEDS ORDERED: methylPREDNISolone NA SUCC 125 MG/2 ML VIAL ONE (17:19)
[2019-06-14] MEDS: POLYETHYLENE GLYCOL 3350 119 GM BTL PO SCH (17:27)
[2019-06-14] MEDS: ALBUTEROL SO4 2.5/IPRATROPIUM 0.5 INH SOL 3 ML VIAL.NEB. NEB SCH ×2 (17:27→19:29)
[2019-06-14] MEDS: methylPREDNISolone NA SUCC 40 MG/1 ML VIAL IVPUSH SCH ×2 (17:27→22:30)
[2019-06-14 19:22] LABS: EPI CELLS 7.9 /HPF (0-5/HPF); HYALINE CASTS 8 /lpf (0-8); URINE APPEARANCE CLEAR; URINE BACTERIA 5.5 /hpf (NEGATIVE); URINE BILIRUBIN NEGATIVE (NEGATIVE); URINE COLOR YELLOW; URINE GLUCOSE (UA) NEGATIVE (NEGATIVE); URINE KETONE NEGATIVE (NEGATIVE); URINE LEUK ESTERASE 3+ (NEGATIVE); URINE NITRITE NEGATIVE (NEGATIVE); URINE PROTEIN NEGATIVE (NEGATIVE); URINE RBC 2 /hpf (0-4); URINE UROBILINOGEN 0.2 mg/dL (0.2-1.0); URINE WBC 85 /hpf (0-5)
[2019-06-14] MEDS ORDERED: ALPRAZolam 1 MG TABLET ONE (19:23)
[2019-06-14] MEDS: ALPRAZolam 1 MG TABLET PO SCH ×2 (19:27→23:38)
[2019-06-14 19:54] LABS: YEAST MODERATE (NEGATIVE)
[2019-06-14] MEDS ORDERED: HYDROCORTISONE SOD SUCCINATE 2 ML ONE (21:37)
[2019-06-15] MEDS ORDERED: PT OWN MED DRAWER 7, Y5N ONE (01:57)
[2019-06-15] MEDS: methylPREDNISolone NA SUCC 40 MG/1 ML VIAL IVPUSH SCH ×3 (02:33→17:01)
[2019-06-15 08:34] LABS: HEMATOCRIT 34.9 % (35.4-49); MCHC 31.5 g/dl (32.0-35.9); MEAN CELL VOLUME 79.3 fl (80-96); MEAN PLT VOLUME 8.2 fl (7.5-11.1); PLATELET COUNT 190 K/MM3 (134-434); RDW 16.9 % (11.9-15.9); WHITE BLOOD COUNT 6.1 K/mm3 (4.0-10.0)
[2019-06-15] MEDS: TAMSULOSIN HCL 0.4 MG CAP PO SCH (09:06)
[2019-06-15] MEDS: ALPRAZolam 1 MG TABLET PO SCH ×4 (09:08→22:08)
[2019-06-15] MEDS: FOLIC ACID 1 MG TABLET (FP) PO SCH (09:08)
[2019-06-15] MEDS: PANTOPRAZOLE 40 MG TABLET (FP) PO SCH (09:08)
[2019-06-15] MEDS: ALBUTEROL SO4 2.5/IPRATROPIUM 0.5 INH SOL 3 ML VIAL.NEB. NEB SCH ×4 (09:13→20:55)
[2019-06-15 09:17] LABS: ANION GAP 6 MMOL/L (8-16); BLOOD UREA NITROGEN 5.5 mg/dL (7-18); CHLORIDE 98 mmol/L (98-107); CO2 33 mmol/L (21-32); CREATININE 0.3 mg/dL (0.55-1.3); GLUCOSE,RANDOM 142 mg/dL (74-106); MAGNESIUM 2.1 mg/dL (1.8-2.4); POTASSIUM 4.4 mmol/L (3.5-5.1); SODIUM 137 mmol/L (136-145)
[2019-06-15] MEDS: POLYETHYLENE GLYCOL 3350 119 GM BTL PO SCH (10:17)
--- NOTE | 2019-06-15 10:43 | EKG ---
Test Reason : Blood Pressure : / mmHG Vent. Rate : 074 BPM Atrial Rate : 074 BPM P-R Int : 152 ms QRS Dur : 068 ms QT Int : 388 ms P-R-T Axes : 072 069 076 degrees QTc Int : 430 ms POOR DATA QUALITY, INTERPRETATION MAY BE ADVERSELY AFFECTED SINUS RHYTHM WITH OCCASIONAL PREMATURE VENTRICULAR COMPLEXES AND FUSION COMPLEXES ANTEROSEPTAL INFARCT (CITED ON OR BEFORE 15-APR-2018) ABNORMAL ECG Confirmed by MD NIKKI, MAGED ([id number]) on 06/15/2019 10:42:45 AM Referred By: Confirmed By:MAGED JORDAN MD
[2019-06-15] MEDS: ATENOLOL 25 MG TABLET (FP) PO SCH (11:19)
--- NOTE | 2019-06-15 11:41 | CON.PULM ---
Consult Consult Specialty:: PULMONARY Referred by:: Dr Michelle Reason for Consultation:: shortness of breath - History of Present Illness Chief Complaint: shortness of breath History of Present Illness: 73yo male with h/o HTN, COPD, chronic hypoxic and hypercapneic respiratory failure on home O2, atrial fibrillation, stage 4 esophageal adenocarcinoma on chemotherapy who was admitted with worsening shortness of breath x 4 days. No fevers, chills or sweats. +cough productive of white sputum which is his chronic cough. Last chemo was 2 weeks ago. No chest pain or palpitations. 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: Dementia (mild to moderate) Cardio/Vascular: Yes: AFIB, HTN Pulmonary: Yes: Bronchitis, COPD, O2 Dependent, Pneumonia Gastrointestinal: Yes: Cancer (distal esophageal mass - adenoca) Infectious Disease: Yes: MRSA (hx) Psych: Yes: Anxiety, Panic Musculoskeletal: Yes: Osteoarthritis Dermatology: Yes: Other (B/L feet scars/ scratches) - Past Surgical History Past Surgical History: Yes: Appendectomy, Hernia Repair, Permanent Pacemaker - Alcohol/Substance Use Hx Alcohol Use: Yes - Smoking History Smoking history: Former smoker Have you smoked in the past 12 months: No If you are a former smoker, when did you quit?: 1979 - Social History ADL: Support Services History of Recent Travel: No Home Medications - Allergies Allergies/Adverse Reactions: Allergies Allergy/AdvReac Type Severity Reaction Status Date / Time No Known Allergies Allergy Verified 04/25/19 10:06 - Home Medications Home Medications: Ambulatory Orders Alprazolam [Xanax] 1 mg PO QID 03/06/18 Folic Acid 1 mg PO DAILY 03/06/18 Diltiazem Cd [Cardizem Cd -] 120 mg PO DAILY #30 cap.cd.24h 03/19/18 Tamsulosin HCl [Flomax -] 0.8 mg PO DAILY@0830 30 Days #60 cap.er.24h 04/23/18 Albuterol 0.083% Nebulizer Verna [Ventolin 0.083% Nebulizer Soln -] 1 amp NEB Q4H PRN amp 12/29/18 Atenolol [Tenormin -] 25 mg PO DAILY 30 Days #30 tablet 12/29/18 Metoclopramide HCl [Reglan -] 10 mg PO ASDIR tablet 04/29/19 Pantoprazole Sodium [Protonix -] 40 mg PO DAILY #30 tablet.ec 04/29/19 Review of Systems - Review of Systems Constitutional: denies: Chills, Fever Eyes: denies: Recent Change in Vision HENT: denies: Nasal Congestion, Throat Pain Neck: denies: Stiffness, Tenderness Cardiovascular: reports: Shortness of Breath. denies: Chest Pain Respiratory: reports: Cough. denies: Hemoptysis, Wheezing Gastrointestinal: denies: Abdominal Pain, Nausea, Vomiting Genitourinary: denies: Dysuria, Hematuria Neurological: denies: Dizziness, Headache Endocrine: denies: Unexplained Weight Loss Physical Exam Vital Sings: Vital Signs Temperature 97.8 F 06/15/19 09:18 Pulse Rate 70 06/15/19 09:18 Respiratory Rate 20 06/15/19 09:18 Blood Pressure 132/56 L 06/15/19 09:18 O2 Sat by Pulse Oximetry (%) 94 L 06/14/19 23:21 Constitutional: Yes: Calm Eyes: Yes: Conjunctiva Clear, EOM Intact HENT: Yes: Atraumatic, Normocephalic Neck: Yes: Trachea Midline Cardiovascular: Yes: Regular Rate and Rhythm Respiratory: Yes: Rhonchi (scattered) ...Clubbing: No Gastrointestinal: Yes: Normal Bowel Sounds, Soft. No: Tenderness Edema: No Neurological: Yes: Alert, Oriented Labs: CBC, BMP 06/15/19 08:10 06/15/19 08:10 Imaging - Results Chest X-ray: Report Reviewed, Image Reviewed (LLL infiltrate appears chronic) Problem List - Problems (1) COPD exacerbation Code(s): J44.1 - CHRONIC OBSTRUCTIVE PULMONARY DISEASE W (ACUTE) EXACERBATION Assessment/Plan Acute on Chronic Hypoxic and Hypercapneic Respiratory Failure Acute COPD Exacerbation Atrial Fibrillation Metastatic Esophageal Cancer on Chemo HTN Anemia - IV medrol, can reduce dose to 40mg q8h - inhaled bronchodilators - O2 to keep SpO2 >90% - rate control - continue anticoagulation - BiPAP as needed Thank you for this consult Khris Jordan MD
--- NOTE | 2019-06-15 12:18 | PN ---
Progress Note (short form) - Note Progress Note: ID CONSULT DICTATED ACUTE EXACERBATION COPD ? PNEUMONIA R/O NON NEUTROPENIC SEPSIS HX METASTATIC ADENOCARCINOMA HX MRSA AWAIT C/S EMPIRIC CEFTRIAXONE
--- NOTE | 2019-06-15 12:20 | PN ---
Progress Note (short form) - Note Progress Note: sittingin bed comfortable states breathing improved Vital Signs Period Temp Pulse Resp BP Sys/Cleaning Pulse Ox Last 24 Hr 97.3 F-98.2 F 58-81 20-24 121-149/51-68 94-100 neck supple heart S1/S2 irr lungs decreased BS bilat fine exp wheezing ext CBC, BMP 06/15/19 08:10 06/15/19 08:10 Active Medications Albuterol Sulfate (Ventolin 0.083% Nebulizer Soln -) 1 amp NEB Q4H PRN PRN Reason: SHORT OF BREATH/WHEEZING Albuterol/Ipratropium (Duoneb -) 1 amp NEB RQID [facility] Last Admin: 06/15/19 09:13 Dose: 1 amp Alprazolam (Xanax) 1 mg PO QID [facility] Last Admin: 06/15/19 09:08 Dose: 1 mg Atenolol (Tenormin -) 25 mg PO DAILY [facility] Last Admin: 06/15/19 11:19 Dose: 25 mg Diltiazem HCl (Cardizem Cd -) 120 mg PO DAILY [facility] Last Admin: 06/15/19 11:20 Dose: Not Given Folic Acid (Folic Acid -) 1 mg PO DAILY [facility] Last Admin: 06/15/19 09:08 Dose: 1 mg Methylprednisolone Sodium Succinate (Solu-Medrol -) 40 mg IVPUSH Q8H [facility] Metoclopramide HCl (Reglan -) 10 mg PO ASDIR [facility] Pantoprazole Sodium (Protonix -) 40 mg PO DAILY [facility] Last Admin: 06/15/19 09:08 Dose: 40 mg Polyethylene Glycol (Miralax (For Daily Use) -) 17 gm PO DAILY [facility] Last Admin: 06/15/19 10:17 Dose: 17 gm Tamsulosin HCl (Flomax -) 0.8 mg PO DAILY@0830 [facility] Last Admin: 06/15/19 09:06 Dose: 0.8 mg Asssmt / plan # COPD acute exacerbation Chronic hypoxic and Hypercapneic resp failure - acute decompensation IV steroids /inhalers/ O2 / Bipap pulmonary consult # Atrial fib rate control -continue CCB / BB continue a/c # esophageal adenocarcinoma (stage 4 with mets to liver) on chemo last chemo 2 weeks ago # HTN continue medication monitor for hypotension # anemia H/H has been stable # 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 # cognitive decline Problem List - Problems (1) Acute on chronic respiratory failure with hypoxia and hypercapnia Code(s): J96.21 - ACUTE AND CHRONIC RESPIRATORY FAILURE WITH HYPOXIA; J96.22 - ACUTE AND CHRONIC RESPIRATORY FAILURE WITH HYPERCAPNIA (2) Acute respiratory failure Code(s): J96.00 - ACUTE RESPIRATORY FAILURE, UNSP W HYPOXIA OR HYPERCAPNIA (3) Anemia Code(s): D64.9 - ANEMIA, UNSPECIFIED (4) Adenocarcinoma of esophagus, stage 4 Code(s): C15.9 - MALIGNANT NEOPLASM OF ESOPHAGUS, UNSPECIFIED (5) COPD exacerbation Code(s): J44.1 - CHRONIC OBSTRUCTIVE PULMONARY DISEASE W (ACUTE) EXACERBATION (6) Liver masses Code(s): R16.0 - HEPATOMEGALY, NOT ELSEWHERE CLASSIFIED (7) Metastatic cancer Code(s): C79.9 - SECONDARY MALIGNANT NEOPLASM OF UNSPECIFIED SITE (8) MRSA (methicillin resistant Staphylococcus aureus) carrier Code(s): Z22.322 - CARRIER OR SUSPECTED CARRIER OF METHICILLIN RESIS STAPH (9) Pneumonia Code(s): J18.9 - PNEUMONIA, UNSPECIFIED ORGANISM Qualifiers: (10) Respiratory failure with hypoxia and hypercapnia Code(s): J96.91 - RESPIRATORY FAILURE, UNSPECIFIED WITH HYPOXIA; J96.92 - RESPIRATORY FAILURE, UNSPECIFIED WITH HYPERCAPNIA (11) Severe protein-calorie malnutrition Code(s): E43 - UNSPECIFIED SEVERE PROTEIN-CALORIE MALNUTRITION (12) Symptomatic anemia Code(s): D64.9 - ANEMIA, UNSPECIFIED (13) Atrial fibrillation Code(s): I48.91 - UNSPECIFIED ATRIAL FIBRILLATION Qualifiers: (14) Coronary artery disease Code(s): I25.10 - ATHSCL HEART DISEASE OF [place] CORONARY ARTERY W/O ANG PCTRS Qualifiers: (15) Emphysema of lung Code(s): J43.9 - EMPHYSEMA, UNSPECIFIED (16) HTN (hypertension) Code(s): I10 - ESSENTIAL (PRIMARY) HYPERTENSION Qualifiers: (17) Malnutrition Code(s): E46 - UNSPECIFIED PROTEIN-CALORIE MALNUTRITION
[2019-06-15] MEDS ORDERED: DEXTROSE 5%-WATER 100 ML IVPB ONE (12:42)
--- NOTE | 2019-06-15 12:48 | CONS ---
DATE OF CONSULTATION: DATE OF DICTATION: 06/15/2019 HISTORY: The patient is a 73-year-old male with a history of COPD on home oxygen evaluated for possible pneumonia. He was admitted to the hospital on June 14, 2019 with a 4-day history of worsening shortness of breath. He also reports cough productive of whitish sputum. He was evaluated in the emergency room and was admitted with an acute exacerbation of COPD. Chest x-ray shows increased markings bilaterally, which does not appear significantly changed from previous x-ray. He denies any chest pain, purulent sputum production, or hemoptysis. He denies any associated fever or chills. Patient has a history of COPD and is on home oxygen. He has had several recent hospitalizations most recent of which was in early April of this year. PAST MEDICAL HISTORY: Positive for COPD, hypertension, BPH, adenocarcinoma of the esophagus without liver metastases status post chemotherapy approximately 10 days ago. PAST SURGICAL HISTORY: Status post port placement and right total hip replacement. ALLERGIES: No known allergies. MEDICATIONS: Include albuterol, Xanax, atenolol, methylprednisolone, vancomycin, Zosyn. SOCIAL HISTORY: Former smoker. Lives in the community. SYSTEMS REVIEW: Neurologic: No loss of consciousness, seizure activity, focal weakness. Cardiac: Negative chest pain or palpitations. Respiratory: As per HPI. Gastrointestinal: Negative vomiting or diarrhea. Genitourinary: Negative for urinary tract infection. LABORATORY DATA: White count on admission 10.2, presently 6.1 with 74% neutrophils, hematocrit 34.9, platelets 190, creatinine 0.3. Urinalysis 85 white cells. Blood and urine cultures pending. Chest x-ray as described. PHYSICAL EXAMINATION: General: He is awake and alert. Seated in bed in no acute distress. His breathing is nonlabored on nasal cannula. Vital Signs: Temperature 97.8, blood pressure 132/56, pulse 70 regular, respirations 20 per minute. HEENT: Sclerae anicteric. Heart: Sounds S1, S2. Lungs: Diminished breath sounds bilaterally. Abdomen: Soft, nontender. Extremities: Negative for edema. Negative Homans sign. IMPRESSION: 1. Acute exacerbation of chronic obstructive pulmonary disease. 2. Possible community-acquired pneumonia. 3. Rule out nonneutropenic sepsis. 4. History of metastatic adenocarcinoma. 5. History of methicillin-resistant Staphylococcus aureus. PLAN: Await cultures. Obtain sputum culture, urine Legionella, and pneumococcal antigen. Empiric antibiotic coverage with ceftriaxone in this nonneutropenic patient. Pulmonary evaluation. Thank you for the kind referral. CAM BRENNAN M.D. [id number]
[2019-06-15] MEDS: CEFTRIAXONE 2 GM in DEXTROSE 5%-WATER 100 ML IVPB SCH (12:55)
[2019-06-16] MEDS: methylPREDNISolone NA SUCC 40 MG/1 ML VIAL IVPUSH SCH ×3 (01:56→22:58)
[2019-06-16] MEDS: INSULIN SLIDING SCALE (NOVOLOG) 1 VIAL SQ SCH ×4 (06:24→22:58)
[2019-06-16] MEDS: METOCLOPRAMIDE HCL 10 MG TABLET (FP) PO SCH ×3 (06:26→17:46)
[2019-06-16] MEDS: ALBUTEROL SO4 2.5/IPRATROPIUM 0.5 INH SOL 3 ML VIAL.NEB. NEB SCH ×4 (08:50→16:12)
--- NOTE | 2019-06-16 11:07 | PN ---
Progress Note (short form) - Note Progress Note: sitting in chair comfortable states breathing improved Vital Signs Period Temp Pulse Resp BP Sys/Cleaning Pulse Ox Last 24 Hr 97.7 F-98.7 F 58-75 18-84 118-133/53-70 97 neck supple heart S1/S2 irr lungs decreased BS bilat no wheezing CBC, BMP 06/15/19 08:10 06/15/19 08:10 CBC, BMP 06/15/19 08:10 06/15/19 08:10 Microbiology 06/14/19 18:15 Urine - Urine Clean Catch Urine Culture - Final Yeast Like Organism 06/14/19 12:42 Blood - Peripheral Venous Blood Culture - Preliminary NO GROWTH OBTAINED AFTER 24 HOURS, INCUBATION TO CONTINUE FOR 4 DAYS. 06/14/19 12:42 Blood - Peripheral Venous Blood Culture - Preliminary NO GROWTH OBTAINED AFTER 24 HOURS, INCUBATION TO CONTINUE FOR 4 DAYS. Active Medications Albuterol Sulfate (Ventolin 0.083% Nebulizer Soln -) 1 amp NEB Q4H PRN PRN Reason: SHORT OF BREATH/WHEEZING Albuterol/Ipratropium (Duoneb -) 1 amp NEB RQID [facility] Last Admin: 06/16/19 09:51 Dose: 1 amp Alprazolam (Xanax) 1 mg PO QID [facility] Last Admin: 06/15/19 22:08 Dose: 1 mg Atenolol (Tenormin -) 25 mg PO DAILY [facility] Last Admin: 06/15/19 11:19 Dose: 25 mg Folic Acid (Folic Acid -) 1 mg PO DAILY [facility] Last Admin: 06/15/19 09:08 Dose: 1 mg Ceftriaxone Sodium 2 gm/ (Dextrose) 100 mls @ 200 mls/hr IVPB DAILY [facility]; Protocol Last Admin: 06/15/19 12:55 Dose: 200 mls/hr Insulin Aspart (Novolog Vial Sliding Scale -) 1 vial SQ ACHS [facility]; Protocol Last Admin: 06/16/19 06:24 Dose: Not Given Methylprednisolone Sodium Succinate (Solu-Medrol -) 40 mg IVPUSH Q8H-IV [facility] Last Admin: 06/16/19 01:56 Dose: 40 mg Metoclopramide HCl (Reglan -) 10 mg PO TIDAC [facility] Last Admin: 06/16/19 06:26 Dose: 10 mg Pantoprazole Sodium (Protonix -) 40 mg PO DAILY [facility] Last Admin: 06/15/19 09:08 Dose: 40 mg Polyethylene Glycol (Miralax (For Daily Use) -) 17 gm PO DAILY [facility] Last Admin: 06/15/19 10:17 Dose: 17 gm Tamsulosin HCl (Flomax -) 0.8 mg PO DAILY@0830 [facility] Last Admin: 06/15/19 09:06 Dose: 0.8 mg Asssmt / plan # COPD acute exacerbation Chronic hypoxic and Hypercapneic resp failure - acute decompensation IV steroids /inhalers/ O2 / Bipap pulmonary consult taper steroids # Atrial fib rate control -continue CCB / BB continue a/c # esophageal adenocarcinoma (stage 4 with mets to liver) on chemo last chemo 2 weeks ago # HTN continue medication monitor for hypotension # anemia H/H has been stable # anxiety fdc use of benzo will continue # cognitive decline Problem List - Problems (1) Acute on chronic respiratory failure with hypoxia and hypercapnia Code(s): J96.21 - ACUTE AND CHRONIC RESPIRATORY FAILURE WITH HYPOXIA; J96.22 - ACUTE AND CHRONIC RESPIRATORY FAILURE WITH HYPERCAPNIA (2) Acute respiratory failure Code(s): J96.00 - ACUTE RESPIRATORY FAILURE, UNSP W HYPOXIA OR HYPERCAPNIA (3) Anemia Code(s): D64.9 - ANEMIA, UNSPECIFIED (4) Adenocarcinoma of esophagus, stage 4 Code(s): C15.9 - MALIGNANT NEOPLASM OF ESOPHAGUS, UNSPECIFIED (5) COPD exacerbation Code(s): J44.1 - CHRONIC OBSTRUCTIVE PULMONARY DISEASE W (ACUTE) EXACERBATION (6) Liver masses Code(s): R16.0 - HEPATOMEGALY, NOT ELSEWHERE CLASSIFIED (7) Metastatic cancer Code(s): C79.9 - SECONDARY MALIGNANT NEOPLASM OF UNSPECIFIED SITE (8) MRSA (methicillin resistant Staphylococcus aureus) carrier Code(s): Z22.322 - CARRIER OR SUSPECTED CARRIER OF METHICILLIN RESIS STAPH (9) Pneumonia Code(s): J18.9 - PNEUMONIA, UNSPECIFIED ORGANISM Qualifiers: (10) Respiratory failure with hypoxia and hypercapnia Code(s): J96.91 - RESPIRATORY FAILURE, UNSPECIFIED WITH HYPOXIA; J96.92 - RESPIRATORY FAILURE, UNSPECIFIED WITH HYPERCAPNIA (11) Severe protein-calorie malnutrition Code(s): E43 - UNSPECIFIED SEVERE PROTEIN-CALORIE MALNUTRITION (12) Symptomatic anemia Code(s): D64.9 - ANEMIA, UNSPECIFIED (13) Atrial fibrillation Code(s): I48.91 - UNSPECIFIED ATRIAL FIBRILLATION Qualifiers: (14) Coronary artery disease Code(s): I25.10 - ATHSCL HEART DISEASE OF [place] CORONARY ARTERY W/O ANG PCTRS Qualifiers: (15) Emphysema of lung Code(s): J43.9 - EMPHYSEMA, UNSPECIFIED (16) HTN (hypertension) Code(s): I10 - ESSENTIAL (PRIMARY) HYPERTENSION Qualifiers: (17) Malnutrition Code(s): E46 - UNSPECIFIED PROTEIN-CALORIE MALNUTRITION
[2019-06-16] MEDS ORDERED: DEXTROSE 5%-WATER 100 ML IVPB ONE (11:13)
[2019-06-16] MEDS: ALPRAZolam 1 MG TABLET PO SCH ×4 (11:17→22:58)
[2019-06-16] MEDS: PANTOPRAZOLE 40 MG TABLET (FP) PO SCH (11:17)
[2019-06-16] MEDS: ATENOLOL 25 MG TABLET (FP) PO SCH (11:17)
[2019-06-16] MEDS: CEFTRIAXONE 2 GM in DEXTROSE 5%-WATER 100 ML IVPB SCH (11:17)
[2019-06-16] MEDS: FOLIC ACID 1 MG TABLET (FP) PO SCH (11:18)
[2019-06-16] MEDS: TAMSULOSIN HCL 0.4 MG CAP PO SCH (11:20)
[2019-06-16] MEDS: POLYETHYLENE GLYCOL 3350 119 GM BTL PO SCH (11:27)
--- NOTE | 2019-06-16 12:48 | PN ---
Progress Note, Physician History of Present Illness: PULMONARY ALERT,OOB-CHAIR,BREATHING BETTER - Current Medication List Current Medications: Active Medications Albuterol Sulfate (Ventolin 0.083% Nebulizer Soln -) 1 amp NEB Q4H PRN PRN Reason: SHORT OF BREATH/WHEEZING Albuterol/Ipratropium (Duoneb -) 1 amp NEB RQID [facility] Last Admin: 06/16/19 12:02 Dose: 1 amp Alprazolam (Xanax) 1 mg PO QID [facility] Last Admin: 06/16/19 11:17 Dose: 1 mg Atenolol (Tenormin -) 25 mg PO DAILY [facility] Last Admin: 06/16/19 11:17 Dose: 25 mg Folic Acid (Folic Acid -) 1 mg PO DAILY [facility] Last Admin: 06/16/19 11:18 Dose: 1 mg Ceftriaxone Sodium 2 gm/ (Dextrose) 100 mls @ 200 mls/hr IVPB DAILY [facility]; Protocol Last Admin: 06/16/19 11:17 Dose: 200 mls/hr Insulin Aspart (Novolog Vial Sliding Scale -) 1 vial SQ ACHS [facility]; Protocol Last Admin: 06/16/19 12:08 Dose: Not Given Methylprednisolone Sodium Succinate (Solu-Medrol -) 40 mg IVPUSH BID [facility] Metoclopramide HCl (Reglan -) 10 mg PO TIDAC [facility] Last Admin: 06/16/19 11:17 Dose: 10 mg Pantoprazole Sodium (Protonix -) 40 mg PO DAILY [facility] Last Admin: 06/16/19 11:17 Dose: 40 mg Polyethylene Glycol (Miralax (For Daily Use) -) 17 gm PO DAILY [facility] Last Admin: 06/16/19 11:27 Dose: 17 gm Tamsulosin HCl (Flomax -) 0.8 mg PO DAILY@0830 [facility] Last Admin: 06/16/19 11:20 Dose: 0.8 mg - Objective Vital Signs: Vital Signs Temperature 97.7 F 06/16/19 06:00 Pulse Rate 58 L 06/16/19 06:00 Respiratory Rate 20 06/16/19 06:00 Blood Pressure 130/63 06/16/19 06:00 O2 Sat by Pulse Oximetry (%) 97 06/15/19 21:00 Constitutional: Yes: Calm, Thin Eyes: Yes: WNL HENT: Yes: WNL Neck: Yes: WNL Cardiovascular: Yes: Pulse Irregular, S1, S2 Respiratory: Yes: Rales Gastrointestinal: Yes: Normal Bowel Sounds, Soft Extremities: Yes: WNL Edema: No Labs: CBC, BMP 06/15/19 08:10 06/15/19 08:10 INR, PTT INR 0.97 (0.83-1.09) 06/14/19 12:44 Problem List - Problems (1) Acute on chronic respiratory failure with hypoxia and hypercapnia Code(s): J96.21 - ACUTE AND CHRONIC RESPIRATORY FAILURE WITH HYPOXIA; J96.22 - ACUTE AND CHRONIC RESPIRATORY FAILURE WITH HYPERCAPNIA (2) Adenocarcinoma of esophagus, stage 4 Code(s): C15.9 - MALIGNANT NEOPLASM OF ESOPHAGUS, UNSPECIFIED (3) COPD exacerbation Code(s): J44.1 - CHRONIC OBSTRUCTIVE PULMONARY DISEASE W (ACUTE) EXACERBATION (4) Atrial fibrillation Code(s): I48.91 - UNSPECIFIED ATRIAL FIBRILLATION Qualifiers: (5) Coronary artery disease Code(s): I25.10 - ATHSCL HEART DISEASE OF [place] CORONARY ARTERY W/O ANG PCTRS Qualifiers: (6) HTN (hypertension) Code(s): I10 - ESSENTIAL (PRIMARY) HYPERTENSION Qualifiers: Assessment/Plan Problem List - Problems (1) COPD exacerbation Code(s): J44.1 - CHRONIC OBSTRUCTIVE PULMONARY DISEASE W (ACUTE) EXACERBATION Assessment/Plan Acute on Chronic Hypoxic and Hypercapneic Respiratory Failure Acute COPD Exacerbation Atrial Fibrillation Metastatic Esophageal Cancer on Chemo HTN Anemia - IV medrol - inhaled bronchodilators - O2 to keep SpO2 >90% - rate control - continue anticoagulation - BiPAP as needed DR COREAS
[2019-06-16 12:57] VITALS: BMI 17.7
--- NOTE | 2019-06-16 23:49 | PN ---
Progress Note, Physician History of Present Illness: OOB IN CHAIR NO COMPLAINTS OFFERRED BREATHING SL LABORED ON NASAL CANNULA O2 AFEBRILE SPUTUM C/S PENDING - Current Medication List Current Medications: Active Medications Albuterol Sulfate (Ventolin 0.083% Nebulizer Soln -) 1 amp NEB Q4H PRN PRN Reason: SHORT OF BREATH/WHEEZING Albuterol/Ipratropium (Duoneb -) 1 amp NEB RQID [facility] Last Admin: 06/16/19 16:12 Dose: 1 amp Alprazolam (Xanax) 1 mg PO QID [facility] Last Admin: 06/16/19 22:58 Dose: 1 mg Atenolol (Tenormin -) 25 mg PO DAILY [facility] Last Admin: 06/16/19 11:17 Dose: 25 mg Folic Acid (Folic Acid -) 1 mg PO DAILY [facility] Last Admin: 06/16/19 11:18 Dose: 1 mg Ceftriaxone Sodium 2 gm/ (Dextrose) 100 mls @ 200 mls/hr IVPB DAILY [facility]; Protocol Last Admin: 06/16/19 11:17 Dose: 200 mls/hr Insulin Aspart (Novolog Vial Sliding Scale -) 1 vial SQ ACHS [facility]; Protocol Last Admin: 06/16/19 22:58 Dose: Not Given Methylprednisolone Sodium Succinate (Solu-Medrol -) 40 mg IVPUSH BID [facility] Last Admin: 06/16/19 22:58 Dose: 40 mg Metoclopramide HCl (Reglan -) 10 mg PO TIDAC [facility] Last Admin: 06/16/19 17:46 Dose: 10 mg Pantoprazole Sodium (Protonix -) 40 mg PO DAILY [facility] Last Admin: 06/16/19 11:17 Dose: 40 mg Polyethylene Glycol (Miralax (For Daily Use) -) 17 gm PO DAILY [facility] Last Admin: 06/16/19 11:27 Dose: 17 gm Tamsulosin HCl (Flomax -) 0.8 mg PO DAILY@0830 [facility] Last Admin: 06/16/19 11:20 Dose: 0.8 mg - Objective Vital Signs: Vital Signs Temperature 97.7 F 06/16/19 18:00 Pulse Rate 76 06/16/19 18:00 Respiratory Rate 20 06/16/19 18:00 Blood Pressure 119/59 L 06/16/19 18:00 O2 Sat by Pulse Oximetry (%) 97 06/16/19 09:00 Constitutional: Yes: No Distress Eyes: Yes: Conjunctiva Clear Cardiovascular: Yes: Regular Rate and Rhythm, S1, S2 Respiratory: Yes: CTA Bilaterally Gastrointestinal: Yes: Normal Bowel Sounds, Soft Labs: CBC, BMP 06/15/19 08:10 06/15/19 08:10 INR, PTT INR 0.97 (0.83-1.09) 06/14/19 12:44 Assessment/Plan EXACERBATION COPD PNEUMONIA METASTATIC CA HX MRSA AWAIT C/S CONTINUE CEFTRIAXONE MONITOR WBC
[2019-06-17] MEDS: METOCLOPRAMIDE HCL 10 MG TABLET (FP) PO SCH ×3 (06:33→18:39)
[2019-06-17] MEDS: INSULIN SLIDING SCALE (NOVOLOG) 1 VIAL SQ SCH ×4 (06:33→21:56)
[2019-06-17] MEDS: ALBUTEROL SO4 2.5/IPRATROPIUM 0.5 INH SOL 3 ML VIAL.NEB. NEB SCH ×4 (07:25→21:07)
[2019-06-17] MEDS: ALPRAZolam 1 MG TABLET PO SCH ×4 (07:53→23:10)
[2019-06-17] MEDS: TAMSULOSIN HCL 0.4 MG CAP PO SCH (07:54)
[2019-06-17] MEDS ORDERED: DEXTROSE 5%-WATER 100 ML IVPB ONE (10:15)
[2019-06-17] MEDS: FOLIC ACID 1 MG TABLET (FP) PO SCH (10:25)
[2019-06-17] MEDS: PANTOPRAZOLE 40 MG TABLET (FP) PO SCH (10:25)
[2019-06-17] MEDS: methylPREDNISolone NA SUCC 40 MG/1 ML VIAL IVPUSH SCH ×2 (10:25→21:56)
[2019-06-17] MEDS: ATENOLOL 25 MG TABLET (FP) PO SCH (10:25)
[2019-06-17] MEDS: CEFTRIAXONE 2 GM in DEXTROSE 5%-WATER 100 ML IVPB SCH (10:26)
--- NOTE | 2019-06-17 10:55 | PN ---
Progress Note (short form) - Note Progress Note: 73 y/o male found sitting in bed, alert. Reports that breathing is better. Vital Signs Period Temp Pulse Resp BP Sys/Cleaning Pulse Ox Last 24 Hr 97.6 F-98.2 F 62-79 20-22 114-142/57-74 97 CBC, BMP 06/15/19 08:10 06/15/19 08:10 HEENT- NL: Neck- Trachea Midline Lungs- CTAB Heart- S1/S2 Abd- soft, NT Ext- No LE edema Active Medications Albuterol Sulfate (Ventolin 0.083% Nebulizer Soln -) 1 amp NEB Q4H PRN PRN Reason: SHORT OF BREATH/WHEEZING Albuterol/Ipratropium (Duoneb -) 1 amp NEB RQID [facility] Last Admin: 06/17/19 07:25 Dose: 1 amp Alprazolam (Xanax) 1 mg PO Q6HPO [facility] Last Admin: 06/17/19 07:53 Dose: 1 mg Atenolol (Tenormin -) 25 mg PO DAILY [facility] Last Admin: 06/17/19 10:25 Dose: 25 mg Folic Acid (Folic Acid -) 1 mg PO DAILY [facility] Last Admin: 06/17/19 10:25 Dose: 1 mg Ceftriaxone Sodium 2 gm/ (Dextrose) 100 mls @ 200 mls/hr IVPB DAILY [facility]; Protocol Last Admin: 06/17/19 10:26 Dose: 200 mls/hr Insulin Aspart (Novolog Vial Sliding Scale -) 1 vial SQ ACHS [facility]; Protocol Last Admin: 06/17/19 06:33 Dose: Not Given Methylprednisolone Sodium Succinate (Solu-Medrol -) 40 mg IVPUSH BID [facility] Last Admin: 06/17/19 10:25 Dose: 40 mg Metoclopramide HCl (Reglan -) 10 mg PO TIDAC [facility] Last Admin: 06/17/19 10:25 Dose: 10 mg Pantoprazole Sodium (Protonix -) 40 mg PO DAILY [facility] Last Admin: 06/17/19 10:25 Dose: 40 mg Polyethylene Glycol (Miralax (For Daily Use) -) 17 gm PO DAILY [facility] Last Admin: 06/16/19 11:27 Dose: 17 gm Tamsulosin HCl (Flomax -) 0.8 mg PO DAILY@0830 [facility] Last Admin: 06/17/19 07:54 Dose: 0.8 mg Assmt / plan # COPD acute exacerbation Chronic hypoxic and Hypercapneic resp failure - acute decompensation IV steroids /inhalers/ O2 / Bipap pulmonary consult appreciated #elevated WBC ct Improved cont to trend Appreciate ID Antibiotics per ID Cultures pending # Atrial fib rate control -continue BB continue a/c # esophageal adenocarcinoma (stage 4 with mets to liver) on chemo last chemo 2 weeks ago # HTN continue medication monitor BP # anemia H/H has been stable # anxiety usp use of benzo will continue # cognitive decline behavior calm Problem List - Problems (1) Acute on chronic respiratory failure with hypoxia and hypercapnia Code(s): J96.21 - ACUTE AND CHRONIC RESPIRATORY FAILURE WITH HYPOXIA; J96.22 - ACUTE AND CHRONIC RESPIRATORY FAILURE WITH HYPERCAPNIA (2) Acute respiratory failure Code(s): J96.00 - ACUTE RESPIRATORY FAILURE, UNSP W HYPOXIA OR HYPERCAPNIA (3) Anemia Code(s): D64.9 - ANEMIA, UNSPECIFIED (4) Adenocarcinoma of esophagus, stage 4 Code(s): C15.9 - MALIGNANT NEOPLASM OF ESOPHAGUS, UNSPECIFIED (5) COPD exacerbation Code(s): J44.1 - CHRONIC OBSTRUCTIVE PULMONARY DISEASE W (ACUTE) EXACERBATION (6) Liver masses Code(s): R16.0 - HEPATOMEGALY, NOT ELSEWHERE CLASSIFIED (7) Metastatic cancer Code(s): C79.9 - SECONDARY MALIGNANT NEOPLASM OF UNSPECIFIED SITE (8) MRSA (methicillin resistant Staphylococcus aureus) carrier Code(s): Z22.322 - CARRIER OR SUSPECTED CARRIER OF METHICILLIN RESIS STAPH (9) Pneumonia Code(s): J18.9 - PNEUMONIA, UNSPECIFIED ORGANISM Qualifiers: (10) Respiratory failure with hypoxia and hypercapnia Code(s): J96.91 - RESPIRATORY FAILURE, UNSPECIFIED WITH HYPOXIA; J96.92 - RESPIRATORY FAILURE, UNSPECIFIED WITH HYPERCAPNIA (11) Severe protein-calorie malnutrition Code(s): E43 - UNSPECIFIED SEVERE PROTEIN-CALORIE MALNUTRITION (12) Symptomatic anemia Code(s): D64.9 - ANEMIA, UNSPECIFIED (13) Atrial fibrillation Code(s): I48.91 - UNSPECIFIED ATRIAL FIBRILLATION Qualifiers: (14) Coronary artery disease Code(s): I25.10 - ATHSCL HEART DISEASE OF [place] CORONARY ARTERY W/O ANG PCTRS Qualifiers: (15) Emphysema of lung Code(s): J43.9 - EMPHYSEMA, UNSPECIFIED (16) HTN (hypertension) Code(s): I10 - ESSENTIAL (PRIMARY) HYPERTENSION Qualifiers: (17) Malnutrition Code(s): E46 - UNSPECIFIED PROTEIN-CALORIE MALNUTRITION
--- NOTE | 2019-06-17 11:52 | PN ---
Progress Note (short form) - Note Progress Note: PULMONARY States breathing is better. Less cough. No fevers. Vital Signs Period Temp Pulse Resp BP Sys/Cleaning Pulse Ox Last 24 Hr 97.6 F-98.2 F 62-79 20-22 114-142/57-74 97 Gen: NAD at rest Heart: RRR Lung: decreased breath sounds at the bases Abd: soft, nontender Ext: no edema CBC, BMP 06/15/19 08:10 06/15/19 08:10 Active Medications Albuterol Sulfate (Ventolin 0.083% Nebulizer Soln -) 1 amp NEB Q4H PRN PRN Reason: SHORT OF BREATH/WHEEZING Albuterol/Ipratropium (Duoneb -) 1 amp NEB RQID [facility] Last Admin: 06/17/19 11:33 Dose: 1 amp Alprazolam (Xanax) 1 mg PO Q6HPO [facility] Last Admin: 06/17/19 07:53 Dose: 1 mg Atenolol (Tenormin -) 25 mg PO DAILY [facility] Last Admin: 06/17/19 10:25 Dose: 25 mg Folic Acid (Folic Acid -) 1 mg PO DAILY [facility] Last Admin: 06/17/19 10:25 Dose: 1 mg Ceftriaxone Sodium 2 gm/ (Dextrose) 100 mls @ 200 mls/hr IVPB DAILY [facility]; Protocol Last Admin: 06/17/19 10:26 Dose: 200 mls/hr Insulin Aspart (Novolog Vial Sliding Scale -) 1 vial SQ ACHS [facility]; Protocol Last Admin: 06/17/19 06:33 Dose: Not Given Methylprednisolone Sodium Succinate (Solu-Medrol -) 40 mg IVPUSH BID [facility] Last Admin: 06/17/19 10:25 Dose: 40 mg Metoclopramide HCl (Reglan -) 10 mg PO TIDAC [facility] Last Admin: 06/17/19 10:25 Dose: 10 mg Pantoprazole Sodium (Protonix -) 40 mg PO DAILY [facility] Last Admin: 06/17/19 10:25 Dose: 40 mg Polyethylene Glycol (Miralax (For Daily Use) -) 17 gm PO DAILY [facility] Last Admin: 06/16/19 11:27 Dose: 17 gm Tamsulosin HCl (Flomax -) 0.8 mg PO DAILY@0830 [facility] Last Admin: 06/17/19 07:54 Dose: 0.8 mg A/P Acute on Chronic Hypoxic and Hypercapneic Respiratory Failure improving Acute COPD Exacerbation Atrial Fibrillation Metastatic Esophageal Cancer on Chemo HTN Anemia - medrol taper, can likely change to PO prednisone 40mg daily in AM if continues to improve - inhaled bronchodilators - O2 to keep SpO2 >90% - rate control - continue anticoagulation - BiPAP as needed Problem List - Problems (1) COPD exacerbation Code(s): J44.1 - CHRONIC OBSTRUCTIVE PULMONARY DISEASE W (ACUTE) EXACERBATION
[2019-06-17] MEDS: POLYETHYLENE GLYCOL 3350 119 GM BTL PO SCH (13:41)
[2019-06-18] MEDS: METOCLOPRAMIDE HCL 10 MG TABLET (FP) PO SCH ×3 (06:41→17:54)
[2019-06-18] MEDS: ALPRAZolam 1 MG TABLET PO SCH ×2 (06:41→11:35)
[2019-06-18] MEDS: INSULIN SLIDING SCALE (NOVOLOG) 1 VIAL SQ SCH ×3 (06:41→17:54)
[2019-06-18] MEDS: ALBUTEROL SO4 2.5/IPRATROPIUM 0.5 INH SOL 3 ML VIAL.NEB. NEB SCH ×3 (07:45→15:48)
[2019-06-18 08:46] LABS: BASO % 0.1 % (0-2.0); HEMATOCRIT 32.1 % (35.4-49); HEMOGLOBIN 10.4 GM/dL (11.7-16.9); LYMPH % 3.6 % (8-40); MCH 25.3 pg (25.7-33.7); MCHC 32.2 g/dl (32.0-35.9); MEAN CELL VOLUME 78.6 fl (80-96); MEAN PLT VOLUME 8.2 fl (7.5-11.1); MONO % 6.8 % (3.8-10.2); NEUT % 89.5 % (42.8-82.8); PLATELET COUNT 182 K/MM3 (134-434); RBC 4.09 M/mm3 (4.00-5.60); RDW 17.2 % (11.9-15.9); WHITE BLOOD COUNT 8.8 K/mm3 (4.0-10.0)
[2019-06-18 08:59] LABS: CALCIUM 8.2 mg/dL (8.5-10.1); CREATININE 0.4 mg/dL (0.55-1.3); POTASSIUM 3.9 mmol/L (3.5-5.1)
[2019-06-18] MEDS ORDERED: DEXTROSE 5%-WATER 100 ML IVPB ONE (09:19)
--- NOTE | 2019-06-18 09:20 | DS ---
Physical Examination Vital Signs: Vital Signs Temperature 97.4 F L 06/18/19 06:00 Pulse Rate 48 L 06/18/19 06:00 Respiratory Rate 18 06/18/19 06:00 Blood Pressure 127/57 L 06/18/19 06:00 O2 Sat by Pulse Oximetry (%) 98 06/17/19 21:00 Constitutional: Yes: Well Nourished, Calm Eyes: Yes: Conjunctiva Clear HENT: Yes: Atraumatic, Normocephalic Neck: Yes: Supple, Trachea Midline Cardiovascular: Yes: Regular Rate and Rhythm Respiratory: Yes: Regular, CTA Bilaterally Gastrointestinal: Yes: Normal Bowel Sounds, Soft ...Rectal Exam: Yes: Deferred Renal/: Yes: WNL Breast(s): Yes: WNL Musculoskeletal: Yes: WNL Extremities: Yes: WNL Edema: No Peripheral Pulses WNL: Yes Integumentary: Yes: Erythema Neurological: Yes: Alert, Oriented ...Motor Strength: WNL Psychiatric: Yes: Alert Labs: CBC, BMP 06/18/19 07:32 06/18/19 07:32 Discharge Summary Problems reviewed: Yes Reason For Visit: ACUTE ON CHRONIC RESP FAILURE WITH HYPOXIA AND HYP Current Active Problems COPD exacerbation (Acute) Hospital Course: 73 y/o male admitted for several days of worsening SOB. PMHx includes COPD, HTN , Anemia, Afib, BPH, Esophageal Adenocarcinoma (stage 4 mets to liver) on chemo. Chest xray neg for PNA. Followed and cleared by Pulmonary. DC home once cleared by ID. Condition: Stable - Instructions Referrals: Piyush Cordoba [Primary Care Provider] - Disposition: HOME - Home Medications Comprehensive Discharge Medication List: Ambulatory Orders Alprazolam [Xanax] 1 mg PO QID 03/06/18 Folic Acid 1 mg PO DAILY 03/06/18 Diltiazem Cd [Cardizem Cd -] 120 mg PO DAILY #30 cap.cd.24h 03/19/18 Tamsulosin HCl [Flomax -] 0.8 mg PO DAILY@829 30 Days #60 cap.er.24h 04/23/18 Albuterol 0.083% Nebulizer Verna [Ventolin 0.083% Nebulizer Soln -] 1 amp NEB Q4H PRN amp 12/29/18 Atenolol [Tenormin -] 25 mg PO DAILY 30 Days #30 tablet 12/29/18 Metoclopramide HCl [Reglan -] 10 mg PO ASDIR tablet 04/29/19 Pantoprazole Sodium [Protonix -] 40 mg PO DAILY #30 tablet.ec 04/29/19 Prescription Drug Monitoring Program (I-STOP) results: I-STOP not reviewed
[2019-06-18] MEDS: TAMSULOSIN HCL 0.4 MG CAP PO SCH (09:36)
[2019-06-18] MEDS: methylPREDNISolone NA SUCC 40 MG/1 ML VIAL IVPUSH SCH (09:37)
[2019-06-18] MEDS: FOLIC ACID 1 MG TABLET (FP) PO SCH (09:37)
[2019-06-18] MEDS: PANTOPRAZOLE 40 MG TABLET (FP) PO SCH (09:37)
[2019-06-18] MEDS: ATENOLOL 25 MG TABLET (FP) PO SCH (09:37)
[2019-06-18] MEDS: CEFTRIAXONE 2 GM in DEXTROSE 5%-WATER 100 ML IVPB SCH (09:37)
[2019-06-18] MEDS: POLYETHYLENE GLYCOL 3350 119 GM BTL PO SCH (09:43)
[2019-06-18 15:15] VITALS: BP 136/59; PULSE 59; TEMP 98.5
--- NOTE | 2019-06-18 17:10 | PN ---
Progress Note, Physician History of Present Illness: SEATED IN BED NO COMPLAINTS OFFERRED BREATHING NON LABORED ON NASAL CANNULA O2 AFEBRILE SPUTUM C/S NORMAL YECENIA - Current Medication List Current Medications: Active Medications Albuterol Sulfate (Ventolin 0.083% Nebulizer Soln -) 1 amp NEB Q4H PRN PRN Reason: SHORT OF BREATH/WHEEZING Albuterol/Ipratropium (Duoneb -) 1 amp NEB RQID [facility] Last Admin: 06/18/19 15:48 Dose: 1 amp Alprazolam (Xanax) 1 mg PO Q6HPO [facility] Last Admin: 06/18/19 11:35 Dose: 1 mg Atenolol (Tenormin -) 25 mg PO DAILY [facility] Last Admin: 06/18/19 09:37 Dose: 25 mg Cefuroxime Axetil (Ceftin -) 500 mg PO BID [facility] Diltiazem HCl (Cardizem Cd -) 120 mg PO DAILY [facility] Last Admin: 06/18/19 09:37 Dose: 120 mg Folic Acid (Folic Acid -) 1 mg PO DAILY [facility] Last Admin: 06/18/19 09:37 Dose: 1 mg Insulin Aspart (Novolog Vial Sliding Scale -) 1 vial SQ ACHS [facility]; Protocol Last Admin: 06/18/19 11:43 Dose: Not Given Methylprednisolone Sodium Succinate (Solu-Medrol -) 40 mg IVPUSH BID [facility] Last Admin: 06/18/19 09:37 Dose: 40 mg Metoclopramide HCl (Reglan -) 10 mg PO TIDAC [facility] Last Admin: 06/18/19 11:35 Dose: 10 mg Pantoprazole Sodium (Protonix -) 40 mg PO DAILY [facility] Last Admin: 06/18/19 09:37 Dose: 40 mg Polyethylene Glycol (Miralax (For Daily Use) -) 17 gm PO DAILY [facility] Last Admin: 06/18/19 09:43 Dose: 17 gm Tamsulosin HCl (Flomax -) 0.8 mg PO DAILY@0830 [facility] Last Admin: 06/18/19 09:36 Dose: 0.8 mg - Objective Vital Signs: Vital Signs Temperature 98.5 F 06/18/19 14:00 Pulse Rate 59 L 06/18/19 14:00 Respiratory Rate 18 06/18/19 14:00 Blood Pressure 136/59 L 06/18/19 14:00 O2 Sat by Pulse Oximetry (%) 98 06/17/19 21:00 Constitutional: Yes: No Distress Eyes: Yes: Conjunctiva Clear Cardiovascular: Yes: Regular Rate and Rhythm, S1, S2 Respiratory: Yes: Diminished Gastrointestinal: Yes: Normal Bowel Sounds, Soft. No: Tenderness Edema: No Labs: CBC, BMP 06/18/19 07:32 06/18/19 07:32 INR, PTT INR 0.97 (0.83-1.09) 06/14/19 12:44 Assessment/Plan EXACERBATION COPD PNEUMONIA METASTATIC CA HX MRSA SUBSTITUTE PO CEFTIN 500MG BID X 7D
[2019-06-18] MEDS ORDERED: CEFUROXIME AXETIL 500 MG TABLET PO SCH (22:00)
== END 2019-06-18 17:49 | disposition home or self-care (01) | DRG 189 ==
LOC: JER 11:30 → JERBED 15:27 → J5S 23:28
PROVIDERS: ADMIT Family Medicine; ATTEND Family Medicine
DX: J96.21 Acute and chronic respiratory failure with hypoxia (principal); E43 Unspecified severe protein-calorie malnutrition; J44.1 Chronic obstructive pulmonary disease with (acute) exacerbation; C15.9 Malignant neoplasm of esophagus, unspecified; C78.7 Secondary malignant neoplasm of liver and intrahepatic bile duct; Z68.1 Body mass index [BMI] 19.9 or less, adult; J96.22 Acute and chronic respiratory failure with hypercapnia; J44.9 Chronic obstructive pulmonary disease, unspecified; N40.0 Benign prostatic hyperplasia without lower urinary tract symptoms; I10 Essential (primary) hypertension; I25.10 Atherosclerotic heart disease of native coronary artery without angina pectoris; D64.9 Anemia, unspecified; I48.91 Unspecified atrial fibrillation; F41.9 Anxiety disorder, unspecified
CPT/HCPCS: 36415; 71045-TC-FY; 80048; 80053; 81003; 82803; 82962; 83605; 83735; 83880; 84443; 84484; 85025; 85027; 85610; 85730; 87040; 87070; 87077; 87086; 87205; 87899; 93005; 93010; 94640; 97116-GP; 97162-GP; 99283-25

== ENCOUNTER 2019-07-20 09:49 | Inpatient (IN) | payer OTHER, MEDICARE ==
--- NOTE | 2019-07-20 10:04 | PDOC ---
History of Present Illness - General Stated Complaint: FALL Time Seen by Provider: 07/20/19 10:01 History Source: Patient, Spouse Exam Limitations: No Limitations - History of Present Illness Initial Comments: 07/20/19 10:04 73yM w PMHx COPD (baseline 3L), HTN, anemia, BPH, afib (eliquis), and esophageal adenocarcinoma presenting w witnessed fall, weakness and SOB. Pt is poor historian. Per , pt had progressively worsening generalized weakness and lethargy for past 4d, ongoing green productive cough for past month. 950a today pt slowly collapsed on ground walking from bedroom to living room, no LOC/ head trauma. Denies fever, headache, vision change, nausea/vomiting, cough, chest/AB pain, urinary/bowel mvmt changes. Normal EF 08/24/18. Past History - Past Medical History Allergies/Adverse Reactions: Allergies Allergy/AdvReac Type Severity Reaction Status Date / Time No Known Allergies Allergy Verified 04/25/19 10:06 Home Medications: Ambulatory Orders Alprazolam [Xanax] 1 mg PO QID 03/06/18 Albuterol 0.083% Nebulizer Verna [Ventolin 0.083% Nebulizer Soln -] 1 amp NEB Q4H PRN amp 12/29/18 Atenolol [Tenormin -] 25 mg PO DAILY 30 Days #30 tablet 12/29/18 Diltiazem Cd [Cardizem Cd -] 120 mg PO DAILY 30 Days #30 cap.cd.24h 06/18/19 Folic Acid - 1 mg PO DAILY 30 Days #30 tablet 06/18/19 Tamsulosin HCl [Flomax -] 0.8 mg PO DAILY@0830 30 Days #60 cap.er.24h 06/18/19 Albuterol 2.5/Ipratropium 0.5 [Duoneb -] 1 amp NEB QID 07/20/19 Anemia: No Asthma: No Cancer: Yes Cardiac Disorders: Yes (A-fib) CVA: No COPD: Yes CHF: Yes Dementia: No Diabetes: No GI Disorders: No Disorders: Yes (BPH) HTN: Yes Hypercholesterolemia: No Liver Disease: No Seizures: No Thyroid Disease: No - Surgical History Abdominal Surgery: Yes (hernia) Appendectomy: Yes Cardiac Surgery: No Cholecystectomy: No GI Surgery: No Lung Surgery: No Neurologic Surgery: No Orthopedic Surgery: Yes (rt hip replacement) - Immunization History Immunization Up to Date: No - Psycho Social/Smoking Cessation Hx Smoking History: Former smoker Have you smoked in the past 12 months: No If you are a former smoker, when did you quit?: 1979 Hx Alcohol Use: No Drug/Substance Use Hx: No Substance Use Type: None Hx Substance Use Treatment: No Review of Systems - Review of Systems Constitutional: No: Chills, Fever HEENTM: No: Eye Pain, Nose Pain, Throat Pain, Mouth Pain Respiratory: Yes: Cough, Shortness of Breath, Productive cough Cardiac (ROS): No: Chest Pain, Palpitations ABD/GI: No: Abdominal Distended, Constipated, Diarrhea, Nausea, Vomiting : No: Burning, Dysuria, Hematuria Musculoskeletal: No: Back Pain, Joint Pain Integumentary: No: Bruising, Flushing, Lesions Neurological: No: Headache, Numbness, Seizure, Tingling Psychiatric: No: Anxiety, Depression, Stressors Endocrine: No: Excessive Sweating, Flushing, Intolerance to Cold, Intolerance to Heat Hematologic/Lymphatic: No: Anemia, Blood Clots *Physical Exam - Physical Exam General Appearance: Yes: Nourished, Appropriately Dressed, Mild Distress HEENT: positive: EOMI, CONSTANZA, Normal Voice, Hearing Grossly Normal. negative: Scleral Icterus (R), Scleral Icterus (L), Nasal Congestion, Rhinorrhea Neck: positive: Supple, Other (R chest port). negative: Tender, Rigid, Decreased range of motion Respiratory/Chest: positive: Accessory Muscle Use, Decreased Breath Sounds, Crackles (ced bases). negative: Chest Tender, Rhonchi, Stridor Cardiovascular: positive: Regular Rhythm, Regular Rate, S1, S2. negative: Edema , Murmur Gastrointestinal/Abdominal: positive: Normal Bowel Sounds, Flat, Soft. negative : Tender, Organomegaly, Distended, Guarding, Rebound, Tenderness, Hernia, Mass Extremity: positive: Delayed Capillary Refill, Other (elevated skin R back, ) Integumentary: positive: Normal Color, Dry Neurologic: positive: education administrator II-XII NML intact, Fully Oriented, Alert, Normal Mood/ Affect, Normal Response, Motor Strength 5/5, Responsive. negative: Sensory Deficit, Confused, Disoriented ED Treatment Course - LABORATORY CBC & Chemistry Diagram: 07/20/19 11:00 12/24/19 11:00 Medical Decision Making - Medical Decision Making 07/20/19 10:26 Head, c-spine CT - diffuse white matter changes of uncertain origin, no acute bleed/infarct CBC CMP trop UA cx flu VBG coags EKG shows NSR HR 67, QTc 393, no ST changes, unchanged CXR shows no congestion/pulm infiltrates duonebx3, solumedrol, vanc, zosyn VBG (7.28, CO2 86, O2 <49) --- 73yM w PMHx COPD (baseline 3L), HTN, anemia, BPH, afib (eliquis), and esophageal adenocarcinoma (stage 4) presenting w witnessed fall, weakness and SOB d/t COPD exacerbation (decreased breath sounds). AOx3, neuro intact. Placed on BiPAP d/t respiratory acidosis on VBG (7.28, CO2 86, low O2), Given duonebx3 , solumedrol, vanc, zosyn UTI? Low concern for CVA (no neuro deficits) vs ACS (NSR EKG, neg trop) vs PNA ( no consolidation) no flu Admitted m/s Dr Michelle for acute respiratory failure w hypercapnia/hypoxia needing BiPAP 2/2 COPD exacerbation - pending UA Discharge - Discharge Information Problems reviewed: Yes Clinical Impression/Diagnosis: COPD exacerbation Respiratory failure with hypoxia and hypercapnia Qualifiers: Chronicity: acute on chronic Qualified Code(s): J96.21 - Acute and chronic respiratory failure with hypoxia Condition: Improved - Follow up/Referral Referrals: Piyush Cordoba [Primary Care Provider] - - Patient Discharge Instructions - Post Discharge Activity
[2019-07-20] MEDS ORDERED: ALBUTEROL SO4 2.5/IPRATROPIUM 0.5 INH SOL 3 ML VIAL.NEB. NEB ONE ×4 (10:19→11:49)
[2019-07-20] MEDS ORDERED: methylPREDNISolone NA SUCC 125 MG/2 ML VIAL IVPB ONE (10:19)
[2019-07-20] MEDS ORDERED: methylPREDNISolone NA SUCC 125 MG/2 ML VIAL ONE (10:23)
--- NOTE | 2019-07-20 11:04 | PDOC ---
Documentation entered by Fay Winter SCRIBE, acting as scribe for Liset Jaime DO. Liset Jaime, : This documentation has been prepared by the Moy deleon Brenda, SCRIBE, under my direction and personally reviewed by me in its entirety. I confirm that the documentation accurately reflects all work, treatment, procedures, and medical decision making performed by me. Attending Attestation - Resident Resident Name: MalikaWenceslao - ED Attending Attestation I have performed the following: I have examined & evaluated the patient, The case was reviewed & discussed with the resident, I agree w/resident's findings & plan, Exceptions are as noted - HPI HPI: 07/20/19 11:06 73yo male with hx of copd, afib on eliquis, metastatic esophageal ca, presents from home via ambulance for eval of sob and a fall. Per medics, pt fell with his walker. Pt currently denies fall or head injury. Only external sign of trauma is an abrasion to the R anterior knee. Pt denies hitting his head or loc. is on her way to the ER. Pt arrives c/o sob, cough- productive green sputum. Pt denies sore throat or fevers. Pt tachypnic upon arrival on home O2. - Physicial Exam PE: 07/20/19 11:07 Gen: aaox3, tachypnic heent: eomi, mmm neck: supple, no midline ttp, no stepoffs or deformities heart: +s1s2 reg lungs: diminished in upper lung vann, crackles and coarse bs b/l bases abd: soft, nt/nd +bs ext: no c/c/e, abrasion to R anterior knee without active bleeding or hematoma, FROM of UE and LE neuro: cn ii-xii grossly intact, muscle strength intact, sensation intact, no focal deficits - Medical Decision Making 07/20/19 11:03 a/p: 73yo male with hx of copd on home O2 with an alleged fall with his walker this AM. Pt only c/o sob -denies head injury or loc -pt arrives aaox3, but slow to respond -pt tachypnic and sob upon arrival -coarse bs b/l bases -concern for copd/pna -will send labs, ekg, cxr, head ct given fall on eliquis -will give nebs, steroids -will monitor and reassess 07/20/19 11:05 ekg unchanged from prior 07/20/19 11:49 pt with hypercapnic resp failure will need bipap 07/20/19 12:10 flu neg 07/20/19 12:44 no elevated wbc, but does have a shift 07/20/19 13:58 microblog sent to [facility] for admission 07/20/19 14:37 Dr. Kumar is oncologist at [facility] call placed to oncologist last chemo was a week ago friday has been weak since per the and has been slurring his speech x weeks pt lethargic since friday per the 07/20/19 14:[address] 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 michelle accepts pt to service, resident discussed the case Heart Score/ECG Review - ECG Intrepretation Comment:: 07/20/19 11:04 sinus at 67, nl axis, q waves anteriorly which are age indeterminate, no acute st/t wave findings
[2019-07-20 11:39] LABS: VENOUS PH 7.28 (7.31-7.41)
[2019-07-20 11:40] LABS: VENOUS PO2 < 49 mmHg (28-48)
[2019-07-20 11:43] LABS: BASO % 0.8 % (0-2.0); EOS % 2.8 % (0-4.5); HEMATOCRIT 40.5 % (35.4-49); HEMOGLOBIN 12.7 GM/dL (11.7-16.9); MCH 26.1 pg (25.7-33.7); MCHC 31.2 g/dl (32.0-35.9); MEAN CELL VOLUME 83.6 fl (80-96); MEAN PLT VOLUME 8.3 fl (7.5-11.1); MONO % 5.6 % (3.8-10.2); NEUT % 84.8 % (42.8-82.8); PLATELET COUNT 206 K/MM3 (134-434); RBC 4.85 M/mm3 (4.00-5.60); RDW 19.7 % (11.9-15.9); VENOUS PC02 86.7 mmHg (38-52); WHITE BLOOD COUNT 9.7 K/mm3 (4.0-10.0)
[2019-07-20] MEDS ORDERED: VANCOMYCIN 1 GM in D5W (PRE-DOCKED) 1,000 MG/250 ML IVPB ONE (11:45)
[2019-07-20] MEDS ORDERED: PIPERACILLIN/TAZOB 4.5 GM 4.5 GM in DEXTROSE 5%-WATER 100 ML IVPB ONE (11:48)
[2019-07-20] MEDS ORDERED: SODIUM CHLORIDE 0.9% 500 ML INFUS.BAG IV ONE (11:57)
[2019-07-20] MEDS ORDERED: VANCOMYCIN 1 GRAM (PRE-DOCKED) 1,000 MG/250 ML BAG IVPB ONE (12:11)
[2019-07-20] MEDS ORDERED: PIPERACILLIN/TAZOB 4.5 GM 4.5 GM/100 ML BAG IVPB ONE (12:11)
[2019-07-20 12:18] LABS: ALBUMIN 3.2 g/dl (3.4-5.0); BILIRUBIN,TOTAL 0.5 mg/dL (0.2-1); BLOOD UREA NITROGEN 4.6 mg/dL (7-18); CREATININE 0.5 mg/dL (0.55-1.3); POTASSIUM 4.5 mmol/L (3.5-5.1); TOT PROT 6.7 g/dl (6.4-8.2)
[2019-07-20 12:30] LABS: INR 0.98 (0.83-1.09); PROTHROMBIN TIME (PATIENT) 11.6 SEC (9.7-13.0)
[2019-07-20] MEDS ORDERED: ACETAMINOPHEN 325 MG TABLET (FP) PO PRN (15:43)
--- NOTE | 2019-07-20 15:46 | EKG ---
Test Reason : Blood Pressure : / mmHG Vent. Rate : 067 BPM Atrial Rate : 067 BPM P-R Int : 174 ms QRS Dur : 068 ms QT Int : 372 ms P-R-T Axes : 081 045 077 degrees QTc Int : 393 ms NORMAL SINUS RHYTHM RIGHT ATRIAL ENLARGEMENT ANTEROSEPTAL INFARCT (CITED ON OR BEFORE 15-APR-2018) ABNORMAL ECG WHEN COMPARED WITH ECG OF 14-JUN-2019 11:54, FUSION COMPLEXES ARE NO LONGER PRESENT PREMATURE VENTRICULAR COMPLEXES ARE NO LONGER PRESENT Confirmed by MD Serge, Esteban ([id number]) on 07/20/2019 3:46:02 PM Referred By: Confirmed By:Esteban Valentine MD
[2019-07-20 16:01] LABS: EPI CELLS 4.3 /HPF (0-5/HPF); HYALINE CASTS 12 /lpf (0-8); PH,URINE 8.5 (5.0-8.0); URINE APPEARANCE CLOUDY; URINE BACTERIA 3.4 /hpf (NEGATIVE); URINE BILIRUBIN NEGATIVE (NEGATIVE); URINE COLOR YELLOW; URINE GLUCOSE (UA) NEGATIVE (NEGATIVE); URINE KETONE NEGATIVE (NEGATIVE); URINE LEUK ESTERASE 2+ (NEGATIVE); URINE NITRITE NEGATIVE (NEGATIVE); URINE PROTEIN NEGATIVE (NEGATIVE); URINE RBC 3 /hpf (0-4); URINE UROBILINOGEN 0.2 mg/dL (0.2-1.0); URINE WBC 61 /hpf (0-5)
--- NOTE | 2019-07-20 16:14 | HP ---
Admitting History and Physical - Admission History of Present Illness: 73yM w PMHx COPD (baseline 3L), HTN, anemia, BPH, afib (eliquis), and esophageal adenocarcinoma presenting w witnessed fall, weakness and SOB. Pt is poor historian. Per , pt had progressively worsening generalized weakness and lethargy for past 4d, ongoing green productive cough for past month. 950a today pt slowly collapsed on ground walking from bedroom to living room, no LOC/ head trauma. Denies fever, headache, vision change, nausea/vomiting, cough, chest/AB pain, urinary/bowel mvmt changes. Normal EF 08/24/18. 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: Dementia (mild to moderate) Cardiovascular: Yes: AFIB, HTN Pulmonary: Yes: Bronchitis, COPD, O2 Dependent, Pneumonia Gastrointestinal: Yes: Cancer (distal esophageal mass - adenoca) Heme/Onc: Yes: Anemia, Other (esophageal Carcinoma with mets) Infectious Disease: Yes: MRSA (hx) Psych: Yes: Anxiety, Panic Musculoskeletal: Yes: Osteoarthritis Dermatology: Yes: Other (B/L feet scars/ scratches) - Past Surgical History Past Surgical History: Yes: Appendectomy, Hernia Repair, Permanent Pacemaker - Smoking History Smoking history: Former smoker Have you smoked in the past 12 months: No If you are a former smoker, when did you quit?: 1979 - Alcohol/Substance Use Hx Alcohol Use: No - Social History ADL: Support Services History of Recent Travel: No Home Medications - Allergies Allergies/Adverse Reactions: Allergies Allergy/AdvReac Type Severity Reaction Status Date / Time No Known Allergies Allergy Verified 04/25/19 10:06 - Home Medications Home Medications: Ambulatory Orders Alprazolam [Xanax] 1 mg PO QID 03/06/18 Albuterol 0.083% Nebulizer Verna [Ventolin 0.083% Nebulizer Soln -] 1 amp NEB Q4H PRN amp 12/29/18 Atenolol [Tenormin -] 25 mg PO DAILY 30 Days #30 tablet 12/29/18 Diltiazem Cd [Cardizem Cd -] 120 mg PO DAILY 30 Days #30 cap.cd.24h 06/18/19 Folic Acid - 1 mg PO DAILY 30 Days #30 tablet 06/18/19 Tamsulosin HCl [Flomax -] 0.8 mg PO DAILY@0830 30 Days #60 cap.er.24h 06/18/19 Albuterol 2.5/Ipratropium 0.5 [Duoneb -] 1 amp NEB QID 07/20/19 Family Medical History Family History: Unable to Obtain Review of Systems Unable to obtain ROS, reason: dementia - Review of Systems Constitutional: reports: Loss of Appetite, Malaise, Unintentional Wgt. Loss, Weakness Neck: reports: No Symptoms Cardiovascular: reports: No Symptoms, Edema, Shortness of Breath. denies: Chest Pain Respiratory: reports: Cough, Exercise Intolerance, Orthopnea, SOB, SOB on Exertion, Wheezing Gastrointestinal: reports: Abdominal Pain Genitourinary: reports: No Symptoms Breasts: reports: No Symptoms Reported Musculoskeletal: reports: No Symptoms, Muscle Weakness Integumentary: reports: No Symptoms Neurological: reports: Incoordination, Pre-Existing Deficit, Unsteady Gait, Weakness Hematology/Lymphatic: reports: No Symptoms Psychiatric: reports: No Symptoms Physical Examination Vital Signs: Vital Signs Temperature 97.7 F 07/20/19 14:05 Pulse Rate 64 07/20/19 14:15 Respiratory Rate 16 07/20/19 14:15 Blood Pressure 151/63 07/20/19 14:15 O2 Sat by Pulse Oximetry (%) 96 07/20/19 14:15 Constitutional: Yes: Cachectic, Moderate Distress, Pallor, Thin Eyes: Yes: Conjunctiva Clear, EOM Intact HENT: Yes: Atraumatic, Normocephalic Neck: Yes: Supple, Trachea Midline Cardiovascular: Yes: Regular Rate and Rhythm Respiratory: Yes: Regular, CTA Bilaterally Gastrointestinal: Yes: Normal Bowel Sounds, Soft ...Rectal Exam: Yes: Erythema Renal/: Yes: WNL Breast(s): Yes: WNL Musculoskeletal: Yes: WNL, Muscle Pain, Muscle Weakness Extremities: Yes: WNL. No: Calf Tenderness, Deformity Edema: Yes Peripheral Pulses WNL: No Integumentary: Yes: WNL Psychiatric: Yes: Alert, Oriented Labs: CBC, BMP 07/20/19 11:00 07/20/19 11:00 Problem List - Problems (1) COPD exacerbation Code(s): J44.1 - CHRONIC OBSTRUCTIVE PULMONARY DISEASE W (ACUTE) EXACERBATION (2) Respiratory failure with hypoxia and hypercapnia Code(s): J96.91 - RESPIRATORY FAILURE, UNSPECIFIED WITH HYPOXIA; J96.92 - RESPIRATORY FAILURE, UNSPECIFIED WITH HYPERCAPNIA Qualifiers: Chronicity: acute on chronic Qualified Code(s): J96.21 - Acute and chronic respiratory failure with hypoxia; J96.22 - Acute and chronic respiratory failure with hypercapnia (3) Acute on chronic respiratory failure with hypoxia and hypercapnia Code(s): J96.21 - ACUTE AND CHRONIC RESPIRATORY FAILURE WITH HYPOXIA; J96.22 - ACUTE AND CHRONIC RESPIRATORY FAILURE WITH HYPERCAPNIA (4) Acute respiratory failure Code(s): J96.00 - ACUTE RESPIRATORY FAILURE, UNSP W HYPOXIA OR HYPERCAPNIA (5) Adenocarcinoma of esophagus, stage 4 Code(s): C15.9 - MALIGNANT NEOPLASM OF ESOPHAGUS, UNSPECIFIED (6) Dysphagia Code(s): R13.10 - DYSPHAGIA, UNSPECIFIED (7) Liver masses Code(s): R16.0 - HEPATOMEGALY, NOT ELSEWHERE CLASSIFIED (8) MRSA (methicillin resistant Staphylococcus aureus) carrier Code(s): Z22.322 - CARRIER OR SUSPECTED CARRIER OF METHICILLIN RESIS STAPH (9) Metastatic cancer Code(s): C79.9 - SECONDARY MALIGNANT NEOPLASM OF UNSPECIFIED SITE (10) Prophylactic measure Code(s): Z29.9 - ENCOUNTER FOR PROPHYLACTIC MEASURES, UNSPECIFIED (11) Rapid atrial fibrillation Code(s): I48.91 - UNSPECIFIED ATRIAL FIBRILLATION (12) Severe protein-calorie malnutrition Code(s): E43 - UNSPECIFIED SEVERE PROTEIN-CALORIE MALNUTRITION (13) Symptomatic anemia Code(s): D64.9 - ANEMIA, UNSPECIFIED (14) Weight loss Code(s): R63.4 - ABNORMAL WEIGHT LOSS (15) Atrial fibrillation Code(s): I48.91 - UNSPECIFIED ATRIAL FIBRILLATION Qualifiers: (16) Emphysema of lung Code(s): J43.9 - EMPHYSEMA, UNSPECIFIED (17) HTN (hypertension) Code(s): I10 - ESSENTIAL (PRIMARY) HYPERTENSION Qualifiers: (18) Malnutrition Code(s): E46 - UNSPECIFIED PROTEIN-CALORIE MALNUTRITION
[2019-07-20] MEDS: methylPREDNISolone NA SUCC 40 MG/1 ML VIAL IVPUSH SCH ×2 (17:00→23:04)
[2019-07-20] MEDS ORDERED: methylPREDNISolone NA SUCC 40 MG/1 ML VIAL ONE (17:04)
--- NOTE | 2019-07-20 18:04 | PN ---
Progress Note (short form) - Note Progress Note: ID CONSULT DICTATED ACUTE EXACERBATION COPD ?PNEUMONIA ESOPHAGEAL ADENOCARCINOMA AWAIT C/S EMPIRIC CEFTRIAXONE
[2019-07-20] MEDS ORDERED: DEXTROSE 5%-WATER - 50 ML IVPB ONE (18:37)
[2019-07-20] MEDS ORDERED: cefTRIAXone SODIUM 1 GM VIAL ONE (18:37)
[2019-07-20] MEDS: ALPRAZolam 1 MG TABLET PO SCH ×2 (18:43→23:04)
[2019-07-20] MEDS: CEFTRIAXONE 1 GM in DEXTROSE 5%-WATER - 50 ML IVPB SCH (18:43)
[2019-07-20] MEDS: ALBUTEROL SO4 2.5/IPRATROPIUM 0.5 INH SOL 3 ML VIAL.NEB. NEB SCH ×2 (19:32→23:30)
[2019-07-21] MEDS: methylPREDNISolone NA SUCC 40 MG/1 ML VIAL IVPUSH SCH ×4 (03:43→21:41)
[2019-07-21 08:07] LABS: HEMATOCRIT 36.4 % (35.4-49); HEMOGLOBIN 11.6 GM/dL (11.7-16.9); MCH 26.3 pg (25.7-33.7); MCHC 31.8 g/dl (32.0-35.9); MEAN CELL VOLUME 82.6 fl (80-96); MEAN PLT VOLUME 8.7 fl (7.5-11.1); PLATELET COUNT 191 K/MM3 (134-434); RDW 19.3 % (11.9-15.9); WHITE BLOOD COUNT 7.8 K/mm3 (4.0-10.0)
[2019-07-21 08:22] LABS: ALBUMIN 2.8 g/dl (3.4-5.0); BILIRUBIN,TOTAL 0.6 mg/dL (0.2-1); CALCIUM 8.8 mg/dL (8.5-10.1); CREATININE 0.4 mg/dL (0.55-1.3); MAGNESIUM 2.1 mg/dL (1.8-2.4); POTASSIUM 3.9 mmol/L (3.5-5.1); TOT PROT 5.8 g/dl (6.4-8.2)
[2019-07-21] MEDS: ALBUTEROL SO4 2.5/IPRATROPIUM 0.5 INH SOL 3 ML VIAL.NEB. NEB SCH ×4 (09:05→20:04)
[2019-07-21] MEDS ORDERED: cefTRIAXone SODIUM 1 GM VIAL ONE (09:46)
[2019-07-21] MEDS ORDERED: DEXTROSE 5%-WATER - 50 ML IVPB ONE (09:46)
[2019-07-21] MEDS: TAMSULOSIN HCL 0.4 MG CAP PO SCH (09:56)
[2019-07-21] MEDS: ATENOLOL 25 MG TABLET (FP) PO SCH (09:56)
[2019-07-21] MEDS: ALPRAZolam 1 MG TABLET PO SCH ×4 (09:56→23:01)
[2019-07-21] MEDS: FOLIC ACID 1 MG TABLET (FP) PO SCH (09:57)
[2019-07-21] MEDS: POLYETHYLENE GLYCOL 3350 119 GM BTL PO SCH (09:57)
[2019-07-21] MEDS: CEFTRIAXONE 1 GM in DEXTROSE 5%-WATER - 50 ML IVPB SCH (09:57)
--- NOTE | 2019-07-21 10:38 | CON.PULM ---
Consult Consult Specialty:: PULM/CCM Referred by:: MARA Reason for Consultation:: SOB - History of Present Illness Chief Complaint: SOB History of Present Illness: 73 M, O2 dependent COPD (3L NC) due to previous smoking, HTN, anemia, BPH, AFib on Eliquis, and esophageal adenocarcinoma. Admitted via the ER due to a witnessed fall, generalized weakness, and SOB. Patient is poor historian. Apparently has been having progressive symptoms for the past several days. No recent travel history or sick contacts. NO hemoptysis or night sweats. 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: Dementia (mild to moderate) Cardio/Vascular: Yes: AFIB, HTN Pulmonary: Yes: Bronchitis, COPD, O2 Dependent, Pneumonia Gastrointestinal: Yes: Cancer (distal esophageal mass - adenoca) Infectious Disease: Yes: MRSA (hx) Psych: Yes: Anxiety, Panic Musculoskeletal: Yes: Osteoarthritis Dermatology: Yes: Other (B/L feet scars/ scratches) - Past Surgical History Past Surgical History: Yes: Appendectomy, Hernia Repair, Permanent Pacemaker - Alcohol/Substance Use Hx Alcohol Use: No - Smoking History Smoking history: Former smoker Have you smoked in the past 12 months: No If you are a former smoker, when did you quit?: 1979 - Social History ADL: Support Services History of Recent Travel: No Home Medications - Allergies Allergies/Adverse Reactions: Allergies Allergy/AdvReac Type Severity Reaction Status Date / Time No Known Allergies Allergy Verified 04/25/19 10:06 - Home Medications Home Medications: Ambulatory Orders Alprazolam [Xanax] 1 mg PO QID 03/06/18 Albuterol 0.083% Nebulizer Verna [Ventolin 0.083% Nebulizer Soln -] 1 amp NEB Q4H PRN amp 12/29/18 Atenolol [Tenormin -] 25 mg PO DAILY 30 Days #30 tablet 12/29/18 Diltiazem Cd [Cardizem Cd -] 120 mg PO DAILY 30 Days #30 cap.cd.24h 06/18/19 Folic Acid - 1 mg PO DAILY 30 Days #30 tablet 06/18/19 Tamsulosin HCl [Flomax -] 0.8 mg PO DAILY@0830 30 Days #60 cap.er.24h 06/18/19 Albuterol 2.5/Ipratropium 0.5 [Duoneb -] 1 amp NEB QID 07/20/19 Review of Systems - Review of Systems Constitutional: reports: Lethargy, Malaise, Weakness. denies: Chills, Fever, Night Sweats, Unintentional Wgt. Loss Eyes: reports: No Symptoms HENT: reports: No Symptoms, Mouth Swelling Cardiovascular: reports: Shortness of Breath. denies: Chest Pain, Edema, Palpitations Respiratory: reports: Cough, SOB, SOB on Exertion, Wheezing. denies: Hemoptysis , Orthopnea, PND, Snoring Gastrointestinal: reports: No Symptoms Genitourinary: reports: No Symptoms Breasts: reports: No Symptoms Reported Musculoskeletal: reports: No Symptoms Integumentary: reports: No Symptoms Neurological: reports: No Symptoms Endocrine: reports: No Symptoms Hematology/Lymphatic: reports: No Symptoms Psychiatric: reports: No Symptoms Physical Exam Vital Sings: Vital Signs Temperature 98.0 F 07/21/19 08:50 Pulse Rate 63 07/21/19 08:50 Respiratory Rate 19 07/21/19 08:50 Blood Pressure 148/64 07/21/19 08:50 O2 Sat by Pulse Oximetry (%) 100 07/20/19 20:00 Constitutional: Yes: No Distress, Poor Hygeine, Thin Eyes: Yes: Conjunctiva Clear, EOM Intact HENT: Yes: Atraumatic, Normocephalic Neck: Yes: Supple, Trachea Midline Cardiovascular: Yes: Pulse Irregular Respiratory: Yes: Cough, Diminished, On Nasal O2, Rhonchi, SOB, SOB on Exertion , Tachypnea, Wheezes. No: Accessory Muscle Use, Rales, Stridor ...Inspection: Yes: Other (Right ACW port ) ...Clubbing: No Gastrointestinal: Yes: Normal Bowel Sounds, Soft Renal/: Yes: WNL Musculoskeletal: Yes: WNL Extremities: Yes: WNL Edema: No Peripheral Pulses WNL: Yes Integumentary: Yes: WNL Neurological: Yes: WNL, Alert, Oriented ...Motor Strength: WNL Psychiatric: Yes: WNL, Alert, Oriented Labs: CBC, BMP 07/21/19 06:40 07/21/19 06:40 Imaging - Results Chest X-ray: Report Reviewed, Image Reviewed Cat Scan: Report Reviewed, Image Reviewed Problem List - Problems (1) Atelectasis of both lungs Code(s): J98.11 - ATELECTASIS (2) COPD exacerbation Code(s): J44.1 - CHRONIC OBSTRUCTIVE PULMONARY DISEASE W (ACUTE) EXACERBATION (3) Adenocarcinoma of esophagus, stage 4 Code(s): C15.9 - MALIGNANT NEOPLASM OF ESOPHAGUS, UNSPECIFIED (4) Anemia Code(s): D64.9 - ANEMIA, UNSPECIFIED (5) Pneumonia Code(s): J18.9 - PNEUMONIA, UNSPECIFIED ORGANISM Qualifiers: (6) Severe protein-calorie malnutrition Code(s): E43 - UNSPECIFIED SEVERE PROTEIN-CALORIE MALNUTRITION (7) Atrial fibrillation Code(s): I48.91 - UNSPECIFIED ATRIAL FIBRILLATION Qualifiers: (8) Coronary artery disease Code(s): I25.10 - ATHSCL HEART DISEASE OF [place] CORONARY ARTERY W/O ANG PCTRS Qualifiers: (9) Emphysema of lung Code(s): J43.9 - EMPHYSEMA, UNSPECIFIED (10) HTN (hypertension) Code(s): I10 - ESSENTIAL (PRIMARY) HYPERTENSION Qualifiers: (11) Malnutrition Code(s): E46 - UNSPECIFIED PROTEIN-CALORIE MALNUTRITION Assessment/Plan ABX per ID Medrol BD TX standing and PRN Supplemental O2 as needed to maintain saturation No smoking PFTs once stable as an outpatient Will follow Thank you. Dr Turner
--- NOTE | 2019-07-21 11:35 | CON.CARD ---
Cardiology Consult (text) - Consultation Consultation Note: - Consultation Consultation Note: cc: sob hpi: 73 m hx copd, afib, htn, esophageal adenocarcinoma, cad here with sob. Has been feeling weak, tired and short of breath with cough. Recent fall as well, denies dizziness or loc. pt poor historian, further history from chart, had worsening weakness, lethargy for a few days with cough productive of green sputum for one month. No cp palps pnd orthopnea le edema. pmh: per hpi psh: hip surgery social: ex tob fam: nc ros: no nvd, vision changes, bacon, muscel pain, dysuria, gib, hematuria; all others nl meds: Home Medications Medication Instructions Recorded Alprazolam [Xanax] 1 mg PO QID 03/06/18 Albuterol 0.083% Nebulizer Verna 1 amp NEB Q4H PRN amp 12/29/18 [Ventolin 0.083% Nebulizer Soln -] Atenolol [Tenormin -] 25 mg PO DAILY 30 Days #30 tablet 12/29/18 Diltiazem Cd [Cardizem Cd -] 120 mg PO DAILY 30 Days #30 06/18/19 cap.cd.24h Folic Acid - 1 mg PO DAILY 30 Days #30 tablet 06/18/19 Tamsulosin HCl [Flomax -] 0.8 mg PO DAILY@0830 30 Days #60 06/18/19 cap.er.24h Albuterol 2.5/Ipratropium 0.5 1 amp NEB QID 07/20/19 [Duoneb -] Vital Signs Period Temp Pulse Resp BP Sys/Cleaning Pulse Ox Last 24 Hr 97.0 F-98.0 F 51-69 16-20 127-151/57-74 94-100 nad, no jvd rrr s1s2 no mrg cta bl nl eff aao3 no le e/c/c abd nt nd pos bs no jaundice diaphoresis pos dp pt Laboratory Last Values WBC 7.8 K/mm3 (4.0-10.0) 07/21/19 06:40 RBC 4.40 M/mm3 (4.00-5.60) 07/21/19 06:40 Hgb 11.6 GM/dL (11.7-16.9) L 07/21/19 06:40 Hct 36.4 % (35.4-49) 07/21/19 06:40 MCV 82.6 fl (80-96) 07/21/19 06:40 MCH 26.3 pg (25.7-33.7) 07/21/19 06:40 MCHC 31.8 g/dl (32.0-35.9) L 07/21/19 06:40 RDW 19.3 % (11.9-15.9) H 07/21/19 06:40 Plt Count 191 K/MM3 (134-434) 07/21/19 06:40 MPV 8.7 fl (7.5-11.1) 07/21/19 06:40 Absolute Neuts (auto) 8.3 K/mm3 (1.5-8.0) H 07/20/19 11:00 Neutrophils % 84.8 % (42.8-82.8) H 07/20/19 11:00 Lymphocytes % 6.0 % (8-40) L D 07/20/19 11:00 Monocytes % 5.6 % (3.8-10.2) 07/20/19 11:00 Eosinophils % 2.8 % (0-4.5) D 07/20/19 11:00 Basophils % 0.8 % (0-2.0) D 07/20/19 11:00 Nucleated RBC % 0 % (0-0) 07/20/19 11:00 PT with INR 11.60 SEC (9.7-13.0) 07/20/19 11:00 INR 0.98 (0.83-1.09) 07/20/19 11:00 VBG pH 7.28 (7.31-7.41) L 07/20/19 11:00 POC VBG pCO2 86.7 mmHg (38-52) H* 07/20/19 11:00 POC VBG pO2 < 49 mmHg (28-48) H 07/20/19 11:00 VBG HCO3 39.3 mmol/L (23-29) H 07/20/19 11:00 VBG O2 Sat ([place]) 21.6 % (70-80) L 07/20/19 11:00 VBG Base Excess 9.6 meq/l (-2-2) H 07/20/19 11:00 Sodium 135 mmol/L (136-145) L 07/21/19 06:40 Potassium 3.9 mmol/L (3.5-5.1) 07/21/19 06:40 Chloride 95 mmol/L (98-107) L 07/21/19 06:40 Carbon Dioxide 35 mmol/L (21-32) H 07/21/19 06:40 Anion Gap 5 MMOL/L (8-16) L 07/21/19 06:40 BUN 9.0 mg/dL (7-18) 07/21/19 06:40 Creatinine 0.4 mg/dL (0.55-1.3) L 07/21/19 06:40 Est GFR (CKD-EPI)AfAm 134.66 07/21/19 06:40 Est GFR (CKD-EPI)NonAf 116.19 07/21/19 06:40 Random Glucose 135 mg/dL (74-106) H 07/21/19 06:40 Calcium 8.8 mg/dL (8.5-10.1) 07/21/19 06:40 Magnesium 2.1 mg/dL (1.8-2.4) 07/21/19 06:40 Total Bilirubin 0.6 mg/dL (0.2-1) 07/21/19 06:40 AST 20 U/L (15-37) 07/21/19 06:40 ALT 13 U/L (13-61) 07/21/19 06:40 Alkaline Phosphatase 75 U/L (45-117) 07/21/19 06:40 Creatine Kinase 96 U/L (26-308) 07/20/19 11:00 Troponin I < 0.02 ng/ml (0.00-0.05) 07/20/19 11:00 Total Protein 5.8 g/dl (6.4-8.2) L 07/21/19 06:40 Albumin 2.8 g/dl (3.4-5.0) L 07/21/19 06:40 Urine Color Yellow 07/20/19 15:30 Urine Appearance Cloudy 07/20/19 15:30 Urine pH 8.5 (5.0-8.0) H D 07/20/19 15:30 Ur Specific [place] 1.011 (1.010-1.035) 07/20/19 15:30 Urine Protein Negative (NEGATIVE) 07/20/19 15:30 Urine Glucose (UA) Negative (NEGATIVE) 07/20/19 15:30 Urine Ketones Negative (NEGATIVE) 07/20/19 15:30 Urine Blood Negative (NEGATIVE) 07/20/19 15:30 Urine Nitrite Negative (NEGATIVE) 07/20/19 15:30 Urine Bilirubin Negative (NEGATIVE) 07/20/19 15:30 Urine Urobilinogen 0.2 mg/dL (0.2-1.0) 07/20/19 15:30 Ur Leukocyte Esterase 2+ (NEGATIVE) H 07/20/19 15:30 Urine WBC (Auto) 61 /hpf (0-5) 07/20/19 15:30 Urine RBC (Auto) 3 /hpf (0-4) 07/20/19 15:30 Urine Casts (Auto) 12 /lpf (0-8) 07/20/19 15:30 U Epithel Cells (Auto) 4.3 /HPF (0-5/HPF) 07/20/19 15:30 U Sm Round Cell (Auto) None 07/20/19 15:30 Urine Crystals (Auto) None /hpf 07/20/19 15:30 Urine Bacteria (Auto) 3.4 /hpf (NEGATIVE) 07/20/19 15:30 Influenza A (Rapid) Negative (Negative) 07/20/19 11:00 Influenza B (Rapid) Negative (Negative) 07/20/19 11:00 ecg: sr,nl intervals, no ischemic changes cxr: no acute process echo 02/2018: nl lv/rv, mild tr, mod phtn echo 07/2018 nl LV/RV fn, mild MR, mod TR, PASP at least 41 mmHg a/p: 73 m hx copd, afib, htn, cad here with sob. sob, copd exac -no signs chf or ACS - manage per primary, pulm - on abx, steroids afib: -cont dilt, atenolol for rate control -has been off eliquis since prior admission 02/2019 for anemia htn: -stable, cont home meds cad: -unclear details, pt said he had cath at [facility] about 10 yrs ago and was told he had narrowing in artery but that due to its location it could not be fixed. - plavix and eliquis were dc'ed 02/2019 for anemia, diagnosed with esophageal adenocarcinoma
--- NOTE | 2019-07-21 15:34 | PN ---
Progress Note (short form) - Note Progress Note: poor historian appears comfortable O2 in place Vital Signs Period Temp Pulse Resp BP Sys/Cleaning Pulse Ox Last 24 Hr 97.0 F-98.0 F 51-69 18-20 127-148/57-80 98-100 sitting in chair neck - vd heart S1/S2 lungs decreased bs abd soft CBC, BMP 07/21/19 06:40 07/21/19 06:40 Microbiology 07/20/19 13:00 Blood - Petey Cath Blood Culture - Preliminary NO GROWTH OBTAINED AFTER 24 HOURS, INCUBATION TO CONTINUE FOR 4 DAYS. 07/20/19 12:00 Blood - Peripheral Venous Blood Culture - Preliminary NO GROWTH OBTAINED AFTER 24 HOURS, INCUBATION TO CONTINUE FOR 4 DAYS. 07/20/19 12:00 Blood - Peripheral Venous Blood Culture - Preliminary NO GROWTH OBTAINED AFTER 24 HOURS, INCUBATION TO CONTINUE FOR 4 DAYS. 07/20/19 15:30 Urine - Urine Clean Catch Urine Culture - Final NO GROWTH OBTAINED Active Medications Acetaminophen (Tylenol -) 650 mg PO Q4H PRN PRN Reason: PAIN LEVEL 1-5 Albuterol Sulfate (Ventolin 0.083% Nebulizer Soln -) 1 amp NEB Q4H PRN PRN Reason: SHORT OF BREATH/WHEEZING Albuterol/Ipratropium (Duoneb -) 1 amp NEB RQID COUNT INCLUDES THE [facility] Last Admin: 07/21/19 12:13 Dose: 1 amp Alprazolam (Xanax) 1 mg PO QID GE Last Admin: 07/21/19 14:02 Dose: 1 mg Atenolol (Tenormin -) 25 mg PO DAILY COUNT INCLUDES THE [facility] Last Admin: 07/21/19 09:56 Dose: 25 mg Diltiazem HCl (Cardizem Cd -) 120 mg PO DAILY COUNT INCLUDES THE [facility] Last Admin: 07/21/19 09:56 Dose: 120 mg Folic Acid (Folic Acid -) 1 mg PO DAILY COUNT INCLUDES THE [facility] Last Admin: 07/21/19 09:57 Dose: 1 mg Ceftriaxone Sodium 1 gm/ (Dextrose) 50 mls @ 200 mls/hr IVPB DAILY GE; Protocol Last Admin: 07/21/19 09:57 Dose: 200 mls/hr Methylprednisolone Sodium Succinate (Solu-Medrol -) 80 mg IVPUSH Q6H-IV GE Last Admin: 07/21/19 14:02 Dose: 80 mg Polyethylene Glycol (Miralax (For Daily Use) -) 17 gm PO DAILY COUNT INCLUDES THE [facility] Last Admin: 07/21/19 09:57 Dose: Not Given Tamsulosin HCl (Flomax -) 0.8 mg PO DAILY@0830 COUNT INCLUDES [facility] Last Admin: 07/21/19 09:56 Dose: 0.8 mg Problem List - Problems (1) COPD exacerbation Code(s): J44.1 - CHRONIC OBSTRUCTIVE PULMONARY DISEASE W (ACUTE) EXACERBATION (2) Respiratory failure with hypoxia and hypercapnia Code(s): J96.91 - RESPIRATORY FAILURE, UNSPECIFIED WITH HYPOXIA; J96.92 - RESPIRATORY FAILURE, UNSPECIFIED WITH HYPERCAPNIA Qualifiers: Chronicity: acute on chronic Qualified Code(s): J96.21 - Acute and chronic respiratory failure with hypoxia; J96.22 - Acute and chronic respiratory failure with hypercapnia (3) Acute on chronic respiratory failure with hypoxia and hypercapnia Code(s): J96.21 - ACUTE AND CHRONIC RESPIRATORY FAILURE WITH HYPOXIA; J96.22 - ACUTE AND CHRONIC RESPIRATORY FAILURE WITH HYPERCAPNIA (4) Acute respiratory failure Code(s): J96.00 - ACUTE RESPIRATORY FAILURE, UNSP W HYPOXIA OR HYPERCAPNIA (5) Adenocarcinoma of esophagus, stage 4 Code(s): C15.9 - MALIGNANT NEOPLASM OF ESOPHAGUS, UNSPECIFIED (6) Dysphagia Code(s): R13.10 - DYSPHAGIA, UNSPECIFIED (7) Liver masses Code(s): R16.0 - HEPATOMEGALY, NOT ELSEWHERE CLASSIFIED (8) MRSA (methicillin resistant Staphylococcus aureus) carrier Code(s): Z22.322 - CARRIER OR SUSPECTED CARRIER OF METHICILLIN RESIS STAPH (9) Metastatic cancer Code(s): C79.9 - SECONDARY MALIGNANT NEOPLASM OF UNSPECIFIED SITE (10) Prophylactic measure Code(s): Z29.9 - ENCOUNTER FOR PROPHYLACTIC MEASURES, UNSPECIFIED (11) Rapid atrial fibrillation Code(s): I48.91 - UNSPECIFIED ATRIAL FIBRILLATION (12) Severe protein-calorie malnutrition Code(s): E43 - UNSPECIFIED SEVERE PROTEIN-CALORIE MALNUTRITION (13) Symptomatic anemia Code(s): D64.9 - ANEMIA, UNSPECIFIED (14) Weight loss Code(s): R63.4 - ABNORMAL WEIGHT LOSS (15) Atrial fibrillation Code(s): I48.91 - UNSPECIFIED ATRIAL FIBRILLATION Qualifiers: (16) Emphysema of lung Code(s): J43.9 - EMPHYSEMA, UNSPECIFIED (17) HTN (hypertension) Code(s): I10 - ESSENTIAL (PRIMARY) HYPERTENSION Qualifiers: (18) Malnutrition Code(s): E46 - UNSPECIFIED PROTEIN-CALORIE MALNUTRITION
[2019-07-21] MEDS: ALBUTEROL SO4 0.083% IH SOL 2.5 MG/3 ML VIAL.NEB. NEB PRN (23:24)
[2019-07-22] MEDS: methylPREDNISolone NA SUCC 40 MG/1 ML VIAL IVPUSH SCH ×4 (03:59→21:23)
[2019-07-22] MEDS: ALBUTEROL SO4 2.5/IPRATROPIUM 0.5 INH SOL 3 ML VIAL.NEB. NEB SCH ×4 (07:30→20:15)
[2019-07-22 08:36] LABS: HEMATOCRIT 33.8 % (35.4-49); HEMOGLOBIN 10.8 GM/dL (11.7-16.9); MCH 26.3 pg (25.7-33.7); MEAN CELL VOLUME 82.1 fl (80-96); MEAN PLT VOLUME 8.9 fl (7.5-11.1); MONO % 3.2 % (3.8-10.2); NEUT % 94.8 % (42.8-82.8); PLATELET COUNT 188 K/MM3 (134-434); RBC 4.11 M/mm3 (4.00-5.60); RDW 19.6 % (11.9-15.9); WHITE BLOOD COUNT 13.4 K/mm3 (4.0-10.0)
[2019-07-22 09:01] LABS: BLOOD UREA NITROGEN 11.2 mg/dL (7-18); CALCIUM 8.2 mg/dL (8.5-10.1); CREATININE 0.4 mg/dL (0.55-1.3)
[2019-07-22] MEDS ORDERED: cefTRIAXone SODIUM 1 GM VIAL ONE (09:21)
[2019-07-22] MEDS ORDERED: DEXTROSE 5%-WATER - 50 ML IVPB ONE (09:22)
[2019-07-22] MEDS: TAMSULOSIN HCL 0.4 MG CAP PO SCH (09:33)
[2019-07-22] MEDS: FOLIC ACID 1 MG TABLET (FP) PO SCH (09:33)
[2019-07-22] MEDS: ALPRAZolam 1 MG TABLET PO SCH ×4 (09:34→21:23)
[2019-07-22] MEDS: ATENOLOL 25 MG TABLET (FP) PO SCH (09:34)
[2019-07-22] MEDS: CEFTRIAXONE 1 GM in DEXTROSE 5%-WATER - 50 ML IVPB SCH (09:35)
[2019-07-22] MEDS: POLYETHYLENE GLYCOL 3350 119 GM BTL PO SCH (09:43)
[2019-07-22 09:51] LABS: ANISOCYTOSIS 1+; MACROCYTOSIS 0; PLATELET ESTIMATE NORMAL; ROULEAU 1+
[2019-07-22] MEDS: ALBUTEROL SO4 0.083% IH SOL 2.5 MG/3 ML VIAL.NEB. NEB PRN (10:00)
--- NOTE | 2019-07-22 10:21 | PN ---
Progress Note (short form) - Note Progress Note: s: no cp palps dizzy; sob improving Current Medications Generic Name Dose Route Start Last Admin Trade Name Freq PRN Reason Stop Dose Admin Acetaminophen 650 mg 07/20/19 15:43 Tylenol - PO Q4H PRN PAIN LEVEL 1-5 Albuterol Sulfate 1 amp 07/20/19 15:42 07/21/19 23:24 Ventolin 0.083% Nebulizer Soln - NEB 1 amp Q4H PRN Administration SHORT OF BREATH/WHEEZING Albuterol/Ipratropium 1 amp 07/21/19 08:00 07/21/19 20:04 Duoneb - NEB 1 amp RQID GE Administration Alprazolam 1 mg 07/20/19 18:00 07/22/19 09:34 Xanax PO 1 mg QID GE Administration Atenolol 25 mg 07/21/19 10:00 07/22/19 09:34 Tenormin - PO 25 mg DAILY GE Administration Diltiazem HCl 120 mg 07/21/19 10:00 07/22/19 09:33 Cardizem Cd - PO 120 mg DAILY GE Administration Folic Acid 1 mg 07/21/19 10:00 07/22/19 09:33 Folic Acid - PO 1 mg DAILY GE Administration Ceftriaxone Sodium 1 gm/ 50 mls @ 200 mls/hr 07/20/19 18:15 07/22/19 09:35 Dextrose IVPB 200 mls/hr DAILY GE Administration Protocol Methylprednisolone Sodium Succinate 80 mg 07/20/19 16:00 07/22/19 09:34 Solu-Medrol - IVPUSH 80 mg Q6H-IV GE Administration Polyethylene Glycol 17 gm 07/21/19 10:00 07/22/19 09:43 Miralax (For Daily Use) - PO 17 grams DAILY GE Administration Tamsulosin HCl 0.8 mg 07/21/19 08:30 07/22/19 09:33 Flomax - PO 0.8 mg DAILY@0830 GE Administration Vital Signs Period Temp Pulse Resp BP Sys/Cleaning Pulse Ox Last 24 Hr 97.4 F-98.0 F 55-69 18-20 133-151/53-80 99 nad, no jvd rrr s1s2 no mrg cta bl nl eff aao3 no le e/c/c abd nt nd pos bs no jaundice diaphoresis CBC, BMP 07/22/19 06:40 07/22/19 06:40 ecg: sr,nl intervals, no ischemic changes cxr: no acute process echo 02/2018: nl lv/rv, mild tr, mod phtn echo 07/2018 nl LV/RV fn, mild MR, mod TR, PASP at least 41 mmHg a/p: 73 m hx copd, afib, htn, cad here with sob. sob, copd exac -no signs chf or ACS - manage per primary, pulm - on abx, steroids afib: -cont dilt, atenolol for rate control -has been off eliquis since prior admission 02/2019 for anemia htn: -stable, cont home meds cad: -unclear details, pt said he had cath at [facility] about 10 yrs ago and was told he had narrowing in artery but that due to its location it could not be fixed. - plavix and eliquis were dc'ed 02/2019 for anemia, diagnosed with esophageal adenocarcinoma
--- NOTE | 2019-07-22 13:03 | PN ---
Progress Note (short form) - Note Progress Note: PULMONARY AT BEDSIDE SUBJECTIVE IMPROVEMENT NOT USING NIPPV VSS/AFEBRILE Constitutional: Yes: No Distress, Poor Hygeine, Thin Eyes: Yes: Conjunctiva Clear, EOM Intact HENT: Yes: Atraumatic, Normocephalic Neck: Yes: Supple, Trachea Midline Cardiovascular: Yes: Pulse Irregular Respiratory: Yes: Cough, Diminished, On Nasal O2, Rhonchi, SOB, SOB on Exertion , Tachypnea, Wheezes. No: Accessory Muscle Use, Rales, Stridor ...Inspection: Yes: Other (Right ACW port ) ...Clubbing: No Gastrointestinal: Yes: Normal Bowel Sounds, Soft Renal/: Yes: WNL Musculoskeletal: Yes: WNL Extremities: Yes: WNL Edema: No Peripheral Pulses WNL: Yes Integumentary: Yes: WNL Neurological: Yes: WNL, Alert, Oriented ...Motor Strength: WNL Psychiatric: Yes: WNL, Alert, Oriented Labs: REVIEWED Chest X-ray: Report Reviewed, Image Reviewed Cat Scan: Report Reviewed, Image Reviewed - Problems (1) Atelectasis of both lungs Code(s): J98.11 - ATELECTASIS (2) COPD exacerbation Code(s): J44.1 - CHRONIC OBSTRUCTIVE PULMONARY DISEASE W (ACUTE) EXACERBATION (3) Adenocarcinoma of esophagus, stage 4 Code(s): C15.9 - MALIGNANT NEOPLASM OF ESOPHAGUS, UNSPECIFIED (4) Anemia Code(s): D64.9 - ANEMIA, UNSPECIFIED (5) Pneumonia Code(s): J18.9 - PNEUMONIA, UNSPECIFIED ORGANISM Qualifiers: (6) Severe protein-calorie malnutrition Code(s): E43 - UNSPECIFIED SEVERE PROTEIN-CALORIE MALNUTRITION (7) Atrial fibrillation Code(s): I48.91 - UNSPECIFIED ATRIAL FIBRILLATION Qualifiers: (8) Coronary artery disease Code(s): I25.10 - ATHSCL HEART DISEASE OF [place] CORONARY ARTERY W/O ANG PCTRS Qualifiers: (9) Emphysema of lung Code(s): J43.9 - EMPHYSEMA, UNSPECIFIED (10) HTN (hypertension) Code(s): I10 - ESSENTIAL (PRIMARY) HYPERTENSION Qualifiers: (11) Malnutrition Code(s): E46 - UNSPECIFIED PROTEIN-CALORIE MALNUTRITION Assessment/Plan ABX per ID Medrol BD TX standing and PRN Supplemental O2 as needed to maintain saturation No smoking PFTs once stable as an outpatient Will follow Nasir SHETTY MD
--- NOTE | 2019-07-22 15:20 | PN ---
Progress Note (short form) - Note Progress Note: 73 y/o male found sitting in bed with O@ in place. Reports that breathing has improved. Vital Signs Period Temp Pulse Resp BP Sys/Cleaning Pulse Ox Last 24 Hr 97.4 F-98.0 F 55-69 18-20 133-151/53-77 98-100 CBC, BMP 07/22/19 06:40 07/22/19 06:40 HEENT- NL Neck- Trachea Midline Lungs- CTAB Heart- S1/S2 Abd- soft, NT Ext- No LE edema Active Medications Acetaminophen (Tylenol -) 650 mg PO Q4H PRN PRN Reason: PAIN LEVEL 1-5 Albuterol Sulfate (Ventolin 0.083% Nebulizer Soln -) 1 amp NEB Q4H PRN PRN Reason: SHORT OF BREATH/WHEEZING Last Admin: 07/22/19 10:00 Dose: 1 amp Albuterol/Ipratropium (Duoneb -) 1 amp NEB RQID [facility] Last Admin: 07/22/19 11:49 Dose: Not Given Alprazolam (Xanax) 1 mg PO QID [facility] Last Admin: 07/22/19 14:15 Dose: 1 mg Atenolol (Tenormin -) 25 mg PO DAILY [facility] Last Admin: 07/22/19 09:34 Dose: 25 mg Diltiazem HCl (Cardizem Cd -) 120 mg PO DAILY [facility] Last Admin: 07/22/19 09:33 Dose: 120 mg Folic Acid (Folic Acid -) 1 mg PO DAILY [facility] Last Admin: 07/22/19 09:33 Dose: 1 mg Ceftriaxone Sodium 1 gm/ (Dextrose) 50 mls @ 200 mls/hr IVPB DAILY [facility]; Protocol Last Admin: 07/22/19 09:35 Dose: 200 mls/hr Methylprednisolone Sodium Succinate (Solu-Medrol -) 40 mg IVPUSH Q6H-IV GE Last Admin: 07/22/19 14:16 Dose: 40 mg Polyethylene Glycol (Miralax (For Daily Use) -) 17 gm PO DAILY [facility] Last Admin: 07/22/19 09:43 Dose: 17 grams Tamsulosin HCl (Flomax -) 0.8 mg PO DAILY@0830 [facility] Last Admin: 07/22/19 09:33 Dose: 0.8 mg #COPD/ resp failure Appreciate pulm/ ID IV steroids/Duoneb/ Ceftriaxone #Afib Appreciate Cardio Atenolol for rate control No AC due to Anemia- dc'd in 02/2019 #Esophageal Carcinoma Followed by Oncologist Problem List - Problems (1) COPD exacerbation Code(s): J44.1 - CHRONIC OBSTRUCTIVE PULMONARY DISEASE W (ACUTE) EXACERBATION (2) Respiratory failure with hypoxia and hypercapnia Code(s): J96.91 - RESPIRATORY FAILURE, UNSPECIFIED WITH HYPOXIA; J96.92 - RESPIRATORY FAILURE, UNSPECIFIED WITH HYPERCAPNIA Qualifiers: Chronicity: acute on chronic Qualified Code(s): J96.21 - Acute and chronic respiratory failure with hypoxia; J96.22 - Acute and chronic respiratory failure with hypercapnia (3) Acute on chronic respiratory failure with hypoxia and hypercapnia Code(s): J96.21 - ACUTE AND CHRONIC RESPIRATORY FAILURE WITH HYPOXIA; J96.22 - ACUTE AND CHRONIC RESPIRATORY FAILURE WITH HYPERCAPNIA (4) Acute respiratory failure Code(s): J96.00 - ACUTE RESPIRATORY FAILURE, UNSP W HYPOXIA OR HYPERCAPNIA (5) Adenocarcinoma of esophagus, stage 4 Code(s): C15.9 - MALIGNANT NEOPLASM OF ESOPHAGUS, UNSPECIFIED (6) Dysphagia Code(s): R13.10 - DYSPHAGIA, UNSPECIFIED (7) Liver masses Code(s): R16.0 - HEPATOMEGALY, NOT ELSEWHERE CLASSIFIED (8) MRSA (methicillin resistant Staphylococcus aureus) carrier Code(s): Z22.322 - CARRIER OR SUSPECTED CARRIER OF METHICILLIN RESIS STAPH (9) Metastatic cancer Code(s): C79.9 - SECONDARY MALIGNANT NEOPLASM OF UNSPECIFIED SITE (10) Prophylactic measure Code(s): Z29.9 - ENCOUNTER FOR PROPHYLACTIC MEASURES, UNSPECIFIED (11) Rapid atrial fibrillation Code(s): I48.91 - UNSPECIFIED ATRIAL FIBRILLATION (12) Severe protein-calorie malnutrition Code(s): E43 - UNSPECIFIED SEVERE PROTEIN-CALORIE MALNUTRITION (13) Symptomatic anemia Code(s): D64.9 - ANEMIA, UNSPECIFIED (14) Weight loss Code(s): R63.4 - ABNORMAL WEIGHT LOSS (15) Atrial fibrillation Code(s): I48.91 - UNSPECIFIED ATRIAL FIBRILLATION Qualifiers: (16) Emphysema of lung Code(s): J43.9 - EMPHYSEMA, UNSPECIFIED (17) HTN (hypertension) Code(s): I10 - ESSENTIAL (PRIMARY) HYPERTENSION Qualifiers: (18) Malnutrition Code(s): E46 - UNSPECIFIED PROTEIN-CALORIE MALNUTRITION
--- NOTE | 2019-07-22 15:42 | PN ---
Progress Note, Physician History of Present Illness: AWAKE, ALERT SEATED IN BED APPEARS MUCH MORE COMFORTABLE BREATHING NON LABORED ON NASAL CANNULA AFEBRILE WBC SL ELEVATED ON STEROIDS - Current Medication List Current Medications: Active Medications Acetaminophen (Tylenol -) 650 mg PO Q4H PRN PRN Reason: PAIN LEVEL 1-5 Albuterol Sulfate (Ventolin 0.083% Nebulizer Soln -) 1 amp NEB Q4H PRN PRN Reason: SHORT OF BREATH/WHEEZING Last Admin: 07/22/19 10:00 Dose: 1 amp Albuterol/Ipratropium (Duoneb -) 1 amp NEB RQID [facility] Last Admin: 07/22/19 15:21 Dose: 1 amp Alprazolam (Xanax) 1 mg PO QID [facility] Last Admin: 07/22/19 14:15 Dose: 1 mg Atenolol (Tenormin -) 25 mg PO DAILY [facility] Last Admin: 07/22/19 09:34 Dose: 25 mg Diltiazem HCl (Cardizem Cd -) 120 mg PO DAILY [facility] Last Admin: 07/22/19 09:33 Dose: 120 mg Folic Acid (Folic Acid -) 1 mg PO DAILY [facility] Last Admin: 07/22/19 09:33 Dose: 1 mg Ceftriaxone Sodium 1 gm/ (Dextrose) 50 mls @ 200 mls/hr IVPB DAILY [facility]; Protocol Last Admin: 07/22/19 09:35 Dose: 200 mls/hr Methylprednisolone Sodium Succinate (Solu-Medrol -) 40 mg IVPUSH Q6H-IV [facility] Last Admin: 07/22/19 14:16 Dose: 40 mg Polyethylene Glycol (Miralax (For Daily Use) -) 17 gm PO DAILY [facility] Last Admin: 07/22/19 09:43 Dose: 17 grams Tamsulosin HCl (Flomax -) 0.8 mg PO DAILY@0830 [facility] Last Admin: 07/22/19 09:33 Dose: 0.8 mg - Objective Vital Signs: Vital Signs Temperature 97.4 F L 07/22/19 14:03 Pulse Rate 59 L 07/22/19 14:03 Respiratory Rate 20 07/22/19 14:03 Blood Pressure 141/57 L 07/22/19 14:03 O2 Sat by Pulse Oximetry (%) 97 07/22/19 15:21 Constitutional: Yes: No Distress Cardiovascular: Yes: Regular Rate and Rhythm, S1, S2 Respiratory: Yes: Diminished Gastrointestinal: Yes: Normal Bowel Sounds, Soft. No: Tenderness Edema: No Integumentary: Yes: Other (NO ERYTHEMA AT PORT SITE) Labs: CBC, BMP 07/22/19 06:40 07/22/19 06:40 INR, PTT INR 0.98 (0.83-1.09) 07/20/19 11:00 Assessment/Plan ACUTE EXACERBATION COPD ? PNEUMONIA ADENOCARCINOMA OF ESOPHAGUS CONTINUE EMPIRIC CEFTRIAXONE BRONCHODILATORS/ STEROIDS
[2019-07-23] MEDS: methylPREDNISolone NA SUCC 40 MG/1 ML VIAL IVPUSH SCH ×4 (03:47→21:39)
[2019-07-23] MEDS: ALBUTEROL SO4 2.5/IPRATROPIUM 0.5 INH SOL 3 ML VIAL.NEB. NEB SCH ×4 (07:35→20:05)
[2019-07-23] MEDS: TAMSULOSIN HCL 0.4 MG CAP PO SCH (09:09)
[2019-07-23 09:17] LABS: BASO % 0.1 % (0-2.0); HEMATOCRIT 37.5 % (35.4-49); HEMOGLOBIN 11.9 GM/dL (11.7-16.9); LYMPH % 1.4 % (8-40); MCH 26.2 pg (25.7-33.7); MCHC 31.6 g/dl (32.0-35.9); MEAN CELL VOLUME 82.7 fl (80-96); MEAN PLT VOLUME 8.6 fl (7.5-11.1); MONO % 4.2 % (3.8-10.2); NEUT % 94.3 % (42.8-82.8); PLATELET COUNT 222 K/MM3 (134-434); RBC 4.53 M/mm3 (4.00-5.60); RDW 19.6 % (11.9-15.9); WHITE BLOOD COUNT 16.8 K/mm3 (4.0-10.0)
[2019-07-23 09:49] LABS: BLOOD UREA NITROGEN 11.3 mg/dL (7-18); CALCIUM 8.2 mg/dL (8.5-10.1); CREATININE 0.3 mg/dL (0.55-1.3); POTASSIUM 4.1 mmol/L (3.5-5.1)
[2019-07-23] MEDS ORDERED: DEXTROSE 5%-WATER - 50 ML IVPB ONE (10:08)
[2019-07-23] MEDS ORDERED: cefTRIAXone SODIUM 1 GM VIAL ONE (10:08)
[2019-07-23] MEDS: ATENOLOL 25 MG TABLET (FP) PO SCH (10:13)
[2019-07-23] MEDS: CEFTRIAXONE 1 GM in DEXTROSE 5%-WATER - 50 ML IVPB SCH (10:13)
[2019-07-23] MEDS: FOLIC ACID 1 MG TABLET (FP) PO SCH (10:13)
[2019-07-23] MEDS: ALPRAZolam 1 MG TABLET PO SCH ×4 (10:13→21:39)
[2019-07-23] MEDS: POLYETHYLENE GLYCOL 3350 119 GM BTL PO SCH (10:15)
[2019-07-23 10:53] LABS: ANISOCYTOSIS 1+; MACROCYTOSIS 0; PLATELET ESTIMATE NORMAL
--- NOTE | 2019-07-23 12:21 | PN ---
Progress Note (short form) - Note Progress Note: 73 y/o male found sitting in bed. O2 in place via nasal cannula. Breathing improved. Vital Signs Period Temp Pulse Resp BP Sys/Cleaning Pulse Ox Last 24 Hr 97.4 F-97.6 F 59-74 20-20 134-148/55-58 96-97 CBC, BMP 07/23/19 07:20 07/23/19 07:20 HEENT- NL Neck- Trachea Midline Lungs- CTAB Heart-S1/S2 Abd- soft, NT Ext- No LE edema Active Medications Acetaminophen (Tylenol -) 650 mg PO Q4H PRN PRN Reason: PAIN LEVEL 1-5 Albuterol Sulfate (Ventolin 0.083% Nebulizer Soln -) 1 amp NEB Q4H PRN PRN Reason: SHORT OF BREATH/WHEEZING Last Admin: 07/22/19 10:00 Dose: 1 amp Albuterol/Ipratropium (Duoneb -) 1 amp NEB RQID [facility] Last Admin: 07/23/19 12:11 Dose: 1 amp Alprazolam (Xanax) 1 mg PO QID [facility] Last Admin: 07/23/19 10:13 Dose: 1 mg Atenolol (Tenormin -) 25 mg PO DAILY [facility] Last Admin: 07/23/19 10:13 Dose: 25 mg Diltiazem HCl (Cardizem Cd -) 120 mg PO DAILY [facility] Last Admin: 07/23/19 10:13 Dose: 120 mg Folic Acid (Folic Acid -) 1 mg PO DAILY [facility] Last Admin: 07/23/19 10:13 Dose: 1 mg Ceftriaxone Sodium 1 gm/ (Dextrose) 50 mls @ 200 mls/hr IVPB DAILY [facility]; Protocol Last Admin: 07/23/19 10:13 Dose: 200 mls/hr Methylprednisolone Sodium Succinate (Solu-Medrol -) 40 mg IVPUSH Q6H-IV [facility] Last Admin: 07/23/19 09:09 Dose: 40 mg Polyethylene Glycol (Miralax (For Daily Use) -) 17 gm PO DAILY [facility] Last Admin: 07/23/19 10:15 Dose: 17 grams Tamsulosin HCl (Flomax -) 0.8 mg PO DAILY@0830 [facility] Last Admin: 07/23/19 09:09 Dose: 0.8 mg #COPD/ resp failure Appreciate pulm/ ID IV steroids/Duoneb/ Ceftriaxone per ID Chest Xray neg for PNA- Atelectasis noted #Afib Appreciate Cardio Atenolol for rate control No AC due to Anemia- dc'd in 02/2019 #Esophageal Carcinoma Followed by Oncologist Problem List - Problems (1) COPD exacerbation Code(s): J44.1 - CHRONIC OBSTRUCTIVE PULMONARY DISEASE W (ACUTE) EXACERBATION (2) Respiratory failure with hypoxia and hypercapnia Code(s): J96.91 - RESPIRATORY FAILURE, UNSPECIFIED WITH HYPOXIA; J96.92 - RESPIRATORY FAILURE, UNSPECIFIED WITH HYPERCAPNIA Qualifiers: Chronicity: acute on chronic Qualified Code(s): J96.21 - Acute and chronic respiratory failure with hypoxia; J96.22 - Acute and chronic respiratory failure with hypercapnia (3) Acute on chronic respiratory failure with hypoxia and hypercapnia Code(s): J96.21 - ACUTE AND CHRONIC RESPIRATORY FAILURE WITH HYPOXIA; J96.22 - ACUTE AND CHRONIC RESPIRATORY FAILURE WITH HYPERCAPNIA (4) Acute respiratory failure Code(s): J96.00 - ACUTE RESPIRATORY FAILURE, UNSP W HYPOXIA OR HYPERCAPNIA (5) Adenocarcinoma of esophagus, stage 4 Code(s): C15.9 - MALIGNANT NEOPLASM OF ESOPHAGUS, UNSPECIFIED (6) Dysphagia Code(s): R13.10 - DYSPHAGIA, UNSPECIFIED (7) Liver masses Code(s): R16.0 - HEPATOMEGALY, NOT ELSEWHERE CLASSIFIED (8) MRSA (methicillin resistant Staphylococcus aureus) carrier Code(s): Z22.322 - CARRIER OR SUSPECTED CARRIER OF METHICILLIN RESIS STAPH (9) Metastatic cancer Code(s): C79.9 - SECONDARY MALIGNANT NEOPLASM OF UNSPECIFIED SITE (10) Prophylactic measure Code(s): Z29.9 - ENCOUNTER FOR PROPHYLACTIC MEASURES, UNSPECIFIED (11) Rapid atrial fibrillation Code(s): I48.91 - UNSPECIFIED ATRIAL FIBRILLATION (12) Severe protein-calorie malnutrition Code(s): E43 - UNSPECIFIED SEVERE PROTEIN-CALORIE MALNUTRITION (13) Symptomatic anemia Code(s): D64.9 - ANEMIA, UNSPECIFIED (14) Weight loss Code(s): R63.4 - ABNORMAL WEIGHT LOSS (15) Atrial fibrillation Code(s): I48.91 - UNSPECIFIED ATRIAL FIBRILLATION Qualifiers: (16) Emphysema of lung Code(s): J43.9 - EMPHYSEMA, UNSPECIFIED (17) HTN (hypertension) Code(s): I10 - ESSENTIAL (PRIMARY) HYPERTENSION Qualifiers: (18) Malnutrition Code(s): E46 - UNSPECIFIED PROTEIN-CALORIE MALNUTRITION
--- NOTE | 2019-07-23 13:48 | PN ---
Progress Note (short form) - Note Progress Note: Breathing feels better. Less SOB. No acute events overnight. Intake & Output 07/20/19 07/21/19 07/22/19 07/23/19 23:59 23:59 23:59 23:59 Intake Total 50 1274 857 618 Balance 50 1274 857 618 Weight 141 lb 3.2 oz 140 lb 141 lb 142 lb Last Vital Signs Temp Pulse Resp BP Pulse Ox 97.5 F L 73 20 148/55 L 96 07/23/19 09:00 07/23/19 09:00 07/23/19 09:00 07/23/19 09:00 07/23/19 12:10 Active Medications Acetaminophen (Tylenol -) 650 mg PO Q4H PRN PRN Reason: PAIN LEVEL 1-5 Albuterol Sulfate (Ventolin 0.083% Nebulizer Soln -) 1 amp NEB Q4H PRN PRN Reason: SHORT OF BREATH/WHEEZING Last Admin: 07/22/19 10:00 Dose: 1 amp Albuterol/Ipratropium (Duoneb -) 1 amp NEB RQID [facility] Last Admin: 07/23/19 12:11 Dose: 1 amp Alprazolam (Xanax) 1 mg PO QID [facility] Last Admin: 07/23/19 10:13 Dose: 1 mg Atenolol (Tenormin -) 25 mg PO DAILY [facility] Last Admin: 07/23/19 10:13 Dose: 25 mg Diltiazem HCl (Cardizem Cd -) 120 mg PO DAILY [facility] Last Admin: 07/23/19 10:13 Dose: 120 mg Folic Acid (Folic Acid -) 1 mg PO DAILY [facility] Last Admin: 07/23/19 10:13 Dose: 1 mg Ceftriaxone Sodium 1 gm/ (Dextrose) 50 mls @ 200 mls/hr IVPB DAILY [facility]; Protocol Last Admin: 07/23/19 10:13 Dose: 200 mls/hr Methylprednisolone Sodium Succinate (Solu-Medrol -) 40 mg IVPUSH Q6H-IV [facility] Last Admin: 07/23/19 09:09 Dose: 40 mg Polyethylene Glycol (Miralax (For Daily Use) -) 17 gm PO DAILY [facility] Last Admin: 07/23/19 10:15 Dose: 17 grams Tamsulosin HCl (Flomax -) 0.8 mg PO DAILY@0830 [facility] Last Admin: 07/23/19 09:09 Dose: 0.8 mg Constitutional: Yes: No Distress, Poor Hygeine, Thin Eyes: Yes: Conjunctiva Clear, EOM Intact HENT: Yes: Atraumatic, Normocephalic Neck: Yes: Supple, Trachea Midline Cardiovascular: Yes: Pulse Irregular Respiratory: Yes: Cough, Diminished, On Nasal O2, Rhonchi, SOB, Wheezes. No: Accessory Muscle Use, Rales, Stridor ...Inspection: Yes: Other (Right ACW port ) ...Clubbing: No Gastrointestinal: Yes: Normal Bowel Sounds, Soft Renal/: Yes: WNL Musculoskeletal: Yes: WNL Extremities: Yes: WNL Edema: No Peripheral Pulses WNL: Yes Integumentary: Yes: WNL Neurological: Yes: WNL, Alert, Oriented ...Motor Strength: WNL Psychiatric: Yes: WNL, Alert, Oriented Laboratory Results - last 24 hr 07/23/19 07/23/19 07:20 07:20 WBC 16.8 H RBC 4.53 Hgb 11.9 Hct 37.5 MCV 82.7 MCH 26.2 MCHC 31.6 L RDW 19.6 H Plt Count 222 MPV 8.6 Absolute Neuts (auto) 15.8 H Neutrophils % 94.3 H Neutrophils % (Manual) 90.0 H Band Neutrophils % 1.0 Lymphocytes % 1.4 L D Lymphocytes % (Manual) 2.0 L D Monocytes % 4.2 Monocytes % (Manual) 6 D Eosinophils % 0.0 Eosinophils % (Manual) 0.0 Basophils % 0.1 D Basophils % (Manual) 0.0 Myelocytes % (Man) 0 Promyelocytes % (Man) 0 Blast Cells % (Manual) 0 Nucleated RBC % 0 Metamyelocytes 0 Hypochromia 1+ Platelet Estimate Normal Polychromasia 0 Poikilocytosis 0 Anisocytosis 1+ Microcytosis 1+ Macrocytosis 0 Sodium 138 Potassium 4.1 Chloride 97 L Carbon Dioxide 38 H Anion Gap 3 L BUN 11.3 Creatinine 0.3 L Est GFR (CKD-EPI)AfAm 151.56 Est GFR (CKD-EPI)NonAf 130.77 Random Glucose 105 Calcium 8.2 L - Problems (1) Atelectasis of both lungs Code(s): J98.11 - ATELECTASIS (2) COPD exacerbation Code(s): J44.1 - CHRONIC OBSTRUCTIVE PULMONARY DISEASE W (ACUTE) EXACERBATION (3) Adenocarcinoma of esophagus, stage 4 Code(s): C15.9 - MALIGNANT NEOPLASM OF ESOPHAGUS, UNSPECIFIED (4) Anemia Code(s): D64.9 - ANEMIA, UNSPECIFIED (5) Pneumonia Code(s): J18.9 - PNEUMONIA, UNSPECIFIED ORGANISM Qualifiers: (6) Severe protein-calorie malnutrition Code(s): E43 - UNSPECIFIED SEVERE PROTEIN-CALORIE MALNUTRITION (7) Atrial fibrillation Code(s): I48.91 - UNSPECIFIED ATRIAL FIBRILLATION Qualifiers: (8) Coronary artery disease Code(s): I25.10 - ATHSCL HEART DISEASE OF [place] CORONARY ARTERY W/O ANG PCTRS Qualifiers: (9) Emphysema of lung Code(s): J43.9 - EMPHYSEMA, UNSPECIFIED (10) HTN (hypertension) Code(s): I10 - ESSENTIAL (PRIMARY) HYPERTENSION Qualifiers: (11) Malnutrition Code(s): E46 - UNSPECIFIED PROTEIN-CALORIE MALNUTRITION Assessment/Plan ABX per ID Medrol BD TX standing and PRN Supplemental O2 as needed to maintain saturation No smoking PFTs once stable as an outpatient Dr Turner Problem List - Problems (1) Atelectasis of both lungs Code(s): J98.11 - ATELECTASIS (2) COPD exacerbation Code(s): J44.1 - CHRONIC OBSTRUCTIVE PULMONARY DISEASE W (ACUTE) EXACERBATION (3) Adenocarcinoma of esophagus, stage 4 Code(s): C15.9 - MALIGNANT NEOPLASM OF ESOPHAGUS, UNSPECIFIED (4) Anemia Code(s): D64.9 - ANEMIA, UNSPECIFIED (5) Pneumonia Code(s): J18.9 - PNEUMONIA, UNSPECIFIED ORGANISM Qualifiers: (6) Severe protein-calorie malnutrition Code(s): E43 - UNSPECIFIED SEVERE PROTEIN-CALORIE MALNUTRITION (7) Atrial fibrillation Code(s): I48.91 - UNSPECIFIED ATRIAL FIBRILLATION Qualifiers: (8) Coronary artery disease Code(s): I25.10 - ATHSCL HEART DISEASE OF [place] CORONARY ARTERY W/O ANG PCTRS Qualifiers: (9) Emphysema of lung Code(s): J43.9 - EMPHYSEMA, UNSPECIFIED (10) HTN (hypertension) Code(s): I10 - ESSENTIAL (PRIMARY) HYPERTENSION Qualifiers: (11) Malnutrition Code(s): E46 - UNSPECIFIED PROTEIN-CALORIE MALNUTRITION
--- NOTE | 2019-07-23 14:01 | PN ---
Progress Note (short form) - Note Progress Note: s: no cp palps dizzy; sob improving Current Medications Generic Name Dose Route Start Last Admin Trade Name Freq PRN Reason Stop Dose Admin Acetaminophen 650 mg 07/20/19 15:43 Tylenol - PO Q4H PRN PAIN LEVEL 1-5 Albuterol Sulfate 1 amp 07/20/19 15:42 07/22/19 10:00 Ventolin 0.083% Nebulizer Soln - NEB 1 amp Q4H PRN Administration SHORT OF BREATH/WHEEZING Albuterol/Ipratropium 1 amp 07/21/19 08:00 07/23/19 12:11 Duoneb - NEB 1 amp RQID [facility] Administration Alprazolam 1 mg 07/20/19 18:00 07/23/19 10:13 Xanax PO 1 mg QID [facility] Administration Atenolol 25 mg 07/21/19 10:00 07/23/19 10:13 Tenormin - PO 25 mg DAILY [facility] Administration Diltiazem HCl 120 mg 07/21/19 10:00 07/23/19 10:13 Cardizem Cd - PO 120 mg DAILY [facility] Administration Folic Acid 1 mg 07/21/19 10:00 07/23/19 10:13 Folic Acid - PO 1 mg DAILY [facility] Administration Ceftriaxone Sodium 1 gm/ 50 mls @ 200 mls/hr 07/20/19 18:15 07/23/19 10:13 Dextrose IVPB 200 mls/hr DAILY [facility] Administration Protocol Methylprednisolone Sodium Succinate 40 mg 07/22/19 15:00 07/23/19 09:09 Solu-Medrol - IVPUSH 40 mg Q6H-IV [facility] Administration Polyethylene Glycol 17 gm 07/21/19 10:00 07/23/19 10:15 Miralax (For Daily Use) - PO 17 grams DAILY [facility] Administration Tamsulosin HCl 0.8 mg 07/21/19 08:30 07/23/19 09:09 Flomax - PO 0.8 mg DAILY@0830 [facility] Administration Vital Signs Period Temp Pulse Resp BP Sys/Cleaning Pulse Ox Last 24 Hr 97.4 F-97.6 F 59-74 20-20 134-148/55-58 96-98 nad, no jvd rrr s1s2 no mrg cta bl nl eff aao3 no le e/c/c abd nt nd pos bs no jaundice diaphoresis CBC, BMP 07/23/19 07:20 07/23/19 07:20 ecg: sr,nl intervals, no ischemic changes cxr: no acute process echo 02/2018: nl lv/rv, mild tr, mod phtn echo 07/2018 nl LV/RV fn, mild MR, mod TR, PASP at least 41 mmHg a/p: 73 m hx copd, afib, htn, cad here with sob. sob, copd exac -no signs chf or ACS - manage per primary, pulm - on abx, steroids afib: -cont dilt, atenolol for rate control -has been off eliquis since prior admission 02/2019 for anemia htn: -stable, cont home meds cad: -unclear details, pt said he had cath at [facility] about 10 yrs ago and was told he had narrowing in artery but that due to its location it could not be fixed. - plavix and eliquis were dc'ed 02/2019 for anemia, diagnosed with esophageal adenocarcinoma
--- NOTE | 2019-07-23 15:59 | PN ---
Progress Note, Physician History of Present Illness: AWAKE, ALERT SEATED IN BED APPEARS MUCH MORE COMFORTABLE NO COMPLAINTS BREATHING NON LABORED ON NASAL CANNULA AFEBRILE WBC SL ELEVATED ON STEROIDS - Current Medication List Current Medications: Active Medications Acetaminophen (Tylenol -) 650 mg PO Q4H PRN PRN Reason: PAIN LEVEL 1-5 Albuterol Sulfate (Ventolin 0.083% Nebulizer Soln -) 1 amp NEB Q4H PRN PRN Reason: SHORT OF BREATH/WHEEZING Last Admin: 07/22/19 10:00 Dose: 1 amp Albuterol/Ipratropium (Duoneb -) 1 amp NEB RQID [facility] Last Admin: 07/23/19 12:11 Dose: 1 amp Alprazolam (Xanax) 1 mg PO QID [facility] Last Admin: 07/23/19 14:48 Dose: 1 mg Atenolol (Tenormin -) 25 mg PO DAILY [facility] Last Admin: 07/23/19 10:13 Dose: 25 mg Diltiazem HCl (Cardizem Cd -) 120 mg PO DAILY [facility] Last Admin: 07/23/19 10:13 Dose: 120 mg Folic Acid (Folic Acid -) 1 mg PO DAILY [facility] Last Admin: 07/23/19 10:13 Dose: 1 mg Ceftriaxone Sodium 1 gm/ (Dextrose) 50 mls @ 200 mls/hr IVPB DAILY [facility]; Protocol Last Admin: 07/23/19 10:13 Dose: 200 mls/hr Methylprednisolone Sodium Succinate (Solu-Medrol -) 40 mg IVPUSH Q6H-IV [facility] Last Admin: 07/23/19 14:48 Dose: 40 mg Polyethylene Glycol (Miralax (For Daily Use) -) 17 gm PO DAILY [facility] Last Admin: 07/23/19 10:15 Dose: 17 grams Tamsulosin HCl (Flomax -) 0.8 mg PO DAILY@0830 [facility] Last Admin: 07/23/19 09:09 Dose: 0.8 mg - Objective Vital Signs: Vital Signs Temperature 97.6 F 07/23/19 14:54 Pulse Rate 65 07/23/19 14:54 Respiratory Rate 20 07/23/19 14:54 Blood Pressure 116/68 07/23/19 14:54 O2 Sat by Pulse Oximetry (%) 96 07/23/19 12:10 Constitutional: Yes: No Distress Cardiovascular: Yes: Regular Rate and Rhythm, S1, S2 Respiratory: Yes: Diminished Gastrointestinal: Yes: Normal Bowel Sounds, Soft. No: Tenderness ...Rectal Exam: Yes: Guaiac Trace Edema: No Labs: CBC, BMP 07/23/19 07:20 07/23/19 07:20 INR, PTT INR 0.98 (0.83-1.09) 07/20/19 11:00 Assessment/Plan ACUTE EXACERBATION COPD ? PNEUMONIA ADENOCARCINOMA OF ESOPHAGUS CONTINUE EMPIRIC CEFTRIAXONE BRONCHODILATORS/ STEROIDS
--- NOTE | 2019-07-23 18:57 | CONS ---
DATE OF CONSULTATION: 07/20/2019 HISTORY OF PRESENT ILLNESS: The patient is a 73-year-old male who was evaluated for possible sepsis. He was admitted to the hospital on July 20, 2019 after a fall. According to the chart, he had had increasing generalized weakness over the past several days as well as increasing shortness of breath and a cough productive of greenish sputum. He was seen in the emergency room where a CAT scan of the head was performed and was negative for acute infarct or bleed. A chest x-ray was negative for infiltrate. He is unable to give a history. He is a poor historian and is presently on BiPAP. He has a history of esophageal adenocarcinoma and has apparently recently had chemotherapy. He has an indwelling port. He is unable to offer any additional history. PAST MEDICAL HISTORY: Positive for adenocarcinoma of the esophagus, COPD, hypertension, BPH, atrial fibrillation. PAST SURGICAL HISTORY: Status post appendectomy, hernia repair, permanent pacemaker and port placement. ALLERGIES: No known drug allergies. MEDICATIONS: Albuterol, Xanax, Cardizem, Flomax, vancomycin and Zosyn. LABORATORY DATA: White count 9.7, hematocrit 40.5, platelets 206, creatinine 0.5. Urinalysis shows 61 white cells. Influenza swab negative. Liver enzymes within normal limits. PHYSICAL EXAMINATION: General: The patient looks chronically ill. He is short of breath on a BiPAP mask. Vital Signs: Temperature 97.4, blood pressure 144/72, pulse 89 and regular, respirations 20 per minute. HEENT:: Sclerae anicteric. Heart: Heart sounds S1, S2. Lungs: Diminished breath sounds bilaterally. Port site with no erythema or tenderness. Abdomen: Soft and nontender. Extremities: Negative for edema. IMPRESSION: 1. Acute exacerbation of chronic obstructive pulmonary disease. 2. Productive cough; rule out pneumonia. 3. Adenocarcinoma of the esophagus. PLAN: 1. Cultures have been obtained. Will empirically treat with ceftriaxone for possible hospital-acquired pathogens in light of recent hospitalization in this non-neutropenic patient. 2. Continue treatment for exacerbation of chronic obstructive pulmonary disease. Thank you for the kind referral. CAM BRENNAN M.D. [id number]
[2019-07-24] MEDS: methylPREDNISolone NA SUCC 40 MG/1 ML VIAL IVPUSH SCH ×4 (03:02→21:32)
--- NOTE | 2019-07-24 06:07 | PN ---
Progress Note, Physician Chief Complaint: Patient seen and examined at the bedside, diminution of sob, on oxygen 3L/min via nasal cannula. History of Present Illness: This 73 yr old w/m with history of COPD, hypertension, anemia, BPH, atrial fibrillation, and esophageal adenocarcinoma admitted with acute generalized muscle weakness, lethargy, and ongoing productive cough of green sputum. - Current Medication List Current Medications: Active Medications Acetaminophen (Tylenol -) 650 mg PO Q4H PRN PRN Reason: PAIN LEVEL 1-5 Albuterol Sulfate (Ventolin 0.083% Nebulizer Soln -) 1 amp NEB Q4H PRN PRN Reason: SHORT OF BREATH/WHEEZING Last Admin: 07/22/19 10:00 Dose: 1 amp Albuterol/Ipratropium (Duoneb -) 1 amp NEB RQID [facility] Last Admin: 07/23/19 20:05 Dose: 1 amp Alprazolam (Xanax) 1 mg PO QID [facility] Last Admin: 07/23/19 21:39 Dose: 1 mg Atenolol (Tenormin -) 25 mg PO DAILY [facility] Last Admin: 07/23/19 10:13 Dose: 25 mg Diltiazem HCl (Cardizem Cd -) 120 mg PO DAILY [facility] Last Admin: 07/23/19 10:13 Dose: 120 mg Folic Acid (Folic Acid -) 1 mg PO DAILY [facility] Last Admin: 07/23/19 10:13 Dose: 1 mg Ceftriaxone Sodium 1 gm/ (Dextrose) 50 mls @ 200 mls/hr IVPB DAILY [facility]; Protocol Last Admin: 07/23/19 10:13 Dose: 200 mls/hr Methylprednisolone Sodium Succinate (Solu-Medrol -) 40 mg IVPUSH Q6H-IV [facility] Last Admin: 07/24/19 03:02 Dose: 40 mg Polyethylene Glycol (Miralax (For Daily Use) -) 17 gm PO DAILY [facility] Last Admin: 07/23/19 10:15 Dose: 17 grams Tamsulosin HCl (Flomax -) 0.8 mg PO DAILY@0830 [facility] Last Admin: 07/23/19 09:09 Dose: 0.8 mg - Objective Vital Signs: Vital Signs Temperature 97.8 F 07/23/19 19:59 Pulse Rate 66 07/23/19 19:59 Respiratory Rate 20 07/23/19 19:59 Blood Pressure 136/54 L 12/27/19 19:59 O2 Sat by Pulse Oximetry (%) 96 07/23/19 12:10 Constitutional: Yes: Cachectic, Thin Eyes: Yes: Conjunctiva Clear, EOM Intact HENT: Yes: Atraumatic, Normocephalic Neck: Yes: Supple, Trachea Midline Cardiovascular: Yes: Regular Rate and Rhythm, Other (hypertension, atrial fibrillation) Respiratory: Yes: CTA Bilaterally, On Nasal O2, Other (COPD, oxygen dependent, bronchitis, pneumoonia) Gastrointestinal: Yes: Other (esophageal adenocarcinoma) ...Rectal Exam: Yes: Deferred Genitourinary: Yes: Other (BPH) Breast(s): Yes: WNL Musculoskeletal: Yes: Muscle Weakness (generalized muscle weakness) Extremities: Yes: WNL Edema: No Peripheral Pulses: Left Radial: 2+, Right Radial: 2+, Left Doralis Pedis: 2+, Right Dorsalis Pedis: 2+, Left Femoral: 2+, Right Femoral: 2+ Integumentary: Yes: WNL Neurological: Yes: Alert, Oriented ...Motor Strength: LUE (generalized muscle weakness) Psychiatric: Yes: Alert, Oriented Labs: CBC, BMP 07/23/19 07:20 07/23/19 07:20 INR, PTT INR 0.98 (0.83-1.09) 07/20/19 11:00 - ....Imaging Other: Report Reviewed (Lab data reviewed) Problem List - Problems (1) Atelectasis of both lungs Code(s): J98.11 - ATELECTASIS (2) COPD exacerbation Code(s): J44.1 - CHRONIC OBSTRUCTIVE PULMONARY DISEASE W (ACUTE) EXACERBATION (3) Respiratory failure with hypoxia and hypercapnia Code(s): J96.91 - RESPIRATORY FAILURE, UNSPECIFIED WITH HYPOXIA; J96.92 - RESPIRATORY FAILURE, UNSPECIFIED WITH HYPERCAPNIA Qualifiers: Chronicity: acute on chronic Qualified Code(s): J96.21 - Acute and chronic respiratory failure with hypoxia; J96.22 - Acute and chronic respiratory failure with hypercapnia (4) Acute on chronic respiratory failure with hypoxia and hypercapnia Code(s): J96.21 - ACUTE AND CHRONIC RESPIRATORY FAILURE WITH HYPOXIA; J96.22 - ACUTE AND CHRONIC RESPIRATORY FAILURE WITH HYPERCAPNIA (5) Acute respiratory failure Code(s): J96.00 - ACUTE RESPIRATORY FAILURE, UNSP W HYPOXIA OR HYPERCAPNIA (6) Adenocarcinoma of esophagus, stage 4 Code(s): C15.9 - MALIGNANT NEOPLASM OF ESOPHAGUS, UNSPECIFIED (7) Anemia Code(s): D64.9 - ANEMIA, UNSPECIFIED (8) Liver masses Code(s): R16.0 - HEPATOMEGALY, NOT ELSEWHERE CLASSIFIED (9) MRSA (methicillin resistant Staphylococcus aureus) carrier Code(s): Z22.322 - CARRIER OR SUSPECTED CARRIER OF METHICILLIN RESIS STAPH (10) Metastatic cancer Code(s): C79.9 - SECONDARY MALIGNANT NEOPLASM OF UNSPECIFIED SITE (11) Pneumonia Code(s): J18.9 - PNEUMONIA, UNSPECIFIED ORGANISM Qualifiers: (12) Prophylactic measure Code(s): Z29.9 - ENCOUNTER FOR PROPHYLACTIC MEASURES, UNSPECIFIED (13) Rapid atrial fibrillation Code(s): I48.91 - UNSPECIFIED ATRIAL FIBRILLATION (14) Severe protein-calorie malnutrition Code(s): E43 - UNSPECIFIED SEVERE PROTEIN-CALORIE MALNUTRITION (15) Emphysema of lung Code(s): J43.9 - EMPHYSEMA, UNSPECIFIED (16) HTN (hypertension) Code(s): I10 - ESSENTIAL (PRIMARY) HYPERTENSION Qualifiers: Assessment/Plan Plan: IV Ceftriaxone, IV Methylprednisolone, bronchodilators, oxygen 3L/min via nasal cannula, Tamsulosin (bph), Tenormin, Diltiazem, incentive spirometer, physical therapy, repeat cbc/diff and cmp.
[2019-07-24 07:15] LABS: BASO % 0.1 % (0-2.0); HEMATOCRIT 35.1 % (35.4-49); LYMPH % 1.6 % (8-40); MCH 26.3 pg (25.7-33.7); MCHC 31.4 g/dl (32.0-35.9); MEAN CELL VOLUME 83.8 fl (80-96); MEAN PLT VOLUME 8.6 fl (7.5-11.1); MONO % 5.5 % (3.8-10.2); NEUT % 92.8 % (42.8-82.8); PLATELET COUNT 196 K/MM3 (134-434); RBC 4.19 M/mm3 (4.00-5.60); RDW 19.6 % (11.9-15.9); WHITE BLOOD COUNT 13.4 K/mm3 (4.0-10.0)
[2019-07-24] MEDS: ALBUTEROL SO4 2.5/IPRATROPIUM 0.5 INH SOL 3 ML VIAL.NEB. NEB SCH ×4 (07:31→19:35)
[2019-07-24 07:50] LABS: BLOOD UREA NITROGEN 12.4 mg/dL (7-18); CALCIUM 8.3 mg/dL (8.5-10.1); CREATININE 0.4 mg/dL (0.55-1.3); POTASSIUM 4.2 mmol/L (3.5-5.1)
[2019-07-24] MEDS ORDERED: cefTRIAXone SODIUM 1 GM VIAL ONE (09:09)
[2019-07-24] MEDS ORDERED: DEXTROSE 5%-WATER - 50 ML IVPB ONE (09:09)
[2019-07-24] MEDS: ALPRAZolam 1 MG TABLET PO SCH ×4 (09:39→21:32)
[2019-07-24] MEDS: FOLIC ACID 1 MG TABLET (FP) PO SCH (09:39)
[2019-07-24] MEDS: CEFTRIAXONE 1 GM in DEXTROSE 5%-WATER - 50 ML IVPB SCH (09:39)
[2019-07-24] MEDS: ATENOLOL 25 MG TABLET (FP) PO SCH (09:39)
[2019-07-24] MEDS: TAMSULOSIN HCL 0.4 MG CAP PO SCH (09:39)
--- NOTE | 2019-07-24 10:18 | PN ---
Progress Note (short form) - Note Progress Note: Breathing feels better. Less SOB. No acute events overnight. Intake & Output 07/21/19 07/22/19 07/23/19 07/24/19 23:59 23:59 23:59 23:59 Intake Total 1274 857 970 250 Output Total 1600 Balance 1274 857 970 -1350 Weight 140 lb 141 lb 142 lb 142 lb 7 oz Last Vital Signs Temp Pulse Resp BP Pulse Ox 97.3 F L 58 L 21 H 143/62 94 L 07/24/19 06:00 07/24/19 06:00 07/24/19 06:00 07/24/19 06:00 07/24/19 07:31 Active Medications Acetaminophen (Tylenol -) 650 mg PO Q4H PRN PRN Reason: PAIN LEVEL 1-5 Albuterol Sulfate (Ventolin 0.083% Nebulizer Soln -) 1 amp NEB Q4H PRN PRN Reason: SHORT OF BREATH/WHEEZING Last Admin: 07/22/19 10:00 Dose: 1 amp Albuterol/Ipratropium (Duoneb -) 1 amp NEB RQID [facility] Last Admin: 07/24/19 07:31 Dose: 1 amp Alprazolam (Xanax) 1 mg PO QID [facility] Last Admin: 07/24/19 09:39 Dose: 1 mg Atenolol (Tenormin -) 25 mg PO DAILY [facility] Last Admin: 07/24/19 09:39 Dose: 25 mg Diltiazem HCl (Cardizem Cd -) 120 mg PO DAILY [facility] Last Admin: 07/24/19 09:39 Dose: 120 mg Folic Acid (Folic Acid -) 1 mg PO DAILY [facility] Last Admin: 07/24/19 09:39 Dose: 1 mg Ceftriaxone Sodium 1 gm/ (Dextrose) 50 mls @ 200 mls/hr IVPB DAILY [facility]; Protocol Last Admin: 07/24/19 09:39 Dose: 200 mls/hr Polyethylene Glycol (Miralax (For Daily Use) -) 17 gm PO DAILY [facility] Last Admin: 07/23/19 10:15 Dose: 17 grams Tamsulosin HCl (Flomax -) 0.8 mg PO DAILY@0830 [facility] Last Admin: 07/24/19 09:39 Dose: 0.8 mg Constitutional: Yes: No Distress, Poor Hygeine, Thin Eyes: Yes: Conjunctiva Clear, EOM Intact HENT: Yes: Atraumatic, Normocephalic Neck: Yes: Supple, Trachea Midline Cardiovascular: Yes: Pulse Irregular Respiratory: Yes: Cough, Diminished, On Nasal O2, Rhonchi, SOB, Wheezes. No: Accessory Muscle Use, Rales, Stridor ...Inspection: Yes: Other (Right ACW port ) ...Clubbing: No Gastrointestinal: Yes: Normal Bowel Sounds, Soft Renal/: Yes: WNL Musculoskeletal: Yes: WNL Extremities: Yes: WNL Edema: No Peripheral Pulses WNL: Yes Integumentary: Yes: WNL Neurological: Yes: WNL, Alert, Oriented ...Motor Strength: WNL Psychiatric: Yes: WNL, Alert, Oriented Laboratory Results - last 24 hr 07/23/19 07/24/19 07/24/19 07:20 06:05 06:05 WBC 13.4 H RBC 4.19 Hgb 11.0 L Hct 35.1 L MCV 83.8 MCH 26.3 MCHC 31.4 L RDW 19.6 H Plt Count 196 MPV 8.6 Absolute Neuts (auto) 12.5 H Neutrophils % 92.8 H Neutrophils % (Manual) 90.0 H Band Neutrophils % 1.0 Lymphocytes % 1.6 L Lymphocytes % (Manual) 2.0 L D Monocytes % 5.5 Monocytes % (Manual) 6 D Eosinophils % 0.0 Eosinophils % (Manual) 0.0 Basophils % 0.1 Basophils % (Manual) 0.0 Myelocytes % (Man) 0 Promyelocytes % (Man) 0 Blast Cells % (Manual) 0 Nucleated RBC % 0 Metamyelocytes 0 Hypochromia 1+ Platelet Estimate Normal Polychromasia 0 Poikilocytosis 0 Anisocytosis 1+ Microcytosis 1+ Macrocytosis 0 Sodium 137 Potassium 4.2 Chloride 95 L Carbon Dioxide 37 H Anion Gap 4 L BUN 12.4 Creatinine 0.4 L Est GFR (CKD-EPI)AfAm 134.66 Est GFR (CKD-EPI)NonAf 116.19 Random Glucose 121 H Calcium 8.3 L - Problems (1) Atelectasis of both lungs Code(s): J98.11 - ATELECTASIS (2) COPD exacerbation Code(s): J44.1 - CHRONIC OBSTRUCTIVE PULMONARY DISEASE W (ACUTE) EXACERBATION (3) Adenocarcinoma of esophagus, stage 4 Code(s): C15.9 - MALIGNANT NEOPLASM OF ESOPHAGUS, UNSPECIFIED (4) Anemia Code(s): D64.9 - ANEMIA, UNSPECIFIED (5) Pneumonia Code(s): J18.9 - PNEUMONIA, UNSPECIFIED ORGANISM Qualifiers: (6) Severe protein-calorie malnutrition Code(s): E43 - UNSPECIFIED SEVERE PROTEIN-CALORIE MALNUTRITION (7) Atrial fibrillation Code(s): I48.91 - UNSPECIFIED ATRIAL FIBRILLATION Qualifiers: (8) Coronary artery disease Code(s): I25.10 - ATHSCL HEART DISEASE OF [place] CORONARY ARTERY W/O ANG PCTRS Qualifiers: (9) Emphysema of lung Code(s): J43.9 - EMPHYSEMA, UNSPECIFIED (10) HTN (hypertension) Code(s): I10 - ESSENTIAL (PRIMARY) HYPERTENSION Qualifiers: (11) Malnutrition Code(s): E46 - UNSPECIFIED PROTEIN-CALORIE MALNUTRITION Assessment/Plan ABX per ID Taper Medrol BD TX standing and PRN Supplemental O2 as needed to maintain saturation No smoking PFTs once stable as an outpatient Dr Turner Problem List - Problems (1) Atelectasis of both lungs Code(s): J98.11 - ATELECTASIS (2) COPD exacerbation Code(s): J44.1 - CHRONIC OBSTRUCTIVE PULMONARY DISEASE W (ACUTE) EXACERBATION (3) Adenocarcinoma of esophagus, stage 4 Code(s): C15.9 - MALIGNANT NEOPLASM OF ESOPHAGUS, UNSPECIFIED (4) Anemia Code(s): D64.9 - ANEMIA, UNSPECIFIED (5) Pneumonia Code(s): J18.9 - PNEUMONIA, UNSPECIFIED ORGANISM Qualifiers: (6) Severe protein-calorie malnutrition Code(s): E43 - UNSPECIFIED SEVERE PROTEIN-CALORIE MALNUTRITION (7) Atrial fibrillation Code(s): I48.91 - UNSPECIFIED ATRIAL FIBRILLATION Qualifiers: (8) Coronary artery disease Code(s): I25.10 - ATHSCL HEART DISEASE OF [place] CORONARY ARTERY W/O ANG PCTRS Qualifiers: (9) Emphysema of lung Code(s): J43.9 - EMPHYSEMA, UNSPECIFIED (10) HTN (hypertension) Code(s): I10 - ESSENTIAL (PRIMARY) HYPERTENSION Qualifiers: (11) Malnutrition Code(s): E46 - UNSPECIFIED PROTEIN-CALORIE MALNUTRITION
[2019-07-24] MEDS: POLYETHYLENE GLYCOL 3350 119 GM BTL PO SCH (10:36)
[2019-07-24 11:46] LABS: ANISOCYTOSIS 1+; MACROCYTOSIS 1+; PLATELET ESTIMATE NORMAL; TARGET CELLS 1+
--- NOTE | 2019-07-24 12:33 | PN ---
Progress Note (short form) - Note Progress Note: s: sob improving. no chest pain, palps, dizziness Current Medications Acetaminophen (Tylenol -) 650 mg PO Q4H PRN PRN Reason: PAIN LEVEL 1-5 Albuterol Sulfate (Ventolin 0.083% Nebulizer Soln -) 1 amp NEB Q4H PRN PRN Reason: SHORT OF BREATH/WHEEZING Last Admin: 07/22/19 10:00 Dose: 1 amp Albuterol/Ipratropium (Duoneb -) 1 amp NEB RQID [facility] Last Admin: 07/24/19 11:18 Dose: 1 amp Alprazolam (Xanax) 1 mg PO QID [facility] Last Admin: 07/24/19 09:39 Dose: 1 mg Atenolol (Tenormin -) 25 mg PO DAILY [facility] Last Admin: 07/24/19 09:39 Dose: 25 mg Diltiazem HCl (Cardizem Cd -) 120 mg PO DAILY [facility] Last Admin: 07/24/19 09:39 Dose: 120 mg Folic Acid (Folic Acid -) 1 mg PO DAILY [facility] Last Admin: 07/24/19 09:39 Dose: 1 mg Ceftriaxone Sodium 1 gm/ (Dextrose) 50 mls @ 200 mls/hr IVPB DAILY [facility]; Protocol Last Admin: 07/24/19 09:39 Dose: 200 mls/hr Methylprednisolone Sodium Succinate (Solu-Medrol -) 40 mg IVPUSH Q12H [facility] Last Admin: 07/24/19 10:37 Dose: Not Given Polyethylene Glycol (Miralax (For Daily Use) -) 17 gm PO DAILY [facility] Last Admin: 07/24/19 10:36 Dose: 17 grams Tamsulosin HCl (Flomax -) 0.8 mg PO DAILY@0830 [facility] Last Admin: 07/24/19 09:39 Dose: 0.8 mg Vital Signs Period Temp Pulse Resp BP Sys/Cleaning Pulse Ox Last 24 Hr 97.3 F-97.8 F 58-101 20-22 116-156/54-68 94-94 nad, no jvd rrr s1s2 no mrg cta bl nl eff aao3 no le e/c/c abd nt nd pos bs no jaundice diaphoresis CBC, BMP 07/23/19 07:20 07/23/19 07:20 ecg: sr,nl intervals, no ischemic changes cxr: no acute process echo 02/2018: nl lv/rv, mild tr, mod phtn echo 07/2018 nl LV/RV fn, mild MR, mod TR, PASP at least 41 mmHg a/p: 73 m hx copd, afib, htn, cad here with sob. sob, copd exac -no signs chf or ACS - manage per primary, pulm - on abx, steroids afib: -cont dilt, atenolol for rate control -has been off eliquis since prior admission 02/2019 for anemia htn: -stable, cont home meds cad: -unclear details, pt said he had cath at [facility] about 10 yrs ago and was told he had narrowing in artery but that due to its location it could not be fixed. - plavix and eliquis were dc'ed 02/2019 for anemia, diagnosed with esophageal adenocarcinoma
[2019-07-24] MEDS: ALBUTEROL SO4 0.083% IH SOL 2.5 MG/3 ML VIAL.NEB. NEB PRN (23:33)
[2019-07-25 07:31] LABS: HEMATOCRIT 34.7 % (35.4-49); LYMPH % 1.5 % (8-40); MCH 26.3 pg (25.7-33.7); MCHC 31.6 g/dl (32.0-35.9); MEAN CELL VOLUME 83.5 fl (80-96); MEAN PLT VOLUME 8.6 fl (7.5-11.1); MONO % 7.9 % (3.8-10.2); NEUT % 90.6 % (42.8-82.8); PLATELET COUNT 197 K/MM3 (134-434); RBC 4.16 M/mm3 (4.00-5.60); RDW 19.9 % (11.9-15.9); WHITE BLOOD COUNT 13.5 K/mm3 (4.0-10.0)
[2019-07-25 07:51] LABS: ALBUMIN 2.5 g/dl (3.4-5.0); BILIRUBIN,TOTAL 0.2 mg/dL (0.2-1); BLOOD UREA NITROGEN 15.3 mg/dL (7-18); CALCIUM 8.2 mg/dL (8.5-10.1); CREATININE 0.4 mg/dL (0.55-1.3); POTASSIUM 4.3 mmol/L (3.5-5.1); TOT PROT 5.2 g/dl (6.4-8.2)
[2019-07-25] MEDS: ALBUTEROL SO4 2.5/IPRATROPIUM 0.5 INH SOL 3 ML VIAL.NEB. NEB SCH ×4 (08:35→20:18)
[2019-07-25] MEDS ORDERED: DEXTROSE 5%-WATER - 50 ML IVPB ONE (08:38)
[2019-07-25] MEDS ORDERED: cefTRIAXone SODIUM 1 GM VIAL ONE (08:38)
[2019-07-25] MEDS: FOLIC ACID 1 MG TABLET (FP) PO SCH (09:37)
[2019-07-25] MEDS: ALPRAZolam 1 MG TABLET PO SCH ×4 (09:37→21:30)
[2019-07-25] MEDS: ATENOLOL 25 MG TABLET (FP) PO SCH (09:37)
[2019-07-25] MEDS: TAMSULOSIN HCL 0.4 MG CAP PO SCH (09:38)
[2019-07-25] MEDS: CEFTRIAXONE 1 GM in DEXTROSE 5%-WATER - 50 ML IVPB SCH (09:40)
[2019-07-25] MEDS: methylPREDNISolone NA SUCC 40 MG/1 ML VIAL IVPUSH SCH ×2 (09:40→21:30)
[2019-07-25] MEDS: ALBUTEROL SO4 0.083% IH SOL 2.5 MG/3 ML VIAL.NEB. NEB PRN (10:20)
[2019-07-25] MEDS: POLYETHYLENE GLYCOL 3350 119 GM BTL PO SCH (10:25)
--- NOTE | 2019-07-25 10:25 | PN ---
Progress Note (short form) - Note Progress Note: Breathing feels a little better. Less SOB. No acute events overnight. Intake & Output 07/22/19 07/23/19 07/24/19 07/25/19 23:59 23:59 23:59 23:59 Intake Total 857 970 300 Output Total 3100 Balance 857 970 -2800 Weight 141 lb 142 lb 142 lb 7 oz 144 lb Last Vital Signs Temp Pulse Resp BP Pulse Ox 97.0 F L 76 20 154/78 97 07/25/19 05:42 07/25/19 05:42 07/25/19 05:42 07/25/19 05:42 07/24/19 23:34 Active Medications Acetaminophen (Tylenol -) 650 mg PO Q4H PRN PRN Reason: PAIN LEVEL 1-5 Albuterol Sulfate (Ventolin 0.083% Nebulizer Soln -) 1 amp NEB Q4H PRN PRN Reason: SHORT OF BREATH/WHEEZING Last Admin: 07/24/19 23:33 Dose: 1 amp Albuterol/Ipratropium (Duoneb -) 1 amp NEB RQID [facility] Last Admin: 07/25/19 08:35 Dose: 1 amp Alprazolam (Xanax) 1 mg PO QID [facility] Last Admin: 07/25/19 09:37 Dose: 1 mg Atenolol (Tenormin -) 25 mg PO DAILY [facility] Last Admin: 07/25/19 09:37 Dose: 25 mg Diltiazem HCl (Cardizem Cd -) 120 mg PO DAILY [facility] Last Admin: 07/25/19 09:38 Dose: 120 mg Folic Acid (Folic Acid -) 1 mg PO DAILY [facility] Last Admin: 07/25/19 09:37 Dose: 1 mg Ceftriaxone Sodium 1 gm/ (Dextrose) 50 mls @ 200 mls/hr IVPB DAILY [facility]; Protocol Last Admin: 07/25/19 09:40 Dose: 200 mls/hr Methylprednisolone Sodium Succinate (Solu-Medrol -) 40 mg IVPUSH Q12H [facility] Last Admin: 07/25/19 09:40 Dose: 40 mg Polyethylene Glycol (Miralax (For Daily Use) -) 17 gm PO DAILY [facility] Last Admin: 07/24/19 10:36 Dose: 17 grams Tamsulosin HCl (Flomax -) 0.8 mg PO DAILY@0830 [facility] Last Admin: 07/25/19 09:38 Dose: 0.8 mg Constitutional: Yes: No Distress, Thin Eyes: Yes: Conjunctiva Clear, EOM Intact HENT: Yes: Atraumatic, Normocephalic Neck: Yes: Supple, Trachea Midline Cardiovascular: Yes: Pulse Irregular Respiratory: Yes: Cough, Diminished, On Nasal O2, Rhonchi, SOB, Wheezes. No: Accessory Muscle Use, Rales, Stridor ...Inspection: Yes: Other (Right ACW port ) ...Clubbing: No Gastrointestinal: Yes: Normal Bowel Sounds, Soft Renal/: Yes: WNL Musculoskeletal: Yes: WNL Extremities: Yes: WNL Edema: No Peripheral Pulses WNL: Yes Integumentary: Yes: WNL Neurological: Yes: WNL, Alert, Oriented ...Motor Strength: WNL Psychiatric: Yes: WNL, Alert, Oriented Laboratory Results - last 24 hr 07/24/19 07/25/19 07/25/19 06:05 06:10 06:10 WBC 13.5 H RBC 4.16 Hgb 11.0 L Hct 34.7 L MCV 83.5 MCH 26.3 MCHC 31.6 L RDW 19.9 H Plt Count 197 MPV 8.6 Absolute Neuts (auto) 12.2 H Neutrophils % 90.6 H Neutrophils % (Manual) 97.0 H Band Neutrophils % 0.0 Lymphocytes % 1.5 L Lymphocytes % (Manual) 0.0 L Monocytes % 7.9 Monocytes % (Manual) 3 L Eosinophils % 0.0 Eosinophils % (Manual) 0.0 Basophils % 0.0 Basophils % (Manual) 0.0 Myelocytes % (Man) 0 Promyelocytes % (Man) 0 Blast Cells % (Manual) 0 Nucleated RBC % 0 Metamyelocytes 0 Hypochromia 1+ Platelet Estimate Normal Polychromasia 1+ Poikilocytosis 1+ Anisocytosis 1+ Microcytosis 0 Macrocytosis 1+ Target Cells 1+ Sodium 137 Potassium 4.3 Chloride 95 L Carbon Dioxide 40 H Anion Gap 2 L BUN 15.3 Creatinine 0.4 L Est GFR (CKD-EPI)AfAm 134.66 Est GFR (CKD-EPI)NonAf 116.19 Random Glucose 124 H Calcium 8.2 L Total Bilirubin 0.2 AST 28 ALT 22 Alkaline Phosphatase 71 Total Protein 5.2 L Albumin 2.5 L - Problems (1) Atelectasis of both lungs Code(s): J98.11 - ATELECTASIS (2) COPD exacerbation Code(s): J44.1 - CHRONIC OBSTRUCTIVE PULMONARY DISEASE W (ACUTE) EXACERBATION (3) Adenocarcinoma of esophagus, stage 4 Code(s): C15.9 - MALIGNANT NEOPLASM OF ESOPHAGUS, UNSPECIFIED (4) Anemia Code(s): D64.9 - ANEMIA, UNSPECIFIED (5) Pneumonia Code(s): J18.9 - PNEUMONIA, UNSPECIFIED ORGANISM Qualifiers: (6) Severe protein-calorie malnutrition Code(s): E43 - UNSPECIFIED SEVERE PROTEIN-CALORIE MALNUTRITION (7) Atrial fibrillation Code(s): I48.91 - UNSPECIFIED ATRIAL FIBRILLATION Qualifiers: (8) Coronary artery disease Code(s): I25.10 - ATHSCL HEART DISEASE OF [place] CORONARY ARTERY W/O ANG PCTRS Qualifiers: (9) Emphysema of lung Code(s): J43.9 - EMPHYSEMA, UNSPECIFIED (10) HTN (hypertension) Code(s): I10 - ESSENTIAL (PRIMARY) HYPERTENSION Qualifiers: (11) Malnutrition Code(s): E46 - UNSPECIFIED PROTEIN-CALORIE MALNUTRITION Assessment/Plan ABX per ID Medrol BID BD TX standing and PRN Supplemental O2 as needed to maintain saturation No smoking PFTs once stable as an outpatient Dr Turner Problem List - Problems (1) Atelectasis of both lungs Code(s): J98.11 - ATELECTASIS (2) COPD exacerbation Code(s): J44.1 - CHRONIC OBSTRUCTIVE PULMONARY DISEASE W (ACUTE) EXACERBATION (3) Adenocarcinoma of esophagus, stage 4 Code(s): C15.9 - MALIGNANT NEOPLASM OF ESOPHAGUS, UNSPECIFIED (4) Anemia Code(s): D64.9 - ANEMIA, UNSPECIFIED (5) Pneumonia Code(s): J18.9 - PNEUMONIA, UNSPECIFIED ORGANISM Qualifiers: (6) Severe protein-calorie malnutrition Code(s): E43 - UNSPECIFIED SEVERE PROTEIN-CALORIE MALNUTRITION (7) Atrial fibrillation Code(s): I48.91 - UNSPECIFIED ATRIAL FIBRILLATION Qualifiers: (8) Coronary artery disease Code(s): I25.10 - ATHSCL HEART DISEASE OF [place] CORONARY ARTERY W/O ANG PCTRS Qualifiers: (9) Emphysema of lung Code(s): J43.9 - EMPHYSEMA, UNSPECIFIED (10) HTN (hypertension) Code(s): I10 - ESSENTIAL (PRIMARY) HYPERTENSION Qualifiers: (11) Malnutrition Code(s): E46 - UNSPECIFIED PROTEIN-CALORIE MALNUTRITION
[2019-07-25] MEDS ORDERED: PORTA CATH FLUSH 10 ML IVPUSH ONE (10:47)
--- NOTE | 2019-07-25 12:29 | PN ---
Progress Note (short form) - Note Progress Note: s: sob better. no chest pain, palps, dizziness Current Medications Acetaminophen (Tylenol -) 650 mg PO Q4H PRN PRN Reason: PAIN LEVEL 1-5 Albuterol Sulfate (Ventolin 0.083% Nebulizer Soln -) 1 amp NEB Q4H PRN PRN Reason: SHORT OF BREATH/WHEEZING Last Admin: 07/25/19 10:20 Dose: 1 amp Albuterol/Ipratropium (Duoneb -) 1 amp NEB RQID [facility] Last Admin: 07/25/19 11:05 Dose: 1 amp Alprazolam (Xanax) 1 mg PO QID [facility] Last Admin: 07/25/19 09:37 Dose: 1 mg Atenolol (Tenormin -) 25 mg PO DAILY [facility] Last Admin: 07/25/19 09:37 Dose: 25 mg Diltiazem HCl (Cardizem Cd -) 120 mg PO DAILY [facility] Last Admin: 07/25/19 09:38 Dose: 120 mg Folic Acid (Folic Acid -) 1 mg PO DAILY [facility] Last Admin: 07/25/19 09:37 Dose: 1 mg Ceftriaxone Sodium 1 gm/ (Dextrose) 50 mls @ 200 mls/hr IVPB DAILY [facility]; Protocol Last Admin: 07/25/19 09:40 Dose: 200 mls/hr Methylprednisolone Sodium Succinate (Solu-Medrol -) 40 mg IVPUSH Q12H [facility] Last Admin: 07/25/19 09:40 Dose: 40 mg Polyethylene Glycol (Miralax (For Daily Use) -) 17 gm PO DAILY [facility] Last Admin: 07/25/19 10:25 Dose: 17 grams Tamsulosin HCl (Flomax -) 0.8 mg PO DAILY@0830 [facility] Last Admin: 07/25/19 09:38 Dose: 0.8 mg Vital Signs Period Temp Pulse Resp BP Sys/Cleaning Pulse Ox Last 24 Hr 97.0 F-98.4 F 71-91 20-20 105-157/58-78 94-97 nad, no jvd rrr s1s2 no mrg cta bl nl eff aao3 no le e/c/c abd nt nd pos bs no jaundice diaphoresis ecg: sr,nl intervals, no ischemic changes cxr: no acute process echo 02/2018: nl lv/rv, mild tr, mod phtn echo 07/2018 nl LV/RV fn, mild MR, mod TR, PASP at least 41 mmHg a/p: 73 m hx copd, afib, htn, cad here with sob. sob, copd exac -no signs chf or ACS - manage per primary, pulm - on abx, steroids afib: -cont dilt, atenolol for rate control -has been off eliquis since prior admission 02/2019 for anemia htn: -stable, cont home meds cad: -unclear details, pt said he had cath at [facility] about 10 yrs ago and was told he had narrowing in artery but that due to its location it could not be fixed. - plavix and eliquis were dc'ed 02/2019 for anemia, diagnosed with esophageal adenocarcinoma
--- NOTE | 2019-07-25 13:31 | PN ---
Progress Note, Physician Chief Complaint: Patient seen and examined at the bedside, productive cough, less dyspneic. History of Present Illness: This 73 yr old w/m with hx of COPD, HTN, anemia, BPH, atrial fibrillation, and esophageal adenocarcinoma admitted with acute exacerbation of generalized muscle weakness, lethargy, witnessed fall, and ongoing green productive cough. - Current Medication List Current Medications: Active Medications Acetaminophen (Tylenol -) 650 mg PO Q4H PRN PRN Reason: PAIN LEVEL 1-5 Albuterol Sulfate (Ventolin 0.083% Nebulizer Soln -) 1 amp NEB Q4H PRN PRN Reason: SHORT OF BREATH/WHEEZING Last Admin: 07/25/19 10:20 Dose: 1 amp Albuterol/Ipratropium (Duoneb -) 1 amp NEB RQID [facility] Last Admin: 07/25/19 11:05 Dose: 1 amp Alprazolam (Xanax) 1 mg PO QID [facility] Last Admin: 07/25/19 09:37 Dose: 1 mg Atenolol (Tenormin -) 25 mg PO DAILY [facility] Last Admin: 07/25/19 09:37 Dose: 25 mg Diltiazem HCl (Cardizem Cd -) 120 mg PO DAILY [facility] Last Admin: 07/25/19 09:38 Dose: 120 mg Folic Acid (Folic Acid -) 1 mg PO DAILY [facility] Last Admin: 07/25/19 09:37 Dose: 1 mg Ceftriaxone Sodium 1 gm/ (Dextrose) 50 mls @ 200 mls/hr IVPB DAILY [facility]; Protocol Last Admin: 07/25/19 09:40 Dose: 200 mls/hr Methylprednisolone Sodium Succinate (Solu-Medrol -) 40 mg IVPUSH Q12H [facility] Last Admin: 07/25/19 09:40 Dose: 40 mg Polyethylene Glycol (Miralax (For Daily Use) -) 17 gm PO DAILY [facility] Last Admin: 07/25/19 10:25 Dose: 17 grams Tamsulosin HCl (Flomax -) 0.8 mg PO DAILY@0830 [facility] Last Admin: 07/25/19 09:38 Dose: 0.8 mg - Objective Vital Signs: Vital Signs Temperature 98.2 F 07/25/19 09:00 Pulse Rate 71 07/25/19 09:00 Respiratory Rate 20 07/25/19 10:00 Blood Pressure 157/59 L 07/25/19 09:00 O2 Sat by Pulse Oximetry (%) 97 07/25/19 10:00 Constitutional: Yes: No Distress, Cachectic Eyes: Yes: Conjunctiva Clear, EOM Intact HENT: Yes: Atraumatic, Normocephalic Neck: Yes: Supple, Trachea Midline Cardiovascular: Yes: Pulse Irregular Respiratory: Yes: Cough, Diminished, On Nasal O2, Rales, Rhonchi, SOB, Stridor, Wheezes Gastrointestinal: Yes: Normal Bowel Sounds, Soft ...Rectal Exam: Yes: Deferred Genitourinary: Yes: WNL Breast(s): Yes: WNL Musculoskeletal: Yes: Muscle Weakness Extremities: Yes: Other (warm and not swollen) Edema: No Peripheral Pulses WNL: Yes Peripheral Pulses: Left Radial: 3+, Right Radial: 3+, Left Doralis Pedis: 3+, Right Dorsalis Pedis: 3+, Left Femoral: 3+, Right Femoral: 3+ Integumentary: Yes: WNL Neurological: Yes: Alert ...Motor Strength: LUE (generalized muscle weakness of all extremities) Psychiatric: Yes: Alert Labs: CBC, BMP 07/25/19 06:10 07/25/19 06:10 INR, PTT INR 0.98 (0.83-1.09) 07/20/19 11:00 - ....Imaging Other: Report Reviewed (Lab data reviewed) Problem List - Problems (1) Atelectasis of both lungs Code(s): J98.11 - ATELECTASIS (2) COPD exacerbation Code(s): J44.1 - CHRONIC OBSTRUCTIVE PULMONARY DISEASE W (ACUTE) EXACERBATION (3) Respiratory failure with hypoxia and hypercapnia Code(s): J96.91 - RESPIRATORY FAILURE, UNSPECIFIED WITH HYPOXIA; J96.92 - RESPIRATORY FAILURE, UNSPECIFIED WITH HYPERCAPNIA Qualifiers: Chronicity: acute on chronic Qualified Code(s): J96.21 - Acute and chronic respiratory failure with hypoxia; J96.22 - Acute and chronic respiratory failure with hypercapnia (4) Acute on chronic respiratory failure with hypoxia and hypercapnia Code(s): J96.21 - ACUTE AND CHRONIC RESPIRATORY FAILURE WITH HYPOXIA; J96.22 - ACUTE AND CHRONIC RESPIRATORY FAILURE WITH HYPERCAPNIA (5) Acute respiratory failure Code(s): J96.00 - ACUTE RESPIRATORY FAILURE, UNSP W HYPOXIA OR HYPERCAPNIA (6) Adenocarcinoma of esophagus, stage 4 Code(s): C15.9 - MALIGNANT NEOPLASM OF ESOPHAGUS, UNSPECIFIED (7) Anemia Code(s): D64.9 - ANEMIA, UNSPECIFIED (8) Liver masses Code(s): R16.0 - HEPATOMEGALY, NOT ELSEWHERE CLASSIFIED (9) MRSA (methicillin resistant Staphylococcus aureus) carrier Code(s): Z22.322 - CARRIER OR SUSPECTED CARRIER OF METHICILLIN RESIS STAPH (10) Metastatic cancer Code(s): C79.9 - SECONDARY MALIGNANT NEOPLASM OF UNSPECIFIED SITE (11) Pneumonia Code(s): J18.9 - PNEUMONIA, UNSPECIFIED ORGANISM Qualifiers: (12) Prophylactic measure Code(s): Z29.9 - ENCOUNTER FOR PROPHYLACTIC MEASURES, UNSPECIFIED (13) Rapid atrial fibrillation Code(s): I48.91 - UNSPECIFIED ATRIAL FIBRILLATION (14) Severe protein-calorie malnutrition Code(s): E43 - UNSPECIFIED SEVERE PROTEIN-CALORIE MALNUTRITION (15) Emphysema of lung Code(s): J43.9 - EMPHYSEMA, UNSPECIFIED (16) HTN (hypertension) Code(s): I10 - ESSENTIAL (PRIMARY) HYPERTENSION Qualifiers: Assessment/Plan Assessment/plan: chronic bronchitis with acute exacerbation, acute dyspnea, acute generalized muscle weakness; IV Ceftriaxone, IV Methylprednisolone, bronchodilators, Atenolol and Diltiazem to control heart rate, oxygen 3L/min via nasal cannula, incentive spirometer, physical therapy.
[2019-07-26] MEDS: ALBUTEROL SO4 2.5/IPRATROPIUM 0.5 INH SOL 3 ML VIAL.NEB. NEB SCH ×4 (07:20→20:30)
[2019-07-26] MEDS ORDERED: cefTRIAXone SODIUM 1 GM VIAL ONE (09:01)
[2019-07-26] MEDS ORDERED: DEXTROSE 5%-WATER - 50 ML IVPB ONE (09:02)
[2019-07-26 09:19] LABS: HEMATOCRIT 38.5 % (35.4-49); LYMPH % 1.6 % (8-40); MCH 26.3 pg (25.7-33.7); MCHC 31.3 g/dl (32.0-35.9); MEAN CELL VOLUME 84.2 fl (80-96); MEAN PLT VOLUME 8.7 fl (7.5-11.1); MONO % 6.4 % (3.8-10.2); PLATELET COUNT 206 K/MM3 (134-434); RBC 4.57 M/mm3 (4.00-5.60); RDW 20.1 % (11.9-15.9)
[2019-07-26] MEDS: CEFTRIAXONE 1 GM in DEXTROSE 5%-WATER - 50 ML IVPB SCH (09:32)
[2019-07-26] MEDS: TAMSULOSIN HCL 0.4 MG CAP PO SCH (09:32)
[2019-07-26] MEDS: methylPREDNISolone NA SUCC 40 MG/1 ML VIAL IVPUSH SCH ×2 (09:32→21:43)
[2019-07-26] MEDS: POLYETHYLENE GLYCOL 3350 119 GM BTL PO SCH (09:33)
[2019-07-26] MEDS: ATENOLOL 25 MG TABLET (FP) PO SCH (09:33)
[2019-07-26] MEDS: FOLIC ACID 1 MG TABLET (FP) PO SCH (09:33)
[2019-07-26] MEDS: ALPRAZolam 1 MG TABLET PO SCH ×4 (09:33→23:06)
[2019-07-26] MEDS ORDERED: PORTA CATH FLUSH 10 ML IVPUSH ONE (10:59)
--- NOTE | 2019-07-26 11:49 | PN ---
Progress Note (short form) - Note Progress Note: PULMONARY Breathing better but still short of breath. +cough with clear sputum. Vital Signs Period Temp Pulse Resp BP Sys/Cleaning Pulse Ox Last 24 Hr 97.4 F-98.8 F 69-82 20-104 143-153/60-66 95-97 Gen: mildly tachypneic with speaking Heart: RRR Lung: distant breath sounds Abd: soft, nontender Ext: no edema CBC, BMP 07/26/19 07:10 07/25/19 06:10 Active Medications Acetaminophen (Tylenol -) 650 mg PO Q4H PRN PRN Reason: PAIN LEVEL 1-5 Albuterol Sulfate (Ventolin 0.083% Nebulizer Soln -) 1 amp NEB Q4H PRN PRN Reason: SHORT OF BREATH/WHEEZING Last Admin: 07/25/19 10:20 Dose: 1 amp Albuterol/Ipratropium (Duoneb -) 1 amp NEB RQID [facility] Last Admin: 07/26/19 11:35 Dose: 1 amp Alprazolam (Xanax) 1 mg PO QID [facility] Last Admin: 07/26/19 09:33 Dose: 1 mg Atenolol (Tenormin -) 25 mg PO DAILY [facility] Last Admin: 07/26/19 09:33 Dose: 25 mg Diltiazem HCl (Cardizem Cd -) 120 mg PO DAILY [facility] Last Admin: 07/26/19 09:32 Dose: 120 mg Folic Acid (Folic Acid -) 1 mg PO DAILY [facility] Last Admin: 07/26/19 09:33 Dose: 1 mg Ceftriaxone Sodium 1 gm/ (Dextrose) 50 mls @ 200 mls/hr IVPB DAILY [facility]; Protocol Last Admin: 07/26/19 09:32 Dose: 200 mls/hr Methylprednisolone Sodium Succinate (Solu-Medrol -) 40 mg IVPUSH Q12H [facility] Last Admin: 07/26/19 09:32 Dose: 40 mg Polyethylene Glycol (Miralax (For Daily Use) -) 17 gm PO DAILY [facility] Last Admin: 07/26/19 09:33 Dose: 17 grams Tamsulosin HCl (Flomax -) 0.8 mg PO DAILY@0830 [facility] Last Admin: 07/26/19 09:32 Dose: 0.8 mg A/P Acute on Chronic Hypoxic and Hypercapneic Respiratory Failure Acute COPD Exacerbation Atrial Fibrillation CAD Esophageal Cancer r/o UTI HTN - continue medrol at current dose - inhaled bronchodilators - O2 to keep SpO2 >90% - continue antibiotics - rate controlled - DVT prophylaxis
[2019-07-26 12:34] LABS: ANISOCYTOSIS 2+; MACROCYTOSIS 0; PLATELET ESTIMATE NORMAL
--- NOTE | 2019-07-26 14:50 | PN ---
Progress Note (short form) - Note Progress Note: s: no chest pain, palps, dizziness. stable sob Current Medications Acetaminophen (Tylenol -) 650 mg PO Q4H PRN PRN Reason: PAIN LEVEL 1-5 Albuterol Sulfate (Ventolin 0.083% Nebulizer Soln -) 1 amp NEB Q4H PRN PRN Reason: SHORT OF BREATH/WHEEZING Last Admin: 07/25/19 10:20 Dose: 1 amp Albuterol/Ipratropium (Duoneb -) 1 amp NEB RQID [facility] Last Admin: 07/26/19 11:35 Dose: 1 amp Alprazolam (Xanax) 1 mg PO QID [facility] Last Admin: 07/26/19 13:48 Dose: 1 mg Atenolol (Tenormin -) 25 mg PO DAILY [facility] Last Admin: 07/26/19 09:33 Dose: 25 mg Diltiazem HCl (Cardizem Cd -) 120 mg PO DAILY [facility] Last Admin: 07/26/19 09:32 Dose: 120 mg Folic Acid (Folic Acid -) 1 mg PO DAILY [facility] Last Admin: 07/26/19 09:33 Dose: 1 mg Ceftriaxone Sodium 1 gm/ (Dextrose) 50 mls @ 200 mls/hr IVPB DAILY [facility]; Protocol Last Admin: 07/26/19 09:32 Dose: 200 mls/hr Methylprednisolone Sodium Succinate (Solu-Medrol -) 40 mg IVPUSH Q12H [facility] Last Admin: 07/26/19 09:32 Dose: 40 mg Polyethylene Glycol (Miralax (For Daily Use) -) 17 gm PO DAILY [facility] Last Admin: 07/26/19 09:33 Dose: 17 grams Tamsulosin HCl (Flomax -) 0.8 mg PO DAILY@0830 [facility] Last Admin: 07/26/19 09:32 Dose: 0.8 mg Vital Signs Period Temp Pulse Resp BP Sys/Cleaning Pulse Ox Last 24 Hr 97.4 F-98.8 F 69-82 20-104 143-153/60-66 95-97 nad, no jvd rrr s1s2 no mrg cta bl nl eff aao3 no le e/c/c abd nt nd pos bs no jaundice diaphoresis ecg: sr,nl intervals, no ischemic changes cxr: no acute process echo 02/2018: nl lv/rv, mild tr, mod phtn echo 07/2018 nl LV/RV fn, mild MR, mod TR, PASP at least 41 mmHg a/p: 73 m hx copd, afib, htn, cad here with sob. sob, copd exac -no signs chf or ACS - manage per primary, pulm - on abx, steroids afib: -cont dilt, atenolol for rate control -has been off eliquis since prior admission 02/2019 for anemia htn: -stable, cont home meds cad: -unclear details, pt said he had cath at [facility] about 10 yrs ago and was told he had narrowing in artery but that due to its location it could not be fixed. - plavix and eliquis were dc'ed 02/2019 for anemia, diagnosed with esophageal adenocarcinoma
--- NOTE | 2019-07-26 16:02 | PN ---
Progress Note, Physician Chief Complaint: Patient seen and examined at the bedside, less dyspneic, less tachypneic. History of Present Illness: This 73 yr old w/m with history of COPD, HTN, anemia, BPH, atrial fibrillation and esophageal adenocarcinoma admitted with chronic bronchitis with acute exacerbation, generalized muscle weakness, lethargy and ongoing green productive cough. - Current Medication List Current Medications: Active Medications Acetaminophen (Tylenol -) 650 mg PO Q4H PRN PRN Reason: PAIN LEVEL 1-5 Albuterol Sulfate (Ventolin 0.083% Nebulizer Soln -) 1 amp NEB Q4H PRN PRN Reason: SHORT OF BREATH/WHEEZING Last Admin: 07/25/19 10:20 Dose: 1 amp Albuterol/Ipratropium (Duoneb -) 1 amp NEB RQID [facility] Last Admin: 07/26/19 11:35 Dose: 1 amp Alprazolam (Xanax) 1 mg PO QID [facility] Last Admin: 07/26/19 13:48 Dose: 1 mg Atenolol (Tenormin -) 25 mg PO DAILY [facility] Last Admin: 07/26/19 09:33 Dose: 25 mg Diltiazem HCl (Cardizem Cd -) 120 mg PO DAILY [facility] Last Admin: 07/26/19 09:32 Dose: 120 mg Folic Acid (Folic Acid -) 1 mg PO DAILY [facility] Last Admin: 07/26/19 09:33 Dose: 1 mg Ceftriaxone Sodium 1 gm/ (Dextrose) 50 mls @ 200 mls/hr IVPB DAILY [facility]; Protocol Last Admin: 07/26/19 09:32 Dose: 200 mls/hr Methylprednisolone Sodium Succinate (Solu-Medrol -) 40 mg IVPUSH Q12H [facility] Last Admin: 07/26/19 09:32 Dose: 40 mg Polyethylene Glycol (Miralax (For Daily Use) -) 17 gm PO DAILY [facility] Last Admin: 07/26/19 09:33 Dose: 17 grams Tamsulosin HCl (Flomax -) 0.8 mg PO DAILY@0830 [facility] Last Admin: 07/26/19 09:32 Dose: 0.8 mg - Objective Vital Signs: Vital Signs Temperature 97.9 F 07/26/19 10:00 Pulse Rate 82 07/26/19 10:00 Respiratory Rate 20 07/26/19 10:00 Blood Pressure 147/65 07/26/19 10:00 O2 Sat by Pulse Oximetry (%) 97 07/26/19 10:00 Constitutional: Yes: Cachectic, Mild Distress Eyes: Yes: Conjunctiva Clear, EOM Intact HENT: Yes: Atraumatic, Normocephalic Neck: Yes: Supple, Trachea Midline Cardiovascular: Yes: Regular Rate and Rhythm Respiratory: Yes: Diminished, On Nasal O2, Rhonchi, SOB, Tachypnea, Wheezes Gastrointestinal: Yes: Normal Bowel Sounds, Soft, Other (esophageal adenocarcinoma) ...Rectal Exam: Yes: Deferred Genitourinary: Yes: WNL Breast(s): Yes: WNL Musculoskeletal: Yes: Muscle Weakness Extremities: Yes: Other (generalized muscle weakness) Edema: No Peripheral Pulses: Left Radial: 3+, Right Radial: 3+, Left Doralis Pedis: 2+, Right Dorsalis Pedis: 2+, Left Femoral: 3+, Right Femoral: 3+ Integumentary: Yes: WNL Neurological: Yes: Alert, Oriented, Weakness Psychiatric: Yes: Alert, Oriented Labs: CBC, BMP 07/26/19 07:10 07/25/19 06:10 INR, PTT INR 0.98 (0.83-1.09) 07/20/19 11:00 - ....Imaging Other: Report Reviewed (Lab data reviewed.) Problem List - Problems (1) Atelectasis of both lungs Code(s): J98.11 - ATELECTASIS (2) COPD exacerbation Code(s): J44.1 - CHRONIC OBSTRUCTIVE PULMONARY DISEASE W (ACUTE) EXACERBATION (3) Respiratory failure with hypoxia and hypercapnia Code(s): J96.91 - RESPIRATORY FAILURE, UNSPECIFIED WITH HYPOXIA; J96.92 - RESPIRATORY FAILURE, UNSPECIFIED WITH HYPERCAPNIA Qualifiers: Chronicity: acute on chronic Qualified Code(s): J96.21 - Acute and chronic respiratory failure with hypoxia; J96.22 - Acute and chronic respiratory failure with hypercapnia (4) Acute on chronic respiratory failure with hypoxia and hypercapnia Code(s): J96.21 - ACUTE AND CHRONIC RESPIRATORY FAILURE WITH HYPOXIA; J96.22 - ACUTE AND CHRONIC RESPIRATORY FAILURE WITH HYPERCAPNIA (5) Acute respiratory failure Code(s): J96.00 - ACUTE RESPIRATORY FAILURE, UNSP W HYPOXIA OR HYPERCAPNIA (6) Adenocarcinoma of esophagus, stage 4 Code(s): C15.9 - MALIGNANT NEOPLASM OF ESOPHAGUS, UNSPECIFIED (7) Anemia Code(s): D64.9 - ANEMIA, UNSPECIFIED (8) Liver masses Code(s): R16.0 - HEPATOMEGALY, NOT ELSEWHERE CLASSIFIED (9) MRSA (methicillin resistant Staphylococcus aureus) carrier Code(s): Z22.322 - CARRIER OR SUSPECTED CARRIER OF METHICILLIN RESIS STAPH (10) Metastatic cancer Code(s): C79.9 - SECONDARY MALIGNANT NEOPLASM OF UNSPECIFIED SITE (11) Pneumonia Code(s): J18.9 - PNEUMONIA, UNSPECIFIED ORGANISM Qualifiers: (12) Prophylactic measure Code(s): Z29.9 - ENCOUNTER FOR PROPHYLACTIC MEASURES, UNSPECIFIED (13) Rapid atrial fibrillation Code(s): I48.91 - UNSPECIFIED ATRIAL FIBRILLATION (14) Severe protein-calorie malnutrition Code(s): E43 - UNSPECIFIED SEVERE PROTEIN-CALORIE MALNUTRITION (15) Emphysema of lung Code(s): J43.9 - EMPHYSEMA, UNSPECIFIED (16) HTN (hypertension) Code(s): I10 - ESSENTIAL (PRIMARY) HYPERTENSION Qualifiers: (17) Muscle weakness (generalized) Code(s): M62.81 - MUSCLE WEAKNESS (GENERALIZED) Assessment/Plan Assessment/plan: chronic bronchitis with acute on chronic exacerbation, acute on chronic respiratory failure with hypoxia and hypercapnia, atrial fibrillation , esophageal adenocarcinoma, generalized muscle weakness; IV Ceftriaxone, IV Methylprednisolone, bronchodilators, physical therapy, heart rate controlled with Diltiazem and Atenolol, incentive spirometer.
[2019-07-26 19:04] VITALS: BMI 18.0
--- NOTE | 2019-07-26 23:49 | PN ---
Progress Note, Physician History of Present Illness: AWAKE, ALERT OOB IN CHAIR NO COMPLAINTS BREATHING AFEBRILE WBC SL ELEVATED ON STEROIDS - Current Medication List Current Medications: Active Medications Acetaminophen (Tylenol -) 650 mg PO Q4H PRN PRN Reason: PAIN LEVEL 1-5 Albuterol Sulfate (Ventolin 0.083% Nebulizer Soln -) 1 amp NEB Q4H PRN PRN Reason: SHORT OF BREATH/WHEEZING Last Admin: 07/25/19 10:20 Dose: 1 amp Albuterol/Ipratropium (Duoneb -) 1 amp NEB RQID [facility] Last Admin: 07/26/19 20:30 Dose: 1 amp Alprazolam (Xanax) 1 mg PO QID [facility] Last Admin: 07/26/19 23:06 Dose: 1 mg Atenolol (Tenormin -) 25 mg PO DAILY [facility] Last Admin: 07/26/19 09:33 Dose: 25 mg Diltiazem HCl (Cardizem Cd -) 120 mg PO DAILY [facility] Last Admin: 07/26/19 09:32 Dose: 120 mg Folic Acid (Folic Acid -) 1 mg PO DAILY [facility] Last Admin: 07/26/19 09:33 Dose: 1 mg Ceftriaxone Sodium 1 gm/ (Dextrose) 50 mls @ 200 mls/hr IVPB DAILY [facility]; Protocol Last Admin: 07/26/19 09:32 Dose: 200 mls/hr Methylprednisolone Sodium Succinate (Solu-Medrol -) 40 mg IVPUSH Q12H [facility] Last Admin: 07/26/19 21:43 Dose: 40 mg Polyethylene Glycol (Miralax (For Daily Use) -) 17 gm PO DAILY [facility] Last Admin: 07/26/19 09:33 Dose: 17 grams Tamsulosin HCl (Flomax -) 0.8 mg PO DAILY@0830 [facility] Last Admin: 07/26/19 09:32 Dose: 0.8 mg - Objective Vital Signs: Vital Signs Temperature 98.7 F 07/26/19 22:14 Pulse Rate 71 07/26/19 22:14 Respiratory Rate 20 07/26/19 22:14 Blood Pressure 147/50 L 07/26/19 22:14 O2 Sat by Pulse Oximetry (%) 97 07/26/19 10:00 Constitutional: Yes: No Distress Cardiovascular: Yes: Regular Rate and Rhythm, S1, S2 Respiratory: Yes: Diminished Gastrointestinal: Yes: Normal Bowel Sounds, Soft Labs: CBC, BMP 07/26/19 07:10 07/25/19 06:10 INR, PTT INR 0.98 (0.83-1.09) 07/20/19 11:00 Assessment/Plan ACUTE EXACERBATION COPD ? PNEUMONIA ADENOCARCINOMA OF ESOPHAGUS CONTINUE EMPIRIC CEFTRIAXONE BRONCHODILATORS/ STEROIDS
[2019-07-27] MEDS: ALBUTEROL SO4 2.5/IPRATROPIUM 0.5 INH SOL 3 ML VIAL.NEB. NEB SCH ×4 (07:25→20:05)
[2019-07-27 07:50] LABS: HEMATOCRIT 35.9 % (35.4-49); HEMOGLOBIN 11.4 GM/dL (11.7-16.9); LYMPH % 1.5 % (8-40); MCH 26.4 pg (25.7-33.7); MCHC 31.7 g/dl (32.0-35.9); MEAN CELL VOLUME 83.2 fl (80-96); MEAN PLT VOLUME 8.4 fl (7.5-11.1); MONO % 4.3 % (3.8-10.2); NEUT % 94.2 % (42.8-82.8); PLATELET COUNT 207 K/MM3 (134-434); RBC 4.31 M/mm3 (4.00-5.60); RDW 20.1 % (11.9-15.9); WHITE BLOOD COUNT 14.4 K/mm3 (4.0-10.0)
[2019-07-27] MEDS ORDERED: cefTRIAXone SODIUM 1 GM VIAL ONE (08:32)
[2019-07-27] MEDS ORDERED: DEXTROSE 5%-WATER - 50 ML IVPB ONE (08:32)
[2019-07-27] MEDS: CEFTRIAXONE 1 GM in DEXTROSE 5%-WATER - 50 ML IVPB SCH (09:37)
[2019-07-27] MEDS: FOLIC ACID 1 MG TABLET (FP) PO SCH (09:38)
[2019-07-27] MEDS: TAMSULOSIN HCL 0.4 MG CAP PO SCH (09:38)
[2019-07-27] MEDS: ALPRAZolam 1 MG TABLET PO SCH ×4 (09:38→22:08)
[2019-07-27] MEDS: ATENOLOL 25 MG TABLET (FP) PO SCH (09:38)
[2019-07-27] MEDS: POLYETHYLENE GLYCOL 3350 119 GM BTL PO SCH (09:39)
[2019-07-27] MEDS: methylPREDNISolone NA SUCC 40 MG/1 ML VIAL IVPUSH SCH ×2 (09:39→22:08)
[2019-07-27] MEDS ORDERED: PORTA CATH FLUSH 10 ML IVPUSH ONE (10:16)
--- NOTE | 2019-07-27 10:46 | PN ---
Progress Note, Physician Chief Complaint: Patient seen and examined at the bedside, appetite fair, less dyspneic and tachypneic. History of Present Illness: This 73 yr old w/m with history of COPD, hypertension, anemia, BPH, and atrial fibrillation, and esophageal adenocarcinoma admitted with acute respiratory failure with hypoxia and hypercapnia, generalized muscle weakness, chronic bronchitis with acute exacerbation, lethargy, and ongoing green productive cough. - Current Medication List Current Medications: Active Medications Acetaminophen (Tylenol -) 650 mg PO Q4H PRN PRN Reason: PAIN LEVEL 1-5 Albuterol Sulfate (Ventolin 0.083% Nebulizer Soln -) 1 amp NEB Q4H PRN PRN Reason: SHORT OF BREATH/WHEEZING Last Admin: 07/25/19 10:20 Dose: 1 amp Albuterol/Ipratropium (Duoneb -) 1 amp NEB RQID [facility] Last Admin: 07/27/19 07:25 Dose: 1 amp Alprazolam (Xanax) 1 mg PO QID [facility] Last Admin: 07/27/19 09:38 Dose: 1 mg Atenolol (Tenormin -) 25 mg PO DAILY [facility] Last Admin: 07/27/19 09:38 Dose: 25 mg Diltiazem HCl (Cardizem Cd -) 120 mg PO DAILY [facility] Last Admin: 07/27/19 09:38 Dose: 120 mg Folic Acid (Folic Acid -) 1 mg PO DAILY [facility] Last Admin: 07/27/19 09:38 Dose: 1 mg Ceftriaxone Sodium 1 gm/ (Dextrose) 50 mls @ 200 mls/hr IVPB DAILY [facility]; Protocol Last Admin: 07/27/19 09:37 Dose: 200 mls/hr Methylprednisolone Sodium Succinate (Solu-Medrol -) 40 mg IVPUSH Q12H [facility] Last Admin: 07/27/19 09:39 Dose: 40 mg Polyethylene Glycol (Miralax (For Daily Use) -) 17 gm PO DAILY [facility] Last Admin: 07/27/19 09:39 Dose: 17 grams Tamsulosin HCl (Flomax -) 0.8 mg PO DAILY@0830 [facility] Last Admin: 07/27/19 09:38 Dose: 0.8 mg - Objective Vital Signs: Vital Signs Temperature 98.0 F 07/27/19 06:00 Pulse Rate 63 07/27/19 06:00 Respiratory Rate 20 07/27/19 10:00 Blood Pressure 152/75 07/27/19 06:00 O2 Sat by Pulse Oximetry (%) 100 07/27/19 10:00 Constitutional: Yes: Cachectic, Mild Distress Eyes: Yes: Conjunctiva Clear, EOM Intact HENT: Yes: Atraumatic, Normocephalic Neck: Yes: Supple, Trachea Midline Cardiovascular: Yes: Regular Rate and Rhythm Respiratory: Yes: Diminished, On Nasal O2, Rhonchi, SOB, Tachypnea Gastrointestinal: Yes: Normal Bowel Sounds, Soft ...Rectal Exam: Yes: Deferred Genitourinary: Yes: Other (BPH) Breast(s): Yes: WNL Musculoskeletal: Yes: Muscle Weakness Extremities: Yes: WNL Edema: No Peripheral Pulses WNL: Yes Peripheral Pulses: Left Radial: 3+, Right Radial: 3+, Left Doralis Pedis: 2+, Right Dorsalis Pedis: 2+, Left Femoral: 3+, Right Femoral: 3+ Integumentary: Yes: WNL Neurological: Yes: Alert, Oriented ...Motor Strength: LUE (generalized muscle weakness) Psychiatric: Yes: Alert, Oriented Labs: CBC, BMP 07/27/19 06:53 07/25/19 06:10 INR, PTT INR 0.98 (0.83-1.09) 07/20/19 11:00 - ....Imaging Other: Report Reviewed (Lab data reviewed) Problem List - Problems (1) Atelectasis of both lungs Code(s): J98.11 - ATELECTASIS (2) COPD exacerbation Code(s): J44.1 - CHRONIC OBSTRUCTIVE PULMONARY DISEASE W (ACUTE) EXACERBATION (3) Respiratory failure with hypoxia and hypercapnia Code(s): J96.91 - RESPIRATORY FAILURE, UNSPECIFIED WITH HYPOXIA; J96.92 - RESPIRATORY FAILURE, UNSPECIFIED WITH HYPERCAPNIA Qualifiers: Chronicity: acute on chronic Qualified Code(s): J96.21 - Acute and chronic respiratory failure with hypoxia; J96.22 - Acute and chronic respiratory failure with hypercapnia (4) Acute on chronic respiratory failure with hypoxia and hypercapnia Code(s): J96.21 - ACUTE AND CHRONIC RESPIRATORY FAILURE WITH HYPOXIA; J96.22 - ACUTE AND CHRONIC RESPIRATORY FAILURE WITH HYPERCAPNIA (5) Acute respiratory failure Code(s): J96.00 - ACUTE RESPIRATORY FAILURE, UNSP W HYPOXIA OR HYPERCAPNIA (6) Adenocarcinoma of esophagus, stage 4 Code(s): C15.9 - MALIGNANT NEOPLASM OF ESOPHAGUS, UNSPECIFIED (7) Anemia Code(s): D64.9 - ANEMIA, UNSPECIFIED (8) Liver masses Code(s): R16.0 - HEPATOMEGALY, NOT ELSEWHERE CLASSIFIED (9) MRSA (methicillin resistant Staphylococcus aureus) carrier Code(s): Z22.322 - CARRIER OR SUSPECTED CARRIER OF METHICILLIN RESIS STAPH (10) Metastatic cancer Code(s): C79.9 - SECONDARY MALIGNANT NEOPLASM OF UNSPECIFIED SITE (11) Pneumonia Code(s): J18.9 - PNEUMONIA, UNSPECIFIED ORGANISM Qualifiers: (12) Prophylactic measure Code(s): Z29.9 - ENCOUNTER FOR PROPHYLACTIC MEASURES, UNSPECIFIED (13) Rapid atrial fibrillation Code(s): I48.91 - UNSPECIFIED ATRIAL FIBRILLATION (14) Severe protein-calorie malnutrition Code(s): E43 - UNSPECIFIED SEVERE PROTEIN-CALORIE MALNUTRITION (15) Emphysema of lung Code(s): J43.9 - EMPHYSEMA, UNSPECIFIED (16) HTN (hypertension) Code(s): I10 - ESSENTIAL (PRIMARY) HYPERTENSION Qualifiers: (17) Muscle weakness (generalized) Code(s): M62.81 - MUSCLE WEAKNESS (GENERALIZED) Assessment/Plan Assessment/plan: acute respiratory failure with hypoxia and hypercapnia improving, acute exacerbation of COPD improving, generalized muscle weakness, ongoing productive cough; IV Ceftriaxone, IV Methylprednisolone, bronchodilators , physical therapy, incentive spirometer, oxygen 3L/min via nasal cannula, heart rate controlled with oral Atenolol and Diltiazem.
--- NOTE | 2019-07-27 11:11 | PN ---
Progress Note (short form) - Note Progress Note: s: no cp palps dizzy; sob improving Current Medications Generic Name Dose Route Start Last Admin Trade Name Freq PRN Reason Stop Dose Admin Acetaminophen 650 mg 07/20/19 15:43 Tylenol - PO Q4H PRN PAIN LEVEL 1-5 Albuterol Sulfate 1 amp 07/20/19 15:42 07/25/19 10:20 Ventolin 0.083% Nebulizer Soln - NEB 1 amp Q4H PRN Administration SHORT OF BREATH/WHEEZING Albuterol/Ipratropium 1 amp 07/21/19 08:00 07/27/19 07:25 Duoneb - NEB 1 amp RQID [facility] Administration Alprazolam 1 mg 07/20/19 18:00 07/27/19 09:38 Xanax PO 1 mg QID [facility] Administration Atenolol 25 mg 07/21/19 10:00 07/27/19 09:38 Tenormin - PO 25 mg DAILY [facility] Administration Diltiazem HCl 120 mg 07/21/19 10:00 07/27/19 09:38 Cardizem Cd - PO 120 mg DAILY [facility] Administration Folic Acid 1 mg 07/21/19 10:00 07/27/19 09:38 Folic Acid - PO 1 mg DAILY [facility] Administration Ceftriaxone Sodium 1 gm/ 50 mls @ 200 mls/hr 07/20/19 18:15 07/27/19 09:37 Dextrose IVPB 200 mls/hr DAILY [facility] Administration Protocol Methylprednisolone Sodium Succinate 40 mg 07/24/19 10:30 07/27/19 09:39 Solu-Medrol - IVPUSH 40 mg Q12H [facility] Administration Polyethylene Glycol 17 gm 07/21/19 10:00 07/27/19 09:39 Miralax (For Daily Use) - PO 17 grams DAILY [facility] Administration Tamsulosin HCl 0.8 mg 07/21/19 08:30 07/27/19 09:38 Flomax - PO 0.8 mg DAILY@0830 [facility] Administration Vital Signs Period Temp Pulse Resp BP Sys/Cleaning Pulse Ox Last 24 Hr 98.0 F-98.7 F 63-71 20-20 147-152/50-75 97-100 nad, no jvd rrr s1s2 no mrg cta bl nl eff aao3 no le e/c/c abd nt nd pos bs no jaundice diaphoresis CBC, BMP 07/27/19 06:53 07/25/19 06:10 ecg: sr,nl intervals, no ischemic changes cxr: no acute process echo 02/2018: nl lv/rv, mild tr, mod phtn echo 07/2018 nl LV/RV fn, mild MR, mod TR, PASP at least 41 mmHg a/p: 73 m hx copd, afib, htn, cad here with sob. sob, copd exac -no signs chf or ACS -manage per primary, pulm - on abx, steroids afib: -cont dilt, atenolol for rate control -has been off eliquis since prior admission 02/2019 for anemia htn: -stable, cont home meds cad: -unclear details, pt said he had cath at [facility] about 10 yrs ago and was told he had narrowing in artery but that due to its location it could not be fixed. - plavix and eliquis were dc'ed 02/2019 for anemia, diagnosed with esophageal adenocarcinoma
--- NOTE | 2019-07-27 11:44 | PN ---
Progress Note (short form) - Note Progress Note: PULMONARY Breathing better, less congestion. +cough with yellow sputum. Vital Signs Period Temp Pulse Resp BP Sys/Cleaning Pulse Ox Last 24 Hr 98.0 F-98.7 F 63-71 20-20 147-152/50-75 97-100 Gen: less tachypneic with speaking Heart: RRR Lung: distant breath sounds Abd: soft, nontender Ext: no edema CBC, BMP 07/27/19 06:53 07/25/19 06:10 Active Medications Acetaminophen (Tylenol -) 650 mg PO Q4H PRN PRN Reason: PAIN LEVEL 1-5 Albuterol Sulfate (Ventolin 0.083% Nebulizer Soln -) 1 amp NEB Q4H PRN PRN Reason: SHORT OF BREATH/WHEEZING Last Admin: 07/25/19 10:20 Dose: 1 amp Albuterol/Ipratropium (Duoneb -) 1 amp NEB RQID [facility] Last Admin: 07/27/19 07:25 Dose: 1 amp Alprazolam (Xanax) 1 mg PO QID [facility] Last Admin: 07/27/19 09:38 Dose: 1 mg Atenolol (Tenormin -) 25 mg PO DAILY [facility] Last Admin: 07/27/19 09:38 Dose: 25 mg Diltiazem HCl (Cardizem Cd -) 120 mg PO DAILY [facility] Last Admin: 07/27/19 09:38 Dose: 120 mg Folic Acid (Folic Acid -) 1 mg PO DAILY [facility] Last Admin: 07/27/19 09:38 Dose: 1 mg Ceftriaxone Sodium 1 gm/ (Dextrose) 50 mls @ 200 mls/hr IVPB DAILY [facility]; Protocol Last Admin: 07/27/19 09:37 Dose: 200 mls/hr Methylprednisolone Sodium Succinate (Solu-Medrol -) 40 mg IVPUSH Q12H [facility] Last Admin: 07/27/19 09:39 Dose: 40 mg Polyethylene Glycol (Miralax (For Daily Use) -) 17 gm PO DAILY [facility] Last Admin: 07/27/19 09:39 Dose: 17 grams Tamsulosin HCl (Flomax -) 0.8 mg PO DAILY@0830 [facility] Last Admin: 07/27/19 09:38 Dose: 0.8 mg A/P Acute on Chronic Hypoxic and Hypercapneic Respiratory Failure Acute COPD Exacerbation Atrial Fibrillation CAD Esophageal Cancer r/o UTI HTN - medrol taper, can likely change to PO in AM - inhaled bronchodilators - O2 to keep SpO2 >90% - continue antibiotics - rate controlled - DVT prophylaxis
[2019-07-27 14:44] LABS: ANISOCYTOSIS 0; MACROCYTOSIS 0; PLATELET ESTIMATE NORMAL
[2019-07-28] MEDS: ALBUTEROL SO4 2.5/IPRATROPIUM 0.5 INH SOL 3 ML VIAL.NEB. NEB SCH ×4 (07:35→20:42)
[2019-07-28 08:28] LABS: HEMOGLOBIN 12.3 GM/dL (11.7-16.9); LYMPH % 1.4 % (8-40); MCH 26.4 pg (25.7-33.7); MCHC 31.6 g/dl (32.0-35.9); MEAN CELL VOLUME 83.4 fl (80-96); MEAN PLT VOLUME 8.6 fl (7.5-11.1); MONO % 4.9 % (3.8-10.2); NEUT % 93.7 % (42.8-82.8); PLATELET COUNT 220 K/MM3 (134-434); RBC 4.68 M/mm3 (4.00-5.60); RDW 20.1 % (11.9-15.9)
[2019-07-28] MEDS: TAMSULOSIN HCL 0.4 MG CAP PO SCH (08:52)
[2019-07-28] MEDS ORDERED: DEXTROSE 5%-WATER - 50 ML IVPB ONE (09:51)
[2019-07-28] MEDS ORDERED: cefTRIAXone SODIUM 1 GM VIAL ONE (09:51)
[2019-07-28] MEDS: ALPRAZolam 1 MG TABLET PO SCH ×4 (09:53→22:36)
[2019-07-28] MEDS: FOLIC ACID 1 MG TABLET (FP) PO SCH (09:53)
[2019-07-28] MEDS: ATENOLOL 25 MG TABLET (FP) PO SCH (09:53)
[2019-07-28] MEDS: CEFTRIAXONE 1 GM in DEXTROSE 5%-WATER - 50 ML IVPB SCH (09:53)
[2019-07-28] MEDS: methylPREDNISolone NA SUCC 40 MG/1 ML VIAL IVPUSH SCH ×2 (09:54→22:36)
[2019-07-28] MEDS: POLYETHYLENE GLYCOL 3350 119 GM BTL PO SCH (09:58)
--- NOTE | 2019-07-28 11:06 | PN ---
Progress Note (short form) - Note Progress Note: PULMONARY Breathing continues to improve, less congestion. +cough with yellow sputum. Vital Signs Period Temp Pulse Resp BP Sys/Cleaning Pulse Ox Last 24 Hr 97.4 F-97.9 F 58-74 20-20 133-150/55-61 97-100 Gen: less tachypneic with speaking Heart: RRR Lung: distant breath sounds Abd: soft, nontender Ext: no edema CBC, BMP 07/28/19 07:13 07/25/19 06:10 Active Medications Acetaminophen (Tylenol -) 650 mg PO Q4H PRN PRN Reason: PAIN LEVEL 1-5 Albuterol Sulfate (Ventolin 0.083% Nebulizer Soln -) 1 amp NEB Q4H PRN PRN Reason: SHORT OF BREATH/WHEEZING Last Admin: 07/25/19 10:20 Dose: 1 amp Albuterol/Ipratropium (Duoneb -) 1 amp NEB RQID [facility] Last Admin: 07/28/19 11:01 Dose: 1 amp Alprazolam (Xanax) 1 mg PO QID [facility] Last Admin: 07/28/19 09:53 Dose: 1 mg Atenolol (Tenormin -) 25 mg PO DAILY [facility] Last Admin: 07/28/19 09:53 Dose: 25 mg Diltiazem HCl (Cardizem Cd -) 120 mg PO DAILY [facility] Last Admin: 07/28/19 09:53 Dose: 120 mg Folic Acid (Folic Acid -) 1 mg PO DAILY [facility] Last Admin: 07/28/19 09:53 Dose: 1 mg Ceftriaxone Sodium 1 gm/ (Dextrose) 50 mls @ 200 mls/hr IVPB DAILY [facility]; Protocol Last Admin: 07/28/19 09:53 Dose: 200 mls/hr Methylprednisolone Sodium Succinate (Solu-Medrol -) 40 mg IVPUSH Q12H [facility] Last Admin: 07/28/19 09:54 Dose: 40 mg Polyethylene Glycol (Miralax (For Daily Use) -) 17 gm PO DAILY [facility] Last Admin: 07/28/19 09:58 Dose: Not Given Tamsulosin HCl (Flomax -) 0.8 mg PO DAILY@0830 [facility] Last Admin: 07/28/19 08:52 Dose: 0.8 mg A/P Acute on Chronic Hypoxic and Hypercapneic Respiratory Failure Acute COPD Exacerbation Atrial Fibrillation CAD Esophageal Cancer r/o UTI HTN - medrol taper, can likely change to PO prednisone 40mg daily in AM - inhaled bronchodilators - O2 to keep SpO2 >90% - continue antibiotics - rate controlled - DVT prophylaxis
[2019-07-28 11:16] LABS: ANISOCYTOSIS 1+; MACROCYTOSIS 0; PLATELET ESTIMATE NORMAL
--- NOTE | 2019-07-28 13:30 | PN ---
Progress Note, Physician Chief Complaint: Patient seen and examined at the bedside, less dyspneic and tachypneic. History of Present Illness: This 73 yr old w/m with hx of COPD, hypertension, anemia, BPH, atrial fibrillation, and esophageal adenocarcinoma admitted with acute respiratory failure with hypoxia, acute exacerbation of COPD, acute generalized muscle weakness, acute lethargy, and ongoing green productive cough. - Current Medication List Current Medications: Active Medications Acetaminophen (Tylenol -) 650 mg PO Q4H PRN PRN Reason: PAIN LEVEL 1-5 Albuterol Sulfate (Ventolin 0.083% Nebulizer Soln -) 1 amp NEB Q4H PRN PRN Reason: SHORT OF BREATH/WHEEZING Last Admin: 07/25/19 10:20 Dose: 1 amp Albuterol/Ipratropium (Duoneb -) 1 amp NEB RQID [facility] Last Admin: 07/28/19 11:01 Dose: 1 amp Alprazolam (Xanax) 1 mg PO QID [facility] Last Admin: 07/28/19 09:53 Dose: 1 mg Atenolol (Tenormin -) 25 mg PO DAILY [facility] Last Admin: 07/28/19 09:53 Dose: 25 mg Diltiazem HCl (Cardizem Cd -) 120 mg PO DAILY [facility] Last Admin: 07/28/19 09:53 Dose: 120 mg Folic Acid (Folic Acid -) 1 mg PO DAILY [facility] Last Admin: 07/28/19 09:53 Dose: 1 mg Ceftriaxone Sodium 1 gm/ (Dextrose) 50 mls @ 200 mls/hr IVPB DAILY [facility]; Protocol Last Admin: 07/28/19 09:53 Dose: 200 mls/hr Methylprednisolone Sodium Succinate (Solu-Medrol -) 40 mg IVPUSH Q12H [facility] Last Admin: 07/28/19 09:54 Dose: 40 mg Polyethylene Glycol (Miralax (For Daily Use) -) 17 gm PO DAILY [facility] Last Admin: 07/28/19 09:58 Dose: Not Given Tamsulosin HCl (Flomax -) 0.8 mg PO DAILY@0830 [facility] Last Admin: 07/28/19 08:52 Dose: 0.8 mg - Objective Vital Signs: Vital Signs Temperature 97.5 F L 07/28/19 09:00 Pulse Rate 67 07/28/19 09:00 Respiratory Rate 20 07/28/19 09:00 Blood Pressure 133/55 L 07/28/19 09:00 O2 Sat by Pulse Oximetry (%) 97 07/28/19 10:00 Constitutional: Yes: Cachectic, Mild Distress Eyes: Yes: Conjunctiva Clear, EOM Intact HENT: Yes: Atraumatic, Normocephalic Neck: Yes: Supple, Trachea Midline Cardiovascular: Yes: Regular Rate and Rhythm Respiratory: Yes: CTA Bilaterally, Diminished, On Nasal O2, Rhonchi, SOB, Tachypnea Gastrointestinal: Yes: Normal Bowel Sounds, Soft ...Rectal Exam: Yes: Deferred Genitourinary: Yes: WNL Breast(s): Yes: WNL Musculoskeletal: Yes: WNL Extremities: Yes: WNL Edema: No Peripheral Pulses WNL: Yes Peripheral Pulses: Left Radial: 2+, Right Radial: 2+, Left Doralis Pedis: 2+, Right Dorsalis Pedis: 2+, Left Femoral: 2+, Right Femoral: 2+ Integumentary: Yes: WNL Neurological: Yes: Alert, Oriented ...Motor Strength: WNL Psychiatric: Yes: Alert Labs: CBC, BMP 07/28/19 07:13 07/25/19 06:10 INR, PTT INR 0.98 (0.83-1.09) 07/20/19 11:00 - ....Imaging Other: Report Reviewed (Lab data reviewed, Pulmonary note read and appreciated) Problem List - Problems (1) Atelectasis of both lungs Code(s): J98.11 - ATELECTASIS (2) COPD exacerbation Code(s): J44.1 - CHRONIC OBSTRUCTIVE PULMONARY DISEASE W (ACUTE) EXACERBATION (3) Respiratory failure with hypoxia and hypercapnia Code(s): J96.91 - RESPIRATORY FAILURE, UNSPECIFIED WITH HYPOXIA; J96.92 - RESPIRATORY FAILURE, UNSPECIFIED WITH HYPERCAPNIA Qualifiers: Chronicity: acute on chronic Qualified Code(s): J96.21 - Acute and chronic respiratory failure with hypoxia; J96.22 - Acute and chronic respiratory failure with hypercapnia (4) Acute on chronic respiratory failure with hypoxia and hypercapnia Code(s): J96.21 - ACUTE AND CHRONIC RESPIRATORY FAILURE WITH HYPOXIA; J96.22 - ACUTE AND CHRONIC RESPIRATORY FAILURE WITH HYPERCAPNIA (5) Acute respiratory failure Code(s): J96.00 - ACUTE RESPIRATORY FAILURE, UNSP W HYPOXIA OR HYPERCAPNIA (6) Adenocarcinoma of esophagus, stage 4 Code(s): C15.9 - MALIGNANT NEOPLASM OF ESOPHAGUS, UNSPECIFIED (7) Anemia Code(s): D64.9 - ANEMIA, UNSPECIFIED (8) Liver masses Code(s): R16.0 - HEPATOMEGALY, NOT ELSEWHERE CLASSIFIED (9) MRSA (methicillin resistant Staphylococcus aureus) carrier Code(s): Z22.322 - CARRIER OR SUSPECTED CARRIER OF METHICILLIN RESIS STAPH (10) Metastatic cancer Code(s): C79.9 - SECONDARY MALIGNANT NEOPLASM OF UNSPECIFIED SITE (11) Pneumonia Code(s): J18.9 - PNEUMONIA, UNSPECIFIED ORGANISM Qualifiers: (12) Prophylactic measure Code(s): Z29.9 - ENCOUNTER FOR PROPHYLACTIC MEASURES, UNSPECIFIED (13) Rapid atrial fibrillation Code(s): I48.91 - UNSPECIFIED ATRIAL FIBRILLATION (14) Severe protein-calorie malnutrition Code(s): E43 - UNSPECIFIED SEVERE PROTEIN-CALORIE MALNUTRITION (15) Emphysema of lung Code(s): J43.9 - EMPHYSEMA, UNSPECIFIED (16) HTN (hypertension) Code(s): I10 - ESSENTIAL (PRIMARY) HYPERTENSION Qualifiers: (17) Muscle weakness (generalized) Code(s): M62.81 - MUSCLE WEAKNESS (GENERALIZED) Assessment/Plan Assessment/plan: acute on chronic respiratory failure with hypoxia, acute on chronic exacerbation of COPD, acute on chronic generalized muscle weakness; IV Ceftriaxone, IV Methylprednisolone, bronchodilators, Diltiazem and Atenolol to control heart rate, incentive spirometer, physical therapy.
[2019-07-29] MEDS: TAMSULOSIN HCL 0.4 MG CAP PO SCH (08:41)
[2019-07-29] MEDS: ALBUTEROL SO4 2.5/IPRATROPIUM 0.5 INH SOL 3 ML VIAL.NEB. NEB SCH ×4 (08:49→20:20)
[2019-07-29] MEDS ORDERED: PT OWN MED DRAWER 7, Y5N ONE (09:44)
[2019-07-29] MEDS ORDERED: DEXTROSE 5%-WATER - 50 ML IVPB ONE (09:45)
[2019-07-29] MEDS ORDERED: cefTRIAXone SODIUM 1 GM VIAL ONE (09:45)
[2019-07-29] MEDS: ALPRAZolam 1 MG TABLET PO SCH ×4 (09:47→22:28)
[2019-07-29] MEDS: ATENOLOL 25 MG TABLET (FP) PO SCH (09:47)
[2019-07-29] MEDS: FOLIC ACID 1 MG TABLET (FP) PO SCH (09:47)
[2019-07-29] MEDS: CEFTRIAXONE 1 GM in DEXTROSE 5%-WATER - 50 ML IVPB SCH (09:48)
[2019-07-29] MEDS: methylPREDNISolone NA SUCC 40 MG/1 ML VIAL IVPUSH SCH (10:40)
--- NOTE | 2019-07-29 10:43 | PN ---
Progress Note (short form) - Note Progress Note: PULMONARY Breathing continues to improve, less congestion. +cough with yellow sputum. Vital Signs Period Temp Pulse Resp BP Sys/Cleaning Pulse Ox Last 24 Hr 97.4 F-97.9 F 62-65 20-20 137-143/53-65 94-97 Gen: less tachypneic with speaking Heart: RRR Lung: scattered rhonchi Abd: soft, nontender Ext: no edema CBC, BMP 07/28/19 07:13 07/25/19 06:10 Active Medications Acetaminophen (Tylenol -) 650 mg PO Q4H PRN PRN Reason: PAIN LEVEL 1-5 Albuterol Sulfate (Ventolin 0.083% Nebulizer Soln -) 1 amp NEB Q4H PRN PRN Reason: SHORT OF BREATH/WHEEZING Last Admin: 07/25/19 10:20 Dose: 1 amp Albuterol/Ipratropium (Duoneb -) 1 amp NEB RQID [facility] Last Admin: 07/29/19 08:49 Dose: 1 amp Alprazolam (Xanax) 1 mg PO QID [facility] Last Admin: 07/29/19 09:47 Dose: 1 mg Atenolol (Tenormin -) 25 mg PO DAILY [facility] Last Admin: 07/29/19 09:47 Dose: 25 mg Diltiazem HCl (Cardizem Cd -) 120 mg PO DAILY [facility] Last Admin: 07/29/19 09:47 Dose: 120 mg Folic Acid (Folic Acid -) 1 mg PO DAILY [facility] Last Admin: 07/29/19 09:47 Dose: 1 mg Ceftriaxone Sodium 1 gm/ (Dextrose) 50 mls @ 200 mls/hr IVPB DAILY [facility]; Protocol Last Admin: 07/29/19 09:48 Dose: 200 mls/hr Methylprednisolone Sodium Succinate (Solu-Medrol -) 40 mg IVPUSH Q12H [facility] Last Admin: 07/28/19 22:36 Dose: 40 mg Polyethylene Glycol (Miralax (For Daily Use) -) 17 gm PO DAILY [facility] Last Admin: 07/28/19 09:58 Dose: Not Given Tamsulosin HCl (Flomax -) 0.8 mg PO DAILY@0830 [facility] Last Admin: 07/29/19 08:41 Dose: 0.8 mg A/P Acute on Chronic Hypoxic and Hypercapneic Respiratory Failure improving Acute COPD Exacerbation Atrial Fibrillation CAD Esophageal Cancer r/o UTI HTN - will change steroids to PO prednisone 40mg daily - inhaled bronchodilators - O2 to keep SpO2 >90% - antibiotics per ID - rate controlled - DVT prophylaxis - can be discharged from pulmonary standpoint
[2019-07-29] MEDS: POLYETHYLENE GLYCOL 3350 119 GM BTL PO SCH (11:00)
--- NOTE | 2019-07-29 11:02 | PN ---
Progress Note (short form) - Note Progress Note: s: no cp palps dizzy; sob better, feels at baseline Current Medications Generic Name Dose Route Start Last Admin Trade Name Freq PRN Reason Stop Dose Admin Acetaminophen 650 mg 07/20/19 15:43 Tylenol - PO Q4H PRN PAIN LEVEL 1-5 Albuterol Sulfate 1 amp 07/20/19 15:42 07/25/19 10:20 Ventolin 0.083% Nebulizer Soln - NEB 1 amp Q4H PRN Administration SHORT OF BREATH/WHEEZING Albuterol/Ipratropium 1 amp 07/21/19 08:00 07/29/19 08:49 Duoneb - NEB 1 amp RQID GE Administration Alprazolam 1 mg 07/20/19 18:00 07/29/19 09:47 Xanax PO 1 mg QID GE Administration Atenolol 25 mg 07/21/19 10:00 07/29/19 09:47 Tenormin - PO 25 mg DAILY GE Administration Diltiazem HCl 120 mg 07/21/19 10:00 07/29/19 09:47 Cardizem Cd - PO 120 mg DAILY GE Administration Folic Acid 1 mg 07/21/19 10:00 07/29/19 09:47 Folic Acid - PO 1 mg DAILY GE Administration Ceftriaxone Sodium 1 gm/ 50 mls @ 200 mls/hr 07/20/19 18:15 07/29/19 09:48 Dextrose IVPB 200 mls/hr DAILY GE Administration Protocol Polyethylene Glycol 17 gm 07/21/19 10:00 07/29/19 11:00 Miralax (For Daily Use) - PO Not Given DAILY GE Prednisone 40 mg 07/30/19 10:00 Deltasone - PO DAILY GE Tamsulosin HCl 0.8 mg 07/21/19 08:30 07/29/19 08:41 Flomax - PO 0.8 mg DAILY@0830 [facility] Administration Vital Signs Period Temp Pulse Resp BP Sys/Cleaning Pulse Ox Last 24 Hr 97.4 F-97.9 F 62-65 20-20 137-143/53-65 94-97 nad, no jvd rrr s1s2 no mrg cta bl nl eff aao3 no le e/c/c abd nt nd pos bs no jaundice diaphoresis CBC, BMP 07/28/19 07:13 07/25/19 06:10 ecg: sr,nl intervals, no ischemic changes cxr: no acute process echo 02/2018: nl lv/rv, mild tr, mod phtn echo 07/2018 nl LV/RV fn, mild MR, mod TR, PASP at least 41 mmHg a/p: 73 m hx copd, afib, htn, cad here with sob. sob, copd exac -no signs chf or ACS -manage per primary, pulm - on abx, steroids afib: -cont dilt, atenolol for rate control -has been off eliquis since prior admission 02/2019 for anemia htn: -stable, cont home meds cad: -unclear details, pt said he had cath at [facility] about 10 yrs ago and was told he had narrowing in artery but that due to its location it could not be fixed. - plavix and eliquis were dc'ed 02/2019 for anemia, diagnosed with esophageal adenocarcinoma
--- NOTE | 2019-07-29 16:13 | PN ---
Progress Note (short form) - Note Progress Note: d/w PMD patient feels well no complaints less sob, on baseline oxygen less cough no diarrhea Vital Signs Period Temp Pulse Resp BP Sys/Cleaning Pulse Ox Last 24 Hr 97.4 F-98.0 F 62-84 20-20 134-143/53-79 94-97 no thrush cor-rrr lungs clear abd soft,nt ext no edema CBC, BMP 07/28/19 07:13 07/25/19 06:10 Microbiology 07/20/19 13:00 Blood - Petey Cath Blood Culture - Final NO GROWTH AFTER 5 DAYS INCUBATION 07/20/19 12:00 Blood - Peripheral Venous Blood Culture - Final NO GROWTH AFTER 5 DAYS INCUBATION 07/20/19 12:00 Blood - Peripheral Venous Blood Culture - Final NO GROWTH AFTER 5 DAYS INCUBATION 07/20/19 15:30 Urine - Urine Clean Catch Urine Culture - Final NO GROWTH OBTAINED cxray no infiltrate a/p acute copd exacerbation afib esophageal cancer has completed 10 days of ceftriaxone-will d/c further management per PMD d/w PMD at length
--- NOTE | 2019-07-29 16:18 | PN ---
Progress Note, Physician Chief Complaint: Patient seen and examined at the bedside, less dyspneic and tachypneic, soft stools. History of Present Illness: This 73 yr old w/m with history of COPD, hypertension, anemia, BPH, and esophageal adenocarcinoma admitted with acute respiratory failure with hypoxia, acute exacerbation of COPD, acute generalized muscle weakness, acute lethargy and acute productive cough. - Current Medication List Current Medications: Active Medications Acetaminophen (Tylenol -) 650 mg PO Q4H PRN PRN Reason: PAIN LEVEL 1-5 Albuterol Sulfate (Ventolin 0.083% Nebulizer Soln -) 1 amp NEB Q4H PRN PRN Reason: SHORT OF BREATH/WHEEZING Last Admin: 07/25/19 10:20 Dose: 1 amp Albuterol/Ipratropium (Duoneb -) 1 amp NEB RQID [facility] Last Admin: 07/29/19 16:06 Dose: 1 amp Alprazolam (Xanax) 1 mg PO QID [facility] Last Admin: 07/29/19 13:24 Dose: 1 mg Atenolol (Tenormin -) 25 mg PO DAILY [facility] Last Admin: 07/29/19 09:47 Dose: 25 mg Diltiazem HCl (Cardizem Cd -) 120 mg PO DAILY [facility] Last Admin: 07/29/19 09:47 Dose: 120 mg Folic Acid (Folic Acid -) 1 mg PO DAILY [facility] Last Admin: 07/29/19 09:47 Dose: 1 mg Ceftriaxone Sodium 1 gm/ (Dextrose) 50 mls @ 200 mls/hr IVPB DAILY [facility]; Protocol Last Admin: 07/29/19 09:48 Dose: 200 mls/hr Polyethylene Glycol (Miralax (For Daily Use) -) 17 gm PO DAILY [facility] Last Admin: 07/29/19 11:00 Dose: Not Given Prednisone (Deltasone -) 40 mg PO DAILY [facility] Tamsulosin HCl (Flomax -) 0.8 mg PO DAILY@0830 [facility] Last Admin: 07/29/19 08:41 Dose: 0.8 mg - Objective Vital Signs: Vital Signs Temperature 98.0 F 07/29/19 13:59 Pulse Rate 70 07/29/19 13:59 Respiratory Rate 20 07/29/19 10:00 Blood Pressure 134/70 07/29/19 13:59 O2 Sat by Pulse Oximetry (%) 94 L 07/29/19 10:00 Constitutional: Yes: Well Nourished, Cachectic, Mild Distress Eyes: Yes: Conjunctiva Clear, EOM Intact HENT: Yes: Atraumatic, Normocephalic Neck: Yes: Supple, Trachea Midline Cardiovascular: Yes: Regular Rate and Rhythm Respiratory: Yes: CTA Bilaterally, Diminished, On Nasal O2, Rhonchi Gastrointestinal: Yes: Normal Bowel Sounds, Soft, Other (soft stools) ...Rectal Exam: Yes: Deferred Genitourinary: Yes: WNL Breast(s): Yes: WNL Musculoskeletal: Yes: WNL Extremities: Yes: WNL Edema: No Peripheral Pulses: Left Radial: 2+, Right Radial: 2+, Left Doralis Pedis: 2+, Right Dorsalis Pedis: 2+, Left Femoral: 2+, Right Femoral: 2+ Integumentary: Yes: WNL Neurological: Yes: Alert, Oriented ...Motor Strength: WNL Psychiatric: Yes: Alert, Oriented Labs: CBC, BMP 07/28/19 07:13 07/25/19 06:10 INR, PTT INR 0.98 (0.83-1.09) 07/20/19 11:00 Problem List - Problems (1) Atelectasis of both lungs Code(s): J98.11 - ATELECTASIS (2) COPD exacerbation Code(s): J44.1 - CHRONIC OBSTRUCTIVE PULMONARY DISEASE W (ACUTE) EXACERBATION (3) Respiratory failure with hypoxia and hypercapnia Code(s): J96.91 - RESPIRATORY FAILURE, UNSPECIFIED WITH HYPOXIA; J96.92 - RESPIRATORY FAILURE, UNSPECIFIED WITH HYPERCAPNIA Qualifiers: Qualified Code(s): J96.21 - Acute and chronic respiratory failure with hypoxia; J96.22 - Acute and chronic respiratory failure with hypercapnia (4) Acute on chronic respiratory failure with hypoxia and hypercapnia Code(s): J96.21 - ACUTE AND CHRONIC RESPIRATORY FAILURE WITH HYPOXIA; J96.22 - ACUTE AND CHRONIC RESPIRATORY FAILURE WITH HYPERCAPNIA (5) Acute respiratory failure Code(s): J96.00 - ACUTE RESPIRATORY FAILURE, UNSP W HYPOXIA OR HYPERCAPNIA (6) Adenocarcinoma of esophagus, stage 4 Code(s): C15.9 - MALIGNANT NEOPLASM OF ESOPHAGUS, UNSPECIFIED (7) Anemia Code(s): D64.9 - ANEMIA, UNSPECIFIED (8) Liver masses Code(s): R16.0 - HEPATOMEGALY, NOT ELSEWHERE CLASSIFIED (9) MRSA (methicillin resistant Staphylococcus aureus) carrier Code(s): Z22.322 - CARRIER OR SUSPECTED CARRIER OF METHICILLIN RESIS STAPH (10) Metastatic cancer Code(s): C79.9 - SECONDARY MALIGNANT NEOPLASM OF UNSPECIFIED SITE (11) Pneumonia Code(s): J18.9 - PNEUMONIA, UNSPECIFIED ORGANISM Qualifiers: (12) Prophylactic measure Code(s): Z29.9 - ENCOUNTER FOR PROPHYLACTIC MEASURES, UNSPECIFIED (13) Rapid atrial fibrillation Code(s): I48.91 - UNSPECIFIED ATRIAL FIBRILLATION (14) Severe protein-calorie malnutrition Code(s): E43 - UNSPECIFIED SEVERE PROTEIN-CALORIE MALNUTRITION (15) Emphysema of lung Code(s): J43.9 - EMPHYSEMA, UNSPECIFIED (16) HTN (hypertension) Code(s): I10 - ESSENTIAL (PRIMARY) HYPERTENSION Qualifiers: (17) Muscle weakness (generalized) Code(s): M62.81 - MUSCLE WEAKNESS (GENERALIZED) Assessment/Plan Assessment/plan: acute on chronic respiratory failure with hypoxia, acute on chronic exacerbation of COPD, acute on chronic generalized muscle weakness, discussed clinical condition of the patient with ID Dr. Kolb, discharge planning, social work instructor request, physical therapy, incentive spirometer, discontinue IV Ceftriaxone, discontinue IV Methyprednisolone, start on Prednisone 40mg po daily.
[2019-07-30] MEDS: ALBUTEROL SO4 2.5/IPRATROPIUM 0.5 INH SOL 3 ML VIAL.NEB. NEB SCH ×3 (07:35→15:48)
[2019-07-30] MEDS ORDERED: predniSONE 20 MG TABLET (UD) PO SCH (10:00)
[2019-07-30] MEDS: TAMSULOSIN HCL 0.4 MG CAP PO SCH (10:03)
[2019-07-30] MEDS: ALPRAZolam 1 MG TABLET PO SCH ×2 (10:03→13:47)
[2019-07-30] MEDS: ATENOLOL 25 MG TABLET (FP) PO SCH (10:03)
[2019-07-30] MEDS: FOLIC ACID 1 MG TABLET (FP) PO SCH (10:03)
[2019-07-30] MEDS: POLYETHYLENE GLYCOL 3350 119 GM BTL PO SCH (10:08)
[2019-07-30 10:13] VITALS: TEMP 97.9
--- NOTE | 2019-07-30 10:44 | PN ---
Progress Note (short form) - Note Progress Note: s: no cp palps dizzy; sob better, feels at baseline Current Medications Generic Name Dose Route Start Last Admin Trade Name Freq PRN Reason Stop Dose Admin Acetaminophen 650 mg 07/20/19 15:43 Tylenol - PO Q4H PRN PAIN LEVEL 1-5 Albuterol Sulfate 1 amp 07/20/19 15:42 07/25/19 10:20 Ventolin 0.083% Nebulizer Soln - NEB 1 amp Q4H PRN Administration SHORT OF BREATH/WHEEZING Albuterol/Ipratropium 1 amp 07/21/19 08:00 07/30/19 07:35 Duoneb - NEB 1 amp RQID GE Administration Alprazolam 1 mg 07/20/19 18:00 07/30/19 10:03 Xanax PO 1 mg QID GE Administration Atenolol 25 mg 07/21/19 10:00 07/30/19 10:03 Tenormin - PO 25 mg DAILY GE Administration Diltiazem HCl 120 mg 07/21/19 10:00 07/30/19 10:03 Cardizem Cd - PO 120 mg DAILY GE Administration Folic Acid 1 mg 07/21/19 10:00 07/30/19 10:03 Folic Acid - PO 1 mg DAILY GE Administration Polyethylene Glycol 17 gm 07/21/19 10:00 07/30/19 10:08 Miralax (For Daily Use) - PO Not Given DAILY GE Prednisone 40 mg 07/30/19 10:00 07/30/19 10:04 Deltasone - PO 40 mg DAILY GE Administration Tamsulosin HCl 0.8 mg 07/21/19 08:30 07/30/19 10:03 Flomax - PO 0.8 mg DAILY@0830 GE Administration Vital Signs Period Temp Pulse Resp BP Sys/Cleaning Pulse Ox Last 24 Hr 97.8 F-98.0 F 62-82 20-20 131-134/59-77 94-99 nad, no jvd rrr s1s2 no mrg cta bl nl eff aao3 no le e/c/c abd nt nd pos bs no jaundice diaphoresis CBC, BMP 07/28/19 07:13 07/25/19 06:10 ecg: sr,nl intervals, no ischemic changes cxr: no acute process echo 02/2018: nl lv/rv, mild tr, mod phtn echo 07/2018 nl LV/RV fn, mild MR, mod TR, PASP at least 41 mmHg a/p: 73 m hx copd, afib, htn, cad here with sob. sob, copd exac -no signs chf or ACS -manage per primary, pulm - on abx, steroids afib: -cont dilt, atenolol for rate control -has been off eliquis since prior admission 02/2019 for anemia htn: -stable, cont home meds cad: -unclear details, pt said he had cath at [facility] about 10 yrs ago and was told he had narrowing in artery but that due to its location it could not be fixed. - plavix and eliquis were dc'ed 02/2019 for anemia, diagnosed with esophageal adenocarcinoma
--- NOTE | 2019-07-30 12:13 | PN ---
Progress Note (short form) - Note Progress Note: OOB to chair. Breathing feels a little better. Less SOB. No acute events overnight. Intake & Output 07/27/19 07/28/19 07/29/19 07/30/19 23:59 23:59 23:59 23:59 Intake Total 1050 1365 1390 200 Output Total 412 434 1259 900 Balance 450 665 90 -700 Weight 144 lb 4.8 oz 143 lb 4 oz 144 lb 6 oz 142 lb Last Vital Signs Temp Pulse Resp BP Pulse Ox 97.9 F 72 20 134/59 L 99 07/30/19 10:00 07/30/19 10:00 07/30/19 10:00 07/30/19 10:00 07/30/19 10:00 Active Medications Acetaminophen (Tylenol -) 650 mg PO Q4H PRN PRN Reason: PAIN LEVEL 1-5 Albuterol Sulfate (Ventolin 0.083% Nebulizer Soln -) 1 amp NEB Q4H PRN PRN Reason: SHORT OF BREATH/WHEEZING Last Admin: 07/25/19 10:20 Dose: 1 amp Albuterol/Ipratropium (Duoneb -) 1 amp NEB RQID [facility] Last Admin: 07/30/19 11:21 Dose: 1 amp Alprazolam (Xanax) 1 mg PO QID [facility] Last Admin: 07/30/19 10:03 Dose: 1 mg Atenolol (Tenormin -) 25 mg PO DAILY [facility] Last Admin: 07/30/19 10:03 Dose: 25 mg Diltiazem HCl (Cardizem Cd -) 120 mg PO DAILY [facility] Last Admin: 07/30/19 10:03 Dose: 120 mg Folic Acid (Folic Acid -) 1 mg PO DAILY [facility] Last Admin: 07/30/19 10:03 Dose: 1 mg Polyethylene Glycol (Miralax (For Daily Use) -) 17 gm PO DAILY [facility] Last Admin: 07/30/19 10:08 Dose: Not Given Prednisone (Deltasone -) 40 mg PO DAILY [facility] Last Admin: 07/30/19 10:04 Dose: 40 mg Tamsulosin HCl (Flomax -) 0.8 mg PO DAILY@0830 [facility] Last Admin: 07/30/19 10:03 Dose: 0.8 mg Constitutional: Yes: No Distress, Thin Eyes: Yes: Conjunctiva Clear, EOM Intact HENT: Yes: Atraumatic, Normocephalic Neck: Yes: Supple, Trachea Midline Cardiovascular: Yes: Pulse Irregular Respiratory: Yes: Cough, Diminished, On Nasal O2, Rhonchi, SOB, Wheezes. No: Accessory Muscle Use, Rales, Stridor ...Inspection: Yes: Other (Right ACW port ) ...Clubbing: No Gastrointestinal: Yes: Normal Bowel Sounds, Soft Renal/: Yes: WNL Musculoskeletal: Yes: WNL Extremities: Yes: WNL Edema: No Peripheral Pulses WNL: Yes Integumentary: Yes: WNL Neurological: Yes: WNL, Alert, Oriented ...Motor Strength: WNL Psychiatric: Yes: WNL, Alert, Oriented - Problems (1) Atelectasis of both lungs Code(s): J98.11 - ATELECTASIS (2) COPD exacerbation Code(s): J44.1 - CHRONIC OBSTRUCTIVE PULMONARY DISEASE W (ACUTE) EXACERBATION (3) Adenocarcinoma of esophagus, stage 4 Code(s): C15.9 - MALIGNANT NEOPLASM OF ESOPHAGUS, UNSPECIFIED (4) Anemia Code(s): D64.9 - ANEMIA, UNSPECIFIED (5) Pneumonia Code(s): J18.9 - PNEUMONIA, UNSPECIFIED ORGANISM Qualifiers: (6) Severe protein-calorie malnutrition Code(s): E43 - UNSPECIFIED SEVERE PROTEIN-CALORIE MALNUTRITION (7) Atrial fibrillation Code(s): I48.91 - UNSPECIFIED ATRIAL FIBRILLATION Qualifiers: (8) Coronary artery disease Code(s): I25.10 - ATHSCL HEART DISEASE OF [place] CORONARY ARTERY W/O ANG PCTRS Qualifiers: (9) Emphysema of lung Code(s): J43.9 - EMPHYSEMA, UNSPECIFIED (10) HTN (hypertension) Code(s): I10 - ESSENTIAL (PRIMARY) HYPERTENSION Qualifiers: (11) Malnutrition Code(s): E46 - UNSPECIFIED PROTEIN-CALORIE MALNUTRITION Assessment/Plan ABX per ID Prednisone taper BD TX Supplemental O2 as needed to maintain saturation No smoking PFTs once stable as an outpatient No Pulmonary contraindication for DC Dr Turner Problem List - Problems (1) Atelectasis of both lungs Code(s): J98.11 - ATELECTASIS (2) COPD exacerbation Code(s): J44.1 - CHRONIC OBSTRUCTIVE PULMONARY DISEASE W (ACUTE) EXACERBATION (3) Adenocarcinoma of esophagus, stage 4 Code(s): C15.9 - MALIGNANT NEOPLASM OF ESOPHAGUS, UNSPECIFIED (4) Anemia Code(s): D64.9 - ANEMIA, UNSPECIFIED (5) Pneumonia Code(s): J18.9 - PNEUMONIA, UNSPECIFIED ORGANISM Qualifiers: (6) Severe protein-calorie malnutrition Code(s): E43 - UNSPECIFIED SEVERE PROTEIN-CALORIE MALNUTRITION (7) Atrial fibrillation Code(s): I48.91 - UNSPECIFIED ATRIAL FIBRILLATION Qualifiers: (8) Coronary artery disease Code(s): I25.10 - ATHSCL HEART DISEASE OF [place] CORONARY ARTERY W/O ANG PCTRS Qualifiers: (9) Emphysema of lung Code(s): J43.9 - EMPHYSEMA, UNSPECIFIED (10) HTN (hypertension) Code(s): I10 - ESSENTIAL (PRIMARY) HYPERTENSION Qualifiers: (11) Malnutrition Code(s): E46 - UNSPECIFIED PROTEIN-CALORIE MALNUTRITION
--- NOTE | 2019-07-30 14:46 | DS ---
Physical Examination Vital Signs: Vital Signs Temperature 97.9 F 07/30/19 10:00 Pulse Rate 72 07/30/19 10:00 Respiratory Rate 20 07/30/19 10:00 Blood Pressure 134/59 L 07/30/19 10:00 O2 Sat by Pulse Oximetry (%) 99 07/30/19 10:00 Constitutional: Yes: No Distress, Calm, Cachectic Eyes: Yes: Conjunctiva Clear, EOM Intact HENT: Yes: Atraumatic, Normocephalic Neck: Yes: Supple, Trachea Midline Cardiovascular: Yes: Regular Rate and Rhythm Respiratory: Yes: CTA Bilaterally, Diminished, On Nasal O2, Rhonchi Gastrointestinal: Yes: Normal Bowel Sounds, Soft ...Rectal Exam: Yes: Deferred Renal/: Yes: WNL Breast(s): Yes: WNL Musculoskeletal: Yes: WNL Extremities: Yes: WNL Edema: No Peripheral Pulses WNL: Yes Peripheral Pulses: Left Radial: 2+, Right Radial: 2+, Left Doralis Pedis: 2+, Right Dorsalis Pedis: 2+, Left Femoral: 2+, Right Femoral: 2+ Integumentary: Yes: WNL Neurological: Yes: Alert, Oriented ...Motor Strength: WNL Psychiatric: Yes: WNL Labs: CBC, BMP 07/28/19 07:13 07/25/19 06:10 Discharge Summary Problems reviewed: Yes Reason For Visit: RESPIRATORY FAILURE W/HYPOXIA & HYPERCAPNIA Current Active Problems Atelectasis of both lungs (Acute) COPD exacerbation (Acute) Muscle weakness (generalized) (Acute) Respiratory failure with hypoxia and hypercapnia (Acute) Condition: Improved - Instructions Diet, Activity, Other Instructions: Continue on home medications. Prednisone 40mg po daily Oxygen 3L/min via nasal cannula. Activity as tolerated. Soft diet. Follow up with Dr. Michelle in 7 days. Total time spent over 30 minutes. Referrals: Piyush Cordoba [Primary Care Provider] - - Home Medications Comprehensive Discharge Medication List: Ambulatory Orders Alprazolam [Xanax] 1 mg PO QID 03/06/18 Albuterol 0.083% Nebulizer Verna [Ventolin 0.083% Nebulizer Soln -] 1 amp NEB Q4H PRN amp 12/29/18 Atenolol [Tenormin -] 25 mg PO DAILY 30 Days #30 tablet 12/29/18 Diltiazem Cd [Cardizem Cd -] 120 mg PO DAILY 30 Days #30 cap.cd.24h 06/18/19 Folic Acid - 1 mg PO DAILY 30 Days #30 tablet 06/18/19 Tamsulosin HCl [Flomax -] 0.8 mg PO DAILY@0830 30 Days #60 cap.er.24h 06/18/19 Acetaminophen [Tylenol .Regular Strength -] 650 mg PO Q4H PRN tablet 07/30/19 Albuterol 2.5/Ipratropium 0.5 [Duoneb -] 1 amp NEB RQID amp 07/30/19 Polyethylene Glycol 3350 [Miralax 119 gm Btl -] 17 gm PO DAILY bottle 07/30/19 predniSONE [Deltasone -] 40 mg PO DAILY tablet 07/30/19 Soft diet. Activity as tolerated. Oxygen 3L/min via nasal cannula. Total time spent over 30 minutes.
[2019-07-30 15:56] VITALS: BP 130/58; PULSE 71
== END 2019-07-30 17:51 | disposition home health service (06) | DRG 189 ==
LOC: JER 09:49 → JERBED 12:41 → J6S 18:17
PROVIDERS: ADMIT Family Medicine; ATTEND Family Medicine
DX: J96.21 Acute and chronic respiratory failure with hypoxia (principal); E43 Unspecified severe protein-calorie malnutrition; J18.9 Pneumonia, unspecified organism; J44.1 Chronic obstructive pulmonary disease with (acute) exacerbation; Z68.1 Body mass index [BMI] 19.9 or less, adult; C15.9 Malignant neoplasm of esophagus, unspecified; J98.11 Atelectasis; R64 Cachexia; J96.22 Acute and chronic respiratory failure with hypercapnia; I25.10 Atherosclerotic heart disease of native coronary artery without angina pectoris; I48.91 Unspecified atrial fibrillation; D64.9 Anemia, unspecified; N40.0 Benign prostatic hyperplasia without lower urinary tract symptoms; I10 Essential (primary) hypertension
CPT/HCPCS: 36415; 70450-TC; 71045-TC-FY; 72125-TC; 80048; 80053; 81003; 82550; 82803; 83735; 84484; 85025; 85027; 85610; 87040; 87086; 87804; 93005; 93010; 94010; 94640; 94660; 97116-GP; 97162-GP; 99285-25

== ENCOUNTER 2019-08-06 18:57 | Inpatient (IN) | payer OTHER, MEDICARE ==
--- NOTE | 2019-08-06 19:29 | PDOC ---
History of Present Illness - General Chief Complaint: Shortness of Breath Stated Complaint: SHORTNESS OF BREATH Time Seen by Provider: 08/06/19 19:25 History Source: Patient - History of Present Illness Initial Comments: 08/06/19 20:01 Mr. Figueroa is a 74 y/o man w/hx COPD, afib on eliquis, esophageal adenocardinoma p/w shortness of breath and confusion. He reports that around 1600, he became increasingly short of breath. His reports concern that he has been intermittently short of breath for the last 3 days, and during these periods of sob he becomes slow to respond with increased general weakness. He endorses sob, cough, fatigue, and generalized weakness, but denies any chest pain, confusion, fevers, chills, nausea, vomiting. She reports that he has had difficulty ambulating for the last 3 days secondary to generalized weakness, and is not able to walk at this time. Recent admit for COPD exacerbation from 07/20/19-07/30/19. Home O2: 3L Past History - Past Medical History Allergies/Adverse Reactions: Allergies Allergy/AdvReac Type Severity Reaction Status Date / Time No Known Allergies Allergy Verified 04/25/19 10:06 Home Medications: Ambulatory Orders Alprazolam [Xanax] 1 mg PO QID 03/06/18 Albuterol 0.083% Nebulizer Verna [Ventolin 0.083% Nebulizer Soln -] 1 amp NEB Q4H PRN amp 12/29/18 Atenolol [Tenormin -] 25 mg PO DAILY 30 Days #30 tablet 12/29/18 Diltiazem Cd [Cardizem Cd -] 120 mg PO DAILY 30 Days #30 cap.cd.24h 06/18/19 Folic Acid - 1 mg PO DAILY 30 Days #30 tablet 06/18/19 Tamsulosin HCl [Flomax -] 0.8 mg PO DAILY@0830 30 Days #60 cap.er.24h 06/18/19 Albuterol 2.5/Ipratropium 0.5 [Duoneb -] 1 amp NEB QID 07/20/19 Acetaminophen [Tylenol .Regular Strength -] 650 mg PO Q4H PRN tablet 07/30/19 Albuterol 0.083% Nebulizer Verna [Ventolin 0.083% Nebulizer Soln -] 1 amp NEB Q4H PRN amp 07/30/19 Albuterol 2.5/Ipratropium 0.5 [Duoneb -] 1 amp NEB RQID amp 07/30/19 Alprazolam [Xanax] 1 mg PO QID PRN #28 tablet MDD 4mg 07/30/19 Atenolol [Tenormin -] 25 mg PO DAILY tablet 07/30/19 Diltiazem Cd [Cardizem Cd -] 120 mg PO DAILY cap.cd.24h 07/30/19 Folic Acid - 1 mg PO DAILY tablet 07/30/19 Polyethylene Glycol 3350 [Miralax 119 gm Btl -] 17 gm PO DAILY bottle 07/30/19 Tamsulosin HCl [Flomax -] 0.8 mg PO DAILY@0830 cap.er.24h 07/30/19 predniSONE [Deltasone -] 40 mg PO DAILY tablet 07/30/19 Anemia: No Asthma: No Cancer: Yes Cardiac Disorders: Yes (A-fib) CVA: No COPD: Yes CHF: Yes Dementia: No Diabetes: No GI Disorders: No Disorders: Yes (BPH) HTN: Yes Hypercholesterolemia: No Liver Disease: No Seizures: No Thyroid Disease: No - Surgical History Abdominal Surgery: Yes (hernia) Appendectomy: Yes Cardiac Surgery: No Cholecystectomy: No GI Surgery: No Lung Surgery: No Neurologic Surgery: No Orthopedic Surgery: Yes (rt hip replacement) - Immunization History Immunization Up to Date: No - Psycho Social/Smoking Cessation Hx Smoking History: Former smoker Have you smoked in the past 12 months: No If you are a former smoker, when did you quit?: 1979 Hx Alcohol Use: No Drug/Substance Use Hx: No Substance Use Type: None Hx Substance Use Treatment: No Review of Systems - Review of Systems Able to Perform ROS?: Yes Comments:: 08/06/19 20:34 ROS: GENERAL/CONSTITUTIONAL: Weakness. No fever or chills. HEAD, EYES, EARS, NOSE AND THROAT: No change in vision. No ear pain or discharge. No sore throat. CARDIOVASCULAR: Shortness of breath. No chest pain RESPIRATORY: Cough. No wheezing, or hemoptysis. GASTROINTESTINAL: No nausea, vomiting, diarrhea or constipation. GENITOURINARY: No dysuria, frequency, or change in urination. MUSCULOSKELETAL: No joint or muscle swelling or pain. No neck or back pain. SKIN: No rash NEUROLOGIC: No headache, vertigo, loss of consciousness, or change in strength/ sensation. ENDOCRINE: No increased thirst. No abnormal weight change HEMATOLOGIC/LYMPHATIC: No anemia, easy bleeding, or history of blood clots. ALLERGIC/IMMUNOLOGIC: No hives or skin allergy. *Physical Exam - Physical Exam 08/06/19 20:36 PE: GENERAL: Slow to respond but awake, alert, and fully oriented, in no acute distress. HEAD: No signs of trauma, normocephalic, atraumatic EYES: PERRLA, EOMI, sclera anicteric, conjunctiva clear ENT: Auricles normal inspection, hearing grossly normal, nares patent, oropharynx clear without exudates. Moist mucosa NECK: Normal ROM, supple, no lymphadenopathy, JVD, or masses LUNGS: Minimal air movement to the bilateral lungs. Speaks full sentences HEART: Regular rate and rhythm, normal S1 and S2, no murmurs, rubs or gallops, peripheral pulses normal and equal bilaterally. ABDOMEN: Soft, nontender, normoactive bowel sounds. No guarding, no rebound. No masses EXTREMITIES : 1+ bilateral LE edema. Normal inspection, Normal range of motion. No clubbing or cyanosis NEUROLOGICAL: Cranial nerves II through XII grossly intact. Normal speech, normal gait, no focal sensorimotor deficits SKIN: Warm, Dry, normal turgor, no rashes or lesions noted ED Treatment Course - LABORATORY CBC & Chemistry Diagram: 08/08/19 06:23 08/08/19 06:23 Medical Decision Making - Medical Decision Making 08/06/19 20:39 74F w/hx COPD, afib on eliquis, esophageal CA p/w intermittent sob for 3 days with slowed verbal responsiveness and minimal air movement on exam, c/w COPD exacerbation with hypercarbia. CHF also possible given LE edema. Plan: CBC CMP VBG EKG CXR Duoneb x3 Solumedrol 125mg BNP CT Head w/o contrast Dispo: Likely admit --- WBC - 14.9 pCO2 - 71.9 trop - negative BNP - negative CXR - negative for acute process Plan for admission. Discharge - Discharge Information Problems reviewed: Yes Clinical Impression/Diagnosis: COPD exacerbation Condition: Stable - Admission Yes - Follow up/Referral - Patient Discharge Instructions - Post Discharge Activity
[2019-08-06] MEDS ORDERED: ALBUTEROL SO4 2.5/IPRATROPIUM 0.5 INH SOL 3 ML VIAL.NEB. NEB ONE ×2 (19:44→20:17)
[2019-08-06] MEDS ORDERED: methylPREDNISolone NA SUCC 125 MG/2 ML VIAL IVPB ONE (19:44)
[2019-08-06] MEDS ORDERED: methylPREDNISolone NA SUCC 125 MG/2 ML VIAL ONE (20:17)
--- NOTE | 2019-08-06 20:45 | PDOC ---
Documentation entered by Esteban Velez SCRIBE, acting as scribe for Serafin Chavez MD. Serafin Chavez MD: This documentation has been prepared by the Agustin deleon Daniel, SCRIBE, under my direction and personally reviewed by me in its entirety. I confirm that the documentation accurately reflects all work, treatment, procedures, and medical decision making performed by me. Attending Attestation - Resident Resident Name: Roshan Solitario - ED Attending Attestation I have performed the following: I have examined & evaluated the patient, The case was reviewed & discussed with the resident, I agree w/resident's findings & plan, Exceptions are as noted - HPI HPI: 08/06/19 20:06 The patient is a 74 year old male with a past medical history of COPD (3L at home), prior pneumonia requiring hospitalization, HTN, anemia, BPH, afib ( eliquis), and esophageal adenocarcinoma (stage 4 with mets to liver) here today for evaluation of shortness of breath and generalized weakness. The patient had a recent hospitalization for hypercapnic respiratory failure and was discharged last Friday. Per the patient was generally weak and having some difficulty ambulating, patient had declined rehab. However over the past week the patient had developed worsening shortness of breath with some mild coughing that was worse yesterday, without associated fever, chills, chest pain , back pain, abdominal pain, leg swelling, nausea, vomiting. Allergies: NKA PCP: Piyush Cordoba - Physicial Exam PE: 08/06/19 20:42 GENERAL: The patient is awake, alert, and fully oriented, Nontoxic - in no acute distress. Cachectic appearing HEAD: Normocephalic, atraumatic. EYES: extraocular movements intact, sclera anicteric, conjunctiva clear. ENT: Normal voice, Moist mucous membranes. LUNGS: Distant breath sounds, no acute respiratory distress HEART: Irregular ABDOMEN: Soft, nontender, No guarding, no rebound. No CVA tenderness EXTREMITIES: Normal range of motion, no edema. NEUROLOGICAL: No facial assymetry, Normal speech, moving all 4 extremities spontaneously and symmetrically - Medical Decision Making 08/06/19 20:02 The patient's shortness of breath may be secondary to his COPD we will treat the patient with prednisone, DuoNeb Obtain a chest x-ray to evaluate for acute pulmonary disease. The patient was also noted to be low but slow to respond this may be secondary to hypercapnea. The patient's generalized weakness has no focality to it suspect may be secondary to deconditioning from prolonged hospitalization. Will obtain an blood work, chest x-ray, EKG Will reassess 08/06/19 21:50 The patient's chest x-ray is negative for acute infiltrate The patient's blood work was reviewed is notable for mild leukocytosis Patient does not have any clinical signs to suggest pneumonia. The patient's blood gas noted for hypercapnia is likely because of his slow/ sluggish response. Will admit the patient for further management. Heart Score/ECG Review - ECG Impressions Comment:: 08/06/19 21:51 Twelve-lead EKG was performed and reviewed by me. There is normal sinus rhythm Rate of 55 Abnormal R wave progression
[2019-08-06 20:57] LABS: BASO % 0.1 % (0-2.0); HEMATOCRIT 35.6 % (35.4-49); HEMOGLOBIN 11.1 GM/dL (11.7-16.9); LYMPH % 1.9 % (8-40); MCH 26.6 pg (25.7-33.7); MCHC 31.2 g/dl (32.0-35.9); MEAN CELL VOLUME 85.3 fl (80-96); MEAN PLT VOLUME 8.1 fl (7.5-11.1); MONO % 4.2 % (3.8-10.2); NEUT % 93.8 % (42.8-82.8); PLATELET COUNT 193 K/MM3 (134-434); RBC 4.17 M/mm3 (4.00-5.60); RDW 20.4 % (11.9-15.9); WHITE BLOOD COUNT 14.7 K/mm3 (4.0-10.0)
[2019-08-06 20:58] LABS: VENOUS PH 7.36 (7.31-7.41); VENOUS PO2 59.6 mmHg (28-48)
[2019-08-06 20:59] LABS: VENOUS PC02 71.9 mmHg (38-52)
[2019-08-06 21:20] LABS: INR 0.97 (0.83-1.09); PROTHROMBIN TIME (PATIENT) 11.5 SEC (9.7-13.0)
[2019-08-06 21:22] LABS: ACTIVATED PTT 31.7 SECONDS (25.2-36.5)
[2019-08-06 21:24] LABS: ALBUMIN 2.7 g/dl (3.4-5.0); BILIRUBIN,TOTAL 0.6 mg/dL (0.2-1); BLOOD UREA NITROGEN 8.4 mg/dL (7-18); CALCIUM 8.4 mg/dL (8.5-10.1); CREATININE 0.3 mg/dL (0.55-1.3); N-TERMINAL BNP 302.1 pg/ml (5-450); POTASSIUM 4.3 mmol/L (3.5-5.1); TOT PROT 5.6 g/dl (6.4-8.2)
[2019-08-06 23:51] LABS: ANISOCYTOSIS 1+; MACROCYTOSIS 0; PLATELET ESTIMATE NORMAL
--- NOTE | 2019-08-07 08:16 | HP ---
Admitting History and Physical - Admission Chief Complaint: Acute exacerbation of labored breathing, confusion, cough, fatigue, and generalized muscle weakness. History of Present Illness: This 74 yr old w/m with hx of esophageal adenocarcinoma, COPD, rapid atrial fibrillation, and anxiety admitted via ER with acute respiratory failure with hypoxia and hypercapnia. History Source: Medical Record Limitations to Obtaining History: Clinical Condition - Past Medical History DEALMAKER: Yes: Dementia (mild to moderate) Cardiovascular: Yes: AFIB, HTN Pulmonary: Yes: Bronchitis, COPD, O2 Dependent, Pneumonia Gastrointestinal: Yes: Cancer (distal esophageal mass - adenoca) Hepatobiliary: No: Cirrhosis, Cholelithiasis, Cholecystitis, Choledocholithiasis , Hepatitis A, Hepatitis B, Hepatitis C, Other Heme/Onc: Yes: Anemia, Other (esophageal Carcinoma with mets) Infectious Disease: Yes: MRSA (hx) Psych: Yes: Anxiety, Panic Musculoskeletal: Yes: Osteoarthritis Rheumatology: No: Fibromyalgia, Gout, Lupus, Rheumatoid Arthritis, Sarcoidosis, Vasculitis, Other ENT: No: Allergic Rhinitis, Sinusitis, Other Endocrine: No: Allen's Disease, Jose M's Disease, Diabetes Insipidus, Diabetes Mellitus, Hyperparathyroidism, Hyperthyroidism, Hypothyroidism, Osteopenia, SIADH, Other Dermatology: Yes: Other (B/L feet scars/ scratches) - Past Surgical History Past Surgical History: Yes: Appendectomy, Hernia Repair, Permanent Pacemaker - Smoking History Smoking history: Former smoker Have you smoked in the past 12 months: No If you are a former smoker, when did you quit?: 1979 - Alcohol/Substance Use Hx Alcohol Use: No - Social History Usual Living Arrangement: Yes: With Spouse ADL: Support Services History of Recent Travel: No Home Medications - Allergies Allergies/Adverse Reactions: Allergies Allergy/AdvReac Type Severity Reaction Status Date / Time No Known Allergies Allergy Verified 04/25/19 10:06 - Home Medications Home Medications: Ambulatory Orders Alprazolam [Xanax] 1 mg PO QID 03/06/18 Albuterol 0.083% Nebulizer Verna [Ventolin 0.083% Nebulizer Soln -] 1 amp NEB Q4H PRN amp 12/29/18 Atenolol [Tenormin -] 25 mg PO DAILY 30 Days #30 tablet 12/29/18 Diltiazem Cd [Cardizem Cd -] 120 mg PO DAILY 30 Days #30 cap.cd.24h 06/18/19 Folic Acid - 1 mg PO DAILY 30 Days #30 tablet 06/18/19 Tamsulosin HCl [Flomax -] 0.8 mg PO DAILY@0830 30 Days #60 cap.er.24h 06/18/19 Albuterol 2.5/Ipratropium 0.5 [Duoneb -] 1 amp NEB QID 07/20/19 Acetaminophen [Tylenol .Regular Strength -] 650 mg PO Q4H PRN tablet 07/30/19 Albuterol 0.083% Nebulizer Verna [Ventolin 0.083% Nebulizer Soln -] 1 amp NEB Q4H PRN amp 07/30/19 Albuterol 2.5/Ipratropium 0.5 [Duoneb -] 1 amp NEB RQID amp 07/30/19 Alprazolam [Xanax] 1 mg PO QID PRN #28 tablet MDD 4mg 07/30/19 Atenolol [Tenormin -] 25 mg PO DAILY tablet 07/30/19 Diltiazem Cd [Cardizem Cd -] 120 mg PO DAILY cap.cd.24h 07/30/19 Folic Acid - 1 mg PO DAILY tablet 07/30/19 Polyethylene Glycol 3350 [Miralax 119 gm Btl -] 17 gm PO DAILY bottle 07/30/19 Tamsulosin HCl [Flomax -] 0.8 mg PO DAILY@0830 cap.er.24h 07/30/19 predniSONE [Deltasone -] 40 mg PO DAILY tablet 07/30/19 Review of Systems - Review of Systems Constitutional: reports: Weakness (generalized muscle weakness) Eyes: reports: No Symptoms HENT: reports: No Symptoms Neck: reports: No Symptoms Cardiovascular: reports: No Symptoms Respiratory: reports: Cough, SOB Gastrointestinal: reports: No Symptoms Genitourinary: reports: No Symptoms Breasts: reports: No Symptoms Reported Musculoskeletal: reports: Muscle Weakness Integumentary: reports: Other (dryness of skin) Neurological: reports: Unsteady Gait, Weakness Endocrine: reports: No Symptoms Hematology/Lymphatic: reports: No Symptoms Psychiatric: reports: Anxiety Physical Examination Vital Signs: Vital Signs Temperature 98.1 F 08/06/19 19:20 Pulse Rate 62 08/06/19 19:20 Respiratory Rate 18 08/06/19 19:20 Blood Pressure 118/59 L 08/06/19 19:20 O2 Sat by Pulse Oximetry (%) 99 08/06/19 19:20 Constitutional: Yes: Calm, Cachectic, Mild Distress Eyes: Yes: Conjunctiva Clear, EOM Intact HENT: Yes: Atraumatic, Normocephalic Neck: Yes: Supple, Trachea Midline Cardiovascular: Yes: Regular Rate and Rhythm Respiratory: Yes: Diminished, On Nasal O2, SOB Gastrointestinal: Yes: Normal Bowel Sounds, Soft ...Rectal Exam: Yes: Deferred Renal/: Yes: WNL Breast(s): Yes: WNL Musculoskeletal: Yes: Muscle Weakness Edema: No Peripheral Pulses WNL: Yes Peripheral Pulses: Left Radial: 2+, Right Radial: 2+, Left Doralis Pedis: 1+, Right Dorsalis Pedis: 1+, Left Femoral: 2+, Right Femoral: 2+ Integumentary: Yes: Other (dryness of skin) Neurological: Yes: Alert, Unsteady Gait, Weakness ...Motor Strength: LUE (generalized muscle weakness of all extremities) Psychiatric: Yes: Alert Labs: CBC, BMP 08/06/19 20:20 08/06/19 20:20 Imaging - Results Chest X-ray: Report Reviewed EKG: Report Reviewed Other: Report Reviewed (Lab data reviewed) Problem List - Problems (1) COPD exacerbation Code(s): J44.1 - CHRONIC OBSTRUCTIVE PULMONARY DISEASE W (ACUTE) EXACERBATION (2) Acute respiratory failure with hypoxia and hypercapnia Code(s): J96.01 - ACUTE RESPIRATORY FAILURE WITH HYPOXIA; J96.02 - ACUTE RESPIRATORY FAILURE WITH HYPERCAPNIA (3) Adenocarcinoma of esophagus, stage 4 Code(s): C15.9 - MALIGNANT NEOPLASM OF ESOPHAGUS, UNSPECIFIED (4) Anemia Code(s): D64.9 - ANEMIA, UNSPECIFIED (5) Atelectasis of both lungs Code(s): J98.11 - ATELECTASIS (6) Tachycardia Code(s): R00.0 - TACHYCARDIA, UNSPECIFIED Assessment/Plan Assessment/plan: acute respiratory failure with hypoxia and hypercapnia; IV fluids, bronchodilators, oxygen 3L/min via nasal cannula, consultation to Pulmonary, DVT prophylaxis, SCD'S.
[2019-08-07] MEDS ORDERED: ALBUTEROL SO4 2.5/IPRATROPIUM 0.5 INH SOL 3 ML VIAL.NEB. NEB PRN (08:35)
[2019-08-07] MEDS ORDERED: ALBUTEROL SO4 0.083% IH SOL 2.5 MG/3 ML VIAL.NEB. NEB PRN (08:38)
--- NOTE | 2019-08-07 09:49 | EKG ---
Test Reason : Blood Pressure : / mmHG Vent. Rate : 055 BPM Atrial Rate : 055 BPM P-R Int : 158 ms QRS Dur : 066 ms QT Int : 420 ms P-R-T Axes : 092 051 075 degrees QTc Int : 401 ms POOR DATA QUALITY, INTERPRETATION MAY BE ADVERSELY AFFECTED SINUS BRADYCARDIA ANTEROSEPTAL INFARCT (CITED ON OR BEFORE 15-APR-2018) ABNORMAL ECG WHEN COMPARED WITH ECG OF 20-JUL-2019 10:53, NO SIGNIFICANT CHANGE WAS FOUND Confirmed by MIREILLE BERRIOS, PRAKASH ([id number]) on 08/07/2019 9:49:13 AM Referred By: Confirmed By:PRAKASH KENDRICK MD
[2019-08-07] MEDS ORDERED: PT OWN MED DRAWER 7, Y5N ONE (11:26)
[2019-08-07] MEDS ORDERED: ATENOLOL 25 MG TABLET (FP) ONE (11:27)
[2019-08-07] MEDS ORDERED: FOLIC ACID 1 MG TABLET (FP) ONE (11:28)
[2019-08-07] MEDS ORDERED: TAMSULOSIN HCL 0.4 MG CAP ONE (11:28)
[2019-08-07] MEDS: D5-1/2NS+20 MEQ KCL - 20 MEQ/1,000 ML INFUS.BAG IV SCH (11:56)
[2019-08-07] MEDS: ATENOLOL 25 MG TABLET (FP) PO SCH (11:57)
[2019-08-07] MEDS: FOLIC ACID 1 MG TABLET (FP) PO SCH (11:57)
[2019-08-07] MEDS: TAMSULOSIN HCL 0.4 MG CAP PO SCH (11:57)
[2019-08-07 15:30] LABS: EPI CELLS 0.8 /HPF (0-5/HPF); HYALINE CASTS 10 /lpf (0-8); PH,URINE 7.5 (5.0-8.0); URINE APPEARANCE CLEAR; URINE BACTERIA 0.7 /hpf (NEGATIVE); URINE BILIRUBIN NEGATIVE (NEGATIVE); URINE COLOR YELLOW; URINE GLUCOSE (UA) NEGATIVE (NEGATIVE); URINE KETONE NEGATIVE (NEGATIVE); URINE LEUK ESTERASE TRACE (NEGATIVE); URINE NITRITE NEGATIVE (NEGATIVE); URINE PROTEIN NEGATIVE (NEGATIVE); URINE WBC 30 /hpf (0-5)
[2019-08-07] MEDS: ALBUTEROL SO4 2.5/IPRATROPIUM 0.5 INH SOL 3 ML VIAL.NEB. NEB SCH ×2 (16:00→20:15)
[2019-08-08 07:37] LABS: CALCIUM 8.5 mg/dL (8.5-10.1); CREATININE 0.2 mg/dL (0.55-1.3)
[2019-08-08 07:46] LABS: EOS % 0.1 % (0-4.5); HEMATOCRIT 33.7 % (35.4-49); HEMOGLOBIN 10.7 GM/dL (11.7-16.9); LYMPH % 3.7 % (8-40); MCH 26.9 pg (25.7-33.7); MCHC 31.8 g/dl (32.0-35.9); MEAN CELL VOLUME 84.6 fl (80-96); MEAN PLT VOLUME 8.3 fl (7.5-11.1); MONO % 5.4 % (3.8-10.2); NEUT % 90.8 % (42.8-82.8); PLATELET COUNT 166 K/MM3 (134-434); RBC 3.98 M/mm3 (4.00-5.60); RDW 20.6 % (11.9-15.9); WHITE BLOOD COUNT 16.9 K/mm3 (4.0-10.0)
[2019-08-08] MEDS: ALBUTEROL SO4 2.5/IPRATROPIUM 0.5 INH SOL 3 ML VIAL.NEB. NEB SCH ×4 (08:22→20:23)
[2019-08-08] MEDS: TAMSULOSIN HCL 0.4 MG CAP PO SCH (08:49)
[2019-08-08] MEDS: ALPRAZolam 1 MG TABLET PO PRN ×2 (08:49→15:50)
[2019-08-08] MEDS: FOLIC ACID 1 MG TABLET (FP) PO SCH (09:01)
[2019-08-08] MEDS: ATENOLOL 25 MG TABLET (FP) PO SCH (09:01)
[2019-08-08 11:16] LABS: ANISOCYTOSIS 1+; MACROCYTOSIS 0; PLATELET ESTIMATE NORMAL
--- NOTE | 2019-08-08 12:50 | CON.PULM ---
Consult Consult Specialty:: PULMONARY Referred by:: MARA Reason for Consultation:: SOB/CONFUSION - History of Present Illness History of Present Illness: Mr. Figueroa is a 74 y/o man w/hx COPD, afib on eliquis, esophageal adenocardinoma p/w shortness of breath and confusion. He reports that around 1600, he became increasingly short of breath. His reports concern that he has been intermittently short of breath for the last 3 days, and during these periods of sob he becomes slow to respond with increased general weakness. He endorses sob, cough, fatigue, and generalized weakness, but denies any chest pain, confusion, fevers, chills, nausea, vomiting. She reports that he has had difficulty ambulating for the last 3 days secondary to generalized weakness. 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: Dementia (mild to moderate) Cardio/Vascular: Yes: AFIB, HTN Pulmonary: Yes: Bronchitis, COPD, O2 Dependent, Pneumonia Gastrointestinal: Yes: Cancer (distal esophageal mass - adenoca) Hepatobiliary: No: Cirrhosis, Cholelithiasis, Cholecystitis, Choledocholithiasis , Hepatitis A, Hepatitis B, Hepatitis C, Other Infectious Disease: Yes: MRSA (hx) Psych: Yes: Anxiety, Panic Musculoskeletal: Yes: Osteoarthritis Rheumatology: No: Fibromyalgia, Gout, Lupus, Rheumatoid Arthritis, Sarcoidosis, Vasculitis, Other ENT: No: Allergic Rhinitis, Sinusitis, Other Endocrine: No: [place]'s Disease, Jose M's Disease, Diabetes Insipidus, Diabetes Mellitus, Hyperparathyroidism, Hyperthyroidism, Hypothyroidism, Osteopenia, SIADH, Other Dermatology: Yes: Other (B/L feet scars/ scratches) - Past Surgical History Past Surgical History: Yes: Appendectomy, Hernia Repair, Permanent Pacemaker - Alcohol/Substance Use Hx Alcohol Use: No - Smoking History Smoking history: Former smoker Have you smoked in the past 12 months: No If you are a former smoker, when did you quit?: 1979 - Social History ADL: Support Services History of Recent Travel: No Home Medications - Allergies Allergies/Adverse Reactions: Allergies Allergy/AdvReac Type Severity Reaction Status Date / Time No Known Allergies Allergy Verified 04/25/19 10:06 - Home Medications Home Medications: Ambulatory Orders Alprazolam [Xanax] 1 mg PO QID 03/06/18 Albuterol 0.083% Nebulizer Verna [Ventolin 0.083% Nebulizer Soln -] 1 amp NEB Q4H PRN amp 12/29/18 Atenolol [Tenormin -] 25 mg PO DAILY 30 Days #30 tablet 12/29/18 Diltiazem Cd [Cardizem Cd -] 120 mg PO DAILY 30 Days #30 cap.cd.24h 06/18/19 Folic Acid - 1 mg PO DAILY 30 Days #30 tablet 06/18/19 Tamsulosin HCl [Flomax -] 0.8 mg PO DAILY@0830 30 Days #60 cap.er.24h 06/18/19 Albuterol 2.5/Ipratropium 0.5 [Duoneb -] 1 amp NEB QID 07/20/19 Acetaminophen [Tylenol .Regular Strength -] 650 mg PO Q4H PRN tablet 07/30/19 Albuterol 0.083% Nebulizer Verna [Ventolin 0.083% Nebulizer Soln -] 1 amp NEB Q4H PRN amp 07/30/19 Albuterol 2.5/Ipratropium 0.5 [Duoneb -] 1 amp NEB RQID amp 07/30/19 Alprazolam [Xanax] 1 mg PO QID PRN #28 tablet MDD 4mg 07/30/19 Atenolol [Tenormin -] 25 mg PO DAILY tablet 07/30/19 Diltiazem Cd [Cardizem Cd -] 120 mg PO DAILY cap.cd.24h 07/30/19 Folic Acid - 1 mg PO DAILY tablet 07/30/19 Polyethylene Glycol 3350 [Miralax 119 gm Btl -] 17 gm PO DAILY bottle 07/30/19 Tamsulosin HCl [Flomax -] 0.8 mg PO DAILY@0830 cap.er.24h 07/30/19 predniSONE [Deltasone -] 40 mg PO DAILY tablet 07/30/19 Family Medical History Family History: Unremarkable Review of Systems - Review of Systems Constitutional: reports: Loss of Appetite Eyes: denies: Double Vision HENT: denies: Ear Discharge Neck: denies: Lumps Cardiovascular: reports: Shortness of Breath. denies: Edema Respiratory: reports: Cough, Exercise Intolerance, Orthopnea, SOB, SOB on Exertion. denies: Hemoptysis Gastrointestinal: denies: Bloating Genitourinary: denies: Discharge Physical Exam Vital Sings: Vital Signs Temperature 98.4 F 08/08/19 05:12 Pulse Rate 78 08/08/19 10:00 Respiratory Rate 22 H 08/08/19 10:00 Blood Pressure 162/75 08/08/19 10:00 O2 Sat by Pulse Oximetry (%) 97 08/08/19 09:00 Constitutional: Yes: Anxious Eyes: Yes: EOM Intact HENT: Yes: Normocephalic Neck: Yes: Trachea Midline Cardiovascular: Yes: S1, S2 Respiratory: Yes: Cough, Rhonchi Gastrointestinal: Yes: Normal Bowel Sounds Edema: No Labs: CBC, BMP 08/08/19 06:23 08/08/19 06:23 Imaging - Results Chest X-ray: Report Reviewed, Image Reviewed Problem List - Problems (1) Acute bronchitis Code(s): J20.9 - ACUTE BRONCHITIS, UNSPECIFIED (2) Acute respiratory failure with hypoxia and hypercapnia Code(s): J96.01 - ACUTE RESPIRATORY FAILURE WITH HYPOXIA; J96.02 - ACUTE RESPIRATORY FAILURE WITH HYPERCAPNIA (3) COPD exacerbation Code(s): J44.1 - CHRONIC OBSTRUCTIVE PULMONARY DISEASE W (ACUTE) EXACERBATION (4) Adenocarcinoma of esophagus, stage 4 Code(s): C15.9 - MALIGNANT NEOPLASM OF ESOPHAGUS, UNSPECIFIED (5) Anemia Code(s): D64.9 - ANEMIA, UNSPECIFIED Assessment/Plan Acute on Chronic Hypoxic and Hypercapneic Respiratory Failure Acute COPD Exacerbation Atrial Fibrillation Metastatic Esophageal Cancer on Chemo HTN Anemia - IV medrol to taper - inhaled bronchodilators - O2 to keep SpO2 >90% - rate control - continue anticoagulation - BiPAP as needed will follow Nasir SHETTY MD
--- NOTE | 2019-08-08 13:10 | PN ---
Progress Note, Physician Chief Complaint: Patient seen and examined at the bedside. Feels less short of breath. Appetite fair, cough, fatigue, and generalized muscle weakness. History of Present Illness: This 74 yr old w/m with hx of esophageal ca, COPD, rapid atrial fibrillation, and anxiety admitted via ER with an acute respiratory failure with hypoxia and hypercapnia, - Current Medication List Current Medications: Active Medications Albuterol Sulfate (Ventolin 0.083% Nebulizer Soln -) 1 amp NEB Q4H PRN PRN Reason: SHORT OF BREATH/WHEEZING Albuterol/Ipratropium (Duoneb -) 1 amp NEB RQID [facility] Last Admin: 08/08/19 11:25 Dose: 1 amp Alprazolam (Xanax) 1 mg PO Q6H PRN PRN Reason: ANXIETY Last Admin: 08/08/19 08:49 Dose: 1 mg Atenolol (Tenormin -) 25 mg PO DAILY [facility] Last Admin: 08/08/19 09:01 Dose: 25 mg Diltiazem HCl (Cardizem Cd -) 120 mg PO DAILY [facility] Last Admin: 08/08/19 09:01 Dose: 120 mg Folic Acid (Folic Acid -) 1 mg PO DAILY [facility] Last Admin: 08/08/19 09:01 Dose: 1 mg Potassium Chloride/Dextrose/Sod Cl (D5-1/2ns+20 Meq Kcl -) 20 meq in 1,000 mls @ 42 mls/hr IV ASDIR [facility] Last Admin: 08/07/19 11:56 Dose: 42 mls/hr Tamsulosin HCl (Flomax -) 0.8 mg PO DAILY@0830 [facility] Last Admin: 08/08/19 08:49 Dose: 0.8 mg - Objective Vital Signs: Vital Signs Temperature 98.4 F 08/08/19 05:12 Pulse Rate 78 08/08/19 10:00 Respiratory Rate 22 H 08/08/19 10:00 Blood Pressure 162/75 08/08/19 10:00 O2 Sat by Pulse Oximetry (%) 97 08/08/19 09:00 Constitutional: Yes: Anxious, Other (mild dementia) Eyes: Yes: Conjunctiva Clear, EOM Intact HENT: Yes: Atraumatic, Normocephalic Neck: Yes: Supple, Trachea Midline Cardiovascular: Yes: Regular Rate and Rhythm Respiratory: Yes: Cough, Diminished, On Nasal O2, Poor Air Entry, SOB, SOB on Exertion Gastrointestinal: Yes: Normal Bowel Sounds, Soft, Other (esophageal ca) ...Rectal Exam: Yes: Deferred Genitourinary: Yes: WNL Breast(s): Yes: WNL Musculoskeletal: Yes: Muscle Weakness Extremities: Yes: Other (generalized muscle weakness) Edema: No Peripheral Pulses WNL: Yes Peripheral Pulses: Left Radial: 2+, Right Radial: 2+, Left Doralis Pedis: 2+, Right Dorsalis Pedis: 2+, Left Femoral: 2+, Right Femoral: 2+ Neurological: Yes: Alert, Weakness ...Motor Strength: LUE (generalized muscle weakness of all extremities) Psychiatric: Yes: Alert Labs: CBC, BMP 08/08/19 06:23 08/08/19 06:23 INR, PTT INR 0.97 (0.83-1.09) 08/06/19 20:20 - ....Imaging EKG: Report Reviewed Other: Report Reviewed (Lab data reviewed) Problem List - Problems (1) COPD exacerbation Code(s): J44.1 - CHRONIC OBSTRUCTIVE PULMONARY DISEASE W (ACUTE) EXACERBATION (2) Acute respiratory failure with hypoxia and hypercapnia Code(s): J96.01 - ACUTE RESPIRATORY FAILURE WITH HYPOXIA; J96.02 - ACUTE RESPIRATORY FAILURE WITH HYPERCAPNIA (3) Adenocarcinoma of esophagus, stage 4 Code(s): C15.9 - MALIGNANT NEOPLASM OF ESOPHAGUS, UNSPECIFIED (4) Anemia Code(s): D64.9 - ANEMIA, UNSPECIFIED (5) Atelectasis of both lungs Code(s): J98.11 - ATELECTASIS (6) Tachycardia Code(s): R00.0 - TACHYCARDIA, UNSPECIFIED (7) Acute bronchitis Code(s): J20.9 - ACUTE BRONCHITIS, UNSPECIFIED Assessment/Plan Assessment/plan: acute respiratory failure with hypoxia and hypercapnia, acute bronchitis, acute exacerbation of COPD, acute neutrophilic leukocytosis; IV fluids, bronchodilators, oral Prednisone, SCD'S, DVT prophylaxis, physical therapy, consult to ID, discussed clinical condition of the patient with his .
[2019-08-08] MEDS ORDERED: predniSONE 10 MG TABLET (UD) PO SCH (13:45)
[2019-08-08] MEDS ORDERED: AZITHROMYCIN 250 MG TABLET PO ONE (14:09)
[2019-08-08] MEDS ORDERED: predniSONE 20 MG TABLET (UD) ONE (14:10)
[2019-08-08] MEDS ORDERED: predniSONE 10 MG TABLET (UD) ONE (14:10)
--- NOTE | 2019-08-08 14:12 | PN ---
Progress Note (short form) - Note Progress Note: ID consult dictated imp/reccd acute COPD exacerbation with hypercapnia/hypoxia resp failure no signs pneumonia on cxray steroids/nebs per pulmonary add zithromax history of esophageal cancer Problem List - Problems (1) Acute respiratory failure with hypoxia and hypercapnia Code(s): J96.01 - ACUTE RESPIRATORY FAILURE WITH HYPOXIA; J96.02 - ACUTE RESPIRATORY FAILURE WITH HYPERCAPNIA (2) COPD exacerbation Code(s): J44.1 - CHRONIC OBSTRUCTIVE PULMONARY DISEASE W (ACUTE) EXACERBATION (3) Adenocarcinoma of esophagus, stage 4 Code(s): C15.9 - MALIGNANT NEOPLASM OF ESOPHAGUS, UNSPECIFIED
[2019-08-08] MEDS: predniSONE 20 MG, predniSONE 10 MG, predniSONE 5 MG PO SCH (14:52)
[2019-08-08] MEDS: D5-1/2NS+20 MEQ KCL - 20 MEQ/1,000 ML INFUS.BAG IV SCH (14:53)
--- NOTE | 2019-08-08 16:42 | CONS ---
DATE OF CONSULTATION: DATE OF DICTATION: 08/08/2019 REQUESTED BY: Georgina Michelle MD This is a 74-year-old man who was recently hospitalized in June for a COPD exacerbation. He now returns with progressive weakness and shortness of breath over the last 3 days. There is no history of any travel or sick contacts. He has had no hemoptysis, he has had no fevers or chills. He is not sure what his baseline, how much prednisone he is taking. He does report he was on a taper from his last hospitalization. He denies any nausea or vomiting. He reports an episode of diarrhea this morning. He has had an influenza vaccine. Past medical history is notable for a history of dementia, atrial fibrillation, hypertension, bronchitis, COPD. He is oxygen dependent at home, 3 L. He has had pneumonia in the past. He has nares colonization with MRSA. He has had esophageal cancer, a history of anxiety, osteoarthritis. Surgical history is notable for appendectomy, hernia repair, and permanent pacemaker. SOCIAL HISTORY: He stopped smoking many years ago. He lives at home with his . There is no history of any travel. He has no known drug allergies. It is not clear how much prednisone he was taking at home. He is also tamsulosin, folic acid, diltiazem, atenolol, alprazolam, albuterol, DuoNeb solution for the nebulizer, and apparently on MiraLax. PHYSICAL EXAMINATION: General: He is awake and alert. Vital Signs: Temperature is 98.4. He was admitted on the night of the and he has had no fever since admission. Pulse of 78. Blood pressure 162/75. Respiratory rate is 20. He is saturating 97% on 3 L. HEENT: Normocephalic. His eyes are anicteric. He has no thrush. Lungs: Diminished breath sounds at the bases. Heart: Regular rate and rhythm. Abdomen: Soft, nontender. Extremities: He has trace edema. Labs are notable for a white count of 16.9, hemoglobin 10.7, platelets 166, BUN 10, creatinine 0.2. Chest x-ray reveals markings unchanged from prior x-rays. In summary, this is a 74-year-old man with [id number] hypoxemic hypercapnic respiratory failure. On admission, his ABG showed a pCO2 of 71. He is currently on steroids and nebulizer treatment, to be continued. He is on anticoagulation for his atrial fibrillation. Would suggest we add some Zithromax for his acute exacerbation of COPD. On his last admission, he was treated with ceftriaxone. He does not appear to have a focal infiltrate on x-ray. I suspect this is all more bronchitis/COPD exacerbation. history of stage 4 esophageal cancer- f/u per PMD Rivera RICHARDS/[id number] [facility]
[2019-08-09] MEDS ORDERED: levETIRAcetam 500 MG/5 ML INJECTION VIAL IVPB ONE ×3 (00:06→11:00)
--- NOTE | 2019-08-09 00:14 | PN ---
Progress Note (short form) - Note Progress Note: I was paged about new onset twiching in pt witnessed by the nurse. When I arrived to assess the patient, i did notice the twitching then later pt appeared to seize for about 15 seconds. VS rectal temp 99.1F PE: pt felt warm to touch, pt [id number] ( at baseline per nurse) Lung: CTAB but reduced in the lower field more so on left abdomen: NTND, +BS Extremities : pressure ulcers on heels; healing, erythematous but w/o discharge noted or foul smell Back: sacral ulcer also erythematous but w/o discharger or foul smell, clean base Plan: I will give pt his xanax at a dose of 0.5mg , keppra load of a 1000 for seizure activity I will send out UA, Urine, blood culture, CXR to assess for possible infectious source as WBC count increased from 2 days ago with left shift pt on zithromax, will consider adding rocephin based on lab and imaging findings
[2019-08-09] MEDS ORDERED: LORazepam 2 MG/ML SDV VIAL IVPUSH ONE ×2 (00:42→07:57)
--- NOTE | 2019-08-09 07:53 | RAPID ---
Physical Examination Vital Signs: Vital Signs Temperature 97.8 F 08/09/19 07:15 Pulse Rate 80 08/09/19 07:15 Respiratory Rate 20 08/09/19 07:15 Blood Pressure 142/56 L 08/09/19 07:15 O2 Sat by Pulse Oximetry (%) 95 08/08/19 21:00 Findings/Remarks: Rapid Response called for patient with repetitive tremors of the head. Responding to commands and questions Constitutional: Yes: Moderate Distress Eyes: Yes: EOM Intact HENT: Yes: Atraumatic, Normocephalic Neck: Yes: Supple Cardiovascular: Yes: Regular Rate and Rhythm, Tachycardia. No: Bradycardia Respiratory: Yes: Regular, CTA Bilaterally Gastrointestinal: Yes: Soft. No: Ascites Extremities: No: Calf Tenderness Neurological: Yes: Oriented (A&Ox3. Answer questions appropriately), Weakness ( weakness of RUE(natural science manager, shoulder), RLE(dorsiflexion, plantarflexion)), Other (neck : repetitive motion of neck flexion/extension drifting to right-side) ...Motor Strength: RUE (diminised natural science manager), RLE Labs: CBC, BMP 08/08/19 06:23 08/08/19 06:23 Rapid Response - Rapid Response Assessment: Possibly seizure Outcome: - ordered Ativan 0.5mg IVP - ordered Keppra 500mg IVPB - placed BiPAP - ordered ABG - CXR reviewed - Neurology(Nolan) contacted - Primary team contacted for sign out Primary Physician Notified: Bozena Schuler
[2019-08-09] MEDS ORDERED: LORazepam 2 MG/ML SDV VIAL ONE (07:59)
[2019-08-09] MEDS: D5-1/2NS+20 MEQ KCL - 20 MEQ/1,000 ML INFUS.BAG IV SCH (08:02)
[2019-08-09 08:05] LABS: ARTERIAL BLD GAS O2 SATURATION 99.4 % (95-98); ARTERIAL BLOOD GAS BASE EXCESS 7.7 meq/l (-2-2); ARTERIAL BLOOD GAS PCO2 60.6 mmHg (35-45); ARTERIAL BLOOD GAS PO2 218 mmHg (80-100); ARTERIAL BLOOD GAS pH 7.37 (7.35-7.45)
[2019-08-09 08:07] LABS: ALLENS TEST POSITIVE
[2019-08-09 08:21] LABS: BASO % 0.2 % (0-2.0); HEMATOCRIT 37.5 % (35.4-49); HEMOGLOBIN 12.1 GM/dL (11.7-16.9); MCH 27.1 pg (25.7-33.7); MCHC 32.3 g/dl (32.0-35.9); MEAN PLT VOLUME 8.2 fl (7.5-11.1); MONO % 5.7 % (3.8-10.2); NEUT % 90.1 % (42.8-82.8); PLATELET COUNT 172 K/MM3 (134-434); RBC 4.47 M/mm3 (4.00-5.60); RDW 20.5 % (11.9-15.9); WHITE BLOOD COUNT 18.9 K/mm3 (4.0-10.0)
[2019-08-09] MEDS: ALBUTEROL SO4 2.5/IPRATROPIUM 0.5 INH SOL 3 ML VIAL.NEB. NEB SCH ×3 (08:30→16:15)
[2019-08-09] MEDS: TAMSULOSIN HCL 0.4 MG CAP PO SCH (09:19)
--- NOTE | 2019-08-09 09:32 | CON.NEURO ---
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: Dementia (mild to moderate) Cardio/Vascular: Yes: AFIB, HTN Pulmonary: Yes: Bronchitis, COPD, O2 Dependent, Pneumonia Gastrointestinal: Yes: Cancer (distal esophageal mass - adenoca) Hepatobiliary: No: Cirrhosis, Cholelithiasis, Cholecystitis, Choledocholithiasis , Hepatitis A, Hepatitis B, Hepatitis C, Other Infectious Disease: Yes: MRSA (hx) Psych: Yes: Anxiety, Panic Musculoskeletal: Yes: Osteoarthritis Rheumatology: No: Fibromyalgia, Gout, Lupus, Rheumatoid Arthritis, Sarcoidosis, Vasculitis, Other ENT: No: Allergic Rhinitis, Sinusitis, Other Endocrine: No: Rockwall's Disease, Reva's Disease, Diabetes Insipidus, Diabetes Mellitus, Hyperparathyroidism, Hyperthyroidism, Hypothyroidism, Osteopenia, SIADH, Other Dermatology: Yes: Other (B/L feet scars/ scratches) - Past Surgical History Past Surgical History: Yes: Appendectomy, Hernia Repair, Permanent Pacemaker - Alcohol/Substance Use Hx Alcohol Use: No - Smoking History Smoking history: Former smoker Have you smoked in the past 12 months: No If you are a former smoker, when did you quit?: 1979 - Social History ADL: Support Services History of Recent Travel: No Home Medications - Allergies Allergies/Adverse Reactions: Allergies Allergy/AdvReac Type Severity Reaction Status Date / Time No Known Allergies Allergy Verified 04/25/19 10:06 - Home Medications Home Medications: Ambulatory Orders Alprazolam [Xanax] 1 mg PO QID 03/06/18 Albuterol 0.083% Nebulizer Verna [Ventolin 0.083% Nebulizer Soln -] 1 amp NEB Q4H PRN amp 12/29/18 Atenolol [Tenormin -] 25 mg PO DAILY 30 Days #30 tablet 12/29/18 Diltiazem Cd [Cardizem Cd -] 120 mg PO DAILY 30 Days #30 cap.cd.24h 06/18/19 Folic Acid - 1 mg PO DAILY 30 Days #30 tablet 06/18/19 Tamsulosin HCl [Flomax -] 0.8 mg PO DAILY@0830 30 Days #60 cap.er.24h 06/18/19 Albuterol 2.5/Ipratropium 0.5 [Duoneb -] 1 amp NEB QID 07/20/19 Acetaminophen [Tylenol .Regular Strength -] 650 mg PO Q4H PRN tablet 07/30/19 Albuterol 0.083% Nebulizer Verna [Ventolin 0.083% Nebulizer Soln -] 1 amp NEB Q4H PRN amp 07/30/19 Albuterol 2.5/Ipratropium 0.5 [Duoneb -] 1 amp NEB RQID amp 07/30/19 Alprazolam [Xanax] 1 mg PO QID PRN #28 tablet MDD 4mg 07/30/19 Atenolol [Tenormin -] 25 mg PO DAILY tablet 07/30/19 Diltiazem Cd [Cardizem Cd -] 120 mg PO DAILY cap.cd.24h 07/30/19 Folic Acid - 1 mg PO DAILY tablet 07/30/19 Polyethylene Glycol 3350 [Miralax 119 gm Btl -] 17 gm PO DAILY bottle 07/30/19 Tamsulosin HCl [Flomax -] 0.8 mg PO DAILY@0830 cap.er.24h 07/30/19 predniSONE [Deltasone -] 40 mg PO DAILY tablet 07/30/19 Physical Exam-Neuro Vital Signs: Vital Signs Temperature 97.8 F 08/09/19 07:15 Pulse Rate 80 08/09/19 07:15 Respiratory Rate 20 08/09/19 07:15 Blood Pressure 142/56 L 08/09/19 07:15 O2 Sat by Pulse Oximetry (%) 100 08/09/19 08:31 Labs: CBC, BMP 08/09/19 07:25 INR, PTT INR 0.97 (0.83-1.09) 08/06/19 20:20 Assessment/Plan cc Recurrent right sided focal seizure HPI 74 year old male history of esophageal cancer, COPD, atrial fibrillation. He was admitted for acute respiratory failure with hyoxia, and hypercapnia. Patient has right sided focal seizure. He do not have known mets or stroke in past. Patient is on non rebeather. He would respond in between his seizure. There is no high grade fever and he has high wbc . PMH Past Surgical History: Yes: Appendectomy, Hernia Repair, Permanent Pacemaker Allergies/Adverse Reactions: Allergies Allergy/AdvReac Type Severity Reaction Status Date / Time No Known Allergies Allergy Verified 04/25/19 10:06 Home Medications: Alprazolam [Xanax] 1 mg PO QID 03/06/18 Albuterol 0.083% Nebulizer Verna [Ventolin 0.083% Nebulizer Soln -] 1 amp NEB Q4H PRN amp 12/29/18 Atenolol [Tenormin -] 25 mg PO DAILY 30 Days #30 tablet 12/29/18 Diltiazem Cd [Cardizem Cd -] 120 mg PO DAILY 30 Days #30 cap.cd.24h 06/18/19 Folic Acid - 1 mg PO DAILY 30 Days #30 tablet 06/18/19 Tamsulosin HCl [Flomax -] 0.8 mg PO DAILY@0830 30 Days #60 cap.er.24h 06/18/19 Albuterol 2.5/Ipratropium 0.5 [Duoneb -] 1 amp NEB QID 07/20/19 Acetaminophen [Tylenol .Regular Strength -] 650 mg PO Q4H PRN tablet 07/30/19 Albuterol 0.083% Nebulizer Verna [Ventolin 0.083% Nebulizer Soln -] 1 amp NEB Q4H PRN amp 07/30/19 Albuterol 2.5/Ipratropium 0.5 [Duoneb -] 1 amp NEB RQID amp 07/30/19 Alprazolam [Xanax] 1 mg PO QID PRN #28 tablet MDD 4mg 07/30/19 Atenolol [Tenormin -] 25 mg PO DAILY tablet 07/30/19 Diltiazem Cd [Cardizem Cd -] 120 mg PO DAILY cap.cd.24h 07/30/19 Folic Acid - 1 mg PO DAILY tablet 07/30/19 Polyethylene Glycol 3350 [Miralax 119 gm Btl -] 17 gm PO DAILY bottle 07/30/19 Tamsulosin HCl [Flomax -] 0.8 mg PO DAILY@0830 cap.er.24h 07/30/19 predniSONE [Deltasone -] 40 mg PO DAILY tablet 07/30/19 ROS,FH,SH reviewed in chart NEUROLOGICAL EXAMINATION drowsy and having right sided arm and face focal seizure in between episode , he would repsond and try to remove his face mask moving all extremity, there is no neck stiffnes vss , neck is supple CT head and electrolyte are pending Assessement /Plan right sided recurrent focal seizure, related to stroke or mets to brain Plan: stat ct head and eeg - if seizure are not controlled by keppra, add phsphenytoin 1 gm iv once and 100 mg iv dilantin tid - follow up on electrolyte - consider icu care, if he continue seizure , he might need intubation - ativan 1 mg prn - spoke to hospitalist Thanking you so much Luis Angel Francisco MD
--- NOTE | 2019-08-09 09:53 | PN ---
Progress Note, Physician Chief Complaint: Acute respiratory failure with hypoxia and hypercapnia, acute onset of right recurrent focal seizures, oxygen saturation dropped to 79% on 3L/min via nasal cannula, started on BiPap, oxygen sat is 100%. Pressure ulcers of sacrum and heels. History of Present Illness: This 74 yr old w/m with hx of esophageal ca stage 4, COPD, rapid atrial fibrillation, hypertension, and dementia admitted via ER with an acute exacerbation of COPD and an acute respiratory failure with hypoxia and hypercapnia. - Current Medication List Current Medications: Active Medications Albuterol Sulfate (Ventolin 0.083% Nebulizer Soln -) 1 amp NEB Q4H PRN PRN Reason: SHORT OF BREATH/WHEEZING Albuterol/Ipratropium (Duoneb -) 1 amp NEB RQID [facility] Last Admin: 08/09/19 08:30 Dose: 1 amp Alprazolam (Xanax) 1 mg PO Q6H PRN PRN Reason: ANXIETY Last Admin: 08/08/19 15:50 Dose: 1 mg Atenolol (Tenormin -) 25 mg PO DAILY [facility] Last Admin: 08/08/19 09:01 Dose: 25 mg Azithromycin (Zithromax -) 250 mg PO DAILY [facility] Diltiazem HCl (Cardizem Cd -) 120 mg PO DAILY [facility] Last Admin: 08/08/19 09:01 Dose: 120 mg Folic Acid (Folic Acid -) 1 mg PO DAILY [facility] Last Admin: 08/08/19 09:01 Dose: 1 mg Potassium Chloride/Dextrose/Sod Cl (D5-1/2ns+20 Meq Kcl -) 20 meq in 1,000 mls @ 42 mls/hr IV ASDIR [facility] Last Admin: 08/08/19 14:53 Dose: 42 mls/hr Prednisone 20 mg/ Prednisone (10 mg/ Prednisone 5 mg) 35 mg PO DAILY [facility] Last Admin: 08/08/19 14:52 Dose: 35 mg Tamsulosin HCl (Flomax -) 0.8 mg PO DAILY@0830 [facility] Last Admin: 08/09/19 09:19 Dose: Not Given - Objective Vital Signs: Vital Signs Temperature 97.8 F 08/09/19 08:00 Pulse Rate 115 H 08/09/19 09:41 Respiratory Rate 20 08/09/19 09:41 Blood Pressure 135/102 H 08/09/19 09:41 O2 Sat by Pulse Oximetry (%) 100 08/09/19 08:31 Constitutional: Yes: Cachectic, Severe Distress Eyes: Yes: Conjunctiva Clear, EOM Intact HENT: Yes: Atraumatic, Normocephalic Neck: Yes: Supple, Trachea Midline Cardiovascular: Yes: Regular Rate and Rhythm, Other (permanent pacemaker) Respiratory: Yes: Cough, Diminished, On BiPap, Poor Air Entry, SOB, SOB on Exertion, Tachypnea Gastrointestinal: Yes: Normal Bowel Sounds, Soft ...Rectal Exam: Yes: Deferred Genitourinary: Yes: WNL Breast(s): Yes: WNL Musculoskeletal: Yes: Muscle Weakness Extremities: Yes: Cool Edema: No Peripheral Pulses WNL: Yes Peripheral Pulses: Left Radial: 2+, Right Radial: 2+, Left Doralis Pedis: 1+, Right Dorsalis Pedis: 1+, Left Femoral: 2+, Right Femoral: 2+ Integumentary: Yes: Pressure Ulcer (sacrum and heels) Wound/Incision: Yes: Open to air Neurological: Yes: Unsteady Gait, Weakness ...Motor Strength: LUE (generalized muscle weakness) Psychiatric: Yes: Alert Labs: CBC, BMP 08/09/19 07:25 INR, PTT INR 0.97 (0.83-1.09) 08/06/19 20:20 - ....Imaging Chest X-ray: Report Reviewed Other: Report Reviewed (Lab data reviewed) Problem List - Problems (1) COPD exacerbation Code(s): J44.1 - CHRONIC OBSTRUCTIVE PULMONARY DISEASE W (ACUTE) EXACERBATION (2) Acute respiratory failure with hypoxia and hypercapnia Code(s): J96.01 - ACUTE RESPIRATORY FAILURE WITH HYPOXIA; J96.02 - ACUTE RESPIRATORY FAILURE WITH HYPERCAPNIA (3) Adenocarcinoma of esophagus, stage 4 Code(s): C15.9 - MALIGNANT NEOPLASM OF ESOPHAGUS, UNSPECIFIED (4) Anemia Code(s): D64.9 - ANEMIA, UNSPECIFIED (5) Atelectasis of both lungs Code(s): J98.11 - ATELECTASIS (6) Tachycardia Code(s): R00.0 - TACHYCARDIA, UNSPECIFIED (7) Acute bronchitis Code(s): J20.9 - ACUTE BRONCHITIS, UNSPECIFIED (8) Focal motor seizure Code(s): G40.109 - LOCAL-REL SYMPTC EPI W SIMP PRT SEIZ,NOT NTRCT, W/O STAT EPI Assessment/Plan Assessment/plan: acute respiratory failure with hypoxia and hypercapnia, acute recurrent focal seizure, acute progressive neutrophilic leukocytosis, esophageal ca stage 4 most probably with mets to the brain; IV fluids, IV Keppra , IV Dilantin if medically necessary, on BiPap 50% oxygen with oxygen sat 100%, consult to Neurologist, spoke with ID re rising leukocytosis, ct scan of the brain without contrast, EEG.
[2019-08-09 09:57] LABS: ALBUMIN 2.9 g/dl (3.4-5.0); BILIRUBIN,TOTAL 0.8 mg/dL (0.2-1); BLOOD UREA NITROGEN 9.9 mg/dL (7-18); CALCIUM 8.4 mg/dL (8.5-10.1); CREATININE 0.4 mg/dL (0.55-1.3); POTASSIUM 4.3 mmol/L (3.5-5.1)
[2019-08-09] MEDS ORDERED: AZITHROMYCIN 250 MG TABLET PO SCH (10:00)
[2019-08-09] MEDS ORDERED: PHENYTOIN SODIUM 250 MG/5 ML VIAL IVPB SCH (10:42)
[2019-08-09] MEDS ORDERED: PHENYTOIN SODIUM 100 MG/2 ML VIAL IVPB ONE (10:42)
[2019-08-09] MEDS ORDERED: levETIRAcetam 500 MG/5 ML INJECTION VIAL IVPB SCH ×2 (10:45→20:00)
--- NOTE | 2019-08-09 10:47 | PN ---
Progress Note (short form) - Note Progress Note: PULMONARY Events overnight noted. Acute desaturation and partial seizures overnight. Vital Signs Period Temp Pulse Resp BP Sys/Cleaning Pulse Ox Last 24 Hr 97.8 F-99.1 F 62-123 20-21 121-159/56-114 94-100 Gen: mildly tachypneic on NRB Heart: irregular Lung: scattered rhonchi Abd: soft, nontender Ext: no edema CBC, BMP 08/09/19 07:25 08/09/19 07:25 Active Medications Albuterol Sulfate (Ventolin 0.083% Nebulizer Soln -) 1 amp NEB Q4H PRN PRN Reason: SHORT OF BREATH/WHEEZING Albuterol/Ipratropium (Duoneb -) 1 amp NEB RQID [facility] Last Admin: 08/09/19 08:30 Dose: 1 amp Alprazolam (Xanax) 1 mg PO Q6H PRN PRN Reason: ANXIETY Last Admin: 08/08/19 15:50 Dose: 1 mg Atenolol (Tenormin -) 25 mg PO DAILY [facility] Last Admin: 08/08/19 09:01 Dose: 25 mg Azithromycin (Zithromax -) 250 mg PO DAILY [facility] Diltiazem HCl (Cardizem Cd -) 120 mg PO DAILY [facility] Last Admin: 08/08/19 09:01 Dose: 120 mg Folic Acid (Folic Acid -) 1 mg PO DAILY [facility] Last Admin: 08/08/19 09:01 Dose: 1 mg Potassium Chloride/Dextrose/Sod Cl (D5-1/2ns+20 Meq Kcl -) 20 meq in 1,000 mls @ 42 mls/hr IV ASDIR [facility] Last Admin: 08/08/19 14:53 Dose: 42 mls/hr Levetiracetam (Keppra Injection -) 500 mg IVPB Q8H [facility] Phenytoin Sodium (Dilantin Injection -) 1,000 mg IVPB ONCE ONE Stop: 08/09/19 10:43 Prednisone 20 mg/ Prednisone (10 mg/ Prednisone 5 mg) 35 mg PO DAILY [facility] Last Admin: 08/08/19 14:52 Dose: 35 mg Tamsulosin HCl (Flomax -) 0.8 mg PO DAILY@0830 [facility] Last Admin: 08/09/19 09:19 Dose: Not Given A/P Acute on Chronic Hypoxic and Hypercapneic Respiratory Failure Acute COPD Exacerbation Seizures Atrial Fibrillation with RVR Stage 4 Esophageal Ca - antiepileptics - CT head - will change steroids to IV - O2 to keep SpO2 >90% - BiPAP as needed - rate control - may need monitored setting if seizures persist
[2019-08-09 11:06] LABS: PHOSPHOROUS 3.1 mg/dL (2.5-4.9)
[2019-08-09] MEDS: predniSONE 20 MG, predniSONE 10 MG, predniSONE 5 MG PO SCH (11:11)
[2019-08-09] MEDS: ATENOLOL 25 MG TABLET (FP) PO SCH (11:11)
[2019-08-09] MEDS: FOLIC ACID 1 MG TABLET (FP) PO SCH (11:11)
[2019-08-09] MEDS ORDERED: methylPREDNISolone NA SUCC 40 MG/1 ML VIAL IVPB SCH (13:30)
[2019-08-09] MEDS ORDERED: dilTIAZem HCL 50 MG/10 ML - 10 ML VIAL IVPUSH PRN ×2 (13:34→13:37)
[2019-08-09] MEDS ORDERED: METOPROLOL TARTRATE 5 MG/5 ML VIAL IVPUSH PRN (13:39)
[2019-08-09] MEDS ORDERED: AZITHROMYCIN IVPB 250 MG in DEXTROSE 5%-WATER - 250 ML IVPB SCH (14:00)
[2019-08-09] MEDS ORDERED: LORazepam 2 MG/ML SDV VIAL IVPUSH PRN (14:39)
--- NOTE | 2019-08-09 14:44 | PN ---
Physical Exam: Consult Specialty: Critical Care Referred by: Dr. Still Reason for Consultation:: Status Epilepticus HPI: 74 M PMH COPD (home O2 of 3L), HTN, dementia, OA, anxiety, afib on eliquis , esophageal adenocarcinoma who presented with shortness of breath and confusion. He was becoming increasingly short of breath at home and was recently discharged from the hospital on 07/30/18. He was short of breath for the last 3 days and he had increased lethargy. He complained of SOB, cough, fatigue and generalized weakness. On 08/09/18 at midnight patient had a rapid response called overnight for twitching. Patient was given home dose of xanax, and given keppra loading dose. On 08/09/18 747 AM a rapid response was called again for patient. Patient was noted to have right upper extremity focal seizures. Patient was given keppra 500 mg, dilantin, and ativan through the course of the day. As per his nurse patient has continued to have intermittent focal seizure activity in the right side of his body. Patient remains alert and responsive to name throughout these episodes. Patient was placed on BiPAP as needed on admission, and has continued to need nonrebreather mask. He denies any chest pain, headache, abdominal pain, nausea, vomiting, diarrhea. OBJECTIVE: Vital Signs Period Temp Pulse Resp BP Sys/Cleaning Pulse Ox Last 24 Hr 97.8 F-99.1 F 62-123 20-21 121-159/56-114 94-100 GENERAL: The patient is awake, alert to self. HEAD: Normal with no signs of trauma. Patient had non re-breather mask on. NECK: Trachea midline, full range of motion, supple. LUNGS: Coarse breath sounds bilaterally. HEART: Tachycardic, s1, s2 present. No murmurs, rubs or gallops ABDOMEN: Soft, nontender, nondistended. EXTREMITIES: 2+ pulses, warm, well-perfused, no edema. NEUROLOGICAL: Cranial nerves II through XII grossly intact. Patient is not able to move RLE to command. Unable to move RUE to command. 4/5 rig site engineer strength on RUE. Left upper and lower extremity have full ROM and 5/5/ strength. Laboratory Results - last 24 hr 08/08/19 08/09/19 08/09/19 06:23 07:25 07:25 WBC 18.9 H Corrected WBC (auto) 14.20 RBC 4.47 Hgb 12.1 Hct 37.5 MCV 84.0 MCH 27.1 MCHC 32.3 RDW 20.5 H Plt Count 172 MPV 8.2 Absolute Neuts (auto) 17.0 H Neutrophils % 90.1 H Lymphocytes % 4.0 L Monocytes % 5.7 Eosinophils % 0.0 D Basophils % 0.2 D Nucleated RBC % 0 Hypochromia 0 Platelet Estimate Normal Polychromasia 1+ Poikilocytosis 0 Anisocytosis 1+ Microcytosis 1+ Macrocytosis 0 Anticoagulation Therapy Puncture Site ABG pH ABG pCO2 at Pt Temp ABG pO2 at Pt Temp ABG HCO3 ABG O2 Sat (Measured) ABG O2 Content ABG Base Excess Tiago Test O2 Delivery Device Oxygen Flow Rate Vent Mode Vent Rate Mechanical Rate Pressure Support Vent Sodium 137 Potassium 4.3 Chloride 98 Carbon Dioxide 34 H Anion Gap 5 L BUN 9.9 Creatinine 0.4 L Est GFR (CKD-EPI)AfAm 133.72 Est GFR (CKD-EPI)NonAf 115.37 Random Glucose 104 Calcium 8.4 L Phosphorus 3.1 Magnesium 2.0 Total Bilirubin 0.8 AST 48 H ALT 18 Alkaline Phosphatase 82 Total Protein 6.0 L Albumin 2.9 L 08/09/19 07:55 WBC Corrected WBC (auto) RBC Hgb Hct MCV MCH MCHC RDW Plt Count MPV Absolute Neuts (auto) Neutrophils % Lymphocytes % Monocytes % Eosinophils % Basophils % Nucleated RBC % Hypochromia Platelet Estimate Polychromasia Poikilocytosis Anisocytosis Microcytosis Macrocytosis Anticoagulation Therapy No Result Required. Puncture Site Right radial ABG pH 7.37 ABG pCO2 at Pt Temp 60.6 H ABG pO2 at Pt Temp 218 H ABG HCO3 34.4 H ABG O2 Sat (Measured) 99.4 H ABG O2 Content 17.5 ABG Base Excess 7.7 H Tiago Test Positive O2 Delivery Device No Result Required. Oxygen Flow Rate No Vent Mode No Result Required. Vent Rate No Result Required. Mechanical Rate No Result Required. Pressure Support Vent No Result Required. Sodium Potassium Chloride Carbon Dioxide Anion Gap BUN Creatinine Est GFR (CKD-EPI)AfAm Est GFR (CKD-EPI)NonAf Random Glucose Calcium Phosphorus Magnesium Total Bilirubin AST ALT Alkaline Phosphatase Total Protein Albumin Active Medications Generic Name Dose Route Start Last Admin Trade Name Freq PRN Reason Stop Dose Admin Albuterol Sulfate 1 amp 08/07/19 08:38 Ventolin 0.083% Nebulizer Soln - NEB Q4H PRN SHORT OF BREATH/WHEEZING Albuterol/Ipratropium 1 amp 08/07/19 12:00 08/09/19 12:01 Duoneb - NEB 1 amp RQID GE Administration Diltiazem HCl 5 mg 08/09/19 13:37 Cardizem Injection - IVPUSH Q8H PRN TACHYCARDIA Potassium Chloride/Dextrose/Sod Cl 20 meq in 1,000 mls @ 42 mls/hr 08/07/19 08 :30 08/09/19 08:02 D5-1/2ns+20 Meq Kcl - IV 42 mls/hr ASDIR GE Administration Azithromycin 250 mg/ Dextrose 250 mls @ 250 mls/hr 08/09/19 14:00 IVPB DAILY GE Levetiracetam 500 mg 08/09/19 20:00 Keppra Injection - IVPB Q12H [facility] Methylprednisolone Sodium Succinate 40 mg 08/09/19 13:30 Solu-Medrol - IVPB BID GE Metoprolol Tartrate 5 mg 08/09/19 13:39 Lopressor Injection - IVPUSH Q8H PRN HYPERTENSION Phenytoin Sodium 950 mg 08/09/19 10:42 08/09/19 13:02 Phenytoin Sodium IVPB 08/09/19 18:00 950 mg BEET FLUMER GE Administration Tamsulosin HCl 0.8 mg 08/07/19 08:30 08/09/19 09:19 Flomax - PO Not Given DAILY@0830 [facility] ASSESSMENT/PLAN: 74 M PMH COPD (home O2 of 3L), HTN, dementia, OA, anxiety, afib on eliquis, esophageal adenocarcinoma who presented with shortness of breath and confusion. Patient noted to be in status epilipticus on floors, was not resolved with IV keppra, and PRN ativan. Neuro/Psych - No known hx of seizure disorder - Hx of anxiety and mild dementia - AAOx1 when not having seizure episode. 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 Multiple bilateral cerebral and left cerebellar hypodensities are seen suggestive of edema - ? history of neoplastic or infectious/inflammatory disease. Correlation with contrast-enhanced. MRI or CT may be considered. No midline displacement is noted. Note is again made of mild mass effect upon the left lateral ventricle. -F/U EEG -Neurology consulted, appreciate recs Cardio -Hx of HTN, afib -Continue Cardizem and metoprolol PRN Pulm -Hx of COPD -Chest X-ray shows b/l hyperaerated lungs, no pulmonary infiltrates -Continue BiPAP (07/02) and non-rebreather mask as needed. -Continue albuterol and duonebs GI -Patient currently alert and oriented. -Soft diet -Stable, continue to monitor Renal -Stable -Will continue to monitor F: Oral hydration E: Trend CMP N: Soft diet DVT Prophylaxis: SCDs Dispo: We will continue monitoring patient in ICU. Thank you for this consultative opportunity. Visit type - Emergency Visit Emergency Visit: Yes ED Registration Date: 08/06/19 Care time: The patient presented to the Emergency Department on the above date and was hospitalized for further evaluation of their emergent condition. - New Patient This patient is new to me today: Yes Date on this admission: 08/09/19 - Critical Care Critical Care patient: Yes Total Critical Care Time (in minutes): 45 Critical Care Statement: The care of this patient involved high complexity decision making to prevent further life threatening deterioration of the patient 's condition and/or to evaluate & treat vital organ system(s) failure or risk of failure. ATTENDING PHYSICIAN STATEMENT I saw and evaluated the patient. I reviewed the resident's note and discussed the case with the resident. I agree with the resident's findings and plan as documented. SUBJECTIVE: OBJECTIVE: ASSESSMENT AND PLAN:
--- NOTE | 2019-08-09 15:27 | PN ---
Progress Note (short form) - Note Progress Note: seizures noted on bipap now not responsive not seizing Vital Signs Period Temp Pulse Resp BP Sys/Cleaning Pulse Ox Last 24 Hr 97.8 F-99.1 F 63-123 20-21 123-159/40-114 94-100 cor-rrr lungs decreased bs at bases abd soft,nt ext no edema CBC, BMP 08/09/19 07:25 08/09/19 07:25 Microbiology 08/06/19 14:36 Urine - Urine - Catheterized Urine Culture - Final Yeast Like Organism cxray- ?RLL infiltrate imp/reccd seizures- ?brain mets- antiepileptics started, for transfer to ICU leukocytosis- obtain blood cultures, start zosyn/vanco for aspiration, suspect RLL infiltrate acute COPD exacerbation with hypercapnia/hypoxia resp failure esoophageal cancer stage 4
[2019-08-09] MEDS ORDERED: VANCOMYCIN 1 GRAM (PRE-DOCKED) 1,000 MG/250 ML BAG IVPB SCH (15:30)
[2019-08-09] MEDS: HYDROCORTISONE SOD SUCCINATE 100 MG/2 ML VIAL IVPUSH SCH ×2 (16:30→23:17)
[2019-08-09] MEDS ORDERED: DEXTROSE 5%-WATER - 50 ML IVPB ONE (16:58)
[2019-08-09] MEDS ORDERED: PIPERACILLIN/TAZOBACTAM 3.375 GM VIAL IVPB ONE (16:58)
[2019-08-09] MEDS: PIPERACILLIN/TAZOB 3.375 GM 3.375 GM in DEXTROSE 5%-WATER - 50 ML IVPB SCH ×2 (17:14→17:20)
[2019-08-09] MEDS ORDERED: methylPREDNISolone NA SUCC 40 MG/1 ML VIAL IVPUSH SCH (22:00)
[2019-08-09] MEDS ORDERED: ALBUTEROL SO4 0.083% IH SOL 2.5 MG/3 ML VIAL.NEB. NEB PRN (22:06)
[2019-08-09] MEDS ORDERED: D5-1/2NS+20 MEQ KCL - 20 MEQ/1,000 ML INFUS.BAG IV SCH (22:06)
[2019-08-09] MEDS: LORazepam 2 MG/ML SDV VIAL IVPUSH PRN (23:06)
[2019-08-09 23:11] VITALS: BMI 17.9
[2019-08-10] MEDS ORDERED: PIPERACILLIN/TAZOBACTAM 3.375 GM VIAL IVPB ONE ×3 (01:56→17:46)
[2019-08-10] MEDS ORDERED: DEXTROSE 5%-WATER - 50 ML IVPB ONE ×3 (01:56→17:46)
[2019-08-10] MEDS: PIPERACILLIN/TAZOB 3.375 GM 3.375 GM in DEXTROSE 5%-WATER - 50 ML IVPB SCH ×3 (02:17→18:22)
[2019-08-10] MEDS ORDERED: PHENYTOIN SODIUM 250 MG/5 ML VIAL IVPB ONE (02:45)
[2019-08-10] MEDS ORDERED: PHENYTOIN SODIUM 100 MG/2 ML VIAL IVPB ONE (02:45)
[2019-08-10] MEDS ORDERED: PT OWN MED DRAWER 7, Y5N ONE ×3 (05:29→21:21)
[2019-08-10 07:21] LABS: BASO % 0.2 % (0-2.0); HEMATOCRIT 37.3 % (35.4-49); MCH 27.4 pg (25.7-33.7); MCHC 32.2 g/dl (32.0-35.9); MEAN CELL VOLUME 85.1 fl (80-96); MEAN PLT VOLUME 8.5 fl (7.5-11.1); MONO % 1.8 % (3.8-10.2); PLATELET COUNT 144 K/MM3 (134-434); RBC 4.38 M/mm3 (4.00-5.60); RDW 19.9 % (11.9-15.9); WHITE BLOOD COUNT 19.6 K/mm3 (4.0-10.0)
[2019-08-10] MEDS ORDERED: levETIRAcetam 500 MG/5 ML INJECTION VIAL IVPB SCH (08:00)
[2019-08-10 08:13] LABS: ALBUMIN 2.5 g/dl (3.4-5.0); BLOOD UREA NITROGEN 11.6 mg/dL (7-18); CALCIUM 7.9 mg/dL (8.5-10.1); CREATININE 0.3 mg/dL (0.55-1.3); MAGNESIUM 2.1 mg/dL (1.8-2.4); PHOSPHOROUS 3.6 mg/dL (2.5-4.9); POTASSIUM 4.3 mmol/L (3.5-5.1); TOT PROT 5.3 g/dl (6.4-8.2)
[2019-08-10] MEDS: ALBUTEROL SO4 2.5/IPRATROPIUM 0.5 INH SOL 3 ML VIAL.NEB. NEB SCH ×4 (08:27→18:28)
[2019-08-10] MEDS: TAMSULOSIN HCL 0.4 MG CAP PO SCH (09:05)
--- NOTE | 2019-08-10 10:22 | PN ---
Progress Note, Physician Chief Complaint: Acute debility, acute generalized muscle weakness, acute dyspnea, on BiPap 50% oxygen to maintain oxygen saturation above 90%, lethargic, arousable. History of Present Illness: This 74 yr old w/m with hx of esophageal ca stage 4, COPD, rapid atrial fibrillation, hypertension, and dementia admitted via ER with an acute respiratory failure with hypoxia and hypercapnia and acute exacerbation of COPD. 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 On Bipap 50% oxygen with oxygen sat of 94%. - Current Medication List Current Medications: Active Medications Albuterol Sulfate (Ventolin 0.083% Nebulizer Soln -) 1 amp NEB Q4H PRN PRN Reason: SHORT OF BREATH/WHEEZING Last Admin: 08/09/19 21:30 Dose: 1 amp Albuterol/Ipratropium (Duoneb -) 1 amp NEB RQID GE Last Admin: 08/10/19 08:55 Dose: 1 amp Diltiazem HCl (Cardizem Injection -) 5 mg IVPUSH Q8H PRN PRN Reason: TACHYCARDIA Hydrocortisone Sodium Succinate (Solu-Cortef -) 50 mg IVPUSH Q8H GE Last Admin: 08/09/19 23:17 Dose: 50 mg Potassium Chloride/Dextrose/Sod Cl (D5-1/2ns+20 Meq Kcl -) 20 meq in 1,000 mls @ 42 mls/hr IV ASDIR GE Last Admin: 08/09/19 22:08 Dose: 42 mls/hr Vancomycin HCl (Vancomycin (Pre-Docked)) 1,000 mg in 250 mls @ 166.667 mls/hr IVPB Q24H GE; Protocol Piperacillin Sod/Tazobactam (Sod 3.375 gm/ Dextrose) 50 mls @ 100 mls/hr IVPB Q8H-IV GE; Protocol Last Admin: 08/10/19 02:17 Dose: 100 mls/hr Levetiracetam (Keppra Injection -) 500 mg IVPB Q12H GE Lorazepam (Ativan Injection -) 1 mg IVPUSH Q6H PRN PRN Reason: MUSCLE SPASMS Last Admin: 08/09/19 23:06 Dose: 1 mg Metoprolol Tartrate (Lopressor Injection -) 5 mg IVPUSH Q8H PRN PRN Reason: HYPERTENSION Phenytoin Sodium (Dilantin Injection -) 100 mg IVPB Q8H [facility] Tamsulosin HCl (Flomax -) 0.8 mg PO DAILY@0830 [facility] Last Admin: 08/10/19 09:05 Dose: Not Given - Objective Vital Signs: Vital Signs Temperature 97.8 F 08/10/19 02:28 Pulse Rate 68 08/10/19 06:00 Respiratory Rate 08/10/19 06:00 Blood Pressure 149/80 08/10/19 06:00 O2 Sat by Pulse Oximetry (%) 100 08/09/19 21:00 Constitutional: Yes: Cachectic, Mild Distress Eyes: Yes: Conjunctiva Clear, EOM Intact HENT: Yes: Atraumatic, Normocephalic Neck: Yes: Supple, Trachea Midline Cardiovascular: Yes: Regular Rate and Rhythm Respiratory: Yes: Cough, Diminished, On BiPap, Orthopnea, Rhonchi, SOB, SOB on Exertion Gastrointestinal: Yes: Normal Bowel Sounds, Soft ...Rectal Exam: Yes: Deferred Genitourinary: Yes: WNL Breast(s): Yes: WNL Musculoskeletal: Yes: Muscle Weakness Extremities: Yes: Other (decubitus ulcer stage 2 of the left heel) Edema: No Peripheral Pulses WNL: Yes Peripheral Pulses: Left Radial: 2+, Right Radial: 2+, Left Doralis Pedis: 2+, Right Dorsalis Pedis: 2+, Left Femoral: 2+, Right Femoral: 2+ Integumentary: Yes: Pressure Ulcer (left heel stage 2, sacrum stage 2) Wound/Incision: Yes: Open to air (pressure ulcer stage 2 of the left heel) Neurological: Yes: Alert, Confusion, Seizure, Unsteady Gait, Weakness ...Motor Strength: LUE (generalized muscle weakness of all extremities) Psychiatric: Yes: Alert Labs: CBC, BMP 08/10/19 05:30 08/10/19 05:30 INR, PTT INR 0.97 (0.83-1.09) 08/06/19 20:20 - ....Imaging Other: Report Reviewed (Lab data reviewed) Problem List - Problems (1) COPD exacerbation Code(s): J44.1 - CHRONIC OBSTRUCTIVE PULMONARY DISEASE W (ACUTE) EXACERBATION (2) Acute respiratory failure with hypoxia and hypercapnia Code(s): J96.01 - ACUTE RESPIRATORY FAILURE WITH HYPOXIA; J96.02 - ACUTE RESPIRATORY FAILURE WITH HYPERCAPNIA (3) Adenocarcinoma of esophagus, stage 4 Code(s): C15.9 - MALIGNANT NEOPLASM OF ESOPHAGUS, UNSPECIFIED (4) Anemia Code(s): D64.9 - ANEMIA, UNSPECIFIED (5) Atelectasis of both lungs Code(s): J98.11 - ATELECTASIS (6) Tachycardia Code(s): R00.0 - TACHYCARDIA, UNSPECIFIED (7) Acute bronchitis Code(s): J20.9 - ACUTE BRONCHITIS, UNSPECIFIED (8) Focal motor seizure Code(s): G40.109 - LOCAL-REL SYMPTC EPI W SIMP PRT SEIZ,NOT NTRCT, W/O STAT EPI (9) Hypocalcemia Code(s): E83.51 - HYPOCALCEMIA (10) Hypoalbuminemia Code(s): E88.09 - OTH DISORDERS OF PLASMA-PROTEIN METABOLISM, NEC (11) Hypoproteinemia Code(s): E77.8 - OTHER DISORDERS OF GLYCOPROTEIN METABOLISM (12) Neutrophilic leukocytosis Code(s): D72.9 - DISORDER OF WHITE BLOOD CELLS, UNSPECIFIED Assessment/Plan Assessment/plan: acute recurrent motor focal seizure, esophageal carcinoma with distant mets to the brain, acute respiratory failure with hypoxia and hypercapnia, acute exacerbation of COPD, acute debility; IV fluids, IV Piperacillin, IV Vancomycin, IV Diltiazem, IV metoprolol, IV Keppra, IV Dilantin , IV Ativan prn for seizure activity, DVT prophylaxis, discussed clinical condition of the patient with his , condition critical, DNR/DNI.
[2019-08-10 10:27] LABS: ANISOCYTOSIS 3+; MACROCYTOSIS 0; PLATELET ESTIMATE NORMAL
[2019-08-10] MEDS: LORazepam 2 MG/ML SDV VIAL IVPUSH PRN ×2 (10:49→23:17)
[2019-08-10] MEDS: HYDROCORTISONE SOD SUCCINATE 100 MG/2 ML VIAL IVPUSH SCH ×2 (10:50→16:21)
[2019-08-10] MEDS: D5-1/2NS+20 MEQ KCL - 20 MEQ/1,000 ML INFUS.BAG IV SCH (10:56)
[2019-08-10] MEDS: levETIRAcetam 500 MG/5 ML INJECTION VIAL IVPB SCH ×2 (11:02→21:46)
--- NOTE | 2019-08-10 12:43 | EKG ---
Test Reason : Blood Pressure : / mmHG Vent. Rate : 127 BPM Atrial Rate : 127 BPM P-R Int : 146 ms QRS Dur : 080 ms QT Int : 300 ms P-R-T Axes : 054 004 022 degrees QTc Int : 436 ms SINUS TACHYCARDIA OTHERWISE NORMAL ECG WHEN COMPARED WITH ECG OF 06-AUG-2019 21:21, VENT. RATE HAS INCREASED BY 72 BPM CRITERIA FOR ANTEROSEPTAL INFARCT ARE NO LONGER PRESENT NONSPECIFIC T WAVE ABNORMALITY NOW EVIDENT IN INFERIOR LEADS T WAVE AMPLITUDE HAS DECREASED IN ANTEROLATERAL LEADS Confirmed by MD Serge, Esteban ([id number]) on 08/10/2019 12:43:25 PM Referred By: Confirmed By:Esteban Valentine MD
--- NOTE | 2019-08-10 13:03 | PN ---
Progress Note (short form) - Note Progress Note: PULMONARY Lethargic on BiPAP. CT head showing multiple areas of hypodensities likely metastatic disease. Vital Signs Period Temp Pulse Resp BP Sys/Cleaning Pulse Ox Last 24 Hr 97.4 F-98.8 F 65-82 18-20 123-153/40-80 95-100 Gen: lethargic on BiPAP Heart: irregular Lung: decreased breath sounds at the bases Abd: soft, nontender Ext: no edema CBC, BMP 08/10/19 05:30 08/10/19 05:30 Active Medications Albuterol Sulfate (Ventolin 0.083% Nebulizer Soln -) 1 amp NEB Q4H PRN PRN Reason: SHORT OF BREATH/WHEEZING Last Admin: 08/09/19 21:30 Dose: 1 amp Albuterol/Ipratropium (Duoneb -) 1 amp NEB RQID GE Last Admin: 08/10/19 08:55 Dose: 1 amp Diltiazem HCl (Cardizem Injection -) 5 mg IVPUSH Q8H PRN PRN Reason: TACHYCARDIA Hydrocortisone Sodium Succinate (Solu-Cortef -) 50 mg IVPUSH Q8H GE Last Admin: 08/10/19 10:50 Dose: 50 mg Vancomycin HCl (Vancomycin (Pre-Docked)) 1,000 mg in 250 mls @ 166.667 mls/hr IVPB Q24H GE; Protocol Piperacillin Sod/Tazobactam (Sod 3.375 gm/ Dextrose) 50 mls @ 100 mls/hr IVPB Q8H-IV GE; Protocol Last Admin: 08/10/19 10:50 Dose: 100 mls/hr Potassium Chloride/Dextrose/Sod Cl (D5-1/2ns+20 Meq Kcl -) 20 meq in 1,000 mls @ 75 mls/hr IV ASDIR GE Last Admin: 08/10/19 10:56 Dose: 75 mls/hr Levetiracetam (Keppra Injection -) 1,000 mg IVPB BID GE Last Admin: 08/10/19 11:02 Dose: 1,000 mg Lorazepam (Ativan Injection -) 1 mg IVPUSH Q6H PRN PRN Reason: MUSCLE SPASMS Last Admin: 08/10/19 10:49 Dose: 1 mg Metoprolol Tartrate (Lopressor Injection -) 5 mg IVPUSH Q8H PRN PRN Reason: HYPERTENSION Phenytoin Sodium (Dilantin Injection -) 100 mg IVPB Q8H [facility] Silver Sulfadiazine (Silvadene -) 1 applic TP DAILY [facility] Tamsulosin HCl (Flomax -) 0.8 mg PO DAILY@0830 [facility] Last Admin: 08/10/19 09:05 Dose: Not Given A/P Acute on Chronic Hypoxic and Hypercapneic Respiratory Failure Acute COPD Exacerbation Pneumonia likely Aspiration Seizures Atrial Fibrillation with RVR Stage 4 Esophageal Ca with brain mets - continue antibiotics - continue antiepileptics - O2 to keep SpO2 >90% - BiPAP as needed - aspiration precautions - rate control - poor overall prognosis
[2019-08-10] MEDS: SILVER SULFADIAZINE 1% TOP CREAM 50 GM JAR TP SCH (13:44)
[2019-08-10] MEDS: PHENYTOIN SODIUM 100 MG/2 ML VIAL IVPB SCH ×2 (13:47→21:46)
[2019-08-10] MEDS: VANCOMYCIN 1 GRAM (PRE-DOCKED) 1,000 MG/250 ML BAG IVPB SCH (16:20)
--- NOTE | 2019-08-10 17:27 | PN ---
Progress Note (short form) - Note Progress Note: 74 year old male history of esophageal cancer, COPD, atrial fibrillation. He was admitted for acute respiratory failure with hyoxia, and hypercapnia. Patient has right sided focal seizure. He do not have known mets or stroke in past. Patinet is able to follow simple command , his focal seizure are much better after iv dilantin and ativan. eeg and ct head results appreciated. NEUROLOGICAL EXAMINATION opens eye and able to follow simple command there is intermittent mild focal seizure on right side were observed moving all extremity, there is no neck stiffnes vss , neck is supple CT head showed multiple mets in brain eeg showed left hemispheric seizure activity, epileptic discharged and generalized slowling Assessement /Plan right sided recurrent focal seizure, related to mets . Over all prognosis is guarded. focal seizure are improved after iv dilantin, keppra and ativan prn Plan: continue dilantin and keppra, overall prognosis is guarded - palliative care - ativan prn - ativan 1 mg prn - wll contiue to follow Thanking you so much Luis Angel Francisco MD
--- NOTE | 2019-08-10 17:52 | PN ---
Progress Note (short form) - Note Progress Note: less seizures today responsive at bedside Vital Signs Period Temp Pulse Resp BP Sys/Cleaning Pulse Ox Last 24 Hr 97.4 F-97.8 F 65-72 18-20 127-153/52-80 95-100 cor-rrr lungs decreased bs at bases abd soft,nt ext no edema CBC, BMP 08/10/19 05:30 08/10/19 05:30 Microbiology 08/09/19 07:35 Blood - Peripheral Venous Blood Culture - Preliminary NO GROWTH OBTAINED AFTER 24 HOURS, INCUBATION TO CONTINUE FOR 4 DAYS. 08/09/19 07:30 Blood - Peripheral Venous Blood Culture - Preliminary NO GROWTH OBTAINED AFTER 24 HOURS, INCUBATION TO CONTINUE FOR 4 DAYS. 08/06/19 14:36 Urine - Urine - Catheterized Urine Culture - Final Yeast Like Organism imp/reccd seizures- brain mets- antiepileptics started,steroids started, Mental staus improved leukocytosis- suspected aspiration PNA- continue vanco/zosyn, history of nares MRSA colonization acute COPD exacerbation with hypercapnia/hypoxia resp failure d/w at bedside
[2019-08-11] MEDS: HYDROCORTISONE SOD SUCCINATE 100 MG/2 ML VIAL IVPUSH SCH ×3 (00:35→16:41)
[2019-08-11] MEDS ORDERED: PIPERACILLIN/TAZOBACTAM 3.375 GM VIAL IVPB ONE ×3 (01:59→18:08)
[2019-08-11] MEDS ORDERED: DEXTROSE 5%-WATER - 50 ML IVPB ONE ×3 (02:00→18:09)
[2019-08-11] MEDS: PIPERACILLIN/TAZOB 3.375 GM 3.375 GM in DEXTROSE 5%-WATER - 50 ML IVPB SCH ×3 (02:01→18:51)
[2019-08-11] MEDS: PHENYTOIN SODIUM 100 MG/2 ML VIAL IVPB SCH ×3 (05:29→21:26)
[2019-08-11] MEDS ORDERED: LORazepam 2 MG/ML SDV VIAL IVPUSH ONE (06:00)
--- NOTE | 2019-08-11 06:18 | RAPID ---
Physical Examination Vital Signs: Vital Signs Temperature 98 F 08/11/19 00:02 Pulse Rate 81 08/11/19 00:02 Respiratory Rate 20 08/11/19 00:02 Blood Pressure 146/71 08/11/19 00:02 O2 Sat by Pulse Oximetry (%) 97 08/10/19 17:54 Labs: CBC, BMP 08/10/19 05:30 08/10/19 05:30 Rapid Response - Rapid Response Assessment: Rapid Response was called overhead. Rapid team to the bedside. Nurse noted that the patient was having seizure like activity. Patient was spoken to and was not actively seizing. Was responsive to voice and command without delay. Having twitching like activity. Vitals: HR 82 BP 157/72 General: Alert and oriented, following commands. Full body twitches. Cardiac: RRR Resp: on BiPAP, coarse breath sounds throughout Neuro: moving all limbs spontaneously and to command, opens eyes and tracks to command Recommendations/Interventions: Given 2mg Ativan for twitching activity. Morning labs to check CBC, BMP, Mag Continue anti-epileptics
[2019-08-11 06:19] LABS: BASO % 0.2 % (0-2.0); EOS % 0.1 % (0-4.5); HEMATOCRIT 35.2 % (35.4-49); HEMOGLOBIN 11.4 GM/dL (11.7-16.9); LYMPH % 1.7 % (8-40); MCH 27.5 pg (25.7-33.7); MCHC 32.5 g/dl (32.0-35.9); MEAN CELL VOLUME 84.5 fl (80-96); MEAN PLT VOLUME 8.2 fl (7.5-11.1); MONO % 3.7 % (3.8-10.2); NEUT % 94.3 % (42.8-82.8); PLATELET COUNT 161 K/MM3 (134-434); RBC 4.17 M/mm3 (4.00-5.60); RDW 19.7 % (11.9-15.9); WHITE BLOOD COUNT 16.6 K/mm3 (4.0-10.0)
[2019-08-11] MEDS: D5-1/2NS+20 MEQ KCL - 20 MEQ/1,000 ML INFUS.BAG IV SCH (06:37)
[2019-08-11 06:42] LABS: ALBUMIN 2.5 g/dl (3.4-5.0); CREATININE 0.4 mg/dL (0.55-1.3); MAGNESIUM 2.1 mg/dL (1.8-2.4); POTASSIUM 3.9 mmol/L (3.5-5.1); TOT PROT 5.4 g/dl (6.4-8.2)
[2019-08-11] MEDS: ALBUTEROL SO4 2.5/IPRATROPIUM 0.5 INH SOL 3 ML VIAL.NEB. NEB SCH ×4 (08:11→21:09)
[2019-08-11] MEDS: TAMSULOSIN HCL 0.4 MG CAP PO SCH (09:07)
[2019-08-11 09:41] LABS: ANISOCYTOSIS 1+; MACROCYTOSIS 0; PLATELET ESTIMATE NORMAL
[2019-08-11] MEDS: levETIRAcetam 500 MG/5 ML INJECTION VIAL IVPB SCH ×2 (09:58→21:59)
[2019-08-11] MEDS: LORazepam 2 MG/ML SDV VIAL IVPUSH PRN ×2 (13:03→20:40)
--- NOTE | 2019-08-11 13:12 | PN ---
Progress Note (short form) - Note Progress Note: PULMONARY Lethargic on BiPAP but arousable. Continues to have twitching. Vital Signs Period Temp Pulse Resp BP Sys/Cleaning Pulse Ox Last 24 Hr 98 F-98.2 F 70-82 18-20 131-157/61-72 97-97 Gen: lethargic on BiPAP Heart: irregular Lung: decreased breath sounds at the bases Abd: soft, nontender Ext: no edema CBC, BMP 08/11/19 05:30 08/11/19 05:30 Active Medications Albuterol Sulfate (Ventolin 0.083% Nebulizer Soln -) 1 amp NEB Q4H PRN PRN Reason: SHORT OF BREATH/WHEEZING Last Admin: 08/09/19 21:30 Dose: 1 amp Albuterol/Ipratropium (Duoneb -) 1 amp NEB RQID GE Last Admin: 08/11/19 12:55 Dose: 1 amp Diltiazem HCl (Cardizem Injection -) 5 mg IVPUSH Q8H PRN PRN Reason: TACHYCARDIA Hydrocortisone Sodium Succinate (Solu-Cortef -) 50 mg IVPUSH Q8H [facility] Last Admin: 08/11/19 08:53 Dose: 50 mg Vancomycin HCl (Vancomycin (Pre-Docked)) 1,000 mg in 250 mls @ 166.667 mls/hr IVPB Q24H [facility]; Protocol Last Admin: 08/10/19 16:20 Dose: 166.667 mls/hr Piperacillin Sod/Tazobactam (Sod 3.375 gm/ Dextrose) 50 mls @ 100 mls/hr IVPB Q8H-IV GE; Protocol Last Admin: 08/11/19 09:58 Dose: 100 mls/hr Potassium Chloride/Dextrose/Sod Cl (D5-1/2ns+20 Meq Kcl -) 20 meq in 1,000 mls @ 75 mls/hr IV ASDIR GE Last Admin: 08/11/19 06:37 Dose: 75 mls/hr Levetiracetam (Keppra Injection -) 1,000 mg IVPB BID GE Last Admin: 08/11/19 09:58 Dose: 1,000 mg Lorazepam (Ativan Injection -) 1 mg IVPUSH Q6H PRN PRN Reason: MUSCLE SPASMS Last Admin: 08/11/19 13:03 Dose: 1 mg Metoprolol Tartrate (Lopressor Injection -) 5 mg IVPUSH Q8H PRN PRN Reason: HYPERTENSION Phenytoin Sodium (Dilantin Injection -) 100 mg IVPB Q8H [facility] Last Admin: 08/11/19 05:29 Dose: 100 mg Silver Sulfadiazine (Silvadene -) 1 applic TP DAILY [facility] Last Admin: 08/10/19 13:44 Dose: 1 applic Tamsulosin HCl (Flomax -) 0.8 mg PO DAILY@0830 [facility] Last Admin: 08/11/19 09:07 Dose: Not Given A/P Acute on Chronic Hypoxic and Hypercapneic Respiratory Failure Acute COPD Exacerbation Pneumonia likely Aspiration Seizures Atrial Fibrillation with RVR Stage 4 Esophageal Ca with brain mets - continue antibiotics - continue antiepileptics - O2 to keep SpO2 >90% - BiPAP as needed - aspiration precautions - rate control - poor overall prognosis, recommend palliative care
--- NOTE | 2019-08-11 14:09 | PN ---
Progress Note, Physician Chief Complaint: Patient seen and examined at the bedside, lethargic, arousable, acute dyspnea controlled on BiPap 50% oxygen to maintain oxygen saturation above 90%, right recurrent focal seizures appear sporadically. History of Present Illness: This 74 yr old w/m with hx of COPD, esophageal ca stage 4, hypertension, atrial fibrillation with rapid ventricular response, and dementia admitted via ER with acute respiratory failure with hypoxia and hypercapnia, and an acute exacerbation of COPD. 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 - Current Medication List Current Medications: Active Medications Albuterol Sulfate (Ventolin 0.083% Nebulizer Soln -) 1 amp NEB Q4H PRN PRN Reason: SHORT OF BREATH/WHEEZING Last Admin: 08/09/19 21:30 Dose: 1 amp Albuterol/Ipratropium (Duoneb -) 1 amp NEB RQID GE Last Admin: 08/11/19 12:55 Dose: 1 amp Diltiazem HCl (Cardizem Injection -) 5 mg IVPUSH Q8H PRN PRN Reason: TACHYCARDIA Hydrocortisone Sodium Succinate (Solu-Cortef -) 50 mg IVPUSH Q8H GE Last Admin: 08/11/19 08:53 Dose: 50 mg Vancomycin HCl (Vancomycin (Pre-Docked)) 1,000 mg in 250 mls @ 166.667 mls/hr IVPB Q24H GE; Protocol Last Admin: 08/10/19 16:20 Dose: 166.667 mls/hr Piperacillin Sod/Tazobactam (Sod 3.375 gm/ Dextrose) 50 mls @ 100 mls/hr IVPB Q8H-IV GE; Protocol Last Admin: 08/11/19 09:58 Dose: 100 mls/hr Potassium Chloride/Dextrose/Sod Cl (D5-1/2ns+20 Meq Kcl -) 20 meq in 1,000 mls @ 75 mls/hr IV ASDIR GE Last Admin: 08/11/19 06:37 Dose: 75 mls/hr Levetiracetam (Keppra Injection -) 1,000 mg IVPB BID GE Last Admin: 08/11/19 09:58 Dose: 1,000 mg Lorazepam (Ativan Injection -) 1 mg IVPUSH Q6H PRN PRN Reason: MUSCLE SPASMS Last Admin: 08/11/19 13:03 Dose: 1 mg Metoprolol Tartrate (Lopressor Injection -) 5 mg IVPUSH Q8H PRN PRN Reason: HYPERTENSION Phenytoin Sodium (Dilantin Injection -) 100 mg IVPB Q8H [facility] [place] Last Admin: 08/11/19 05:29 Dose: 100 mg Silver Sulfadiazine (Silvadene -) 1 applic TP DAILY [facility] [place] Last Admin: 08/10/19 13:44 Dose: 1 applic Tamsulosin HCl (Flomax -) 0.8 mg PO DAILY@0830 [facility] [place] Last Admin: 08/11/19 09:07 Dose: Not Given - Objective Vital Signs: Vital Signs Temperature 98 F 08/11/19 09:00 Pulse Rate 71 08/11/19 09:00 Respiratory Rate 20 08/11/19 09:00 Blood Pressure 149/62 08/11/19 09:00 O2 Sat by Pulse Oximetry (%) 97 08/11/19 08:00 Constitutional: Yes: Cachectic, Mild Distress Eyes: Yes: Conjunctiva Clear, EOM Intact HENT: Yes: Atraumatic, Normocephalic Neck: Yes: Supple, Trachea Midline Cardiovascular: Yes: Regular Rate and Rhythm Respiratory: Yes: Regular, CTA Bilaterally, Cough, Diminished, On BiPap, Orthopnea, SOB, SOB on Exertion Gastrointestinal: Yes: Normal Bowel Sounds, Soft ...Rectal Exam: Yes: Deferred Genitourinary: Yes: WNL Breast(s): Yes: WNL Musculoskeletal: Yes: Muscle Weakness Edema: No Peripheral Pulses WNL: Yes Peripheral Pulses: Left Radial: 2+, Right Radial: 2+, Left Doralis Pedis: 2+, Right Dorsalis Pedis: 2+, Left Femoral: 2+, Right Femoral: 2+ Integumentary: Yes: Pressure Ulcer (sacrum and left lower leg) Wound/Incision: Yes: Open to air Neurological: Yes: Alert, Lethargy, Seizure, Unsteady Gait, Weakness. No: Babinski negative ...Motor Strength: LUE (generalized muscle weakness of all extremities) Psychiatric: Yes: Alert Labs: CBC, BMP 08/11/19 05:30 08/11/19 05:30 INR, PTT INR 0.97 (0.83-1.09) 08/06/19 20:20 - ....Imaging Other: Report Reviewed (Lab data reviewed) Problem List - Problems (1) COPD exacerbation Code(s): J44.1 - CHRONIC OBSTRUCTIVE PULMONARY DISEASE W (ACUTE) EXACERBATION (2) Acute respiratory failure with hypoxia and hypercapnia Code(s): J96.01 - ACUTE RESPIRATORY FAILURE WITH HYPOXIA; J96.02 - ACUTE RESPIRATORY FAILURE WITH HYPERCAPNIA (3) Adenocarcinoma of esophagus, stage 4 Code(s): C15.9 - MALIGNANT NEOPLASM OF ESOPHAGUS, UNSPECIFIED (4) Anemia Code(s): D64.9 - ANEMIA, UNSPECIFIED (5) Atelectasis of both lungs Code(s): J98.11 - ATELECTASIS (6) Tachycardia Code(s): R00.0 - TACHYCARDIA, UNSPECIFIED (7) Acute bronchitis Code(s): J20.9 - ACUTE BRONCHITIS, UNSPECIFIED (8) Focal motor seizure Code(s): G40.109 - LOCAL-REL SYMPTC EPI W SIMP PRT SEIZ,NOT NTRCT, W/O STAT EPI (9) Hypocalcemia Code(s): E83.51 - HYPOCALCEMIA (10) Hypoalbuminemia Code(s): E88.09 - OTH DISORDERS OF PLASMA-PROTEIN METABOLISM, NEC (11) Hypoproteinemia Code(s): E77.8 - OTHER DISORDERS OF GLYCOPROTEIN METABOLISM (12) Neutrophilic leukocytosis Code(s): D72.9 - DISORDER OF WHITE BLOOD CELLS, UNSPECIFIED (13) Decubitus ulcer of sacral region, stage 2 Code(s): L89.152 - PRESSURE ULCER OF SACRAL REGION, STAGE 2 (14) Decubitus ulcer of left leg, stage 2 Code(s): L89.892 - PRESSURE ULCER OF OTHER SITE, STAGE 2 Assessment/Plan Assessment/plan: acute recurrent right focal seizure secondary to distant mets from stage 4 esophageal ca, acute respiratory failure with hypoxia and hypercapnia, acute exacerbation of COPD, acute aspiration pneumonia, atrial fibrillation with rapid ventricular response, acute decubiti of sacrum and left lower leg; IV Piperacillin, IV Vancomycin, DVT prophylaxis, aspiration precautions, rate control with IV Diltiazem and Metoprolol, BiPap to maintain oxygen saturation above 90%, IV Keppra, Dilantin and Ativan for right recurrent focal seizure control, IV steroids, and topical silver sulfadiazine cream.
[2019-08-11] MEDS: SILVER SULFADIAZINE 1% TOP CREAM 50 GM JAR TP SCH (15:25)
[2019-08-11] MEDS: VANCOMYCIN 1 GRAM (PRE-DOCKED) 1,000 MG/250 ML BAG IVPB SCH (16:42)
--- NOTE | 2019-08-11 17:35 | PN ---
Progress Note (short form) - Note Progress Note: 74 year old male history of esophageal cancer, COPD, atrial fibrillation. He was admitted for acute respiratory failure with hyoxia, and hypercapnia. Patient has right sided focal seizure. He do not have known mets or stroke in past. Patinet is able to follow simple command , his focal seizure are much better after iv dilantin and ativan. eeg and ct head results appreciated. He continue to have recurrent right sided focal seizure NEUROLOGICAL EXAMINATION opens eye and able to follow simple command there is intermittent mild focal seizure on right side were observed moving all extremity, there is no neck stiffnes vss , neck is supple CT head showed multiple mets in brain eeg showed left hemispheric seizure activity, epileptic discharged and generalized slowling Assessement /Plan right sided recurrent focal seizure, related to mets . Over all prognosis is guarded. focal seizure are improved after iv dilantin, keppra and ativan prn Plan: continue dilantin and keppra, overall prognosis is guarded - increase keppra to 1500 mg iv bid and add depakote tomorrow , if continue to have seizure - ativan can be used more as he is DNR/DNI - ativan 1 mg prn - wll contiue to follow Thanking you so much Luis Angel Francisco MD
[2019-08-11] MEDS ORDERED: PT OWN MED DRAWER 7, Y5N ONE (21:00)
[2019-08-12] MEDS: HYDROCORTISONE SOD SUCCINATE 100 MG/2 ML VIAL IVPUSH SCH ×3 (00:11→17:20)
[2019-08-12] MEDS: D5-1/2NS+20 MEQ KCL - 20 MEQ/1,000 ML INFUS.BAG IV SCH ×2 (00:32→12:00)
[2019-08-12] MEDS ORDERED: PIPERACILLIN/TAZOBACTAM 3.375 GM VIAL IVPB ONE ×3 (00:36→17:01)
[2019-08-12] MEDS ORDERED: DEXTROSE 5%-WATER - 50 ML IVPB ONE ×3 (00:37→17:01)
[2019-08-12] MEDS: PIPERACILLIN/TAZOB 3.375 GM 3.375 GM in DEXTROSE 5%-WATER - 50 ML IVPB SCH ×3 (01:09→17:21)
[2019-08-12] MEDS: LORazepam 2 MG/ML SDV VIAL IVPUSH PRN ×2 (04:11→13:48)
[2019-08-12] MEDS ORDERED: LORazepam 2 MG/ML SDV VIAL IVPUSH ONE (06:00)
[2019-08-12] MEDS: PHENYTOIN SODIUM 100 MG/2 ML VIAL IVPB SCH ×3 (06:23→22:45)
[2019-08-12 06:52] LABS: EOS % 0.1 % (0-4.5); HEMATOCRIT 33.5 % (35.4-49); HEMOGLOBIN 10.9 GM/dL (11.7-16.9); LYMPH % 3.2 % (8-40); MCH 27.7 pg (25.7-33.7); MCHC 32.6 g/dl (32.0-35.9); MEAN CELL VOLUME 84.8 fl (80-96); MEAN PLT VOLUME 8.6 fl (7.5-11.1); MONO % 4.3 % (3.8-10.2); NEUT % 92.4 % (42.8-82.8); PLATELET COUNT 160 K/MM3 (134-434); RBC 3.95 M/mm3 (4.00-5.60); WHITE BLOOD COUNT 13.2 K/mm3 (4.0-10.0)
[2019-08-12 07:14] LABS: ALBUMIN 2.3 g/dl (3.4-5.0); BILIRUBIN,TOTAL 0.6 mg/dL (0.2-1); CALCIUM 7.5 mg/dL (8.5-10.1); CREATININE 0.3 mg/dL (0.55-1.3); POTASSIUM 3.7 mmol/L (3.5-5.1); TOT PROT 5.2 g/dl (6.4-8.2)
[2019-08-12] MEDS: ALBUTEROL SO4 2.5/IPRATROPIUM 0.5 INH SOL 3 ML VIAL.NEB. NEB SCH ×4 (07:25→20:19)
--- NOTE | 2019-08-12 08:31 | PN ---
Progress Note (short form) - Note Progress Note: 74 year old male history of esophageal cancer, COPD, atrial fibrillation. He was admitted for acute respiratory failure with hyoxia, and hypercapnia. Patient has right sided focal seizure. He do not have known mets or stroke in past. Patimarija is able to follow simple command , his focal seizure are much better after iv dilantin and ativan. eeg and ct head results appreciated. He continue to have recurrent right sided focal seizure , specially giving trying to wake him up. NEUROLOGICAL EXAMINATION opens eye and able to follow simple command there is intermittent mild focal seizure on right side were observed moving all extremity, there is no neck stiffnes vss , neck is supple CT head showed multiple mets in brain eeg showed left hemispheric seizure activity, epileptic discharged and generalized slowling Assessement /Plan right sided recurrent focal seizure, related to mets . Over all prognosis is guarded. focal seizure are improved after iv dilantin, keppra and ativan prn Plan: continue dilantin and keppra, overall prognosis is guarded - i would add depakote 500 iv bid and continue rest of medication same. - ativan can be used more as he is DNR/DNI - ativan 1 mg prn - wll contiue to follow Thanking you so much Luis Angel Francisco MD
[2019-08-12 09:09] LABS: ANISOCYTOSIS 1+; MACROCYTOSIS 0; PLATELET ESTIMATE NORMAL
[2019-08-12] MEDS: TAMSULOSIN HCL 0.4 MG CAP PO SCH (10:40)
[2019-08-12] MEDS: levETIRAcetam 500 MG/5 ML INJECTION VIAL IVPB SCH ×2 (10:40→22:37)
[2019-08-12] MEDS: SILVER SULFADIAZINE 1% TOP CREAM 50 GM JAR TP SCH (10:41)
[2019-08-12] MEDS: VALPROATE SODIUM 500 MG/5 ML VIAL IVPB SCH ×2 (10:41→23:05)
--- NOTE | 2019-08-12 11:37 | PN ---
Progress Note (short form) - Note Progress Note: PULMONARY Lethargic on BiPAP but arousable. No fevers recorded. Vital Signs Period Temp Pulse Resp BP Sys/Cleaning Pulse Ox Last 24 Hr 97.2 F-98.2 F 64-78 20-23 140-160/58-70 93-98 Gen: lethargic on BiPAP Heart: irregular Lung: decreased breath sounds at the bases Abd: soft, nontender Ext: no edema CBC, BMP 08/12/19 05:20 08/12/19 05:20 Active Medications Albuterol Sulfate (Ventolin 0.083% Nebulizer Soln -) 1 amp NEB Q4H PRN PRN Reason: SHORT OF BREATH/WHEEZING Last Admin: 08/09/19 21:30 Dose: 1 amp Albuterol/Ipratropium (Duoneb -) 1 amp NEB RQID GE Last Admin: 08/12/19 11:33 Dose: 1 amp Diltiazem HCl (Cardizem Injection -) 5 mg IVPUSH Q8H PRN PRN Reason: TACHYCARDIA Hydrocortisone Sodium Succinate (Solu-Cortef -) 50 mg IVPUSH Q8H GE Last Admin: 08/12/19 10:00 Dose: 50 mg Vancomycin HCl (Vancomycin (Pre-Docked)) 1,000 mg in 250 mls @ 166.667 mls/hr IVPB Q24H GE; Protocol Last Admin: 08/11/19 16:42 Dose: 166.667 mls/hr Piperacillin Sod/Tazobactam (Sod 3.375 gm/ Dextrose) 50 mls @ 100 mls/hr IVPB Q8H-IV GE; Protocol Last Admin: 08/12/19 10:40 Dose: 100 mls/hr Potassium Chloride/Dextrose/Sod Cl (D5-1/2ns+20 Meq Kcl -) 20 meq in 1,000 mls @ 75 mls/hr IV ASDIR GE Last Admin: 08/12/19 00:32 Dose: 75 mls/hr Levetiracetam (Keppra Injection -) 1,500 mg IVPB BID GE Last Admin: 08/12/19 10:40 Dose: 1,500 mg Lorazepam (Ativan Injection -) 1 mg IVPUSH Q6H PRN PRN Reason: MUSCLE SPASMS Last Admin: 08/12/19 04:11 Dose: 1 mg Metoprolol Tartrate (Lopressor Injection -) 5 mg IVPUSH Q8H PRN PRN Reason: HYPERTENSION Phenytoin Sodium (Dilantin Injection -) 100 mg IVPB Q8H [facility] Last Admin: 08/12/19 06:23 Dose: 100 mg Silver Sulfadiazine (Silvadene -) 1 applic TP DAILY [facility] Last Admin: 08/12/19 10:41 Dose: 1 applic Tamsulosin HCl (Flomax -) 0.8 mg PO DAILY@0830 [facility] Last Admin: 08/12/19 10:40 Dose: Not Given Valproate Sodium (Depacon Injection -) 500 mg IVPB BID [facility] Last Admin: 08/12/19 10:41 Dose: 500 mg A/P Acute on Chronic Hypoxic and Hypercapneic Respiratory Failure Acute COPD Exacerbation Pneumonia likely Aspiration Seizures Atrial Fibrillation with RVR Stage 4 Esophageal Ca with brain mets - continue antibiotics - continue antiepileptics - on hydrocortisone - O2 to keep SpO2 >90% - BiPAP as needed - aspiration precautions - rate control - poor overall prognosis, recommend palliative care
[2019-08-12] MEDS: METOPROLOL TARTRATE 5 MG/5 ML VIAL IVPUSH PRN (12:49)
[2019-08-12] MEDS ORDERED: PT OWN MED DRAWER 7, Y5N ONE (14:02)
--- NOTE | 2019-08-12 14:10 | PN ---
Progress Note, Physician Chief Complaint: Patient seen and examined at the bedside, acute recurrent right focal seizures, awake, eyes open, follows simple verbal commands, on BiPap 50% oxygen to maintain oxygen sat above 90%. History of Present Illness: This 74 yr old w/m with hx of stage 4 esophageal ca, atrial fibrillation with rapid ventricular rate, COPD, hypertension, and dementia admitted via ER with acute respiratory failure with hypoxia and hypercapnia, and acute exacerbation of COPD. 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 On BiPap 50% to maintain oxygen sat above 90%. - Current Medication List Current Medications: Active Medications Albuterol Sulfate (Ventolin 0.083% Nebulizer Soln -) 1 amp NEB Q4H PRN PRN Reason: SHORT OF BREATH/WHEEZING Last Admin: 08/09/19 21:30 Dose: 1 amp Albuterol/Ipratropium (Duoneb -) 1 amp NEB RQID GE Last Admin: 08/12/19 11:33 Dose: 1 amp Diltiazem HCl (Cardizem Injection -) 5 mg IVPUSH Q8H PRN PRN Reason: TACHYCARDIA Hydrocortisone Sodium Succinate (Solu-Cortef -) 50 mg IVPUSH Q8H GE Last Admin: 08/12/19 10:00 Dose: 50 mg Vancomycin HCl (Vancomycin (Pre-Docked)) 1,000 mg in 250 mls @ 166.667 mls/hr IVPB Q24H GE; Protocol Last Admin: 08/11/19 16:42 Dose: 166.667 mls/hr Piperacillin Sod/Tazobactam (Sod 3.375 gm/ Dextrose) 50 mls @ 100 mls/hr IVPB Q8H-IV GE; Protocol Last Admin: 08/12/19 10:40 Dose: 100 mls/hr Potassium Chloride/Dextrose/Sod Cl (D5-1/2ns+20 Meq Kcl -) 20 meq in 1,000 mls @ 75 mls/hr IV ASDIR GE Last Admin: 08/12/19 00:32 Dose: 75 mls/hr Levetiracetam (Keppra Injection -) 1,500 mg IVPB BID GE Last Admin: 08/12/19 10:40 Dose: 1,500 mg Lorazepam (Ativan Injection -) 1 mg IVPUSH Q6H PRN PRN Reason: MUSCLE SPASMS Last Admin: 08/12/19 13:48 Dose: 1 mg Metoprolol Tartrate (Lopressor Injection -) 5 mg IVPUSH Q8H PRN PRN Reason: HYPERTENSION Last Admin: 08/12/19 12:49 Dose: 5 mg Phenytoin Sodium (Dilantin Injection -) 100 mg IVPB Q8H [facility] Last Admin: 08/12/19 06:23 Dose: 100 mg Silver Sulfadiazine (Silvadene -) 1 applic TP DAILY [facility] Last Admin: 08/12/19 10:41 Dose: 1 applic Tamsulosin HCl (Flomax -) 0.8 mg PO DAILY@0830 [facility] Last Admin: 08/12/19 10:40 Dose: Not Given Valproate Sodium (Depacon Injection -) 500 mg IVPB BID [facility] Last Admin: 08/12/19 10:41 Dose: 500 mg - Objective Vital Signs: Vital Signs Temperature 97.8 F 08/12/19 10:00 Pulse Rate 131 H 08/12/19 12:49 Respiratory Rate 22 H 08/12/19 10:00 Blood Pressure 142/78 08/12/19 12:49 O2 Sat by Pulse Oximetry (%) 93 L 08/12/19 09:00 Constitutional: Yes: Cachectic, Mild Distress Eyes: Yes: Conjunctiva Clear, EOM Intact HENT: Yes: Atraumatic, Normocephalic Neck: Yes: Supple, Trachea Midline Cardiovascular: Yes: Regular Rate and Rhythm, Tachycardia Respiratory: Yes: Cough, Diminished, On BiPap, SOB, SOB on Exertion Gastrointestinal: Yes: Normal Bowel Sounds, Soft ...Rectal Exam: Yes: Deferred Genitourinary: Yes: Boyd Present, Incontinence Breast(s): Yes: WNL Musculoskeletal: Yes: Muscle Weakness Extremities: Yes: Other (generalized muscle weakness) Edema: No Peripheral Pulses WNL: Yes Peripheral Pulses: Left Radial: 2+, Right Radial: 2+, Left Doralis Pedis: 2+, Right Dorsalis Pedis: 2+, Left Femoral: 2+, Right Femoral: 2+ Integumentary: Yes: Pressure Ulcer (stage 2 pressure ulcers of buttocks and lower legs) Neurological: Yes: Alert, Weakness ...Motor Strength: LUE (generalized muscle weakness) Psychiatric: Yes: Alert Labs: CBC, BMP 08/12/19 05:20 08/12/19 05:20 INR, PTT INR 0.97 (0.83-1.09) 08/06/19 20:20 - ....Imaging Other: Report Reviewed (Lab data reviewed, Neuro and Pulmo notes reviewed and appreciated) Problem List - Problems (1) COPD exacerbation Code(s): J44.1 - CHRONIC OBSTRUCTIVE PULMONARY DISEASE W (ACUTE) EXACERBATION (2) Acute respiratory failure with hypoxia and hypercapnia Code(s): J96.01 - ACUTE RESPIRATORY FAILURE WITH HYPOXIA; J96.02 - ACUTE RESPIRATORY FAILURE WITH HYPERCAPNIA (3) Adenocarcinoma of esophagus, stage 4 Code(s): C15.9 - MALIGNANT NEOPLASM OF ESOPHAGUS, UNSPECIFIED (4) Anemia Code(s): D64.9 - ANEMIA, UNSPECIFIED (5) Atelectasis of both lungs Code(s): J98.11 - ATELECTASIS (6) Tachycardia Code(s): R00.0 - TACHYCARDIA, UNSPECIFIED (7) Acute bronchitis Code(s): J20.9 - ACUTE BRONCHITIS, UNSPECIFIED (8) Focal motor seizure Code(s): G40.109 - LOCAL-REL SYMPTC EPI W SIMP PRT SEIZ,NOT NTRCT, W/O STAT EPI (9) Hypocalcemia Code(s): E83.51 - HYPOCALCEMIA (10) Hypoalbuminemia Code(s): E88.09 - OTH DISORDERS OF PLASMA-PROTEIN METABOLISM, NEC (11) Hypoproteinemia Code(s): E77.8 - OTHER DISORDERS OF GLYCOPROTEIN METABOLISM (12) Neutrophilic leukocytosis Code(s): D72.9 - DISORDER OF WHITE BLOOD CELLS, UNSPECIFIED (13) Decubitus ulcer of sacral region, stage 2 Code(s): L89.152 - PRESSURE ULCER OF SACRAL REGION, STAGE 2 (14) Decubitus ulcer of left leg, stage 2 Code(s): L89.892 - PRESSURE ULCER OF OTHER SITE, STAGE 2 (15) Decubitus ulcer of left buttock, stage 2 Code(s): L89.322 - PRESSURE ULCER OF LEFT BUTTOCK, STAGE 2 (16) Decubitus ulcer of right buttock, stage 2 Code(s): L89.312 - PRESSURE ULCER OF RIGHT BUTTOCK, STAGE 2 (17) Decubitus ulcer of right leg, stage 2 Code(s): L89.892 - PRESSURE ULCER OF OTHER SITE, STAGE 2 Assessment/Plan Assessment/plan: acute recurrent right focal seizures secondary to brain mets from stage 4 esophageal ca, acute respiratory failure with hypoxia and hypercapnia, acute aspiration pneumonia, atrial fibrillation with rapid ventricular rate, acute exacerbation of COPD; IV fluids, IV Piperacillin and IV Vancomycin for treatment of infection; IV Valproate, IV Keppra, IV Dilaintin, and IV Ativan prn for seizure control; IV Metoprolol and Diltiazem for rate control; SCD'S for DVT prophylaxis, topical silver sulfadiazine for pressure ulcers, IV hydrocortisone for treatment of COPD exacerbation and cerebral edema , aspiration precautions, on BiPap 50% oxygen to maintain oxygen sat at above 90%.
[2019-08-12] MEDS: dilTIAZem HCL 50 MG/10 ML - 10 ML VIAL IVPUSH PRN (16:05)
[2019-08-12] MEDS: VANCOMYCIN 1 GRAM (PRE-DOCKED) 1,000 MG/250 ML BAG IVPB SCH (16:25)
[2019-08-12] MEDS ORDERED: ALPRAZolam 1 MG TABLET PO PRN (20:14)
[2019-08-13] MEDS: HYDROCORTISONE SOD SUCCINATE 100 MG/2 ML VIAL IVPUSH SCH ×3 (00:14→16:22)
[2019-08-13] MEDS ORDERED: DEXTROSE 5%-WATER - 50 ML IVPB ONE ×3 (02:55→17:24)
[2019-08-13] MEDS ORDERED: PIPERACILLIN/TAZOBACTAM 3.375 GM VIAL IVPB ONE ×3 (02:55→17:24)
[2019-08-13] MEDS: PIPERACILLIN/TAZOB 3.375 GM 3.375 GM in DEXTROSE 5%-WATER - 50 ML IVPB SCH ×3 (03:08→17:52)
[2019-08-13] MEDS: LORazepam 2 MG/ML SDV VIAL IVPUSH PRN ×2 (06:21→14:37)
[2019-08-13] MEDS: PHENYTOIN SODIUM 100 MG/2 ML VIAL IVPB SCH ×3 (06:23→22:07)
[2019-08-13] MEDS: dilTIAZem HCL 50 MG/10 ML - 10 ML VIAL IVPUSH PRN ×2 (06:31→14:39)
[2019-08-13 06:46] LABS: HEMATOCRIT 37.2 % (35.4-49); HEMOGLOBIN 12.3 GM/dL (11.7-16.9); LYMPH % 3.7 % (8-40); MCH 27.9 pg (25.7-33.7); MEAN CELL VOLUME 84.5 fl (80-96); MEAN PLT VOLUME 8.4 fl (7.5-11.1); MONO % 5.6 % (3.8-10.2); NEUT % 90.7 % (42.8-82.8); PLATELET COUNT 202 K/MM3 (134-434); RBC 4.41 M/mm3 (4.00-5.60); RDW 19.8 % (11.9-15.9); WHITE BLOOD COUNT 13.5 K/mm3 (4.0-10.0)
[2019-08-13 07:10] LABS: ALBUMIN 2.4 g/dl (3.4-5.0); BILIRUBIN,TOTAL 0.7 mg/dL (0.2-1); BLOOD UREA NITROGEN 9.7 mg/dL (7-18); CREATININE 0.3 mg/dL (0.55-1.3); POTASSIUM 3.7 mmol/L (3.5-5.1); TOT PROT 5.4 g/dl (6.4-8.2)
[2019-08-13] MEDS: ALBUTEROL SO4 2.5/IPRATROPIUM 0.5 INH SOL 3 ML VIAL.NEB. NEB SCH ×4 (08:39→20:35)
--- NOTE | 2019-08-13 09:59 | PN ---
Progress Note (short form) - Note Progress Note: 74 year old male history of esophageal cancer, COPD, atrial fibrillation. He was admitted for acute respiratory failure with hyoxia, and hypercapnia. Patient has right sided focal seizure. He do not have known mets or stroke in past. Patinet is able to follow simple command , his focal seizure are much better after iv dilantin and ativan. eeg and ct head results appreciated. His focal seizure are controlled and no episode were seen. NEUROLOGICAL EXAMINATION opens eye and able to follow simple command there is intermittent mild focal seizure on right side were observed moving all extremity, there is no neck stiffnes vss , neck is supple CT head showed multiple mets in brain eeg showed left hemispheric seizure activity, epileptic discharged and generalized slowling Assessement /Plan right sided recurrent focal seizure, related to mets . Over all prognosis is guarded. focal seizure are improved after iv dilantin, keppra and ativan prn Plan: continue dilantin and keppra, and depakote - seizure under control - ativan 1 mg prn - wll contiue to follow Thanking you so much Luis Angel Francisco MD
--- NOTE | 2019-08-13 10:39 | PN ---
Progress Note (short form) - Note Progress Note: Drowsy but arousable on NIPPV support. Able to follow some simple commands. No fevers recorded. No acute events overnight. Intake & Output 08/10/19 08/11/19 08/12/19 08/13/19 23:59 23:59 23:59 23:59 Intake Total 570 2075 1150 1050 Balance 570 2075 1150 1050 Last Vital Signs Temp Pulse Resp BP Pulse Ox 98.9 F 144 H 22 H 150/102 H 100 08/13/19 02:00 08/13/19 06:04 08/13/19 06:04 08/13/19 06:04 08/13/19 08:38 Active Medications Albuterol Sulfate (Ventolin 0.083% Nebulizer Soln -) 1 amp NEB Q4H PRN PRN Reason: SHORT OF BREATH/WHEEZING Last Admin: 08/09/19 21:30 Dose: 1 amp Albuterol/Ipratropium (Duoneb -) 1 amp NEB RQID GE Last Admin: 08/13/19 08:39 Dose: 1 amp Diltiazem HCl (Cardizem Injection -) 5 mg IVPUSH Q8H PRN PRN Reason: TACHYCARDIA Last Admin: 08/13/19 06:31 Dose: 5 mg Hydrocortisone Sodium Succinate (Solu-Cortef -) 50 mg IVPUSH Q8H [facility] Last Admin: 08/13/19 00:14 Dose: 50 mg Vancomycin HCl (Vancomycin (Pre-Docked)) 1,000 mg in 250 mls @ 166.667 mls/hr IVPB Q24H [facility]; Protocol Last Admin: 08/12/19 16:25 Dose: 166.667 mls/hr Piperacillin Sod/Tazobactam (Sod 3.375 gm/ Dextrose) 50 mls @ 100 mls/hr IVPB Q8H-IV GE; Protocol Last Admin: 08/13/19 03:08 Dose: 100 mls/hr Potassium Chloride/Dextrose/Sod Cl (D5-1/2ns+20 Meq Kcl -) 20 meq in 1,000 mls @ 75 mls/hr IV ASDIR GE Last Admin: 08/12/19 12:00 Dose: 75 mls/hr Levetiracetam (Keppra Injection -) 1,500 mg IVPB BID GE Last Admin: 08/12/19 22:37 Dose: 1,500 mg Lorazepam (Ativan Injection -) 1 mg IVPUSH Q6H PRN PRN Reason: ANXIETY Last Admin: 08/13/19 06:21 Dose: 1 mg Metoprolol Tartrate (Lopressor Injection -) 5 mg IVPUSH Q8H PRN PRN Reason: HYPERTENSION Last Admin: 08/12/19 12:49 Dose: 5 mg Phenytoin Sodium (Dilantin Injection -) 100 mg IVPB Q8H [facility] Last Admin: 08/13/19 06:23 Dose: 100 mg Silver Sulfadiazine (Silvadene -) 1 applic TP DAILY [facility] Last Admin: 08/12/19 10:41 Dose: 1 applic Tamsulosin HCl (Flomax -) 0.8 mg PO DAILY@0830 [facility] Last Admin: 08/12/19 10:40 Dose: Not Given Valproate Sodium (Depacon Injection -) 500 mg IVPB BID [facility] Last Admin: 08/12/19 23:05 Dose: 500 mg Gen: Drowsy on NIPPV support Heart: irregular Lung: Bilateral rhonchi, decreased breath sounds at the bases Abd: soft, nontender Ext: no edema Laboratory Results - last 24 hr 08/13/19 08/13/19 05:30 05:30 WBC 13.5 H RBC 4.41 Hgb 12.3 Hct 37.2 MCV 84.5 MCH 27.9 MCHC 33.0 RDW 19.8 H Plt Count 202 D MPV 8.4 Absolute Neuts (auto) 12.2 H Neutrophils % 90.7 H Lymphocytes % 3.7 L Monocytes % 5.6 Eosinophils % 0.0 D Basophils % 0.0 Nucleated RBC % 0 Sodium 136 Potassium 3.7 Chloride 98 Carbon Dioxide 32 Anion Gap 6 L BUN 9.7 Creatinine 0.3 L Est GFR (CKD-EPI)AfAm 150.50 Est GFR (CKD-EPI)NonAf 129.85 Random Glucose 99 Calcium 8.0 L Total Bilirubin 0.7 AST 38 H ALT 14 Alkaline Phosphatase 85 Total Protein 5.4 L Albumin 2.4 L A/P Acute on Chronic Hypoxic and Hypercapneic Respiratory Failure Acute COPD Exacerbation Pneumonia likely Aspiration Seizures Atrial Fibrillation with RVR Stage 4 Esophageal Ca with brain mets - Trial of 50% VM O2 - ABX - continue antiepileptics - on hydrocortisone - O2 to keep SpO2 >90% - NIPPV as needed - aspiration precautions - rate control - poor overall prognosis, recommend palliative care Dr Turner
[2019-08-13] MEDS: D5-1/2NS+20 MEQ KCL - 20 MEQ/1,000 ML INFUS.BAG IV SCH (10:57)
[2019-08-13] MEDS: TAMSULOSIN HCL 0.4 MG CAP PO SCH (11:01)
[2019-08-13] MEDS: levETIRAcetam 500 MG/5 ML INJECTION VIAL IVPB SCH (11:03)
[2019-08-13] MEDS: SILVER SULFADIAZINE 1% TOP CREAM 50 GM JAR TP SCH (11:21)
[2019-08-13] MEDS: METOPROLOL TARTRATE 5 MG/5 ML VIAL IVPUSH PRN (11:48)
[2019-08-13] MEDS: VALPROATE SODIUM 500 MG/5 ML VIAL IVPB SCH ×2 (11:55→22:07)
--- NOTE | 2019-08-13 13:03 | PN ---
Progress Note, Physician Chief Complaint: Patient seen and examined at the bedside, recurrent right focal seizure activity is present, eyes open, follows simple commands, denies to shortness of breath, and/or body pain, on BiPap 50% to maintain oxygen sat above 90%. History of Present Illness: This 74 yr old w/m with hx of esophageal ca stage 4, hypertension, COPD, and dementia admitted via ER with acute exacerbation of COPD, and an acute respiratory failure with hypoxia and hypercapnia. During hospitalization patient was noted to have an acute recurrent right focal seizures followed by an acute exacerbation of respiratory failure with hypoxia and hypercapnia. - Current Medication List Current Medications: Active Medications Albuterol Sulfate (Ventolin 0.083% Nebulizer Soln -) 1 amp NEB Q4H PRN PRN Reason: SHORT OF BREATH/WHEEZING Last Admin: 08/09/19 21:30 Dose: 1 amp Albuterol/Ipratropium (Duoneb -) 1 amp NEB RQID EG Last Admin: 08/13/19 12:14 Dose: 1 amp Diltiazem HCl (Cardizem Injection -) 5 mg IVPUSH Q8H PRN PRN Reason: TACHYCARDIA Last Admin: 08/13/19 06:31 Dose: 5 mg Hydrocortisone Sodium Succinate (Solu-Cortef -) 50 mg IVPUSH Q8H GE Last Admin: 08/13/19 11:03 Dose: 50 mg Vancomycin HCl (Vancomycin (Pre-Docked)) 1,000 mg in 250 mls @ 166.667 mls/hr IVPB Q24H GE; Protocol Last Admin: 08/12/19 16:25 Dose: 166.667 mls/hr Piperacillin Sod/Tazobactam (Sod 3.375 gm/ Dextrose) 50 mls @ 100 mls/hr IVPB Q8H-IV GE; Protocol Last Admin: 08/13/19 11:06 Dose: 100 mls/hr Potassium Chloride/Dextrose/Sod Cl (D5-1/2ns+20 Meq Kcl -) 20 meq in 1,000 mls @ 75 mls/hr IV ASDIR GE Last Admin: 08/13/19 10:57 Dose: 75 mls/hr Levetiracetam (Keppra Injection -) 1,500 mg IVPB BID GE Last Admin: 08/13/19 11:03 Dose: 1,500 mg Lorazepam (Ativan Injection -) 1 mg IVPUSH Q6H PRN PRN Reason: ANXIETY Last Admin: 08/13/19 06:21 Dose: 1 mg Metoprolol Tartrate (Lopressor Injection -) 5 mg IVPUSH Q8H PRN PRN Reason: HYPERTENSION Last Admin: 08/13/19 11:48 Dose: 5 mg Phenytoin Sodium (Dilantin Injection -) 100 mg IVPB Q8H [facility] Last Admin: 08/13/19 06:23 Dose: 100 mg Silver Sulfadiazine (Silvadene -) 1 applic TP DAILY [facility] Last Admin: 08/13/19 11:21 Dose: 1 applic Tamsulosin HCl (Flomax -) 0.8 mg PO DAILY@0830 [facility] Last Admin: 08/13/19 11:01 Dose: Not Given Valproate Sodium (Depacon Injection -) 500 mg IVPB BID [facility] Last Admin: 08/13/19 11:55 Dose: 500 mg - Objective Vital Signs: Vital Signs Temperature 97.4 F L 08/13/19 10:00 Pulse Rate 145 H 08/13/19 11:48 Respiratory Rate 08/13/19 10:00 Blood Pressure 139/96 08/13/19 11:48 O2 Sat by Pulse Oximetry (%) 100 08/13/19 12:13 Constitutional: Yes: No Distress, Calm Eyes: Yes: Conjunctiva Clear, EOM Intact HENT: Yes: Atraumatic, Normocephalic Neck: Yes: Supple, Trachea Midline Cardiovascular: Yes: Tachycardia, Pulse Irregular Respiratory: Yes: Diminished, On BiPap, SOB, SOB on Exertion Gastrointestinal: Yes: Normal Bowel Sounds, Soft ...Rectal Exam: Yes: Deferred Genitourinary: Yes: WNL Breast(s): Yes: WNL Musculoskeletal: Yes: Muscle Weakness Extremities: Yes: Other (generalized muscle weakness) Edema: No Peripheral Pulses WNL: Yes Peripheral Pulses: Left Radial: 2+, Right Radial: 2+, Left Doralis Pedis: 2+, Right Dorsalis Pedis: 2+, Left Femoral: 2+, Right Femoral: 2+ Integumentary: Yes: Pressure Ulcer (Buttocks and both lower legs) Wound/Incision: Yes: Open to air, Dressing Dry and Intact Neurological: Yes: Alert, Weakness ...Motor Strength: LUE (generalized muscle weakness of all extremities) Psychiatric: Yes: Alert Labs: CBC, BMP 08/13/19 05:30 08/13/19 05:30 INR, PTT INR 0.97 (0.83-1.09) 08/06/19 20:20 - ....Imaging Other: Report Reviewed (Lab data reviewed, consult notes read and appreciated) Problem List - Problems (1) COPD exacerbation Code(s): J44.1 - CHRONIC OBSTRUCTIVE PULMONARY DISEASE W (ACUTE) EXACERBATION (2) Acute respiratory failure with hypoxia and hypercapnia Code(s): J96.01 - ACUTE RESPIRATORY FAILURE WITH HYPOXIA; J96.02 - ACUTE RESPIRATORY FAILURE WITH HYPERCAPNIA (3) Adenocarcinoma of esophagus, stage 4 Code(s): C15.9 - MALIGNANT NEOPLASM OF ESOPHAGUS, UNSPECIFIED (4) Anemia Code(s): D64.9 - ANEMIA, UNSPECIFIED (5) Atelectasis of both lungs Code(s): J98.11 - ATELECTASIS (6) Tachycardia Code(s): R00.0 - TACHYCARDIA, UNSPECIFIED (7) Acute bronchitis Code(s): J20.9 - ACUTE BRONCHITIS, UNSPECIFIED (8) Focal motor seizure Code(s): G40.109 - LOCAL-REL SYMPTC EPI W SIMP PRT SEIZ,NOT NTRCT, W/O STAT EPI (9) Hypocalcemia Code(s): E83.51 - HYPOCALCEMIA (10) Hypoalbuminemia Code(s): E88.09 - OTH DISORDERS OF PLASMA-PROTEIN METABOLISM, NEC (11) Hypoproteinemia Code(s): E77.8 - OTHER DISORDERS OF GLYCOPROTEIN METABOLISM (12) Neutrophilic leukocytosis Code(s): D72.9 - DISORDER OF WHITE BLOOD CELLS, UNSPECIFIED (13) Decubitus ulcer of sacral region, stage 2 Code(s): L89.152 - PRESSURE ULCER OF SACRAL REGION, STAGE 2 (14) Decubitus ulcer of left leg, stage 2 Code(s): L89.892 - PRESSURE ULCER OF OTHER SITE, STAGE 2 (15) Decubitus ulcer of left buttock, stage 2 Code(s): L89.322 - PRESSURE ULCER OF LEFT BUTTOCK, STAGE 2 (16) Decubitus ulcer of right buttock, stage 2 Code(s): L89.312 - PRESSURE ULCER OF RIGHT BUTTOCK, STAGE 2 (17) Decubitus ulcer of right leg, stage 2 Code(s): L89.892 - PRESSURE ULCER OF OTHER SITE, STAGE 2 Assessment/Plan Assessment/plan: acute respiratory failure with hypoxia and hypercapnia, acute exacerbation of COPD, acute recurrent right focal seizures secondary to distant mets from esophageal ca stage 4, acute aspiration pneumonia, acute atrial fibrillation with rapid ventricular response; IV fluids, IV Piperacillin and IV Vancomycin for treatment of aspiration pneumonia; IV Hydrocortisone for treatment of acute exacerbation of COPD and cerebral edema; IV Metoprolol and IV Diltiazem for rate control; IV Keppra, IV Dilantin, and IV Ativan prn for seizure control, palliative care, SCD'S for DVT prophylaxis,
[2019-08-13] MEDS: VANCOMYCIN 1 GRAM (PRE-DOCKED) 1,000 MG/250 ML BAG IVPB SCH (16:22)
--- NOTE | 2019-08-13 17:30 | PN ---
Progress Note (short form) - Note Progress Note: more responsive on ventimask Vital Signs Period Temp Pulse Resp BP Sys/Cleaning Pulse Ox Last 24 Hr 97.4 F-98.9 F 114-149 20-23 120-150/83-102 97-100 cor-rrr lungs decreased bs at bases abd soft,nt ext no edema CBC, BMP 08/13/19 05:30 08/13/19 05:30 Microbiology 08/09/19 07:35 Blood - Peripheral Venous Blood Culture - Preliminary NO GROWTH OBTAINED AFTER 96 HOURS, INCUBATION TO CONTINUE FOR 1 DAYS. 08/09/19 07:30 Blood - Peripheral Venous Blood Culture - Preliminary NO GROWTH OBTAINED AFTER 96 HOURS, INCUBATION TO CONTINUE FOR 1 DAYS. 08/06/19 14:36 Urine - Urine - Catheterized Urine Culture - Final Yeast Like Organism Current Medications Albuterol Sulfate (Ventolin 0.083% Nebulizer Soln -) 1 amp NEB Q4H PRN PRN Reason: SHORT OF BREATH/WHEEZING Last Admin: 08/09/19 21:30 Dose: 1 amp Albuterol/Ipratropium (Duoneb -) 1 amp NEB RQID GE Last Admin: 08/13/19 15:58 Dose: 1 amp Diltiazem HCl (Cardizem Injection -) 5 mg IVPUSH Q8H PRN PRN Reason: TACHYCARDIA Last Admin: 08/13/19 14:39 Dose: 5 mg Hydrocortisone Sodium Succinate (Solu-Cortef -) 50 mg IVPUSH Q8H GE Last Admin: 08/13/19 16:22 Dose: 50 mg Vancomycin HCl (Vancomycin (Pre-Docked)) 1,000 mg in 250 mls @ 166.667 mls/hr IVPB Q24H GE; Protocol Last Admin: 08/13/19 16:22 Dose: 166.667 mls/hr Piperacillin Sod/Tazobactam (Sod 3.375 gm/ Dextrose) 50 mls @ 100 mls/hr IVPB Q8H-IV GE; Protocol Last Admin: 08/13/19 11:06 Dose: 100 mls/hr Potassium Chloride/Dextrose/Sod Cl (D5-1/2ns+20 Meq Kcl -) 20 meq in 1,000 mls @ 75 mls/hr IV ASDIR GE Last Admin: 08/13/19 10:57 Dose: 75 mls/hr Levetiracetam (Keppra Injection -) 1,500 mg IVPB BID [facility] Last Admin: 08/13/19 11:03 Dose: 1,500 mg Lorazepam (Ativan Injection -) 1 mg IVPUSH Q6H PRN PRN Reason: ANXIETY Last Admin: 08/13/19 14:37 Dose: 1 mg Metoprolol Tartrate (Lopressor Injection -) 5 mg IVPUSH Q8H PRN PRN Reason: HYPERTENSION Last Admin: 08/13/19 11:48 Dose: 5 mg Phenytoin Sodium (Dilantin Injection -) 100 mg IVPB Q8H [facility] Last Admin: 08/13/19 14:41 Dose: 100 mg Silver Sulfadiazine (Silvadene -) 1 applic TP DAILY [facility] Last Admin: 08/13/19 11:21 Dose: 1 applic Tamsulosin HCl (Flomax -) 0.8 mg PO DAILY@0830 [facility] Last Admin: 08/13/19 11:01 Dose: Not Given Valproate Sodium (Depacon Injection -) 500 mg IVPB BID [facility] Last Admin: 08/13/19 11:55 Dose: 500 mg imp/reccd seizures- brain mets- antiepileptics started,steroids started leukocytosis- suspected aspiration PNA- continue vanco/zosyn, history of nares MRSA colonization- trending down, day #4 acute COPD exacerbation with hypercapnia/hypoxia resp failure esophageal cancer with brain mets
[2019-08-14] MEDS: HYDROCORTISONE SOD SUCCINATE 100 MG/2 ML VIAL IVPUSH SCH ×3 (00:12→16:53)
[2019-08-14] MEDS: levETIRAcetam 500 MG/5 ML INJECTION VIAL IVPB SCH ×3 (00:12→21:59)
[2019-08-14] MEDS ORDERED: DEXTROSE 5%-WATER - 50 ML IVPB ONE ×3 (03:20→16:46)
[2019-08-14] MEDS ORDERED: PIPERACILLIN/TAZOBACTAM 3.375 GM VIAL IVPB ONE ×3 (03:20→16:46)
[2019-08-14] MEDS: PHENYTOIN SODIUM 100 MG/2 ML VIAL IVPB SCH ×3 (06:50→21:58)
[2019-08-14] MEDS: ALBUTEROL SO4 2.5/IPRATROPIUM 0.5 INH SOL 3 ML VIAL.NEB. NEB SCH ×4 (07:44→21:00)
[2019-08-14 07:49] LABS: BASO % 0.1 % (0-2.0); HEMATOCRIT 37.8 % (35.4-49); HEMOGLOBIN 12.2 GM/dL (11.7-16.9); LYMPH % 4.3 % (8-40); MCH 27.6 pg (25.7-33.7); MCHC 32.4 g/dl (32.0-35.9); MEAN CELL VOLUME 85.2 fl (80-96); MEAN PLT VOLUME 8.4 fl (7.5-11.1); MONO % 6.4 % (3.8-10.2); NEUT % 89.2 % (42.8-82.8); PLATELET COUNT 234 K/MM3 (134-434); RBC 4.43 M/mm3 (4.00-5.60); RDW 19.7 % (11.9-15.9); WHITE BLOOD COUNT 12.7 K/mm3 (4.0-10.0)
[2019-08-14] MEDS: METOPROLOL TARTRATE 5 MG/5 ML VIAL IVPUSH PRN (08:22)
[2019-08-14 08:27] LABS: ALBUMIN 2.3 g/dl (3.4-5.0); BILIRUBIN,TOTAL 0.6 mg/dL (0.2-1); BLOOD UREA NITROGEN 11.3 mg/dL (7-18); CALCIUM 8.3 mg/dL (8.5-10.1); CREATININE 0.3 mg/dL (0.55-1.3); TOT PROT 5.4 g/dl (6.4-8.2)
--- NOTE | 2019-08-14 09:46 | PN ---
Progress Note, Physician Chief Complaint: Patient seen and examined at the bedside, awake, follow simple commands, does not appear to be in any acute distress. History of Present Illness: This 74 yr old w/m with hx of COPD, atrial fibrillation with RVR, hypertension, dementia, and stage 4 esophageal cancer admitted via ER with an acute respiatory failure with hypoxia and hypercapnia, and an acute exacerbation of COPD. 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 - Current Medication List Current Medications: Active Medications Albuterol Sulfate (Ventolin 0.083% Nebulizer Soln -) 1 amp NEB Q4H PRN PRN Reason: SHORT OF BREATH/WHEEZING Last Admin: 08/09/19 21:30 Dose: 1 amp Albuterol/Ipratropium (Duoneb -) 1 amp NEB RQID GE Last Admin: 08/14/19 07:44 Dose: 1 amp Diltiazem HCl (Cardizem Injection -) 5 mg IVPUSH Q8H PRN PRN Reason: TACHYCARDIA Last Admin: 08/13/19 14:39 Dose: 5 mg Hydrocortisone Sodium Succinate (Solu-Cortef -) 50 mg IVPUSH Q8H GE Last Admin: 08/14/19 00:12 Dose: 50 mg Vancomycin HCl (Vancomycin (Pre-Docked)) 1,000 mg in 250 mls @ 166.667 mls/hr IVPB Q24H GE; Protocol Last Admin: 08/13/19 16:22 Dose: 166.667 mls/hr Piperacillin Sod/Tazobactam (Sod 3.375 gm/ Dextrose) 50 mls @ 100 mls/hr IVPB Q8H-IV GE; Protocol Last Admin: 08/13/19 17:52 Dose: 100 mls/hr Potassium Chloride/Dextrose/Sod Cl (D5-1/2ns+20 Meq Kcl -) 20 meq in 1,000 mls @ 75 mls/hr IV ASDIR GE Last Admin: 08/13/19 10:57 Dose: 75 mls/hr Levetiracetam (Keppra Injection -) 1,500 mg IVPB BID GE Last Admin: 08/14/19 00:12 Dose: 1,500 mg Lorazepam (Ativan Injection -) 1 mg IVPUSH Q6H PRN PRN Reason: ANXIETY Last Admin: 08/13/19 14:37 Dose: 1 mg Metoprolol Tartrate (Lopressor Injection -) 5 mg IVPUSH Q8H PRN PRN Reason: HYPERTENSION Last Admin: 08/14/19 08:22 Dose: 5 mg Phenytoin Sodium (Dilantin Injection -) 100 mg IVPB Q8H [facility] Last Admin: 08/14/19 06:50 Dose: 100 mg Silver Sulfadiazine (Silvadene -) 1 applic TP DAILY [facility] Last Admin: 08/13/19 11:21 Dose: 1 applic Tamsulosin HCl (Flomax -) 0.8 mg PO DAILY@0830 [facility] Last Admin: 08/13/19 11:01 Dose: Not Given Valproate Sodium (Depacon Injection -) 500 mg IVPB BID [facility] Last Admin: 08/13/19 22:07 Dose: 500 mg - Objective Vital Signs: Vital Signs Temperature 98.4 F 08/14/19 02:12 Pulse Rate 152 H 08/14/19 08:22 Respiratory Rate 22 H 08/14/19 02:12 Blood Pressure 111/67 08/14/19 08:22 O2 Sat by Pulse Oximetry (%) 99 08/14/19 07:43 Constitutional: Yes: No Distress, Calm, Cachectic Eyes: Yes: Conjunctiva Clear, EOM Intact HENT: Yes: Atraumatic, Normocephalic Neck: Yes: Supple, Trachea Midline Cardiovascular: Yes: Tachycardia, Pulse Irregular Respiratory: Yes: Diminished, On Venti-Mask (50% oxygen), Orthopnea, SOB, SOB on Exertion Gastrointestinal: Yes: Normal Bowel Sounds, Soft ...Rectal Exam: Yes: Deferred Genitourinary: Yes: WNL Breast(s): Yes: WNL Musculoskeletal: Yes: Muscle Weakness Extremities: Yes: Other (generalized muscle weakness of all extremities) Edema: No Peripheral Pulses WNL: Yes Peripheral Pulses: Left Radial: 3+, Right Radial: 3+, Left Doralis Pedis: 2+, Right Dorsalis Pedis: 2+, Left Femoral: 3+, Right Femoral: 3+ Integumentary: Yes: Pressure Ulcer (buttocks and both lower legs stage 2) Wound/Incision: Yes: Open to air, Dressing Dry and Intact Neurological: Yes: Alert, Seizure, Unsteady Gait, Weakness ...Motor Strength: LUE (generalized muscle weakness of all extremities) Psychiatric: Yes: Alert Labs: CBC, BMP 08/14/19 05:55 08/14/19 05:55 INR, PTT INR 0.97 (0.83-1.09) 08/06/19 20:20 - ....Imaging Other: Report Reviewed (Lab data reviewed, ID note read and appreciated) Problem List - Problems (1) COPD exacerbation Code(s): J44.1 - CHRONIC OBSTRUCTIVE PULMONARY DISEASE W (ACUTE) EXACERBATION (2) Acute respiratory failure with hypoxia and hypercapnia Code(s): J96.01 - ACUTE RESPIRATORY FAILURE WITH HYPOXIA; J96.02 - ACUTE RESPIRATORY FAILURE WITH HYPERCAPNIA (3) Adenocarcinoma of esophagus, stage 4 Code(s): C15.9 - MALIGNANT NEOPLASM OF ESOPHAGUS, UNSPECIFIED (4) Anemia Code(s): D64.9 - ANEMIA, UNSPECIFIED (5) Atelectasis of both lungs Code(s): J98.11 - ATELECTASIS (6) Tachycardia Code(s): R00.0 - TACHYCARDIA, UNSPECIFIED (7) Acute bronchitis Code(s): J20.9 - ACUTE BRONCHITIS, UNSPECIFIED (8) Focal motor seizure Code(s): G40.109 - LOCAL-REL SYMPTC EPI W SIMP PRT SEIZ,NOT NTRCT, W/O STAT EPI (9) Hypocalcemia Code(s): E83.51 - HYPOCALCEMIA (10) Hypoalbuminemia Code(s): E88.09 - OTH DISORDERS OF PLASMA-PROTEIN METABOLISM, NEC (11) Hypoproteinemia Code(s): E77.8 - OTHER DISORDERS OF GLYCOPROTEIN METABOLISM (12) Neutrophilic leukocytosis Code(s): D72.9 - DISORDER OF WHITE BLOOD CELLS, UNSPECIFIED (13) Decubitus ulcer of sacral region, stage 2 Code(s): L89.152 - PRESSURE ULCER OF SACRAL REGION, STAGE 2 (14) Decubitus ulcer of left leg, stage 2 Code(s): L89.892 - PRESSURE ULCER OF OTHER SITE, STAGE 2 (15) Decubitus ulcer of left buttock, stage 2 Code(s): L89.322 - PRESSURE ULCER OF LEFT BUTTOCK, STAGE 2 (16) Decubitus ulcer of right buttock, stage 2 Code(s): L89.312 - PRESSURE ULCER OF RIGHT BUTTOCK, STAGE 2 (17) Decubitus ulcer of right leg, stage 2 Code(s): L89.892 - PRESSURE ULCER OF OTHER SITE, STAGE 2 Assessment/Plan Assessment/plan: acute respiratory failure with hypoxia and hypercapnia, acute exacerbation of COPD, acute recurrent right focal seizures secondary to brain mets from stage 4 esophageal cancer; IV fluids, IV Piperacillin and IV Vancomycin for treatment of aspiration pneumonia, SCD'S for DVT prophylaxis, IV Hydrocortisone to alleviate cerebral edema and exacerbation of COPD, topical silver sulfadiazine for decubiti of buttocks and lower legs.
[2019-08-14] MEDS ORDERED: PT OWN MED DRAWER 7, Y5N ONE ×3 (10:08→21:08)
[2019-08-14] MEDS: D5-1/2NS+20 MEQ KCL - 20 MEQ/1,000 ML INFUS.BAG IV SCH ×2 (10:20→10:24)
[2019-08-14] MEDS: PIPERACILLIN/TAZOB 3.375 GM 3.375 GM in DEXTROSE 5%-WATER - 50 ML IVPB SCH ×2 (10:22→17:04)
[2019-08-14] MEDS: TAMSULOSIN HCL 0.4 MG CAP PO SCH (10:23)
[2019-08-14] MEDS: VALPROATE SODIUM 500 MG/5 ML VIAL IVPB SCH ×2 (10:24→21:59)
[2019-08-14] MEDS: SILVER SULFADIAZINE 1% TOP CREAM 50 GM JAR TP SCH (10:25)
[2019-08-14] MEDS ORDERED: ACETAMINOPHEN 1000 MG/100 ML VIAL (NON FORMULARY) IVPB ONE (12:00)
[2019-08-14] MEDS: VANCOMYCIN 1 GRAM (PRE-DOCKED) 1,000 MG/250 ML BAG IVPB SCH (15:08)
--- NOTE | 2019-08-14 15:29 | PN ---
Progress Note (short form) - Note Progress Note: PULMONARY More awake today. Off BiPAP. Vital Signs Period Temp Pulse Resp BP Sys/Cleaning Pulse Ox Last 24 Hr 98.4 F-100.3 F 146-154 22-24 111-139/67-87 95-100 Gen: more alert Heart: irregular Lung: decreased breath sounds at the bases Abd: soft, nontender Ext: no edema CBC, BMP 08/14/19 05:55 08/14/19 05:55 Active Medications Albuterol Sulfate (Ventolin 0.083% Nebulizer Soln -) 1 amp NEB Q4H PRN PRN Reason: SHORT OF BREATH/WHEEZING Last Admin: 08/09/19 21:30 Dose: 1 amp Albuterol/Ipratropium (Duoneb -) 1 amp NEB RQID GE Last Admin: 08/14/19 12:03 Dose: 1 amp Diltiazem HCl (Cardizem Injection -) 5 mg IVPUSH Q8H PRN PRN Reason: TACHYCARDIA Last Admin: 08/13/19 14:39 Dose: 5 mg Hydrocortisone Sodium Succinate (Solu-Cortef -) 50 mg IVPUSH Q8H GE Last Admin: 08/14/19 10:23 Dose: 50 mg Vancomycin HCl (Vancomycin (Pre-Docked)) 1,000 mg in 250 mls @ 166.667 mls/hr IVPB Q24H GE; Protocol Last Admin: 08/14/19 15:08 Dose: 166.667 mls/hr Piperacillin Sod/Tazobactam (Sod 3.375 gm/ Dextrose) 50 mls @ 100 mls/hr IVPB Q8H-IV GE; Protocol Last Admin: 08/14/19 10:22 Dose: 100 mls/hr Potassium Chloride/Dextrose/Sod Cl (D5-1/2ns+20 Meq Kcl -) 20 meq in 1,000 mls @ 75 mls/hr IV ASDIR GE Last Admin: 08/14/19 10:24 Dose: 75 mls/hr Levetiracetam (Keppra Injection -) 1,500 mg IVPB BID GE Last Admin: 08/14/19 10:23 Dose: 1,500 mg Lorazepam (Ativan Injection -) 1 mg IVPUSH Q6H PRN PRN Reason: ANXIETY Last Admin: 08/13/19 14:37 Dose: 1 mg Metoprolol Tartrate (Lopressor Injection -) 5 mg IVPUSH Q8H PRN PRN Reason: HYPERTENSION Last Admin: 08/14/19 08:22 Dose: 5 mg Phenytoin Sodium (Dilantin Injection -) 100 mg IVPB Q8H [facility] Last Admin: 08/14/19 13:12 Dose: 100 mg Silver Sulfadiazine (Silvadene -) 1 applic TP DAILY [facility] Last Admin: 08/14/19 10:25 Dose: 1 applic Tamsulosin HCl (Flomax -) 0.8 mg PO DAILY@0830 [facility] Last Admin: 08/14/19 10:23 Dose: Not Given Valproate Sodium (Depacon Injection -) 500 mg IVPB BID [facility] Last Admin: 08/14/19 10:24 Dose: 500 mg A/P Acute on Chronic Hypoxic and Hypercapneic Respiratory Failure Acute COPD Exacerbation Pneumonia likely Aspiration Seizures Atrial Fibrillation with RVR Stage 4 Esophageal Ca with brain mets - continue antibiotics - continue antiepileptics - on hydrocortisone - O2 to keep SpO2 >90% - BiPAP as needed - aspiration precautions - rate control - poor overall prognosis, recommend palliative care
[2019-08-14 16:44] LABS: EPI CELLS 2.4 /HPF (0-5/HPF); HYALINE CASTS 121 /lpf (0-8); PH,URINE 5.5 (5.0-8.0); URINE APPEARANCE TURBID; URINE BACTERIA 15.5 /hpf (NEGATIVE); URINE BILIRUBIN NEGATIVE (NEGATIVE); URINE COLOR YELLOW; URINE GLUCOSE (UA) NEGATIVE (NEGATIVE); URINE KETONE TRACE (NEGATIVE); URINE LEUK ESTERASE 3+ (NEGATIVE); URINE NITRITE NEGATIVE (NEGATIVE); URINE PROTEIN TRACE (NEGATIVE); URINE WBC 820 /hpf (0-5)
[2019-08-14 19:34] LABS: YEAST MODERATE (NEGATIVE)
[2019-08-15] MEDS: HYDROCORTISONE SOD SUCCINATE 100 MG/2 ML VIAL IVPUSH SCH ×3 (01:15→16:09)
[2019-08-15] MEDS ORDERED: PIPERACILLIN/TAZOBACTAM 3.375 GM VIAL IVPB ONE ×3 (02:08→16:04)
[2019-08-15] MEDS ORDERED: DEXTROSE 5%-WATER - 50 ML IVPB ONE ×3 (02:09→16:04)
[2019-08-15] MEDS: PIPERACILLIN/TAZOB 3.375 GM 3.375 GM in DEXTROSE 5%-WATER - 50 ML IVPB SCH ×3 (02:48→17:03)
[2019-08-15] MEDS: PHENYTOIN SODIUM 100 MG/2 ML VIAL IVPB SCH ×3 (06:51→22:08)
[2019-08-15] MEDS: LORazepam 2 MG/ML SDV VIAL IVPUSH PRN ×2 (07:18→17:02)
[2019-08-15 07:26] LABS: BASO % 0.1 % (0-2.0); HEMATOCRIT 36.9 % (35.4-49); HEMOGLOBIN 12.1 GM/dL (11.7-16.9); LYMPH % 4.4 % (8-40); MCHC 32.9 g/dl (32.0-35.9); MEAN CELL VOLUME 85.1 fl (80-96); MEAN PLT VOLUME 8.4 fl (7.5-11.1); MONO % 8.1 % (3.8-10.2); NEUT % 87.4 % (42.8-82.8); PLATELET COUNT 255 K/MM3 (134-434); RBC 4.34 M/mm3 (4.00-5.60); RDW 20.1 % (11.9-15.9); WHITE BLOOD COUNT 10.5 K/mm3 (4.0-10.0)
[2019-08-15] MEDS: ALBUTEROL SO4 2.5/IPRATROPIUM 0.5 INH SOL 3 ML VIAL.NEB. NEB SCH ×4 (07:41→20:47)
[2019-08-15 07:42] LABS: ALBUMIN 2.3 g/dl (3.4-5.0); BILIRUBIN,TOTAL 0.5 mg/dL (0.2-1); BLOOD UREA NITROGEN 10.2 mg/dL (7-18); CALCIUM 7.9 mg/dL (8.5-10.1); CREATININE 0.3 mg/dL (0.55-1.3); POTASSIUM 3.7 mmol/L (3.5-5.1)
[2019-08-15] MEDS: METOPROLOL TARTRATE 5 MG/5 ML VIAL IVPUSH PRN ×2 (09:00→16:52)
[2019-08-15] MEDS: levETIRAcetam 500 MG/5 ML INJECTION VIAL IVPB SCH ×2 (10:18→22:09)
[2019-08-15] MEDS: TAMSULOSIN HCL 0.4 MG CAP PO SCH (10:19)
[2019-08-15] MEDS: VALPROATE SODIUM 500 MG/5 ML VIAL IVPB SCH ×2 (10:20→22:09)
[2019-08-15] MEDS: D5-1/2NS+20 MEQ KCL - 20 MEQ/1,000 ML INFUS.BAG IV SCH (10:21)
[2019-08-15] MEDS: SILVER SULFADIAZINE 1% TOP CREAM 50 GM JAR TP SCH (10:21)
--- NOTE | 2019-08-15 13:34 | PN ---
Progress Note (short form) - Note Progress Note: PULMONARY More awake today but still lethargic. Vital Signs Period Temp Pulse Resp BP Sys/Cleaning Pulse Ox Last 24 Hr 97.5 F-99.8 F 144-156 20-24 117-132/73-93 98-99 Gen: more alert Heart: irregular Lung: decreased breath sounds at the bases Abd: soft, nontender Ext: no edema CBC, BMP 08/15/19 05:50 08/15/19 05:50 Active Medications Albuterol Sulfate (Ventolin 0.083% Nebulizer Soln -) 1 amp NEB Q4H PRN PRN Reason: SHORT OF BREATH/WHEEZING Last Admin: 08/09/19 21:30 Dose: 1 amp Albuterol/Ipratropium (Duoneb -) 1 amp NEB RQID GE Last Admin: 08/15/19 11:59 Dose: 1 amp Diltiazem HCl (Cardizem Injection -) 5 mg IVPUSH Q8H PRN PRN Reason: TACHYCARDIA Last Admin: 08/13/19 14:39 Dose: 5 mg Hydrocortisone Sodium Succinate (Solu-Cortef -) 50 mg IVPUSH Q8H [facility] Last Admin: 08/15/19 10:18 Dose: 50 mg Vancomycin HCl (Vancomycin (Pre-Docked)) 1,000 mg in 250 mls @ 166.667 mls/hr IVPB Q24H GE; Protocol Last Admin: 08/14/19 15:08 Dose: 166.667 mls/hr Piperacillin Sod/Tazobactam (Sod 3.375 gm/ Dextrose) 50 mls @ 100 mls/hr IVPB Q8H-IV GE; Protocol Last Admin: 08/15/19 10:19 Dose: 100 mls/hr Potassium Chloride/Dextrose/Sod Cl (D5-1/2ns+20 Meq Kcl -) 20 meq in 1,000 mls @ 75 mls/hr IV ASDIR GE Last Admin: 08/15/19 10:21 Dose: 75 mls/hr Levetiracetam (Keppra Injection -) 1,500 mg IVPB BID [facility] Last Admin: 08/15/19 10:18 Dose: 1,500 mg Lorazepam (Ativan Injection -) 1 mg IVPUSH Q6H PRN PRN Reason: ANXIETY Last Admin: 08/15/19 07:18 Dose: 1 mg Metoprolol Tartrate (Lopressor Injection -) 5 mg IVPUSH Q8H PRN PRN Reason: HYPERTENSION Last Admin: 08/14/19 08:22 Dose: 5 mg Phenytoin Sodium (Dilantin Injection -) 100 mg IVPB Q8H [facility] Last Admin: 08/15/19 13:24 Dose: 100 mg Silver Sulfadiazine (Silvadene -) 1 applic TP DAILY [facility] Last Admin: 08/15/19 10:21 Dose: 1 applic Tamsulosin HCl (Flomax -) 0.8 mg PO DAILY@0830 [facility] Last Admin: 08/15/19 10:19 Dose: Not Given Valproate Sodium (Depacon Injection -) 500 mg IVPB BID [facility] Last Admin: 08/15/19 10:20 Dose: 500 mg A/P Acute on Chronic Hypoxic and Hypercapneic Respiratory Failure Acute COPD Exacerbation Pneumonia likely Aspiration Seizures Atrial Fibrillation with RVR Stage 4 Esophageal Ca with brain mets - continue antibiotics - continue antiepileptics - on hydrocortisone - O2 to keep SpO2 >90% - BiPAP as needed - aspiration precautions - rate control - poor overall prognosis, recommend palliative care
[2019-08-15] MEDS ORDERED: PT OWN MED DRAWER 7, Y5N ONE ×2 (14:44→21:14)
[2019-08-15] MEDS: VANCOMYCIN 1 GRAM (PRE-DOCKED) 1,000 MG/250 ML BAG IVPB SCH (16:02)
--- NOTE | 2019-08-15 16:51 | PN ---
Progress Note, Physician Chief Complaint: Patient seen and examined at the bedside, less lethargic, more alert today, on oxygen 3L/min via nasal cannula maintaining oxygen saturation at 98%. - Current Medication List Current Medications: Active Medications Albuterol Sulfate (Ventolin 0.083% Nebulizer Soln -) 1 amp NEB Q4H PRN PRN Reason: SHORT OF BREATH/WHEEZING Last Admin: 08/09/19 21:30 Dose: 1 amp Albuterol/Ipratropium (Duoneb -) 1 amp NEB RQID GE Last Admin: 08/15/19 16:05 Dose: 1 amp Diltiazem HCl (Cardizem Injection -) 5 mg IVPUSH Q8H PRN PRN Reason: TACHYCARDIA Last Admin: 08/13/19 14:39 Dose: 5 mg Hydrocortisone Sodium Succinate (Solu-Cortef -) 50 mg IVPUSH Q8H GE Last Admin: 08/15/19 16:09 Dose: 50 mg Vancomycin HCl (Vancomycin (Pre-Docked)) 1,000 mg in 250 mls @ 166.667 mls/hr IVPB Q24H GE; Protocol Last Admin: 08/15/19 16:02 Dose: 166.667 mls/hr Piperacillin Sod/Tazobactam (Sod 3.375 gm/ Dextrose) 50 mls @ 100 mls/hr IVPB Q8H-IV GE; Protocol Last Admin: 08/15/19 10:19 Dose: 100 mls/hr Potassium Chloride/Dextrose/Sod Cl (D5-1/2ns+20 Meq Kcl -) 20 meq in 1,000 mls @ 75 mls/hr IV ASDIR GE Last Admin: 08/15/19 10:21 Dose: 75 mls/hr Levetiracetam (Keppra Injection -) 1,500 mg IVPB BID GE Last Admin: 08/15/19 10:18 Dose: 1,500 mg Lorazepam (Ativan Injection -) 1 mg IVPUSH Q6H PRN PRN Reason: ANXIETY Last Admin: 08/15/19 07:18 Dose: 1 mg Metoprolol Tartrate (Lopressor Injection -) 5 mg IVPUSH Q8H PRN PRN Reason: HYPERTENSION Last Admin: 08/15/19 09:00 Dose: 5 mg Phenytoin Sodium (Dilantin Injection -) 100 mg IVPB Q8H [facility] Last Admin: 08/15/19 13:24 Dose: 100 mg Silver Sulfadiazine (Silvadene -) 1 applic TP DAILY [facility] Last Admin: 08/15/19 10:21 Dose: 1 applic Tamsulosin HCl (Flomax -) 0.8 mg PO DAILY@0830 [facility] Last Admin: 08/15/19 10:19 Dose: Not Given Valproate Sodium (Depacon Injection -) 500 mg IVPB BID [facility] Last Admin: 08/15/19 10:20 Dose: 500 mg - Objective Vital Signs: Vital Signs Temperature 98.9 F 08/15/19 13:58 Pulse Rate 155 H 08/15/19 13:58 Respiratory Rate 24 H 08/15/19 13:58 Blood Pressure 132/82 08/15/19 13:58 O2 Sat by Pulse Oximetry (%) 98 08/15/19 16:05 Constitutional: Yes: No Distress, Anxious, Cachectic Eyes: Yes: Conjunctiva Clear, EOM Intact HENT: Yes: Atraumatic, Normocephalic Neck: Yes: Supple, Trachea Midline Cardiovascular: Yes: Tachycardia, Pulse Irregular Respiratory: Yes: Diminished, On Nasal O2, Orthopnea, SOB, SOB on Exertion Gastrointestinal: Yes: Normal Bowel Sounds, Soft ...Rectal Exam: Yes: Deferred Genitourinary: Yes: WNL Breast(s): Yes: WNL Musculoskeletal: Yes: Muscle Weakness Extremities: Yes: Other (generalized muscle weakness) Edema: Yes Edema: LUE: 2+ Peripheral Pulses WNL: Yes Peripheral Pulses: Left Radial: 2+, Right Radial: 2+, Left Doralis Pedis: 2+, Right Dorsalis Pedis: 2+, Left Femoral: 2+, Right Femoral: 2+ Integumentary: Yes: Pressure Ulcer (Buttocks and both lower legs), Skin Tear ( LUE) Neurological: Yes: Alert, Confusion, Seizure, Unsteady Gait, Weakness ...Motor Strength: LUE (generalized muscle weakness of all extremities) Psychiatric: Yes: Alert Labs: CBC, BMP 08/15/19 05:50 08/15/19 05:50 INR, PTT INR 0.97 (0.83-1.09) 08/06/19 20:20 - ....Imaging Other: Report Reviewed (Lab data reviewed) Problem List - Problems (1) COPD exacerbation Code(s): J44.1 - CHRONIC OBSTRUCTIVE PULMONARY DISEASE W (ACUTE) EXACERBATION (2) Acute respiratory failure with hypoxia and hypercapnia Code(s): J96.01 - ACUTE RESPIRATORY FAILURE WITH HYPOXIA; J96.02 - ACUTE RESPIRATORY FAILURE WITH HYPERCAPNIA (3) Adenocarcinoma of esophagus, stage 4 Code(s): C15.9 - MALIGNANT NEOPLASM OF ESOPHAGUS, UNSPECIFIED (4) Anemia Code(s): D64.9 - ANEMIA, UNSPECIFIED (5) Atelectasis of both lungs Code(s): J98.11 - ATELECTASIS (6) Tachycardia Code(s): R00.0 - TACHYCARDIA, UNSPECIFIED (7) Acute bronchitis Code(s): J20.9 - ACUTE BRONCHITIS, UNSPECIFIED (8) Focal motor seizure Code(s): G40.109 - LOCAL-REL SYMPTC EPI W SIMP PRT SEIZ,NOT NTRCT, W/O STAT EPI (9) Hypocalcemia Code(s): E83.51 - HYPOCALCEMIA (10) Hypoalbuminemia Code(s): E88.09 - OTH DISORDERS OF PLASMA-PROTEIN METABOLISM, NEC (11) Hypoproteinemia Code(s): E77.8 - OTHER DISORDERS OF GLYCOPROTEIN METABOLISM (12) Neutrophilic leukocytosis Code(s): D72.9 - DISORDER OF WHITE BLOOD CELLS, UNSPECIFIED (13) Decubitus ulcer of sacral region, stage 2 Code(s): L89.152 - PRESSURE ULCER OF SACRAL REGION, STAGE 2 (14) Decubitus ulcer of left leg, stage 2 Code(s): L89.892 - PRESSURE ULCER OF OTHER SITE, STAGE 2 (15) Decubitus ulcer of left buttock, stage 2 Code(s): L89.322 - PRESSURE ULCER OF LEFT BUTTOCK, STAGE 2 (16) Decubitus ulcer of right buttock, stage 2 Code(s): L89.312 - PRESSURE ULCER OF RIGHT BUTTOCK, STAGE 2 (17) Decubitus ulcer of right leg, stage 2 Code(s): L89.892 - PRESSURE ULCER OF OTHER SITE, STAGE 2 Assessment/Plan Assessment/plan: acute respiratory failure with hypoxia and hypercapnia, acute exacerbation of COPD, acute recurrent right focal seizures; IV fluids, IV Piperacillin and IV Vancomcin for treatment of acute sepsis; IV Hydrocortisone for treatment of acute exacerbation of COPD and cerebral edema; IV Dilantin, IV Keppra, and IV Ativan for control of seizures; IV Ativan prn for anxiety; IV Diltiazem and IV Metoprolol for heart rate control; oxygen 3L/min via nasal cannula to maintain oxygen saturation above 90%, SCD'S for DVT prophylaxis.
[2019-08-15] MEDS: dilTIAZem HCL 50 MG/10 ML - 10 ML VIAL IVPUSH PRN (22:11)
[2019-08-16] MEDS: HYDROCORTISONE SOD SUCCINATE 100 MG/2 ML VIAL IVPUSH SCH ×3 (00:06→16:40)
[2019-08-16] MEDS ORDERED: DEXTROSE 5%-WATER - 50 ML IVPB ONE ×3 (01:13→16:32)
[2019-08-16] MEDS ORDERED: PIPERACILLIN/TAZOBACTAM 3.375 GM VIAL IVPB ONE ×3 (01:13→16:31)
[2019-08-16] MEDS: PIPERACILLIN/TAZOB 3.375 GM 3.375 GM in DEXTROSE 5%-WATER - 50 ML IVPB SCH ×3 (01:21→17:19)
[2019-08-16] MEDS: PHENYTOIN SODIUM 100 MG/2 ML VIAL IVPB SCH ×3 (05:20→21:52)
[2019-08-16] MEDS: dilTIAZem HCL 50 MG/10 ML - 10 ML VIAL IVPUSH PRN (06:42)
[2019-08-16 07:16] LABS: BASO % 0.1 % (0-2.0); HEMATOCRIT 39.4 % (35.4-49); HEMOGLOBIN 12.7 GM/dL (11.7-16.9); LYMPH % 4.1 % (8-40); MCH 27.7 pg (25.7-33.7); MCHC 32.3 g/dl (32.0-35.9); MEAN CELL VOLUME 85.8 fl (80-96); MEAN PLT VOLUME 8.7 fl (7.5-11.1); MONO % 8.2 % (3.8-10.2); NEUT % 87.6 % (42.8-82.8); PLATELET COUNT 321 K/MM3 (134-434); RBC 4.59 M/mm3 (4.00-5.60); RDW 20.1 % (11.9-15.9); WHITE BLOOD COUNT 14.9 K/mm3 (4.0-10.0)
[2019-08-16 07:21] LABS: ALBUMIN 2.4 g/dl (3.4-5.0); BILIRUBIN,TOTAL 0.5 mg/dL (0.2-1); CALCIUM 8.3 mg/dL (8.5-10.1); CREATININE 0.4 mg/dL (0.55-1.3); POTASSIUM 4.3 mmol/L (3.5-5.1); TOT PROT 5.6 g/dl (6.4-8.2)
[2019-08-16] MEDS: ALBUTEROL SO4 2.5/IPRATROPIUM 0.5 INH SOL 3 ML VIAL.NEB. NEB SCH ×4 (08:28→20:28)
[2019-08-16] MEDS ORDERED: PT OWN MED DRAWER 7, Y5N ONE (10:21)
[2019-08-16] MEDS: levETIRAcetam 500 MG/5 ML INJECTION VIAL IVPB SCH ×2 (10:34→21:51)
[2019-08-16] MEDS: SILVER SULFADIAZINE 1% TOP CREAM 50 GM JAR TP SCH (10:36)
[2019-08-16] MEDS: TAMSULOSIN HCL 0.4 MG CAP PO SCH (10:36)
[2019-08-16] MEDS: VALPROATE SODIUM 500 MG/5 ML VIAL IVPB SCH ×2 (10:36→21:51)
[2019-08-16] MEDS: D5-1/2NS+20 MEQ KCL - 20 MEQ/1,000 ML INFUS.BAG IV SCH (10:37)
[2019-08-16] MEDS: METOPROLOL TARTRATE 5 MG/5 ML VIAL IVPUSH PRN (10:43)
[2019-08-16] MEDS: LORazepam 2 MG/ML SDV VIAL IVPUSH PRN (10:46)
--- NOTE | 2019-08-16 11:30 | PN ---
Progress Note (short form) - Note Progress Note: Drowsy but arousable on NIPPV support. Able to follow some simple commands. No fevers recorded. Tachycardia, AFib / AFlutter. Intake & Output 08/13/19 08/14/19 08/15/19 08/16/19 23:59 23:59 23:59 23:59 Intake Total 1986 1700 3100 1200 Output Total 1200 400 200 Balance 2735 646 3780 1000 Last Vital Signs Temp Pulse Resp BP Pulse Ox 97.7 F 156 H 19 114/89 97 08/16/19 05:27 08/16/19 10:43 08/16/19 05:27 08/16/19 10:43 08/15/19 21:00 Active Medications Albuterol Sulfate (Ventolin 0.083% Nebulizer Soln -) 1 amp NEB Q4H PRN PRN Reason: SHORT OF BREATH/WHEEZING Last Admin: 08/09/19 21:30 Dose: 1 amp Albuterol/Ipratropium (Duoneb -) 1 amp NEB RQID EG Last Admin: 08/16/19 08:28 Dose: 1 amp Diltiazem HCl (Cardizem Injection -) 5 mg IVPUSH Q8H PRN PRN Reason: TACHYCARDIA Last Admin: 08/16/19 06:42 Dose: 5 mg Hydrocortisone Sodium Succinate (Solu-Cortef -) 50 mg IVPUSH Q8H [facility] Last Admin: 08/16/19 10:36 Dose: 50 mg Vancomycin HCl (Vancomycin (Pre-Docked)) 1,000 mg in 250 mls @ 166.667 mls/hr IVPB Q24H [facility]; Protocol Last Admin: 08/15/19 16:02 Dose: 166.667 mls/hr Piperacillin Sod/Tazobactam (Sod 3.375 gm/ Dextrose) 50 mls @ 100 mls/hr IVPB Q8H-IV GE; Protocol Last Admin: 08/16/19 10:34 Dose: 100 mls/hr Potassium Chloride/Dextrose/Sod Cl (D5-1/2ns+20 Meq Kcl -) 20 meq in 1,000 mls @ 75 mls/hr IV ASDIR GE Last Admin: 08/16/19 10:37 Dose: 75 mls/hr Levetiracetam (Keppra Injection -) 1,500 mg IVPB BID GE Last Admin: 08/16/19 10:34 Dose: 1,500 mg Lorazepam (Ativan Injection -) 1 mg IVPUSH Q6H PRN PRN Reason: ANXIETY Last Admin: 08/16/19 10:46 Dose: 1 mg Metoprolol Tartrate (Lopressor Injection -) 5 mg IVPUSH Q6H PRN PRN Reason: HYPERTENSION Last Admin: 08/16/19 10:43 Dose: 5 mg Phenytoin Sodium (Dilantin Injection -) 100 mg IVPB Q8H [facility] Last Admin: 08/16/19 05:20 Dose: 100 mg Silver Sulfadiazine (Silvadene -) 1 applic TP DAILY [facility] Last Admin: 08/16/19 10:36 Dose: 1 applic Tamsulosin HCl (Flomax -) 0.8 mg PO DAILY@0830 [facility] Last Admin: 08/16/19 10:36 Dose: Not Given Valproate Sodium (Depacon Injection -) 500 mg IVPB BID [facility] Last Admin: 08/16/19 10:36 Dose: 500 mg Gen: Drowsy on NIPPV support Heart: irregular Lung: Bilateral rhonchi, decreased breath sounds at the bases Abd: soft, nontender Ext: no edema Laboratory Results - last 24 hr 08/16/19 08/16/19 05:10 05:10 WBC 14.9 H RBC 4.59 Hgb 12.7 Hct 39.4 MCV 85.8 MCH 27.7 MCHC 32.3 RDW 20.1 H Plt Count 321 D MPV 8.7 Absolute Neuts (auto) 13.1 H Neutrophils % 87.6 H Lymphocytes % 4.1 L Monocytes % 8.2 Eosinophils % 0.0 Basophils % 0.1 Nucleated RBC % 0 Sodium 139 Potassium 4.3 Chloride 100 Carbon Dioxide 34 H Anion Gap 6 L BUN 14.0 Creatinine 0.4 L Est GFR (CKD-EPI)AfAm 133.72 Est GFR (CKD-EPI)NonAf 115.37 Random Glucose 125 H Calcium 8.3 L Total Bilirubin 0.5 AST 51 H ALT 15 Alkaline Phosphatase 100 Total Protein 5.6 L Albumin 2.4 L A/P Acute on Chronic Hypoxic and Hypercapneic Respiratory Failure Acute COPD Exacerbation Pneumonia likely Aspiration Seizures Atrial Fibrillation with RVR 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
--- NOTE | 2019-08-16 11:51 | PN ---
Progress Note, Physician Chief Complaint: Patient seen and exeamined at the bedside, no labored breathing at present, tachycardic, intermittently dyspneic. History of Present Illness: This 74 yr old w/m with hx of COPD, atrial fibrillation with rapid ventricular response, HTN, dementia, and stage 4 esophageal cancer admitted via ER with acute respiratory failure with hypoxia and hypercapnia, and acute exacerbation of COPD. During hospital stay patient was noted to have acute recurrent right focal seizures secondary to distant mets from stage 4 esophageal cancer. - Current Medication List Current Medications: Active Medications Albuterol Sulfate (Ventolin 0.083% Nebulizer Soln -) 1 amp NEB Q4H PRN PRN Reason: SHORT OF BREATH/WHEEZING Last Admin: 08/09/19 21:30 Dose: 1 amp Albuterol/Ipratropium (Duoneb -) 1 amp NEB RQID GE Last Admin: 08/16/19 08:28 Dose: 1 amp Diltiazem HCl (Cardizem Injection -) 5 mg IVPUSH Q8H PRN PRN Reason: TACHYCARDIA Last Admin: 08/16/19 06:42 Dose: 5 mg Hydrocortisone Sodium Succinate (Solu-Cortef -) 50 mg IVPUSH Q8H [facility] Last Admin: 08/16/19 10:36 Dose: 50 mg Vancomycin HCl (Vancomycin (Pre-Docked)) 1,000 mg in 250 mls @ 166.667 mls/hr IVPB Q24H [facility]; Protocol Last Admin: 08/15/19 16:02 Dose: 166.667 mls/hr Piperacillin Sod/Tazobactam (Sod 3.375 gm/ Dextrose) 50 mls @ 100 mls/hr IVPB Q8H-IV GE; Protocol Last Admin: 08/16/19 10:34 Dose: 100 mls/hr Potassium Chloride/Dextrose/Sod Cl (D5-1/2ns+20 Meq Kcl -) 20 meq in 1,000 mls @ 75 mls/hr IV ASDIR GE Last Admin: 08/16/19 10:37 Dose: 75 mls/hr Levetiracetam (Keppra Injection -) 1,500 mg IVPB BID EG Last Admin: 08/16/19 10:34 Dose: 1,500 mg Lorazepam (Ativan Injection -) 1 mg IVPUSH Q6H PRN PRN Reason: ANXIETY Last Admin: 08/16/19 10:46 Dose: 1 mg Metoprolol Tartrate (Lopressor Injection -) 5 mg IVPUSH Q6H PRN PRN Reason: HYPERTENSION Last Admin: 08/16/19 10:43 Dose: 5 mg Phenytoin Sodium (Dilantin Injection -) 100 mg IVPB Q8H [facility] Last Admin: 08/16/19 05:20 Dose: 100 mg Silver Sulfadiazine (Silvadene -) 1 applic TP DAILY [facility] Last Admin: 08/16/19 10:36 Dose: 1 applic Tamsulosin HCl (Flomax -) 0.8 mg PO DAILY@0830 [facility] Last Admin: 08/16/19 10:36 Dose: Not Given Valproate Sodium (Depacon Injection -) 500 mg IVPB BID [facility] Last Admin: 08/16/19 10:36 Dose: 500 mg - Objective Vital Signs: Vital Signs Temperature 97.7 F 08/16/19 05:27 Pulse Rate 156 H 08/16/19 10:43 Respiratory Rate 19 08/16/19 05:27 Blood Pressure 114/89 08/16/19 10:43 O2 Sat by Pulse Oximetry (%) 97 08/15/19 21:00 Constitutional: Yes: Anxious, Cachectic, Moderate Distress, Other (dyspnea) Eyes: Yes: Conjunctiva Clear, EOM Intact HENT: Yes: Atraumatic, Normocephalic Neck: Yes: Supple, Trachea Midline Cardiovascular: Yes: Tachycardia (rapid atrial fibrillation), Pulse Irregular Respiratory: Yes: Accessory Muscle Use, Cough (productive dark bajwa sputum), Diminished, On Nasal O2, SOB, SOB on Exertion, Tachypnea Gastrointestinal: Yes: Normal Bowel Sounds, Soft ...Rectal Exam: Yes: Deferred Genitourinary: Yes: WNL Breast(s): Yes: WNL Musculoskeletal: Yes: Muscle Weakness Extremities: Yes: Other (generalized muscle weakness) Edema: Yes Edema: LUE: Trace, RUE: Trace Peripheral Pulses WNL: Yes Peripheral Pulses: Left Radial: 2+, Right Radial: 2+, Left Doralis Pedis: 2+, Right Dorsalis Pedis: 2+, Left Femoral: 2+, Right Femoral: 2+ Integumentary: Yes: Pressure Ulcer (Buttocks and lower legs) Neurological: Yes: Alert, Seizure, Unsteady Gait, Weakness ...Motor Strength: LUE (generalized muscle weakness of all extremities) Psychiatric: Yes: Alert Labs: CBC, BMP 08/16/19 05:10 08/16/19 05:10 INR, PTT INR 0.97 (0.83-1.09) 08/06/19 20:20 - ....Imaging Other: Report Reviewed (Lab data reviewed) Problem List - Problems (1) COPD exacerbation Code(s): J44.1 - CHRONIC OBSTRUCTIVE PULMONARY DISEASE W (ACUTE) EXACERBATION (2) Acute respiratory failure with hypoxia and hypercapnia Code(s): J96.01 - ACUTE RESPIRATORY FAILURE WITH HYPOXIA; J96.02 - ACUTE RESPIRATORY FAILURE WITH HYPERCAPNIA (3) Adenocarcinoma of esophagus, stage 4 Code(s): C15.9 - MALIGNANT NEOPLASM OF ESOPHAGUS, UNSPECIFIED (4) Anemia Code(s): D64.9 - ANEMIA, UNSPECIFIED (5) Atelectasis of both lungs Code(s): J98.11 - ATELECTASIS (6) Tachycardia Code(s): R00.0 - TACHYCARDIA, UNSPECIFIED (7) Acute bronchitis Code(s): J20.9 - ACUTE BRONCHITIS, UNSPECIFIED (8) Focal motor seizure Code(s): G40.109 - LOCAL-REL SYMPTC EPI W SIMP PRT SEIZ,NOT NTRCT, W/O STAT EPI (9) Hypocalcemia Code(s): E83.51 - HYPOCALCEMIA (10) Hypoalbuminemia Code(s): E88.09 - OTH DISORDERS OF PLASMA-PROTEIN METABOLISM, NEC (11) Hypoproteinemia Code(s): E77.8 - OTHER DISORDERS OF GLYCOPROTEIN METABOLISM (12) Neutrophilic leukocytosis Code(s): D72.9 - DISORDER OF WHITE BLOOD CELLS, UNSPECIFIED (13) Decubitus ulcer of sacral region, stage 2 Code(s): L89.152 - PRESSURE ULCER OF SACRAL REGION, STAGE 2 (14) Decubitus ulcer of left leg, stage 2 Code(s): L89.892 - PRESSURE ULCER OF OTHER SITE, STAGE 2 (15) Decubitus ulcer of left buttock, stage 2 Code(s): L89.322 - PRESSURE ULCER OF LEFT BUTTOCK, STAGE 2 (16) Decubitus ulcer of right buttock, stage 2 Code(s): L89.312 - PRESSURE ULCER OF RIGHT BUTTOCK, STAGE 2 (17) Decubitus ulcer of right leg, stage 2 Code(s): L89.892 - PRESSURE ULCER OF OTHER SITE, STAGE 2 Assessment/Plan Assessment/plan: acute respiratory failure with hypoxia and hypercapnia, acute exacerbation of COPD, acute recurrent right focal seizures, acute sepsis; IV fluids, IV Piperacillin, and IV Vancomycin for treatment of acute sepsis; IV Hydrocortisone for treatment of exacerbation of COPD and reduction of cerebral edema; IV Dilantin, IV Ativan, and IV Keppra for seizure control; IV morpine for alleviation of dyspnea; IV Diltiazem and IV Metoprolol for rate control.
[2019-08-16] MEDS: MORPHINE SULFATE 2 MG/ML VIAL SQ PRN (13:44)
--- NOTE | 2019-08-16 14:13 | PN ---
Progress Note (short form) - Note Progress Note: 74 year old male history of esophageal cancer, COPD, atrial fibrillation. He was admitted for acute respiratory failure with hyoxia, and hypercapnia. Patient has right sided focal seizure. He do not have known mets or stroke in past. Patinet is able to follow simple command , his focal seizure are much better after iv dilantin and ativan. eeg and ct head results appreciated. Patient continue to have occasional focal seizure specially when provoked. NEUROLOGICAL EXAMINATION opens eye and able to follow simple command there is intermittent mild focal seizure on right side were observed moving all extremity, there is no neck stiffnes vss , neck is supple CT head showed multiple mets in brain eeg showed left hemispheric seizure activity, epileptic discharged and generalized slowling Assessement /Plan right sided recurrent focal seizure, related to mets . Over all prognosis is guarded. focal seizure are improved after iv dilantin, keppra and ativan prn Plan: continue dilantin and keppra, and depakote - ativan prn -Patinet is going to hospic care Thanking you so much Luis Angel Francisco MD
[2019-08-16] MEDS: VANCOMYCIN 1 GRAM (PRE-DOCKED) 1,000 MG/250 ML BAG IVPB SCH (15:06)
[2019-08-17] MEDS: HYDROCORTISONE SOD SUCCINATE 100 MG/2 ML VIAL IVPUSH SCH ×3 (00:30→15:19)
[2019-08-17] MEDS: PHENYTOIN SODIUM 100 MG/2 ML VIAL IVPB SCH ×3 (06:21→22:06)
[2019-08-17 07:17] LABS: BASO % 0.2 % (0-2.0); EOS % 0.1 % (0-4.5); HEMOGLOBIN 11.1 GM/dL (11.7-16.9); LYMPH % 5.6 % (8-40); MCHC 32.8 g/dl (32.0-35.9); MEAN CELL VOLUME 85.3 fl (80-96); MEAN PLT VOLUME 8.4 fl (7.5-11.1); MONO % 8.9 % (3.8-10.2); NEUT % 85.2 % (42.8-82.8); PLATELET COUNT 302 K/MM3 (134-434); RBC 3.98 M/mm3 (4.00-5.60); WHITE BLOOD COUNT 11.5 K/mm3 (4.0-10.0)
[2019-08-17 07:51] LABS: ALBUMIN 2.2 g/dl (3.4-5.0); BILIRUBIN,TOTAL 0.4 mg/dL (0.2-1); BLOOD UREA NITROGEN 12.2 mg/dL (7-18); CREATININE 0.3 mg/dL (0.55-1.3); POTASSIUM 4.3 mmol/L (3.5-5.1); TOT PROT 4.8 g/dl (6.4-8.2)
[2019-08-17] MEDS: ALBUTEROL SO4 2.5/IPRATROPIUM 0.5 INH SOL 3 ML VIAL.NEB. NEB SCH ×2 (08:09→12:01)
[2019-08-17] MEDS: MORPHINE SULFATE 2 MG/ML VIAL SQ PRN (08:26)
[2019-08-17] MEDS: METOPROLOL TARTRATE 5 MG/5 ML VIAL IVPUSH PRN (08:26)
[2019-08-17] MEDS: TAMSULOSIN HCL 0.4 MG CAP PO SCH (08:27)
[2019-08-17] MEDS: VALPROATE SODIUM 500 MG/5 ML VIAL IVPB SCH ×2 (10:01→22:05)
[2019-08-17] MEDS: levETIRAcetam 500 MG/5 ML INJECTION VIAL IVPB SCH ×2 (10:04→22:05)
[2019-08-17] MEDS: D5-1/2NS+20 MEQ KCL - 20 MEQ/1,000 ML INFUS.BAG IV SCH (10:04)
[2019-08-17] MEDS: SILVER SULFADIAZINE 1% TOP CREAM 50 GM JAR TP SCH (10:05)
--- NOTE | 2019-08-17 10:28 | PN ---
Progress Note, Physician Chief Complaint: Patient seen and examined at the bedside, more awake and alert today, no labored breathing, appetite fair. History of Present Illness: This 74 yr old w/m with hx of COPD, atrial fibrillation with rapid ventricular response, HTN, dementia, and stage 4 esophageal carcinoma admitted via ER with acute respiratory failure with hypoxia and hypercapnia, and an acute exacerbation of COPD. During hospital stay patient was noted to have acute recurrent right focal seizures secondary to brain mets from stage 4 esophageal carcinoma. - Current Medication List Current Medications: Active Medications Albuterol Sulfate (Ventolin 0.083% Nebulizer Soln -) 1 amp NEB Q4H PRN PRN Reason: SHORT OF BREATH/WHEEZING Last Admin: 08/09/19 21:30 Dose: 1 amp Albuterol/Ipratropium (Duoneb -) 1 amp NEB RQID GE Last Admin: 08/17/19 08:09 Dose: 1 amp Diltiazem HCl (Cardizem Injection -) 5 mg IVPUSH Q8H PRN PRN Reason: TACHYCARDIA Last Admin: 08/16/19 06:42 Dose: 5 mg Hydrocortisone Sodium Succinate (Solu-Cortef -) 50 mg IVPUSH Q8H [facility] Last Admin: 08/17/19 08:25 Dose: 50 mg Vancomycin HCl (Vancomycin (Pre-Docked)) 1,000 mg in 250 mls @ 166.667 mls/hr IVPB Q24H [facility]; Protocol Last Admin: 08/16/19 15:06 Dose: 166.667 mls/hr Potassium Chloride/Dextrose/Sod Cl (D5-1/2ns+20 Meq Kcl -) 20 meq in 1,000 mls @ 75 mls/hr IV ASDIR GE Last Admin: 08/17/19 10:04 Dose: 75 mls/hr Levetiracetam (Keppra Injection -) 1,500 mg IVPB BID GE Last Admin: 08/17/19 10:04 Dose: 1,500 mg Lorazepam (Ativan Injection -) 1 mg IVPUSH Q6H PRN PRN Reason: ANXIETY Last Admin: 08/16/19 10:46 Dose: 1 mg Metoprolol Tartrate (Lopressor Injection -) 5 mg IVPUSH Q6H PRN PRN Reason: HYPERTENSION Last Admin: 08/17/19 08:26 Dose: 5 mg Morphine Sulfate (Morphine Sulfate) 0.5 mg SQ Q6H PRN PRN Reason: dyspnea Last Admin: 08/17/19 08:26 Dose: 0.5 mg Phenytoin Sodium (Dilantin Injection -) 100 mg IVPB Q8H [facility] Last Admin: 08/17/19 06:21 Dose: 100 mg Silver Sulfadiazine (Silvadene -) 1 applic TP DAILY [facility] Last Admin: 08/17/19 10:05 Dose: 1 applic Tamsulosin HCl (Flomax -) 0.8 mg PO DAILY@0830 [facility] Last Admin: 08/17/19 08:27 Dose: Not Given Valproate Sodium (Depacon Injection -) 500 mg IVPB BID [facility] Last Admin: 08/17/19 10:01 Dose: 500 mg - Objective Vital Signs: Vital Signs Temperature 98.4 F 08/17/19 10:00 Pulse Rate 158 H 08/17/19 10:00 Respiratory Rate 18 08/17/19 10:00 Blood Pressure 122/89 08/17/19 10:00 O2 Sat by Pulse Oximetry (%) 97 08/17/19 09:00 Constitutional: Yes: Well Nourished, No Distress, Calm Eyes: Yes: Conjunctiva Clear, EOM Intact HENT: Yes: Atraumatic, Normocephalic Neck: Yes: Supple, Trachea Midline Cardiovascular: Yes: Tachycardia, Pulse Irregular Respiratory: Yes: Diminished, On Nasal O2, Orthopnea, Rhonchi, SOB, SOB on Exertion Gastrointestinal: Yes: Normal Bowel Sounds, Soft ...Rectal Exam: Yes: Deferred Genitourinary: Yes: WNL Breast(s): Yes: WNL Musculoskeletal: Yes: Muscle Weakness Extremities: Yes: Other (generalized muscle weakness) Edema: No Peripheral Pulses WNL: Yes Peripheral Pulses: Left Radial: 2+, Right Radial: 2+, Left Doralis Pedis: 2+, Right Dorsalis Pedis: 2+, Left Femoral: 2+, Right Femoral: 2+ Integumentary: Yes: Pressure Ulcer (Both buttocks and lower legs) Wound/Incision: Yes: Open to air, Dressing Dry and Intact Neurological: Yes: Alert, Unsteady Gait, Weakness ...Motor Strength: LUE (generalized muscle weakness of all extremities) Psychiatric: Yes: Alert Labs: CBC, BMP 08/17/19 06:13 08/17/19 06:13 INR, PTT INR 0.97 (0.83-1.09) 08/06/19 20:20 - ....Imaging Other: Report Reviewed (Lab data reviewed) Problem List - Problems (1) COPD exacerbation Code(s): J44.1 - CHRONIC OBSTRUCTIVE PULMONARY DISEASE W (ACUTE) EXACERBATION (2) Acute respiratory failure with hypoxia and hypercapnia Code(s): J96.01 - ACUTE RESPIRATORY FAILURE WITH HYPOXIA; J96.02 - ACUTE RESPIRATORY FAILURE WITH HYPERCAPNIA (3) Adenocarcinoma of esophagus, stage 4 Code(s): C15.9 - MALIGNANT NEOPLASM OF ESOPHAGUS, UNSPECIFIED (4) Anemia Code(s): D64.9 - ANEMIA, UNSPECIFIED (5) Atelectasis of both lungs Code(s): J98.11 - ATELECTASIS (6) Tachycardia Code(s): R00.0 - TACHYCARDIA, UNSPECIFIED (7) Acute bronchitis Code(s): J20.9 - ACUTE BRONCHITIS, UNSPECIFIED (8) Focal motor seizure Code(s): G40.109 - LOCAL-REL SYMPTC EPI W SIMP PRT SEIZ,NOT NTRCT, W/O STAT EPI (9) Hypocalcemia Code(s): E83.51 - HYPOCALCEMIA (10) Hypoalbuminemia Code(s): E88.09 - OTH DISORDERS OF PLASMA-PROTEIN METABOLISM, NEC (11) Hypoproteinemia Code(s): E77.8 - OTHER DISORDERS OF GLYCOPROTEIN METABOLISM (12) Neutrophilic leukocytosis Code(s): D72.9 - DISORDER OF WHITE BLOOD CELLS, UNSPECIFIED (13) Decubitus ulcer of sacral region, stage 2 Code(s): L89.152 - PRESSURE ULCER OF SACRAL REGION, STAGE 2 (14) Decubitus ulcer of left leg, stage 2 Code(s): L89.892 - PRESSURE ULCER OF OTHER SITE, STAGE 2 (15) Decubitus ulcer of left buttock, stage 2 Code(s): L89.322 - PRESSURE ULCER OF LEFT BUTTOCK, STAGE 2 (16) Decubitus ulcer of right buttock, stage 2 Code(s): L89.312 - PRESSURE ULCER OF RIGHT BUTTOCK, STAGE 2 (17) Decubitus ulcer of right leg, stage 2 Code(s): L89.892 - PRESSURE ULCER OF OTHER SITE, STAGE 2 Assessment/Plan Assessment/plan: acute respiratory failure with hypoxia and hypercapnia, atrial fibrillation with rapid ventricular response, acute exacerbation of COPD, acute recurrent right focal seizures; IV fluids, IV Dilantin, IV Keppra, IV Depakote, IV Ativan, IV Morphine, IV Metoprolol, IV Diltiazem, IV Hydrocortisone, oxygen 3L/min via nasal cannula, SCD'S, DVT prophylaxis.
[2019-08-17] MEDS ORDERED: MORPHINE SULFATE 2 MG/ML VIAL SQ PRN (10:45)
--- NOTE | 2019-08-17 11:48 | PN ---
Progress Note (short form) - Note Progress Note: Resting in NAD on NC O2. Able to follow some simple commands. No fevers recorded. Intake & Output 08/14/19 08/15/19 08/16/19 08/17/19 23:59 23:59 23:59 23:59 Intake Total 1700 3100 3150 1050 Output Total 1200 400 500 400 Balance 500 2700 2650 650 Last Vital Signs Temp Pulse Resp BP Pulse Ox 98.4 F 158 H 18 122/89 97 08/17/19 10:00 08/17/19 10:00 08/17/19 10:00 08/17/19 10:00 08/17/19 09:00 Active Medications Albuterol Sulfate (Ventolin 0.083% Nebulizer Soln -) 1 amp NEB Q4H PRN PRN Reason: SHORT OF BREATH/WHEEZING Last Admin: 08/09/19 21:30 Dose: 1 amp Albuterol/Ipratropium (Duoneb -) 1 amp NEB RQID GE Last Admin: 08/17/19 08:09 Dose: 1 amp Diltiazem HCl (Cardizem Injection -) 5 mg IVPUSH Q8H PRN PRN Reason: TACHYCARDIA Last Admin: 08/16/19 06:42 Dose: 5 mg Hydrocortisone Sodium Succinate (Solu-Cortef -) 50 mg IVPUSH Q8H GE Last Admin: 08/17/19 08:25 Dose: 50 mg Vancomycin HCl (Vancomycin (Pre-Docked)) 1,000 mg in 250 mls @ 166.667 mls/hr IVPB Q24H GE; Protocol Last Admin: 08/16/19 15:06 Dose: 166.667 mls/hr Potassium Chloride/Dextrose/Sod Cl (D5-1/2ns+20 Meq Kcl -) 20 meq in 1,000 mls @ 75 mls/hr IV ASDIR GE Last Admin: 08/17/19 10:04 Dose: 75 mls/hr Levetiracetam (Keppra Injection -) 1,500 mg IVPB BID GE Last Admin: 08/17/19 10:04 Dose: 1,500 mg Lorazepam (Ativan Injection -) 1 mg IVPUSH Q6H PRN PRN Reason: ANXIETY Last Admin: 08/16/19 10:46 Dose: 1 mg Metoprolol Tartrate (Lopressor Injection -) 5 mg IVPUSH Q6H PRN PRN Reason: HYPERTENSION Last Admin: 08/17/19 08:26 Dose: 5 mg Morphine Sulfate (Morphine Sulfate) 0.5 mg SQ Q4H PRN PRN Reason: dyspnea Phenytoin Sodium (Dilantin Injection -) 100 mg IVPB Q8H [facility] Last Admin: 08/17/19 06:21 Dose: 100 mg Silver Sulfadiazine (Silvadene -) 1 applic TP DAILY [facility] Last Admin: 08/17/19 10:05 Dose: 1 applic Tamsulosin HCl (Flomax -) 0.8 mg PO DAILY@0830 [facility] Last Admin: 08/17/19 08:27 Dose: Not Given Valproate Sodium (Depacon Injection -) 500 mg IVPB BID [facility] Last Admin: 08/17/19 10:01 Dose: 500 mg Gen: Drowsy on NC O2, NAD Heart: irregular Lung: Bilateral rhonchi, decreased breath sounds at the bases Abd: soft, nontender Ext: no edema Laboratory Results - last 24 hr 08/17/19 08/17/19 06:13 06:13 WBC 11.5 H RBC 3.98 L Hgb 11.1 L Hct 34.0 L MCV 85.3 MCH 28.0 MCHC 32.8 RDW 20.0 H Plt Count 302 MPV 8.4 Absolute Neuts (auto) 9.8 H Neutrophils % 85.2 H Lymphocytes % 5.6 L D Monocytes % 8.9 Eosinophils % 0.1 D Basophils % 0.2 Nucleated RBC % 0 Sodium 140 Potassium 4.3 Chloride 104 Carbon Dioxide 33 H Anion Gap 3 L BUN 12.2 Creatinine 0.3 L Est GFR (CKD-EPI)AfAm 150.50 Est GFR (CKD-EPI)NonAf 129.85 Random Glucose 115 H Calcium 8.0 L Total Bilirubin 0.4 AST 47 H ALT 15 Alkaline Phosphatase 91 Total Protein 4.8 L Albumin 2.2 L A/P Acute on Chronic Hypoxic and Hypercapneic Respiratory Failure Acute COPD Exacerbation Pneumonia likely Aspiration Seizures Atrial Fibrillation with RVR 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
[2019-08-17] MEDS: dilTIAZem HCL 50 MG/10 ML - 10 ML VIAL IVPUSH PRN (12:21)
[2019-08-17] MEDS ORDERED: MORPHINE SULFATE/0.9% NACL/PF 100 MG/100 ML BAG IVPB SCH (13:30)
--- NOTE | 2019-08-17 15:34 | PN ---
Progress Note (short form) - Note Progress Note: 74 year old male history of esophageal cancer, COPD, atrial fibrillation. He was admitted for acute respiratory failure with hyoxia, and hypercapnia. Patient has right sided focal seizure. He do not have known mets or stroke in past. Patinet is able to follow simple command , Patient looks more bright and no focal seizure seen, he is brighter and follow simple command NEUROLOGICAL EXAMINATION opens eye and able to follow simple command no focal seizure were seen right sided hemiparesis there is no neck stiffnes vss , neck is supple CT head showed multiple mets in brain eeg showed left hemispheric seizure activity, epileptic discharged and generalized slowling Assessement /Plan right sided recurrent focal seizure, related to mets . Over all prognosis is guarded. focal seizure are improved after iv dilantin, keppra and ativan prn. no more focal seizure Plan: continue dilantin and keppra, and depakote - ativan prn - palliative care Thanking you so much Luis Angel Francisco MD
--- NOTE | 2019-08-17 16:27 | PN ---
Progress Note (short form) - Note Progress Note: more responsive remains tachycardic Vital Signs Period Temp Pulse Resp BP Sys/Cleaning Pulse Ox Last 24 Hr 97.7 F-98.8 F 156-167 18-20 107-152/67-89 97-97 cor-rrr lungs decreased bs at bases abd soft,nt ext no edema CBC, BMP 08/17/19 06:13 08/17/19 06:13 Microbiology 08/14/19 15:40 Urine - Urine Barba Urine Culture - Final Escherichia Coli Esbl Spectrograph Operator Yeast Like Organism 08/14/19 09:00 Sputum - Expectorated Gram Stain - Final 08/14/19 09:00 Sputum - Expectorated Sputum Culture - Final Pseudomonas Aeruginosa Mr S Aureus 08/15/19 17:40 Urine - Urine Barba Urine Culture - Preliminary 08/09/19 07:35 Blood - Peripheral Venous Blood Culture - Final NO GROWTH AFTER 5 DAYS INCUBATION 08/09/19 07:30 Blood - Peripheral Venous Blood Culture - Final NO GROWTH AFTER 5 DAYS INCUBATION 08/06/19 14:36 Urine - Urine - Catheterized Urine Culture - Final Yeast Like Organism Current Medications Diltiazem HCl (Cardizem Injection -) 5 mg IVPUSH Q8H PRN PRN Reason: TACHYCARDIA Last Admin: 08/17/19 12:21 Dose: 5 mg Hydrocortisone Sodium Succinate (Solu-Cortef -) 50 mg IVPUSH Q8H GE Last Admin: 08/17/19 15:19 Dose: 50 mg Potassium Chloride/Dextrose/Sod Cl (D5-1/2ns+20 Meq Kcl -) 20 meq in 1,000 mls @ 75 mls/hr IV ASDIR GE Last Admin: 08/17/19 10:04 Dose: 75 mls/hr Morphine Sulfate (Morphine 100mg/100ml-0.9% Nacl) 100 mg in 100 mls @ 1 mls/hr IVPB TITR GE; Protocol Last Admin: 08/17/19 15:18 Dose: 1 mg/hr, 1 mls/hr Levetiracetam (Keppra Injection -) 1,500 mg IVPB BID GE Last Admin: 08/17/19 10:04 Dose: 1,500 mg Lorazepam (Ativan Injection -) 1 mg IVPUSH Q6H PRN PRN Reason: ANXIETY Last Admin: 08/16/19 10:46 Dose: 1 mg Metoprolol Tartrate (Lopressor Injection -) 5 mg IVPUSH Q6H PRN PRN Reason: HYPERTENSION Last Admin: 08/17/19 08:26 Dose: 5 mg Phenytoin Sodium (Dilantin Injection -) 100 mg IVPB Q8H [facility] Last Admin: 08/17/19 13:30 Dose: 100 mg Silver Sulfadiazine (Silvadene -) 1 applic TP DAILY [facility] Last Admin: 08/17/19 10:05 Dose: 1 applic Tamsulosin HCl (Flomax -) 0.8 mg PO DAILY@0830 [facility] Last Admin: 08/17/19 08:27 Dose: Not Given Valproate Sodium (Depacon Injection -) 500 mg IVPB BID [facility] Last Admin: 08/17/19 10:01 Dose: 500 mg imp/reccd seizures- brain mets- antiepileptics and steroids leukocytosis- has completed 7 days of vanco/zosyn, no need to treat urine pathogens (low colony count, barba) esophageal cancer with brain mets for hospice care please call back of needed
[2019-08-18] MEDS: HYDROCORTISONE SOD SUCCINATE 100 MG/2 ML VIAL IVPUSH SCH ×3 (00:35→16:03)
[2019-08-18] MEDS: LORazepam 2 MG/ML SDV VIAL IVPUSH PRN (06:29)
[2019-08-18] MEDS: PHENYTOIN SODIUM 100 MG/2 ML VIAL IVPB SCH ×3 (06:29→23:03)
[2019-08-18 08:11] LABS: BASO % 0.4 % (0-2.0); LYMPH % 2.8 % (8-40); MCHC 31.7 g/dl (32.0-35.9); MEAN CELL VOLUME 88.3 fl (80-96); MEAN PLT VOLUME 8.9 fl (7.5-11.1); MONO % 7.4 % (3.8-10.2); NEUT % 89.4 % (42.8-82.8); PLATELET COUNT 388 K/MM3 (134-434); RDW 20.9 % (11.9-15.9); WHITE BLOOD COUNT 16.1 K/mm3 (4.0-10.0)
[2019-08-18 08:42] LABS: ALBUMIN 2.4 g/dl (3.4-5.0); BILIRUBIN,TOTAL 0.8 mg/dL (0.2-1); BLOOD UREA NITROGEN 16.2 mg/dL (7-18); CALCIUM 8.4 mg/dL (8.5-10.1); CREATININE 0.4 mg/dL (0.55-1.3); POTASSIUM 5.3 mmol/L (3.5-5.1); TOT PROT 5.6 g/dl (6.4-8.2)
[2019-08-18] MEDS ORDERED: PT OWN MED DRAWER 7, Y5N ONE (08:46)
[2019-08-18] MEDS: VALPROATE SODIUM 500 MG/5 ML VIAL IVPB SCH ×2 (09:02→23:02)
[2019-08-18] MEDS: D5-1/2NS+20 MEQ KCL - 20 MEQ/1,000 ML INFUS.BAG IV SCH ×2 (09:11→11:12)
[2019-08-18] MEDS: SILVER SULFADIAZINE 1% TOP CREAM 50 GM JAR TP SCH (09:45)
[2019-08-18] MEDS: PIPERACILLIN/TAZOB 3.375 GM 3.375 GM in DEXTROSE 5%-WATER - 50 ML IVPB SCH (11:11)
[2019-08-18] MEDS: TAMSULOSIN HCL 0.4 MG CAP PO SCH (11:12)
--- NOTE | 2019-08-18 11:20 | PN ---
Progress Note, Physician Chief Complaint: Patient seen and examined at the bedside, lethargic, arousable, on oxygen venti- mask 60%, tachycardic. History of Present Illness: Thomas 74 yr old w/m with hx of COPD, hypertension, stage 4 esophageal carcinoma , atrial fibrillation with rapid ventricular respone, and dementia admitted via ER with acute exacerbation of COPD, acute respiratory failure with hypoxia and hypercapnia. During hospitalization patient was noted to have an acute onset of recurrent right focal seizures. - Current Medication List Current Medications: Active Medications Diltiazem HCl (Cardizem Injection -) 5 mg IVPUSH Q8H PRN PRN Reason: TACHYCARDIA Last Admin: 08/17/19 12:21 Dose: 5 mg Hydrocortisone Sodium Succinate (Solu-Cortef -) 50 mg IVPUSH Q8H [facility] Last Admin: 08/18/19 08:58 Dose: 50 mg Potassium Chloride/Dextrose/Sod Cl (D5-1/2ns+20 Meq Kcl -) 20 meq in 1,000 mls @ 75 mls/hr IV ASDIR [facility] Last Admin: 08/18/19 11:12 Dose: Not Given Morphine Sulfate (Morphine 100mg/100ml-0.9% Nacl) 100 mg in 100 mls @ 1 mls/hr IVPB TITR [facility]; Protocol Last Infusion: 08/18/19 03:50 Dose: 1.5 mg/hr, 1.5 mls/hr Levetiracetam (Keppra Injection -) 1,500 mg IVPB BID [facility] Last Admin: 08/17/19 22:05 Dose: 1,500 mg Lorazepam (Ativan Injection -) 1 mg IVPUSH Q6H PRN PRN Reason: ANXIETY Last Admin: 08/18/19 06:29 Dose: 1 mg Metoprolol Tartrate (Lopressor Injection -) 5 mg IVPUSH Q6H PRN PRN Reason: HYPERTENSION Last Admin: 08/17/19 08:26 Dose: 5 mg Phenytoin Sodium (Dilantin Injection -) 100 mg IVPB Q8H [facility] Last Admin: 08/18/19 06:29 Dose: 100 mg Silver Sulfadiazine (Silvadene -) 1 applic TP DAILY [facility] Last Admin: 08/18/19 09:45 Dose: 1 applic Tamsulosin HCl (Flomax -) 0.8 mg PO DAILY@0830 [facility] Last Admin: 08/18/19 11:12 Dose: Not Given Valproate Sodium (Depacon Injection -) 500 mg IVPB BID [facility] Last Admin: 08/18/19 09:02 Dose: 500 mg - Objective Vital Signs: Vital Signs Temperature 97.3 F L 08/18/19 09:47 Pulse Rate 144 H 08/18/19 09:47 Respiratory Rate 28 H 08/18/19 09:47 Blood Pressure 90/60 08/18/19 09:47 O2 Sat by Pulse Oximetry (%) 88 L 08/17/19 21:00 Constitutional: Yes: Cachectic, Moderate Distress Eyes: Yes: Conjunctiva Clear, EOM Intact HENT: Yes: Atraumatic, Normocephalic Neck: Yes: Supple, Trachea Midline Cardiovascular: Yes: Tachycardia, Pulse Irregular Respiratory: Yes: Accessory Muscle Use, Diminished, On Venti-Mask, Orthopnea, Rhonchi, SOB, SOB on Exertion Gastrointestinal: Yes: Normal Bowel Sounds, Soft ...Rectal Exam: Yes: Deferred Genitourinary: Yes: Incontinence Breast(s): Yes: WNL Musculoskeletal: Yes: Muscle Weakness Extremities: Yes: Other (generalized muscle weakness) Edema: No Peripheral Pulses WNL: Yes Peripheral Pulses: Left Radial: 2+, Right Radial: 2+, Left Doralis Pedis: 2+, Right Dorsalis Pedis: 2+, Left Femoral: 2+, Right Femoral: 2+ Integumentary: Yes: Pressure Ulcer (Buttocks and lower legs) Wound/Incision: Yes: Open to air, Dressing Dry and Intact Neurological: Yes: Lethargy, Seizure, Unsteady Gait, Weakness ...Motor Strength: LUE (generalized muscle weakness of all extremities) Psychiatric: Yes: Other (lethargic) Labs: CBC, BMP 08/18/19 05:40 08/18/19 05:40 INR, PTT INR 0.97 (0.83-1.09) 08/06/19 20:20 - ....Imaging Other: Report Reviewed (Lab data reviewed) Problem List - Problems (1) COPD exacerbation Code(s): J44.1 - CHRONIC OBSTRUCTIVE PULMONARY DISEASE W (ACUTE) EXACERBATION (2) Acute respiratory failure with hypoxia and hypercapnia Code(s): J96.01 - ACUTE RESPIRATORY FAILURE WITH HYPOXIA; J96.02 - ACUTE RESPIRATORY FAILURE WITH HYPERCAPNIA (3) Adenocarcinoma of esophagus, stage 4 Code(s): C15.9 - MALIGNANT NEOPLASM OF ESOPHAGUS, UNSPECIFIED (4) Anemia Code(s): D64.9 - ANEMIA, UNSPECIFIED (5) Atelectasis of both lungs Code(s): J98.11 - ATELECTASIS (6) Tachycardia Code(s): R00.0 - TACHYCARDIA, UNSPECIFIED (7) Acute bronchitis Code(s): J20.9 - ACUTE BRONCHITIS, UNSPECIFIED (8) Focal motor seizure Code(s): G40.109 - LOCAL-REL SYMPTC EPI W SIMP PRT SEIZ,NOT NTRCT, W/O STAT EPI (9) Hypocalcemia Code(s): E83.51 - HYPOCALCEMIA (10) Hypoalbuminemia Code(s): E88.09 - OTH DISORDERS OF PLASMA-PROTEIN METABOLISM, NEC (11) Hypoproteinemia Code(s): E77.8 - OTHER DISORDERS OF GLYCOPROTEIN METABOLISM (12) Neutrophilic leukocytosis Code(s): D72.9 - DISORDER OF WHITE BLOOD CELLS, UNSPECIFIED (13) Decubitus ulcer of sacral region, stage 2 Code(s): L89.152 - PRESSURE ULCER OF SACRAL REGION, STAGE 2 (14) Decubitus ulcer of left leg, stage 2 Code(s): L89.892 - PRESSURE ULCER OF OTHER SITE, STAGE 2 (15) Decubitus ulcer of left buttock, stage 2 Code(s): L89.322 - PRESSURE ULCER OF LEFT BUTTOCK, STAGE 2 (16) Decubitus ulcer of right buttock, stage 2 Code(s): L89.312 - PRESSURE ULCER OF RIGHT BUTTOCK, STAGE 2 (17) Decubitus ulcer of right leg, stage 2 Code(s): L89.892 - PRESSURE ULCER OF OTHER SITE, STAGE 2 (18) Acute hyperkalemia Code(s): E87.5 - HYPERKALEMIA (19) Acute sepsis Code(s): A41.9 - SEPSIS, UNSPECIFIED ORGANISM (20) Transaminasemia Code(s): R74.0 - NONSPEC ELEV OF LEVELS OF TRANSAMNS & LACTIC ACID DEHYDRGNSE (21) Elevated alkaline phosphatase level Code(s): R74.8 - ABNORMAL LEVELS OF OTHER SERUM ENZYMES Assessment/Plan Assessment/plan: acute sepsis, acute exacerbation of COPD, acute respiratory failure with hypoxia and hypercapnia, acute recurrent right focal seizures secondary to brain mets due to stage 4 esophageal carcinoma, atrial fibrillation with rapid ventricular response, acute hyperkalemia, acute transaminasemia, acute elevated level of serum alkaline phosphatase; IV fluids, IV Hydrocortisone, IV Diltiazem, IV Metoprolol, IV Keppra, IV Dilantin, IV Ativan, IV Depakote, topical silver sulfadiazine, prognosis very poor.
[2019-08-18] MEDS ORDERED: DEXTROSE 5%-0.45% SALINE 1,000 ML IV SCH (11:30)
[2019-08-18] MEDS: levETIRAcetam 500 MG/5 ML INJECTION VIAL IVPB SCH ×2 (12:00→23:04)
[2019-08-18 12:21] LABS: PLATELET ESTIMATE ADEQUATE
[2019-08-18] MEDS ORDERED: MORPHINE SULFATE 2 MG/ML VIAL IVPUSH PRN (15:38)
--- NOTE | 2019-08-18 16:00 | PN ---
Progress Note (short form) - Note Progress Note: PULMONARY Remains lethargic. No fevers recorded. Vital Signs Period Temp Pulse Resp BP Sys/Cleaning Pulse Ox Last 24 Hr 97.3 F-99.2 F 144-165 20-28 90-154/60-93 88-88 Gen: lethargic Heart: irregular Lung: decreased breath sounds at the bases Abd: soft, nontender Ext: no edema CBC, BMP 08/18/19 05:40 08/18/19 05:40 Active Medications Diltiazem HCl (Cardizem Injection -) 5 mg IVPUSH Q8H PRN PRN Reason: TACHYCARDIA Last Admin: 08/17/19 12:21 Dose: 5 mg Hydrocortisone Sodium Succinate (Solu-Cortef -) 50 mg IVPUSH Q8H [facility] Last Admin: 08/18/19 08:58 Dose: 50 mg Dextrose/Sodium Chloride (D5-1/2ns -) 1,000 mls @ 75 mls/hr IV ASDIR [facility] Last Admin: 08/18/19 12:01 Dose: 75 mls/hr Levetiracetam (Keppra Injection -) 1,500 mg IVPB BID [facility] Last Admin: 08/18/19 12:00 Dose: 1,500 mg Lorazepam (Ativan Injection -) 1 mg IVPUSH Q6H PRN PRN Reason: ANXIETY Last Admin: 08/18/19 06:29 Dose: 1 mg Metoprolol Tartrate (Lopressor Injection -) 5 mg IVPUSH Q6H PRN PRN Reason: HYPERTENSION Last Admin: 08/17/19 08:26 Dose: 5 mg Morphine Sulfate (Morphine Sulfate) 2 mg IVPUSH Q4H PRN PRN Reason: PAIN LEVEL 1-5 Phenytoin Sodium (Dilantin Injection -) 100 mg IVPB Q8H [facility] Last Admin: 08/18/19 06:29 Dose: 100 mg Silver Sulfadiazine (Silvadene -) 1 applic TP DAILY [facility] Last Admin: 08/18/19 09:45 Dose: 1 applic Valproate Sodium (Depacon Injection -) 500 mg IVPB BID [facility] Last Admin: 08/18/19 09:02 Dose: 500 mg A/P Acute on Chronic Hypoxic and Hypercapneic Respiratory Failure Acute COPD Exacerbation Pneumonia likely Aspiration Seizures Atrial Fibrillation with RVR 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
[2019-08-19] MEDS: LORazepam 2 MG/ML SDV VIAL IVPUSH PRN (00:03)
[2019-08-19] MEDS: dilTIAZem HCL 50 MG/10 ML - 10 ML VIAL IVPUSH PRN (00:36)
[2019-08-19] MEDS: HYDROCORTISONE SOD SUCCINATE 100 MG/2 ML VIAL IVPUSH SCH (00:43)
[2019-08-19 04:21] VITALS: BP 106/58; PULSE 158; TEMP 97.6
--- NOTE | 2019-08-19 21:40 | DS ---
Physical Examination Vital Signs: Vital Signs Temperature 97.6 F 08/18/19 21:00 Pulse Rate 158 H 08/18/19 21:00 Respiratory Rate 20 08/18/19 21:00 Blood Pressure 106/58 L 08/18/19 21:00 O2 Sat by Pulse Oximetry (%) 92 L 08/18/19 21:00 Labs: CBC, BMP 08/18/19 05:40 08/18/19 05:40 Discharge Summary Problems reviewed: Yes Reason For Visit: ACUTE EXACERBATION OF C O P D Condition: - Instructions Diet, Activity, Other Instructions: Atrial fibrillation with RVR. Acute respiratory failure with hypoxia and hypercapnia. Acute exacerbation of COPD. Acute cardiorespiratory arrest. Patiet was pronounced at 3:45am. Total time spent over 30 min. Referrals: Piyush Cordoba [Primary Care Provider] - Disposition: - Home Medications Comprehensive Discharge Medication List: Ambulatory Orders Alprazolam [Xanax] 1 mg PO QID 03/06/18 Albuterol 0.083% Nebulizer Verna [Ventolin 0.083% Nebulizer Soln -] 1 amp NEB Q4H PRN amp 12/29/18 Atenolol [Tenormin -] 25 mg PO DAILY 30 Days #30 tablet 12/29/18 Diltiazem Cd [Cardizem Cd -] 120 mg PO DAILY 30 Days #30 cap.cd.24h 06/18/19 Folic Acid - 1 mg PO DAILY 30 Days #30 tablet 06/18/19 Tamsulosin HCl [Flomax -] 0.8 mg PO DAILY@0830 30 Days #60 cap.er.24h 06/18/19 Albuterol 2.5/Ipratropium 0.5 [Duoneb -] 1 amp NEB QID 07/20/19 Acetaminophen [Tylenol .Regular Strength -] 650 mg PO Q4H PRN tablet 07/30/19 Albuterol 0.083% Nebulizer Verna [Ventolin 0.083% Nebulizer Soln -] 1 amp NEB Q4H PRN amp 07/30/19 Albuterol 2.5/Ipratropium 0.5 [Duoneb -] 1 amp NEB RQID amp 07/30/19 Alprazolam [Xanax] 1 mg PO QID PRN #28 tablet MDD 4mg 07/30/19 Atenolol [Tenormin -] 25 mg PO DAILY tablet 07/30/19 Diltiazem Cd [Cardizem Cd -] 120 mg PO DAILY cap.cd.24h 07/30/19 Folic Acid - 1 mg PO DAILY tablet 07/30/19 Polyethylene Glycol 3350 [Miralax 119 gm Btl -] 17 gm PO DAILY bottle 07/30/19 Tamsulosin HCl [Flomax -] 0.8 mg PO DAILY@0830 cap.er.24h 07/30/19 predniSONE [Deltasone -] 40 mg PO DAILY tablet 07/30/19
== END 2019-08-19 07:17 | disposition expired | DRG 177 ==
LOC: JER 18:57 → SUPCPDRO 18:57 → JERBED 22:34 → J6S 08-07 15:00 → J4W 08-09 18:11
PROVIDERS: ADMIT Internal Medicine; ATTEND Internal Medicine
DX: J69.0 Pneumonitis due to inhalation of food and vomit (principal); J96.01 Acute respiratory failure with hypoxia; J96.02 Acute respiratory failure with hypercapnia; G93.6 Cerebral edema; C15.9 Malignant neoplasm of esophagus, unspecified; C79.31 Secondary malignant neoplasm of brain; J44.1 Chronic obstructive pulmonary disease with (acute) exacerbation; R64 Cachexia; Z68.1 Body mass index [BMI] 19.9 or less, adult; J98.11 Atelectasis; G40.909 Epilepsy, unspecified, not intractable, without status epilepticus; I48.91 Unspecified atrial fibrillation; E87.5 Hyperkalemia; R74.0 Nonspecific elevation of levels of transaminase and lactic acid dehydrogenase [LDH]; D72.829 Elevated white blood cell count, unspecified; F03.90 Unspecified dementia, unspecified severity, without behavioral disturbance, psychotic disturbance, mood disturbance, and anxiety; L89.322 Pressure ulcer of left buttock, stage 2; I10 Essential (primary) hypertension; L89.892 Pressure ulcer of other site, stage 2; L89.152 Pressure ulcer of sacral region, stage 2
CPT/HCPCS: 36415; 36600; 70450-TC; 71045-TC-FY; 80048; 80053; 81003; 82550; 82803; 83735; 83880; 84100; 84484; 85025; 85610; 85730; 87040; 87070; 87077; 87086; 87186; 87205; 93005; 93010; 94640; 94660; 95816; 97161-GP; 99284-25; J0131